=== PATIENT | male | born 1985 | race Caucasian/White ===

== ENCOUNTER 2024-03-09 09:45 | Emergency (ER) | payer OTHER, SELFPAY ==
[2024-03-09 09:47] VITALS: BP 91/63; PULSE 87; RESP 22; TEMP 36.3; O2SAT 95; BMI 50.2
--- NOTE | 2024-03-09 10:34 | CRLHL7_ITS ---
For Patients: As a result of the Cures Act, medical imaging exams and procedure reports are released immediately into your electronic medical record. You may view this report before your referring provider. If you have questions, please contact your health care provider. CLINICAL HISTORY: History of thrombectomy via right groin. Bleeding FINDINGS/IMPRESSION: Soft tissue edema at the surgical site with small 1.1 x 0.4 x 1.4 centimeter superficial complex fluid collection. Just deeper to this is a rounded complex fluid collection, avascular measuring 1.2 x 1.2 x 0.9 centimeters. Dictated by Moni Sahni MD @ 03/09/2024 12:00:20 PM (Electronically Signed)
[2024-03-09 10:48] VITALS: BP 117/55
--- OUTSIDE RECORDS SUMMARY | 2024-03-09 10:48 | XMS_ITS | Clinical Summary ---
Author Organization [facility] Address [address] [place] [address] Care Team Providers Care Ammonia Worker Name Role Phone Valentin Muñoz MD Primary Care Provider Valentin Muñoz MD Unavailable [phone] Allergies Active Allergy Reactions Criticality Noted Date Comments Cephalexin Hives Medium 10/14/2011 Medications Medication Sig Dispensed Refills Start Date End Date Status LORazepam (ATIVAN) 1 MG tablet Take 1 mg by mouth daily as needed for anxiety Active traZODone (DESYREL) 100 MG tablet Take 100 mg by mouth at bedtime 4 Active risperiDONE (RISPERDAL) 2 MG tablet Take 1 tablet by mouth at bedtime 4 Active FLUoxetine (PROZAC) 40 MG capsule Take 40 mg by mouth daily 4 Active hydrOXYzine (VISTARIL) 50 MG capsule Take 50 mg by mouth 3 times daily as needed for anxiety 4 Active acetaminophen (TYLENOL) 325 MG tabletIndications :Acute saddle pulmonary embolism with acute cor pulmonale (H) Take 2 tablets (650 mg) by mouth every 4 hours as needed for mild pain or other (and adjunct with moderate or severe pain or per patient request) 4 Active rivaroxaban ANTICOAGULANT (XARELTO) 2.5 MG TABS tabletIndications :DVT-PE Treatment Take 6 tablets (15 mg) by mouth 2 times daily (with meals) for 19 days, THEN 8 tablets (20 mg) daily (with dinner) for 30 days. 468 tablet 4 04/11/20 24 Active gabapentin (NEURONTIN) 600 MG tabletIndications :CAROLE (generalized anxiety disorder) Take 2 tablets (1,200 mg) by mouth at bedtime 30 tablet 2 4 Active amLODIPine (NORVASC) 10 MG tabletIndications :Essential hypertension Take 1 tablet (10 mg) by mouth daily HOLD IF SBP <130 90 tablet 3 4 Active rivaroxaban ANTICOAGULANT (XARELTO) 20 MG TABS tabletIndications :Acute deep vein thrombosis (DVT) of iliac vein of right lower extremity (H),Acute saddle pulmonary embolism with acute cor pulmonale (H) Take 1 tablet (20 mg) by mouth daily (with dinner) 90 tablet 4 Active amLODIPine (NORVASC) 10 MG tabletIndications :Essential hypertension TAKE 1 TABLET DAILY (OFFICE VISIT NEEDED PRIOR TO ADDITIONAL REFILLS) 90 tablet 3 3 02/22/20 24 Discontinued lisinopril-hydroc hlorothiazide (ZESTORETIC) 20-25 MG tabletIndications :Essential hypertension TAKE 2 TABLETS DAILY 180 tablet 3 3 02/22/20 24 Discontinued(Sto p at Discharge) OLANZapine (ZYPREXA) 10 MG tablet Take 1 tablet (10 mg) by mouth at bedtime 14 tablet 4 02/19/20 24 Discontinued(Med Rec(No AVS / No eCancel)) gabapentin (NEURONTIN) 800 MG tablet Take 1 tablet (800 mg) by mouth at bedtime 30 tablet 4 02/19/20 24 Discontinued(Med Rec(No AVS / No eCancel)) potassium chloride misa ER (KLOR-CON M10) 10 MEQ CR tablet Take 10 mEq by mouth daily 4 02/22/20 24 Discontinued(Sto p at Discharge) gabapentin (NEURONTIN) 600 MG tablet Take 1,200 mg by mouth at bedtime 02/23/20 24 Discontinued(Sto p at Discharge) amLODIPine (NORVASC) 10 MG tabletIndications :Essential hypertension Take 1 tablet (10 mg) by mouth daily HOLD IF SBP <130 90 tablet 3 4 02/23/20 24 Discontinued amLODIPine (NORVASC) 5 MG tabletIndications :Essential hypertension Take 1 tablet (5 mg) by mouth daily 30 tablet 2 07/06/02/23/20 24 Discontinued(Sto p at Discharge) Active Problems Problem Noted Date Diagnosed Date Acute deep vein thrombosis ( DVT) of iliac vein of right lower extremity 02/19/2024 Acute saddle pulmonary embolism with acute cor p ulmonale 02/19/2024 Severe recurrent major depre ssion without psychotic features 01/30/2024 CAROLE (generalized anxiety disorder) 01/30/2024 Suicidal ideation 01/30/2024 MDD (major depressive disorder), recurrent episo de, severe 01/30/2024 Insomnia, unspecified type 01/30/2024 Hypokalemia 01/17/2024 Adjustment disorder with anxious mood 01/17/2024 Psychosis, unspecified psychosis type 12/07/2023 Anxiety 12/07/2023 Paranoia 12/07/2023 Insomnia due to other mental disorder 12/07/2023 FAITH (obstructive sleep apnea) 03/24/2022 Overview: 03/21/2022 [facility] (410.0 lbs) - AHI 84.9, RDI 86.6, Supine AHI 103.6, REM AHI 76.3, Low O2 62.0%, Time Spent ?88% 143.1 minutes / Time Spent ?89% 188.1 minutes. Hypertension 03/12/2009 Morbid obesity 03/12/2009 Resolved Problems Problem Noted Date Diagnosed Date Resolved Date CARDIOVASCULAR SCREENING; LD L GOAL LESS THAN 160 06/20/2010 04/11/2023 Encounters Date Type Department Care Team Description 03/04/2024 Orders Only [facility] [address] [place] [phone] Minerva Campbell handle rounder operator deep vein thrombosis (DVT) of iliac vein of right lower extremity (H) (Primary Dx) 02/29/2024 4:02 PM CDT - 02/29/2024 11:59 PM CDT Hospital Encounter [facility] [address] [place] [phone] Valentin Muñoz MD 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) Discharge Disposition: Home or Self Care 02/28/2024 4:00 PM CDT [facility] [address] [place] [address] [address] [place] [phone] Valentin uMñoz MD Acute deep vein thrombosis (DVT) of iliac vein of right lower extremity (H) (Primary Dx); Acute saddle pulmonary embolism with acute cor pulmonale (H); 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) 02/28/2024 Travel 02/28/2024 Telephone [facility] [address] [facility] [address] [place] [phone] Josephine Krishnan PA-C sleep eval 02/21/[address] [facility] [place] [phone] Charanjit Rissa 02/19/2024 3:32 PM CDT - 02/23/2024 4:20 PM CDT Hospital Encounter [facility] [address] [place] [phone] Trigger, MD Ventura Lamb, Joshua Merino MD Hypertension (Primary Dx); Acute deep vein thrombosis (DVT) of iliac vein of right lower extremity (H); Acute saddle pulmonary embolism with acute cor pulmonale (H); Essential hypertension; CAROLE (generalized anxiety disorder) Discharge Disposition: Home or Self Care 02/19/2024 2:37 PM CDT - 02/19/2024 3:31 PM CDT Hospital Encounter [facility] [address] [place] [phone] Valentin Muñoz MD Right calf pain Discharge Disposition: Home or Self Care 02/19/2024 7:00 AM CDT Office Visit [facility] [address] [place] [address] [address] [place] [phone] Valentin Muñoz MD 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) (Primary Dx); Right calf pain 02/19/2024 Travel 02/18/2024 Travel 02/05/[address] [place] [phone] Valentin Muñoz MD Forms ([facility]) 02/05/2024 Telephone [facility] [address] [place] [address] [address] [place] [phone] Valentin Muñoz MD 02/02/2024 Telephone [facility] Intake [address] [facility] [place] [phone] Generic, Behavioral Intake, MH/CD Inpatient (/) 02/02/2024 Telephone [facility] Intake [address] [facility] [place] [phone] Generic, Behavioral Intake, MH/CD Inpatient 02/01/2024 Telephone [facility] Intake [address] [facility] [place] [phone] Generic, Behavioral Intake, MH/CD Inpatient 02/01/2024 [facility] Intake [address] [place] [phone] Generic, Behavioral Intake, MH/CD Inpatient 01/31/2024 [facility] [address] [place] [address] [address] [place] [phone] Valentin Muñoz MD Forms 01/31/2024 Telephone [facility] Intake [address] [facility] [place] [phone] Generic, Behavioral Intake, MH/CD Inpatient 01/30/2024 11:25 AM CDT - 02/02/2024 9:[address] [facility] Emergency Dept [address] [place] [phone] Mark Vidales MD Frohreich, Lucas, CNP Andish, Kevan K, MD Suicidal ideation; MDD (major depressive disorder), recurrent episode, severe (H); Psychosis, unspecified psychosis type (H); Insomnia, unspecified type Discharge Disposition: Psychiatric Hospital 01/30/2024 10:30 AM CDT Lab [facility] [address] [place] [phone] Acute paranoid reaction (H) 01/30/2024 Travel 01/24/2024 11:30 AM CDT Office Visit [facility] [address] [place] [address] [address] [place] [phone] Valentin Muñoz MD Severe recurrent major depressive disorder with psychotic features (H) (Primary Dx); Anxiety; Insomnia due to other mental disorder 01/24/2024 Travel 01/22/2024 Telephone [facility] [address] [facility] [address] [place] [phone] Valentin Muñoz MD Appointment; Same Day Appointment 01/17/2024 3:11 PM CDT - 01/18/2024 11:[address] [facility] Emergency Dept [address] [place] [phone] India Boyd MD Andish, Kevan K, MD Quigley, Emily, PREHEMMER COVER OPERATOR Anxiety; Psychosis, unspecified psychosis type (H); Other insomnia Discharge Disposition: Home or Self Care 01/17/2024 Travel 01/12/2024 Orders Only [facility] [address] [place] [phone] Sarah Robles APRN COVER OPERATOR 01/12/2024 Orders Only [facility] [id number] [place] [phone] Sarah Robles, LUIS COVER OPERATOR Acute paranoid reaction (H) (Primary Dx) 12/21/[address] [facility] Info [facility] [address] [facility] [place] [address] Scan, Non-Provider from Last 3 Months Immunizations Name Administration Dates Next Due COVID-19 MONOVALENT 12+ (Pfizer) 12/11/2020,040 09/2020 COVID-19 Monovalent Booster 18+ (Moderna) 08/16/2021 Historical DTP/aP 04/12/1991, 9,02/12/1985,1984,1984 Influenza (IIV3) PF 05/30/2012 Influenza Vaccine >6 months,quad, PF 08/16/2021 Influenza Vaccine, 6+MO IM (QUADRIVALENT W/PRESERVATIVES) 08/16/2021,06/15/2020,05/13/2019,2017,05/29/2017,05/26/2015 Influenza,INJ,MDCK,PF,Quad >6mo(Flucelvax) 06/15/2020 MMR 09/25/1996,10/22/1985 Poliovirus, inactivated (IPV) 04/12/1991 ,12/05/1988,02/12/1985,1984 TD,PF 7+ (Tenivac) 05/21/2005,09/25/1996 TDAP (Adacel,Boostrix) 04/11/2023,06/06/2012 Family History Medical History Relation Comments Diabetes Father Diabetes Mother Hypertension Mother Sleep Apnea Mother Hypertension Sister Relation Status Comments Father Alive Mother Alive Sister Social History Tobacco Use Types Packs/Day Years Used Date Smoking Tobacco: Never Passive Smoke Exposure: Never Smokeless Tobacco: Never Tobacco Cessation:Counseling Given: Not Answered Alcohol Use Standard Drinks/Week Comments Yes 0 (1 standard drink = 0.6 oz pur e alcohol) Social Connection and Isolat ion Panel [NHANES] Answer Date Recorded In a typical week, how many times do you talk on the phone with family, friends, or neighbors? Three times a week 04/04/2023 How often do you get togethe r with friends or relatives? More than three times a week 04/04/2023 How often do you attend chur or jain services? More than 4 times per year 04/04/2023 Do you belong to any clubs o r organizations such as episcopal groups, unions, fraternal or athletic groups, or school groups? Yes 04/04/2023 Attends Club or Organization Meetings Not on roger e 04/04/2023 Are you , , di vorced, , never , or living with a partner? 04/04/2023 AUDIT-C Answer Date Recorded Q1: How often do you have a drink containing alc ohol? Monthly or less 04/04/2023 Q2: How many drinks containi ng alcohol do you have on a typical day when you are drinking? 1 or 2 04/04/2023 Q3: How often do you have si x or more drinks on one occasion? Never 04/04/2023 Overall Financial Resource Strain (CARDIA) Answe r Date Recorded How hard is it for you to pa y for the very basics like food, housing, medical care, and heating? Not hard at all 04/04/2023 PHQ-2 Answer Date Recorded PHQ-2 Score 2 02/19/2024 [facility] - Occupational Stress Questionnaire Answer Date Recorded Do you feel stress - tense, restless, nervous, or anxious, or unable to sleep at night because your mind is troubled all the time - these days? Rather much 04/04/2023 Exercise Vital Sign Answer Date Recorde d On average, how many days pe r week do you engage in moderate to strenuous exercise (like a brisk walk)? 7 days 04/04/2023 On average, how many minutes do you engage in exercise at this level? 70 min 04/04/2023 Hunger Vital Sign Answer Date Recorded Within the past 12 months, y ou worried that your food would run out before you got the money to buy more. Never true 04/04/20 23 Within the past 12 months, t he food you bought just didn't last and you didn't have money to get more. Never true 04/04/2023 PRAPARE - Transportation Answer Date Re corded In the past 12 months, has l ack of transportation kept you from medical appointments or from getting medications? No 03/21 In the past 12 months, has l ack of transportation kept you from meetings, work, or from getting things needed for daily living? No 04/04/2023 Housing Stability Vital Sign Answer Dimas e Recorded In the last 12 months, was t here a time when you were not able to pay the mortgage or rent on time? No 04/04/2023 In the last 12 months, how many places have you lived? 1 04/04/2023 In the last 12 months, was t here a time when you did not have a steady place to sleep or slept in a penitentiary (including now)? No 04/04/2023 Adolescent Education Answer Date Record ed Getting School Help Needed Not on file 06/02 Sex and Gender Information Value Date Recorded Sex Assigned at Not on file Gender Identity Not on file Sexual Orientation Not on file Last Filed Vital Signs Vital Sign Reading Time Taken Comments Blood Pressure 94/67 02/28/2024 3:51 PM CDT Pulse 106 02/28/2024 3:43 PM CDT Temperature 36.4 ??C (97.6 ??F) 02/28/2024 3:43 PM CD T Respiratory Rate 24 02/28/2024 3:43 PM CDT Oxygen Saturation 96% 02/28/2024 3:43 PM CDT Inhaled Oxygen Concentration - - Weight 168.9 kg (372 lb 4.8 oz) 02/28/2024 3:43 PM CDT Height 182.9 cm (6') 02/28/2024 3:43 PM CDT Body Mass Index 50.49 02/28/2024 3:43 PM CDT Plan of Treatment Upcoming Encounters Date Type Department Care Team (Late st Contact Info) Description 04/01/2024 2:[address] [facility] [address] [place] [phone] India Kimble MD [facility] [address] [place], [place] [address] 04/01/2024 2:40 PM CDT Office Visit [facility] [address] [place] [phone] India Kimble MD [facility] [address] [place] [address] 04/09/2024 2:00 PM CDT Office Visit [facility] [address] [place] [phone] Valentin Muñoz MD [address] [facility] [place] [address] Roro Acevedo PA-C [address] [place], [place] [address] 06/18/2024 12:00 PM CDT Virtual Visit [facility] [address] [place] [address] Josephine Krishnan PA-C [address] [address] Health Maintenance Due Date Last Done Comments ANNUAL REVIEW OF HM ORDERS 1984 DEPRESSION ACTION PLAN 1984 HF ACTION PLAN 1984 Pneumococcal Vaccine: Pediatrics (0 to 5 Years) and At-Risk Patients (6 to 64 Years) (1 of 2 - PCV) 1990 COVID-19 Vaccine ( season) 2023 08/16/2021, 12/11/2020, 11/20/2020 YEARLY PREVENTIVE VISIT 04/11/2024 04/11/20 23, 01/28/2022, 10/09/2020, Additional history exists INFLUENZA VACCINE (#1) 2024 , 08/16/2021, 06/15/2020, Additional history exists PHQ-9 07/25/2024 01/24/2024 BMP 08/24/2024 02/22/2024, 07/0 10/2023, 02/20/2024, Additional history exists LIPID 01/29/2025 01/30/2024, 01/19, 03/19/2009 ALT 02/19/2025 02/20/2024, 07/0 08/2023, 01/17/2024, Additional history exists CBC 02/19/2025 02/20/2024, 07/0 08/2023, 01/30/2024, Additional history exists ADVANCE CARE PLANNING 10/10/2025 10/10/2020 GLUCOSE 02/21/2027 02/22/2024, 07/0 10/2023, 02/21/2024, Additional history exists DTAP/TDAP/TD IMMUNIZATION (7 - Td or Tdap) 04/11/2033 04/11/2023, 06/06/2012, 05/21/2005, Additional history exists IPV IMMUNIZATION Completed 04/12/1991, , 02/12/1985, Additional history exists TSH W/FREE T4 REFLEX Completed 01/30/2024, 01/16/2023, 02/26/2009 HEPATITIS B IMMUNIZATION Discontinued HEPATITIS C SCREENING Discontinued HIV SCREENING Discontinued HPV IMMUNIZATION Aged Out No longer e ligible based on patient's age to complete this topic MENINGITIS IMMUNIZATION Aged Out No l onger eligible based on patient's age to complete this topic RSV MONOCLONAL ANTIBODY Aged Out No l onger eligible based on patient's age to complete this topic Procedures Procedure Name Priority Date/Time Associated Diagnosis Comments CT HEAD W/O CONTRAST Routine 02/29/2024 4:23 PM CDT 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) POTASSIUM Timed 02/22/2024 6:21 PM CDT HEMOGLOBIN Routine 02/22/2024 6:24 AM CDT BASIC METABOLIC PANEL Routine 02/22/2024 6:24 AM CDT BLOOD GAS VENOUS STAT 02/21/2024 3:39 PM CDT HEMOGLOBIN STAT 02/21/2024 10:04 AM CDT GLUCOSE BY METER Routine 02/21/2024 7:35 AM CDT HEPARIN UNFRACTIONATED ANTI XA LEVEL Timed 02/21/2024 7:34 AM CDT POTASSIUM Timed 02/21/2024 7:34 AM CDT BASIC METABOLIC PANEL Routine 02/21/2024 7:34 AM CDT HEMOGLOBIN Routine 02/21/2024 7:34 AM CDT HEPARIN UNFRACTIONATED ANTI XA LEVEL Timed 02/21/2024 12:19 AM CDT POTASSIUM Timed 02/21/2024 12:19 AM CDT IR LOWER EXTREMITY VENOGRAM RIGHT Routine 02/20/2024 5:51 PM CDT Acute deep vein thrombosis (DVT) of iliac vein of right lower extremity (H) ACTIVATED CLOTTING TIME CELITE POCT Routine 02/20/2024 5:11 PM CDT HEPARIN UNFRACTIONATED ANTI XA LEVEL Timed 02/20/2024 1:14 PM CDT ECHO COMPLETE WITH CONTRAST Routine 02/20/2024 12:45 PM CDT TROPONIN T, HIGH SENSITIVITY Add-On 02/20/2024 5:33 AM CDT MAGNESIUM Add-On 02/20/2024 5:33 AM CDT CBC WITH PLATELETS Routine 02/20/2024 5: 33 AM CDT COMPREHENSIVE METABOLIC PANEL Routine 02/20/2024 5:33 AM CDT HEPARIN UNFRACTIONATED ANTI XA LEVEL Timed 02/20/2024 5:33 AM CDT GLUCOSE BY METER Routine 02/20/2024 1:34 AM CDT HEPARIN UNFRACTIONATED ANTI XA LEVEL Timed 02/19/2024 10:47 PM CDT IR PULMONARY ANGIOGRAM BILATERAL STAT 02/19/2024 9:06 PM CDT Acute deep vein thrombosis (DVT) of iliac vein of right lower extremity (H) CT CHEST PULMONARY EMBOLISM W CONTRAST STAT 02/19/2024 6:15 PM CDT CBC WITH PLATELETS & DIFFERENTIAL STAT 02/19/2024 3:55 PM CDT CBC WITH PLATELETS AND DIFFERENTIAL STAT 02/19/2024 3:55 PM CDT NT PROBNP INPATIENT STAT 02/19/2024 3 :55 PM CDT BLOOD GAS VENOUS STAT 02/19/2024 3:55 PM CDT TROPONIN T, HIGH SENSITIVITY STAT 02/19/2024 3:55 PM CDT COMPREHENSIVE METABOLIC PANEL STAT 02/19/2024 3:55 PM CDT D DIMER QUANTITATIVE STAT 02/19/2024 3:55 PM CDT EKG 12-LEAD, TRACING ONLY STAT 02/19/2024 3:43 PM CDT US LOWER EXTREMITY VENOUS DUPLEX RIGHT STAT 02/19/2024 3:09 PM CDT Right calf pain POTASSIUM STAT 02/02/2024 7:26 AM CDT POTASSIUM STAT 02/01/2024 11:41 PM CDT COVID-19 VIRUS (CORONAVIRUS) BY PCR STAT 01/31/2024 7:31 AM CDT URINE DRUG SCREEN STAT 01/30/2024 1:2 5 PM CDT URINE DRUG SCREEN PANEL STAT 01/30/20 24 1:25 PM CDT EXTRA RED TOP TUBE STAT 01/30/2024 1: 24 PM CDT EXTRA BLUE TOP TUBE STAT 01/30/2024 1 :24 PM CDT EXTRA TUBE STAT 01/30/2024 1:24 PM CDT TROPONIN T, HIGH SENSITIVITY STAT 01/30/2024 1:19 PM CDT BASIC METABOLIC PANEL STAT 01/30/2024 1:19 PM CDT CBC WITH PLATELETS STAT 01/30/2024 1: 19 PM CDT TSH WITH FREE T4 REFLEX Routine 01/30/20 10:21 AM CDT Acute paranoid reaction (H) LIPID REFLEX TO DIRECT LDL PANEL Routine 01/30/2024 10:21 AM CDT Acute paranoid reaction (H) GLUCOSE Routine 01/30/2024 10:21 AM CDT Acute paranoid reaction (H) HEMOGLOBIN A1C Routine 01/30/2024 10:21 AM CDT Acute paranoid reaction (H) URINE DRUG SCREEN STAT 01/17/2024 11: 57 PM CDT URINE DRUG SCREEN PANEL STAT 01/17/20 11:57 PM CDT CBC WITH PLATELETS & DIFFERENTIAL STAT 01/17/2024 3:36 PM CDT MAGNESIUM STAT 01/17/2024 3:36 PM CDT CBC WITH PLATELETS AND DIFFERENTIAL STAT 01/17/2024 3:36 PM CDT LACTIC ACID WHOLE BLOOD WITH 1X REPEAT IN 2 HR WHEN >2 STAT 01/17/2024 3:36 PM CDT COMPREHENSIVE METABOLIC PANEL STAT 01/17/2024 3:36 PM CDT EKG 12-LEAD, TRACING ONLY STAT 01/17/2024 3:35 PM CDT from Last 3 Months Results * CT Head w/o Contrast (02/29/2024 4:23 PM CDT) Anatomical Region Laterality Modality Head, SUBRAD CT NEURO, SUBRA D CT NEURO, UMP CT NEURO, RAD CT Computed Tomography Impressions 03/01/2024 5:26 PM CDT IMPRESSION: 1. No CT findings of acute intracranial process. 2. Incidental extracranial findings, as described. GRTEA CAMPO MD Narrative 03/01/2024 5:[address] SCAN OF THE HEAD WITHOUT CONTRAST ?? 02/29/2024 4:23 PM HISTORY: Fairly sudden onset of severe depression. Imaging to ensure there is not a major structural cause. 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). TECHNIQUE: ??Axial images of the head and coronal reformations without IV contrast material. Radiation dose for this scan was reduced using automated exposure control, adjustment of the mA and/or kV according to patient size, or iterative reconstruction technique. COMPARISON: None. FINDINGS: There is no evidence of intracranial hemorrhage, mass, acute infarct or anomaly. The ventricles are normal in size, shape and configuration. The brain parenchyma and subarachnoid spaces are normal. There is a probable small retention cyst or polyp in the right maxillary sinus. Otherwise, the visualized paranasal sinuses are free of significant disease. The mastoid and middle ear cavities appear clear. The bony calvarium and bones of the skull base appear intact. There is an ovoid nonspecific small soft tissue lesion that is mildly heterogeneous in density with a few small foci of internal calcification measuring approximately 11 mm, positioned within the subcutaneous soft tissues of the right parietal scalp (series 5 image 54), which may represent a sebaceous cyst/epidermal inclusion cyst. Procedure Note Greta Campo MD - 03/01/2024 CT SCAN OF THE HEAD WITHOUT CONTRAST 02/29/2024 4:23 PM HISTORY: Fairly sudden onset of severe depression. Imaging to ensure there is not a major structural cause. 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). TECHNIQUE: Axial images of the head and coronal reformations without IV contrast material. Radiation dose for this scan was reduced using automated exposure control, adjustment of the mA and/or kV according to patient size, or iterative reconstruction technique. COMPARISON: None. FINDINGS: There is no evidence of intracranial hemorrhage, mass, acute infarct or anomaly. The ventricles are normal in size, shape and configuration. The brain parenchyma and subarachnoid spaces are normal. There is a probable small retention cyst or polyp in the right maxillary sinus. Otherwise, the visualized paranasal sinuses are free of significant disease. The mastoid and middle ear cavities appear clear. The bony calvarium and bones of the skull base appear intact. There is an ovoid nonspecific small soft tissue lesion that is mildly heterogeneous in density with a few small foci of internal calcification measuring approximately 11 mm, positioned within the subcutaneous soft tissues of the right parietal scalp (series 5 image 54), which may represent a sebaceous cyst/epidermal inclusion cyst. IMPRESSION: 1. No CT findings of acute intracranial process. 2. Incidental extracranial findings, as described. GRETA CAMPO MD Valentin Muñoz MD IMG CT ORDERABLES * Potassium (02/22/2024 6:21 PM CDT) Only the most recent of5 resultswithin the time period is included. Potassium 3.8 3.4 - 5.3 mmol/L 02/22/2024 6:56 PM CDT LABORATORY Blood STRUCTURE OF FINGER OF LEFT HAND / Unknown Capillary / Unknown 02/22/2024 6:21 PM CDT 02/22/2024 6:40 PM CDT Catherine Wilburn DO LAB - BLOOD O RDERABLES LABORATORY [facility] [address], [address] [place] [address], [facility] [facility] [phone] * (ABNORMAL) Hemoglobin (02/22/2024 6:24 AM CDT) Only the most recent of3 resultswithin the time period is included. Hemoglobin 12.2(L) 13.3 - 17.7 g/dL 02/22/2024 7:04 AM CDT LABORATORY Blood STRUCTURE OF LEFT HAND / Unknown Venipuncture / Unknown 02/22/2024 6:24 AM CDT 02/22/2024 6:58 AM CDT Daiana Tai MD LAB - BLOOD ORDERABL ES LABORATORY [facility] [address], [address] [place] [address], [facility] [phone] * (ABNORMAL) Basic metabolic panel (02/22/2024 6:24 AM CDT) Only the most recent of3 resultswithin the time period is included. Sodium 134(L) 135 - 145 mmol/L 02/22/2024 7:31 AM CDT LABORATORY Potassium 3.3(L) 3.4 - 5.3 mmol/L 02/22/2024 7:31 AM CDT LABORATORY Chloride 101 98 - 107 mmol/L 02/22/2024 7:31 AM T LABORATORY Carbon Dioxide (CO2) 25 22 - 29 mmol/L 02/22/2024 7:31 AM T LABORATORY Anion Gap 8 7 - 15 mmol/L 02/22/2024 7:31 AM CDT LABORATORY Urea Nitrogen 12.7 6.0 - 20.0 mg/dL 02/22/2024 7:31 AM CDT LABORATORY Creatinine 0.72 0.67 - 1.17 mg/dL 02/22/2024 7:31 AM CDT LABORATORY GFR Estimate >90 >60 mL/min/1.7 3m2 02/22/2024 7:31 AM T LABORATORY Comment:eGFR calculated usin 2020 CKD-EPI equation. Calcium 8.2(L) 8.6 - 10.0 mg/dL 02/22/2024 7:31 AM CDT LABORATORY Glucose 99 70 - 99 mg/dL 02/22/2024 7:31 AM T LABORATORY Blood STRUCTURE OF LEFT HAND / Unknown Venipuncture / Unknown 02/22/2024 6:24 AM CDT 02/22/2024 6:58 AM CDT Daiana Tai MD LAB - BLOOD ORDERABL ES LABORATORY [facility] [address], [address] [place] [address], [facility] [phone] * (ABNORMAL) Blood gas venous (02/21/2024 3:39 PM CDT) Only the most recent of2 resultswithin the time period is included. pH Venous 7.45(H) 7.32 - 7.43 02/21/2024 3:55 PM CDT LABORATORY pCO2 Venous 35(L) 40 - 50 mm Hg 02/21/2024 3:55 PM CDT LABORATORY pO2 Venous 59(H) 25 - 47 mm Hg 02/21/2024 3:55 PM CDT LABORATORY Bicarbonate Venous 25 21 - 28 mmol/L 02/21/2024 3:55 PM CDT LABORATORY Base Excess/Deficit Venous 0.9 -3.0 - 3.0 mmol/L 02/21/2024 3:55 PM CDT LABORATORY FIO2 0 PAUL 02/21/2024 3:55 PM CDT LABORATORY Oxyhemoglobin Venous 91(H) 70 - 75 % 02/21/2024 3:55 PM CDT LABORATORY O2 Sat, Venous 92.4(H) 70.0 - 75.0 % 02/21/2024 3:55 PM CDT LABORATORY Blood, venous STRUCTURE OF LEFT HAND / Unknown Venipuncture / Unknown 02/21/2024 3:39 PM CDT 02/21/2024 3:54 PM CDT Narrative LABORATORY - 02/21/2024 3:55 PM CDT In healthy individuals, oxyhemoglobin (O2Hb) and oxygen saturation (SO2) are approximately equal. In the presence of dyshemoglobins, oxyhemoglobin can be considerably lower than oxygen saturation. Daiana Tai MD LAB - BLOOD ORDERABL ES LABORATORY [facility] [address] 1[address], Room [address] [place] [address], [facility] [phone] * (ABNORMAL) Glucose by meter (02/21/2024 7:35 AM CDT) Only the most recent of2 resultswithin the time period is included. GLUCOSE BY METER POCT 113(H) 70 - 99 mg/dL 02/21/2024 7:42 AM CDT LABORATORY POC Blood, Capillary BLOOD SPECIMEN / Unknown 02/21/2024 7:35 AM CDT 02/21/2024 7:42 AM CDT Joshua Whitehead MD LAB - BEAKER POCT LABORATORY POC [facility] [address], [address] [address], [facility] * Heparin Unfractionated Anti Xa Level (02/21/2024 7:34 AM CDT) Only the most recent of5 resultswithin the time period is included. [facility] Signature Anti Xa Unfractionated Heparin 0.38 For Reference Range, See Comment IU/mL 02/21/2024 8:01 AM CDT LABORATORY Blood STRUCTURE OF LEFT HAND / Unknown Venipuncture / Unknown 02/21/2024 7:34 AM CDT 02/21/2024 7:41 AM CDT Narrative LABORATORY - 02/21/2024 8:01 AM CDT Therapeutic Range: UFH: 0.25-0.50 IU/mL for low intensity dosing, 0.30-0.70 IU/mL for high intensity dosing DVT and PE. This test is not validated for other direct factor X inhibitors (e.g. rivaroxaban, apixaban, edoxaban, betrixaban, fondaparinux) and should not be used for monitoring of other medications. Joshua Whitehead MD LAB - BLOOD ORDERAB LES LABORATORY [facility] [address] 1[address], [address] [place] [address], [facility] [phone] * IR Lower Extremity Venogram Right (02/20/2024 5:51 PM CDT) Anatomical Region Laterality Modality Lower Extremity Radio Fluoroscop y Impressions 02/23/2024 7:51 AM CDT IMPRESSION: 1. Mechanical thrombectomy in the right common femoral, femoral, and above knee popliteal veins. Large volume of thrombus was removed. These segments are widely patent at completion. Concern will be for lack of inflow through the calf veins and popliteal veins into the femoral vein in recurrence of thrombosis. Patient to continue aggressive heparinization. 2. Flow stasis device applied with a pursestring suture at the access site of the popliteal vein, to be removed in one to two days. INDIA KIMBLE MD Narrative 02/23/2024 7:51 AM CDT INTERVENTIONAL RADIOLOGY RIGHT LOWER EXTREMITY VENOGRAM February 20, 2024 at 1651 hours HISTORY: 38-year-old patient with history of deep vein thrombosis in the right lower extremity. Patient had acute onset right lower extremity pain proximally one week prior. Patient had pulmonary embolus thrombectomy performed the day prior, request now made for thrombectomy of DVT in the right lower extremity. Patient had ultrasound examination suggesting thrombus extension into the external iliac venous system. I had a lengthy discussion with patient and regarding options including heparinization, mechanical thrombectomy, thrombolysis, and no thrombectomy with IVC filter. It was agreed to proceed with thrombectomy. TECHNIQUE: Patient was brought to the interventional radiology department and informed consent obtained. Patient was placed in a prone position. Skin overlying the right popliteal fossa was prepped and draped in standard sterile fashion. 1% lidocaine was used for local anesthetic. Ultrasound was used to confirm thrombus in the popliteal vein. With continuous ultrasound guidance, micropuncture kit was used to access the right popliteal vein. Over series of maneuvers, 6 Jordanian vascular sheath was placed. Berenstein catheter was placed in the popliteal vein, femoral vein, common femoral vein, common iliac vein, and IVC where venograms were performed. Catheter was then used to advance a super stiff Amplatz wire to the ipsilateral subclavian vein. 13 Jordanian sheath was then placed and 8 mm balloon angioplasties did FLAIR the basket of the sheath. Mechanical thrombectomy was then performed repeatedly with probable 15-28 passes. Also required exchange of three separate ClotTriever in two separate sheaths given the thrombus occluding both sections. Completion venogram was performed demonstrating good result. Minimal residual thrombus in the mid femoral vein, though nonocclusive. Multiple additional attempts were made for mechanical thrombectomy at this location, though unsuccessful. Venogram performed demonstrating otherwise widely patent femoral, common femoral, iliac and IVC venous systems at completion. Sheath was removed and pursestring suture applied. Limitation has no inflow to the femoral vein given diffuse thrombus in the popliteal and runoff veins. Plan will be for heparinization and hope that some flow is established into the femoral vein given concern for recurrent thrombosis. After removal of the sheath, hemostasis was achieved with manual compression for an additional 15 minutes. Sedation: Moderate level sedation was achieved with 5 mg IV Versed and 250 mcg IV fentanyl. Sedation time: 100 minutes. Please note the above medications were administered by interventional radiology staff under my direct supervision. The patient's vital signs were monitored and remained stable throughout the procedure. Patient had a heparin drip continued throughout the procedure and additional bolus of 4000 units of IV heparin was administered. Fluoroscopic time: 11.8 minutes. Air Kerma: 562.6 mGy. Contrast: 90 mL of Isovue administered intravenously without complication. Local anesthetic: 10 mL of 1% lidocaine. FINDINGS: A total of fifteen spot fluoroscopic images in venogram sequences were obtained throughout the procedure. Initial venogram confirms diffuse thrombosis throughout the right popliteal, femoral, and common femoral veins. A segment of the more proximal right common femoral vein is patent. Iliac veins are patent. Venogram performed in the iliac veins and IVC demonstrate wide patency. 8 mm balloon angioplasty performed within the above-knee popliteal vein. Mechanical thrombectomy then performed with variable success. Eventually, able to remove the thrombus with only a tiny residual nonocclusive segment in the mid femoral vein. This was unable to be removed after multiple attempts. The thrombectomized veins are widely patent at completion, though suspect minimal if any inflow to the femoral vein via the popliteal vein. Procedure Note India Kimble MD - 02/23/2024 INTERVENTIONAL RADIOLOGY RIGHT LOWER EXTREMITY VENOGRAM February 20, 2024 at 1651 hours HISTORY: 38-year-old patient with history of deep vein thrombosis in the right lower extremity. Patient had acute onset right lower extremity pain proximally one week prior. Patient had pulmonary embolus thrombectomy performed the day prior, request now made for thrombectomy of DVT in the right lower extremity. Patient had ultrasound examination suggesting thrombus extension into the external iliac venous system. I had a lengthy discussion with patient and regarding options including heparinization, mechanical thrombectomy, thrombolysis, and no thrombectomy with IVC filter. It was agreed to proceed with thrombectomy. TECHNIQUE: Patient was brought to the interventional radiology department and informed consent obtained. Patient was placed in a prone position. Skin overlying the right popliteal fossa was prepped and draped in standard sterile fashion. 1% lidocaine was used for local anesthetic. Ultrasound was used to confirm thrombus in the popliteal vein. With continuous ultrasound guidance, micropuncture kit was used to access the right popliteal vein. Over series of maneuvers, 6 Jordanian vascular sheath was placed. Berenstein catheter was placed in the popliteal vein, femoral vein, common femoral vein, common iliac vein, and IVC where venograms were performed. Catheter was then used to advance a super stiff Amplatz wire to the ipsilateral subclavian vein. 13 Jordanian sheath was then placed and 8 mm balloon angioplasties did FLAIR the basket of the sheath. Mechanical thrombectomy was then performed repeatedly with probable 15-28 passes. Also required exchange of three separate ClotTriever in two separate sheaths given the thrombus occluding both sections. Completion venogram was performed demonstrating good result. Minimal residual thrombus in the mid femoral vein, though nonocclusive. Multiple additional attempts were made for mechanical thrombectomy at this location, though unsuccessful. Venogram performed demonstrating otherwise widely patent femoral, common femoral, iliac and IVC venous systems at completion. Sheath was removed and pursestring suture applied. Limitation has no inflow to the femoral vein given diffuse thrombus in the popliteal and runoff veins. Plan will be for heparinization and hope that some flow is established into the femoral vein given concern for recurrent thrombosis. After removal of the sheath, hemostasis was achieved with manual compression for an additional 15 minutes. Sedation: Moderate level sedation was achieved with 5 mg IV Versed and 250 mcg IV fentanyl. Sedation time: 100 minutes. Please note the above medications were administered by interventional radiology staff under my direct supervision. The patient's vital signs were monitored and remained stable throughout the procedure. Patient had a heparin drip continued throughout the procedure and additional bolus of 4000 units of IV heparin was administered. Fluoroscopic time: 11.8 minutes. Air Kerma: 562.6 mGy. Contrast: 90 mL of Isovue administered intravenously without complication. Local anesthetic: 10 mL of 1% lidocaine. FINDINGS: A total of fifteen spot fluoroscopic images in venogram sequences were obtained throughout the procedure. Initial venogram confirms diffuse thrombosis throughout the right popliteal, femoral, and common femoral veins. A segment of the more proximal right common femoral vein is patent. Iliac veins are patent. Venogram performed in the iliac veins and IVC demonstrate wide patency. 8 mm balloon angioplasty performed within the above-knee popliteal vein. Mechanical thrombectomy then performed with variable success. Eventually, able to remove the thrombus with only a tiny residual nonocclusive segment in the mid femoral vein. This was unable to be removed after multiple attempts. The thrombectomized veins are widely patent at completion, though suspect minimal if any inflow to the femoral vein via the popliteal vein. IMPRESSION: 1. Mechanical thrombectomy in the right common femoral, femoral, and above knee popliteal veins. Large volume of thrombus was removed. These segments are widely patent at completion. Concern will be for lack of inflow through the calf veins and popliteal veins into the femoral vein in recurrence of thrombosis. Patient to continue aggressive heparinization. 2. Flow stasis device applied with a pursestring suture at the access site of the popliteal vein, to be removed in one to two days. INDIA KIMBLE MD Joshua Whitehead MD [facility] IR ORDERABLES * Activated clotting time celite, POCT (02/20/2024 5:11 PM CDT) [facility] Activated Clotting Time (Celite) POCT 140 74 - 150 seconds 02/20/2024 5:45 PM CDT LABORATORY POC Blood, venous BLOOD SPECIMEN / Unknown 02/20/2024 5:11 PM CDT 02/20/2024 5:45 PM CDT Joshua Whitehead MD [facility] POCT LABORATORY POC [facility] [address] 1[address], [address] [place] [address], [facility] * ECHO COMPLETE WITH CONTRAST (02/20/2024 12:45 PM CDT) [facility] LVEF 60% CARDIOLOGY RESULTS Anatomical Region Laterality Modality Echocardiography 02/20/2024 12:1 7 PM CDT Narrative 02/20/2024 12:56 PM [facility] [id number]^ZAIRE^DAIANA [facility] Echocardiography Laboratory [address] [place] [address] Name: ANT FONTAINE : 1985 Study Date: 02/20/2024 12:17 PM Age: 38 yrs Gender: Male Patient Location: [facility] Reason For Study: SOB Ordering Physician: DAIANA TAI Referring Physician: Valentin Muñoz Performed By: Earnest Bellamy BSA: 2.8 m2 Height: 72 in Weight: 380 lb HR: 94 BP: 120/78 mmHg Procedure Complete Portable Echo Adult. [employer]ison ([facility] #[id number]) given intravenously. Interpretation Summary 1. The left ventricle is normal in size. The visual ejection fraction is estimated at 60%. 2. The right ventricle is mildly dilated. The right ventricular systolic function is normal. 3. No valve disease. No previous echo for comparison. Left Ventricle The left ventricle is normal in size. There is normal left ventricular wall thickness. The visual ejection fraction is estimated at 60%. Left ventricular diastolic function is normal. Normal left ventricular wall motion. Right Ventricle The right ventricle is mildly dilated. The right ventricular systolic function is normal. Atria Normal left atrial size. Right atrial size is normal. There is no atrial shunt seen. Mitral Valve The mitral valve is normal in structure and function. Tricuspid Valve There is mild (1+) tricuspid regurgitation. Aortic Valve The aortic valve is normal in structure and function. Pulmonic Valve The pulmonic valve is normal in structure and function. Vessels Normal ascending, transverse (arch), and descending aorta. The inferior vena cava was normal in size with preserved respiratory variability. Pericardium There is no pericardial effusion. Rhythm Sinus rhythm was noted. MMode/2D Measurements & Calculations IVSd: 0.93 cm LVIDd: 5.1 cm LVIDs: 3.5 cm LVPWd: 1.1 cm FS: 31.0 % LV mass(C)d: 196.2 grams LV mass(C)dI: 70.1 grams/m2 Ao root diam: 4.0 cm asc Aorta Diam: 3.5 cm LVOT diam: 2.9 cm LVOT area: 6.4 cm2 Ao root diam index Ht(cm/m): 2.2 Ao root diam index BSA (cm/m2): 1.4 Asc Ao diam index BSA (cm/m2): 1.2 Asc Ao diam index Ht(cm/m): 1.9 RV Base: 5.6 cm RWT: 0.44 TAPSE: 2.7 cm Doppler Measurements & Calculations Ao V2 max: 102.0 cm/sec Ao max P.0 mmHg Ao V2 mean: 69.2 cm/sec Ao mean P.0 mmHg Ao V2 VTI: 17.4 cm LUCAS(I,D): 4.4 cm2 LUCAS(V,D): 4.5 cm2 LV V1 max P.1 mmHg LV V1 max: 72.0 cm/sec LV V1 VTI: 11.9 cm SV(LVOT): 76.2 ml SI(LVOT): 27.2 ml/m2 PA acc time: 0.14 sec TR max marbin: 281.0 cm/sec TR max P.6 mmHg AV Marbin Ratio (DI): 0.71 LUCAS Index (cm2/m2): 1.6 RV S Marbin: 16.0 cm/sec Report approved by: Shanel Farooq 02/20/2024 12:56 PM Procedure Note Navin Giles MD - 02/20/2024 [id number] COUNTS INCLUDE 234 BEDS AT THE [facility] [id number]^ZAIRE^DAIANA [facility] Echocardiography Laboratory [address] [place] [address] Name: ANT FONTAINE : 1985 Study Date: 02/20/2024 12:17 PM Age: 38 yrs Gender: Male Patient Location: [facility] Reason For Study: SOB Ordering Physician: DAIANA TAI Referring Physician: Valentin Muñoz Performed By: Earnest Bellamy BSA: 2.8 m2 Height: 72 in Weight: 380 lb HR: 94 BP: 120/78 mmHg Procedure Complete Portable Echo Adult. Kristal ([facility] #[id number]) givenintravenously. Interpretation Summary 1. The left ventricle is normal in size. The visual ejection fraction is estimated at 60%. 2. The right ventricle is mildly dilated. The right ventricular systolic function is normal. 3. No valve disease. No previous echo for comparison. Left Ventricle The left ventricle is normal in size. There is normal left ventricularwall thickness. The visual ejection fraction is estimated at 60%. Leftventricular diastolic function is normal. Normal left ventricular wall motion. Right Ventricle The right ventricle is mildly dilated. The right ventricular systolicfunction is normal. Atria Normal left atrial size. Right atrial size is normal. There is no atrialshunt seen. Mitral Valve The mitral valve is normal in structure and function. Tricuspid Valve There is mild (1+) tricuspid regurgitation. Aortic Valve The aortic valve is normal in structure and function. Pulmonic Valve The pulmonic valve is normal in structure and function. Vessels Normal ascending, transverse (arch), and descending aorta. The inferiorvena cava was normal in size with preserved respiratory variability. Pericardium There is no pericardial effusion. Rhythm Sinus rhythm was noted. MMode/2D Measurements & Calculations IVSd: 0.93 cm LVIDd: 5.1 cm LVIDs: 3.5 cm LVPWd: 1.1 cm FS: 31.0 % LV mass(C)d: 196.2 grams LV mass(C)dI: 70.1 grams/m2 Ao root diam: 4.0 cm asc Aorta Diam: 3.5 cm LVOT diam: 2.9 cm LVOT area: 6.4 cm2 Ao root diam index Ht(cm/m): 2.2 Ao root diam index BSA (cm/m2): 1.4 Asc Ao diam index BSA (cm/m2): 1.2 Asc Ao diam index Ht(cm/m): 1.9 RV Base: 5.6 cm RWT: 0.44 TAPSE: 2.7 cm Doppler Measurements & Calculations Ao V2 max: 102.0 cm/sec Ao max P.0 mmHg Ao V2 mean: 69.2 cm/sec Ao mean P.0 mmHg Ao V2 VTI: 17.4 cm LUCAS(I,D): 4.4 cm2 LUCAS(V,D): 4.5 cm2 LV V1 max P.1 mmHg LV V1 max: 72.0 cm/sec LV V1 VTI: 11.9 cm SV(LVOT): 76.2 ml SI(LVOT): 27.2 ml/m2 PA acc time: 0.14 sec TR max marbin: 281.0 cm/sec TR max P.6 mmHg AV Marbin Ratio (DI): 0.71 LUCAS Index (cm2/m2): 1.6 RV S Marbin: 16.0 cm/sec Report approved by: Shanel Farooq 02/20/2024 12:56 PM Daiana Tai MD CV ECHO ORDERABLES * (ABNORMAL) Troponin T, High Sensitivity (02/20/2024 5:33 AM CDT) Only the most recent of3 resultswithin the time period is included. [facility] Troponin T, High Sensitivity 41(H) <=22 ng/L 02/20/2024 10:17 AM CDT LABORATORY Comment: Either a High Sensitivity Troponin T baseline (0 hours) value = 100 ng/L, or an increase in High Sensitivity Troponin T = 7 ng/L at 2 hours compared to 0 hours (2-0 hours), suggests myocardial injury, and urgent clinical attention is required. ?? If the 2-0 hours increase is <7 ng/L, a High Sensitivity Troponin T result above gender-specific reference ranges warrants further evaluation. Recommendations for further evaluation include correlation with clinical decision-making tool (e.g., HEART), a 3rd High Sensitivity Troponin T test 2 hours after the 2nd (a 20% change from baseline would represent concern), admission for observation, close PCC/cardiology follow-up, or urgent outpatient provocative testing. Blood STRUCTURE OF RIGHT HAND / Unknown Venipuncture / Unknown 02/20/2024 5:33 AM CDT 02/20/2024 5:39 AM CDT Daiana Tai MD LAB - BLOOD ORDERABL ES Performing Organization Address City/[facility]/ZIP Co de Phone Number LABORATORY [facility] [address], [address] [address], [facility] [phone] * Magnesium (02/20/2024 5:33 AM CDT) Only the most recent of2 resultswithin the time period is included. Magnesium 2.2 1.7 - 2.3 mg/dL 02/20/2024 10:21 AM CDT LABORATORY Blood STRUCTURE OF RIGHT HAND / Unknown Venipuncture / Unknown 02/20/2024 5:33 AM CDT 02/20/2024 5:39 AM CDT Daiana Tai MD LAB - BLOOD ORDERABL ES LABORATORY [facility] [address], [address] [place] [address], [facility] [phone] * (ABNORMAL) Comprehensive metabolic panel (02/20/2024 5:33 AM CDT) Only the most recent of3 resultswithin the time period is included. Sodium 135 135 - 145 mmol/L 02/20/2024 6:01 AM [facility] LABORATORY Potassium 2.9(L) 3.4 - 5.3 mmol/L 02/20/2024 6:01 AM [facility] LABORATORY Carbon Dioxide (CO2) 24 22 - 29 mmol/L 02/20/2024 6:01 AM [facility] LABORATORY Anion Gap 13 7 - 15 mmol/L 02/20/2024 6:01 AM [facility] LABORATORY Urea Nitrogen 20.6(H) 6.0 - 20.0 mg/dL 02/20/2024 6:01 AM [facility] LABORATORY Creatinine 0.84 0.67 - 1.17 mg/dL 02/20/2024 6:01 AM [facility] LABORATORY GFR Estimate >90 >60 mL/min/1. 73m2 02/20/2024 6:01 AM [facility] LABORATORY Comment:eGFR calculated usny 2020 CKD-EPI equation. Calcium 8.7 8.6 - 10.0 mg/dL 02/20/2024 6:01 AM [facility] LABORATORY Chloride 98 98 - 107 mmol/L 02/20/2024 6:01 AM [facility] LABORATORY Glucose 125(H) 70 - 99 mg/dL 02/20/2024 6:01 AM [facility] LABORATORY Alkaline Phosphatase 53 40 - 150 U/L 02/20/2024 6:01 AM [facility] LABORAT[facility] AST 14 0 - 45 U/L 02/20/2024 6:01 AM [facility] LABORATORY Comment:Reference intervals for this test were updated on 01/30/2023 to more accurately reflect our healthy population. There may be differences in the flagging of prior results with similar values performed with this method. Interpretation of those prior results can be made in the context of the updated reference intervals. ALT 20 0 - 70 U/L 02/20/2024 6:01 AM [facility] LABORATORY Comment:Reference intervals for this test were updated on 01/30/2023 to more accurately reflect our healthy population. There may be differences in the flagging of prior results with similar values performed with this method. Interpretation of those prior results can be made in the context of the updated reference intervals. Protein Total 6.4 6.4 - 8.3 g/dL 02/20/2024 6:01 AM [facility] LABORATORY Albumin 3.5 3.5 - 5.2 g/dL 02/20/2024 6:01 AM CDT LABORATORY Bilirubin Total 1.0 <=1.2 mg/dL 02/20/2024 6:01 AM CDT LABORATORY Blood STRUCTURE OF RIGHT HAND / Unknown Venipuncture / Unknown 02/20/2024 5:33 AM CDT 02/20/2024 5:39 AM CDT Joshua Whitehead MD LAB - BLOOD ORDERAB LES LABORATORY [facility] [address] 1st floor, [address] [place] [address], [facility] [phone] * CBC with platelets (02/20/2024 5:33 AM CDT) Only the most recent of2 resultswithin the time period is included. WBC Count 8.5 4.0 - 11.0 10e3/uL 02/20/2024 5:42 AM CDT LABORATORY RBC Count 5.06 4.40 - 5.90 10e6/uL 02/20/2024 5:42 AM CDT LABORATORY Hemoglobin 14.1 13.3 - 17.7 g/dL 02/20/2024 5:42 AM CDT LABORATORY Hematocrit 40.1 40.0 - 53.0 % 02/20/2024 5:42 AM CDT LABORATORY MCV 79 78 - 100 fL 02/20/2024 5:42 AM CDT LABORATORY MCH 27.9 26.5 - 33.0 pg 02/20/2024 5:42 AM CDT LABORATORY MCHC 35.2 31.5 - 36.5 g/dL 02/20/2024 5:42 AM CDT LABORATORY RDW 13.1 10.0 - 15.0 % 02/20/2024 5:42 AM CDT LABORATORY Platelet Count 203 150 - 450 10e3/uL 02/20/2024 5:42 AM CDT LABORATORY Blood STRUCTURE OF RIGHT HAND / Unknown Venipuncture / Unknown 02/20/2024 5:33 AM CDT 02/20/2024 5:39 AM CDT Joshua Whitehead MD LAB - BLOOD ORDERAB LES LABORATORY [facility] [address] 1[address], [address] [place] [address], [facility] [phone] * IR Pulmonary Angiogram Bilateral (02/19/2024 9:06 PM CDT) Anatomical Region Laterality Modality Chest Radio Fluoroscop y Impressions 02/19/2024 9:38 PM CDT IMPRESSION: ?? 1. ??Primary percutaneous transluminal mechanical thrombectomy (extirpation of matter) from the bilateral pulmonary arterial systems as detailed above. PULMONARY ARTERIAL PRESSURES (mmHg): Right atrium prior to thrombectomy: 7 right atrium following thrombectomy: 4 Right ventricle prior to thrombectomy: 18 right ventricle following thrombectomy: 8 Main pulmonary artery prior to thrombectomy: 29 Main pulmonary artery following thrombectomy: 15 Right pulmonary artery prior to thrombectomy: 30 Right pulmonary artery following thrombectomy: 12 Left pulmonary artery prior to thrombectomy: 29 Left pulmonary artery following thrombectomy: 13 NAS EDOUARD MD Narrative 02/19/2024 9:38 PM CDT [facility] LOCATION: [facility] DATE: 02/19/2024 PROCEDURE: 1. ??SELECTIVE AND SUPERSELECTIVE BILATERAL PULMONARY ARTERIOGRAPHY. 2. ??EXTIRPATION OF MATTER FROM THE BILATERAL PULMONARY ARTERIES, PERCUTANEOUS APPROACH. 3. ??INTRA-ARTERIAL PRESSURE MEASUREMENTS. 4. ??ULTRASOUND GUIDANCE FOR VASCULAR ACCESS. 5. ??CLOSURE DEVICE. 6. ??MODERATE SEDATION. INTERVENTIONAL RADIOLOGIST: Nas Edouard M.D. INDICATION: 38-year-old male with bilateral pulmonary emboli including saddle embolus. Repeat pulmonary embolectomy is requested. CONSENT: The risks, benefits and alternatives of the stated procedure were discussed with the patient in detail. All questions were answered. Informed consent was given to proceed with the procedure. MODERATE SEDATION: None. 25 mcg IV fentanyl administered for analgesia. CONTRAST: 24 mL Omni 300 ANTIBIOTICS: None. ADDITIONAL MEDICATIONS: 4000 units IV heparin FLUOROSCOPIC TIME: 7.2 minutes. RADIATION DOSE: Air Kerma: 143 mGy. COMPLICATIONS: No immediate complications. STERILE BARRIER TECHNIQUE: Maximum sterile barrier technique was used. Cutaneous antisepsis was performed at the operative site with application of 2% chlorhexidine and large sterile drape. Prior to the procedure, the grinding machine operator portable and general assistant performed hand hygiene and wore hat, mask, sterile gown, and sterile gloves during the entire procedure. PROCEDURE: ?? The procedure, including the risks, benefits, and alternatives to the procedure itself were discussed with the patient. When all of their questions were answered informed written and verbal consent was obtained. The patient was then brought to the Interventional Radiology suite, placed in a supine position, and the patient's right groin was sterilely prepped and draped. The right common femoral vein was noted to be ultrasound patent. After giving local anesthesia with lidocaine, the right common femoral vein was punctured with a 21 gauge needle, under ultrasound guidance with a permanent image stored. A 0.018 inch wire advanced through the needle into the external iliac artery under fluoroscopic guidance. The needle was then exchanged over the wire for a 4 Jordanian coaxial dilator. The inner 3 Jordanian dilator and 0.018 inch wire were then exchanged for a 0.035 inch guidewire. The outer 4 Jordanian dilator was then exchanged over the guidewire for a 6 Jordanian vascular sheath. ?? Utilizing preclose technique 2 Perclose suture devices were deployed at the right common femoral venous access site in standard fashion. The 6 Jordanian sheath was removed over a 0.035 inch Amplatz wire. Serial dilatation was performed to 20 Jordanian followed by a 24 Jordanian dry seal sheath. A 6 Jordanian Grollman-type catheter was advanced over a 0.035 inch Bentson wire to the level of the right atrium followed by the right ventricle where pressure measurements were obtained. The catheter was then manipulated into the right pulmonary artery where pressure measurements were obtained. Digital subtraction right sided angiography was performed. A 0.035 inch 1 cm floppy tip Amplatz wire was manipulated into the right lower lobe segmental branch (greater than third order). A 24 Jordanian FlowTriever catheter was advanced into the main right pulmonary artery and primary percutaneous transluminal mechanical thrombectomy (extirpation of matter) was performed with removal of a moderate amount of thrombus from the main right and right lower and right upper lobe pulmonary arteries. Pressure measurement was obtained. The catheter was retracted in the main pulmonary artery. A 5 Jordanian KMP catheter, with the aid of a 0.035 inch angled Glidewire, was directed through the 24 Jordanian catheter and directed into the left pulmonary artery. Pressure measurements were obtained. A pulmonary arteriogram was obtained. Next the Amplatz wire was removed from the left pulmonary artery and advanced through the KMP catheter into the left pulmonary artery. Following this the KMP catheter was exchanged for the dilator of the 24 Jordanian catheter. This was advanced into the left pulmonary artery. The 24 Jordanian FlowTriever catheter was advanced into the main left pulmonary artery and primary percutaneous transluminal mechanical thrombectomy (extirpation of matter) was performed with removal of a moderate amount of thrombus from the left mid and left lower pulmonary arteries. A 20 Jordanian curved embolectomy catheter was advanced coaxially through the 24 Jordanian catheter and additional mechanical thrombectomy performed with a small to moderate amount of thrombus removed. Pressure measurements were obtained throughout as the catheter was removed. The catheters and sheaths were removed. Hemostasis was achieved via the previously placed Perclose suture devices. FINDINGS: Ultrasound demonstrates a patent and fully compressible right common femoral vein. A permanent image was stored. The digital subtraction pulmonary arteriography shows thrombus within the bilateral pulmonary arteries. Procedure Note Nas Edouard MD - 02/19/2024 [facility] LOCATION: [facility] DATE: 02/19/2024 PROCEDURE: 1. SELECTIVE AND SUPERSELECTIVE BILATERAL PULMONARY ARTERIOGRAPHY. 2. EXTIRPATION OF MATTER FROM THE BILATERAL PULMONARY ARTERIES, PERCUTANEOUS APPROACH. 3. INTRA-ARTERIAL PRESSURE MEASUREMENTS. 4. ULTRASOUND GUIDANCE FOR VASCULAR ACCESS. 5. CLOSURE DEVICE. 6. MODERATE SEDATION. INTERVENTIONAL RADIOLOGIST: Nas Edouard M.D. INDICATION: 38-year-old male with bilateral pulmonary emboli including saddle embolus. Repeat pulmonary embolectomy is requested. CONSENT: The risks, benefits and alternatives of the stated procedure were discussed with the patient in detail. All questions were answered. Informed consent was given to proceed with the procedure. MODERATE SEDATION: None. 25 mcg IV fentanyl administered for analgesia. CONTRAST: 24 mL Omni 300 ANTIBIOTICS: None. ADDITIONAL MEDICATIONS: 4000 units IV heparin FLUOROSCOPIC TIME: 7.2 minutes. RADIATION DOSE: Air Kerma: 143 mGy. COMPLICATIONS: No immediate complications. STERILE BARRIER TECHNIQUE: Maximum sterile barrier technique was used. Cutaneous antisepsis was performed at the operative site with application of 2% chlorhexidine and large sterile drape. Prior to the procedure, the grinding machine operator portable and general assistant performed hand hygiene and wore hat, mask, sterile gown, and sterile gloves during the entire procedure. PROCEDURE: The procedure, including the risks, benefits, and alternatives to the procedure itself were discussed with the patient. When all of their questions were answered informed written and verbal consent was obtained. The patient was then brought to the Interventional Radiology suite, placed in a supine position, and the patient's right groin was sterilely prepped and draped. The right common femoral vein was noted to be ultrasound patent. After giving local anesthesia with lidocaine, the right common femoral vein was punctured with a 21 gauge needle, under ultrasound guidance with a permanent image stored. A 0.018 inch wire advanced through the needle into the external iliac artery under fluoroscopic guidance. The needle was then exchanged over the wire for a 4 Jordanian coaxial dilator. The inner 3 Jordanian dilator and 0.018 inch wire were then exchanged for a 0.035 inch guidewire. The outer 4 Jordanian dilator was then exchanged over the guidewire for a 6 Jordanian vascular sheath. Utilizing preclose technique 2 Perclose suture devices were deployed at the right common femoral venous access site in standard fashion. The 6 Jordanian sheath was removed over a 0.035 inch Amplatz wire. Serial dilatation was performed to 20 Jordanian followed by a 24 Jordanian dry seal sheath. A 6 Jordanian Grollman-type catheter was advanced over a 0.035 inch Bentson wire to the level of the right atrium followed by the right ventricle where pressure measurements were obtained. The catheter was then manipulated into the right pulmonary artery where pressure measurements were obtained. Digital subtraction right sided angiography was performed. A 0.035 inch 1 cm floppy tip Amplatz wire was manipulated into the right lower lobe segmental branch (greater than third order). A 24 Jordanian FlowTriever catheter was advanced into the main right pulmonary artery and primary percutaneous transluminal mechanical thrombectomy (extirpation of matter) was performed with removal of a moderate amount of thrombus from the main right and right lower and right upper lobe pulmonary arteries. Pressure measurement was obtained. The catheter was retracted in the main pulmonary artery. A 5 Jordanian KMP catheter, with the aid of a 0.035 inch angled Glidewire, was directed through the 24 Jordanian catheter and directed into the left pulmonary artery. Pressure measurements were obtained. A pulmonary arteriogram was obtained. Next the Amplatz wire was removed from the left pulmonary artery and advanced through the KMP catheter into the left pulmonary artery. Following this the KMP catheter was exchanged for the dilator of the 24 Jordanian catheter. This was advanced into the left pulmonary artery. The 24 Jordanian FlowTriever catheter was advanced into the main left pulmonary artery and primary percutaneous transluminal mechanical thrombectomy (extirpation of matter) was performed with removal of a moderate amount of thrombus from the left mid and left lower pulmonary arteries. A 20 Jordanian curved embolectomy catheter was advanced coaxially through the 24 Jordanian catheter and additional mechanical thrombectomy performed with a small to moderate amount of thrombus removed. Pressure measurements were obtained throughout as the catheter was removed. The catheters and sheaths were removed. Hemostasis was achieved via the previously placed Perclose suture devices. FINDINGS: Ultrasound demonstrates a patent and fully compressible right common femoral vein. A permanent image was stored. The digital subtraction pulmonary arteriography shows thrombus within the bilateral pulmonary arteries. IMPRESSION: 1. Primary percutaneous transluminal mechanical thrombectomy (extirpation of matter) from the bilateral pulmonary arterial systems as detailed above. PULMONARY ARTERIAL PRESSURES (mmHg): Right atrium prior to thrombectomy: 7 right atrium following thrombectomy: 4 Right ventricle prior to thrombectomy: 18 right ventricle following thrombectomy: 8 Main pulmonary artery prior to thrombectomy: 29 Main pulmonary artery following thrombectomy: 15 Right pulmonary artery prior to thrombectomy: 30 Right pulmonary artery following thrombectomy: 12 Left pulmonary artery prior to thrombectomy: 29 Left pulmonary artery following thrombectomy: 13 NAS EDOUARD MD Nas Edouard MD [facility] IR ORDERABLES * (ABNORMAL) CT Chest Pulmonary Embolism w Contrast (02/19/2024 6:15 PM CDT) Radiologist flags Pulmonary embolism(AA) RADIOLOGY RESULTS Anatomical Region Laterality Modality Chest, SUBRAD CT BODY, UMP CT CHEST Computed Tomography 02/19/2024 6:15 PM CDT Impressions 02/19/2024 6:45 PM CDT IMPRESSION: 1. ??Stents of pulmonary embolism bilaterally including large saddle embolus. Pulmonary arteries and right ventricle appear mildly enlarged compatible with elevated right heart pressure. [Critical Result: Pulmonary embolism] Finding was identified on 02/19/2024 6:[address] Trujillo was contacted by me on 02/19/2024 6:44 PM CDT. Narrative 02/19/2024 6:45 PM CDT EXAM: CT CHEST PULMONARY EMBOLISM W CONTRAST LOCATION: [facility] DATE: 02/19/2024 INDICATION: known DVT, SOB COMPARISON: None. TECHNIQUE: CT chest pulmonary angiogram during arterial phase injection of IV contrast. Multiplanar reformats and MIP reconstructions were performed. Dose reduction techniques were used. CONTRAST: 83mL isovue 370 FINDINGS: ANGIOGRAM CHEST: Multiple pulmonary emboli are present bilaterally, including a large saddle embolus. Within the right lung, thrombus is seen within the right pulmonary artery, extending into the interlobar pulmonary artery as well as segmental and subsegmental pulmonary arteries in the basal right lower lobe. The left lung, segmental thrombosis in the left upper and basal left lower lobe pulmonary arteries. Pulmonary arteries are mildly dilated. Thoracic aorta normal in caliber. No aortic dissection. HEART: Right ventricle appears mildly dilated. No pericardial effusion. Mild proximal LAD coronary artery calcification, greater than expected for age. MEDIASTINUM: No adenopathy or mass. LUNGS AND PLEURA: Obscured by motion. No pulmonary mass or consolidation. No pleural effusion or pneumothorax. Moderate elevation of the right hemidiaphragm. LIMITED UPPER ABDOMEN: Negative. MUSCULOSKELETAL: Negative. Procedure Note Greta Juárez MD - 02/19/2024 EXAM: CT CHEST PULMONARY EMBOLISM W CONTRAST LOCATION: [facility] DATE: 02/19/2024 INDICATION: known DVT, SOB COMPARISON: None. TECHNIQUE: CT chest pulmonary angiogram during arterial phase injection ofIV contrast. Multiplanar reformats and MIP reconstructions were performed.Dose reduction techniques were used. CONTRAST: 83mL isovue 370 FINDINGS: ANGIOGRAM CHEST: Multiple pulmonary emboli are present bilaterally,including a large saddle embolus. Within the right lung, thrombus is seenwithin the right pulmonary artery, extending into the interlobar pulmonaryartery as well as segmental and subsegmental pulmonary arteries in the basal right lower lobe. The leftlung, segmental thrombosis in the left upper and basal left lower lobepulmonary arteries. Pulmonary arteries are mildly dilated. Thoracic aortanormal in caliber. No aortic dissection. HEART: Right ventricle appears mildly dilated. No pericardial effusion.Mild proximal LAD coronary artery calcification, greater than expected forage. MEDIASTINUM: No adenopathy or mass. LUNGS AND PLEURA: Obscured by motion. No pulmonary mass or consolidation.No pleural effusion or pneumothorax. Moderate elevation of the righthemidiaphragm. LIMITED UPPER ABDOMEN: Negative. MUSCULOSKELETAL: Negative. IMPRESSION: 1. Stents of pulmonary embolism bilaterally including large saddleembolus. Pulmonary arteries and right ventricle appear mildly enlargedcompatible with elevated right heart pressure. [Critical Result: Pulmonary embolism] Finding was identified on 02/19/2024 6:[address] Trujillo was contacted by me on 02/19/2024 6:44 PM CDT. Fco Trujillo MD IMG CT ORDERAB LES * CBC with platelets and differential (02/19/2024 3:55 PM CDT) Only the most recent of2 resultswithin the time period is included. WBC Count 10.6 4.0 - 11.0 10e3/uL 02/19/2024 4:11 PM CDT LABORATORY RBC Count 5.81 4.40 - 5.90 10e6/uL 02/19/2024 4:11 PM CDT LABORATORY Hemoglobin 16.4 13.3 - 17.7 g/dL 02/19/2024 4:11 PM CDT LABORATORY Hematocrit 46.1 40.0 - 53.0 % 02/19/2024 4:11 PM CDT LABORATORY MCV 79 78 - 100 fL 02/19/2024 4:11 PM CDT LABORATORY MCH 28.2 26.5 - 33.0 pg 02/19/2024 4:11 PM CDT LABORATORY MCHC 35.6 31.5 - 36.5 g/dL 02/19/2024 4:11 PM CDT LABORATORY RDW 13.1 10.0 - 15.0 % 02/19/2024 4:11 PM CDT LABORATORY Platelet Count 246 150 - 450 10e3/uL 02/19/2024 4:11 PM CDT LABORATORY % Neutrophils 75 % 02/19/2024 4:11 PM CDT LABORATORY % Lymphocytes 10 % 02/19/2024 4:11 PM CDT LABORATORY % Monocytes 12 % 02/19/2024 4:11 PM CDT LABORATORY % Eosinophils 1 % 02/19/2024 4:11 PM CDT LABORATORY % Basophils 0 % 02/19/2024 4:11 PM CDT LABORATORY % Immature Granulocytes 1 % 02/19/2024 4:11 PM CDT LABORATORY NRBCs per 100 WBC 0 <1 /100 024 4:11 PM CDT LABORATORY Absolute Neutrophils 7.9 1.6 - 8.3 10e3/uL 02/19/2024 4:11 PM CDT LABORATORY Absolute Lymphocytes 1.1 0.8 - 5.3 10e3/uL 02/19/2024 4:11 PM CDT LABORATORY Absolute Monocytes 1.3 0.0 - 1.3 10e3/uL 02/19/2024 4:11 PM CDT LABORATORY Absolute Eosinophils 0.1 0.0 - 0.7 10e3/uL 02/19/2024 4:11 PM CDT LABORATORY Absolute Basophils 0.0 0.0 - 0.2 10e3/uL 02/19/2024 4:11 PM CDT LABORATORY Absolute Immature Granulocytes 0.1 <=0.4 10e3/uL 02/19/2024 4:11 PM CDT LABORATORY Absolute NRBCs 0.0 10e3/uL 02/19/2024 4:11 PM CDT LABORATORY Blood BLOOD SPECIMEN / Unknown Venipuncture / Unknown 02/19/2024 3:55 PM CDT 02/19/2024 3:59 PM CDT Fco Trujillo MD LAB - BLOOD OR DERABLES LABORATORY [facility] [address] 1[address], [address] [place] [address], [facility] [phone] * (ABNORMAL) Nt probnp inpatient (BNP) (02/19/2024 3:55 PM CDT) N terminal Pro BNP Inpatient 1,998(H) 0 - 450 pg/mL 02/19/2024 4:31 PM CDT LABORATORY Comment: Reference range shown and results flagged as abnormal are suggested inpatient cut points for confirming diagnosis if CHF in an acute setting. Establishing a baseline value for each individual patient is useful for follow-up. An inpatient or emergency department NT-proPBNP <300 pg/mL effectively rules out acute CHF, with 99% negative predictive value. The outpatient non-acute reference range for ruling out CHF is: 0-125 pg/mL (age 18 to less than 75) 0-450 pg/mL (age 75 yrs and older) Blood BLOOD SPECIMEN / Unknown Venipuncture / Unknown 02/19/2024 3:55 PM CDT 02/19/2024 3:59 PM CDT Fco Trujillo MD LAB - BLOOD OR DERABLES Performing Organization Address City/[facility] Co de Phone Number LABORATORY [facility] [address], [address] [address], [facility] [phone] * (ABNORMAL) D dimer quantitative (02/19/2024 3:55 PM CDT) [facility] D-Dimer Quantitative 6.32(H) 0.00 - 0.50 ug/mL FEU 02/19/2024 4:27 PM CDT LABORATORY Blood BLOOD SPECIMEN / Unknown Venipuncture / Unknown 02/19/2024 3:55 PM CDT 02/19/2024 3:59 PM CDT Narrative LABORATORY - 02/19/2024 4:27 PM CDT This D-dimer assay is intended for use in conjunction with a clinical pretest probability assessment model to exclude pulmonary embolism (PE) and deep venous thrombosis (DVT) in outpatients suspected of PE or DVT. The cut-off value is 0.50 ug/mL FEU. Fco Trujillo MD LAB - BLOOD OR DERABLES Performing Organization Address City/[facility]/ZIP Co de Phone Number LABORATORY [facility] [address], [address] [address], [facility] [phone] * EKG 12-lead, tracing only (02/19/2024 3:43 PM CDT) Only the most recent of2 resultswithin the time period is included. Systolic Blood Pressure mmHg RADIOLOGY RESULTS Diastolic Blood Pressure mmHg RADIOLOGY RESULTS Ventricular Rate 111 BPM RAD IOLOGY RESULTS Atrial Rate 111 BPM RADIOLOG Y RESULTS NJ Interval 150 ms RADIOLOG Y RESULTS QRS Duration 100 ms RADIOLO GY RESULTS QT 360 ms RADIOLOGY RESULTS QTc 489 ms RADIOLOGY RESULTS P [place] 38 degrees RADIOLOGY RESULTS R AXIS -21 degrees RADIOLOGY RESULTS T [place] -7 degrees RADIOLOGY RESULTS Interpretation ECG Sinus tachycardia T wave abnormality, consider anterior ischemia Abnormal ECG When compared with ECG of 17-JAN-2024 15:35, T wave inversion now evident in Anterior leads Confirmed by GENERATED REPORT, COMPUTER ([id number]), fan mail editor Jeimy Hale ([id number]) on 02/19/2024 6:00:09 PM RADIOLOGY RESULTS 02/19/2024 3:43 PM CDT 02/19/2024 6:00 PM CDT Fco Trujillo MD ECG ORDERABLES RADIOLOGY RESULTS * US Lower Extremity Venous Duplex Right (02/19/2024 3:09 PM CDT) Anatomical Region Laterality Modality Lower Extremity Ultrasound Impressions 02/19/2024 3:33 PM CDT IMPRESSION: Extensive deep vein thrombosis in the right lower extremity from at least the right external iliac to the ankle as well as superficial thrombus in the right small and great saphenous veins. Consider IR consultation. Findings were discussed with Dr. Muñoz at the time of the scan. Patient was sent to the emergency room and I talked to the emergency provider before sending him as this patient was also short of breath. GALI GILES DO Narrative 02/19/2024 3:33 PM CDT US LOWER EXTREMITY VENOUS DUPLEX RIGHT 02/19/2024 3:09 PM CLINICAL HISTORY/INDICATION: Right calf pain. COMPARISON: None relevant. TECHNIQUE: Grayscale, color-flow, and spectral waveform analysis were performed of the deep veins of the right lower extremity FINDINGS: Extensive deep vein thrombosis including the right external iliac, common femoral, profunda femoral, popliteal, posterior tibial, peroneal veins. More proximal common iliac or IVC could not be visualized secondary to patient's body habitus. There is also superficial thrombus in the great saphenous vein throughout the thigh and calf. The contralateral left common femoral vein demonstrates normal compressibility, spectral waveform, color flow and augmentation. Procedure Note Gali Giles DO - 02/19/2024 US LOWER EXTREMITY VENOUS DUPLEX RIGHT 02/19/2024 3:09 PM CLINICAL HISTORY/INDICATION: Right calf pain. COMPARISON: None relevant. TECHNIQUE: Grayscale, color-flow, and spectral waveform analysis were performed of the deep veins of the right lower extremity FINDINGS: Extensive deep vein thrombosis including the right external iliac, common femoral, profunda femoral, popliteal, posterior tibial, peroneal veins. More proximal common iliac or IVC could not be visualized secondary to patient's body habitus. There is also superficial thrombus in the great saphenous vein throughout the thigh and calf. The contralateral left common femoral vein demonstrates normal compressibility, spectral waveform, color flow and augmentation. IMPRESSION: Extensive deep vein thrombosis in the right lower extremity from at least the right external iliac to the ankle as well as superficial thrombus in the right small and great saphenous veins. Consider IR consultation. Findings were discussed with Dr. Muñoz at the time of the scan. Patient was sent to the emergency room and I talked to the emergency provider before sending him as this patient was also short of breath. GALI GILES DO Valentin Muñoz MD [facility] ORDERABLES * Asymptomatic COVID-19 Virus (Coronavirus) by PCR Nose (01/31/2024 7:31 AM CDT) SARS CoV2 PCR Negative Negative 01/31/2024 8:14 AM CDT LABORATORY Comment:NEGATIVE: SARS-CoV-2 (COVID-19) RNA not detected, presumed negative. Swab NASAL STRUCTURE / Unknown Non-blood Collection / Unknown 01/31/2024 7:31 AM CDT 01/31/2024 7:36 AM CDT Narrative LABORATORY - 01/31/2024 8:14 AM CDT Testing was performed using the Xpert Xpress SARS-CoV-2 Assay on the [employer]. Additional information about this Emergency Use Authorization (EUA) assay can be found via the Lab Guide. This test should be ordered for the detection of SARS-CoV-2 in individuals who meet SARS-CoV-2 clinical and/or epidemiological criteria as well as from individuals without symptoms or other reasons to suspect COVID-19. Test performance for asymptomatic patients has only been established in anterior nasal swab specimens. This test is for in vitro diagnostic use under the FDA EUA for laboratories certified under CLIA to perform high complexity testing. This test has not been FDA cleared or approved. A negative result does not rule out the presence of PCR inhibitors in the specimen or target RNA concentration below the limit of detection for the assay. The possibility of a false negative should be considered if the patient's recent exposure or clinical presentation suggests COVID-19. This test was validated by the [facility]. This laboratory is certified under the Clinical Laboratory Improvement Amendments (CLIA) as qualified to perform high complexity laboratory testing. Rene Triplett MD LAB - MICRO GENERAL ORDERABLES LABORATORY [facility] [address], [address] [place] [address], [facility] [phone] * Urine Drug Screen Panel (01/30/2024 1:25 PM CDT) Only the most recent of2 resultswithin the time period is included. [facility] Amphetamines Urine Screen Negative Screen Negative 01/30/2024 1:55 PM CDT LABORATORY Comment:Cutoff for a negativ e amphetamine is less than 500 ng/mL. Barbituates Urine Screen Negative Screen Negative 01/30/2024 1:55 PM CDT LABORATORY Comment:Cutoff for a negativ e barbiturate is less than 200 ng/mL. Benzodiazepine Urine Screen Negative Screen Negative 01/30/2024 1:55 PM CDT LABORATORY Comment:Cutoff for a negativ e benzodiazepine is less than 100 ng/mL. Cannabinoids Urine Screen Negative Screen Negative 01/30/2024 1:55 PM CDT LABORATORY Comment:Cutoff for a negativ e cannabinoid is less than 50 ng/mL. Cocaine Urine Screen Negative Screen Negative 01/30/2024 1:55 PM CDT LABORATORY Comment:Cutoff for a negativ e cocaine is less than 300 ng/mL. Fentanyl Qual Urine Screen Negative Screen Negative 01/30/2024 1:55 PM CDT LABORATORY Comment:Cutoff for negative fentanyl is less than 5 ng/mL. Opiates Urine Screen Negative Screen Negative 01/30/2024 1:55 PM CDT LABORATORY Comment:Cutoff for a negativ e opiate is less than 300 ng/mL. PCP Urine Screen Negative Screen Negative 01/30/2024 1:55 PM CDT LABORATORY Comment:Cutoff for a negativ e PCP is less than 25 ng/mL. Urine MID-STREAM URINE SPECIMEN / Unknown Non-blood Collection / Unknown 01/30/2024 1:25 PM CDT 01/30/2024 1:29 PM CDT Mark Vidales MD LAB - URINE ORDERABL ES LABORATORY [facility] [address], [address] [address], [facility] [phone] * Extra Red Top Tube (01/30/2024 1:24 PM CDT) [facility] Hold Specimen [facility] 01/30/2024 2:32 PM CDT LABORATORY Blood STRUCTURE OF RIGHT UPPER LIMB / Unknown Venipuncture / Unknown 01/30/2024 1:24 PM CDT 01/30/2024 1:28 PM CDT Mark Vidales MD LAB - BLOOD ORDERABL ES LABORATORY [facility] [address], [address] [place] [address], [place] [phone] * Extra Blue Top Tube (01/30/2024 1:24 PM CDT) Hold Specimen [facility] 01/30/2024 2:32 PM CDT LABORATORY Blood STRUCTURE OF RIGHT UPPER LIMB / Unknown Venipuncture / Unknown 01/30/2024 1:24 PM CDT 01/30/2024 1:28 PM CDT Mark Vidales MD LAB - BLOOD ORDERABL ES LABORATORY [facility] [address], [address] [place] [address], [facility] [phone] * TSH with free T4 reflex (01/30/2024 10:21 AM CDT) Pathologist [facility] TSH 1.43 0.30 - 4.20 uIU/mL 01/30/2024 8:09 PM CDT [facility] Blood BLOOD SPECIMEN / Unknown Venipuncture / Unknown 01/30/2024 10:21 AM CDT 01/30/2024 10:21 AM CDT Sarah Robles APRN, CNP LAB - BLOOD OR DERABLES [facility] LAB[facility]ATORY [facility] [address] [facility], [address] [place] [address], [facility] * Lipid panel reflex to direct LDL Fasting (01/30/2024 10:21 AM CDT) Cholesterol 108 <200 mg/dL 01/30/2024 8:09 PM CDT [facility] Triglycerides 101 <150 mg/dL 01/30/2024 8:09 PM CDT [facility] Direct Measure HDL 40 >=40 mg/dL 2023 8:09 PM CDT [facility] LDL Cholesterol Calculated 48 <=100 mg/dL 01/30/2024 8:09 PM CDT [facility] Non HDL Cholesterol 68 <130 mg/dL 01/30/2024 8:09 PM CDT [facility] Patient Fasting > 8hrs? Yes 01/30/2024 8:09 PM CDT [facility] Blood BLOOD SPECIMEN / Unknown Venipuncture / Unknown 01/30/2024 10:21 AM CDT 01/30/2024 10:21 AM CDT Narrative [facility] - 01/30/2024 8:09 PM CDT Cholesterol Desirable: ??<200 mg/dL Triglycerides Normal: ??Less than 150 mg/dL Borderline High: ??150-199 mg/dL High: ??200-499 mg/dL Very High: ??Greater than or equal to 500 mg/dL Direct Measure HDL Female: ??Greater than or equal to 50 mg/dL Male: ??Greater than or equal to 40 mg/dL LDL Cholesterol Desirable: ??<100mg/dL Above Desirable: ??100-129 mg/dL Borderline High: ??130-159 mg/dL High: ??160-189 mg/dL Very High: ??>= 190 mg/dL Non HDL Cholesterol Desirable: ??130 mg/dL Above Desirable: ??130-159 mg/dL Borderline High: ??160-189 mg/dL High: ??190-219 mg/dL Very High: ??Greater than or equal to 220 mg/dL Sarah Robles APRN, CNP LAB - BLOOD OR DERABLES [facility] LAB[facility] [address] [facility], [address] [phone] * (ABNORMAL) Hemoglobin A1c (01/30/2024 10:21 AM CDT) Hemoglobin A1C 5.9(H) 0.0 - 5.6 % 01/30/2024 10:28 AM CDT LABORATORY Comment: Normal <5.7% Prediabetes 5.7-6.4% ?? Diabetes 6.5% or higher Note: Adopted from ADA consensus guidelines. Blood BLOOD SPECIMEN / Unknown Venipuncture / Unknown 01/30/2024 10:21 AM CDT 01/30/2024 10:21 AM CDT Sarah Robles APRN COVER OPERATOR LAB - BLOOD OR DERABLES LABORATORY [facility] [address] [facility] (no room number, 1st floor of clinic) [place] [phone], [facility] * (ABNORMAL) Glucose (01/30/2024 10:21 AM CDT) Glucose 109(H) 70 - 99 mg/dL 01/30/2024 8:09 PM CDT [facility] LAB[facility]ATORY Patient Fasting > 8hrs? Yes 01/30/2024 8:09 PM CDT [facility] LAB[facility] Blood BLOOD SPECIMEN / Unknown Venipuncture / Unknown 01/30/2024 10:21 AM CDT 01/30/2024 10:21 AM CDT Sarah Robles APRN COVER OPERATOR LAB - BLOOD OR DERABLES U LABORATORY [facility] [address] [facility], [address] [place] [address], [facility] * Lactic acid whole blood with 1x repeat in 2 hr when >2 (01/17/2024 3:36 PM CDT) Lactic Acid, Initial 1.5 0.7 - 2.0 mmol/L 01/17/2024 3:48 PM CDT LABORATORY Blood STRUCTURE OF RIGHT HAND / Unknown Venipuncture / Unknown 01/17/2024 3:36 PM CDT 01/17/2024 3:42 PM CDT India Boyd MD LAB - BLOOD [facility] LABORATORY [facility] [address], [address] [place] [address], [facility] [phone] from Last 3 Months Advance Directives For more information, please contact: [phone] * Full Code (Latest Code Status on File) Date Activated Date Inactivated Comments 02/19/2024 9:52 PM 02/23/2024 6:57 PM All basic and advanced life-sustaining interventions are performed as appropriate Question Answer Comments Code status determined by: Discussion with roz rodney/ legal decision maker Care Teams Ammonia Worker Relationship Specialty Start Date End Date Valentin Muñoz MD [address] [place] [address] [place] [address] PCP - General Internal Medicine 10/08/10 Valentin Muñoz MD [address] [place] [address] [place] [phone] Assigned PCP 10/03/16
--- OUTSIDE RECORDS SUMMARY | 2024-03-09 10:49 | XMS_ITS | Encounter Summary ---
Author Organization [place] Address [address] [place] [address] Care Team Providers Care Ocean Biologist Name Role Phone Valentin Muñoz MD Primary Care Provider [phone] Valentin Muñoz MD Unavailable [phone] Encounter Details Date Type Department Care Team (Latest Contact Info) Description 02/28/2024 Travel Social History Tobacco Use Types Packs/Day Years Used Date Smoking Tobacco: Never Passive Smoke Exposure: Never Smokeless Tobacco: Never Alcohol Use Standard Drinks/Week Comments Yes 0 [...] How often do you attend chur or presybeterian services? More than 4 times per year 04/04/2023 Do you belong to any clubs o r organizations such as scientologist groups, unions, fraternal or athletic groups, or [...] Answer Date Recorded PHQ-2 Score 2 02/19/2024 [facility] - Occupational Stress [...] place to sleep or slept in a senior living (including now)? No 04/04/2023 Adolescent Education Answer Date Record ed Getting School Help Needed Not on file 06/02 Sex and Gender Information Value Date Recorded Sex Assigned at Not on file Gender Identity Not on file Sexual Orientation Not on file documented as of this encounter Plan of Treatment Upcoming Encounters Date Type Department Care Team (Late st Contact Info) Description 04/01/2024 2:[address] [facility] [address] [place] [id number] Omero Pham MD [facility] [address] [place] [address] 04/01/2024 2:40 PM CDT Office Visit [facility] [place] [address] [place] [phone] Omero Pham MD [facility] [address] [place] [address] 04/09/2024 2:00 PM CDT Office Visit [facility] [address] [place] [phone] Valentin Muñoz MD [address] [facility] [address] [place] [phone] Roro Acevedo PA-C [address] [place], [place] [phone] 06/18/2024 12:00 PM CDT Virtual Visit [facility] [place] [address] [place] [phone] Josephine Krishnan PA-C [address] [place], [place] [id number] documented as of this encounter Visit Diagnoses Not on filedocumented in this encounter Additional Health Concerns Assessment Noted Time PHQ-9 Depression Total Score: 24 024 11:07 AM CDT documented as of this encounter Care Teams Ocean Biologist Relationship Specialty Start Date End Date Valentin Muñoz MD [address] [facility] [place] [address] PCP - General Internal Medicine 10/08/10 Valentin Muñoz MD [address] [facility] [place] [address] Assigned PCP 10/03/16 documented as of this encounter
--- OUTSIDE RECORDS SUMMARY | 2024-03-09 10:49 | XMS_ITS | Referral Summary ---
Author Organization [facility] Address [address] [place] [address]. [place] [address] Care Team Providers Care Marketing And Development Coordinator Name Role Phone Valentin Muñoz MD Primary Care Provider [phone] Valentin Muñoz MD Unavailable [phone] Encounters Date Type Department Care Team Description 03/04/2024 Orders Only [facility] [place] [address] [place] [phone] Minerva Campbell RN Acute deep vein thrombosis (DVT) of iliac vein of right lower extremity (H) (Primary Dx) 02/29/2024 4:02 PM CDT - 02/29/2024 11:59 PM CDT Hospital Encounter [facility] [address] [place] [phone] Valentin Muñoz MD 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) Discharge Disposition: Home or Self Care 02/28/2024 Travel 02/28/2024 Telephone [facility] [place] [address] [facility] [address] [place] [phone] Josephine Krishnan PA-C sleep eval 02/28/2024 4:00 PM CDT [facility] [address] [facility] [address] [place] [phone] Valentin Muñoz MD Acute deep vein thrombosis (DVT) of iliac vein of right lower extremity (H) (Primary Dx); Acute saddle pulmonary embolism with acute cor pulmonale (H); 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) 02/19/2024 3:32 PM CDT - 02/23/2024 4:20 PM CDT Hospital Encounter [facility] [address] [place] [phone] Cassandra, MD Ventura Lamb Paul Dayan, MD Hypertension (Primary Dx); Acute deep vein thrombosis (DVT) of iliac vein of right lower extremity (H); Acute saddle pulmonary embolism with acute cor pulmonale (H); Essential hypertension; CAROLE (generalized anxiety disorder) Discharge Disposition: Home or Self Care 02/21/2024 Telephone [facility] [address] [place] [phone] Sedrick Donohueelle 02/19/2024 2:37 PM CDT - 02/19/2024 3:31 PM CDT Hospital Encounter [facility] [address] 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) (Primary Dx); Right calf pain 02/18/2024 Travel 02/05/[address] [place] [phone] Valentin Muoñz MD Forms ([employer]LIFE) 02/05/[address] [place] [phone] Valentin Muñoz MD 02/02/2024 Telephone [facility] Intake [address] [place] [phone] Generic, Behavioral Intake, MD MH/CD Inpatient (/) 02/02/2024 Telephone [facility] Health Intake [address] [place] [address] Generic Behavioral IntakeMD MH/CD Inpatient 01/30/2024 11:25 AM CDT - 02/02/2024 9:[address] [facility] Dept [address] [place] [phone] Mark Vidales MD Frohreich, Lucas, CNP Andish, Kevan K, MD Suicidal ideation; MDD (major depressive disorder), recurrent episode, severe (H); Psychosis, unspecified psychosis type (H); Insomnia, unspecified type Discharge Disposition: Psychiatric Hospital 02/01/2024 Telephone [facility] Intake [address] [place] [address] Darrin Behavioral IntakeMD /CD Inpatient 02/01/2024 Telephone [facility] Intake [address] [place] [address] Generic Behavioral IntakeMD /CD Inpatient 01/31/[address] [place] [phone] Valentin Muñoz MD Forms 01/31/2024 Telephone [facility] Intake [address] [place] [address] Darrin Behavioral MD Yola /CD Inpatient 01/30/2024 Travel 01/30/2024 10:[address] 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 Emergency Dept [address] [place] [phone] India Boyd MD Andish, Kevan K, MD Quigley, Emily, JEWELLERY DESIGNER PHARMACY SALES REPRESENTATIVE Anxiety; Psychosis, unspecified psychosis type (H); Other insomnia Discharge Disposition: Home or Self Care 01/17/2024 Travel 01/12/2024 Orders Only [facility] [address] [place] [phone] Sarah Robles APRN PHARMACY SALES REPRESENTATIVE 01/12/2024 Orders Only [facility] [address] [place] [phone] Sarah Robles, LUIS PHARMACY SALES REPRESENTATIVE Acute paranoid reaction (H) (Primary Dx) 12/21/2023 Medical Correspondence [facility] [address] [place] [address] Scan, Non-Provider from Last 3 Months Allergies Active Allergy Reactions Criticality Noted Date [...] mg) by mouth daily 30 tablet 2 4 02/23/20 24 Discontinued(Sto p at Discharge) Active Problems [...] FAITH (obstructive sleep apnea) 03/24/2022 Overview: 03/21/2022 [facility] (410.0 lbs) - AHI 84.9, RDI 86.6, Supine AHI 103.6, REM AHI 76.3, Low O2 62.0%, Time Spent ?88% 143.1 minutes / Time Spent ?89% 188.1 minutes. Hypertension 03/12/2009 Morbid obesity 03/12/2009 Resolved Problems Problem Noted Date Diagnosed Date Resolved Date CARDIOVASCULAR SCREENING; LD L GOAL LESS THAN 160 06/20/2010 04/11/2023 Immunizations Name Administration Dates Next Due COVID-19 MONOVALENT 12+ (Pfizer) 12/11/2020,04/0 09/2020 COVID-19 Monovalent Booster 18+ (Moderna) 08/16/2021 Historical DTP/aP 04/12/1991, 9,02/12/1985,1984,1984 Influenza (IIV3) PF 05/30/2012 Influenza Vaccine >6 months,quad, PF 08/16/2021 Influenza Vaccine, 6+MO IM (QUADRIVALENT W/PRESERVATIVES) 08/16/2021,06/15/2020,05/13/2019,2017,05/29/2017,05/26/2015 Influenza,INJ,MDCK,PF,Quad >6mo(Flucelvax) 06/15/2020 MMR 09/25/1996,10/22/1985 Poliovirus, inactivated (IPV) 04/12/1991 ,12/05/1988,02/12/1985,1984 TD,PF 7+ (Tenivac) 05/21/2005,09/25/1996 TDAP (Adacel,Boostrix) 04/11/2023,06/06/2012 Social History Tobacco Use Types Packs/Day Years [...] How often do you attend chur or rastafari services? More than 4 times per year 04/04/2023 Do you belong to any clubs o r organizations such as adventism groups, unions, fraternal or athletic groups, or [...] Answer Date Recorded PHQ-2 Score 2 02/19/2024 [facility] - Occupational Stress Questionnaire Answer Date Recorded [...] place to sleep or slept in a custodial (including now)? No 04/04/2023 Adolescent Education Answer [...] Description 04/01/2024 2:[address] [facility] [address] [place] [phone] India Kimble MD [facility] [address] [place] [address] 04/01/2024 2:40 PM CDT Office Visit [facility] [place] [address] [place] [phone] India Kimble MD [facility] [address] [address] [place] [address] 04/09/2024 2:00 PM CDT Office Visit [facility] [address] [place] [phone] Valentin Muñoz MD [address] [facility] [place] [phone] Roro Acevedo, PA-C [address] [place] [address] 06/18/2024 12:00 PM CDT Virtual Visit [place] [phone] [place] [address] Josephine Krishnan PA-C [address] [place], [place] [phone] Procedures Procedure Name Priority Date/Time Associated Diagnosis [...] extracranial findings, as described. GRETA CAMPO MD Narrative 03/01/2024 5:26 PM CDT [...] DO LAB - BLOOD O RDERABLES LABORATORY [facility] [address] 1[address] floor, [address] [place] [address], [facility] [phone] * (ABNORMAL) Hemoglobin (02/22/2024 6:24 AM CDT) Only the most recent of3 resultswithin the time period is included. Hemoglobin 12.2(L) 13.3 - 17.7 g/dL 02/22/2024 7:04 AM CDT LABORATORY Blood STRUCTURE OF LEFT HAND / Unknown Venipuncture / Unknown 02/22/2024 6:24 AM CDT 02/22/2024 6:58 AM CDT Daiana Tai MD LAB - BLOOD ORDERABL ES LABORATORY [facility] [address] 1[address] floor, [address] [place] [address], [facility] [phone] * (ABNORMAL) Basic metabolic panel (02/22/2024 6:24 AM CDT) Only the most recent of3 resultswithin the time period is included. Pathologist [facility] Sodium 134(L) 135 - 145 mmol/L 02/22/2024 7:31 AM CDT LABORATORY Potassium 3.3(L) 3.4 - 5.3 mmol/L 02/22/2024 7:31 AM CDT LABORATORY Chloride 101 98 - 107 mmol/L 02/22/2024 7:31 AM CDT LABORATORY Carbon Dioxide (CO2) 25 22 - 29 mmol/L 02/22/2024 7:31 AM CDT LABORATORY Anion Gap 8 7 - 15 mmol/L 02/22/2024 7:31 AM CDT LABORATORY Urea Nitrogen 12.7 6.0 - 20.0 mg/dL 02/22/2024 7:31 AM CDT LABORATORY Creatinine 0.72 0.67 - 1.17 mg/dL 02/22/2024 7:31 AM CDT LABORATORY GFR Estimate >90 >60 mL/min/1.7 3m2 02/22/2024 7:31 AM CDT LABORATORY Comment:eGFR calculated 2020 CKD-EPI equation. Calcium 8.2(L) 8.6 - 10.0 mg/dL 02/22/2024 7:31 AM CDT LABORATORY Glucose 99 70 - 99 mg/dL 02/22/2024 7:31 AM CDT LABORATORY Blood STRUCTURE OF LEFT HAND / Unknown Venipuncture / Unknown 02/22/2024 6:24 AM CDT 02/22/2024 6:58 AM CDT Daiana Tai MD LAB - BLOOD ORDERABL ES LABORATORY [facility] [address] 1[address] floor, [address] [place] [address], [facility] [phone] * (ABNORMAL) Blood gas venous (02/21/2024 3:39 PM CDT) Only the most recent of2 resultswithin the time period is included. Pathologist [facility] pH Venous 7.45(H) 7.32 - 7.43 02/21/2024 [...] MD LAB - BLOOD ORDERABL ES LABORATORY [facility] [address] floor, [address] [place] [address], [facility] [phone] * (ABNORMAL) Glucose by meter (02/21/2024 7:35 AM CDT) Only the most recent of2 resultswithin the time period is included. GLUCOSE BY METER POCT 113(H) 70 - 99 mg/dL 02/21/2024 7:42 AM CDT LABORATORY POC Blood, Capillary BLOOD SPECIMEN / Unknown 02/21/2024 7:35 AM CDT 02/21/2024 7:42 AM CDT Joshua Whitehead MD LAB - BEAKER POCT LABORATORY POC [facility] [address] floor, [address] [address], [facility] * Heparin Unfractionated Anti Xa Level (02/21/2024 7:34 AM CDT) Only the most recent of5 resultswithin the time period is included. Anti Xa Unfractionated Heparin 0.38 For Reference [...] Whitehead MD LAB - BLOOD ORDERAB LES Performing Organization Address City/[facility]/ZIP Co de Phone Number LABORATORY [facility] [address] 1[address] floor, [address] [address], [facility] [phone] * IR Lower Extremity Venogram Right (02/20/2024 [...] popliteal vein. Over series of maneuvers, 6 Ivorian vascular sheath was placed. Berenstein catheter was placed in the popliteal vein, femoral vein, common femoral vein, common iliac vein, and IVC where venograms were performed. Catheter was then used to advance a super stiff Amplatz wire to the ipsilateral subclavian vein. 13 Ivorian sheath was then placed and 8 mm [...] popliteal vein. Over series of maneuvers, 6 Ivorian vascular sheath was placed. Berenstein catheter was placed in the popliteal vein, femoral vein, common femoral vein, common iliac vein, and IVC where venograms were performed. Catheter was then used to advance a super stiff Amplatz wire to the ipsilateral subclavian vein. 13 Ivorian sheath was then placed and 8 mm [...] days. INDIA KIMBLE MD Joshua Whitehead MD [facility] IR ORDERABLES * Activated clotting time celite, POCT (02/20/2024 5:11 PM CDT) [facility] Activated Clotting Time (Celite) POCT 140 74 - 150 seconds 02/20/2024 5:45 PM CDT LABORATORY POC Blood, venous BLOOD SPECIMEN / Unknown 02/20/2024 5:11 PM CDT 02/20/2024 5:45 PM CDT Joshua Whitehead MD [facility] POCT LABORATORY POC [facility] [address] floor, [address] [place] [address], [facility] * ECHO COMPLETE WITH CONTRAST (02/20/2024 12:45 PM CDT) [facility] LVEF 60% CARDIOLOGY RESULTS Anatomical Region Laterality Modality Echocardiography 02/20/2024 12:1 7 PM CDT Narrative 02/20/2024 12:56 PM CDT [id number]^ZAIRE^DAIANA [facility] Echocardiography Laboratory [address] [place] [address] Name: ANT FONTAINE : 1985 Study Date: 02/20/2024 12:17 PM Age: 38 yrs Gender: Male Patient Location: [facility] Reason For Study: SOB Ordering Physician: DAIANA TAI Referring Physician: Valentin Muñoz Performed By: Earnest Bellamy BSA: 2.8 m2 Height: 72 in Weight: 380 lb HR: 94 BP: 120/78 mmHg Procedure Complete Portable Echo Adult. Optison ([facility] #[id number]) given intravenously. Interpretation Summary 1. The left [...] Procedure Note Navin Giles MD - 02/20/2024 [id number]^ZAIRE^DAIANA [facility] Echocardiography Laboratory [address] [place] [address] Name: ANT FONTAINE : 1985 Study Date: 02/20/2024 12:17 PM Age: 38 yrs Gender: Male Patient Location: [facility] Reason For Study: SOB Ordering Physician: DAIANA TAI Referring Physician: Valentin Muoñz Performed By: Earnest Bellamy BSA: 2.8 m2 Height: 72 in Weight: 380 lb HR: 94 BP: 120/78 mmHg Procedure Complete Portable Echo Adult. Optison ([facility] #[id number]) givenintravenously. Interpretation Summary 1. The left ventricle [...] by: Shanel Farooq 02/20/2024 12:56 PM Daiana Tia MD CV ECHO ORDERABLES * (ABNORMAL) Troponin T, High Sensitivity (02/20/2024 5:33 AM CDT) Only the most recent of3 resultswithin the time period is included. [facility] Troponin T, High Sensitivity 41(H) <=22 ng/L [...] MD LAB - BLOOD ORDERABL ES LABORATORY [facility] [address] floor, [address] [address], [facility] [phone] * Magnesium (02/20/2024 5:33 AM CDT) Only the most recent of2 resultswithin the time period is included. Magnesium 2.2 1.7 - 2.3 mg/dL 02/20/2024 10:21 AM CDT LABORATORY Blood STRUCTURE OF RIGHT HAND / Unknown Venipuncture / Unknown 02/20/2024 5:33 AM CDT 02/20/2024 5:39 AM CDT Daiana Tai MD LAB - BLOOD ORDERABL ES Performing Organization Address City/[facility]/ZIP Co de Phone Number [facility] [address], [address] [address], [place] [phone] * (ABNORMAL) Comprehensive metabolic panel (02/20/2024 5:33 AM CDT) Only the most recent of3 resultswithin the time period is included. Sodium 135 135 - 145 mmol/L 02/20/2024 6:01 AM CDT LABORATORY Potassium 2.9(L) 3.4 - 5.3 mmol/L 02/20/2024 6:01 AM CDT LABORATORY Carbon Dioxide (CO2) 24 22 - 29 mmol/L 02/20/2024 6:01 AM [facility] Anion Gap 13 7 - 15 mmol/L 02/20/2024 6:01 AM [facility] Urea Nitrogen 20.6(H) 6.0 - 20.0 mg/dL 02/20/2024 6:01 AM [facility] Creatinine 0.84 0.67 - 1.17 mg/dL 02/20/2024 6:01 AM [facility] GFR Estimate >90 >60 mL/min/1. 73m2 02/20/2024 6:01 AM [facility] Comment:eGFR calculated usin 2020 CKD-EPI equation. Calcium 8.7 8.6 - 10.0 mg/dL 02/20/2024 6:01 AM [facility] Chloride 98 98 - 107 mmol/L 02/20/2024 6:01 AM [facility] Glucose 125(H) 70 - 99 mg/dL 02/20/2024 6:01 AM [facility] Alkaline Phosphatase 53 40 - 150 U/L 02/20/2024 6:01 AM [facility] AST 14 0 - 45 U/L 02/20/2024 6:01 AM [facility] Comment:Reference intervals for this test were updated on 01/30/2023 to more accurately reflect our healthy population. There may be differences in the flagging of prior results with similar values performed with this method. Interpretation of those prior results can be made in the context of the updated reference intervals. ALT 20 0 - 70 U/L 02/20/2024 6:01 AM [facility] Comment:Reference intervals for this test were updated on 01/30/2023 to more accurately reflect our healthy population. There may be differences in the flagging of prior results with similar values performed with this method. Interpretation of those prior results can be made in the context of the updated reference intervals. Protein Total 6.4 6.4 - 8.3 g/dL 02/20/2024 6:01 AM [facility] Albumin 3.5 3.5 - 5.2 g/dL 02/20/2024 6:01 AM [facility] Bilirubin Total 1.0 <=1.2 mg/dL 02/20/2024 6:01 AM [facility] Blood STRUCTURE OF RIGHT HAND / Unknown Venipuncture / Unknown 02/20/2024 5:33 AM CDT 02/20/2024 5:39 AM CDT Joshua Whitehead MD LAB - BLOOD ORDERAB LES LABORATORY [facility] [address], [address] [place] [address], [facility] [phone] * CBC with platelets (02/20/2024 5:33 AM CDT) Only the most recent of2 resultswithin the time period is included. [facility] Signature WBC Count 8.5 4.0 - 11.0 10e3/uL [...] MD LAB - BLOOD ORDERAB LES LABORATORY [facility] [address], [address] [place] [address], [facility] [phone] * IR Pulmonary Angiogram Bilateral (02/19/2024 9:06 [...] EDOUARD MD Narrative 02/19/2024 9:38 PM CDT [facility] LOCATION: [facility] DATE: 02/19/2024 PROCEDURE: 1. ??SELECTIVE AND SUPERSELECTIVE [...] sterile drape. Prior to the procedure, the automatic gluing machine operator and family medicine physician assistant performed hand hygiene and wore hat, [...] exchanged over the wire for a 4 Ivorian coaxial dilator. The inner 3 Ivorian dilator and 0.018 inch wire were then exchanged for a 0.035 inch guidewire. The outer 4 Ivorian dilator was then exchanged over the guidewire for a 6 Ivorian vascular sheath. ?? Utilizing preclose technique 2 Perclose suture devices were deployed at the right common femoral venous access site in standard fashion. The 6 Ivorian sheath was removed over a 0.035 inch Amplatz wire. Serial dilatation was performed to 20 Ivorian followed by a 24 Ivorian dry seal sheath. A 6 Ivorian Grollman-type catheter was advanced over a 0.035 [...] branch (greater than third order). A 24 Ivorian FlowTriever catheter was advanced into the main right pulmonary artery and primary percutaneous transluminal mechanical thrombectomy (extirpation of matter) was performed with removal of a moderate amount of thrombus from the main right and right lower and right upper lobe pulmonary arteries. Pressure measurement was obtained. The catheter was retracted in the main pulmonary artery. A 5 Ivorian KMP catheter, with the aid of a 0.035 inch angled Glidewire, was directed through the 24 Ivorian catheter and directed into the left pulmonary artery. Pressure measurements were obtained. A pulmonary arteriogram was obtained. Next the Amplatz wire was removed from the left pulmonary artery and advanced through the KMP catheter into the left pulmonary artery. Following this the KMP catheter was exchanged for the dilator of the 24 Ivorian catheter. This was advanced into the left pulmonary artery. The 24 Ivorian FlowTriever catheter was advanced into the main left pulmonary artery and primary percutaneous transluminal mechanical thrombectomy (extirpation of matter) was performed with removal of a moderate amount of thrombus from the left mid and left lower pulmonary arteries. A 20 Ivorian curved embolectomy catheter was advanced coaxially through the 24 Ivorian catheter and additional mechanical thrombectomy performed with [...] Procedure Note Nas Edouard MD - 02/19/2024 [facility] LOCATION: [facility] DATE: 02/19/2024 PROCEDURE: 1. SELECTIVE AND SUPERSELECTIVE [...] sterile drape. Prior to the procedure, the automatic gluing machine operator and family medicine physician assistant performed hand hygiene and wore hat, [...] exchanged over the wire for a 4 Ivorian coaxial dilator. The inner 3 Ivorian dilator and 0.018 inch wire were then exchanged for a 0.035 inch guidewire. The outer 4 Ivorian dilator was then exchanged over the guidewire for a 6 Ivorian vascular sheath. Utilizing preclose technique 2 Perclose suture devices were deployed at the right common femoral venous access site in standard fashion. The 6 Ivorian sheath was removed over a 0.035 inch Amplatz wire. Serial dilatation was performed to 20 Ivorian followed by a 24 Ivorian dry seal sheath. A 6 Ivorian Grollman-type catheter was advanced over a 0.035 [...] branch (greater than third order). A 24 Ivorian FlowTriever catheter was advanced into the main right pulmonary artery and primary percutaneous transluminal mechanical thrombectomy (extirpation of matter) was performed with removal of a moderate amount of thrombus from the main right and right lower and right upper lobe pulmonary arteries. Pressure measurement was obtained. The catheter was retracted in the main pulmonary artery. A 5 Ivorian KMP catheter, with the aid of a 0.035 inch angled Glidewire, was directed through the 24 Ivorian catheter and directed into the left pulmonary artery. Pressure measurements were obtained. A pulmonary arteriogram was obtained. Next the Amplatz wire was removed from the left pulmonary artery and advanced through the KMP catheter into the left pulmonary artery. Following this the KMP catheter was exchanged for the dilator of the 24 Ivorian catheter. This was advanced into the left pulmonary artery. The 24 Ivorian FlowTriever catheter was advanced into the main left pulmonary artery and primary percutaneous transluminal mechanical thrombectomy (extirpation of matter) was performed with removal of a moderate amount of thrombus from the left mid and left lower pulmonary arteries. A 20 Ivorian curved embolectomy catheter was advanced coaxially through the 24 Ivorian catheter and additional mechanical thrombectomy performed with [...] 13 NAS EDOUARD MD Nas Edouard MD G IR ORDERABLES * (ABNORMAL) CT Chest Pulmonary [...] CT CHEST PULMONARY EMBOLISM W CONTRAST LOCATION: [facility] DATE: 02/19/2024 INDICATION: known DVT, SOB COMPARISON: [...] CT CHEST PULMONARY EMBOLISM W CONTRAST LOCATION: [facility] DATE: 02/19/2024 INDICATION: known DVT, SOB COMPARISON: [...] MD LAB - BLOOD OR DERABLES LABORATORY [facility] [address] floor, [address] [place] [address], [facility] [phone] * (ABNORMAL) Nt probnp inpatient (BNP) (02/19/2024 3:55 PM CDT) [facility] N terminal Pro BNP Inpatient 1,998(H) 0 [...] MD LAB - BLOOD OR DERABLES LABORATORY [facility] [address] floor, [address] [address], [facility] [phone] * (ABNORMAL) D dimer quantitative (02/19/2024 3:55 PM CDT) [facility] D-Dimer Quantitative 6.32(H) 0.00 - 0.50 ug/mL [...] MD LAB - BLOOD OR DERABLES LABORATORY [facility] [address], [address], [place] [address], [place] [phone] * EKG 12-lead, tracing only (02/19/2024 3:43 PM CDT) Only the most recent of2 resultswithin the time period is included. Systolic Blood Pressure mmHg RADIOLOGY RESULTS Diastolic Blood Pressure mmHg RADIOLOGY RESULTS Ventricular Rate 111 BPM RAD IOLOGY RESULTS Atrial Rate 111 BPM RADIOLOG Y RESULTS FL Interval 150 ms RADIOLOG Y RESULTS QRS Duration 100 ms RADIOLO GY RESULTS QT 360 ms RADIOLOGY RESULTS QTc 489 ms RADIOLOGY RESULTS P [place] 38 degrees RADIOLOGY RESULTS R AXIS -21 degrees RADIOLOGY RESULTS T [place] -7 degrees RADIOLOGY RESULTS Interpretation ECG Sinus tachycardia T wave abnormality, consider anterior ischemia Abnormal ECG When compared with ECG of 17-JAN-2024 15:35, T wave inversion now evident in Anterior leads Confirmed by GENERATED REPORT, COMPUTER ([id number]), scientific publications editor Jeimy Hale ([id number]) on 02/19/2024 6:00:09 PM RADIOLOGY RESULTS 02/19/2024 [...] breath. GALI GILES DO Valentin Muñoz MD [facility] ORDERABLES * Asymptomatic COVID-19 Virus (Coronavirus) [...] the Xpert Xpress SARS-CoV-2 Assay on the [employer]. Additional information about this Emergency [...] COVID-19. This test was validated by the [facility]. This laboratory is certified under the Clinical Laboratory Improvement Amendments (CLIA) as qualified to perform high complexity laboratory testing. Rene Triplett MD LAB - MICRO GENERAL ORDERABLES LABORATORY [facility] [address], [address] [place] [address], [facility] [phone] * Urine Drug Screen Panel (01/30/2024 1:25 PM CDT) Only the most recent of2 resultswithin the time period is included. [facility] Amphetamines Urine Screen Negative Screen Negative 01/30/2024 [...] MD LAB - URINE ORDERABL ES LABORATORY [facility] [address] 1st floor, [address] [address], [facility] [phone] * Extra Red Top Tube (01/30/2024 1:24 PM CDT) Hold Specimen [facility] 01/30/2024 2:32 PM CDT LABORATORY Blood STRUCTURE OF RIGHT UPPER LIMB / Unknown Venipuncture / Unknown 01/30/2024 1:24 PM CDT 01/30/2024 1:28 PM CDT Mark Vidales MD LAB - BLOOD ORDERABL ES LABORATORY [facility] [address] 1[address] floor, [address] [place] [address], [facility] [phone] * Extra Blue Top Tube (01/30/2024 1:24 PM CDT) Hold Specimen [facility] 01/30/2024 2:32 PM CDT LABORATORY Blood STRUCTURE OF RIGHT UPPER LIMB / Unknown Venipuncture / Unknown 01/30/2024 1:24 PM CDT 01/30/2024 1:28 PM CDT Mark Vidales MD LAB - BLOOD ORDERABL ES LABORATORY [facility] [address] 1[address] floor, [address] [place] [address], [facility] [phone] * TSH with free T4 reflex (01/30/2024 10:21 AM CDT) TSH 1.43 0.30 - 4.20 uIU/mL 01/30/2024 8:09 PM CDT [facility] Blood BLOOD SPECIMEN / Unknown Venipuncture / Unknown 01/30/2024 10:21 AM CDT 01/30/2024 10:21 AM CDT Sarah Robles APRN, CNP LAB - BLOOD OR DERABLES [facility] LABORATORY [facility] [place] [facility] [address], [address] [place] [address], [facility] * Lipid panel reflex to direct LDL [...] APRN, CNP LAB - BLOOD OR DERABLES U LABORATORY [facility] [place] [facility] [address], [address] [place] [address] * (ABNORMAL) Hemoglobin A1c (01/30/2024 10:21 AM CDT) Hemoglobin A1C 5.9(H) 0.0 - 5.6 % 01/30/2024 10:28 AM CDT LABORATORY Comment: Normal <5.7% Prediabetes 5.7-6.4% ?? Diabetes 6.5% or higher Note: Adopted from ADA consensus guidelines. Blood BLOOD SPECIMEN / Unknown Venipuncture / Unknown 01/30/2024 10:21 AM CDT 01/30/2024 10:21 AM CDT Sarah Robles APRN, CNP LAB - BLOOD OR DERABLES LABORATORY [facility] [place] [facility] [address] [facility] (no room number, 1st floor of clinic) [place] [address], [facility] * (ABNORMAL) Glucose (01/30/2024 10:21 AM CDT) Glucose 109(H) 70 - 99 mg/dL 01/30/2024 8:09 PM CDT [facility] LABORATORY Patient Fasting > 8hrs? Yes 01/30/2024 8:09 PM CDT [facility] LABORATORY Blood BLOOD SPECIMEN / Unknown Venipuncture / Unknown 01/30/2024 10:21 AM CDT 01/30/2024 10:21 AM CDT Sarah Robles APRN, CNP LAB - BLOOD OR DERABLES U LABORATORY [facility] [place] [facility] [address], [address] [place] [address], [facility] * Lactic acid whole blood with 1x repeat in 2 hr when >2 (01/17/2024 3:36 PM CDT) Lactic Acid, Initial 1.5 0.7 - 2.0 mmol/L 01/17/2024 3:48 PM CDT LABORATORY Blood STRUCTURE OF RIGHT HAND / Unknown Venipuncture / Unknown 01/17/2024 3:36 PM CDT 01/17/2024 3:42 PM CDT India Boyd MD LAB - BLOOD GILSON MARTINEZ LABORATORY [facility] [address] floor, [address] [place] [address], [facility] [phone] from Last 3 Months Advance Directives For more information, please contact: [phone] * Full Code (Latest Code Status on File) Date Activated Date Inactivated Comments 02/19/2024 9:52 PM 02/23/2024 6:57 PM All basic and advanced life-sustaining interventions are performed as appropriate Question Answer Comments Code status determined by: Discussion with patie nt/ legal decision maker Care Teams Marketing And Development Coordinator Relationship Specialty Start Date End Date Valentin Muñoz MD [address] [place] [address] [place] [id number] PCP - General Internal Medicine 10/08/10 Valentin Muñoz MD [address] [place] [address] [place] [id number] Assigned PCP 10/03/16
--- OUTSIDE RECORDS SUMMARY | 2024-03-09 10:49 | XMS_ITS | Encounter Summary ---
Author Organization [facility] Address [address] [place] [address]. [place] [address] Care Team Providers Care Adobe Developer Name Role Phone Valentin Muñoz MD Primary Care Provider [phone] Valentin Muñoz MD Unavailable [phone] Reason for Referral * Consultation (Routine: Next available opening) - Pending Review Specialty Diagnoses / Procedures Referred By Jazzy arndt Referred To Contact Medical Oncology Diagnoses Acute deep vein thrombosis (DVT) of iliac vein of right lower extremity (H) Acute saddle pulmonary embolism with acute cor pulmonale (H) Valentin Muñoz MD [address] [place] [id number] Referral ID Status Reason Start Date Expiration Date V isits Requested Visits Authorized [id number] Pending Review 02/28/2024 02/27/2025 1 1 Question Answer My Clinical Question Is: Extensive right leg DVT with saddle PE. Question what if any additional evaluation is needed and duration of anticoagulation. If you have additional clinical questions which require a provider discussion, please call [phone]. Ask for the Chemo only medicine physician. Reason for Referral: Bleeding and Clotting Scheduling Instructions: [employer] [facility] will call you to coordinate your care as prescribed by the provider. If you don? t hear from a national account representative within 2 business days, please call Comments Please be aware that coverage of these services is subject to the terms and limitations of your health insurance plan. Call member services at your health plan with any benefit or coverage questions. [employer] [facility] will call you to coordinate your care as prescribed by the provider. If you don? t hear from a national account representative within 2 business days, please call Reason for Visit * Reason Comments Hospital F/U Encounter Details Date Type Department Care Team (Late st Contact Info) Description 02/28/2024 4:00 PM CDT Office Visit [facility] [place] [address] [place] [address] Valentin Muñoz MD [address] [place] [address] [place] [address] Acute deep vein thrombosis (DVT) of iliac vein of right lower extremity (H) (Primary Dx); Acute saddle pulmonary embolism with acute cor pulmonale (H); 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) Social History Tobacco Use Types Packs/Day Years [...] How often do you attend chur or mandaeism services? More than 4 times per year 04/04/2023 Do you belong to any clubs o r organizations such as anglican groups, unions, fraternal or athletic groups, or [...] Answer Date Recorded PHQ-2 Score 2 02/19/2024 [facility] - Occupational Stress Questionnaire Answer Date [...] place to sleep or slept in a care home (including now)? No 04/04/2023 Adolescent Education Answer Date Record ed Getting School Help Needed Not on file 06/02 Sex and Gender Information Value Date Recorded Sex Assigned at Not on file Gender Identity Not on file Sexual Orientation Not on file documented as of this encounter Last Filed Vital Signs Vital Sign Reading [...] Mass Index 50.49 02/28/2024 3:43 PM CDT documented in this encounter Patient Instructions * Patient Instructions* Valentin Muñoz MD - 02/28/2024 4:00 PM CDT Cut your Amlodipine tablets in 1/2 New dose is 5 mg once daily Check your blood pressure prior to taking amlodipine If your systolic (Top) number is <110, skip amlodipine that day If the systolic is 180 or higher please contact me Likely would increase back to a full amlodipine tablet that day documented in this encounter Progress Notes * Valentin Muñoz MD - 02/28/2024 4:00 PM CDT Assessment & Plan ICD-10-CM 1. Acute deep vein thrombosis (DVT) of iliac vein of right lower extremity (H) I82.421 rivaroxaban ANTICOAGULANT (XARELTO) 20 MG TABS tablet Adult Oncology/Hematology Summer Child Caregiver Referral 2. Acute saddle pulmonary embolism with acute cor pulmonale (H) I26.02 rivaroxaban ANTICOAGULANT (XARELTO) 20 MG TABS tablet Adult Oncology/Hematology Summer Child Caregiver Referral 3. 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 S/p thrombectomy in the lungs and RLE. Currently taking Xarelto 15 mg BID with plan to transition to 20 mg daily. Next rx for Xarelto 20 mg daily was sent to his pharmacy. Recommend hematology consultation. Referral signed. Depression. Outpatient intensive therapy scheduled for next week. MED REC REQUIRED Post Medication Reconciliation Status: Discharge medications reconciled and changed, see notes/orders Valentin Muñoz MD Bassam Cain is a 38 year old, presenting for the following health issues: Hospital F/U 02/28/2024 3:37 PM Additional Questions Roomed by Chloe Accompanied by none 02/28/2024 3:37 PM Patient Reported Additional Medications Patient reports taking the following new medications none HPI Hospital Follow-up Visit: Hospital/Fci/IP Rehab Facility: [facility] Date of Admission: 02/19/24 Date of Discharge: 02/23/24 Reason(s) for Admission: DVT, pulmonary emboli Was the patient in the ICU or did the patient experience delirium during hospitalization? No Do you have any other stressors you would like to discuss with your provider? No Problems taking medications regularly: None Medication changes since discharge: blood thinner Problems adhering to non-medication therapy: None Summary of hospitalization: [facility] discharge summary reviewed Diagnostic Tests/Treatments reviewed. Follow up needed: none Other Healthcare Providers Involved in Patient???s Care: Specialist appointment - scheduled for outpatient intensive mental health starting next week. Hematology consultation recommended. Update since discharge: improved. Plan of care communicated with patient Pk is here with his today for follow-up from his recent hospitalization. He was here in clinic 02/18, noted significant RLE Pain. Referred for US. Showed extensive thrombus RLE. Directed to the ED. PE, including saddle. Underwent thrombectomy within the lungs, then right leg the following day. Started Xarelto. Today, no significant shortness of breath or chest pains. RLE pain is significantly improved. Still has edema. Current Xarelto dosing is 15 mg BID. He was not referred to hematology. Discussed benefits of an evaluation d/t the severity of his clotburden. Mental health is slightly improved compared to last week. Still remains depressed. Fatigued. Was evaluated last week, is enrolling in intensive outpatient treatment starting next week. We reviewed his current mental health medications. Objective BP 94/67 (BP Location: Right arm, Patient Position: Sitting, Cuff Size: Adult Large) Pulse 106 Temp 97.6 ??F (36.4 ??C) (Tympanic) Resp 24 Ht 1.829 m (6') Wt (!) 168.9 kg (372 lb 4.8 oz) SpO2 96% BMI 50.49 kg/m?? Body mass index is 50.49 kg/m??. Physical Exam GEN: No acute distress SKIN: stasis dermatitis BLE NECK: Supple. No LAD or TM. LUNGS: Clear to auscultation bilaterally. No rhonchi, rales, wheezes or retractions. CV: Regular rate and rhythm. No murmurs, rubs or gallops. Pulses 2+ radial. ABD: BS+. S, ND. EXTR: Bakari LE edema PSYCH: flat affect. Poor eye contact. Signed Electronically by: Valentin Muñoz MD documented in this encounter Plan of Treatment Upcoming Encounters Date Type Department Care Team (Late st Contact Info) Description 04/01/2024 2:00 PM CDT Appointment [facility] [address] [place] [phone] Omero Pham [facility] [address] [place] [address] 04/01/2024 2:40 PM CDT Office Visit [facility] [place] [address] [place] [phone] Omero Pham MD [facility] [address] [place] [address] 04/09/2024 2:00 PM CDT Office Visit [facility] [address] [place] [phone] Valentin Muñoz MD [address] [place] [address] Roro Acevedo PA-C [address] [place] [address] 06/18/2024 12:00 PM CDT Virtual Visit [facility] [address] [place] [phone] Josephine Krishnan PA-C [address] [facility] [address] [place], [place] [phone] Scheduled Referrals Name Type Priority Associated Diagnoses Orde r Schedule Adult Oncology/Hematology Summer Child Caregiver Referral Referral Routine: Next available opening Acute deep vein thrombosis (DVT) of iliac vein of right lower extremity (H) Acute saddle pulmonary embolism with acute cor pulmonale (H) Expected: 02/28/2024 (Approximate), Expires: 02/27/2025 documented as of this encounter Visit Diagnoses Diagnosis Acute deep vein thrombosis (DVT) of iliac vein of right lower extremity (H)- Primary Acute saddle pulmonary embolism with acute cor pulmonale (H) 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) Major depressive disorder, recurrent episode, severe, without mention of psychotic behavior documented in this encounter Additional Health Concerns Assessment Noted Time PHQ-9 Depression Total Score: 24 024 11:07 AM CDT documented as of this encounter Care Teams Adobe Developer Relationship Specialty Start Date End Date Valentin Muñoz MD [address] [place] [address] [place] [address] PCP - General Internal Medicine 10/08/10 Valentin Muñoz MD [address] [place] [address] [place] [address] Assigned PCP 10/03/16 documented as of this encounter
--- OUTSIDE RECORDS SUMMARY | 2024-03-09 10:49 | XMS_ITS | Encounter Summary ---
Author Organization [facility] Address [address] [place] [address]. [place] [address] Care Team Providers Care Bundle Tier And Labeler Name Role Phone Valentin Muñoz MD Primary Care Provider [phone] Valentin Muñoz MD Unavailable Reason for Visit * Reason Onset Date Comments sleep eval 02/28/2024 Encounter Details Date Type Department Care Team (Late st Contact Info) Description 02/28/2024 Telephone [facility] [place] [address] [address] Josephine Krishnan PA-C [address] [address] sleep eval Social History Tobacco Use Types Packs/Day Years [...] 04/04/2023 How often do you attend chur ch or orthodoxy services? More than 4 times per year 04/04/2023 Do you belong to any clubs o r organizations such as christian groups, unions, fraternal or athletic groups, or [...] Answer Date Recorded PHQ-2 Score 2 02/19/2024 [facility] - Occupational Stress [...] place to sleep or slept in a group home (including now)? No 04/04/2023 Adolescent Education Answer Date Record ed Getting School Help Needed Not on file 06/02 Sex and Gender Information Value Date Recorded Sex Assigned at Not on file Gender Identity Not on file Sexual Orientation Not on file documented as of this encounter Miscellaneous Notes * Telephone Encounter - Lona Burden RN - 02/28/2024 2:45 PM CDT Message sent to scheduling * Telephone Encounter - Eboni Carreon - 02/28/2024 1:34 PM CDT Reason for Call: Appointment Request Patient requesting this type of appt: sleep eval Requested provider: millie Reason patient unable to be scheduled: Not within requested timeframe When does patient want to be seen/preferred time: joesph Comments: sleep eval Could we send this information to you in [facility] [place] or would you prefer to receive a phone call?: Patient would prefer a phone call Okay to leave a detailed message?: Yes at Cell number on file: Telephone Information: Call taken on 02/28/2024 at 1:35 PM by Eboni Carreon documented in this encounter Plan of Treatment Upcoming Encounters Date Type Department Care Team (Late st Contact Info) Description 04/01/2024 2:00 PM CDT Appointment [facility] [address] [place] [phone] Omero Pham [facility] [address] [place] [address] 04/01/2024 2:40 PM CDT Office Visit [facility] [place] [address] [place] [phone] Omero Pham [facility] [address] [place] [address] 04/09/2024 2:00 PM CDT Office Visit [facility] [address] [place] [phone] Valentin Muñoz MD [address] [place] [address] [place] [address] Roro Acevedo PAMickie [address] [place], [place] [address] 06/18/2024 12:00 PM CDT Virtual Visit [facility] [place] [address] [place] [phone] Josephine Krishnan PA-C [address] [place] [phone] documented as of this encounter Visit Diagnoses Not on filedocumented in this encounter Additional Health Concerns Assessment Noted Time PHQ-9 Depression Total Score: 24 024 11:07 AM CDT documented as of this encounter Care Teams Bundle Tier And Labeler Relationship Specialty Start Date End Date Valentin Muñoz MD [address] [place] [address] [place] [address] PCP - General Internal Medicine 10/08/10 Valentin Muñoz MD [address] [place] [address] [place] [address] Assigned PCP 10/03/16 documented as of this encounter
--- OUTSIDE RECORDS SUMMARY | 2024-03-09 10:49 | XMS_ITS | Encounter Summary ---
Author Organization [place] Address [address] [place] [address] Care Team Providers Care French Cord Binder Name Role Phone Valentin Muñoz MD Primary Care Provider [phone] Valentin Muñoz MD Unavailable [phone] Reason for Referral * Diagnostic Imaging CT Scan (Routine) - Closed Specialty Diagnoses / Procedures Referred By Contac t Referred To Contact Radiology. Diagnoses 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) Procedures CT Head w/o Contrast Valentin Muñoz MD [address] [place] [address] [place] [address] [place] [id number] Referral ID Status Reason Start Date Expiration Date Visits Re quested Visits Authorized [id number] Closed 02/19/2024 02/18/2025 1 1 Reason for Visit * Diagnostic Imaging CT Scan (Routine) - Closed Specialty Diagnoses / Procedures Referred By Contac t Referred To Contact Radiology. Diagnoses 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) Procedures CT Head w/o Contrast Valentin Muñoz MD [address] [place] [address] [place] [address] [place] [id number] Referral ID Status Reason Start Date Expiration Date Visits Re quested Visits Authorized [id number] Closed 02/19/2024 02/18/2025 1 1 Encounter Details Date Type Department Care Team (Latest Contact Info) Description 02/29/2024 4:02 PM CDT - 02/29/2024 11:59 PM CDT Hospital Encounter [facility] Imaging [address] [place] [phone] Valentin Muñoz MD [address] [facility] [place] [address] 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) Discharge Disposition: Home or Self Care Social History Tobacco Use Types Packs/Day Years [...] How often do you attend chur or uatsdin services? More than 4 times per year 04/04/2023 Do you belong to any clubs o r organizations such as caodaism groups, unions, fraternal or athletic groups, or [...] Answer Date Recorded PHQ-2 Score 2 02/19/2024 [facility] - Occupational Stress Questionnaire Answer Date Recorded [...] on file documented as of this encounter Medications at Time of Discharge Medication Sig Dispensed Refills Start Date End Date acetaminophen (TYLENOL) 325 MG tabletIndications:Acute saddle pulmonary embolism with acute cor pulmonale (H) Take 2 tablets (650 mg) by mouth every 4 hours as needed for mild pain or other (and adjunct with moderate or severe pain or per patient request) 02/22/2024 amLODIPine (NORVASC) 10 MG tabletIndications:Essent ial hypertension Take 1 tablet (10 mg) by mouth daily HOLD IF SBP <130 90 tablet 3 02/23/2024 FLUoxetine (PROZAC) 40 MG capsule Take 40 mg by mouth daily 02/07/2024 gabapentin (NEURONTIN) 600 MG tabletIndications:CAROLE (generalized anxiety disorder) Take 2 tablets (1,200 mg) by mouth at bedtime 30 tablet 2 02/23/2024 hydrOXYzine (VISTARIL) 50 MG capsule Take 50 mg by mouth 3 times daily as needed for anxiety 02/06/2024 LORazepam (ATIVAN) 1 MG tablet Take 1 mg by mouth daily as needed for anxiety risperiDONE (RISPERDAL) 2 MG tablet Take 1 tablet by mouth at bedtime 02/06/2024 rivaroxaban ANTICOAGULANT (XARELTO) 2.5 MG TABS tabletIndications:DVT-PE Treatment Take 6 tablets (15 mg) by mouth 2 times daily (with meals) for 19 days, THEN 8 tablets (20 mg) daily (with dinner) for 30 days. 468 tablet 02/22/2024 04/11/2024 rivaroxaban ANTICOAGULANT (XARELTO) 20 MG TABS tabletIndications:Acute deep vein thrombosis (DVT) of iliac vein of right lower extremity (H),Acute saddle pulmonary embolism with acute cor pulmonale (H) Take 1 tablet (20 mg) by mouth daily (with dinner) 90 tablet 02/28/2024 traZODone (DESYREL) 100 MG tablet Take 100 mg by mouth at bedtime 02/06/2024 documented as of this encounter Plan of Treatment Upcoming Encounters Date Type Department Care Team (Late st Contact Info) Description 04/01/2024 2:00 PM CDT Appointment [facility] [address] [place] [phone] Omero Pham MD [facility] RADIOLOGIC CONS [address] [place] [address] 04/01/2024 2:40 PM CDT Office Visit [facility] [place] [address] [place] [phone] Omero Pham MD [facility] RADIOLOGIC CONS [address] [place] [address] 04/09/2024 2:00 PM CDT Office Visit [facility] [address] [place] [phone] Valentin Muñoz MD [address] [facility] [address] [place], [place] [phone] Roro Acevedo PA-C [address] [place], [place] [phone] 06/18/2024 12:00 PM CDT Virtual Visit [facility] [place] [address] [place] [phone] Josephine Krishnan PA-C [address] [place], [place] [address] documented as of this encounter Procedures Procedure Name Priority Date/Time Associated Diagnosis Comments CT HEAD W/O CONTRAST Routine 02/29/2024 4:23 PM CDT 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) documented in this encounter Results * CT Head w/o Contrast (02/29/2024 4:23 PM CDT) Anatomical Region Laterality Modality Head, SUBRAD CT NEURO, SUBRA D CT NEURO, UMP CT NEURO, RAD CT Computed Tomography Impressions 03/01/2024 5:26 PM CDT IMPRESSION: 1. No CT findings of acute intracranial process. 2. Incidental extracranial findings, as described. GRETA MOORE MD Narrative 03/01/2024 5:[address] [...] sebaceous cyst/epidermal inclusion cyst. Procedure Note Greta Moore MD - 03/01/2024 CT SCAN OF THE [...] 2. Incidental extracranial findings, as described. GRETA MOORE MD Valentin Muñoz MD IMG CT ORDERABLES documented in this encounter Visit Diagnoses Diagnosis 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) Major depressive disorder, recurrent episode, severe, without mention of psychotic behavior documented in this encounter Additional Health Concerns Assessment Noted Time PHQ-9 Depression Total Score: 24 024 11:07 AM CDT documented as of this encounter Care Teams French Cord Binder Relationship Specialty Start Date End Date Valentin Muñoz MD [address] [place] [address] [place] [address] PCP - General Internal Medicine 10/08/10 Valentin Muñoz MD [address] [place] [address] [place] [address] Assigned PCP 10/03/16 documented as of this encounter
--- OUTSIDE RECORDS SUMMARY | 2024-03-09 10:49 | XMS_ITS | Encounter Summary ---
Author Organization [place] Address [address] [place] [address]. [place] [address] Care Team Providers Care Assistant Professor Sculpture Name Role Phone Valentin Muñoz MD Primary Care Provider [phone] Valentin Muñoz MD Unavailable Reason for Referral * Diagnostic Imaging Ultrasound (Routine) - Pending Review Specialty Diagnoses / Procedures Referred By Contac t Referred To Contact Radiology. Diagnoses Acute deep vein thrombosis (DVT) of iliac vein of right lower extremity (H) Procedures US Lower Extremity Venous Duplex Right Omero Pham MD [facility]S [address] [facility] [address] [place] [address] Referral ID Status Reason Start Date Expiration Date V isits Requested Visits Authorized [id number] Pending Review 03/04/2024 03/04/2025 1 1 Encounter Details Date Type Department Care Team (Late st Contact Info) Description 03/04/2024 Orders Only [facility] [place] [address] [place] [phone] Minerva Campbell swimming instructor deep vein thrombosis (DVT) of iliac vein of right lower extremity (H) (Primary Dx) Social History Tobacco Use Types Packs/Day Years [...] How often do you attend chur or temple services? More than 4 times per year 04/04/2023 Do you belong to any clubs o r organizations such as synagogue groups, unions, fraternal or athletic groups, or [...] Answer Date Recorded PHQ-2 Score 2 02/19/2024 [facility] - Occupational Stress Questionnaire Answer Date [...] place to sleep or slept in a skilled nursing (including now)? No 04/04/2023 Adolescent Education Answer [...] Info) Description 04/01/2024 2:00 PM CDT Appointment [facility] [address] [place] [phone] Omero Pham MD [facility] [address] [place], [place] [address] 04/01/2024 2:40 PM CDT Office Visit [facility] [place] [address] [place] [phone] Omero Pham MD [facility] [address] [place], [place] [phone] 04/09/2024 2:00 PM CDT Office Visit [facility] [address] [place] [address] Valentin Muñoz MD [address] [place] [address] [place] [address] Roro Acevedo, PAShannaC [address] [place], [place] [address] 06/18/2024 12:00 PM CDT Virtual Visit [facility] [address] [place] [phone] Josephine Krishnan PA-C [address] [place], [place] [address] Scheduled Orders Name Type Priority Associated Diagnoses Orde r Schedule US Lower Extremity Venous Duplex Right Imaging Routine Acute deep vein thrombosis (DVT) of iliac vein of right lower extremity (H) Expected: 03/22/2024 (Approximate), Expires: 03/04/2025 documented as of this encounter Visit Diagnoses Diagnosis Acute deep vein thrombosis (DVT) of iliac vein of right lower extremity (H)- Primary documented in this encounter Additional Health Concerns Assessment Noted Time PHQ-9 Depression Total Score: 24 024 11:07 AM CDT documented as of this encounter Care Teams Assistant Professor Sculpture Relationship Specialty Start Date End Date Valentin Muñoz MD [address] [place] [address] [place] [address] PCP - General Internal Medicine 10/08/10 Valentin Muñoz MD [address] [place] [address] [place] [address] Assigned PCP 10/03/16 documented as of this encounter
--- OUTSIDE RECORDS SUMMARY | 2024-03-09 10:50 | XMS_ITS | Encounter Summary ---
Author Organization [place] Address [address] [place] [address] Care Team Providers Care Cardiopulmonary Technician Name Role Phone Valentin Muñoz MD Primary Care Provider Valentin Muñoz MD Unavailable [phone] Reason for Visit * Reason Onset Date Comments MH/CD Inpatient 02/01/2024 Encounter Details Date Type Department Care Team ([facility] st Contact Info) Description 02/01/2024 Telephone [facility] Behavioral Health Intake [address] [place] [phone] Generic, Behavioral Intake, MD MH/CD Inpatient Social History Tobacco Use Types Packs/Day Years Used Date Smoking Tobacco: Never Smokeless Tobacco: Never Alcohol Use Standard [...] often do you attend chur ch or jainism services? More than 4 times per year 04/04/2023 Do you belong to any clubs o r organizations such as roman catholic groups, unions, fraternal or athletic groups, or [...] 04/04/2023 PHQ-2 Answer Date Recorded PHQ-2 Score 4 01/24/2024 [facility] - Occupational Stress Questionnaire Answer Date [...] place to sleep or slept in a fpc (including now)? No 04/04/2023 Adolescent Education Answer Date Record ed Getting School Help Needed Not on file 06/02 Sex and Gender Information Value Date Recorded Sex Assigned at Not on file Gender Identity Not on file Sexual Orientation Not on file documented as of this encounter Miscellaneous Notes * Telephone Encounter - Swapna George - 02/01/2024 10:01 PM CDT 10:01 PM Rodrigo Isbell called intake accepting pt - BUMPER MACHINE OPERATOR Didier Bailey , RN to RN # [phone] 10:12 PM Intake called Freda spoke with YOLIS Winslow with bed placement information. * Telephone Encounter - Kamar Olmstead - 02/01/2024 6:12 PM CDT R: [facility] Access Inpatient Bed Call Log 02/01/2024 6:45PM Intake has called facilities that have not updated their bed status within the last 12 hours.?? Pt wants metro only. ADULTS: *METRO [place] -- [facility]: @ cap per website. [place] -- [facility]: @ Posting 16 beds. [phone], 6:55pm-Hipolito reports to call back tomorrow morning. [place] -- [facility]: @ Reviewing at 7:13pm. 7:48pm- [facility] news writer faxed clinicals for review. Pending response. [place] -- [facility]: @ Posting 1 bed. Negative COVID required. No high Acuity. [phone] -do not have bariatric beds. [place] -- [facility]: @ Cap per website. [facility] -- [facility]: @ Posting 6 beds. Call [phone]. [place]- they are at capacity. [facility]/ beds Ages 18-28, @ posting 2 beds. Voluntary only, COVID test req'd, No aggression, physical or sexual assault, violence hx or drug abuse, or psychosis. [place] -- [facility]: @ Cap per website. [place] -- [facility]: @ cap per website. [place] -- [facility]: @ Posting 1 bed. Low acuity. [phone] Pt remains on waitlist pending appropriate bed availability. 7:48pm- pending [facility] review. * Telephone Encounter - Natalie Knapp - 02/01/2024 8:52 AM CDT R: [facility] Inpatient Bed Call Log 02/01/2024 @7:06 am: (metro): Intake has called facilities that have not updated the bed status within the last 12 hours. [facility] is at capacity. [facility] is posting 16 beds. [phone] ; per call at 7:06 am to Gabriel, patients need to go through [facility]. [facility] is an extension of their ED and we would not transfer a pt to their ED. [facility] is posting 0 beds. Negative covid [facility] is posting 1 bed. Neg covid. No high school/Kiesha-psych. [phone]; declined due to medical acuity on 01/31/24. [place] is posting 0 beds. [phone] [facility] is posting 0 beds. [phone] [facility] is posting 0 Young Adult beds. Ages 18-28. Negative covid. [phone]; per call at 7:08 am to Sally, they have 1 y/a beds avail. Pt is outside the accepted age range. [facility] is posting 0 beds. [phone] [facility] is posting 1 bed. [phone]; per call at 9:45 am to Floridalma, they are at cap but we can call back later today to check their availability. Called #20 at 12:25 pm and left a message asking for CRN to call back. Per #20 Daina SY at 12:35 pm, they can not do room changes to open a bariatric room. Pt remains on the work list pending appropriate bed availability. documented in this encounter Plan of Treatment Upcoming Encounters Date Type Department Care Team (Late st Contact Info) Description 04/01/2024 2:00 PM CDT Appointment [facility] [address] [place] [phone] Omero Pham MD [facility] [address] [place] [address] 04/01/2024 2:40 PM CDT Office Visit [facility] [place] [address] [place] [phone] Omero Pham MD [facility] [address] [place] [address] 04/09/2024 2:00 PM CDT Office Visit [facility] [address] [place] [phone] Valentin Muñoz MD [address] [facility] [address] [place] [phone] Roro Acevedo PA-C [address] [place], [place] [address] 06/18/2024 12:00 PM CDT Virtual Visit [facility] [place] [address] [place] [phone] Josephine Krishnan PA-C [address] [place], [place] [phone] documented as of this encounter Visit Diagnoses Not on filedocumented in this encounter Additional Health Concerns Assessment Noted Time PHQ-9 Depression Total Score: 24 024 11:07 AM CDT documented as of this encounter Care Teams Cardiopulmonary Technician Relationship Specialty Start Date End Date Valentin Muñoz MD [address] [facility] [place] [address] PCP - General Internal Medicine 10/08/10 Valentin Muñoz MD [address] [facility] [place] [address] Assigned PCP 10/03/16 documented as of this encounter
--- OUTSIDE RECORDS SUMMARY | 2024-03-09 10:50 | XMS_ITS | Encounter Summary ---
Author Organization [facility] Address [address] [place] [address]. [place] [address] Care Team Providers Care Machine Burrer Name Role Phone Valentin Muñoz MD Primary Care Provider [phone] Valentin Muñoz MD Unavailable [phone] Reason for Referral * Care Coordination (Routine: Next available opening) - Pending Review Specialty Diagnoses / Procedures Referred By Contac t Referred To Contact Diagnoses Acute saddle pulmonary embolism with acute cor pulmonale (H) Daiana Tai MD [address] [address] Referral ID Status Reason Start Date Expiration Date V isits Requested Visits Authorized [id number] Pending Review 02/21/2024 02/20/2025 1 1 Question Answer Reason for Referral: Care Transition Transition: Inpatient to outpatient Clinical Staff have discussed the Care Coordination Referral with the patient and/or caregiver: No Comments Reason for Visit * Reason Comments Shortness of Breath Leg Pain * Auth/Cert Specialty Diagnoses / Procedures Referred By Contac t Referred To Contact EMERGENCY MEDICINE Diagnoses Acute deep vein thrombosis (DVT) of iliac vein of right lower extremity (H) Acute saddle pulmonary embolism with acute cor pulmonale (H) Emergency Dept [address] [place] [id number] Referral ID Status Reason Start Date Expiration Date Visits Re quested Visits Authorized [id number] 1 1 Encounter Details Date Type Department Care Team (Late st Contact Info) Description 02/19/2024 3:32 PM CDT - 02/23/2024 4:20 PM CDT Hospital Encounter [facility] [address] [phone] Trigger, Fco Maddox MD [facility] [address] [place] [address] [place] [id number] Joshua Whitehead MD [address] [id number] Hypertension (Primary Dx); Acute deep vein thrombosis (DVT) of iliac vein of right lower extremity (H); Acute saddle pulmonary embolism with acute cor pulmonale (H); Essential hypertension; CAROLE (generalized anxiety disorder) Discharge Disposition: Home or Self Care Social [...] week 04/04/2023 How often do you attend [facility] or restoration services? More than 4 times per year 04/04/2023 Do you belong to any clubs o r organizations such as religion groups, unions, fraternal or athletic groups, or [...] Answer Date Recorded PHQ-2 Score 2 02/19/2024 [facility] - Occupational Stress Questionnaire Answer [...] Sign Reading Time Taken Comments Blood Pressure 139/83 02/23/2024 11:04 AM CDT Pulse 93 02/23/2024 11:04 AM CDT Temperature 36.8 ??C (98.2 ??F) 02/23/2024 11:04 AM C DT Respiratory Rate 18 02/23/2024 11:04 AM CDT Oxygen Saturation 95% 02/23/2024 11:04 AM CDT Inhaled Oxygen Concentration - - Weight - - Height - - Body Mass Index - - documented in this encounter Discharge Summaries * Twan Olmstead MD - 02/23/2024 4:22 PM CDT [facility] Hospitalist Discharge Summary Date of Admission: 02/19/2024 Date of Discharge: No discharge date for patient encounter. Discharging Provider: Twan Olmstead MD Discharge Service: Hospitalist Service Discharge Diagnoses Acute Saddle Pulmonary embolus with RV strain Severe RLE DVT Nocturnal Hypoxemia Major Depression Insomnia Hypertension Clinically Significant Risk Factors # Severe Obesity: Estimated body mass index is 51.28 kg/m?? as calculated from the following: Height as of an earlier encounter on 02/19/24: 1.829 m (6'). Weight as of an earlier encounter on 02/19/24: 171.5 kg (378 lb 1.6 oz). Follow-ups Needed After Discharge Follow-up Appointments Follow-up and recommended labs and tests F/up with PCP Dr. Gilmore within 1-2 weeks Pt states that he is currently on a medical leave for work that will continue at discharge F/up with IR in one month (they will call you to schedule) Discharge Disposition Discharged to home Condition at discharge: Stable Hospital Course Yesika Fontaine is a 38 year old male with a history of hypertension, anxiety, depression, and recent RLE DVT diagnosis (US 02/14/2024) who was admitted to [facility] on 02/19/2024 for acute hypoxic respiratory failure secondary to saddle PE with R heart strain and numerous RLE DVT prompting mechanical thrombectomy of saddle PE on 02/19/2024 and RLE DVTs on 02/20/2024. Was initially on heparin drip but this was transitioned to Xarelto 15mg BID on 02/21/2024. He will take this BID for total 21 days (end 03/12/2024) prior to transitioning to 20mg daily PO on 03/13/2024 for at least 3 months. Hospital coursecomplicated by nocturnal hypoxia likely secondary to untreated FAITH so he was counseled to get an appointment with a sleep specialist to get a polysomnography. He will follow up with his PCP for post hospital evaluation and consideration of hematology/oncology referral for additional PE etiology work up. On day of discharge, he was tolerating his meals and medications without adverse effects. Ableto ambulate around floor without any SOUSA and was cleared by PT/OT to go home. All questions by patient answered by me. Stable for discharge home. Consultations This Hospital Stay PHARMACY IP CONSULT INTERVENTIONAL RADIOLOGY ADULT/PEDS IP CONSULT PHYSICAL THERAPY ADULT IP CONSULT PSYCHIATRY IP CONSULT PHARMACY LIAISON FOR MEDICATION COVERAGE CONSULT PHARMACY IP CONSULT PULMONARY IP CONSULT PULMONARY IP CONSULT RESPIRATORY CARE IP CONSULT Code Status Full Code Time Spent on this Encounter ITwan DO, personally saw the patient today and spent greater than 30 minutes discharging this patient. Twan Olmstead MD [place] [address] [place] [id number] Physical Exam Vital Signs: Temp: 98.2 ??F (36.8 ??C) Temp src: Oral BP: 139/83 Pulse: 93 Resp: 18 SpO2: 95 % O2 Device: None (Room air) Weight: 0 lbs 0 oz GEN: Alert, awake, lying flat on his back in bed - oxymask in place. He does not appear to be in any acute respiratory distress at this time. HEENT: Normocephalic/atraumatic, no scleral icterus, no nasal discharge CV: somewhat distant but regular rate and rhythm, no clear loud murmur. S1 + S2 noted LUNGS: Clear to auscultation ant/lat bilaterally without rales/rhonchi/wheezing/retractions. Symmetric chest rise on inhalation noted. ABD: Active bowel sounds, soft, non-tender to light palpation throughout; mildly distended throughout. No guarding/rigidity. EXT: No significant pitting pretibial edema bilaterally. No cyanosis. No new joint synovitis noted. SKIN: Dry to touch, no new exanthems noted in the visualized areas. PSYCH: flattened affect; will maintain fairly direct eye contact Speech is slow Primary Care Physician Valentin Muñoz Discharge Orders Primary Care - Care Coordination Referral Reason for your hospital stay You were admitted for SOB and found to have acute pulmonary embolism and acute DVT Activity Your activity upon discharge: activity as tolerated Follow-up and recommended labs and tests F/up with PCP Dr. Gilmore within 1-2 weeks Pt states that he is currently on a medical leave for work that will continue at discharge F/up with IR in one month (they will call you to schedule) Diet Follow this diet upon discharge: lower sodium diet Significant Results and Procedures Results for orders placed or performed during the hospital encounter of 02/19/24 CT Chest Pulmonary Embolism w Contrast Value Radiologist flags Pulmonary embolism (AA) Narrative EXAM: CT CHEST PULMONARY EMBOLISM W CONTRAST LOCATION: [facility] DATE: 02/19/2024 INDICATION: known DVT, SOB COMPARISON: None. TECHNIQUE: CT chest pulmonary angiogram during arterial phase injection of IV contrast. Multiplanarreformats and MIP reconstructions were performed. Dose reduction [...] hemidiaphragm. LIMITED UPPER ABDOMEN: Negative. MUSCULOSKELETAL: Negative. Impression IMPRESSION: 1. Stents of pulmonary embolism bilaterally including large saddle embolus. Pulmonary arteries and right ventricle appear mildly enlarged compatible with elevated right heart pressure. [Critical Result: Pulmonary embolism] Finding was identified on 02/19/2024 6:[address] Trujillo was contacted by me on 02/19/2024 6:44 PM CDT. IR Pulmonary Angiogram Bilateral Narrative [facility] LOCATION: [facility] DATE: 02/19/2024 PROCEDURE: 1. SELECTIVE AND SUPERSELECTIVE [...] sterile drape. Prior to the procedure, the information systems operator and commercial lines account assistant performed hand hygiene and wore hat, [...] exchanged over the wire for a 4 Tongan coaxial dilator. The inner 3 Tongan dilator and 0.018 inch wire were then exchanged for a 0.035 inch guidewire. The outer 4 Tongan dilator was then exchanged over the guidewire for a 6 Tongan vascular sheath. Utilizing preclose technique 2 Perclose suture devices were deployed at the right common femoral venous access site in standard fashion. The 6 Tongan sheath was removed over a 0.035 inch Amplatz wire. Serial dilatation was performed to 20 Tongan followed by a 24 Tongan dry seal sheath. A 6 Tongan Grollman-type catheter was advanced over a 0.035 [...] branch (greater than third order). A 24 Tongan FlowTriever catheter was advanced into the main right pulmonary artery and primary percutaneous transluminal mechanical thrombectomy (extirpation of matter) was performed with removal of a moderate amount of thrombus from the main right and right lower and right upper lobe pulmonary arteries. Pressure measurement was obtained. The catheter was retracted in the main pulmonary artery. A 5 Tongan KMP catheter, with the aid of a 0.035 inch angled Glidewire, was directed through the 24 Tongan catheter and directed into the left pulmonary artery. Pressure measurements were obtained. A pulmonary arteriogram was obtained. Next the Amplatz wire was removed from the left pulmonary artery and advanced through the KMP catheter into the left pulmonary artery. Following this the KMP catheter was exchanged for the dilator of the 24 Tongan catheter. This was advanced into the left pulmonary artery. The 24 Tongan FlowTriever catheter was advanced into the main left pulmonary artery and primary percutaneous transluminal mechanical thrombectomy (extirpation of matter) was performed with removal of a moderate amount of thrombus from the left mid and left lower pulmonary arteries. A 20 Tongan curved embolectomy catheter was advanced coaxially through the 24 Tongan catheter and additional mechanical thrombectomy performed with [...] shows thrombus within the bilateral pulmonary arteries. Impression IMPRESSION: 1. Primary percutaneous transluminal mechanical thrombectomy [...] artery following thrombectomy: 13 NAS EDOUARD MD IR Lower Extremity Venogram Right Narrative INTERVENTIONAL RADIOLOGY RIGHT LOWER EXTREMITY VENOGRAM February [...] popliteal vein. Over series of maneuvers, 6 Tongan vascular sheath was placed. Berenstein catheter was placed in the popliteal vein, femoral vein, common femoral vein, common iliac vein, and IVC where venograms were performed. Catheter was then used to advance a super stiff Amplatz wire to the ipsilateral subclavian vein. 13 Tongan sheath was then placed and 8 mm [...] the femoral vein via the popliteal vein. Impression IMPRESSION: 1. Mechanical thrombectomy in the right [...] be removed in one to two days. OMERO KIMBLE MD Echocardiogram Complete Value LVEF 60% Narrative [id number] [facility] [id number]^ZAIRE^DAIANA [facility] Echocardiography Laboratory [facility] [place] [address] Name: YESIKA FONTAINE : 1985 Study Date: 02/20/2024 12:17 PM Age: 38 yrs Gender: Male Patient Location: [facility] Reason For Study: SOB Ordering Physician: DAIANA TAI Referring Physician: Valentin Muñoz Performed By: Earnest Bellamy BSA: 2.8 m2 Height: 72 in Weight: 380 lb HR: 94 BP: 120/78 mmHg Procedure Complete Portable Echo Adult. Optison ([facility] #[id number]) given intravenously. Interpretation Summary 1. The left [...] PA acc time: 0.14 sec TR max mayco: 281.0 cm/sec TR max P.6 mmHg AV Mayco Ratio (DI): 0.71 LUCAS Index (cm2/m2): 1.6 RV S Mayco: 16.0 cm/sec Report approved by: Shanel Farooq 02/20/2024 12:56 PM Discharge Medications Current Discharge Medication List START taking these medications Details acetaminophen (TYLENOL) 325 MG tablet Take 2 tablets (650 mg) by mouth every 4 hours as needed for mild pain or other (and adjunct with moderate or severe pain or per patient request) Associated Diagnoses: Acute saddle pulmonary embolism with acute cor pulmonale (H) rivaroxaban ANTICOAGULANT (XARELTO) 2.5 MG TABS tablet Take 6 tablets (15 mg) by mouth 2 times daily (with meals) for 19 days, THEN 8 tablets (20 mg) daily (with dinner) for 30 days. Qty: 468 tablet, Refills: 0 Comments: Pt should not stop xarelto will just need a refill when above rx completed with PCP Associated Diagnoses: Acute saddle pulmonary embolism with acute cor pulmonale (H) CONTINUE these medications which have CHANGED Details amLODIPine (NORVASC) 10 MG tablet Take 1 tablet (10 mg) by mouth daily HOLD IF SBP <130 Qty: 90 tablet, Refills: 3 Associated Diagnoses: Essential hypertension gabapentin (NEURONTIN) 600 MG tablet Take 2 tablets (1,200 mg) by mouth at bedtime Qty: 30 tablet, Refills: 2 Associated Diagnoses: CAROLE (generalized anxiety disorder) CONTINUE these medications which have NOT CHANGED Details FLUoxetine (PROZAC) 40 MG capsule Take 40 mg by mouth daily hydrOXYzine (VISTARIL) 50 MG capsule Take 50 mg by mouth 3 times daily as needed for anxiety LORazepam (ATIVAN) 1 MG tablet Take 1 mg by mouth daily as needed for anxiety risperiDONE (RISPERDAL) 2 MG tablet Take 1 tablet by mouth at bedtime traZODone (DESYREL) 100 MG tablet Take 100 mg by mouth at bedtime STOP taking these medications lisinopril-hydrochlorothiazide (ZESTORETIC) 20-25 MG tablet Comments: Reason for Stopping: potassium chloride misa ER (KLOR-CON M10) 10 MEQ CR tablet Comments: Reason for Stopping: Allergies Allergies Allergen Reactions Cephalexin Hives documented in this encounter Discharge Instructions * Discharge Instructions* Twan Olmstead MD - 02/23/2024 12:53 PM CDT * Attachments The following attachments cannot be sent through Care Everywhere. * Pulmonary Embolism (Chinese) documented in this encounter Medications at Time of Discharge [...] for 30 days. 468 tablet 02/22/2024 04/11/2024 traZODone (DESYREL) 100 MG tablet Take 100 mg by mouth at bedtime 02/06/2024 documented as of this encounter Progress Notes * Restricted notes were excluded * Case Maxwell RN - 02/23/2024 3:48 PM CDT Pt and family received all information for discharge. * Sneha Kramer APRN CNP - 02/23/2024 12:47 PM CDT Images from the original note were not included. Pk was seen briefly today to check the Left posterior popliteal stitch removal site. He is feeling better and hoping to go home today. The left posterior popliteal site evaluated. SiteCD&I, no oozing or echymosis. RN did a great job removing the stitch. IR will contact patient to be seen in follow up in a month. Thanks, [facility] Interventional Radiology ENVIRONMENTAL SERVICES SUPERVISOR ([phone]) (phone [phone]) * eBl Platt RN - 02/22/2024 6:17 PM CDT A&O, flat affect. VSS on RA. Tele discontinued, was SR/ST. Lungs clear. CMS intact. Groin and popliteal thrombectomy sites FLOOR CARE SPECIALIST, non tender, soft. IND, ambulating in hallway frequently today. PIV SL. Voiding adequately. No BM today, BS active, passing gas. Low NA diet, tolerating. Plan: Monitor overnight oxygen needs, CPAP vs BIPAP as needed. Pulmonology consult for tomorrow. Plan to discharge tomorrow if cleared. * Catherine Wilburn DO - 02/22/2024 12:02 PM CDT [facility] Medicine Progress Note - Hospitalist Service Date of Admission: 02/19/2024 Assessment & Plan Yesika Fontaine is a 38 year old male with a history of hypertension, anxiety, and depression, who presents to the ED for R leg evaluation and shortness of breath. The patient was sent for an ultrasound by Dr. Gilmore at [facility] due to R leg pain, which started on Monday (02/14/24). An ultrasound showed a blood clot, and he was sent to the ED because they were concerned for it traveling to his lungs due to his shortness of breath upon ambulation and a slight cough. The patient denies any chest pain or fever. He has had no recent injury to his R leg. Of note, he was seen in the [facility] unit a couple weeks ago, and was hospitalized at [facility] over the weekend for mental health challenges. Acute Saddle Pulmonary embolus with RV strain Severe RLE DVT S/p PE thrombectomy on 02/18 and s/p RLE DVT thrombectomy 02/19 with both removing a large amount of clot Remained on IV heparin for 24 hours post-procedure Was started on xarelto 02/21/24 evening - tolerated well IR instructions are for removal of stitch in the posterior popliteal today (02/22/24) Was dizzy with ambulation yesterday - will assess these symptoms when up out of bed today Echo--02/20/24 reviewed: 1. The left ventricle is normal in size. The visual ejection fraction is estimated at 60%. 2. The right ventricle is mildly dilated. The right ventricular systolic function is normal. PCP to consider outpt hematology consult after discharge Not clear if he had recent COVID test, infection 2. Acute hypoxic respiratory failure Has required supplemental oxygen d/t #1 since hospital admission Oxygenation improved during the day 02/21/24, but then again required 5L oxymask overnight Will attempt to wean off oxygen today with close clinical monitoring and also do home oxygen eval with ambulation today Goal oxygen >/89% Trying to see if pulmonary medicine is available for phone consultation today to discuss (charge RNis looking into this for me). Pulmonary consult order placed. Anticipate will need to stay in the hospital yet today for closer evaluation of actual oxygen needstoday and tonight. RT to assist and utilize trial of CPAP tonight and to see high oxygen needs still required. 3. Major Depression Insomnia Patient had recent admissions at [facility] and recently in the [facility] system. Psych consulted (02/21/24) - appreciated Recs are to continue MED SURG NURSE prozac, risperdol and neurontin dose Holding MED SURG NURSE ativan, for now, d/t oxygenation challenges (as above) 4. Hypertension Has a h/o HTN but SBP have been lower last evening and this am (100's) Currently - MED SURG NURSE lisinopril/hydrochlorothiazide on hold MED SURG NURSE norvasc 5mg ordered with holding BP parameters PPE Used: Mask, gloves Diet: 2 Gram Sodium Diet Diet DVT Prophylaxis: DOAC Velásquez Catheter: Not present Lines: None Cardiac Monitoring: ACTIVE order. Indication: saddle PE Code Status: Full Code Clinically Significant Risk Factors # Hypokalemia: Lowest K = 3.3 mmol/L in last 2 days, will replace as needed # Hypertension: Noted on problem list #Precipitous drop in Hgb/Hct: Lowest Hgb this hospitalization: 12.2 g/dL. Will continue to monitor and treat/transfuse as appropriate. # Severe Obesity: Estimated body mass index is 51.28 kg/m?? as calculated from the following: Height as of an earlier encounter on 02/19/24: 1.829 m (6'). Weight as of an earlier encounter on 02/19/24: 171.5 kg (378 lb 1.6 oz)., PRESENT ON ADMISSION # Financial/Environmental Concerns: Disposition Plan Medically Ready for Discharge: Anticipated Tomorrow 02/22/24 - He is remaining in the hospital today to further clarify his oxygen needs for discharge inthe setting of acute pulmonary embolism now s/p thrombectomy and with increased ambulation today. Catherine Wilburn DO Hospitalist Service [facility] Securely message with Paulette (more info) Text page via [facility] Paging/Directory Interval History Slept on and off. Per nursing, required supplemental oxygen via oxymask overnight. Still in place as he is just waking up and has not yet been trialed off. Was dizzy when ambulating yesterday - has not yet been up out of bed to see how he feels today. No current anterior chest pain or pleuritic chest pain reported. No KIM or F/C. No nausea after starting xarelto. Hoping to discharge home as soon as he can. Physical Exam Vital Signs: Temp: 98.4 ??F (36.9 ??C) Temp src: Oral BP: 116/78 Pulse: 82 Resp: 19 SpO2: 96 % O2 Device: None (Room air) Oxygen Delivery: 5 LPM Weight: 0 lbs 0 oz GEN: Alert, awake, lying flat on his back in bed - oxymask in place. He does not appear to be in any acute respiratory distress at this time. HEENT: Normocephalic/atraumatic, no scleral icterus, no nasal discharge CV: somewhat distant but regular rate and rhythm, no clear loud murmur. S1 + S2 noted LUNGS: Clear to auscultation ant/lat bilaterally without rales/rhonchi/wheezing/retractions. Symmetric chest rise on inhalation noted. ABD: Active bowel sounds, soft, non-tender to light palpation throughout; mildly distended throughout. No guarding/rigidity. EXT: No significant pitting pretibial edema bilaterally. No cyanosis. No new joint synovitis noted. SKIN: Dry to touch, no new exanthems noted in the visualized areas. PSYCH: flattened affect; will maintain fairly direct eye contact Speech is slow Medical Decision Making 54 MINUTES SPENT BY ME on the date of service doing chart review, history, exam, documentation & further activities per the note. Data Medications Current Facility-Administered Medications Medication Dose Route Frequency Provider Last Rate Last Admin Patient is already receiving anticoagulation with heparin, enoxaparin (LOVENOX), warfarin (COUMADIN) or other anticoagulant medication Does not apply Continuous PRN Joshua Whitehead MD Current Facility-Administered Medications Medication Dose Route Frequency Provider Last Rate Last Admin FLUoxetine (PROzac) capsule 40 mg 40 mg Oral Daily Joshua Whitehead MD 40 mg at 02/22/24 0924 potassium chloride misa ER (KLOR-CON M20) CR tablet 40 mEq 40 mEq Oral Once Catherine Wilburn DO risperiDONE (risperDAL) tablet 2 mg 2 mg Oral At Bedtime Joshua Whitehead MD 2 mg at 02/21/242126 rivaroxaban ANTICOAGULANT (XARELTO) tablet 15 mg 15 mg Oral BID w/meals Daiana Tai MD 15 mg at02/22/24 0924 Followed by [START ON 03/11/2024] rivaroxaban ANTICOAGULANT (XARELTO) tablet 20 mg 20 mg Oral Daily with supper Daiana Tai MD sodium chloride (PF) 0.9% PF flush 3 mL 3 mL Intracatheter Q8H Joshua Whitehead MD 3 mL at 02/22/24 0633 sodium chloride (PF) 0.9% PF flush 3 mL 3 mL Intracatheter Q8H Joshua Whitehead MD 3 mL at 02/22/24 0632 Labs and Imaging results below reviewed today. Recent Labs Lab 02/22/24 0602/21/24 1004 02/21/24 0734 02/20/24 0533 02/19/24 1555 WBC -- -- -- 8.5 10.6 HGB 12.2* 13.7 13.3 14.1 16.4 HCT -- -- -- 40.1 46.1 MCV -- -- -- 79 79 PLT -- -- -- 203 246 Recent Labs Lab 02/22/2462302/21/24 0735 02/21/24 0734 02/21/24 0019 02/20/24 0533 NA 134* -- 131* -- 135 POTASSIUM 3.3* -- 3.6 3.6 3.3* 2.9* CHLORIDE 101 -- 101 -- 98 CO2 25 -- 23 -- 24 ANIONGAP 8 -- 7 -- 13 GLC 99 113* 108* -- 125* BUN 12.7 -- 16.9 -- 20.6* CR 0.72 -- 0.69 -- 0.84 GFRESTIMATED >90 -- >90 -- >90 LOCO 8.2* -- 8.1* -- 8.7 7-Day Micro Results No results found for the last 168 hours. Recent Labs Lab 02/22/2462302/21/24 0735 02/21/24 0734 02/21/24 0019 02/20/24 0533 02/20/24 0134 02/19/24 1555 NA 134* -- 131* -- 135 -- 133* POTASSIUM 3.3* -- 3.6 3.6 3.3* 2.9* -- 3.4 CHLORIDE 101 -- 101 -- 98 -- 96* CO2 25 -- 23 -- 24 -- 21* ANIONGAP 8 -- 7 -- 13 -- 16* GLC 99 113* 108* -- 125* < > 133* BUN 12.7 -- 16.9 -- 20.6* -- 23.4* CR 0.72 -- 0.69 -- 0.84 -- 1.19* GFRESTIMATED >90 -- >90 -- >90 -- 80 LOCO 8.2* -- 8.1* -- 8.7 -- 9.2 MAG -- -- -- -- 2.2 -- -- PROTTOTAL -- -- -- -- 6.4 -- 7.1 ALBUMIN -- -- -- -- 3.5 -- 4.1 BILITOTAL -- -- -- -- 1.0 -- 1.0 ALKPHOS -- -- -- -- 53 -- 59 AST -- -- -- -- 14 -- 20 ALT -- -- -- -- 20 -- 24 < > = values in this interval not displayed. No results for input(s): TSH in the last 168 hours. No results for input(s): COLOR, APPEARANCE, URINEGLC, URINEBILI, URINEKETONE, SG, UBLD, URINEPH, PROTEIN, UROBILINOGEN, NITRITE, LEUKEST, RBCU, WBCU in the last 168 hours. No results found for this or any previous visit (from the past 24 hour(s)). * Bel Platt RN - 02/21/2024 6:00 PM CDT A&O, flat affect, needs a lot of motivation to ambulate/participate with cares. Became dizzy twice this shift sitting up in chair, resolved after lying down. VSS on RA. CMS intact. Groin and popliteal site soft, non-tender, CDI. Tele SR/ST. PIV SL. SBA ambulating. Voiding adequate in BR. No BM,BS active, passing gas. Low sodium diet, good appetite. Plan : Overnight sleep study needs to be completed. Heparin gtt discontinued this evening, xarelto started. Continue to encourage out of bed and ambulation. Removed stitch from R popliteal site tomorrow. * Cristofer Tracy, PT - 02/21/2024 5:35 PM CDT 02/21/24 7445 Appointment Info Signing Clinician's Name / Credentials (PT) Cristofer Tracy PT, DPT Industry Analyst Industry Analyst Present no Living Environment People in Home spouse;child(katerin), dependent Current Living Arrangements house Home Accessibility stairs to enter home Number of Stairs, Main Entrance 3 Stair Railings, Main Entrance none Transportation Anticipated car, drives self;family or friend will provide Living Environment Comments Pt lives with his spouse and 11 yo daughter in a house with 3 MOUNA. Has a basement, but does not need to go down to the basement. Pt drives at baseline Self-Care Usual Activity Tolerance good Current Activity Tolerance moderate Equipment Currently Used at Home none Fall history within last six months no Activity/Exercise/Self-Care Comment Pt reporting IND at baseline with mobility and ADLs without useof AD General Information Onset of Illness/Injury or Date of Surgery 02/19/24 Referring Physician Daiana Tai MD Patient/Family Therapy Goals Statement (PT) did not state Pertinent History of Current Problem (include personal factors and/or comorbidities that impact thePOC) Per chart review, Yesika Fontaine is a 38 year old male with a history of hypertension, anxiety, and depression, who presents to the ED for R leg evaluation and shortness of breath. The patient was sent for an ultrasound by Dr. Gilmore at [facility] due to R leg pain, which started on Monday (02/14/24). An ultrasound showed a blood clot, and he was sent to the ED because they were concerned for it traveling to his lungs due to his shortness of breath upon ambulation and a slight cough.The patient denies any chest pain or fever. He has had no recent injury to his R leg. Of note, he was seen in the [facility] unit a couple weeks ago, and was hospitalized at [facility] over the weekend for mental health challenges. General Observations Patient is outside of bedrest window following mechanical thrombectomy in [facility] on 02/19. Cognition Affect/Mental Status (Cognition) flat/blunted affect Orientation Status (Cognition) oriented x 4 Follows Commands (Cognition) WFL Cognitive Status Comments Patient with very flat affect. At times, not responding to questions, needing questions repeated. Spouse answering at times. Integumentary/Edema Integumentary/Edema no deficits were identifed Posture Posture Forward head position;Protracted shoulders Range of Motion (ROM) Range of Motion ROM is WFL Strength (Manual Muscle Testing) Strength (Manual Muscle Testing) Deficits observed during functional mobility Strength Comments mild functional strength and endurance deficits Bed Mobility Comment, (Bed Mobility) IND supine>sit Transfers Comment, (Transfers) CGA sit>stand w/ FWW Gait/Stairs (Locomotion) Distance in Feet (Gait) 10' eval Comment, (Gait/Stairs) pt ambulated 10' w/ FWW and CGA for eval Balance Balance Comments mild dynamic balance impairment Sensory Examination Sensory Perception patient reports no sensory changes Clinical Impression Criteria for Skilled Therapeutic Intervention Yes, treatment indicated PT Diagnosis (PT) impaired functional mobility Influenced by the following impairments impaired strength, balance, activity tolerance Functional limitations due to impairments limited IND with mobility Clinical Presentation (PT Evaluation Complexity) stable Clinical Presentation Rationale clinical judgement Clinical Decision Making (Complexity) low complexity Planned Therapy Interventions (PT) balance training;bed mobility training;gait training;home exercise program;neuromuscular re-education;patient/family education;ROM (range of motion);strengthening;stair training;transfer training;progressive activity/exercise;home program guidelines Risk & Benefits of therapy have been explained evaluation/treatment results reviewed;care plan/treatment goals reviewed;risks/benefits reviewed;current/potential barriers reviewed;participants voiced agreement with care plan;participants included;patient;spouse/significant other PT Total Evaluation Time PT Eval, Low Complexity Minutes (04825) 5 Physical Therapy Goals PT Frequency Daily PT Predicted Duration/Target Date for Goal Attainment 02/26/24 PT Goals Bed Mobility;Transfers;Gait;Stairs PT: Bed Mobility Independent;Supine to/from sit;Goal Met;Completed PT: Transfers Independent;Sit to/from stand;Bed to/from chair PT: Gait Independent;Greater than 200 feet PT: Stairs Modified independent;3 stairs Interventions Interventions Quick Adds Gait Training;Therapeutic Activity Therapeutic Activity Therapeutic Activities: dynamic activities to improve functional performance Minutes (27406) 5 Symptoms Noted During/After Treatment Fatigue Treatment Detail/Skilled Intervention Greeted pt upon arrival to room. Pt agreeable to working withPT. Spouse present in room during session. Supine>sit IND. Sit>stand w/ FWW and CGA. Cueing for safe and efficient sit<>stand procedure including scooting to the front edge of the chair, to lean forward with nose over toes, and hand and foot placement. Following ambulation, stand>sitto bed w/ SBA. Cueing for safe sitting procedures including feeling the bed with both legs and reaching back with a hand to find the edge of the bed. Sit>supine IND. Pt left with all needs met andcall light within reach. RN updated. Gait Training Gait Training Minutes (14008) 10 Symptoms Noted During/After Treatment (Gait Training) fatigue;shortness of breath Treatment Detail/Skilled Intervention Pt ambulated 100' w/ FWW and CGA, progressing to mod I throughout. Cueing to move in a slow and controlled manner while keeping head, chest, and eyes upward withfair adherence. Improved gait speed following improved upright posture. Pt ambulated 200' w/ no AD and CGA initially, progressing to mostly SBA throughout. Cueing again to move in a slow and controlled manner with fair stability throughout with mild lateral path deviations, but able to correct without physical assist. Distance in Feet 100' & 200' PT Discharge Planning PT Plan ambulate without AD, transfers, stairs, dynamic balance challenges, activity tolerance PT Discharge Recommendation (DC Rec) home with assist PT Rationale for DC Rec Patient appears to be below baseline mobility levels with deficits in functional strength, balance, and activity tolerance, but mobilizing 100's of feet with SBA and without use of an assistive device. Recommend discharge home with assist from spouse for higher level IADLs while pt recovers from RLE mechanical thrombectomy. Also recommend implementation of ambulation program to continue progressing and improving activity tolerance. PT Brief overview of current status SBA Total Session Time Timed Code Treatment Minutes 15 Total Session Time (sum of timed and untimed services) 20 * Sneha Kramer APRN ENVIRONMENTAL SERVICES SUPERVISOR - 02/21/2024 12:42 PM CDT Images from the original note were not included. Interventional Radiology Progress Note: Inpatient at [facility] Date: February 21, 2024 HPI: Yesika Fontaine is a 38 year old male with a history of hypertension, anxiety, and depression with recent admission/care for, who presents to the ED on 02/19/24 for R leg evaluation and shortness of breath. He was found to have a fairly extensive R leg DVT and bilateral PE per imaging. He is s/p PE thrombectomy on 02/18 and s/p RLE DVT thrombectomy 02/19 with both removing a large amountof clot. He is being seen in IR follow up today. Interval History: Doing ok. [place] dizzy after being up in a chair. Breathing is a little better thanwhen admitted. Doesn't notice any difference with his legs. No c/o pain. Physical Exam: Vitals:Temp: [97.8 ??F (36.6 ??C)-98.8 ??F (37.1 ??C)] 98.4 ??F (36.9 ??C) Pulse: [89-109] 99 Resp: [10-23] 18 BP: (106-164)/(49-105) 125/72 SpO2: [92 %-98 %] 94 % General: Flat affect, quiet, cooperative male in no acute distress. is in the room. Neuro: A&O x 3. Does not move much spontaneously but can to command. Resp: Normal respirations on room air. Non labored breathing. Equal air entry B/L Abdomen: obese, non-tender. Vascular: right groin procedure site with dressing CDI. Site soft without tenderness. -Right mildly larger than Left leg but soft. Per she feels both legs appear big and can't really tell. -R posterior popliteal dressing and stitch chavez intact, no bleeding Labs: ROUTINE ICU LABS (Last four results) CMP Recent Labs Lab 02/21/24 0735 02/21/24 0734 02/21/24 0019 02/20/24 0533 02/20/24 0134 02/19/24 1555 NA -- 131* -- 135 -- 133* POTASSIUM -- 3.6 3.6 3.3* 2.9* -- 3.4 CHLORIDE -- 101 -- 98 -- 96* CO2 -- 23 -- 24 -- 21* ANIONGAP -- 7 -- 13 -- 16* GLC 113* 108* -- 125* 115* 133* BUN -- 16.9 -- 20.6* -- 23.4* CR -- 0.69 -- 0.84 -- 1.19* GFRESTIMATED -- >90 -- >90 -- 80 LOCO -- 8.1* -- 8.7 -- 9.2 MAG -- -- -- 2.2 -- -- PROTTOTAL -- -- -- 6.4 -- 7.1 ALBUMIN -- -- -- 3.5 -- 4.1 BILITOTAL -- -- -- 1.0 -- 1.0 ALKPHOS -- -- -- 53 -- 59 AST -- -- -- 14 -- 20 ALT -- -- -- 20 -- 24 CBC Recent Labs Lab 02/21/24 1004 02/21/24 0734 02/20/24 0533 02/19/24 1555 WBC -- -- 8.5 10.6 RBC -- -- 5.06 5.81 HGB 13.7 13.3 14.1 16.4 HCT -- -- 40.1 46.1 MCV -- -- 79 79 MCH -- -- 27.9 28.2 MCHC -- -- 35.2 35.6 RDW -- -- 13.1 13.1 PLT -- -- 203 246 INRNo lab results found in last 7 days. Arterial Blood Gas Recent Labs Lab 02/19/24 1555 O2PER 21 Assessment/Plan:Yesika Fontaine is a 38 year old male with a history of hypertension, anxiety, and depression with recent admission/care for, who presents to the ED on 02/19/24 for R leg evaluation and shortness of breath. He was found to have a fairly extensive R leg DVT and bilateral PE per imaging. He is s/p PE thrombectomy on 02/18 and s/p RLE DVT thrombectomy 02/19 with both removing a large amountof clot. -Doing better overall, doesn't appear to feel motivated to move much, difficult to evaluate in general - Encourage to be up and around more often with frequent rest periods -Keep stitch in (posterior popliteal) until tomorrow and remove it at the end of the day shift. RN Bel will be at work tomorrow and is comfortable removing the stitch. -IV Heparin for 24 hours post procedure and then switch to oral blood thinner -IR will see the patient in one month for an US and clinic visit. [facility] will call the patient after discharge to make the appointment. Total time spent on the date of the encounter is 30 minutes, including time spent counseling the patient, performing a medically appropriate evaluation, reviewing prior medical history, ordering medications and tests, documenting clinical information in the medical record, and communication of results. Thanks [facility] Interventional Radiology ENVIRONMENTAL SERVICES SUPERVISOR ([phone]) (phone [phone]) * Herbert Chisholm PA-C - 02/20/2024 2:32 PM CDT Images from the original note were not included. Interventional Radiology - Progress Note Inpatient - [facility] 02/20/2024 S: Patient reports no pain at right CFV access site from PE thrombectomy. States RLE pain improved when he started heparin at presentation, but pain was mostly with activity and he has not yet ambulated. O: BP 135/81 Pulse 104 Temp 98.2 ??F (36.8 ??C) (Axillary) Resp 17 SpO2 97% General: Stable. In no acute distress. Neuro: A&O. Moves all extremities equally. Heart: RRR Lungs: No increased work of breathing on 2L O2 via mask Ext: No discoloration in lower extremities, mild swelling distal RLE Imaging: US Venous RLE 02/19/24: IMPRESSION: Extensive deep vein thrombosis in the [...] this patient was also short of breath. Pulmonary angiogram with thrombectomy 02/19/24: FINDINGS: Ultrasound demonstrates a patent and fully [...] 29 Left pulmonary artery following thrombectomy: 13 Labs (Last four results) CMP Recent Labs Lab 02/20/24 0533 02/20/24 0134 02/19/24 1555 POTASSIUM 2.9* -- 3.4 GLC 125* 115* 133* BUN 20.6* -- 23.4* CR 0.84 -- 1.19* GFRESTIMATED >90 -- 80 CBC Recent Labs Lab 02/20/24 0533 02/19/24 1555 WBC 8.5 10.6 RBC 5.06 5.81 HGB 14.1 16.4 HCT 40.1 46.1 PLT 203 246 INRNo lab results found in last 7 days. A: RLE DVT Saddle PE s/p pulmonary angiogram with mechanical thrombectomy 02/19/24 P: -RLE venogram w mechanical thrombectomy today -Procedure risks, benefits, details, alternatives discussed in detail w patient and spouse by Dr Kimble including but not limited to anticoagulation alone, anticoagulation w IVC filter, thrombectomy. Patient has opted to proceed w thrombectomy. Dr Kimble in agreement w plan -NPO for procedure Herbert Chisholm PA-C Interventional Radiology *[id number] Total Time: 55 minutes * Daiana Tai MD - 02/20/2024 10:17 AM CDT [facility] Medicine Progress Note - Hospitalist Service Date of Admission: 02/19/2024 Assessment & Plan Yesika Fontaine is a 38 year old male with a history of hypertension, anxiety, and depression, who presents to the ED for R leg evaluation and shortness of breath. The patient was sent for an ultrasound by Dr. Gilmore at [facility] due to R leg pain, which started on Monday (02/14/24). An ultrasound showed a blood clot, and he was sent to the ED because they were concerned for it traveling to his lungs due to his shortness of breath upon ambulation and a slight cough. The patient denies any chest pain or fever. He has had no recent injury to his R leg. Of [facility] and was hospitalized at [facility] over the weekend for mental health challenges. ## Acute Saddle Pulmonary embolus with RV strain ## Severe RLE DVT ct on IV heparin Appreciate IR review. Now s/p mechanical thrombectomy 02/18 A/W further IR plan with respect to RLE DVT for possible IVC filter +/- RLE thrombectomy Echo--p ## Major Depression Patient had recent admissions at [facility] and recently in the [facility] system. His is at bedside, and he has had difficulty with his sleep for which his medications are being adjusted. Continue Fluoxetine, Risperidone Hold ativan and vistaril Continue trazodone and neurontin ## Hypertension IVF with NS Hold Norvasc, Lisinopril-HCTZ ## Morbid Obesity ## FAITH May need bipap Diet: NPO for Medical/Clinical Reasons Except for: No Exceptions DVT Prophylaxis: on heparin gtt Velásquez Catheter: Not present Lines: None Cardiac Monitoring: ACTIVE order. Indication: saddle PE Code Status: Full Code Clinically Significant Risk Factors Present on Admission # Hypokalemia: Lowest K = 2.9 mmol/L in last 2 days, will replace as needed # Hypertension: Noted on problem list # Severe Obesity: Estimated body mass index is 51.28 kg/m?? as calculated from the following: Height as of an earlier encounter on 02/19/24: 1.829 m (6'). Weight as of an earlier encounter on 02/19/24: 171.5 kg (378 lb 1.6 oz). # Financial/Environmental Concerns: Disposition Plan Medically Ready for Discharge: Anticipated in 2-4 Days Daiana Tai MD Hospitalist Service [facility] Securely message with [employer] (more info) Text page via [facility] Paging/Directory The above note was dictated using voice recognition software. Although reviewed after completion, some word and grammatical error may remain . Please contact the author for any clarifications. Interval History History reviewed. Flat affect . Feels breathing is better. Denies any chest pain Had worsening of depression for the last 1 month so has been predominantly been on bed Physical Exam BP 120/78 Pulse 100 Temp 98.2 ??F (36.8 ??C) (Axillary) Resp 17 SpO2 96% Gen- pleasant lying in bed Neck- supple CVS- I+II+ no m/r/g RS- CTAB Abdo- soft, no tenderness. No g/r/r Ext- edema Medical Decision Making 51 MINUTES SPENT BY ME on the date of service doing chart review, history, exam, documentation & further activities per the note. Data PAST 24 HR DATA REVIEWED I have personally reviewed the following data over the past 24 hrs: 8.5 \ 14.1 / 203 135 98 20.6 (H) / 125 (H) 2.9 (L) 24 0.84 \ ALT: 20 AST: 14 AP: 53 TBILI: 1.0 ALB: 3.5 TOT PROTEIN: 6.4 LIPASE: N/A Trop: 41 (H) BNP: 1,998 (H) INR: N/A PTT: N/A D-dimer: 6.32 (H) Fibrinogen: N/A Imaging results reviewed over the past 24 hrs: Recent Results (from the past 24 hour(s)) US Lower Extremity Venous Duplex Right Narrative US LOWER EXTREMITY VENOUS DUPLEX RIGHT 02/19/2024 [...] compressibility, spectral waveform, color flow and augmentation. Impression IMPRESSION: Extensive deep vein thrombosis in the [...] this patient was also short of breath. MARISA GILES DO CT Chest Pulmonary Embolism w Contrast Result Value Radiologist flags Pulmonary embolism (AA) Narrative EXAM: CT CHEST PULMONARY EMBOLISM W CONTRAST LOCATION: [facility] DATE: 02/19/2024 INDICATION: known DVT, SOB COMPARISON: None. TECHNIQUE: CT chest pulmonary angiogram during arterial phase injection of IV contrast. Multiplanarreformats and MIP reconstructions were performed. Dose reduction [...] hemidiaphragm. LIMITED UPPER ABDOMEN: Negative. MUSCULOSKELETAL: Negative. Impression IMPRESSION: 1. Stents of pulmonary embolism bilaterally including large saddle embolus. Pulmonary arteries and right ventricle appear mildly enlarged compatible with elevated right heart pressure. [Critical Result: Pulmonary embolism] Finding was identified on 02/19/2024 6:[address] Trujillo was contacted by me on 02/19/2024 6:44 PM CDT. IR Pulmonary Angiogram Bilateral Narrative [facility] LOCATION: [facility] DATE: 02/19/2024 PROCEDURE: 1. SELECTIVE AND SUPERSELECTIVE [...] sterile drape. Prior to the procedure, the information systems operator and commercial lines account assistant performed hand hygiene and wore hat, [...] exchanged over the wire for a 4 Tongan coaxial dilator. The inner 3 Tongan dilator and 0.018 inch wire were then exchanged for a 0.035 inch guidewire. The outer 4 Tongan dilator was then exchanged over the guidewire for a 6 Tongan vascular sheath. Utilizing preclose technique 2 Perclose suture devices were deployed at the right common femoral venous access site in standard fashion. The 6 Tongan sheath was removed over a 0.035 inch Amplatz wire. Serial dilatation was performed to 20 Tongan followed by a 24 Tongan dry seal sheath. A 6 Tongan Grollman-type catheter was advanced over a 0.035 [...] branch (greater than third order). A 24 Tongan FlowTriever catheter was advanced into the main right pulmonary artery and primary percutaneous transluminal mechanical thrombectomy (extirpation of matter) was performed with removal of a moderate amount of thrombus from the main right and right lower and right upper lobe pulmonary arteries. Pressure measurement was obtained. The catheter was retracted in the main pulmonary artery. A 5 Tongan KMP catheter, with the aid of a 0.035 inch angled Glidewire, was directed through the 24 Tongan catheter and directed into the left pulmonary artery. Pressure measurements were obtained. A pulmonary arteriogram was obtained. Next the Amplatz wire was removed from the left pulmonary artery and advanced through the KMP catheter into the left pulmonary artery. Following this the KMP catheter was exchanged for the dilator of the 24 Tongan catheter. This was advanced into the left pulmonary artery. The 24 Tongan FlowTriever catheter was advanced into the main left pulmonary artery and primary percutaneous transluminal mechanical thrombectomy (extirpation of matter) was performed with removal of a moderate amount of thrombus from the left mid and left lower pulmonary arteries. A 20 Tongan curved embolectomy catheter was advanced coaxially through the 24 Tongan catheter and additional mechanical thrombectomy performed with [...] shows thrombus within the bilateral pulmonary arteries. Impression IMPRESSION: 1. Primary percutaneous transluminal mechanical thrombectomy [...] artery following thrombectomy: 13 NAS EDOUARD MD Echocardiogram Complete Result Value LVEF 60% Narrative [id number]^ZAIRE^DAIANA [facility] Echocardiography Laboratory [address] [place] [address] Name: YESIKA FONTAINE : 1985 Study Date: 02/20/2024 12:17 PM Age: 38 yrs Gender: Male Patient Location: [facility] Reason For Study: SOB Ordering Physician: DAIANA TAI Referring Physician: Valentin Muñoz Performed By: Earnest Bellamy BSA: 2.8 m2 Height: 72 in Weight: 380 lb HR: 94 BP: 120/78 mmHg Procedure Complete Portable Echo Adult. Kristal ([facility] #[id number]) given intravenously. Interpretation Summary 1. The left [...] PA acc time: 0.14 sec TR max mayco: 281.0 cm/sec TR max P.6 mmHg AV Mayco Ratio (DI): 0.71 LUCAS Index (cm2/m2): 1.6 RV S Mayco: 16.0 cm/sec Report approved by: Navin Giles MDon 02/20/2024 12:56 PM documented in this encounter H&P Notes * Nas Edouard MD - 02/19/2024 8:02 PM CDT I have reviewed the surgical (or preoperative) H&P that is linked to this encounter, and examined the patient. There are no significant changes Clinical Conditions Present on Arrival: Clinically Significant Risk Factors Present on Admission # Hypokalemia: Lowest K = 3 mmol/L in last 30 days, will replace as needed # Hyponatremia: Lowest Na = 133 mmol/L in last 30 days, will monitor as appropriate # Severe Obesity: Estimated body mass index is 51.28 kg/m?? as calculated from the following: Height as of an earlier encounter on 02/19/24: 1.829 m (6'). Weight as of an earlier encounter on 02/19/24: 171.5 kg (378 lb 1.6 oz). Source Note - Valentin Muñoz MD - 02/19/2024 7:00 AM CDT Assessment & Plan ICD-10-CM 1. 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) F33.2 CT Head w/o Contrast 2. Right calf pain M79.661 US Lower Extremity Venous Duplex Right Severe depression, along with severe insomnia. Mood is somewhat improved compared to our last visitlast month, but still is not yet at his baseline. He and his question possible RADIO BROADCASTER causes for his fairly abrupt mood change a few months ago. Is reasonable to order RADIO BROADCASTER imaging to ensure he doesnot have a significant structural change. Right calf pain. dDx includes DVT, muscle strain, ligament injury, other. US ordered. After his visit, this showed extensive DVT through the right leg. Due to the extent, thrombectomy is considered an option and also may need to be evaluated for PE. Directed to the ED for further management. MED REC REQUIRED Post Medication Reconciliation Status: Discharge medications reconciled, continue medications without change Valentin Muñoz MD Bassam Cain is a 38 year old, presenting for the following health issues: Hospital F/U and Musculoskeletal Problem (Right Calf pain x 5 days ) History of Present Illness Reason for visit: Exams He eats 2-3 servings of fruits and vegetables daily.He consumes 1 sweetened beverage(s) daily.He exercises with enough effort to increase his heart rate 9 or less minutes per day. He exercises with enough effort to increase his heart rate 3 or less days per week. He is taking medications regularly. Hospital Follow-up Visit: Hospital/Shelter/IP Rehab Facility: [facility] Date of Admission: 02/02/2024 Date of Discharge: 02/06/2024 Reason(s) for Admission: Depression Was the patient in the ICU or did the patient experience delirium during hospitalization? No Do you have any other stressors you would like to discuss with your provider? OTHER: Right calf pain Problems taking medications regularly: None Medication changes since discharge: Updated Problems adhering to non-medication therapy: None Summary of hospitalization: CareEverywhere information obtained and reviewed Diagnostic Tests/Treatments reviewed. Follow up needed: none Other Healthcare Providers Involved in Patient???s Care: None Update since discharge: Feeling better except for calf pain Plan of care communicated with patient and family Severe depression. Had VV w/ psychiatry last week and scheduled tomorrow. Will be assessed later today for a partial hospitalization. Over the course of the hospitalization the following changes to medications were made: gabapentin 1200 mg at bedtime, Prozac 40 mg daily, Trazodone 100 mg at bedtime as needed for sleep, may repeat once and Vistaril 50 mg three times daily as needed for anxiety. He feels that his mood has improved somewhat compared to prior to this recent hospitalization. Is sleeping more, but still not having good sleep every night. Is feeling tired today. We discussed his medications; mood medications are managed by his psychiatrist. Right calf pain. 5 days. No injury recalled. No hx of DVT, his father did have a DVT. Calf feels warm to the touch. Is having pain all of the time, does seem worse with activity. Objective BP 109/73 (BP Location: Right arm, Patient Position: Sitting, Cuff Size: Adult Large) Pulse (!) 121 Temp 96.8 ??F (36 ??C) (Temporal) Resp 22 Ht 1.829 m (6') Wt (!) 171.5 kg (378 lb 1.6 oz) SpO2 95% BMI 51.28 kg/m?? Body mass index is 51.28 kg/m??. Physical Exam GEN: Sleepy PSYCH: Fair affect EXTR: Discomfort w/ palpation over the right upper calf muscle. Warmth noted on the upper 1/2 of the posterior right calf. Is able to contract his calf muscle w/o significant pain. Preliminary US result: Extensive DVT through the RLE Signed Electronically by: Valentin Muñoz MD * Joshua Whitehead MD - 02/19/2024 7:22 PM CDT [facility] History and Physical - Hospitalist Service Date of Admission: 02/19/2024 Assessment & Plan Yesika Fontaine is a 38 year old male with a history of hypertension, anxiety, and depression, who presents to the ED for R leg evaluation and shortness of breath. The patient was sent for an ultrasound by Dr. Gilmore at [facility] due to R leg pain, which started on Monday (02/14/24). An ultrasound showed a blood clot, and he was sent to the ED because they were concerned for it traveling to his lungs due to his shortness of breath upon ambulation and a slight cough. The patient denies any chest pain or fever. He has had no recent injury to his R leg. Of note, [facility], and was hospitalized at [facility] over the weekend for mental health challenges. He was seen in the ER and noted to be hemodynamically stable. He is diaphoretic. A CT of the chest showed a saddle PE with RV strain. Troponin bumped to 48, oxygen saturation of 95% on room air, BP and HR ok. Case was discussed with IR and they will come to do a thrombectomy. May need further intervention with respect to the extensive RLE DVT. ## Acute Saddle Pulmonary embolus with RV strain ## Severe RLE DVT Patient is not hypoxic or hemodynamically compromised but has been started on oxygen, anticoagulation and urgent consultation with IR. Patient will be seen and will undergo mechanical thrombectomy and then transferred to [facility] for close monitoring. Started on IV heparin NPO To IR suite for mechanical thrombectomy Transfer to IMC post procedure Further IR re-consultation with respect to RLE DVT for possible IVC filter +/- RLE thrombectomy ## Major Depression Patient had recent admissions at [facility] and recently in the [facility] system. His is at bedside, and he has had difficulty with his sleep for which his medications are being adjusted. Continue Fluoxetine Continue Resperidone Hold ativan and vistaril Continue trazodone and neurontin ## Hypertension Patient has soft blood pressures in setting of acute PE IVF with NS Hold Norvasc, Lisinopril-HCTZ ## Morbid Obesity ## FAITH May need bipap tonight Diet: Regular Diet Adult DVT Prophylaxis: Heparin IV Velásquez Catheter: Not present Lines: None Cardiac Monitoring: None Code Status: FULL Clinically Significant Risk Factors Present on Admission # Hypertension: Noted on problem list # Severe Obesity: Estimated body mass index is 51.28 kg/m?? as calculated from the following: Height as of an earlier encounter on 02/19/24: 1.829 m (6'). Weight as of an earlier encounter on 02/19/24: 171.5 kg (378 lb 1.6 oz). # Financial/Environmental Concerns: Disposition Plan Medically Ready for Discharge: Anticipated in 2-4 Days Joshua Whitehead MD Hospitalist Service [facility] Securely message with [employer] (more info) Text page via [employer] Paging/Directory Chief Complaint Leg pain and sob History is obtained from the patient, electronic health record, and emergency department physician History of Present Illness Yesika Fontaine is a 38 year old male with a history of hypertension, anxiety, and depression, who presents to the ED for R leg evaluation and shortness of breath. The patient was sent for an ultrasound by Dr. Gilmore at [facility] due to R leg pain, which started on Monday (02/14/24). An ultrasound showed a blood clot, and he was sent to the ED because they were concerned for it traveling to his lungs due to his shortness of breath upon ambulation and a slight cough. The patient denies any chest pain or fever. He has had no recent injury to his R leg. Of note, he was seen in the [facility] unit a couple weeks ago, and was hospitalized at [facility] over the weekend for mental health challenges. He was seen in the ER and noted to be hemodynamically stable. He is diaphoretic. A CT of the chest showed a saddle PE with RV strain. Troponin bumped to 48, oxygen saturation of 95% on room air, BP and HR ok. Case was discussed with IR and they will come to do a thrombectomy. December need further intervention with respect to the extensive RLE DVT. Past Medical History Past Medical History: Diagnosis Date Hypertension Obese FAITH (obstructive sleep apnea) 03/24/2022 Past Surgical History Past Surgical History: Procedure Laterality Date ORTHOPEDIC SURGERY Left 2002 left foot surgery VASECTOMY Bilateral 12/14/2018 Procedure: Bilateral vasectomy; Surgeon: Mark Miller MD; Location: OR Prior to Admission Medications Prior to Admission Medications Prescriptions Last Dose Informant Patient Reported? Taking? FLUoxetine (PROZAC) 40 MG capsule Yes No Sig: Take 40 mg by mouth LORazepam (ATIVAN) 1 MG tablet Yes No Sig: Take 1 mg by mouth daily as needed for anxiety OLANZapine (ZYPREXA) 10 MG tablet No No Sig: Take 1 tablet (10 mg) by mouth at bedtime Patient taking differently: Take 15 mg by mouth at bedtime amLODIPine (NORVASC) 10 MG tablet No No Sig: TAKE 1 TABLET DAILY (OFFICE VISIT NEEDED PRIOR TO ADDITIONAL REFILLS) gabapentin (NEURONTIN) 800 MG tablet No No Sig: Take 1 tablet (800 mg) by mouth at bedtime hydrOXYzine (VISTARIL) 50 MG capsule Yes No Sig: Take 50 mg by mouth lisinopril-hydrochlorothiazide (ZESTORETIC) 20-25 MG tablet No No Sig: TAKE 2 TABLETS DAILY potassium chloride misa ER (KLOR-CON M10) 10 MEQ CR tablet Yes No Sig: Take 10 mEq by mouth risperiDONE (RISPERDAL) 2 MG tablet Yes No Sig: Take 1 tablet by mouth at bedtime traZODone (DESYREL) 100 MG tablet Yes No Sig: Take 100 mg by mouth Facility-Administered Medications: None Physical Exam Vital Signs: Temp: 98 ??F (36.7 ??C) Temp src: Oral BP: 95/70 Pulse: 102 Resp: 20 SpO2: 94 % O2 Device: None (Room air) Weight: 0 lbs 0 oz General Appearance: Supine, diaphoretic, arouses, appears uncomfortable Respiratory: clear anteriorly Cardiovascular: tachycardic, regular GI: soft, NT Skin: warm, moist, plethoric Other: Moves all 4 ext Medical Decision Making 66 MINUTES SPENT BY ME on the date of service doing chart review, history, exam, documentation & further activities per the note. Data I have personally reviewed the following data over the past 24 hrs: 10.6 \ 16.4 / 246 133 (L) 96 (L) 23.4 (H) / 133 (H) 3.4 21 (L) 1.19 (H) \ ALT: 24 AST: 20 AP: 59 TBILI: 1.0 ALB: 4.1 TOT PROTEIN: 7.1 LIPASE: N/A Trop: 48 (H) BNP: 1,998 (H) INR: N/A PTT: N/A D-dimer: 6.32 (H) Fibrinogen: N/A Imaging results reviewed over the past 24 hrs: Recent Results (from the past 24 hour(s)) US Lower Extremity Venous Duplex Right Narrative US LOWER EXTREMITY VENOUS DUPLEX RIGHT 02/19/2024 [...] compressibility, spectral waveform, color flow and augmentation. Impression IMPRESSION: Extensive deep vein thrombosis in the [...] this patient was also short of breath. MARISA GILES DO CT Chest Pulmonary Embolism w Contrast Result Value Radiologist flags Pulmonary embolism (AA) Narrative EXAM: CT CHEST PULMONARY EMBOLISM W CONTRAST LOCATION: [facility] DATE: 02/19/2024 INDICATION: known DVT, SOB COMPARISON: None. TECHNIQUE: CT chest pulmonary angiogram during arterial phase injection of IV contrast. Multiplanarreformats and MIP reconstructions were performed. Dose reduction [...] hemidiaphragm. LIMITED UPPER ABDOMEN: Negative. MUSCULOSKELETAL: Negative. Impression IMPRESSION: 1. Stents of pulmonary embolism bilaterally including large saddle embolus. Pulmonary arteries and right ventricle appear mildly enlarged compatible with elevated right heart pressure. [Critical Result: Pulmonary embolism] Finding was identified on 02/19/2024 6:[address] Trujillo was contacted by me on 02/19/2024 6:44 PM CDT. documented in this encounter Procedure Notes * Nas Edouard MD - 02/19/2024 9:22 PM CDT Images from the original note were not included. Interventional Radiology Post-Procedure Note Procedure: Pulmonary angiogram with thrombectomy. Attending: Nas Edouard MD Findings: Moderate volume of thrombus removed from bilateral pulmonary arteries. Marked decrease inpulmonary pressures to follow. Plan: Bedrest; npo after midnight to allow possible DVT thrombectomy tomorrow. documented in this encounter Consult Notes * Madan Dee MD - 02/23/2024 8:05 AM CDTAssociated Order(s): PULMONARY IP CONSULT [facility] Pulmonary Consult Note Date of Service: 02/23/24 Assessment and Recommendations: 38M HTN, anxiety/depression admitted 02/18 for R leg pain and SOB and found to have saddle PE w/ R heart strain. He is now s/p thrombectomy. Pulmonary consulted for nocturnal hypoxemia in the setting of PE. This is most likely related to obstructive sleep apnea. This is a long-standing issue as supported by prior sleep study w/ AHI 84.9. Overnight oximetry study this hospitalization showed need for5L. No concern for underlying pulmonary disease, at this time. - outpatient sleep medicine follow up - continue nocturnal O2 Pulmonary will sign off. Chief Complaint Patient presents with Shortness of Breath Leg Pain Summary: 38M HTN, anxiety/depression admitted 02/18 for R leg pain and SOB and found to have saddle PE w/ R heart strain. He is now s/p thrombectomy. Pulmonary consulted for nocturnal hypoxemia in the setting of PE. He is on RA during the day, used BiPAP last night. Currently on RA. He is feeling well. No DOEor SOB at rest. No CP or chest tightness. No wheezing. No cough. No orthopnea or PND. He does snore. Has witnessed apneic episodes. Does not feel well rested when he wakes up. Has excessive daytime sleepiness. Prior to admission, was not overly active 2/2 depression. No recent surgery. No recent travel. No prior history of clotting disorder. His father had a DVT. No prior pulmonary hx. 10 point review of systems negative, aside from that mentioned above BP 130/77 (BP Location: Left arm) Pulse 80 Temp 97.5 ??F (36.4 ??C) (Axillary) Resp 18 [id number]% Gen: NAD HEENT: anicteric, OP clear, Mallampati IV Card: RRR Pulm: clear bilaterally Abd: soft, NTND MSK: no LE edema, no acute joint abnormalities Skin: no obvious rash Psych: flat affect Neuro: answering questions appropriately Labs: personally reviewed Imaging: personally reviewed Past Medical History: Diagnosis Date Hypertension Obese FAITH (obstructive sleep apnea) 03/24/2022 Past Surgical History: Procedure Laterality Date IR LOWER EXTREMITY VENOGRAM RIGHT 02/20/2024 IR PULMONARY ANGIOGRAM BILATERAL 02/19/2024 ORTHOPEDIC SURGERY Left 2001 left foot surgery VASECTOMY Bilateral 12/14/2018 Procedure: Bilateral vasectomy; Surgeon: Mark Miller MD; Location: [facility] OR Family History Problem Relation Age of Onset Hypertension Mother Sleep Apnea Mother Diabetes Mother Diabetes Father Hypertension Sister Social History Socioeconomic History Marital status: Spouse name: Not on file Number of children: Not on file Years of education: Not on file Highest education level: Not on file Occupational History Not on file Tobacco Use Smoking status: Never Passive exposure: Never Smokeless tobacco: Never Vaping Use Vaping status: Never Used Substance and Sexual Activity Alcohol use: Yes Drug use: No Sexual activity: Yes Partners: Female Other Topics Concern Parent/sibling w/ CABG, UT or angioplasty before 65F 55M? No Social History Narrative Not on file Social Determinants of Health Financial Resource Strain: Low Risk (02/02/2024) Received from [employer] [facility] Financial Resource Strain Difficulty of Paying Living Expenses: 3 Difficulty of Paying Living Expenses: Not on file Food Insecurity: No Food Insecurity (02/02/2024) Received from [employer] [facility] Food Insecurity Worried About Running Out of Food in the Last Year: 1 Transportation Needs: No Transportation Needs (02/02/2024) Received from [employer] [facility] Transportation Needs Lack of Transportation (Medical): 1 Physical Activity: Sufficiently Active (04/04/2023) Exercise Vital Sign Days of Exercise per Week: 7 days Minutes of Exercise per Session: 70 min Stress: Stress Concern Present (04/04/2023) [employer] [place] [employer] - Occupational Stress Questionnaire Feeling of Stress : Rather much Social Connections: Socially Integrated (02/02/2024) Received from [employer] [facility] Social Connections Frequency of Communication with Friends and Family: 0 Interpersonal Safety: Not on file Housing Stability: Low Risk (02/02/2024) [facility] Stability Unable to Pay for Housing in the Last Year: 1 Madan Dee MD Pulmonary and Critical Care Medicine [facility] * Elodia Connolly APRN ENVIRONMENTAL SERVICES SUPERVISOR - 02/21/2024 2:11 PM CDTAssociated Order(s): PSYCHIATRY IP CONSULT Images from the original note were not included. Initial Psychiatric Consult Consult date: February 21, 2024 Reason for Consult, requesting source: Severe depression Requesting source: Joshua Whitehead Labs and imaging reviewed. Patient seen and evaluated by Elodia Connolly APRN ENVIRONMENTAL SERVICES SUPERVISOR HPI: Yesika Fontaine is a 38 year old male with a history of hypertension, anxiety, and depression, who presents to the ED for R leg evaluation and shortness of breath. The patient was sent for an ultrasound by Dr. Gilmore at [facility] due to R leg pain, which started on Monday (02/14/24). An ultrasound showed a blood clot, and he was sent to the ED because they were concerned for it traveling to his lungs due to his shortness of breath upon ambulation and a slight cough. Of note, he was seen in the [facility] unit a couple weeks ago, and was hospitalized at [facility] for mental health challenges. Patient reports he is struggling and it is rough being here. He presents with a flat affect butdid deny SI, HI, AVH. He has an outpatient psychiarist and therapist and is planning on starting anoutpatient mental health program March 05 [facility]. Past Psychiatric History: Previous psychiatric admissions - [facility] Hospital[facility] was 02/01 ; seen at [facility] 01/30, 12/06 Previous commitment history - Denies. Current psychiatric provider - [facility] Current therapist - Benitez at [facility]. Patient denies current [facility] foster care case manager. Previous medication trials include Fluoxetine, Gabapentin, Risperdal, Olanzapine, Ativan Vistaril Patient denies previous ECT trials. Substance Use and History: Patient reports current use of None. Last use: NA Urine drug from admission indicates None. Substance of Choice: None Other substances used: None Blackouts/DTs/IV drug use: none Legal Consequences: None Chemical dependency treatment History: None Past Medical History: PAST MEDICAL HISTORY: Past Medical History: Diagnosis Date Hypertension Obese FAITH (obstructive sleep apnea) 03/24/2022 PAST SURGICAL HISTORY: Past Surgical History: Procedure Laterality Date IR PULMONARY ANGIOGRAM BILATERAL 02/19/2024 ORTHOPEDIC SURGERY Left 2001 left foot surgery VASECTOMY Bilateral 12/14/2018 Procedure: Bilateral vasectomy; Surgeon: Mark Miller MD; Location: OR Family History: FAMILY HISTORY: Family History Problem Relation Age of Onset Hypertension Mother Sleep Apnea Mother Diabetes Mother Diabetes Father Hypertension Sister Family Psychiatric History: unknown Social History: SOCIAL HISTORY: Social History Tobacco Use Smoking status: Never Passive exposure: Never Smokeless tobacco: Never Substance Use Topics Alcohol use: Yes [place] [address] outside of [place], [place]. Currently on leave of absence from work Physical ROS: The 10 point Review of Systems is negative other than noted in the HPI or here. Medications: Current Facility-Administered Medications Medication Dose Route Frequency Provider Last Rate Last Admin FLUoxetine (PROzac) capsule 40 mg 40 mg Oral Daily Joshua Whitehead MD 40 mg at 02/21/24 0908 risperiDONE (risperDAL) tablet 2 mg 2 mg Oral At Bedtime Joshua Whitehead MD 2 mg at 02/20/24 2142 rivaroxaban ANTICOAGULANT (XARELTO) tablet 15 mg 15 mg Oral BID w/meals Daiana Tai MD Followed by [START ON 03/11/2024] rivaroxaban ANTICOAGULANT (XARELTO) tablet 20 mg 20 mg Oral Daily with supper Daiana Tai MD sodium chloride (PF) 0.9% PF flush 3 mL 3 mL Intracatheter Q8H Joshua Whitehead MD sodium chloride (PF) 0.9% PF flush 3 mL 3 mL Intracatheter Q8H Joshua Whitehead MD Allergies: Allergies Allergen Reactions Cephalexin Hives Labs: Recent Results (from the past 48 hour(s)) EKG 12-lead, tracing only Collection Time: 02/19/24 3:43 PM Result Value Ref Range Systolic Blood Pressure mmHg Diastolic Blood Pressure mmHg Ventricular Rate 111 BPM Atrial Rate 111 BPM MS Interval 150 ms QRS Duration 100 ms QT 360 ms QTc 489 ms P Tiro 38 degrees R AXIS -21 degrees T Tiro -7 degrees Interpretation ECG Sinus tachycardia T wave abnormality, consider anterior ischemia Abnormal ECG When compared with ECG of 17-JAN-2024 15:35, T wave inversion now evident in Anterior leads Confirmed by GENERATED REPORT, COMPUTER ([id number]), online editor Jeimy Hale ([id number]) on 02/19/2024 6:00:09 PM D dimer quantitative Collection Time: 02/19/24 3:55 PM Result Value Ref Range D-Dimer Quantitative 6.32 (H) 0.00 - 0.50 ug/mL FEU Comprehensive metabolic panel Collection Time: 02/19/24 3:55 PM Result Value Ref Range Sodium 133 (L) 135 - 145 mmol/L Potassium 3.4 3.4 - 5.3 mmol/L Carbon Dioxide (CO2) 21 (L) 22 - 29 mmol/L Anion Gap 16 (H) 7 - 15 mmol/L Urea Nitrogen 23.4 (H) 6.0 - 20.0 mg/dL Creatinine 1.19 (H) 0.67 - 1.17 mg/dL GFR Estimate 80 >60 mL/min/1.73m2 Calcium 9.2 8.6 - 10.0 mg/dL Chloride 96 (L) 98 - 107 mmol/L Glucose 133 (H) 70 - 99 mg/dL Alkaline Phosphatase 59 40 - 150 U/L AST 20 0 - 45 U/L ALT 24 0 - 70 U/L Protein Total 7.1 6.4 - 8.3 g/dL Albumin 4.1 3.5 - 5.2 g/dL Bilirubin Total 1.0 <=1.2 mg/dL Troponin T, High Sensitivity Collection Time: 02/19/24 3:55 PM Result Value Ref Range Troponin T, High Sensitivity 48 (H) <=22 ng/L Blood gas venous Collection Time: 02/19/24 3:55 PM Result Value Ref Range pH Venous 7.48 (H) 7.32 - 7.43 pCO2 Venous 33 (L) 40 - 50 mm Hg pO2 Venous 42 25 - 47 mm Hg Bicarbonate Venous 25 21 - 28 mmol/L Base Excess/Deficit Venous 1.9 -3.0 - 3.0 mmol/L FIO2 21 Oxyhemoglobin Venous 81 (H) 70 - 75 % O2 Sat, Venous 82.7 (H) 70.0 - 75.0 % Nt probnp inpatient (BNP) Collection Time: 02/19/24 3:55 PM Result Value Ref Range N terminal Pro BNP Inpatient 1,998 (H) 0 - 450 pg/mL CBC with platelets and differential Collection Time: 02/19/24 3:55 PM Result Value Ref Range WBC Count 10.6 4.0 - 11.0 10e3/uL RBC Count 5.81 4.40 - 5.90 10e6/uL Hemoglobin 16.4 13.3 - 17.7 g/dL Hematocrit 46.1 40.0 - 53.0 % MCV 79 78 - 100 fL MCH 28.2 26.5 - 33.0 pg MCHC 35.6 31.5 - 36.5 g/dL RDW 13.1 10.0 - 15.0 % Platelet Count 246 150 - 450 10e3/uL % Neutrophils 75 % % Lymphocytes 10 % % Monocytes 12 % % Eosinophils 1 % % Basophils 0 % % Immature Granulocytes 1 % NRBCs per 100 WBC 0 <1 /100 Absolute Neutrophils 7.9 1.6 - 8.3 10e3/uL Absolute Lymphocytes 1.1 0.8 - 5.3 10e3/uL Absolute Monocytes 1.3 0.0 - 1.3 10e3/uL Absolute Eosinophils 0.1 0.0 - 0.7 10e3/uL Absolute Basophils 0.0 0.0 - 0.2 10e3/uL Absolute Immature Granulocytes 0.1 <=0.4 10e3/uL Absolute NRBCs 0.0 10e3/uL CT Chest Pulmonary Embolism w Contrast Collection Time: 02/19/24 6:15 PM Result Value Ref Range Radiologist flags Pulmonary embolism (AA) Heparin Unfractionated Anti Xa Level Collection Time: 02/19/24 10:47 PM Result Value Ref Range Anti Xa Unfractionated Heparin 0.24 For Reference Range, See Comment IU/mL Glucose by meter Collection Time: 02/20/24 1:34 AM Result Value Ref Range GLUCOSE BY METER POCT 115 (H) 70 - 99 mg/dL Heparin Unfractionated Anti Xa Level Collection Time: 02/20/24 5:33 AM Result Value Ref Range Anti Xa Unfractionated Heparin <0.10 For Reference Range, See Comment IU/mL Comprehensive metabolic panel Collection Time: 02/20/24 5:33 AM Result Value Ref Range Sodium 135 135 - 145 mmol/L Potassium 2.9 (L) 3.4 - 5.3 mmol/L Carbon Dioxide (CO2) 24 22 - 29 mmol/L Anion Gap 13 7 - 15 mmol/L Urea Nitrogen 20.6 (H) 6.0 - 20.0 mg/dL Creatinine 0.84 0.67 - 1.17 mg/dL GFR Estimate >90 >60 mL/min/1.73m2 Calcium 8.7 8.6 - 10.0 mg/dL Chloride 98 98 - 107 mmol/L Glucose 125 (H) 70 - 99 mg/dL Alkaline Phosphatase 53 40 - 150 U/L AST 14 0 - 45 U/L ALT 20 0 - 70 U/L Protein Total 6.4 6.4 - 8.3 g/dL Albumin 3.5 3.5 - 5.2 g/dL Bilirubin Total 1.0 <=1.2 mg/dL CBC with platelets Collection Time: 02/20/24 5:33 AM Result Value Ref Range WBC Count 8.5 4.0 - 11.0 10e3/uL RBC Count 5.06 4.40 - 5.90 10e6/uL Hemoglobin 14.1 13.3 - 17.7 g/dL Hematocrit 40.1 40.0 - 53.0 % MCV 79 78 - 100 fL MCH 27.9 26.5 - 33.0 pg MCHC 35.2 31.5 - 36.5 g/dL RDW 13.1 10.0 - 15.0 % Platelet Count 203 150 - 450 10e3/uL Magnesium Collection Time: 02/20/24 5:33 AM Result Value Ref Range Magnesium 2.2 1.7 - 2.3 mg/dL Troponin T, High Sensitivity Collection Time: 02/20/24 5:33 AM Result Value Ref Range Troponin T, High Sensitivity 41 (H) <=22 ng/L Echocardiogram Complete Collection Time: 02/20/24 12:45 PM Result Value Ref Range LVEF 60% Heparin Unfractionated Anti Xa Level Collection Time: 02/20/24 1:14 PM Result Value Ref Range Anti Xa Unfractionated Heparin <0.10 For Reference Range, See Comment IU/mL Activated clotting time celite, POCT Collection Time: 02/20/24 5:11 PM Result Value Ref Range Activated Clotting Time (Celite) POCT 140 74 - 150 seconds Potassium Collection Time: 02/21/24 12:19 AM Result Value Ref Range Potassium 3.3 (L) 3.4 - 5.3 mmol/L Heparin Unfractionated Anti Xa Level Collection Time: 02/21/24 12:19 AM Result Value Ref Range Anti Xa Unfractionated Heparin 0.29 For Reference Range, See Comment IU/mL Hemoglobin Collection Time: 02/21/24 7:34 AM Result Value Ref Range Hemoglobin 13.3 13.3 - 17.7 g/dL Basic metabolic panel Collection Time: 02/21/24 7:34 AM Result Value Ref Range Sodium 131 (L) 135 - 145 mmol/L Potassium 3.6 3.4 - 5.3 mmol/L Chloride 101 98 - 107 mmol/L Carbon Dioxide (CO2) 23 22 - 29 mmol/L Anion Gap 7 7 - 15 mmol/L Urea Nitrogen 16.9 6.0 - 20.0 mg/dL Creatinine 0.69 0.67 - 1.17 mg/dL GFR Estimate >90 >60 mL/min/1.73m2 Calcium 8.1 (L) 8.6 - 10.0 mg/dL Glucose 108 (H) 70 - 99 mg/dL Potassium Collection Time: 02/21/24 7:34 AM Result Value Ref Range Potassium 3.6 3.4 - 5.3 mmol/L Heparin Unfractionated Anti Xa Level Collection Time: 02/21/24 7:34 AM Result Value Ref Range Anti Xa Unfractionated Heparin 0.38 For Reference Range, See Comment IU/mL Glucose by meter Collection Time: 02/21/24 7:35 AM Result Value Ref Range GLUCOSE BY METER POCT 113 (H) 70 - 99 mg/dL Hemoglobin Collection Time: 02/21/24 10:04 AM Result Value Ref Range Hemoglobin 13.7 13.3 - 17.7 g/dL Physical and Psychiatric Examination: BP (!) 142/89 (BP Location: Left arm) Pulse 101 Temp 98.4 ??F (36.9 ??C) (Oral) Resp 18 SpO2 98% Weight is 0 lbs 0 oz There is no height or weight on file to calculate BMI. Physical Exam: I have reviewed the physical exam as documented by by the medical team and agree with findings and assessment and have no additional findings to add at this time. Mental Status Exam: Appearance: awake, alert and adequately groomed Attitude: cooperative Eye Contact: fair Mood: depressed Affect: intensity is flat Speech: monotonous Language: Fluent in nauruan Psychomotor Behavior: no evidence of tardive dyskinesia, dystonia, or tics Thought Process: logical, linear, and goal oriented Associations: no loose associations Thought Content: no evidence of suicidal ideation or homicidal ideation and no evidence of psychotic thought Insight: fair Judgement: intact Oriented to: time, person, and place Attention Span an d Concentration: intact Recent and Remote Memory: intact Fund of Knowledge: Appropriate Gait and Station: baseline DSM-5 Diagnosis: recurrent major depressive disorder , severe without psychosis Assessment: Yesika is a 38 year old male with history of severe depression recently with his first ip psychiatric hospitalization who presents with blood clot. Patient reports difficulty struggling with illnessbut denies suicidal ideation and is tolerating medications well. Provided recommendation for spiritual health for emotional support, patient declined at this time. He has outpatient psychiatrist, therapist and is planning on starting intensive outpatient programming later this February. Summary of Recommendations: Continue Prozac 40mg daily for antidepressant treatment. Tolerating recent increase to 40mg well thus far and awaiting therapeutic benefit. Continue Risperdal 2 mg nightly to maintain remission of psychosis Recommend restarting his MED SURG NURSE medication of 1,200mg at bedtime for insomnia Once medically stable, okay to discharge to his outpatient psychiatric programming/supports Elodia Connolly, RONNIEP- Consult/Liaison Psychiatry [facility] * Rissa Donohue - 02/21/2024 1:31 PM CDTAssociated Order(s): PHARMACY LIAISON FOR MEDICATION COVERAGE CONSULT Summary: [facility]S Xarelto covered medication $85 for 30 days supply (meeting a deductible) Patient is able to use a copay assistance cards found online to bring the final cost to $10 for 30 days supply. Patient is also eligible to use a voucher for first 30 days avil in the discharge pharmacy if needed. Thank you for allowing me to help with your patient Rissa Charanjit [facility] Pharmacy Discharge Liaison [facility]/[place] documented in this encounter ED Notes * Tiffanie Guzman RN - 02/19/2024 7:43 PM CDT [facility] ED Nurse Handoff Report ED Chief complaint: Shortness of Breath and Leg Pain ED Diagnosis: Final diagnoses: Acute deep vein thrombosis (DVT) of iliac vein of right lower extremity (H) Acute saddle pulmonary embolism with acute cor pulmonale (H) Code Status: Per admitting Allergies: Allergies Allergen Reactions Cephalexin Hives Patient Story: Pt presents to ED with shortness of breath and right leg pain. Imaging showed saddle PE and a largeblood clot in the RLE. Pt is diaphoretic and uncomfortable. Given 4mg morphine IV, heparin [id number] units/hr. Plan for IR. Focused Assessment: Neuro: Alert, oriented x 4 Respiratory: 4L O2 via oxymask Cardiology: NSR Gastrointestinal: soft, non tender, non distended Genitourinary/Renal: Musculoskeletal: moves all extremities , warms and swelling RLE Skin: Intact skin Lines: 18G LL forearm Labs Ordered and Resulted from Time of ED Arrival to Time of ED Departure D DIMER QUANTITATIVE - Abnormal Result Value D-Dimer Quantitative 6.32 (*) COMPREHENSIVE METABOLIC PANEL - Abnormal Sodium 133 (*) Potassium 3.4 Carbon Dioxide (CO2) 21 (*) Anion Gap 16 (*) Urea Nitrogen 23.4 (*) Creatinine 1.19 (*) GFR Estimate 80 Calcium 9.2 Chloride 96 (*) Glucose 133 (*) Alkaline Phosphatase 59 AST 20 ALT 24 Protein Total 7.1 Albumin 4.1 Bilirubin Total 1.0 TROPONIN T, HIGH SENSITIVITY - Abnormal Troponin T, High Sensitivity 48 (*) BLOOD GAS VENOUS - Abnormal pH Venous 7.48 (*) pCO2 Venous 33 (*) pO2 Venous 42 Bicarbonate Venous 25 Base Excess/Deficit Venous 1.9 FIO2 21 Oxyhemoglobin Venous 81 (*) O2 Sat, Venous 82.7 (*) NT PROBNP INPATIENT - Abnormal N terminal Pro BNP Inpatient 1,998 (*) CBC WITH PLATELETS AND DIFFERENTIAL WBC Count 10.6 RBC Count 5.81 Hemoglobin 16.4 Hematocrit 46.1 MCV 79 MCH 28.2 MCHC 35.6 RDW 13.1 Platelet Count 246 % Neutrophils 75 % Lymphocytes 10 % Monocytes 12 % Eosinophils 1 % Basophils 0 % Immature Granulocytes 1 NRBCs per 100 WBC 0 Absolute Neutrophils 7.9 Absolute Lymphocytes 1.1 Absolute Monocytes 1.3 Absolute Eosinophils 0.1 Absolute Basophils 0.0 Absolute Immature Granulocytes 0.[address] Chest Pulmonary Embolism w Contrast Final Result Abnormal IMPRESSION: 1. Stents of pulmonary embolism bilaterally including large saddle embolus. Pulmonary arteries and right ventricle appear mildly enlarged compatible with elevated right heart pressure. [Critical Result: Pulmonary embolism] Finding was identified on 02/19/2024 6:[address] Trujillo was contacted by me on 02/19/2024 6:44 PM CDT. IR Pulmonary Angiogram Bilateral (Results Pending) Treatments and/or interventions provided: Medications heparin 25,000 units in 0.45% NaCl 250 mL ANTICOAGULANT infusion (1,800 Units/hr Intravenous Rate/Dose Verify 02/19/241924) morphine (PF) injection 4 mg (4 mg Intravenous $Given 02/19/241922) heparin ANTICOAGULANT loading dose for HIGH INTENSITY TREATMENT* Give BEFORE starting heparin infusion (8,000 Units Intravenous $Given 02/19/24 181) iopamidol (ISOVUE-370) solution 83 mL (83 mLs Intravenous $Given 02/19/24 1800) sodium chloride 0.9 % bag 100mL (100 mLs Intravenous $Given 02/19/24 1759) Patient's response to treatments and/or interventions: Resting comfortably To be done/followed up on inpatient unit: See any in-patient orders Does this patient have any cognitive concerns?: none Activity level - Baseline/Home: Independent Activity Level - Current: Total Care Patient's Preferred language: Chinese Industry Analyst Needed?: No Isolation: None Infection: Not Applicable Patient tested for COVID 19 prior to admission: NO Bariatric?: Yes Vital Signs: Vitals: 02/19/24 1535 02/19/24 1900 02/19/24 1930 BP: 109/65 95/70 115/70 Pulse: 109 102 102 Resp: 28 20 27 Temp: 98 ??F (36.7 ??C) TempSrc: Oral SpO2: 94% 94% 95% Cardiac Rhythm: sinus Was the PSS-3 completed: Yes Family Comments: present For the majority of the shift this patient's behavior was Green. Behavioral interventions performed were ED NURSE PHONE NUMBER: *[id number] * Jeimy Hale - 02/19/2024 4:54 PM CDT Bed: ED09 Expected date: Expected time: Means of arrival: Comments: triage * Fco Lozoya RN - 02/19/2024 3:38 PM CDT Images from the original note were not included. Pt arrives through triage c/o SOB and R leg pain for the past 3-5 days, pt had an US today which stated he had a blood clot, ABCD intact. Triage Assessment (Adult) Row Name 02/19/24 1537 Triage Assessment Airway WDL WDL Respiratory WDL Respiratory WDL X SOB Skin Circulation/Temperature WDL Skin Circulation/Temperature WDL WDL Cardiac WDL Cardiac WDL X;rhythm Pulse Rate & Regularity tachycardic Peripheral/Neurovascular WDL Peripheral Neurovascular WDL WDL Cognitive/Neuro/Behavioral WDL Cognitive/Neuro/Behavioral WDL WDL * Trigger, Fco Maddox MD - 02/19/2024 3:18 PM CDT Emergency Department Note History of Present Illness Chief Complaint Shortness of Breath and Leg Pain HPI Yesika Fontaine is a 38 year old male with a history of hypertension, anxiety, and depression, who presents to the ED for R leg evaluation and shortness of breath. The patient was sent for an ultrasound by Dr. Muñoz at [facility] due to R leg pain, which onset on Monday (02/14/24). Today at ultrasound they found a blood clot, and sent him to the ED because they were concerned for it traveling to his lungs. He has shortness of breath upon ambulation and a slight cough. The patient denies any chest pain or fever. He has had no recent injury to his R leg. Of note, he was seen in the [facility] unit a couple weeks ago, and was hospitalized at [facility] for mental health challenges. Independent Historian present at bedside and corroborates the above. Review of External Notes I reviewed the office visit note from today, 02/19/24, where he was seen for leg pain and depression. Past Medical History Medical History and Problem List Hypertension FAITH (obstructive sleep apnea) Depression Anxiety SI Medications Amlodipine Fluoxetine Gabapentin Hydroxyzine Lorazepam Lisinopril-hydrochlorothiazide Onalzapine Risperidone Trazodone Surgical History Left foot surgery Vasectomy Physical Exam Patient Vitals for the past 24 hrs: BP Temp Temp src Pulse Resp SpO2 02/19/242114 -- -- -- 94 11 93 % 02/19/242109 (!) 88/57 -- -- 96 (!) 34 93 % 02/19/242104 (!) 87/58 -- -- 92 28 93 % 02/19/24 2100 103/68 -- -- 94 (!) 32 94 % 02/19/242054 101/69 -- -- 96 28 95 % 02/19/242049 100/67 -- -- 96 13 97 % 02/19/242044 106/72 -- -- 98 27 96 % 02/19/242039 110/76 -- -- 101 22 96 % 02/19/242034 115/70 -- -- 97 26 97 % 02/19/242029 108/75 -- -- 101 28 97 % 02/19/242024 115/70 -- -- 100 26 97 % 02/19/242019 105/74 -- -- 98 15 96 % 02/19/242014 100/79 -- -- 100 16 97 % 02/19/242009 111/76 -- -- 104 17 97 % 02/19/241929 115/70 -- -- 102 27 95 % 02/19/241899 95/70 -- -- 102 20 94 % 02/19/24 1535 109/65 98 ??F (36.7 ??C) Oral 109 28 94 % Physical Exam General: Alert, interactive Head: Scalp is atraumatic Eyes: The pupils are equal, round, and reactive to light EOM's intact No scleral icterus ENT: Nose: The external nose is normal Ears: External ears are normal Mouth/Throat: Mucus membranes are moist Neck: Normal range of motion. There is no rigidity. Trachea is in the midline CV: Tachycardia, edema and tenderness to the right lower extremity Resp: Breath sounds are clear bilaterally Non-labored, no retractions or accessory muscle use GI: Abdomen is soft, no distension, no tenderness. MS: Normal strength in all 4 extremities Tenderness in right lower extremity Skin: Warm and dry, No rash or lesions noted. Neuro: Strength 5/5 x4. Sensation intact In all 4 extremities. GCS: 15 Psych: Awake. Alert. Flat affect. Appropriate interactions. Diagnostics Lab Results Labs Ordered and Resulted from Time of ED Arrival to Time of ED Departure D DIMER QUANTITATIVE - Abnormal Result Value D-Dimer Quantitative 6.32 (*) COMPREHENSIVE METABOLIC PANEL - Abnormal Sodium 133 (*) Potassium 3.4 Carbon Dioxide (CO2) 21 (*) Anion Gap 16 (*) Urea Nitrogen 23.4 (*) Creatinine 1.19 (*) GFR Estimate 80 Calcium 9.2 Chloride 96 (*) Glucose 133 (*) Alkaline Phosphatase 59 AST 20 ALT 24 Protein Total 7.1 Albumin 4.1 Bilirubin Total 1.0 TROPONIN T, HIGH SENSITIVITY - Abnormal Troponin T, High Sensitivity 48 (*) BLOOD GAS VENOUS - Abnormal pH Venous 7.48 (*) pCO2 Venous 33 (*) pO2 Venous 42 Bicarbonate Venous 25 Base Excess/Deficit Venous 1.9 FIO2 21 Oxyhemoglobin Venous 81 (*) O2 Sat, Venous 82.7 (*) NT PROBNP INPATIENT - Abnormal N terminal Pro BNP Inpatient 1,998 (*) CBC WITH PLATELETS AND DIFFERENTIAL WBC Count 10.6 RBC Count 5.81 Hemoglobin 16.4 Hematocrit 46.1 MCV 79 MCH 28.2 MCHC 35.6 RDW 13.1 Platelet Count 246 % Neutrophils 75 % Lymphocytes 10 % Monocytes 12 % Eosinophils 1 % Basophils 0 % Immature Granulocytes 1 NRBCs per 100 WBC 0 Absolute Neutrophils 7.9 Absolute Lymphocytes 1.1 Absolute Monocytes 1.3 Absolute Eosinophils 0.1 Absolute Basophils 0.0 Absolute Immature Granulocytes 0.1 Absolute NRBCs 0.[address] Chest Pulmonary Embolism w Contrast Final Result Abnormal IMPRESSION: 1. Stents of pulmonary embolism bilaterally including large saddle embolus. Pulmonary arteries and right ventricle appear mildly enlarged compatible with elevated right heart pressure. [Critical Result: Pulmonary embolism] Finding was identified on 02/19/2024 6:[address] Trujillo was contacted by me on 02/19/2024 6:44 PM CDT. IR Pulmonary Angiogram Bilateral (Results Pending) US LOWER EXTREMITY VENOUS DUPLEX RIGHT 02/19/2024 3:09 PM IMPRESSION: Extensive deep vein thrombosis in the [...] this patient was also short of breath. EKG ECG taken at 1543 Sinus tachycardia Rate 111 bpm. MS interval 150 ms. QRS duration 100 ms. QT/QTc 360/489 ms. T wave inversion in the anterior leads Independent Interpretation Review of the CT pulmonary angiogram demonstrates extensive bilateral PE ED Course Medications Administered Medications heparin 25,000 units in 0.45% NaCl 250 mL ANTICOAGULANT infusion (1,800 Units/hr Intravenous Rate/Dose Verify 02/19/241924) morphine (PF) injection 4 mg (4 mg Intravenous $Given 02/19/241922) heparin 2 Units/mL 0.9% NaCl (1000 mL) (5 Bags TABLE SOLN $Given 02/19/242033) midazolam (VERSED) injection 0.5-2 mg (has no administration in time range) flumazenil (ROMAZICON) injection 0.2 mg (has no administration in time range) fentaNYL (PF) (SUBLIMAZE) injection 25-50 mcg (25 mcg Intravenous $Given 02/19/242057) naloxone (NARCAN) injection 0.2 mg (has no administration in time range) Or naloxone (NARCAN) injection 0.4 mg (has no administration in time range) Or naloxone (NARCAN) injection 0.2 mg (has no administration in time range) Or naloxone (NARCAN) injection 0.4 mg (has no administration in time range) ondansetron (ZOFRAN) injection 4 mg (has no administration in time range) heparin ANTICOAGULANT loading dose for HIGH INTENSITY TREATMENT* Give BEFORE starting heparin infusion (8,000 Units Intravenous $Given 02/19/241811) iopamidol (ISOVUE-370) solution 83 mL (83 mLs Intravenous $Given 02/19/241799) sodium chloride 0.9 % bag 100mL (100 mLs Intravenous $Given 02/19/241758) lidocaine 1 % 1-30 mL (10 mLs Intradermal $Given by Other 02/19/242034) iopamidol (ISOVUE-300) IV solution 61% 100 mL (24 mLs Intravenous $Given 02/19/242106) heparin (porcine) injection 4,000 Units (4,000 Units Intravenous $Given 02/19/242052) Procedures Procedures Discussion of Management I discussed case with Dr. Edouard from interventional radiology regarding the patient's DVT and pulmonary embolism, he feels the patient is amenable to thrombectomy and will take the patient to the IR lab I discussed case with Dr. Whitehead from the hospitalist service who is in agreement with admission following his thrombectomy. ED Course ED Course as of 02/19/242127Feb 19, 20241535 I obtained the history and examined the patient as above. Optional/Additional Documentation Stress adjustment disorders Medical Decision Making / Diagnosis MIPS CT for PE was ordered because the patient had an abnormal d-dimer. MIREILLE Yesika Fontaine is a 38 year old male presenting from an outside clinic with a known DVT which is quite extensive. Patient also has dyspnea and I had high clinical concern for pulmonary embolism, subsequently the above workup was undertaken unfortunately demonstrating a saddle pulmonary embolism. Hewas initiated on heparin prior to this diagnosis given the known DVT. There are signs of right heart strain with an elevated troponin and I discussed case with interventional radiology who is in agreement with thrombectomy. Patient will be admitted to the [facility] following the procedure. Critical care time exclusive of procedures is 40 minutes during this time there was bedside evaluation, review of all side notes, physician consultation, management of the heparin, family consultation, documentation Disposition The patient was admitted to the hospital. Diagnosis ICD-10-CM 1. Acute deep vein thrombosis (DVT) of iliac vein of right lower extremity (H) I82.421 IR PulmonaryAngiogram Bilateral IR Pulmonary Angiogram Bilateral 2. Acute saddle pulmonary embolism with acute cor pulmonale (H) I26.02 Discharge Medications Current Discharge Medication List Scribe Disclosure: I, Cesilia Colbert, am serving as a scribe at 3:40 PM on 02/19/2024 to document services personally performed by Fco Trujillo MD based on my observations and the provider's statements to me. Fco Trujillo MD 02/19/242129 documented in this encounter Miscellaneous Notes * Plan of Care - Tha Garibay RN - 02/23/2024 3:01 PM CDT Goal Outcome Evaluation: Pt here with Acute saddle PE and DVT, s/p thrombectomy x2 to remove large blood cloths. A&O x4.VSS ex. LS diminished, decrease oxygenation while asleep, possibly due to sleep apnea, CPAP at HS helps. reg diet, thin liquids. Takes pills whole with water. Up independently. Denies pain. Pt scoring green on the Aggression Stop Light Tool. Plan to discharge home as soon as all discharge meds are ready and some meds clarifications completed, discharge pharmacy aware. Follow up with outpatient test per AVS. is here waiting to take patient. * Plan of Care - Herbert Gongora RN - 02/23/2024 5:48 AM CDT A+Ox4 VSS, on CPAP overnight. Lung sounds diminished. R groin and R popliteal sites soft, dressing CDI. Denies pain. Bowels active, flatus+, no BM. Voiding adequately. Tolerating diet. Up independently in room. * Plan of Care - Erin Godinez, PT - 02/22/2024 3:55 PM CDT Physical Therapy Discharge Summary Reason for therapy discharge: All goals and outcomes met, no further needs identified. Progress towards therapy goal(s). See goals on Care Plan in [facility] electronic health record for goal details. Goals met per clinical judgement/pt/RN report. Therapy recommendation(s): No further therapy is recommended. Attempted to see pt today. RN reports pt has been up ambulating in the halls INDly on room air. [place] pt at bedside. Pt denies any further concerns with mobility, reports much improved today. Pt in agreement with discharge IP PT services. * Plan of Care - Herbert Gongora RN - 02/22/2024 6:09 AM CDT A+Ox4 VSS, on 5L oxymask while sleeping and room air while awake. Tele NSR. Lung sounds diminished.R groin and R popliteal sites soft, dressings CDI. Denies pain. Bowels active, flatus+, no BM. Voiding adequately. Tolerating diet. Up SBA * Plan of Care - Shiloh Watson RN - 02/21/2024 6:55 AM CDT Pt A&O x4. VS WDL on 2-3 NC while awake and 4L oxymask while sleeping. Periods of apnea noted while sleeping and pt would desat at times. Tele shows SR/ST. Monitoring sheath sites from thrombectomy. R groin and R popliteal sites both WDL with no bleeding to dressing and no hematoma felt. Pt having some discomfort after keeping leg straight, received prn Tylenol, which was effective. BS+, -BM. Voiding using urinal. Repositioning in bed often, occasionally requiring assistance. Pt resting between cares. He received prn trazodone at HS. Plan: Continue current plan of care * Plan of Care - Jennifer Smith RN - 02/20/2024 6:55 PM CDT AOx4. Flat affect. PIV infusing heparin gtt @ 2750, redraw at 2338. Other PIV infusing NS @ 100 mL/hr. Tele: SR/ST. VSS except intermittently tachycardic, on 3L NC. 2g Na diet. Denies pain. Voiding without issue in urinal, no BM this shift. BS+. L heel cracked, blanchable redness to back and coccyx. R groin site WNL. R posterior popliteal site WNL, CMS+. Bedrest to BLE until 2100 -see post op order set. Potassium replaced, redraw at 0128. Discharge to home when medically ready. Continue to monitor and follow POC. * IR Note - Omero Kimble MD - 02/20/2024 6:43 PM CDT [facility] POST PROCEDURE NOTE Procedure: RLE Femoral venous thrombectomy. Large clot burden removed, though no thrombus in the Iliac venous system. Good result at completion, though no inflow from occluded below knee popliteal veins and calf veins. Continue aggressive heparinization. Pursestring suture applied at the access site, to be removed in 1-2 days. Physician: Juanita Type of Sedation: Sedation Estimated Blood Loss: 125 ml Complications/Reactions: None Findings: Please see above. Plan: Continue aggressive heparinization. Suture removal in 1-2 days. Omero Kimble MD 02/20/2024, 6:43 PM * IR Note - Ravinder Uribe RN - 02/20/2024 3:55 PM CDT Interventional Radiology Intra-procedural Nursing Note Patient Name: Yesika Fontaine Today's Date: February 20, 2024 Procedure: right lower extremity venogram with moderate sedation Start time: 1605 End time: 1745 Report provided to: MARÍA Rodriguez RN Note: Patient entered Interventional Radiology Suite number 2 via cart. Patient awake, alert and oriented. Assisted onto procedural table in prone position. Prepped and draped. Dr. Kimble in room. Time out and procedure started. Vital signs stable. Telemetry reading sinus tachycardia. Procedure well tolerated by patient without complications. Procedure end with debrief by Dr. Kimble. Manual pressure applied, Closure Device until hemostasis achieved. Gauze, tagaderm, QuickClot dressing applied to Right Popliteal access interventional procedure access site. Bedrest for 3 hours. Administered medication totals: Lidocaine 1% 10 mL Intradermal Heparin 4000 Units IV Versed 5mg IVP Fentanyl 250 mcg IVP Last dose of sedation administered at 1717. * Pre-Procedure - Herbert Chisholm PA-C - 02/20/2024 2:39 PM CDT GENERAL PRE-PROCEDURE: Procedure: Right lower extremity venogram with mechanical thrombectomy Written consent obtained?: Yes Risks and benefits: Risks, benefits and alternatives were discussed Consent given by: Patient Patient states understanding of procedure being performed: Yes Patient's understanding of procedure matches consent: Yes Procedure consent matches procedure scheduled: Yes Expected level of sedation: Moderate Appropriately NPO: Yes ASA Class: 3 Mallampati : Grade 2- soft palate, base of uvula, tonsillar pillars, and portion of posterior pharyngeal wall visible Lungs: Lungs clear with good breath sounds bilaterally Heart: Normal heart sounds and rate History & Physical reviewed: History and physical reviewed and no updates needed Statement of review: I have reviewed the lab findings, diagnostic data, medications, and the plan for sedation Herbert Chisholm PA-C Interventional Radiology [phone] (IR) *[phone] ([facility] Office) * Plan of Care - Shiloh Watson RN - 02/20/2024 6:53 AM CDT Pt A&O x4, though drowsy and lethargic shortly after arrival to room. He was admitted followingpulmonary angiogram with thrombectomy that was performed by IR. present at bedside on arrival to floor. Pt bedrest with legs straight until 3 hours were up and then assisted repositioning or weight shifting at times. Tele shows SR. Denies pain. L AC with heparin at 2350 units/hr, increased after receiving bolus dose x2 d/t sub-therapeutic levels per heparin protocol; verified with pharmacistregarding bolus administration as he had previously received bolus dose. R forearm with NS infusing. Voiding using urinal, BS+, -BM. Crack to L heel on 2 RN skin check, otherwise no other skin concerns. CMS intact with weak BLE pulses, unchanged since admission. Pt denies, numbness, pain, or tingling. Sheath site with transparent dressing with gauze CDI, no hematoma noted. Pt has been in bed through the shift. He has repeated requests for water multiple times to many people, though he is NPO without exception currently. Mouth swabs provided frequently. Current potassium level this am was 2.9. Plan: Remain NPO for possible DVT thrombectomy today; Monitor sheath site for bleeding; Follow RN managed Heparin protocol per order; Pt scored low-risk for suicide screening, monitor for any changes, and follow low-risk interventions * Pre-Procedure - Nas Edouard MD - 02/19/2024 8:03 PM CDT GENERAL PRE-PROCEDURE: Procedure: PE thrombectomy Date/Time: 02/19/2024 8:03 PM Risks and benefits: Risks, benefits and alternatives were discussed Consent given by: Patient Patient states understanding of procedure being performed: Yes Patient's understanding of procedure matches consent: Yes Procedure consent matches procedure scheduled: Yes Expected level of sedation: Moderate Appropriately NPO: Yes ASA Class: 2 Mallampati : Grade 2- soft palate, base of uvula, tonsillar pillars, and portion of posterior pharyngeal wall visible Lungs: Lungs clear with good breath sounds bilaterally Heart: Normal heart sounds and rate History & Physical reviewed: History and physical reviewed and no updates needed Statement of review: I have reviewed the lab findings, diagnostic data, medications, and the plan for sedation * IR Note - Lavonne Simon RN - 02/19/2024 7:54 PM CDT Interventional Radiology Intra-procedural Nursing Note Patient Name: Yesika Fontaine Today's Date: February 19, 2024 Procedure: pulmonary angiogram with mechanical thrombectomy with moderate sedation Start time: 2029 End time: 2107 Report provided to: [facility] RN Patient depart time and location: 2119 to [facility] Note: Patient entered Interventional Radiology Suite number 1 via cart. Patient awake, alert and oriented. Assisted onto procedural table in supine position. Prepped and draped. Dr. Edouard in room. Time out and procedure started. Vital signs stable. Patient drowsy/lethargic on arrival, but responsive and answering questions appropriately. Telemetry reading normal sinus rhythm. Procedure well tolerated by patient without complications. Procedure end with debrief by Dr. Edouard. Manual pressure applied until hemostasis achieved. Gauze/Tegaderm dressing applied to right groin interventional procedure access site. Bedrest for 3 hours until 0000. Administered medication totals: Lidocaine 1% 10 mL Intradermal Heparin 4000 Units IVP Fentanyl 25 mcg IVP Last dose of sedation administered at 2057. * Pharmacy-Admission Medication History - Clemencia Laboy RPH - 02/19/2024 7:44 PM CDT Pharmacist Admission Medication History Admission medication history is complete. The information provided in this note is only as accurateas the sources available at the time of the update. Information Source(s): Patient, Family member, Prescription bottles, and [facility] in-person Pertinent Information: None Changes made to MED SURG NURSE medication list: Added: None Deleted: olanzaprine Changed: Gabapentin 800mg at bedtime to 1200mg at bedtime Allergies reviewed with patient and updates made in EHR: yes Medication History Completed By: Clemencia Laboy RPH 02/19/2024 7:44 PM MED SURG NURSE Med List Medication Sig Last Dose amLODIPine (NORVASC) 10 MG tablet TAKE 1 TABLET DAILY (OFFICE VISIT NEEDED PRIOR TO ADDITIONAL REFILLS) 02/19/2024 at am FLUoxetine (PROZAC) 40 MG capsule Take 40 mg by mouth daily 02/19/2024 at am gabapentin (NEURONTIN) 600 MG tablet Take 1,200 mg by mouth at bedtime 02/18/2024 at hs hydrOXYzine (VISTARIL) 50 MG capsule Take 50 mg by mouth 3 times daily as needed for anxiety lisinopril-hydrochlorothiazide (ZESTORETIC) 20-25 MG tablet TAKE 2 TABLETS DAILY 02/19/2024 at am LORazepam (ATIVAN) 1 MG tablet Take 1 mg by mouth daily as needed for anxiety potassium chloride misa ER (KLOR-CON M10) 10 MEQ CR tablet Take 10 mEq by mouth daily 02/19/2024 at am risperiDONE (RISPERDAL) 2 MG tablet Take 1 tablet by mouth at bedtime 02/18/2024 at hs traZODone (DESYREL) 100 MG tablet Take 100 mg by mouth at bedtime 02/18/2024 at hs documented in this encounter Plan of Treatment Upcoming Encounters Date Type Department Care Team (Late st Contact Info) Description 04/01/2024 2:00 PM CDT Appointment [facility] [address] [place] [address] [facility] Kimble [facility] [address] [place] [address] 04/01/2024 2:40 PM CDT Office Visit [facility] [place] [address] [place] [phone] Omero Kimble MD [facility] [address] [place] [address] 04/09/2024 2:00 PM CDT Office Visit [facility] [address] [place] [phone] Valentin Muñoz MD [address] [facility] [place] [phone] Roro Acevedo PA-C [address] [place], [place] [phone] 06/18/2024 12:00 PM CDT Virtual Visit [facility] [place] [address] [place] [address] Josephine Krishnan PA-C [address] [place] [id number] Scheduled Referrals Name Type Priority Associated Diagnoses Order Schedule Primary Care - Care Coordination Referral Referral Routine: Next available opening Acute saddle pulmonary embolism with acute cor pulmonale (H) Expected: 02/21/2024 (Approximate), Expires: 02/20/2025 documented as of this encounter Procedures Procedure Name Priority Date/Time Associated Diagnosis Comments POTASSIUM Timed 02/22/2024 6:21 PM CDT HEMOGLOBIN Routine 02/22/2024 6:24 AM CDT BASIC METABOLIC PANEL Routine 02/22/2024 6:24 AM CDT BLOOD GAS VENOUS STAT 02/21/2024 3:39 PM CDT HEMOGLOBIN STAT 02/21/2024 10:04 AM CDT GLUCOSE BY METER Routine 02/21/2024 7:35 AM CDT HEPARIN UNFRACTIONATED ANTI XA LEVEL Timed 02/21/2024 7:34 AM CDT POTASSIUM Timed 02/21/2024 7:34 AM CDT HEMOGLOBIN Routine 02/21/2024 7:34 AM CDT BASIC METABOLIC PANEL Routine 02/21/2024 7:34 AM CDT HEPARIN UNFRACTIONATED [...] HIGH SENSITIVITY Add-On 02/20/2024 5:33 AM CDT HEPARIN UNFRACTIONATED ANTI XA LEVEL Timed 02/20/2024 5:33 AM CDT MAGNESIUM Add-On 02/20/2024 5:33 AM CDT COMPREHENSIVE METABOLIC PANEL Routine 02/20/2024 5:33 AM CDT CBC WITH PLATELETS Routine 02/20/2024 5: 33 AM CDT GLUCOSE BY METER Routine 02/20/2024 1:34 AM CDT HEPARIN UNFRACTIONATED ANTI XA LEVEL Timed 02/19/2024 10:47 PM CDT IR PULMONARY ANGIOGRAM BILATERAL STAT 02/19/2024 9:06 PM CDT Acute deep vein thrombosis (DVT) of iliac vein of right lower extremity (H) CT CHEST PULMONARY EMBOLISM W CONTRAST STAT 02/19/2024 6:15 PM CDT CBC WITH PLATELETS AND DIFFERENTIAL STAT 02/19/2024 3:55 PM CDT TROPONIN T, HIGH SENSITIVITY STAT 02/19/2024 3:55 PM CDT CBC WITH PLATELETS & DIFFERENTIAL STAT 02/19/2024 3:55 PM CDT NT PROBNP INPATIENT STAT 02/19/2024 3 :55 PM CDT D DIMER QUANTITATIVE STAT 02/19/2024 3:55 PM CDT COMPREHENSIVE METABOLIC PANEL STAT 02/19/2024 3:55 PM CDT BLOOD GAS VENOUS STAT 02/19/2024 3:55 PM CDT EKG 12-LEAD, TRACING ONLY STAT 02/19/2024 3:43 PM CDT documented in this encounter Results * Potassium (02/22/2024 6:21 PM CDT) [facility] Potassium 3.8 3.4 - 5.3 mmol/L 02/22/2024 6:56 PM CDT LABORATORY Blood STRUCTURE OF FINGER OF LEFT HAND / Unknown Capillary / Unknown 02/22/2024 6:21 PM CDT 02/22/2024 6:40 PM CDT Catherine Wilburn DO LAB - BLOOD O RDERABLES LABORATORY [facility] [address], [address] [place] [address], [facility] [phone] * (ABNORMAL) Hemoglobin (02/22/2024 6:24 AM CDT) Hemoglobin 12.2(L) 13.3 - 17.7 g/dL 02/22/2024 7:04 AM CDT LABORATORY Blood STRUCTURE OF LEFT HAND / Unknown Venipuncture / Unknown 02/22/2024 6:24 AM CDT 02/22/2024 6:58 AM CDT Daiana Tai MD LAB - BLOOD ORDERABL ES Performing Organization Address City/[facility]/ZIP Co de Phone Number LABORATORY [facility] [address], [address] [place] [address], [facility] [phone] * (ABNORMAL) Basic metabolic panel (02/22/2024 6:24 AM CDT) Sodium 134(L) 135 - 145 mmol/L 02/22/2024 [...] 02/22/2024 7:31 AM CDT LABORATORY Comment:eGFR calculated usin 2020 CKD-EPI equation. Calcium 8.2(L) 8.6 - 10.0 mg/dL 02/22/2024 7:31 AM CDT LABORATORY Glucose 99 70 - 99 mg/dL 02/22/2024 7:31 AM CDT LABORATORY Blood STRUCTURE OF LEFT HAND / Unknown Venipuncture / Unknown 02/22/2024 6:24 AM CDT 02/22/2024 6:58 AM CDT Daiana Tai MD LAB - BLOOD ORDERABL ES LABORATORY [facility] [address], [address] [place] [address], [facility] [phone] * (ABNORMAL) Blood gas venous (02/21/2024 3:39 PM CDT) pH Venous 7.45(H) 7.32 - 7.43 02/21/2024 [...] - BLOOD ORDERABL ES Performing Organization Address City/[facility]/ZIP Co de Phone Number LABORATORY [facility] [address], [address] [place] [address], [place] [phone] * Hemoglobin (02/21/2024 10:04 AM CDT) Hemoglobin 13.7 13.3 - 17.7 g/dL 02/21/2024 10:27 AM CDT LABORATORY Blood STRUCTURE OF LEFT HAND / Unknown Venipuncture / Unknown 02/21/2024 10:04 AM CDT 02/21/2024 10:23 AM CDT Daiana Tai MD LAB - BLOOD ORDERABL ES Performing Organization Address City/[facility]/ZIP Co de Phone Number LABORATORY [facility] [address], [address] [place] [address], [facility] [phone] * (ABNORMAL) Glucose by meter (02/21/2024 7:35 AM CDT) GLUCOSE BY METER POCT 113(H) 70 - 99 mg/dL 02/21/2024 7:42 AM CDT LABORATORY POC Blood, Capillary BLOOD SPECIMEN / Unknown 02/21/2024 7:35 AM CDT 02/21/2024 7:42 AM CDT Joshua Whitehead MD LAB - BEAKER POCT LABORATORY POC [facility] [address], [address] [place] [address], [place] * Heparin Unfractionated Anti Xa Level (02/21/2024 7:34 AM CDT) Anti Xa Unfractionated Heparin 0.38 For Reference [...] Whitehead MD LAB - BLOOD ORDERAB LES [facility] [address], [address] [address], [facility] [phone] * Potassium (02/21/2024 7:34 AM CDT) [facility] Potassium 3.6 3.4 - 5.3 mmol/L 02/21/2024 8:08 AM CDT LABORATORY Blood STRUCTURE OF LEFT HAND / Unknown Venipuncture / Unknown 02/21/2024 7:34 AM CDT 02/21/2024 7:41 AM CDT Joshua Whitehead MD LAB - BLOOD ORDERAB LES [facility] [address], [address] [place] [address], [facility] [phone] * (ABNORMAL) Basic metabolic panel (02/21/2024 7:34 AM CDT) Sodium 131(L) 135 - 145 mmol/L 02/21/2024 8:08 AM CDT LABORATORY Potassium 3.6 3.4 - 5.3 mmol/L 02/21/2024 8:08 AM CDT LABORATORY Chloride 101 98 - 107 mmol/L 02/21/2024 8:08 AM CDT LABORATORY Carbon Dioxide (CO2) 23 22 - 29 mmol/L 02/21/2024 8:08 AM CDT LABORATORY Anion Gap 7 7 - 15 mmol/L 02/21/2024 8:08 AM CDT LABORATORY Urea Nitrogen 16.9 6.0 - 20.0 mg/dL 02/21/2024 8:08 AM CDT LABORATORY Creatinine 0.69 0.67 - 1.17 mg/dL 02/21/2024 8:08 AM CDT LABORATORY GFR Estimate >90 >60 mL/min/1.7 3m2 02/21/2024 8:08 AM CDT LABORATORY Comment:eGFR calculated us2020 CKD-EPI equation. Calcium 8.1(L) 8.6 - 10.0 mg/dL 02/21/2024 8:08 AM CDT LABORATORY Glucose 108(H) 70 - 99 mg/dL 02/21/2024 8:08 AM CDT LABORATORY Blood STRUCTURE OF LEFT HAND / Unknown Venipuncture / Unknown 02/21/2024 7:34 AM CDT 02/21/2024 7:41 AM CDT Daiana Tai MD LAB - BLOOD ORDERABL ES LABORATORY [facility] [address], [address] [place] [address], [facility] [phone] * Hemoglobin (02/21/2024 7:34 AM CDT) Hemoglobin 13.3 13.3 - 17.7 g/dL 02/21/2024 7:44 AM CDT LABORATORY Blood STRUCTURE OF LEFT HAND / Unknown Venipuncture / Unknown 02/21/2024 7:34 AM CDT 02/21/2024 7:41 AM CDT Daiana Tai MD LAB - BLOOD ORDERABL ES LABORATORY [facility] [address], [address] [place] [address], [facility] [phone] * Heparin Unfractionated Anti Xa Level (02/21/2024 12:19 AM CDT) Anti Xa Unfractionated Heparin 0.29 For Reference Range, See Comment IU/mL 02/21/2024 1:32 AM CDT LABORATORY Blood STRUCTURE OF LEFT HAND / Unknown Venipuncture / Unknown 02/21/2024 12:19 AM CDT 02/21/2024 12:23 AM CDT Narrative LABORATORY - 02/21/2024 1:32 AM CDT Therapeutic Range: UFH: 0.25-0.50 IU/mL for low intensity dosing, 0.30-0.70 IU/mL for high intensity dosing DVT and PE. This test is not validated for other direct factor X inhibitors (e.g. rivaroxaban, apixaban, edoxaban, betrixaban, fondaparinux) and should not be used for monitoring of other medications. Joshua Whitehead MD LAB - BLOOD ORDERAB LES LABORATORY [facility] [address], [address] [address], [facility] [phone] * (ABNORMAL) Potassium (02/21/2024 12:19 AM CDT) Potassium 3.3(L) 3.4 - 5.3 mmol/L 02/21/2024 12:47 AM CDT LABORATORY Blood STRUCTURE OF LEFT HAND / Unknown Venipuncture / Unknown 02/21/2024 12:19 AM CDT 02/21/2024 12:24 AM CDT Daiana Tai MD LAB - BLOOD ORDERABL ES [facility] [address], [address] [place] [address], [place] [phone] * IR Lower Extremity Venogram Right (02/20/2024 [...] be removed in one to two days. OMERO KIMBLE MD Narrative 02/23/2024 7:51 AM CDT [...] popliteal vein. Over series of maneuvers, 6 Tongan vascular sheath was placed. Berenstein catheter was placed in the popliteal vein, femoral vein, common femoral vein, common iliac vein, and IVC where venograms were performed. Catheter was then used to advance a super stiff Amplatz wire to the ipsilateral subclavian vein. 13 Tongan sheath was then placed and 8 mm [...] vein via the popliteal vein. Procedure Note Omero Kimble MD - 02/23/2024 INTERVENTIONAL RADIOLOGY RIGHT [...] popliteal vein. Over series of maneuvers, 6 Tongan vascular sheath was placed. Berenstein catheter was placed in the popliteal vein, femoral vein, common femoral vein, common iliac vein, and IVC where venograms were performed. Catheter was then used to advance a super stiff Amplatz wire to the ipsilateral subclavian vein. 13 Tongan sheath was then placed and 8 mm [...] be removed in one to two days. OMERO KIMBLE MD Joshua Whitehead MD G IR ORDERABLES * Activated clotting time celite, POCT (02/20/2024 5:11 PM CDT) [facility] Activated Clotting Time (Celite) POCT 140 74 - 150 seconds 02/20/2024 5:45 PM CDT LABORATORY POC Blood, venous BLOOD SPECIMEN / Unknown 02/20/2024 5:11 PM CDT 02/20/2024 5:45 PM CDT Joshua Whitehead MD LAB - BEAKER POCT LABORATORY POC [facility] [address], [address] [address], [facility] * Heparin Unfractionated Anti Xa Level (02/20/2024 1:14 PM CDT) Pathologist [facility] Anti Xa Unfractionated Heparin <0.10 For Reference Range, See Comment IU/mL 02/20/2024 2:10 PM CDT LABORATORY Blood STRUCTURE OF RIGHT HAND / Unknown Venipuncture / Unknown 02/20/2024 1:14 PM CDT 02/20/2024 1:22 PM CDT Narrative LABORATORY - 02/20/2024 2:10 PM CDT Therapeutic Range: UFH: 0.25-0.50 IU/mL for low intensity dosing, 0.30-0.70 IU/mL for high intensity dosing DVT and PE. This test is not validated for other direct factor X inhibitors (e.g. rivaroxaban, apixaban, edoxaban, betrixaban, fondaparinux) and should not be used for monitoring of other medications. Joshua Whitehead MD LAB - BLOOD ORDERAB LES [facility] [address], [address] [address], [facility] [phone] * ECHO COMPLETE WITH CONTRAST (02/20/2024 12:45 PM CDT) [facility] LVEF 60% CARDIOLOGY RESULTS Anatomical Region Laterality Modality Echocardiography 02/20/2024 12:1 7 PM CDT Narrative 02/20/2024 12:56 PM CDT [id number]^ZAIRE^DAIANA [facility] Echocardiography Laboratory [address] [place] [address] Name: YESIKA FONTAINE : 1985 Study Date: 02/20/2024 12:17 PM Age: 38 yrs Gender: Male Patient Location: [facility] Reason For Study: SOB Ordering Physician: DAIANA TAI Referring Physician: Valentin Muñoz Performed By: Earnest Bellamy BSA: 2.8 m2 Height: 72 in Weight: 380 lb HR: 94 BP: 120/78 mmHg Procedure Complete Portable Echo Adult. Optison ([facility] #[id number]) given intravenously. Interpretation Summary 1. The left [...] PA acc time: 0.14 sec TR max mayco: 281.0 cm/sec TR max P.6 mmHg AV Mayco Ratio (DI): 0.71 LUCAS Index (cm2/m2): 1.6 RV S Mayco: 16.0 cm/sec Report approved by: Shanel Farooq 02/20/2024 12:56 PM Procedure Note Navin Giles MD - 02/20/2024 [id number]^ZAIRE^DAIANA [facility] Echocardiography Laboratory [address] [place] [address] Name: YESIKA FONTAINE : 1985 Study Date: 02/20/2024 12:17 PM Age: 38 yrs Gender: Male Patient Location: [facility] Reason For Study: SOB Ordering Physician: DAIANA TAI Referring Physician: Valentin Muñoz Performed By: Earnest Bellamy BSA: 2.8 m2 Height: 72 in Weight: 380 lb HR: 94 BP: 120/78 mmHg Procedure Complete Portable Echo Adult. Optison ([facility] #[id number]) givenintravenously. Interpretation Summary 1. The left ventricle [...] PA acc time: 0.14 sec TR max mayco: 281.0 cm/sec TR max P.6 mmHg AV Mayco Ratio (DI): 0.71 LUCAS Index (cm2/m2): 1.6 RV S Mayco: 16.0 cm/sec Report approved by: Shanel Farooq 02/20/2024 12:56 PM Daiana Tai MD CV ECHO ORDERABLES * (ABNORMAL) Troponin T, High Sensitivity (02/20/2024 5:33 AM CDT) [facility] Troponin T, [...] LAB - BLOOD ORDERABL ES LABORATORY [facility] [address], [address] [place] [address], [facility] [phone] * Magnesium (02/20/2024 5:33 AM CDT) Magnesium 2.2 1.7 - 2.3 mg/dL 02/20/2024 10:21 AM CDT LABORATORY Blood STRUCTURE OF RIGHT HAND / Unknown Venipuncture / Unknown 02/20/2024 5:33 AM CDT 02/20/2024 5:39 AM CDT Daiana Tai MD LAB - BLOOD ORDERABL ES LABORATORY [facility] [address], [address] [place] [address], [place] [phone] * Heparin Unfractionated Anti Xa Level (02/20/2024 5:33 AM CDT) Anti Xa Unfractionated Heparin <0.10 For Reference Range, See Comment IU/mL 02/20/2024 6:02 AM CDT LABORATORY Blood STRUCTURE OF RIGHT HAND / Unknown Venipuncture / Unknown 02/20/2024 5:33 AM CDT 02/20/2024 5:39 AM CDT Narrative LABORATORY - 02/20/2024 6:02 AM CDT Therapeutic Range: UFH: 0.25-0.50 IU/mL for low intensity dosing, 0.30-0.70 IU/mL for high intensity dosing DVT and PE. This test is not validated for other direct factor X inhibitors (e.g. rivaroxaban, apixaban, edoxaban, betrixaban, fondaparinux) and should not be used for monitoring of other medications. Joshua Whitehead MD LAB - BLOOD ORDERAB LES LABORATORY [facility] [address], [address] [place] [address], [facility] [phone] * CBC with platelets (02/20/2024 5:33 AM CDT) [facility] WBC Count 8.5 4.0 - 11.0 10e3/uL [...] MD LAB - BLOOD ORDERAB LES LABORATORY [facility] [address], [address] [place] [address], [facility] [phone] * (ABNORMAL) Comprehensive metabolic panel (02/20/2024 5:33 AM [facility]) [facility] Signature Sodium 135 135 - 145 mmol/L 02/20/2024 6:01 AM [facility] Potassium 2.9(L) 3.4 - 5.3 mmol/L 02/20/2024 6:01 AM [facility] Carbon Dioxide (CO2) 24 22 - 29 mmol/L 02/20/2024 6:01 AM [facility] Anion Gap 13 7 - 15 mmol/L 02/20/2024 6:01 AM [facility] Urea Nitrogen 20.6(H) 6.0 - 20.0 mg/dL 02/20/2024 6:01 AM [facility] Creatinine 0.84 0.67 - 1.17 mg/dL 02/20/2024 6:01 AM [facility] GFR Estimate >90 >60 mL/min/1. 73m2 02/20/2024 6:01 AM [facility] Comment:eGFR calculated usin 2020 CKD-EPI equation. Calcium 8.7 8.6 - 10.0 mg/dL 02/20/2024 6:01 AM [facility] Chloride 98 98 - 107 mmol/L 02/20/2024 6:01 AM [facility] Glucose 125(H) 70 - 99 mg/dL 02/20/2024 6:01 AM [facility] Alkaline Phosphatase 53 40 - 150 U/L 02/20/2024 6:01 AM [facility] AST 14 0 - 45 U/L 02/20/2024 6:01 AM [facility] Comment:Reference intervals for this test were updated on 01/30/2023 to more accurately reflect our healthy population. There may be differences in the flagging of prior results with similar values performed with this method. Interpretation of those prior results can be made in the context of the updated reference intervals. ALT 20 0 - 70 U/L 02/20/2024 6:01 AM [facility] Comment:Reference intervals for this test were updated on 01/30/2023 to more accurately reflect our healthy population. There may be differences in the flagging of prior results with similar values performed with this method. Interpretation of those prior results can be made in the context of the updated reference intervals. Protein Total 6.4 6.4 - 8.3 g/dL 02/20/2024 6:01 AM CDT LABORATORY Albumin 3.5 3.5 - 5.2 g/dL 02/20/2024 6:01 AM CDT LABORATORY Bilirubin Total 1.0 <=1.2 mg/dL 02/20/2024 6:01 AM CDT LABORATORY Blood STRUCTURE OF RIGHT HAND / Unknown Venipuncture / Unknown 02/20/2024 5:33 AM CDT 02/20/2024 5:39 AM CDT Joshua hWitehead MD LAB - BLOOD ORDERAB LES LABORATORY [facility] [address], [address] [place] [address], [facility] [phone] * (ABNORMAL) Glucose by meter (02/20/2024 1:34 AM CDT) GLUCOSE BY METER POCT 115(H) 70 - 99 mg/dL 02/20/2024 1:41 AM CDT LABORATORY POC Blood, Capillary BLOOD SPECIMEN / Unknown 02/20/2024 1:34 AM CDT 02/20/2024 1:41 AM CDT Joshua Whitehead MD LAB - BEAKER POCT LABORATORY POC [facility] [address], [address] [place] [address], [facility] * Heparin Unfractionated Anti Xa Level (02/19/2024 10:47 PM CDT) Anti Xa Unfractionated Heparin 0.24 For Reference Range, See Comment IU/mL 02/19/2024 11:13 PM CDT LABORATORY Blood STRUCTURE OF RIGHT HAND / Unknown Venipuncture / Unknown 02/19/2024 10:47 PM CDT 02/19/2024 10:55 PM CDT Narrative LABORATORY - 02/19/2024 11:13 PM CDT Therapeutic Range: UFH: 0.25-0.50 IU/mL for low intensity dosing, 0.30-0.70 IU/mL for high intensity dosing DVT and PE. This test is not validated for other direct factor X inhibitors (e.g. rivaroxaban, apixaban, edoxaban, betrixaban, fondaparinux) and should not be used for monitoring of other medications. Fco Trujillo MD LAB - BLOOD OR DERABLES LABORATORY [facility] [address], [address] [place] [address], [facility] [phone] * IR Pulmonary Angiogram Bilateral (02/19/2024 9:06 [...] EDOUARD MD Narrative 02/19/2024 9:38 PM CDT [facility] LOCATION: [facility] DATE: 02/19/2024 PROCEDURE: 1. ??SELECTIVE AND SUPERSELECTIVE [...] sterile drape. Prior to the procedure, the information systems operator and commercial lines account assistant performed hand hygiene and wore hat, [...] exchanged over the wire for a 4 Tongan coaxial dilator. The inner 3 Tongan dilator and 0.018 inch wire were then exchanged for a 0.035 inch guidewire. The outer 4 Tongan dilator was then exchanged over the guidewire for a 6 Tongan vascular sheath. ?? Utilizing preclose technique 2 Perclose suture devices were deployed at the right common femoral venous access site in standard fashion. The 6 Tongan sheath was removed over a 0.035 inch Amplatz wire. Serial dilatation was performed to 20 Tongan followed by a 24 Tongan dry seal sheath. A 6 Tongan Grollman-type catheter was advanced over a 0.035 [...] branch (greater than third order). A 24 Tongan FlowTriever catheter was advanced into the main right pulmonary artery and primary percutaneous transluminal mechanical thrombectomy (extirpation of matter) was performed with removal of a moderate amount of thrombus from the main right and right lower and right upper lobe pulmonary arteries. Pressure measurement was obtained. The catheter was retracted in the main pulmonary artery. A 5 Tongan KMP catheter, with the aid of a 0.035 inch angled Glidewire, was directed through the 24 Tongan catheter and directed into the left pulmonary artery. Pressure measurements were obtained. A pulmonary arteriogram was obtained. Next the Amplatz wire was removed from the left pulmonary artery and advanced through the KMP catheter into the left pulmonary artery. Following this the KMP catheter was exchanged for the dilator of the 24 Tongan catheter. This was advanced into the left pulmonary artery. The 24 Tongan FlowTriever catheter was advanced into the main left pulmonary artery and primary percutaneous transluminal mechanical thrombectomy (extirpation of matter) was performed with removal of a moderate amount of thrombus from the left mid and left lower pulmonary arteries. A 20 Tongan curved embolectomy catheter was advanced coaxially through the 24 Tongan catheter and additional mechanical thrombectomy performed with [...] Procedure Note Nas Edouard MD - 02/19/2024 [facility] LOCATION: [facility] DATE: 02/19/2024 PROCEDURE: 1. SELECTIVE AND SUPERSELECTIVE BILATERAL PULMONARY ARTERIOGRAPHY. 2. EXTIRPATION OF MATTER FROM THE BILATERAL PULMONARY ARTERIES, PERCUTANEOUS APPROACH. 3. INTRA-ARTERIAL PRESSURE MEASUREMENTS. 4. ULTRASOUND GUIDANCE FOR VASCULAR ACCESS. 5. CLOSURE DEVICE. 6. MODERATE SEDATION. INTERVENTIONAL RADIOLOGIST: Nas R. Nordman, M.D. INDICATION: 38-year-old male with bilateral pulmonary [...] sterile drape. Prior to the procedure, the information systems operator and commercial lines account assistant performed hand hygiene and wore hat, [...] exchanged over the wire for a 4 Tongan coaxial dilator. The inner 3 Tongan dilator and 0.018 inch wire were then exchanged for a 0.035 inch guidewire. The outer 4 Tongan dilator was then exchanged over the guidewire for a 6 Tongan vascular sheath. Utilizing preclose technique 2 Perclose suture devices were deployed at the right common femoral venous access site in standard fashion. The 6 Tongan sheath was removed over a 0.035 inch Amplatz wire. Serial dilatation was performed to 20 Tongan followed by a 24 Tongan dry seal sheath. A 6 Tongan Grollman-type catheter was advanced over a 0.035 [...] branch (greater than third order). A 24 Tongan FlowTriever catheter was advanced into the main right pulmonary artery and primary percutaneous transluminal mechanical thrombectomy (extirpation of matter) was performed with removal of a moderate amount of thrombus from the main right and right lower and right upper lobe pulmonary arteries. Pressure measurement was obtained. The catheter was retracted in the main pulmonary artery. A 5 Tongan KMP catheter, with the aid of a 0.035 inch angled Glidewire, was directed through the 24 Tongan catheter and directed into the left pulmonary artery. Pressure measurements were obtained. A pulmonary arteriogram was obtained. Next the Amplatz wire was removed from the left pulmonary artery and advanced through the KMP catheter into the left pulmonary artery. Following this the KMP catheter was exchanged for the dilator of the 24 Tongan catheter. This was advanced into the left pulmonary artery. The 24 Tongan FlowTriever catheter was advanced into the main left pulmonary artery and primary percutaneous transluminal mechanical thrombectomy (extirpation of matter) was performed with removal of a moderate amount of thrombus from the left mid and left lower pulmonary arteries. A 20 Tongan curved embolectomy catheter was advanced coaxially through the 24 Tongan catheter and additional mechanical thrombectomy performed with [...] 13 NAS EDOUARD MD Nas Edouard MD IMG IR ORDERABLES * (ABNORMAL) CT Chest Pulmonary [...] CT CHEST PULMONARY EMBOLISM W CONTRAST LOCATION: [facility] DATE: 02/19/2024 INDICATION: known DVT, SOB COMPARISON: [...] UPPER ABDOMEN: Negative. MUSCULOSKELETAL: Negative. Procedure Note Clinton Juárez MD - 02/19/2024 EXAM: CT CHEST PULMONARY EMBOLISM W CONTRAST LOCATION: [facility] DATE: 02/19/2024 INDICATION: known DVT, SOB COMPARISON: [...] PM CDT. Dr. Trujillo was contacted by ms on 02/19/2024 6:44 PM CDT. Fco Trujillo MD [facility] [place] ORDERAB LES * CBC with platelets and differential (02/19/2024 3:55 PM CDT) [facility] WBC Count 10.6 4.0 - 11.0 10e3/uL [...] LAB - BLOOD OR DERABLES LABORATORY [facility] [address] 1[address] floor, [address] [place] [address], [facility] [phone] * (ABNORMAL) Nt probnp inpatient (BNP) (02/19/2024 [...] LAB - BLOOD OR DERABLES LABORATORY [facility] [address], [address] [address], [facility] [phone] * (ABNORMAL) Blood gas venous (02/19/2024 3:55 PM CDT) pH Venous 7.48(H) 7.32 - 7.43 02/19/2024 4:01 PM CDT LABORATORY pCO2 Venous 33(L) 40 - 50 mm Hg 02/19/2024 4:01 PM CDT LABORATORY pO2 Venous 42 25 - 47 mm Hg 02/19/2024 4:01 PM CDT LABORATORY Bicarbonate Venous 25 21 - 28 mmol/L 02/19/2024 4:01 PM CDT LABORATORY Base Excess/Deficit Venous 1.9 -3.0 - 3.0 mmol/L 02/19/2024 4:01 PM CDT LABORATORY FIO2 21 PAUL 02/19/2024 4:01 PM CDT LABORATORY Oxyhemoglobin Venous 81(H) 70 - 75 % 02/19/2024 4:01 PM CDT LABORATORY O2 Sat, Venous 82.7(H) 70.0 - 75.0 % 02/19/2024 4:01 PM CDT LABORATORY Blood, venous VENOUS LINE / Unknown Venipuncture / Unknown 02/19/2024 3:55 PM CDT 02/19/2024 3:59 PM CDT Narrative LABORATORY - 02/19/2024 4:01 PM CDT In healthy individuals, oxyhemoglobin (O2Hb) and oxygen saturation (SO2) are approximately equal. In the presence of dyshemoglobins, oxyhemoglobin can be considerably lower than oxygen saturation. Fco Trujillo MD LAB - BLOOD OR DERABLES LABORATORY [facility] [address] 1[address], [address] [place] [address], [facility] [phone] * (ABNORMAL) Troponin T, High Sensitivity (02/19/2024 3:55 PM CDT) Troponin T, High Sensitivity 48(H) <=22 ng/L 02/19/2024 4:31 PM CDT LABORATORY Comment: Either a High Sensitivity [...] follow-up, or urgent outpatient provocative testing. Blood BLOOD SPECIMEN / Unknown Venipuncture / Unknown 02/19/2024 3:55 PM CDT 02/19/2024 3:59 PM CDT Fco Trujillo MD LAB - BLOOD OR DERABLES LABORATORY [facility] [address] 1[address], [address] [place] [address], [facility] [phone] * (ABNORMAL) Comprehensive metabolic panel (02/19/2024 3:55 PM CDT) Sodium 133(L) 135 - 145 mmol/L 02/19/2024 5:03 PM CDT LABORATORY Potassium 3.4 3.4 - 5.3 mmol/L 02/19/2024 5:03 PM CDT LABORATORY Carbon Dioxide (CO2) 21(L) 22 - 29 mmol/L 02/19/2024 5:03 PM CDT LABORATORY Anion Gap 16(H) 7 - 15 mmol/L 02/19/2024 5:03 PM CDT LABORATORY Urea Nitrogen 23.4(H) 6.0 - 20.0 mg/dL 02/19/2024 5:03 PM CDT LABORATORY Creatinine 1.19(H) 0.67 - 1.17 mg/dL 02/19/2024 5:03 PM CDT LABORATORY GFR Estimate 80 >60 mL/min/1. 73m2 02/19/2024 5:03 PM CDT LABORATORY Comment:eGFR calculated usin 2020 CKD-EPI equation. Calcium 9.2 8.6 - 10.0 mg/dL 02/19/2024 5:03 PM CDT LABORATORY Chloride 96(L) 98 - 107 mmol/L 02/19/2024 5:03 PM CDT LABORATORY Glucose 133(H) 70 - 99 mg/dL 02/19/2024 5:03 PM CDT LABORATORY Alkaline Phosphatase 59 40 - 150 U/L 02/19/2024 5:03 PM CDT LABORATORY AST 20 0 - 45 U/L 02/19/2024 5:03 PM CDT LABORATORY Comment: Specimen is hemolyzed which can falsely elevate AST. Analysis of a non-hemolyzed specimen may result in a lower value. Reference intervals for this test were updated on 01/30/2023 to more accurately reflect our healthy population. There may be differences in the flagging of prior results with similar values performed with this method. Interpretation of those prior results can be made in the context of the updated reference intervals. ALT 24 0 - 70 U/L 02/19/2024 5:03 PM CDT LABORATORY Comment:Reference intervals for this test were updated on 01/30/2023 to more accurately reflect our healthy population. There may be differences in the flagging of prior results with similar values performed with this method. Interpretation of those prior results can be made in the context of the updated reference intervals. Protein Total 7.1 6.4 - 8.3 g/dL 02/19/2024 5:03 PM CDT LABORATORY Albumin 4.1 3.5 - 5.2 g/dL 02/19/2024 5:03 PM CDT LABORATORY Bilirubin Total 1.0 <=1.2 mg/dL 02/19/2024 5:03 PM CDT LABORATORY Blood BLOOD SPECIMEN / Unknown Venipuncture / Unknown 02/19/2024 3:55 PM CDT 02/19/2024 3:59 PM CDT Fco Trujillo MD LAB - BLOOD OR DERABLES LABORATORY [facility] [address] 1[address], [address] [place] [address], [facility] [phone] * (ABNORMAL) D dimer quantitative (02/19/2024 3:55 PM CDT) Pathologist [facility] D-Dimer Quantitative 6.32(H) 0.00 - 0.50 ug/mL [...] OR DERABLES LABORATORY [facility] [address], [address] [place] [address], [facility] [phone] * EKG 12-lead, tracing only (02/19/2024 3:43 PM CDT) Systolic Blood Pressure mmHg RADIOLOGY RESULTS Diastolic Blood Pressure mmHg RADIOLOGY RESULTS Ventricular Rate 111 BPM RAD IOLOGY RESULTS Atrial Rate 111 BPM RADIOLOG Y RESULTS MS Interval 150 ms RADIOLOG Y RESULTS QRS Duration 100 ms RADIOLO GY RESULTS QT 360 ms RADIOLOGY RESULTS QTc 489 ms RADIOLOGY RESULTS P Tiro 38 degrees RADIOLOGY RESULTS R AXIS -21 degrees RADIOLOGY RESULTS T Tiro -7 degrees RADIOLOGY RESULTS Interpretation ECG Sinus tachycardia T wave abnormality, consider anterior ischemia Abnormal ECG When compared with ECG of 17-JAN-2024 15:35, T wave inversion now evident in Anterior leads Confirmed by GENERATED REPORT, COMPUTER ([id number]), online editor Jeimy Hale ([id number]) on 02/19/2024 6:00:09 PM RADIOLOGY RESULTS 02/19/2024 3:43 PM CDT 02/19/2024 6:00 PM CDT Fco Trujillo MD ECG ORDERABLES RADIOLOGY RESULTS documented in this encounter Visit Diagnoses Diagnosis Hypertension- Primary Unspecified essential hypertension Acute deep vein thrombosis (DVT) of iliac vein of right lower extremity (H) Acute saddle pulmonary embolism with acute cor pulmonale (H) CAROLE (generalized anxiety disorder) Generalized anxiety disorder Acute deep vein thrombosis (DVT) of iliac vein of right lower extremity (H) Acute saddle pulmonary embolism with acute cor pulmonale (H) documented in this encounter Administered Medications Inactive Administered Medications - up to 3 most recent administrations Medication Order MAR Action Action Date Dose Rate Site acetaminophen (TYLENOL) Suppository 650 mg 650 mg, Rectal, EVERY 4 HOURS PRN, mild pain, other, and adjunct with moderate or severe pain or per patient request, Starting on Mon02/19/24 at 2152, Alternate with ibuprofen if ordered. Maximum acetaminophen dose from all sources = 75 mg/kg/day not to exceed 4 grams/day. acetaminophen (TYLENOL) tablet 650 mg 650 mg, Oral, EVERY 4 HOURS PRN, mild pain, other, and adjunct with moderate or severe pain or per patient request, Starting on Mon02/19/24 at 2152, Alternate with ibuprofen if ordered. Maximum acetaminophen dose from all sources = 75 mg/kg/day not to exceed 4 grams/day. $Given 02/20/2024 9:42 PM CDT 650 mg amLODIPine (NORVASC) tablet 5 mg 5 mg, Oral, DAILY, First dose on Mon02/22/24 at 1300, Hold for SBP < 130 $Given 02/23/2024 10:01 AM CDT 5 mg $Given 02/22/2024 3:03 PM CDT 5 mg fentaNYL (PF) (SUBLIMAZE) injection 25-50 mcg 25-50 mcg, Intravenous, EVERY 5 MIN PRN, severe pain, If inadequate response may repeat 25 mcg IV slowly every 5 min PRN severe pain; when verbally requested by provider., Administer over 2 Minutes, Starting on Mon02/19/24 at 2002, Doses can be exceeded under direct oversight of patient by physician., IR Intra-procedure $Given 02/19/2024 8:58 PM CDT 25 mcg fentaNYL (PF) (SUBLIMAZE) injection 25-50 mcg 25-50 mcg, Intravenous, EVERY 5 MIN PRN, severe pain, If inadequate response may repeat 25 mcg IV slowly every 5 min PRN severe pain; when verbally requested by provider., Administer over 2 Minutes, Starting on Mon02/20/24 at 1557, Doses can be exceeded under direct oversight of patient by physician., IR Intra-procedure $Given 02/20/2024 5:16 PM CDT 50 mcg $Given 02/20/2024 5:03 PM CDT 25 mcg $Given 02/20/2024 4:53 PM CDT 25 mcg FLUoxetine (PROzac) capsule 40 mg 40 mg, Oral, DAILY, First dose on Mon02/20/24 at 0900 $Given 02/23/2024 10:01 AM CDT 40 mg $Given 02/22/2024 9:24 AM CDT 40 mg $Given 02/21/2024 9:08 AM CDT 40 mg gabapentin (NEURONTIN) tablet 1,200 mg 1,200 mg, Oral, AT BEDTIME, First dose on Mon02/19/24 at 2200 $Given 02/20/2024 9:42 PM CDT 1,200 mg gabapentin (NEURONTIN) tablet 1,200 mg 1,200 mg, Oral, AT BEDTIME, First dose on Mon02/22/24 at 2200 $Given 02/22/2024 9:01 PM CDT 1,200 mg heparin (porcine) injection 4,000 Units 4,000 Units, Intravenous, ONCE PRN, other, when verbally ordered by prescriber during the procedure., Starting on Mon02/19/24 at 2051, For 1 dose, Prescriber will determine dose based on patient's weight and ACT results., IR Intra-procedure $Given 02/19/2024 8:53 PM CDT 4,000 Units heparin - BOLUS DOSE from infusion 3,000 Units, Intravenous, ONCE, On Mon02/19/24 at 2330, For 1 dose, IV PUMP PROGRAMMING: Program continuous infusion first, then program bolus dose. Infuse over 5 minutes. For Heparin Anti-Xa value 0.18-0.29 High Intensity Heparin Treatment- Anti-Xa monitoring Nurse to administer dose from existing infusion. If no infusion bag or syringe for this order is available, contact pharmacist to re-enter medication order. $Given 02/19/2024 11:55 PM CDT 3,000 Units heparin - BOLUS DOSE from infusion 6,000 Units, Intravenous, ONCE, On Mon02/20/24 at 0630, For 1 dose, IV PUMP PROGRAMMING: Program continuous infusion first, then program bolus dose. Infuse over 5 minutes. For Heparin Anti-Xa value LESS than 0.1 High Intensity Heparin Treatment- Anti-Xa monitoring Nurse to administer dose from existing infusion. If no infusion bag or syringe for this order is available, contact pharmacist to re-enter medication order. $Given 02/20/2024 6:13 AM CDT 6,000 Units heparin - BOLUS DOSE from infusion 6,000 Units, Intravenous, ONCE, On Mon02/20/24 at 1500, For 1 dose, IV PUMP PROGRAMMING: Program continuous infusion first, then program bolus dose. Infuse over 5 minutes. For Heparin Anti-Xa value LESS than 0.1 High Intensity Heparin Treatment- Anti-Xa monitoring Nurse to administer dose from existing infusion. If no infusion bag or syringe for this order is available, contact pharmacist to re-enter medication order. $Given 02/20/2024 2:41 PM CDT 6,000 Units heparin - BOLUS DOSE from infusion 3,000 Units, Intravenous, ONCE, On Mon02/21/24 at 0200, For 1 dose, IV PUMP PROGRAMMING: Program continuous infusion first, then program bolus dose. Infuse over 5 minutes. For Heparin Anti-Xa value 0.18-0.29 High Intensity Heparin Treatment- Anti-Xa monitoring Nurse to administer dose from existing infusion. If no infusion bag or syringe for this order is available, contact pharmacist to re-enter medication order. $Given 02/21/2024 1:42 AM CDT 3,000 Units heparin 2 Units/mL 0.9% NaCl (1000 mL) 1 Bag, TABLE SOLN, EVERY 5 MIN PRN, Catheter prep table solution use as directed by provider., Starting on Mon02/19/24 at 2002, For 10 doses, Maximum total dose 10 bags = 5000 mL. Nurse will document total number of bags used at the end of the procedure., IR Intra-procedure $Given 02/19/2024 8:34 PM CDT 5 Bags heparin 2 Units/mL 0.9% NaCl (1000 mL) 1 Bag, TABLE SOLN, CONTINUOUS PRN, Catheter prep table solution use as directed by provider., Starting on Mon02/20/24 at 1557, Maximum total dose = 5000 mL. Nurse will document total dose number of bags used at the end of the procedure. NOT A PRESSURE BAG, IR Intra-procedure $New Bag 02/20/2024 4:38 PM CDT 5 Bags heparin 25,000 units in 0.45% NaCl 250 mL ANTICOAGULANT infusion 0-5,000 Units/hr (0-50 mL/hr), Intravenous, CONTINUOUS, Starting on Mon02/19/24 at 1545, For 2 days 3 hours, Stop heparin drip when giving first dose of rivaroxaban. --Nurse to use Heparin Infusion ADULT Dose Adjustments by RN order set after EVERY heparin unfractionated Anti-Xa result to place further orders (for bolus if needed, infusion adjustment if needed, and ordering next lab)- Starting Infusion Rate = 1800 units/hr (Ordered: 02/19/2024) High Intensity Heparin Treatment WITH Boluses. GOAL: Heparin Xa (10a) LEVEL = 0.3-0.7 IU/mL IF HEPARIN INFUSION HELD FOR PROCEDURE: Restart heparin infusion at previous rate (no bolus needed). Nurse to place a one-time unfractionated heparin Anti-Xa lab order timed for 6 hours after heparin infusion was restarted., Heparin Therapy Type: High Intensity Heparin Infusion (Anti Xa 0.3-0.7) $New Bag 02/21/2024 11:44 AM CDT 2,500 Units/hr 25 mL/hr Rate/Dose Verify 02/21/2024 9:11 AM CDT 2,500 Units/hr 25 mL/hr $New Bag 02/21/2024 2:28 AM CDT 29 Units/hr 0.5 mL/hr heparin ANTICOAGULANT loading dose for HIGH INTENSITY TREATMENT* Give BEFORE starting heparin infusion 8,000 Units, Intravenous, ONCE, On Mon02/19/24 at 1545, For 1 dose, Infuse over 5 minutes. High Intensity Heparin Treatment Nurse to administer dose from existing infusion. If no infusion bag or syringe for this order is available, contact pharmacist to re-enter medication order. $Given 02/19/2024 6:12 PM CDT 8,000 Units heparin Lock (1000 units/mL High concentration) 4,000 Units 4,000 Units, Intravenous, ONCE, On Mon02/20/24 at 1730, For 1 dose $Given 02/20/2024 5:17 PM CDT 4,000 Units Hold: Metformin and metformin containing medications on day of the procedure and for 48 hours after IV contrast given- Patients with acute kidney injury or severe chronic kidney disease (stage IV or stage V; i.e., eGFR less than 30) Medication(s) to hold: Metformin and metformin containing medications (see admin instructions), Parameter for hold (doses,days,conditions) : Other (see admin instructions), Hours or days to hold med before/after procedure/surgery: for 48 hours post procedure, HOLD, Starting on Mon02/20/24 at 1818, Until Mon02/23/24 at 1852, Metformin (GLUCOPHAGE, GLUMETZA, FORTAMET, RIOMET) and metformin containing medications:alogliptin/metformin (KAZANO), glipizide/metformin (METAGLIP), glyburide/metformin (GLUCOVANCE), rosiglitazone/metformin (AVANDAMET), dapagliflozin/metformin (XIGDUO XR), sitagliptin/metformin (JANUMET, JANUMET XR), linagliptin/metformin (JENTADUETO), repaglinidine/metformin (PRANDIMET), saxagliptin/metformin (KOMBIGLYZE XR), canagliflozin/metformin (INVOKAMET), pioglitazone/metformin (ACTOPLUS MET, ACTOPLUS MET XR). For patients with acute kidney injury or severe chronic kidney disease (stage IV or stage V; i.e., eGFR less than 30. If patient was on one of these medications pre-procedure, continue to HOLD for 48 hours post-procedure if patient received IV contrast. For patients with acute kidney injury or severe chronic kidney disease (stage IV or stage V; i.e., eGFR less than 30) hydrALAZINE (APRESOLINE) injection 10 mg 10 mg, Intravenous, EVERY 4 HOURS PRN, high blood pressure, for SBP >160, Administer over 1 Minutes, Starting on Mon02/21/24 at 0910 iopamidol (ISOVUE-300) IV solution 61% 100 mL 100 mL, Intravenous, ONCE, On Mon02/19/24 at 2010, For 1 dose, Supplied and administered by Radiology., IR Intra-procedure $Given 02/19/2024 9:07 PM CDT 24 mLs iopamidol (ISOVUE-300) IV solution 61% 100 mL 100 mL, Intravenous, ONCE, On Mon02/20/24 at 1630, For 1 dose, Supplied and administered by Radiology., IR Intra-procedure $Given 02/20/2024 5:52 PM CDT 90 mLs iopamidol (ISOVUE-370) solution 83 mL 83 mL, Intravenous, ONCE, On Mon02/19/24 at 1750, For 1 dose $Given 02/19/2024 6:00 PM CDT 83 mLs lidocaine 1 % 1-30 mL 1-30 mL, Intradermal, ONCE PRN, local anesthetic. When verbally ordered by prescriber during the procedure., Starting on Mon02/19/24 at 2002, For 1 dose, Dose to be divided into smaller volumes appropriate for the procedure. Provider to administer intradermally., IR Intra-procedure $Given by Other 02/19/2024 8:35 PM CDT 10 mLs lidocaine 1 % 1-30 mL 1-30 mL, Intradermal, ONCE PRN, local anesthetic. When verbally ordered by prescriber during the procedure., Starting on Mon02/20/24 at 1557, For 1 dose, Dose to be divided into smaller volumes appropriate for the procedure. Provider to administer intradermally., IR Intra-procedure $Given by Other 02/20/2024 4:20 PM CDT 10 mLs midazolam (VERSED) injection 0.5-2 mg 0.5-2 mg, Intravenous, Administer over 1 Minutes, EVERY 4 MIN PRN, sedation, If inadequate response may repeat 0.5 mg IV slowly every 4 minutes PRN sedation until desired response; when verbally requested by provider., Starting on Mon02/20/24 at 1557, Doses can be exceeded under direct oversight of patient by physician. This drug may cause significant respiratory depression. Monitor respiratory status and vital signs carefully for 1 hour after each dose., IR Intra-procedure $Given 02/20/2024 5:17 PM CDT 1 mg $Given 02/20/2024 5:04 PM CDT 0.5 mg $Given 02/20/2024 4:54 PM CDT 0.5 mg morphine (PF) injection 4 mg 4 mg, Intravenous, EVERY 15 MIN PRN, moderate pain, severe pain, Starting on Mon02/19/24 at 1910, For 3 doses, Notify the provider to assess for uncontrolled pain or analgesic side effects. Hold while on IV MAJOR ACCOUNT REPRESENTATIVE or with regular IV opioid dosing. $Given 02/19/2024 7:23 PM CDT 4 mg naloxone (NARCAN) injection 0.2 mg 0.2 mg, Intravenous, EVERY 2 MIN PRN, opioid reversal, Starting on Mon02/19/24 at 2147, Administer intravenous route when available and notify provider when administered. For unintended sedation or respiratory depression if all of the below criteria are met: ~ respiratory rate LESS than or EQUAL to 8. ~SaO2 less than 92% and or/end-tidal CO2 is greater than 50. ~ the patient is receiving an opioid, has unintended sedations assessed as RASS (-3), and is currently not on mechanical ventilation. RASS scale moderate (-3) is movement or eye opening to voice but no eye contact. Patient Monitoring Once the patient has demonstrated a response to the naloxone, continue to monitor respiratory rate, depth, oxygen saturation and end-tidal CO2 (if available) every 15 minutes x 2, then every 30 minutes x 2, then every 1 hour x 1 after each naloxone dose. Consider transfer to ICU if patient respiratory parameters have not improved after 4 naloxone doses. naloxone (NARCAN) injection 0.2 mg 0.2 mg, Intramuscular, EVERY 2 MIN PRN, opioid reversal, Starting on Mon02/19/24 at 2147, Administer intramuscular if an intravenous route is not available and notify provider when administered. For unintended sedation or respiratory depression if all of the below criteria are met: ~ respiratory rate LESS than or EQUAL to 8. ~SaO2 less than 92% and or/end-tidal CO2 is greater than 50. ~ the patient is receiving an opioid, has unintended sedations assessed as RASS (-3), and is currently not on mechanical ventilation. RASS scale moderate (-3) is movement or eye opening to voice but no eye contact. Patient Monitoring Once the patient has demonstrated a response to the naloxone, continue to monitor respiratory rate, depth, oxygen saturation and end-tidal CO2 (if available) every 15 minutes x 2, then every 30 minutes x 2, then every 1 hour x 1 after each naloxone dose. Consider transfer to ICU if patient respiratory parameters have not improved after 4 naloxone doses. naloxone (NARCAN) injection 0.4 mg 0.4 mg, Intravenous, EVERY 2 MIN PRN, opioid reversal, Starting on Mon02/19/24 at 2147, Administer intravenous route when available and notify provider when administered. For unintended sedation or respiratory depression if all of the below criteria are met: ~ respiratory rate LESS than or EQUAL to 8. ~ SaO2 less than 92% and or/end-tidal CO2 is greater than 50. ~ the patient is receiving an opioid, has unintended sedation assessed as RASS (-4) or (-5) and patient is currently not on mechanical ventilation. RASS scale (-4) is deep sedation with no response to voice but movement or eye opening to physical stimulation. RASS scale (-5) is unarousable. Patient Monitoring Once the patient has demonstrated a response to the naloxone, continue to monitor respiratory rate, depth, oxygen saturation and end-tidal CO2 (if available) every 15 minutes x 2, then every 30 minutes x 2, then every 1 hour x 1 after each naloxone dose. Consider transfer to ICU if patient respiratory parameters have not improved after 4 naloxone doses. naloxone (NARCAN) injection 0.4 mg 0.4 mg, Intramuscular, EVERY 2 MIN PRN, opioid reversal, Starting on Mon02/19/24 at 2147, Administer intramuscular if an intravenous route is not available and notify provider when administered. For unintended sedation or respiratory depression if all of the below criteria are met: ~ respiratory rate LESS than or EQUAL to 8. ~ SaO2 less than 92% and or/end-tidal CO2 is greater than 50. ~ the patient is receiving an opioid, has unintended sedation assessed as RASS (-4) or (-5) and patient is currently not on mechanical ventilation. RASS scale (-4) is deep sedation with no response to voice but movement or eye opening to physical stimulation. RASS scale (-5) is unarousable. Patient Monitoring Once the patient has demonstrated a response to the naloxone, continue to monitor respiratory rate, depth, oxygen saturation and end-tidal CO2 (if available) every 15 minutes x 2, then every 30 minutes x 2, then every 1 hour x 1 after each naloxone dose. Consider transfer to ICU if patient respiratory parameters have not improved after 4 naloxone doses. ondansetron (ZOFRAN ODT) ODT tab 4 mg 4 mg, Oral, EVERY 6 HOURS PRN, nausea, vomiting, Starting on Mon02/19/24 at 2152, This is Step 1 of nausea and vomiting management. If nausea not resolved in 15 minutes, go to Step 2 prochlorperazine (COMPAZINE). With dry hands, peel back foil backing and gently remove tablet. Do not push oral disintegrating tablet through foil backing. Administer immediately on tongue and oral disintegrating tablet dissolves in seconds, then swallow with saliva. Liquid not required. ondansetron (ZOFRAN) injection 4 mg 4 mg, Intravenous, EVERY 6 HOURS PRN, nausea, vomiting, Administer over 2-5 Minutes, Starting on Mon02/19/24 at 2152, Give IF patient unable to tolerate oral medication. This is Step 1 of nausea and vomiting management. If nausea not resolved in 15 minutes, go to Step 2 prochlorperazine (COMPAZINE). Irritant. perflutren diluted 1mL to 2mL with saline (OPTISON) diluted injection 9 mL 9 mL, Intravenous, ONCE, On Mon02/20/24 at 1300, For 1 dose $Given 02/20/2024 12:44 PM CDT 9 mLs potassium chloride 10 mEq in 100 mL sterile water infusion 10 mEq, Intravenous, Administer over 60 Minutes, at 100 mL/hr, EVERY HOUR, First dose on Mon02/20/24 at 1500, For 6 doses, Infuse via PERIPHERAL or CENTRAL LINE. Potassium level 2.7 - 3 mmol/L. Administer 10 mEq potassium chloride IV x 6 doses and recheck potassium level 1-2 hours AFTER last IV dose. Ordered from the Potassium replacement order set. $New Bag 02/20/2024 2:47 PM CDT 10 mEq 100 mL/hr potassium chloride misa ER (KLOR-CON M20) CR tablet 20 mEq 20 mEq, Oral, ONCE, On Mon02/20/24 at 2030, For 1 dose, Potassium level 2.7 - 3 mmol/L Ordered from the Potassium replacement order set. DO NOT CRUSH, Potassium Replacement: Potassium level 2.7-3 mmol/L, Recheck: Potassium level 4 hours AFTER last oral dose $Given 02/20/2024 8:08 PM CDT 20 mEq potassium chloride misa ER (KLOR-CON M20) CR tablet 40 mEq 40 mEq, Oral, ONCE, On Mon02/20/24 at 1830, For 1 dose, Potassium level 2.7 - 3 mmol/L Ordered from the Potassium replacement order set. DO NOT CRUSH, Potassium Replacement: Potassium level 2.7-3 mmol/L, Recheck: Potassium level 4 hours AFTER last oral dose $Given 02/20/2024 6:31 PM CDT 40 mEq potassium chloride misa ER (KLOR-CON M20) CR tablet 40 mEq 40 mEq, Oral, ONCE, On Mon02/21/24 at 0130, For 1 dose, Potassium level 3.1 - 3.4 mmol/L Ordered from the Potassium replacement order set. DO NOT CRUSH, Potassium Replacement: Potassium level 3.1-3.4 mmol/L, Recheck: Potassium level 4 hours AFTER last oral dose $Given 02/21/2024 1:43 AM CDT 40 mEq potassium chloride misa ER (KLOR-CON M20) CR tablet 40 mEq 40 mEq, Oral, ONCE, On Sara 02/22/24 at 1000, For 1 dose, Potassium level 3.1 - 3.4 mmol/L Ordered from the Potassium replacement order set. DO NOT CRUSH, Potassium Replacement: Potassium level 3.1-3.4 mmol/L, Recheck: Potassium level 4 hours AFTER last oral dose $Given 02/22/2024 3:03 PM CDT 40 mEq risperiDONE (risperDAL) tablet 2 mg 2 mg, Oral, AT BEDTIME, First dose on Mon02/19/24 at 2200 $Given 02/22/2024 9:01 PM CDT 2 mg $Given 02/21/2024 9:27 PM CDT 2 mg $Given 02/20/2024 9:42 PM CDT 2 mg rivaroxaban ANTICOAGULANT (XARELTO) tablet 15 mg 15 mg, Oral, 2 TIMES DAILY WITH MEALS, First dose on Mon02/21/24 at 1800, For 19 days, Indications: DVT-PE Treatment $Given 02/23/2024 10:01 AM CDT 15 mg $Given 02/22/2024 6:58 PM CDT 15 mg $Given 02/22/2024 9:24 AM CDT 15 mg rivaroxaban ANTICOAGULANT (XARELTO) tablet 20 mg 20 mg, Oral, DAILY WITH SUPPER, First dose on Mon03/11/24 at 1800, Indications: DVT-PE Treatment senna-docusate (SENOKOT-S/PERICOLACE) 8.6-50 MG per tablet 1 tablet 1 tablet, Oral, 2 TIMES DAILY PRN, constipation, Starting on Mon02/19/24 at 2152, If no bowel movement in 24 hours, increase to 2 tablets by mouth. IF more than 1 constipation PRN medication is ordered, administer step-ackerman as indicated, moving to the next step ONLY if prior step ineffective. Step 1: senna-docusate (SENOKOT-S; PERICOLACE) OR bisacodyl (DULCOLAX) EC tablet Step 2: polyethylene glycol (MIRALAX/GLYCOLAX) Step 3: bisacodyl (DULCOLAX) suppository Step 4: enema Hold for loose stools. senna-docusate (SENOKOT-S/PERICOLACE) 8.6-50 MG per tablet 2 tablet 2 tablet, Oral, 2 TIMES DAILY PRN, constipation, Starting on Mon02/19/24 at 2152, IF more than 1 constipation PRN medication is ordered, administer step-ackerman as indicated, moving to the next step ONLY if prior step ineffective. Step 1: senna-docusate (SENOKOT-S; PERICOLACE) OR bisacodyl (DULCOLAX) EC tablet Step 2: polyethylene glycol (MIRALAX/GLYCOLAX) Step 3: bisacodyl (DULCOLAX) suppository Step 4: enema Hold for loose stools. sodium chloride (PF) 0.9% PF flush 10 mL 10 mL, Intravenous, ONCE, On Mon02/20/24 at 1300, For 1 dose $Given 02/20/2024 12:45 PM CDT 10 mLs sodium chloride (PF) 0.9% PF flush 3 mL 3 mL, Intracatheter, EVERY 8 HOURS, First dose on Mon02/19/24 at 2200, to lock peripheral IV dormant line $Given 02/22/2024 6:33 AM CDT 3 mLs $Given 02/21/2024 9:28 PM CDT 3 mLs sodium chloride (PF) 0.9% PF flush 3 mL 3 mL, Intracatheter, EVERY 8 HOURS, First dose on Mon02/19/24 at 2200, to lock peripheral IV dormant line $Given 02/23/2024 5:32 AM CDT 3 mLs $Given 02/22/2024 9:02 PM CDT 3 mLs $Given 02/22/2024 6:32 AM CDT 3 mLs sodium chloride 0.9 % bag 100mL Intravenous, 104 mL, ONCE, On Mon02/19/24 at 1750, For 1 dose, sodium chloride 0.9 % bag 100mL for CT scan flush use $Given 02/19/2024 5:59 PM CDT 100 mLs sodium chloride 0.9 % infusion at 100 mL/hr, Intravenous, CONTINUOUS, Starting on Mon02/19/24 at 2200, Until Mon02/21/24 at 1047 $New Bag 02/20/2024 11:55 PM CDT 100 mL/hr $New Bag 02/20/2024 11:12 AM CDT 100 mL/hr $New Bag 02/20/2024 1:11 AM CDT 100 mL/hr traZODone (DESYREL) tablet 100 mg 100 mg, Oral, AT BEDTIME PRN, sleep, Starting on Mon02/19/24 at 2152 $Given 02/21/2024 9:27 PM CDT 100 mg $Given 02/20/2024 9:47 PM CDT 100 mg documented in this encounter Active and Recently Administered Medications Times are shown in CDT. Scheduled Medication Order 02/21/2024 02/22/2024 02/23/2024 amLODIPine (NORVASC) tablet 5 mg 5 mg, Oral, DAILY, First dose on Mon02/22/24 at 1300, Hold for SBP < 130 1503 ($Given - Provider: Bel Platt RN) 1001 ($Given - Provider: Tha Elise, YOLIS) FLUoxetine (PROzac) capsule 40 mg 40 mg, Oral, DAILY, First dose on Mon02/20/24 at 0900 0908 ($Given - Provider: Bel Platt RN) 0924 ($Given - Provider: Bel Platt RN) 1001 ($Given - Provider: Tha Elise, YOLIS) gabapentin (NEURONTIN) tablet 1,200 mg 1,200 mg, Oral, AT BEDTIME, First dose on Mon02/22/24 at 2200 2101 ($Given - Provider: Herbert Gongora RN) heparin - BOLUS DOSE from infusion (COMPLETED) 3,000 Units, Intravenous, ONCE, On Mon02/21/24 at 0200, For 1 dose, IV PUMP PROGRAMMING: Program continuous infusion first, then program bolus dose. Infuse over 5 minutes. For Heparin Anti-Xa value 0.18-0.29 High Intensity Heparin Treatment- Anti-Xa monitoring Nurse to administer dose from existing infusion. If no infusion bag or syringe for this order is available, contact pharmacist to re-enter medication order. 0142 ($Given - Provider: Shiloh Watson RN) potassium chloride misa ER (KLOR-CON M20) CR tablet 40 mEq (COMPLETED) 40 mEq, Oral, ONCE, On Mon02/21/24 at 0130, For 1 dose, Potassium level 3.1 - 3.4 mmol/L Ordered from the Potassium replacement order set. DO NOT CRUSH, Potassium Replacement: Potassium level 3.1-3.4 mmol/L, Recheck: Potassium level 4 hours AFTER last oral dose 0143 ($Given - Provider: Shiloh Watson RN) potassium chloride misa ER (KLOR-CON M20) CR tablet 40 mEq (COMPLETED) 40 mEq, Oral, ONCE, On Sara 02/22/24 at 1000, For 1 dose, Potassium level 3.1 - 3.4 mmol/L Ordered from the Potassium replacement order set. DO NOT CRUSH, Potassium Replacement: Potassium level 3.1-3.4 mmol/L, Recheck: Potassium level 4 hours AFTER last oral dose 1503 ($Given - Provider: Bel Platt RN) risperiDONE (risperDAL) tablet 2 mg 2 mg, Oral, AT BEDTIME, First dose on Mon02/19/24 at 2200 2127 ($Given - Provider: Herbert Gongora RN) 2101 ($Given - Provider: Herbert Gongora RN) rivaroxaban ANTICOAGULANT (XARELTO) tablet 15 mg(Linked Group 1) 15 mg, Oral, 2 TIMES DAILY WITH MEALS, First dose on Mon02/21/24 at 1800, For 19 days, Indications: DVT-PE Treatment 1812 ($Given - Provider: Bel Platt RN) 0924 ($Given - Provider: Bel Platt RN)1858 ($Given - Provider: Bel Platt RN) 1001 ($Given - Provider: Tha Elise RN)1800 (Canceled Entry - Provider: Orders Generic Provider - Comment: Automatically canceled at discontinue of medication order) rivaroxaban ANTICOAGULANT (XARELTO) tablet 20 mg(Linked Group 1) 20 mg, Oral, DAILY WITH SUPPER, First dose on Mon03/11/24 at 1800, Indications: DVT-PE Treatment sodium chloride (PF) 0.9% PF flush 3 mL 3 mL, Intracatheter, EVERY 8 HOURS, First dose on Mon02/19/24 at 2200, to lock peripheral IV dormant line 0636 (Not Given - Provider: Shiloh Watson RN - Reason: IV Infusing)1456 (Not Given - Provider: Bel Platt RN - Reason: IV Infusing)2128 ($Given - Provider: Herbert Gongora RN) 0633 ($Given - Provider: Herbert Gongora RN)1714 (Canceled Entry - Provider: Bel Platt RN - Comment: already flushed)2103 (Canceled Entry - Provider: Herbert Gongora RN) 0532 (Canceled Entry - Provider: Herbert Gongora RN)1359 (Not Given - Provider: Tha Elise RN - Reason: No IV Access) sodium chloride (PF) 0.9% PF flush 3 mL 3 mL, Intracatheter, EVERY 8 HOURS, First dose on Mon02/19/24 at 2200, to lock peripheral IV dormant line 0636 (Not Given - Provider: Shiloh Watson RN - Reason: IV Infusing)1455 (Not Given - Provider: Bel Platt RN - Reason: IV Infusing)2127 ($Given - Provider: Herbert Gongora RN) 0632 ($Given - Provider: Herbert Gongora RN)1713 (Not Given - Provider: Bel Platt RN - Reason: Other)2102 ($Given - Provider: Herbert Gongora RN) 0532 ($Given - Provider: Herbert Gongora RN)1358 (Not Given - Provider: Tha Elise RN - Reason: No IV Access) Continuous Medication Order 02/21/2024 02/22/2024 02/23/2024 heparin 25,000 units in 0.45% NaCl 250 mL ANTICOAGULANT infusion () 0-5,000 Units/hr (0-50 mL/hr), Intravenous, CONTINUOUS, Starting on Mon02/19/24 at 1545, For 2 days 3 hours, Stop heparin drip when giving first dose of rivaroxaban. --Nurse to use Heparin Infusion ADULT Dose Adjustments by RN order set after EVERY heparin unfractionated Anti-Xa result to place further orders (for bolus if needed, infusion adjustment if needed, and ordering next lab)- Starting Infusion Rate = 1800 units/hr (Ordered: 02/19/2024) High Intensity Heparin Treatment WITH Boluses. GOAL: Heparin Xa (10a) LEVEL = 0.3-0.7 IU/mL IF HEPARIN INFUSION HELD FOR PROCEDURE: Restart heparin infusion at previous rate (no bolus needed). Nurse to place a one-time unfractionated heparin Anti-Xa lab order timed for 6 hours after heparin infusion was restarted., Heparin Therapy Type: High Intensity Heparin Infusion (Anti Xa 0.3-0.7) 0140 (Rate/Dose Change - Provider: Shiloh Watson RN)0228 ($New Bag - Provider: Joleen Newman RN)0911 (Rate/Dose Verify - Provider: Bel Platt RN)1144 ($New Bag - Provider: Bel Platt RN)1812 (Stopped - Provider: Bel Platt RN) PRN Medication Order 02/21/2024 02/22/2024 02/23/2024 acetaminophen (TYLENOL) Suppository 650 mg(Linked Group 2) 650 mg, Rectal, EVERY 4 HOURS PRN, mild pain, other, and adjunct with moderate or severe pain or per patient request, Starting on Mon02/19/24 at 2152, Alternate with ibuprofen if ordered. Maximum acetaminophen dose from all sources = 75 mg/kg/day not to exceed 4 grams/day. acetaminophen (TYLENOL) tablet 650 mg(Linked Group 2) 650 mg, Oral, EVERY 4 HOURS PRN, mild pain, other, and adjunct with moderate or severe pain or per patient request, Starting on Mon02/19/24 at 2152, Alternate with ibuprofen if ordered. Maximum acetaminophen dose from all sources = 75 mg/kg/day not to exceed 4 grams/day. calcium carbonate (TUMS) chewable tablet 1,000 mg 1,000 mg, Oral, 4 TIMES DAILY PRN, heartburn, Starting on Mon02/19/24 at 2152 Hold: Metformin and metformin containing medications on day of the procedure and for 48 hours after IV contrast given- Patients with acute kidney injury or severe chronic kidney disease (stage IV or stage V; i.e., eGFR less than 30) Medication(s) to hold: Metformin and metformin containing medications (see admin instructions), Parameter for hold (doses,days,conditions) : Other (see admin instructions), Hours or days to hold med before/after procedure/surgery: for 48 hours post procedure, HOLD, Starting on Mon02/20/24 at 1818, Until Mon02/23/24 at 1852, Metformin (GLUCOPHAGE, GLUMETZA, FORTAMET, RIOMET) and metformin containing medications:alogliptin/metformin (KAZANO), glipizide/metformin (METAGLIP), glyburide/metformin (GLUCOVANCE), rosiglitazone/metformin (AVANDAMET), dapagliflozin/metformin (XIGDUO XR), sitagliptin/metformin (JANUMET, JANUMET XR), linagliptin/metformin (JENTADUETO), repaglinidine/metformin (PRANDIMET), saxagliptin/metformin (KOMBIGLYZE XR), canagliflozin/metformin (INVOKAMET), pioglitazone/metformin (ACTOPLUS MET, ACTOPLUS MET XR). For patients with acute kidney injury or severe chronic kidney disease (stage IV or stage V; i.e., eGFR less than 30. If patient was on one of these medications pre-procedure, continue to HOLD for 48 hours post-procedure if patient received IV contrast. For patients with acute kidney injury or severe chronic kidney disease (stage IV or stage V; i.e., eGFR less than 30) hydrALAZINE (APRESOLINE) injection 10 mg 10 mg, Intravenous, EVERY 4 HOURS PRN, high blood pressure, for SBP >160, Administer over 1 Minutes, Starting on Mon02/21/24 at 0910 HYDROmorphone (DILAUDID) injection 0.2 mg 0.2 mg, Intravenous, EVERY 2 HOURS PRN, moderate pain, IF patient cannot take oral opioid OR IF pain not managed with non-pharmacological, non-opioid, or oral opioid interventions if ordered, Starting on Mon02/19/24 at 2152, May use concomitant with non-opioid analgesics. HYDROmorphone (DILAUDID) injection 0.4 mg 0.4 mg, Intravenous, EVERY 2 HOURS PRN, severe pain, IF patient cannot take oral opioid OR IF pain not managed with non-pharmacological, non-opioid, or oral opioid interventions if ordered, Starting on Mon02/19/24 at 2152, May use concomitant with non-opioid analgesics. hydrOXYzine floresita (VISTARIL) capsule 50 mg 50 mg, Oral, 3 TIMES DAILY PRN, anxiety, Starting on Mon02/21/24 at 0910 lidocaine (LMX4) cream Topical, EVERY 1 HOUR PRN, pain, with VAD insertion, Starting on Mon02/19/24 at 2152, Apply at least 30 minutes prior to VAD insertion in divided doses as needed for size of site for insertion. MAX Dose: 2.5 g (?? of 5 g tube) Do NOT give if patient has a history of allergy to any local anesthetic or any yuki product. Do NOT use both lidocaine intradermal/subcutaneous injection and the lidocaine cream on the same site. lidocaine 1 % 0.1-1 mL 0.1-1 mL, Other, EVERY 1 HOUR PRN, mild pain with VAD insertion, Starting on Mon02/19/24 at 2152, MAX dose 1 mL subcutaneous OR intradermal along the side of the vein in divided doses as needed for VAD insertion. Do NOT give if patient has a history of allergy to any local anesthetic or any yuki product. Do NOT use both lidocaine intradermal/subcutaneous injection and the lidocaine cream on the same site. naloxone (NARCAN) injection 0.2 mg(Linked Group 3) 0.2 mg, Intravenous, EVERY 2 MIN PRN, opioid reversal, Starting on Mon02/19/24 at 2147, Administer intravenous route when available and notify provider when administered. For unintended sedation or respiratory depression if all of the below criteria are met: ~ respiratory rate LESS than or EQUAL to 8. ~SaO2 less than 92% and or/end-tidal CO2 is greater than 50. ~ the patient is receiving an opioid, has unintended sedations assessed as RASS (-3), and is currently not on mechanical ventilation. RASS scale moderate (-3) is movement or eye opening to voice but no eye contact. Patient Monitoring Once the patient has demonstrated a response to the naloxone, continue to monitor respiratory rate, depth, oxygen saturation and end-tidal CO2 (if available) every 15 minutes x 2, then every 30 minutes x 2, then every 1 hour x 1 after each naloxone dose. Consider transfer to ICU if patient respiratory parameters have not improved after 4 naloxone doses. naloxone (NARCAN) injection 0.2 mg(Linked Group 3) 0.2 mg, Intramuscular, EVERY 2 MIN PRN, opioid reversal, Starting on Mon02/19/24 at 2147, Administer intramuscular if an intravenous route is not available and notify provider when administered. For unintended sedation or respiratory depression if all of the below criteria are met: ~ respiratory rate LESS than or EQUAL to 8. ~SaO2 less than 92% and or/end-tidal CO2 is greater than 50. ~ the patient is receiving an opioid, has unintended sedations assessed as RASS (-3), and is currently not on mechanical ventilation. RASS scale moderate (-3) is movement or eye opening to voice but no eye contact. Patient Monitoring Once the patient has demonstrated a response to the naloxone, continue to monitor respiratory rate, depth, oxygen saturation and end-tidal CO2 (if available) every 15 minutes x 2, then every 30 minutes x 2, then every 1 hour x 1 after each naloxone dose. Consider transfer to ICU if patient respiratory parameters have not improved after 4 naloxone doses. naloxone (NARCAN) injection 0.4 mg(Linked Group 3) 0.4 mg, Intravenous, EVERY 2 MIN PRN, opioid reversal, Starting on Mon02/19/24 at 2147, Administer intravenous route when available and notify provider when administered. For unintended sedation or respiratory depression if all of the below criteria are met: ~ respiratory rate LESS than or EQUAL to 8. ~ SaO2 less than 92% and or/end-tidal CO2 is greater than 50. ~ the patient is receiving an opioid, has unintended sedation assessed as RASS (-4) or (-5) and patient is currently not on mechanical ventilation. RASS scale (-4) is deep sedation with no response to voice but movement or eye opening to physical stimulation. RASS scale (-5) is unarousable. Patient Monitoring Once the patient has demonstrated a response to the naloxone, continue to monitor respiratory rate, depth, oxygen saturation and end-tidal CO2 (if available) every 15 minutes x 2, then every 30 minutes x 2, then every 1 hour x 1 after each naloxone dose. Consider transfer to ICU if patient respiratory parameters have not improved after 4 naloxone doses. naloxone (NARCAN) injection 0.4 mg(Linked Group 3) 0.4 mg, Intramuscular, EVERY 2 MIN PRN, opioid reversal, Starting on Mon02/19/24 at 2147, Administer intramuscular if an intravenous route is not available and notify provider when administered. For unintended sedation or respiratory depression if all of the below criteria are met: ~ respiratory rate LESS than or EQUAL to 8. ~ SaO2 less than 92% and or/end-tidal CO2 is greater than 50. ~ the patient is receiving an opioid, has unintended sedation assessed as RASS (-4) or (-5) and patient is currently not on mechanical ventilation. RASS scale (-4) is deep sedation with no response to voice but movement or eye opening to physical stimulation. RASS scale (-5) is unarousable. Patient Monitoring Once the patient has demonstrated a response to the naloxone, continue to monitor respiratory rate, depth, oxygen saturation and end-tidal CO2 (if available) every 15 minutes x 2, then every 30 minutes x 2, then every 1 hour x 1 after each naloxone dose. Consider transfer to ICU if patient respiratory parameters have not improved after 4 naloxone doses. ondansetron (ZOFRAN ODT) ODT tab 4 mg(Linked Group 4) 4 mg, Oral, EVERY 6 HOURS PRN, nausea, vomiting, Starting on Mon02/19/24 at 2152, This is Step 1 of nausea and vomiting management. If nausea not resolved in 15 minutes, go to Step 2 prochlorperazine (COMPAZINE). With dry hands, peel back foil backing and gently remove tablet. Do not push oral disintegrating tablet through foil backing. Administer immediately on tongue and oral disintegrating tablet dissolves in seconds, then swallow with saliva. Liquid not required. ondansetron (ZOFRAN) injection 4 mg(Linked Group 4) 4 mg, Intravenous, EVERY 6 HOURS PRN, nausea, vomiting, Administer over 2-5 Minutes, Starting on Mon02/19/24 at 2152, Give IF patient unable to tolerate oral medication. This is Step 1 of nausea and vomiting management. If nausea not resolved in 15 minutes, go to Step 2 prochlorperazine (COMPAZINE). Irritant. Patient is already receiving anticoagulation with heparin, enoxaparin (LOVENOX), warfarin (COUMADIN) or other anticoagulant medication CONTINUOUS PRN, Starting on Mon02/19/24 at 2152, Until Mon02/23/24 at 1852 senna-docusate (SENOKOT-S/PERICOLACE) 8.6-50 MG per tablet 1 tablet(Linked Group 5) 1 tablet, Oral, 2 TIMES DAILY PRN, constipation, Starting on Mon02/19/24 at 2152, If no bowel movement in 24 hours, increase to 2 tablets by mouth. IF more than 1 constipation PRN medication is ordered, administer step-ackerman as indicated, moving to the next step ONLY if prior step ineffective. Step 1: senna-docusate (SENOKOT-S; PERICOLACE) OR bisacodyl (DULCOLAX) EC tablet Step 2: polyethylene glycol (MIRALAX/GLYCOLAX) Step 3: bisacodyl (DULCOLAX) suppository Step 4: enema Hold for loose stools. senna-docusate (SENOKOT-S/PERICOLACE) 8.6-50 MG per tablet 2 tablet(Linked Group 5) 2 tablet, Oral, 2 TIMES DAILY PRN, constipation, Starting on Mon02/19/24 at 2152, IF more than 1 constipation PRN medication is ordered, administer step-ackerman as indicated, moving to the next step ONLY if prior step ineffective. Step 1: senna-docusate (SENOKOT-S; PERICOLACE) OR bisacodyl (DULCOLAX) EC tablet Step 2: polyethylene glycol (MIRALAX/GLYCOLAX) Step 3: bisacodyl (DULCOLAX) suppository Step 4: enema Hold for loose stools. sodium chloride (PF) 0.9% PF flush 3 mL 3 mL, Intracatheter, EVERY 1 MIN PRN, line flush, other, to ensure patency or to lock dormant line, Starting on Mon02/19/24 at 2152 traZODone (DESYREL) tablet 100 mg 100 mg, Oral, AT BEDTIME PRN, sleep, Starting on Mon02/19/24 at 2152 2127 ($Given - Provider: Herbert Gongora RN) Linked Groups Order Group 1: rivaroxaban ANTICOAGULANT (XARELTO) tablet 15 mgJump to med 15 mg, Oral, 2 TIMES DAILY WITH MEALS, First dose on Mon02/21/24 at 1800, For 19 days, Indications: DVT-PE Treatment Followed by rivaroxaban ANTICOAGULANT (XARELTO) tablet 20 mgJump to med 20 mg, Oral, DAILY WITH SUPPER, First dose on Mon03/11/24 at 1800, Indications: DVT-PE Treatment Group 2: acetaminophen (TYLENOL) tablet 650 mgJump to med 650 mg, Oral, EVERY 4 HOURS PRN, mild pain, other, and adjunct with moderate or severe pain or per patient request, Starting on Mon02/19/24 at 2152, Alternate with ibuprofen if ordered. Maximum acetaminophen dose from all sources = 75 mg/kg/day not to exceed 4 grams/day. Or acetaminophen (TYLENOL) Suppository 650 mgJump to med 650 mg, Rectal, EVERY 4 HOURS PRN, mild pain, other, and adjunct with moderate or severe pain or per patient request, Starting on Mon02/19/24 at 2152, Alternate with ibuprofen if ordered. Maximum acetaminophen dose from all sources = 75 mg/kg/day not to exceed 4 grams/day. Group 3: naloxone (NARCAN) injection 0.2 mgJump to med 0.2 mg, Intravenous, EVERY 2 MIN PRN, opioid reversal, Starting on Mon02/19/24 at 2147, Administer intravenous route when available and notify provider when administered. For unintended sedation or respiratory depression if all of the below criteria are met: ~ respiratory rate LESS than or EQUAL to 8. ~SaO2 less than 92% and or/end-tidal CO2 is greater than 50. ~ the patient is receiving an opioid, has unintended sedations assessed as RASS (-3), and is currently not on mechanical ventilation. RASS scale moderate (-3) is movement or eye opening to voice but no eye contact. Patient Monitoring Once the patient has demonstrated a response to the naloxone, continue to monitor respiratory rate, depth, oxygen saturation and end-tidal CO2 (if available) every 15 minutes x 2, then every 30 minutes x 2, then every 1 hour x 1 after each naloxone dose. Consider transfer to ICU if patient respiratory parameters have not improved after 4 naloxone doses. Or naloxone (NARCAN) injection 0.4 mgJump to med 0.4 mg, Intravenous, EVERY 2 MIN PRN, opioid reversal, Starting on Mon02/19/24 at 2147, Administer intravenous route when available and notify provider when administered. For unintended sedation or respiratory depression if all of the below criteria are met: ~ respiratory rate LESS than or EQUAL to 8. ~ SaO2 less than 92% and or/end-tidal CO2 is greater than 50. ~ the patient is receiving an opioid, has unintended sedation assessed as RASS (-4) or (-5) and patient is currently not on mechanical ventilation. RASS scale (-4) is deep sedation with no response to voice but movement or eye opening to physical stimulation. RASS scale (-5) is unarousable. Patient Monitoring Once the patient has demonstrated a response to the naloxone, continue to monitor respiratory rate, depth, oxygen saturation and end-tidal CO2 (if available) every 15 minutes x 2, then every 30 minutes x 2, then every 1 hour x 1 after each naloxone dose. Consider transfer to ICU if patient respiratory parameters have not improved after 4 naloxone doses. Or naloxone (NARCAN) injection 0.2 mgJump to med 0.2 mg, Intramuscular, EVERY 2 MIN PRN, opioid reversal, Starting on Mon02/19/24 at 2147, Administer intramuscular if an intravenous route is not available and notify provider when administered. For unintended sedation or respiratory depression if all of the below criteria are met: ~ respiratory rate LESS than or EQUAL to 8. ~SaO2 less than 92% and or/end-tidal CO2 is greater than 50. ~ the patient is receiving an opioid, has unintended sedations assessed as RASS (-3), and is currently not on mechanical ventilation. RASS scale moderate (-3) is movement or eye opening to voice but no eye contact. Patient Monitoring Once the patient has demonstrated a response to the naloxone, continue to monitor respiratory rate, depth, oxygen saturation and end-tidal CO2 (if available) every 15 minutes x 2, then every 30 minutes x 2, then every 1 hour x 1 after each naloxone dose. Consider transfer to ICU if patient respiratory parameters have not improved after 4 naloxone doses. Or naloxone (NARCAN) injection 0.4 mgJump to med 0.4 mg, Intramuscular, EVERY 2 MIN PRN, opioid reversal, Starting on Mon02/19/24 at 2147, Administer intramuscular if an intravenous route is not available and notify provider when administered. For unintended sedation or respiratory depression if all of the below criteria are met: ~ respiratory rate LESS than or EQUAL to 8. ~ SaO2 less than 92% and or/end-tidal CO2 is greater than 50. ~ the patient is receiving an opioid, has unintended sedation assessed as RASS (-4) or (-5) and patient is currently not on mechanical ventilation. RASS scale (-4) is deep sedation with no response to voice but movement or eye opening to physical stimulation. RASS scale (-5) is unarousable. Patient Monitoring Once the patient has demonstrated a response to the naloxone, continue to monitor respiratory rate, depth, oxygen saturation and end-tidal CO2 (if available) every 15 minutes x 2, then every 30 minutes x 2, then every 1 hour x 1 after each naloxone dose. Consider transfer to ICU if patient respiratory parameters have not improved after 4 naloxone doses. Group 4: ondansetron (ZOFRAN ODT) ODT tab 4 mgJump to med 4 mg, Oral, EVERY 6 HOURS PRN, nausea, vomiting, Starting on Mon02/19/24 at 2152, This is Step 1 of nausea and vomiting management. If nausea not resolved in 15 minutes, go to Step 2 prochlorperazine (COMPAZINE). With dry hands, peel back foil backing and gently remove tablet. Do not push oral disintegrating tablet through foil backing. Administer immediately on tongue and oral disintegrating tablet dissolves in seconds, then swallow with saliva. Liquid not required. Or ondansetron (ZOFRAN) injection 4 mgJump to med 4 mg, Intravenous, EVERY 6 HOURS PRN, nausea, vomiting, Administer over 2-5 Minutes, Starting on Mon02/19/24 at 2152, Give IF patient unable to tolerate oral medication. This is Step 1 of nausea and vomiting management. If nausea not resolved in 15 minutes, go to Step 2 prochlorperazine (COMPAZINE). Irritant. Group 5: senna-docusate (SENOKOT-S/PERICOLACE) 8.6-50 MG per tablet 1 tabletJump to med 1 tablet, Oral, 2 TIMES DAILY PRN, constipation, Starting on Mon02/19/24 at 2152, If no bowel movement in 24 hours, increase to 2 tablets by mouth. IF more than 1 constipation PRN medication is ordered, administer step-ackerman as indicated, moving to the next step ONLY if prior step ineffective. Step 1: senna-docusate (SENOKOT-S; PERICOLACE) OR bisacodyl (DULCOLAX) EC tablet Step 2: polyethylene glycol (MIRALAX/GLYCOLAX) Step 3: bisacodyl (DULCOLAX) suppository Step 4: enema Hold for loose stools. Or senna-docusate (SENOKOT-S/PERICOLACE) 8.6-50 MG per tablet 2 tabletJump to med 2 tablet, Oral, 2 TIMES DAILY PRN, constipation, Starting on Mon02/19/24 at 2152, IF more than 1 constipation PRN medication is ordered, administer step-ackerman as indicated, moving to the next step ONLY if prior step ineffective. Step 1: senna-docusate (SENOKOT-S; PERICOLACE) OR bisacodyl (DULCOLAX) EC tablet Step 2: polyethylene glycol (MIRALAX/GLYCOLAX) Step 3: bisacodyl (DULCOLAX) suppository Step 4: enema Hold for loose stools. documented in this encounter Additional Health Concerns Assessment Noted Time PHQ-9 Depression Total Score: 24 024 11:07 AM CDT documented as of this encounter Care Teams Machine Burrer Relationship Specialty Start Date End Date Valentin Muñoz MD [address] [facility] [place] [address] PCP - General Internal Medicine 10/08/10 Valentin Muñoz MD [facility] [facility] [place] [address] Assigned PCP 10/03/16 documented as of this encounter
--- OUTSIDE RECORDS SUMMARY | 2024-03-09 10:50 | XMS_ITS | Encounter Summary ---
Author Organization [place] Address [address] [place] [address] Care Team Providers Care Jewel Diameter Gauger Name Role Phone Valentin Muñoz MD Primary Care Provider [phone] Valentin Muñoz MD Unavailable [phone] Reason for Referral * Diagnostic Imaging Ultrasound (Routine) - Pending Review Specialty Diagnoses / Procedures Referred By Jazzy arndt Referred To Contact Radiology. Diagnoses Right calf pain Procedures US Lower Extremity Venous Duplex Right Valentin Muñoz MD [address] [place] [address] Referral ID Status Reason Start Date Expiration Date V isits Requested Visits Authorized [id number] Pending Review 02/19/2024 02/18/2025 1 1 Reason for Visit * Auth/Cert Specialty Diagnoses / Procedures Referred By Jazzy arndt Referred To Contact EMERGENCY MEDICINE Diagnoses Acute deep vein thrombosis (DVT) of iliac vein of right lower extremity (H) Acute saddle pulmonary embolism with acute cor pulmonale (H) Emergency Dept [address] [place] [address] Referral ID Status Reason Start Date Expiration Date Visits Re quested Visits Authorized [id number] 1 1 Encounter Details Date Type Department Care Team (Latest Contact Info) Description 02/19/2024 2:37 PM CDT - 02/19/2024 3:31 PM CDT Hospital Encounter [facility] [address] [place] [phone] Valentin Muñoz MD [address] [facility] [place] [phone] Right calf pain Discharge Disposition: Home or Self Care Social [...] How often do you attend chur or evangelical services? More than 4 times per year 04/04/2023 Do you belong to any clubs o r organizations such as anabaptist groups, unions, fraternal or athletic groups, or [...] Answer Date Recorded PHQ-2 Score 2 02/19/2024 [facility] [place] [facility] Occupat ional Health - Occupational Stress [...] patient request) 02/22/2024 amLODIPine (NORVASC) 10 MG tabletIndications:Essen tial hypertension Take 1 tablet (10 mg) by mouth daily HOLD IF SBP <130 90 tablet 3 02/23/2024 FLUoxetine (PROZAC) 40 MG capsule Take 40 mg by mouth daily 02/07/2024 gabapentin (NEURONTIN) 600 MG tabletIndications:CAORLE (generalized anxiety disorder) Take 2 tablets (1,200 [...] 02/06/2024 rivaroxaban ANTICOAGULANT (XARELTO) 2.5 MG TABS tabletIndications:DVT-P E Treatment Take 6 tablets (15 mg) by mouth 2 times daily (with meals) for 19 days, THEN 8 tablets (20 mg) daily (with dinner) for 30 days. 468 tablet 02/22/2024 04/11/2024 traZODone (DESYREL) 100 MG tablet Take 100 mg by mouth at bedtime 02/06/2024 amLODIPine (NORVASC) 10 MG tabletIndications:Essen tial hypertension Take 1 tablet (10 mg) by mouth daily HOLD IF SBP <130 90 tablet 3 02/22/2024 02/23/2024 amLODIPine (NORVASC) 10 MG tabletIndications:Essen tial hypertension TAKE 1 TABLET DAILY (OFFICE VISIT NEEDED PRIOR TO ADDITIONAL REFILLS) 90 tablet 3 02/23/2023 02/22/2024 amLODIPine (NORVASC) 5 MG tabletIndications:Essen tial hypertension Take 1 tablet (5 mg) by mouth daily 30 tablet 2 02/24/2024 02/23/2024 lisinopril-hydrochlorot hiazide (ZESTORETIC) 20-25 MG tabletIndications:Essen tial hypertension TAKE 2 TABLETS DAILY 180 tablet 3 02/27/2023 02/22/2024 potassium chloride misa ER (KLOR-CON M10) 10 MEQ CR tablet Take 10 mEq by mouth daily 02/06/2024 02/22/2024 documented as of this encounter Plan of Treatment Upcoming Encounters Date Type Department Care Team (Late st Contact Info) Description 04/01/2024 2:00 PM CDT Appointment [facility] [address] [place] [address] Omero Pham MD [facility] [address] [place] [address] 04/01/2024 2:40 PM CDT Office Visit [facility] [place] [address] [place] [phone] Omero Pham MD [facility] [address] [place] [address] 04/09/2024 2:00 PM CDT Office Visit [facility] [address] [place] [phone] Valentin Muñoz MD [address] [place] [address] Roro Acevedo PA-C [address] [place], [place] [address] 06/18/2024 12:00 PM CDT Virtual Visit [facility] [place] [address] [place] [phone] Josephine Krishnan PA-C [address] [place] [phone] documented as of this encounter Procedures Procedure Name Priority Date/Time Associated Diagnosis Comments US LOWER EXTREMITY VENOUS DUPLEX RIGHT STAT 02/19/2024 3:09 PM CDT Right calf pain documented in this encounter Results * US Lower Extremity Venous Duplex Right [...] color flow and augmentation. Procedure Note Gali Giles, - 02/19/2024 US LOWER EXTREMITY VENOUS DUPLEX [...] breath. GALI GILES DO Valentin Muñoz MD IMG US ORDERABLES documented in this encounter Visit Diagnoses Diagnosis Right calf pain documented in this encounter Additional Health Concerns Assessment Noted Time PHQ-9 Depression Total Score: 24 01/23/ 024 11:07 AM CDT documented as of this encounter Care Teams Jewel Diameter Gauger Relationship Specialty Start Date End Date Valentin Muñoz MD [address] [place] [place] [address] [place] [address] PCP - General Internal Medicine 10/08/10 Valentin Muñoz MD [address] [place] [place] [address] [place] [address] Assigned PCP 10/03/16 documented as of this encounter
--- OUTSIDE RECORDS SUMMARY | 2024-03-09 10:50 | XMS_ITS | Encounter Summary ---
Author Organization [place] Address [address] [place] [address] Care Team Providers Care Cut Off Saw Operator Name Role Phone Valentin Muñoz MD Primary Care Provider [phone] Valentin Muñoz MD Unavailable [phone] Reason for Referral * Diagnostic Imaging CT Scan (Routine) - Closed Specialty Diagnoses / Procedures Referred By Contac t Referred To Contact Radiology. 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 Diagnoses Right calf pain Procedures US Lower Extremity Venous Duplex Right Valentin Muñoz MD [address] [place] [address] [place] [address] Referral ID Status Reason Start Date Expiration Date V isits Requested Visits Authorized [id number] Pending Review 02/19/2024 02/18/2025 1 1 Reason for Visit * Reason Comments Hospital F/U Musculoskeletal Problem Right Calf pain x 5 days Encounter Details Date Type Department Care Team (Late st Contact Info) Description 02/19/2024 7:00 AM CDT Office Visit [facility] [place] [address] [place] [phone] Valentin Muñoz MD [address] [facility] [place] [address] 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) (Primary Dx); Right calf pain Social History Tobacco Use Types Packs/Day Years [...] How often do you attend chur or muslim services? More than 4 times per year 04/04/2023 Do you belong to any clubs o r organizations such as lutheran groups, unions, fraternal or athletic groups, or [...] Answer Date Recorded PHQ-2 Score 2 02/19/2024 [facility] - Occupational Stress Questionnaire Answer Date [...] place to sleep or slept in a half-way (including now)? No 04/04/2023 Adolescent Education Answer Date Record ed Getting School Help Needed Not on file 06/02 Sex and Gender Information Value Date Recorded Sex Assigned at Not on file Gender Identity Not on file Sexual Orientation Not on file documented as of this encounter Last Filed Vital Signs Vital Sign Reading Time Taken Comments Blood Pressure 109/73 02/19/2024 7:04 AM CDT Pulse 121 02/19/2024 7:04 AM CDT Temperature 36 ??C (96.8 ??F) 02/19/2024 7:04 AM CDT Respiratory Rate 22 02/19/2024 7:04 AM CDT Oxygen Saturation 95% 02/19/2024 7:04 AM CDT Inhaled Oxygen Concentration - - Weight 171.5 kg (378 lb 1.6 oz) 02/19/2024 7:04 AM CDT Height 182.9 cm (6') 02/19/2024 7:04 AM CDT Body Mass Index 51.28 02/19/2024 7:04 AM CDT documented in this encounter Progress Notes * Valentin Muñoz MD - 02/19/2024 7:00 AM [...] his baseline. 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 Is reasonable to order SENIOR JAVA WEB DEVELOPER imaging to ensure he doesnot have a [...] is taking medications regularly. Hospital Follow-up Visit: Hospital/Halfway/IP Rehab Facility: [facility] Date of Admission: 02/02/2024 Date of Discharge: [...] RLE Signed Electronically by: Valentin Muñoz MD documented in this encounter Plan of Treatment Upcoming Encounters Date Type Department Care Team (Late st Contact Info) Description 04/01/2024 2:[address] [facility] [address] [place] [phone] Omero Pham MD [facility] [address] [place], [place] [phone] 04/01/2024 2:40 PM CDT Office Visit [facility] [place] [address] [place] [phone] Omero Pham MD [facility] [address] [place], [place] [address] 04/09/2024 2:00 PM CDT Office [facility] [address] [place] [phone] Valentin Muñoz MD [address] [place] [address] Roro Acevedo PA-C [address] [place], [place] [address] 06/18/2024 12:00 PM CDT Virtual Visit [facility] [place] [address] [place] [phone] Josephine Krishnan PA-C [address] [place], [place] [phone] documented as of this encounter Results * CT Head w/o [...] Valentin Muñoz MD IMG CT ORDERABLES * US Lower Extremity Venous Duplex Right [...] breath. 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
--- OUTSIDE RECORDS SUMMARY | 2024-03-09 10:50 | XMS_ITS | Encounter Summary ---
Author Organization [facility] Address [address] [place] [address] Care Team Providers Care Silo Erector Name Role Phone Valentin Muñoz MD Primary Care Provider [phone] Valentin Muñoz MD Unavailable [phone] Encounter Details Date Type Department Care Team (Late st Contact Info) Description 02/21/2024 Telephone [facility] [address] [place] [phone] Rissa Donohue Social History Tobacco Use Types Packs/Day Years [...] often do you attend chur ch or hindu services? More than 4 times per year 04/04/2023 Do you belong to any clubs o r organizations such as oriental orthodox groups, unions, fraternal or athletic groups, or [...] Answer Date Recorded PHQ-2 Score 2 02/19/2024 [facility] Occupat ional Health - Occupational [...] place to sleep or slept in a usp (including now)? No 04/04/2023 Adolescent Education Answer [...] Info) Description 04/01/2024 2:00 PM CDT Appointment [facility] [address] [place] [address] Omero Pham MD [facility] [address] [place] [address] 04/01/2024 2:40 PM CDT Office Visit [facility] [place] [address] [place] [phone] Omero Pham MD [facility] [address] [place] [address] 04/09/2024 2:00 PM CDT Office Visit [facility] [address] [facility] [address] [place] [phone] Valentin Muñoz MD [address] [facility] [address] [place] [phone] Roro Acevedo PA-C [address] [place], [place] [address] 06/18/2024 12:00 PM CDT Virtual Visit [facility] [place] [address] [place] [phone] Josephine Krishnan PA-C [address] [place], [place] [address] documented as of this encounter Visit Diagnoses Not on filedocumented in this encounter Additional Health Concerns Assessment Noted Time PHQ-9 Depression Total Score: 24 01/23/ 024 11:07 AM CDT documented as of this encounter Care Teams Silo Erector Relationship Specialty Start Date End Date Valentin Muñoz MD [address] [place] [address] [place] [address] PCP - General Internal Medicine 10/08/10 Valentin Muñoz MD [address] [place] [address] [place] [address] Assigned PCP 10/03/16 documented as of this encounter
--- OUTSIDE RECORDS SUMMARY | 2024-03-09 10:50 | XMS_ITS | Encounter Summary ---
Author Organization [place] Address [address] [place] [address] Care Team Providers Care Supervisor Belt And Link Assembly Name Role Phone Valentin Muñoz MD Primary Care Provider Valentin Muñoz MD Unavailable [phone] Encounter Details Date Type Department Care Team (Latest Contact Info) Description 02/18/2024 Travel Social History Tobacco Use Types Packs/Day [...] week 04/04/2023 How often do you attend [facility] or islam services? More than 4 times per year 04/04/2023 Do you belong to any clubs o r organizations such as mormonism groups, unions, fraternal or athletic groups, or [...] Answer Date Recorded PHQ-2 Score 2 02/19/2024 [facility] Questionnaire Answer Date [...] place to sleep or slept in a intermediate (including now)? No 04/04/2023 Adolescent Education Answer [...] Info) Description 04/01/2024 2:00 PM CDT Appointment [facility] [address] [place] [address] Omero Pham MD [facility] [address] [place] [address] 04/01/2024 2:40 PM CDT Office Visit [facility] [place] [address] [place] [phone] Omero Pham MD [facility] [address] [place], [place] [address] 04/09/2024 2:00 PM CDT Office Visit [facility] [address] [place] [address] Valentin Muñoz MD [address] [facility] [address] [place] [phone] Roro Acevedo PA-C [address] [place], [place] [address] 06/18/2024 12:00 PM CDT Virtual Visit [facility] [place] [address] [place] [phone] Josephine Krishnan PA-C [address] [place], [place] [address] documented as of this encounter Visit Diagnoses Not on filedocumented in this encounter Additional Health Concerns Assessment Noted Time PHQ-9 Depression Total Score: 24 024 11:07 AM CDT documented as of this encounter Care Teams Supervisor Belt And Link Assembly Relationship Specialty Start Date End Date Valentin Muñoz MD [address] [facility] [place] [address] PCP - General Internal Medicine 10/08/10 Valentin Muñoz MD [address] [facility] [place] [address] Assigned PCP 10/03/16 documented as of this encounter
--- OUTSIDE RECORDS SUMMARY | 2024-03-09 10:50 | XMS_ITS | Encounter Summary ---
Author Organization [facility] Address [address] [place] [address]. [place] [address] Care Team Providers Care Machine Precision Etcher Name Role Phone Valentin Muñoz MD Primary Care Provider [phone] Valentin Muñoz MD Unavailable [phone] Reason for Visit * Reason Comments Suicidal * Auth/Cert (Routine) Specialty Diagnoses / Procedures Referred By Contac t Referred To Contact EMERGENCY MEDICINE Diagnoses Suicidal ideation MDD (major depressive disorder), recurrent episode, severe (H) Psychosis, unspecified psychosis type (H) Insomnia, unspecified type Emergency Dept [address] [place] [address] Referral ID Status Reason Start Date Expiration Date Visits Re quested Visits Authorized [id number] 1 1 Encounter Details Date Type Department Care Team (Late st Contact Info) Description 01/30/2024 11:25 AM CDT - 02/02/2024 9:05 AM CDT Emergency [facility] Emergency Dept [address] [place] [address] Mark Vidales MD [facility] [address] [place] [address] Landon Lombardi, [employer] [address] [place] [address] Rene Triplett MD [address] [facility] [place] [address] Suicidal ideation; MDD (major depressive disorder), recurrent episode, severe (H); Psychosis, unspecified psychosis type (H); Insomnia, unspecified type Discharge Disposition: Psychiatric Hospital Social History Tobacco Use Types Packs/Day Years [...] How often do you attend chur or taoism services? More than 4 times per year 04/04/2023 Do you belong to any clubs o r organizations such as amish groups, unions, fraternal or athletic groups, or [...] Answer Date Recorded PHQ-2 Score 4 01/24/2024 [facility] [place] of Occupat ional Health - Occupational Stress [...] place to sleep or slept in a mcc (including now)? No 04/04/2023 Adolescent Education Answer Date Record ed Getting School Help Needed Not on file 06/02 Sex and Gender Information Value Date Recorded Sex Assigned at Not on file Gender Identity Not on file Sexual Orientation Not on file documented as of this encounter Last Filed Vital Signs Vital Sign Reading Time Taken Comments Blood Pressure 118/80 02/02/2024 7:51 AM CDT Pulse 98 02/02/2024 7:51 AM CDT Temperature 36.8 ??C (98.3 ??F) 02/02/2024 7:51 AM CD T Respiratory Rate 18 02/02/2024 7:51 AM CDT Oxygen Saturation 96% 02/01/2024 8:00 AM CDT Inhaled Oxygen Concentration - - Weight 173.1 kg (381 lb 11.2 oz) 01/30/2024 3:50 PM CDT Height 182.9 cm (6') 01/30/2024 3:50 PM CDT Body Mass Index 51.77 01/30/2024 3:50 PM CDT documented in this encounter Medications at Time of Discharge Medication Sig Dispensed Refills Start Date End Date LORazepam (ATIVAN) 1 MG tablet Take 1 mg by mouth daily as needed for anxiety amLODIPine (NORVASC) 10 MG tabletIndications:Esse ntial hypertension TAKE 1 TABLET DAILY (OFFICE VISIT NEEDED PRIOR TO ADDITIONAL REFILLS) 90 tablet 3 02/23/2023 02/22/2024 gabapentin (NEURONTIN) 800 MG tablet Take 1 tablet (800 mg) by mouth at bedtime 30 tablet 01/18/2024 02/19/2024 lisinopril-hydrochloro thiazide (ZESTORETIC) 20-25 MG tabletIndications:Esse ntial hypertension TAKE 2 TABLETS DAILY 180 tablet 3 02/27/2023 02/22/2024 OLANZapine (ZYPREXA) 10 MG tablet Take 1 tablet (10 mg) by mouth at bedtime 14 tablet 12/08/2023 02/19/2024 documented as of this encounter Progress Notes * Angeline Sherwood RN - 02/02/2024 9:04 AM CDT EMS here to transport patient. Harinder LAGOS at [facility] [address] notified of his transport. Tatyana notified of patients transfer per patient request. * Angeline Sherwood RN - 02/02/2024 8:13 AM CDT redraw of potassium is 3.4 pot Report called to Harinder Duron on [address] [facility]. * Gustavo Miranda - 02/01/2024 11:11 PM CDT Triage & Transition Services, Extended Care Therapy Progress Note Patient: Ant goes by Ant, uses he/him pronouns Date of Service: February 01, 2024 Site of Service: [facility] EMERGENCY DEPT EMP01 Patient was seen yes Mode of Assessment: In person Presentation Summary: Patient was pleasant and agreeable to meeting with administrative underwriter today. He states today was a hard day, and he struggled to get any sleep last night. He says he feel like he is walking and feeling like a zombie, that he can't settle or get comfortable. Patient continues to endorse depressive sx and SI to administrative underwriter, reports he feels like not much has changed in his sx. He is agreeable to [facility], however states he wants to be out of [facility] by Monday because it is hard to get any rest here. Therapeutic Intervention(s) Provided: Identified and practiced coping skills., Discussed TIP (body temperature, intense exercise, PMR)., Discussed and practiced mindfulness., Taught the link between thoughts, feelings, and behaviors., Engaged in guided discovery, explored patient's perspectives and helped expand them through socratic dialogue. Current Symptoms: anxious apathy, low self esteem, helplessness, sadness, thoughts of /suicideanxious inattentive, psychomotor retardation Mental Status Exam Affect: Flat, Blunted Appearance: Appropriate Attention Span/Concentration: Attentive Eye Contact: Engaged Fund of Knowledge: Appropriate Language /Speech Content: Fluent Language /Speech Volume: Soft Language /Speech Rate/Productions: Slow Recent Memory: Variable Remote Memory: Variable Mood: Apathetic, Depressed Orientation to Person: Yes Orientation to Place: Yes Orientation to Time of Day: Yes Orientation to Date: Yes Situation (Do they understand why they are here?): Yes Psychomotor Behavior: Normal Thought Content: Suicidal Thought Form: Obsessive/Perseverative Treatment Objective(s) Addressed: rapport building, assessing safety, exploring obstacles to safetyin the community, identifying treatment goals, processing feelings, building distress tolerance, identifying and practicing coping strategies Patient Response to Interventions: acceptance expressed, verbalizes understanding Progress Towards Goals: Patient Reports Symptoms Are: ongoing Patient Progress Toward Goals: is not making progress Comment: Patient reports today was a really challenging day, worse than yesterday due to minimal low quality sleep last night. Next Step to Work Toward Discharge: patient ability to engage in safety planning, symptom stabilization Symptom Stabilization Comment: Pt continues to endorse SI and depressive sx. Ability to Engage Comment: Have Pt complete an aftercare/safety plan and schedule with outpatient resources. Case Management: Case Management Included: skills work Details on skills work: mindfullness, DBT skills, self-care Summary of Interaction: Psychoeducation: TIPP skills, sleep hygiene, and grounding exercises Plan: inpatient mental health yes RN, psych associate Clinical Substantiation: Patient continues to be recommended for IP. Patient initially reported good sleep on his first night here, then last night struggled to get any rest and felt like any progress in his sx was lost today. His affect is flat, perseverative on sleep disturbance, and continues to endorse SI. Patient was not able to engage in safety planning today. He was receptive to grounding exercises. Patient is feeling hopeless. Patient would benefit from transferring to [facility] unit for safety and stabilization of sx. Legal Status: Legal Status at Admission: Voluntary/Patient has signed consent for treatment Session Status: Time session started: 1829 Time session ended: 1849 Session Duration (minutes): 20 minutes Session Number: 2 Anticipated number of sessions or this episode of care: 4 Time Spent: 20 minutes CPT Code: CPT Codes: 57779 - Psychotherapy (with patient) - 30 (16-37*) min Diagnosis: Patient Active Problem List Diagnosis Code Hypertension I10 Morbid obesity (H) E66.01 FAITH (obstructive sleep apnea) G47.33 Psychosis, unspecified psychosis type (H) F29 Anxiety F41.9 Paranoia (H) F22 Insomnia due to other mental disorder F51.05, F99 Hypokalemia E87.6 Adjustment disorder with anxious mood F43.22 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) F33.2 CAROLE (generalized anxiety disorder) F41.1 Suicidal ideation R45.851 MDD (major depressive disorder), recurrent episode, severe (H) F33.2 Insomnia, unspecified type G47.00 Primary Problem This Admission: Active Hospital Problems CAROLE (generalized anxiety disorder) Suicidal ideation MDD (major depressive disorder), recurrent episode, severe (H) *Insomnia, unspecified type Psychosis, unspecified psychosis type (H) Gustavo Miranda Licensed Mental Health Professional (LMHP), [facility] [phone] * Nayla Vickers RN - 02/01/2024 10:40 PM CDT Intake called, Patient got accepted to inpatient at [facility] unit [address]. Win[facility] requested Na dick withdrawn, since it was low (3.1) lat time. Lab is processing it. * Nayla Vickers RN - 02/01/2024 9:32 PM CDT Patient still restless, he is concerned that he can't fully fall asleep. Supervisor Last Model Department offered OMAYRA Gomez he decliner that as for now he would like to just keep having he is regural meds. Spent most of his day in the milieu waling around. * Nayla Vickers RN - 02/01/2024 7:52 PM CDT Patient meeting with LMHP now. * Ivory Florez LMFT - 02/01/2024 7:47 AM CDT IP MH Referral Acuity Rating Score (RARS) LMHP complete at referral to IP MH, with DEC; and, daily while awaiting IP MH placement. Call scoreto PPS. CRITERIA SCORING New 72 HH and Involuntary for IP MH (not adolescent) 0/1 Boarding over 24 hours 1/1 Vulnerable adult at least 55+ with multiple co morbidities; or, Patient age 11 or under 0/1 Suicide ideation without relief of precipitating factors 1/1 Current plan for suicide 0/1 Current plan for homicide 0/1 Imminent risk or actual attempt to seriously harm another without relief of factors precipitating the attempt 0/1 Severe dysfunction in daily living (ex: complete neglect for self care, extreme disruption in vegetative function, extreme deterioration in social interactions) 1/1 Recent (last 2 weeks) or current physical aggression in the ED 0/1 Restraints or seclusion episode in ED 0/1 Verbal aggression, agitation, yelling, etc., while in the ED 0/1 Active psychosis with psychomotor agitation or catatonia 0/1 Need for constant or near constant redirection (from leaving, from others, etc). 0/1 Intrusive or disruptive behaviors 0/1 TOTAL Acuity Total Score: 3 * Nayla Vickers RN - 01/31/2024 9:11 PM CDT Pt been resting on the recliner chair. Calm and cooperative with Meds and VSS. Pt wasn't happy about not getting a bed at [facility]. Staff explain to him. That he is still on waiting list. Denies any SI/HI. * Nayla Vickers RN - 01/31/2024 6:02 PM CDT Intake called, they wont be admitting Patient on [facility], due to the Patient weight. he needs bariatric bed, and as of now they don't have any room with it. Intake will put him back on the wait list. * Dulce Maria Lund [facility] - 01/31/2024 3:04 PM CDT Triage & Transition Services, Extended Care Therapy Progress Note Patient: Ant goes by Ant, uses he/him pronouns Date of Service: January 31, 2024 Site of Service: [facility] EMERGENCY DEPT EMP01 Patient was seen yes Mode of Assessment: In person Presentation Summary: Pt presented with a depressed and blunted affect. Pts mood was congruent withthis presentation. Pt was oriented x4. Pt was engaged and cooperative with assessment. Pt was at times slow to respond and speech was slow but Pt endorsed feeling more engaged. Pt endorsed ongoing thoughts of suicide but no specific plan. Pt endorsed, I can't hurt myself here. Pt endorsed that he also has been feeling more anxious and restless. Pt endorsed medications have helped and he was able to get some sleep and that has helped. Pt endorsed issues with sleep recently and making sx worse. Pt did not endorse any SIB/HI or AH/VH. Pt continues to be agreeable with IP MH admission. Therapeutic Intervention(s) Provided: Engaged in cognitive restructuring/ reframing, looked at common cognitive distortions and challenged negative thoughts., Engaged in guided discovery, explored patient's perspectives and helped expand them through socratic dialogue., Reviewed healthy living that supports positive mental health, including looking at sleep hygiene, regular movement, nutrition, and regular socialization., Identified and practiced coping skills. Current Symptoms: anxious apathy, low self esteem, helplessness, sadness, thoughts of /suicideanxious Mental Status Exam Affect: Blunted Appearance: Appropriate Attention Span/Concentration: Attentive Eye Contact: Engaged Fund of Knowledge: Appropriate Language /Speech Content: Fluent Language /Speech Volume: Soft Language /Speech Rate/Productions: Slow Recent Memory: Variable Remote Memory: Variable Mood: Anxious, Apathetic, Depressed, Sad Orientation to Person: Yes Orientation to Place: Yes Orientation to Time of Day: Yes Orientation to Date: Yes Situation (Do they understand why they are here?): Yes Psychomotor Behavior: Normal Thought Content: Suicidal Thought Form: Intact Treatment Objective(s) Addressed: rapport building, assessing safety, exploring obstacles to safetyin the community, identifying treatment goals, processing feelings, building distress tolerance, identifying and practicing coping strategies Patient Response to Interventions: acceptance expressed, verbalizes understanding Progress Towards Goals: Patient Reports Symptoms Are: ongoing Patient Progress Toward Goals: is making progress Comment: Pt has been receptive to ED interventions Next Step to Work Toward Discharge: symptom stabilization Symptom Stabilization Comment: Pt continues to endorse SI and depressive sx. Case Management: Summary of Interaction: None at time of assessment Plan: inpatient mental health yes provider, Mark Nelson MD reviewed and concurred with [facility] service disposition. yes Clinical Substantiation: At this time IP MH admission is being recommended due to ongoing SI and depressive sx. Pts current sx appear to be impacting his ability to safety and appropriately function in the community. Pt was not able to fully safety plan with administrative underwriter. Pt does appear to be at higher risk of by suicide accidental or intentional due to mental health hx. If Pt is able to effectively safety plan and/or Pts sx improve it would be beneficial to pursue a less restrictive alternative. Legal Status: Legal Status at Admission: Voluntary/Patient has signed consent for treatment Session Status: Time session started: 1440 Time session ended: 1500 Session Duration (minutes): 20 minutes Session Number: 1 Anticipated number of sessions or this episode of care: 4 Time Spent: 20 minutes CPT Code: CPT Codes: 13808 - Psychotherapy (with patient) - 30 (16-37*) min Diagnosis: Patient Active Problem List Diagnosis Code Hypertension I10 Morbid obesity (H) E66.01 FAITH (obstructive sleep apnea) G47.33 Psychosis, unspecified psychosis type (H) F29 Anxiety F41.9 Paranoia (H) F22 Insomnia due to other mental disorder F51.05, F99 Hypokalemia E87.6 Adjustment disorder with anxious mood F43.22 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) F33.2 CAROLE (generalized anxiety disorder) F41.1 Suicidal ideation R45.851 MDD (major depressive disorder), recurrent episode, severe (H) F33.2 Insomnia, unspecified type G47.00 Primary Problem This Admission: Active Hospital Problems CAROLE (generalized anxiety disorder) Suicidal ideation MDD (major depressive disorder), recurrent episode, severe (H) Insomnia, unspecified type Psychosis, unspecified psychosis type (H) ALANA Irvin Licensed Mental Health Professional (LMHP), [facility] [phone] * Darcy Danielle LGSW - 01/31/2024 1:39 PM CDT Triage & Transition Services, Extended Care Client Name: Ant Olson Post Date: January 31, 2024 Service Type: Pt excused from group this morning--Pt sleeping. Site Location: [facility] EMERGENCY DEPT EMP01 KISHOR Hernandez Licensed Mental Health Professional (LMHP), Extended Care [phone] Associated attestation - Mar Bella LICSW - 02/01/2024 11:01 AM CDT Service performed and documented by psychotherapist trainee. Note reviewed and clinical supervision by ANGELINA Hyatt, [facility] February 01, 2024. * Calvin Ryan RN - 01/31/2024 12:51 PM CDT Pt reports feeling better today. He denies SI and verbally contracts for safety. Pt was observed pacing around the unit. He spent some time resting in his recliner. Pt reported some anxiety and requested PRN medications. Pt was able to make his needs known. No acute changes noted. Plan to go inpatient. Pt is agreeable with the plan. * Walter Lainez RN - 01/31/2024 6:07 AM CDT Appeared to have slept most of the night. Was resting in recliner chair, but moved back to a sensory room during the night. * Samantha Haynes, [facility], [facility] - 01/30/2024 10:56 PM CDT IP MH Referral Acuity Rating Score (RARS) LMHP complete at referral to IP MH, with DEC; and, daily while awaiting IP MH placement. Call scoreto PPS. CRITERIA SCORING New 72 HH and Involuntary for IP MH (not adolescent) 0/1 Boarding over 24 hours 0/1 Vulnerable adult at least 55+ with multiple co morbidities; or, Patient age 11 or under 0/1 Suicide ideation without relief of precipitating factors 1/1 Current plan for suicide 0/1 Current plan for homicide 0/1 Imminent risk or actual attempt to seriously harm another without relief of factors precipitating the attempt 0/1 Severe dysfunction in daily living (ex: complete neglect for self care, extreme disruption in vegetative function, extreme deterioration in social interactions) 1/1 Recent (last 2 weeks) or current physical aggression in the ED 0/1 Restraints or seclusion episode in ED 0/1 Verbal aggression, agitation, yelling, etc., while in the ED 0/1 Active psychosis with psychomotor agitation or catatonia 0/1 Need for constant or near constant redirection (from leaving, from others, etc). 0/1 Intrusive or disruptive behaviors 0/1 TOTAL Acuity Total Score: 2 Electronically signed by Samantha Haynes, [facility], [facility] at 01/31/2024 2:16 AM CDT * Angeline Sherwood RN - 01/30/2024 4:11 PM CDT Patient comes in today stating He had the intent to cut his throat today but My stopped me. He states the reason for this was because I'm past the point of exhaustion. I need sleep. He states he has been having a lot of stress lately including work stress and the stress of buying and selling his home. He states he also has sleep apnea and is supposed to use a C-pap but he has never been able to find a c-pap machine that he can tolerate. He c/o decreased PO intake. States he has lost 16lb over the last couple of weeks. He is also having health anxiety. States he has been Getting quickly winded with movement and feels woozy when he gets up. Of note his BP is 120/80 when sitting uvo550/70 with standing. He contracts for safety on the unit. Mood is depressed, anxious. Affect is flat. Patient declines offer of hospital provided c-pap machine. * Angeline Sherwood RN - 01/30/2024 4:05 PM CDT 38 year old male with history of depression received from ED due to SI. Reports intent to cut his throat today. Admits SI. Nursing and risk assessments completed. Assessments reviewed with LMHP and physician. Admission information reviewed with patient. Patient given a tour of [facility] and instructions on using the facility. Questions regarding [facility] addressed. Pt safety search completed. documented in this encounter Consult Notes * Graham Mejia, [facility] - 01/30/2024 12:23 PM CDTAssociated Order(s): [facility]NOSTIC [facility]ALU[facility] (DEC) ASSESSMENT ORDER Diagnostic Evaluation Consultation Crisis Assessment Patient Name: Ant Beckford Age: [age] year old Legal Sex: male Gender Identity: male Pronouns: Race: White Ethnicity: Not or Language: Czech Patient was assessed: Virtual: Russian [place]ers Crisis Assessment Start Time: 1223 Crisis Assessment Stop Time: 1256 Patient location: [facility] EMERGENCY DEPT ED17 Referral Data and Chief Complaint Ant Beckford presents to the ED with family/friends. Patient is presenting to the ED for the following concerns: Significant behavioral change, Anxiety, Depression, Suicidal ideation, Health stressors, Suicide attempt. Factors that make the mental health crisis life threatening or complex are: Ptrecently been to [facility] about 2 weeks ago and was referred to new outpatient psychiatry for medication management and individual therapy service. However, Pt continue to be more depressed, anxious, stressed and suicidal for the past week. Pt made suicide attempt by grabbing a ammonia box tender knife to cut himself early this morning but his intervened as he was brought to the ER for further evaluation.. Informed Consent and Assessment Methods Explained the crisis assessment process, including applicable information disclosures and limits toconfidentiality, assessed understanding of the process, and obtained consent to proceed with the assessment. Assessment methods included conducting a formal interview with patient, review of medical records, collaboration with medical staff, and obtaining relevant collateral information from familyand community providers when available. 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 History of the Crisis Pt is a 38 year old White male with history of depression, anxiety and suicidal ideations. Pt was brought to the ER today by his and sister due to worsening of depression, anxiety and suicidal ideations. Pt remarked, I am suicidal, I grabbed a razor blade, went up to the bathroom upstairs this morning but my intervened as she took the knife out of my hand. as his reason for visiting the ER today. Pt reported he has not been able to sleep, los appetite and not being able to function at all as he felt really tired. 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 Pt shared he handled a large amount of money, transactions at work which made him feel very anxious and stressed. Pt also reported his family was moving as he and his were buying and selling the house which was a big stress for him. Pt endorsed increased depression, worry, panic attacks, and anxiety. Pt reported having poor sleep and loss of appetite. Pt noted he has sleep apnea but his C-PAP machine did not work as he has not been getting a good sleep. Pt denied having acute psychosis and cindi. Pt endored suicidal ideations with intent and plan to cut his throast with a knife. Pt denied having homicidal ideations, access to firearms, history of SIB and pr evious suicide attempt. Brief Psychosocial History Family: , Children yes Support System: , Sibling(s) Employment Status: employed full-time Source of Income: salary/wages Financial Environmental Concerns: none Current Hobbies: social media/computer activities, television/movies/videos, music, exercise/fitness, family functions, outdoor activities, sports/team sports Barriers in Personal Life: behavioral concerns, emotional concerns, mental health concerns Significant Clinical History Current Anxiety Symptoms: panic attack, anxious, racing thoughts, excessive worry Current Depression/Trauma: apathy, helplessness, hopelessness, sadness, thoughts of /suicide, impaired decision making, difficulty concentrating Current Somatic Symptoms: excessive worry, anxious, racing thoughts Current Psychosis/Thought Disturbance: impulsive, high risk behavior Current Eating Symptoms: loss of appetite Chemical Use History: Alcohol: None Benzodiazepines: None Opiates: None Cocaine: None Marijuana: None Other Use: None Past diagnosis: Anxiety Disorder, Depression Family history: Schizophrenia Past treatment: Individual therapy, Psychiatric Medication Management Details of most recent treatment: Pt recently been to [facility] about 2 weeks ago. Pt also being connected with new outpatient psychiatry for medication management and individual therapy service. Other relevant history: Pt shared his parents were still and he has 2 older sisters. Pt reported being with 11 year old daughter. 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 Pt shared he just put a short-term disability request at work. Pt identified having hypertension and sleep apnea as his medical conditions. Pt denied history of legal issues and being abused. Collateral Information Is there collateral information: Yes Collateral information name, relationship, phone number: , Tatyana Post [phone] What happened today: Tatyana reported Pt has been under a lot of stress lately and having mental health issues as he was seen in the [facility] about 2 weeks ago. Tatyana reported Pt has been making suicidal comments and wanting to get over with which never happened to him before. Tatyana reported Pt grabbed a ammonia box tender knife this morning and she was able to intervene as she took the knife away from him which lead him to the ER visit today. What is different about patient's functioning: Tatyana reported Pt has not been able to function, having poor sleep and loss of appetite. Pt also has extremely tired, low energy. Pt has been taking his psychiatric medications consistently but she felt they were not effective. Concern about alcohol/drug use: What do you think the patient needs: Has patient made comments about wanting to kill themselves/others: yes If d/c is recommended, can they take part in safety/aftercare planning: Additional collateral information: [facility] Tatyana reviewed and agreed to secure and lock up all sharps and knives at home as Pt's safety plan. Risk Assessment [place] Suicide Severity Rating Scale Full Clinical Version: Suicidal Ideation Q1 Wish to be (Lifetime): Yes Q2 Non-Specific Active Suicidal Thoughts (Lifetime): Yes 3. Active Suicidal Ideation with any Methods (Not Plan) Without Intent to Act (Lifetime): Yes Q4 Active Suicidal Ideation with Some Intent to Act, Without Specific Plan (Lifetime): Yes Q5 Active Suicidal Ideation with Specific Plan and Intent (Lifetime): Yes Q6 Suicide Behavior (Lifetime): yes Suicidal Behavior (Lifetime) Actual Attempt (Lifetime): Yes Total Number of Actual Attempts (Lifetime): 1 Actual Attempt Description (Lifetime): Pt reported he grabbed a ammonia box tender knife this morning to cut himself as he was going to the bathroom upstairs but his intervened as she took the knife away from him. Has subject engaged in non-suicidal self-injurious behavior? (Lifetime): No Interrupted Attempts (Lifetime): Yes Total Number of Interrupted Attempts (Lifetime): 1 Interrupted Attempt Description (Lifetime): Pt reported he grabbed a ammonia box tender knife this morning to cut himself as he was going to the bathroom upstairs but his intervened as she took the knife away from him. Aborted or Self-Interrupted Attempt (Lifetime): No Preparatory Acts or Behavior (Lifetime): No [place] Suicide Severity Rating Scale Recent: Suicidal Ideation (Recent) Q1 Wished to be (Past Month): yes Q2 Suicidal Thoughts (Past Month): yes Q3 Suicidal Thought Method: yes Q4 Suicidal Intent without Specific Plan: yes Q5 Suicide Intent with Specific Plan: yes Level of Risk per Screen: high risk Intensity of Ideation (Recent) Most Severe Ideation Rating (Past 1 Month): 4 Frequency (Past 1 Month): Daily or almost daily Duration (Past 1 Month): Fleeting, few seconds or minutes Suicidal Behavior (Recent) Actual Attempt (Past 3 Months): Yes Total Number of Actual Attempts (Past 3 Months): 1 Actual Attempt Description (Past 3 Months): Pt reported he grabbed a ammonia box tender knife this morning to cut himself as he was going to the bathroom upstairs but his intervened as she took the knife away from him. Has subject engaged in non-suicidal self-injurious behavior? (Past 3 Months): No Interrupted Attempts (Past 3 Months): Yes Total Number of Interrupted Attempts (Past 3 Months): 1 Interrupted Attempt Description (Past 3 Months): Pt reported he grabbed a ammonia box tender knife this morning to cut himself as he was going to the bathroom upstairs but his intervened as she took theknife away from him. Aborted or Self-Interrupted Attempt (Past 3 Months): No Preparatory Acts or Behavior (Past 3 Months): No Environmental or Psychosocial Events: work or task failure, helplessness/hopelessness, impulsivity/recklessness, other life stressors, recent life events (see comment), challenging interpersonal relationships Protective Factors: Protective Factors: lives in a responsibly safe and stable environment, intact marriage or domestic partnership, able to access care without barriers, supportive ongoing medical and mental health care relationships, help seeking, constructive use of leisure time, enjoyable activi ties, resilience, reality testing ability Does the patient have thoughts of harming others? Feels Like Hurting Others: no Previous Attempt to Hurt Others: no Current presentation: (Pt was calm, alert, oriented, engaged and cooperative.) Is the patient engaging in sexually inappropriate behavior?: no Is the patient engaging in sexually inappropriate behavior? no Mental Status Exam Affect: Constricted Appearance: Appropriate Attention Span/Concentration: Attentive Eye Contact: Engaged Fund of Knowledge: Appropriate Language /Speech Content: Fluent Language /Speech Volume: Normal Language /Speech Rate/Productions: Normal Recent Memory: Variable Remote Memory: Variable Mood: Anxious, Apathetic, Depressed, Sad Orientation to Person: Yes Orientation to Place: Yes Orientation to Time of Day: Yes Orientation to Date: Yes Situation (Do they understand why they are here?): Yes Psychomotor Behavior: Normal, Underactive Thought Content: Clear, Suicidal Thought Form: Intact Mini-Cog Assessment Number of Words Recalled: Clock-Drawing Test: Three Item Recall: Mini-Cog Total Score: Medication Psychotropic medications: Medication Orders - Psychiatric (From admission, onward) None Current Care Team Patient Care Team: Valentin Muñoz MD as PCP - General (Internal Medicine) Valentin Muñoz MD as Assigned PCP Diagnosis Patient Active Problem List Diagnosis Code Hypertension I10 Morbid obesity (H) E66.01 FAITH (obstructive sleep apnea) G47.33 Psychosis, unspecified psychosis type (H) F29 Anxiety F41.9 Paranoia (H) F22 Insomnia due to other mental disorder F51.05, F99 Hypokalemia E87.6 Adjustment disorder with anxious mood F43.22 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) F33.2 CAROLE (generalized anxiety disorder) F41.1 Primary Problem This Admission Active Hospital Problems 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) CAROLE (generalized anxiety disorder) Clinical Summary and Substantiation of Recommendations Pt presenting in the ER today due to worsening of depression, anxiety and suicidal ideations. Pt endorsed suicidal ideations with intent and plan to using a ammonia box tender knife to cut his throat. Pt shared he grabbed a knife this morning as he went to the bathroom upstairs, but his intervened as she took the knife away from him. Pt reported he has not been able to sleep, los appetite and not being able to function at all as he felt really tired. 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 Pt shared he handled a large amount of money, tra nsactions at work which made him feel very anxious and stressed. Pt also reported his family was moving as he and his were buying and selling the house which was a big stress for him. Pt endorsed increased depression, worry, panic attacks, and anxiety. Pt reported having poor sleep and loss ofappetite. Pt noted he has sleep apnea but his C-PAP machine did not work as he has not been gettinga good sleep. Pt denied having acute psychosis and cindi. Pt endored suicidal ideations with intentand plan to cut his throast with a knife. Pt denied having homicidal ideations, access to firearms,history of SIB and previous suicide attempt. Pt reported he has been to [facility] about 2 weeks ago and wanted to go back there again for further stabilization, safety assessment and medication management. Pt noted he will not harm or kill himself while staying at [facility] as he felt safe staying at [facility] to get help. Supervisor [employer] Department recommended Pt to [facility] service. 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 Disposition Recommended disposition: Other. please comment (Pt being recommended to [facility] service.) Reviewed case and recommendations with attending provider. Attending Name: Mark Vidales MD Attending concurs with disposition: yes Patient and/or validated legal guardian concurs with disposition: yes Final disposition: (Pt being referred to [facility] service.) Legal status on admission: Assessment Details Total duration spent with the patient: 33 min CPT code(s) utilized: 88873 - Psychotherapy for Crisis - 60 (30-74*) min ERMELINDA Locke, Psychotherapist [facility] - Triage & Transition Services Callback: [phone] documented in this encounter ED Notes * Kelvin Brooks RN - 02/02/2024 6:49 AM CDT Pt slept through the night uneventfully, mostly in a sensory room. Pt was informed about the reasonfor delay to be transferred to [facility] and showed understanding. * Kelvin Brooks RN - 02/02/2024 12:21 AM CDT This administrative underwriter connected with RN at [facility], [address], and provided potassium lab update. RN told this administrative underwriter that they won't take the pt due to potassium being low (3.0). * Rene Triplett MD - 02/01/2024 11:48 AM CDT [facility] Unit - Psychiatric Consultation [facility] Emergency Department Ant Beckford Age: [age] year old Date of : 1985 History Chief Complaint Patient presents with Suicidal HPI Ant Beckford is a 38 year old male with history notable for major depressive disorder further complicated by severe insomnia and a history of psychosis. He is currently under observation status on the [facility] unit, now approaching 49 hours in the emergency department while awaiting bed availability to transfer to inpatient psychiatry. Overnight, nursing staff note that the patient had difficultysleeping. On reassessment today, the patient confirms feeling very fatigued today and having difficulty sleeping overnight. He tried sleeping in the recliner as well as on a soft mattress pad on the floor in a sensory room. He continues to feel depressed and suicidal today. He is not experiencing any side effects to his medications. He denied psychotic symptoms including auditory and visual hallucinations. He is requesting a medication to help him sleep during the day. Past Medical History Past Medical History: Diagnosis Date Hypertension Obese FAITH (obstructive sleep apnea) 03/24/2022 Past Surgical History: Procedure Laterality Date ORTHOPEDIC SURGERY Left 2001 left foot surgery VASECTOMY Bilateral 12/14/2018 Procedure: Bilateral vasectomy; Surgeon: Mark Miller MD; Location: OR amLODIPine (NORVASC) 10 MG tablet gabapentin (NEURONTIN) 800 MG tablet lisinopril-hydrochlorothiazide (ZESTORETIC) 20-25 MG tablet LORazepam (ATIVAN) 1 MG tablet OLANZapine (ZYPREXA) 10 MG tablet Allergies Allergen Reactions Cephalexin Hives Family History Family History Problem Relation Age of Onset Hypertension Mother Sleep Apnea Mother Diabetes Mother Diabetes Father Hypertension Sister Social History Social History Tobacco Use Smoking status: Never Smokeless tobacco: Never Vaping Use Vaping status: Never Used Substance Use Topics Alcohol use: Yes Drug use: No Review of Systems A medically appropriate review of systems was performed with pertinent positives and negatives noted in the HPI, and all other systems negative. Physical Examination BP: 108/65 Pulse: 100 Temp: 97 ??F (36.1 ??C) Resp: 16 Height: 193 cm (6' 4) Weight: (!) 179.6 kg (396 lb) SpO2: 98 % Sitting Orthostatic BP: 121/88 Sitting Orthostatic Pulse: 110 bpm Standing Orthostatic BP: 100/70 Physical Exam General: Appears stated age. Neuro: Alert and fully oriented. Extremities appear to demonstrate normal strength on visual inspection. Integumentary/Skin: no rash visualized, normal color Psychiatric Examination Appearance: dressed in hospital scrubs and slightly unkempt Attitude: cooperative Eye Contact: fair Mood: depressed Affect: intensity is blunted Speech: decreased prosody Psychomotor Behavior: no evidence of tardive dyskinesia, dystonia, or tics Thought Process: linear Associations: no loose associations Thought Content: no evidence of psychotic thought and active suicidal ideation present Insight: fair Judgement: fair Oriented to: time, person, and place Attention Span and Concentration: fair Recent and Remote Memory: fair Language: able to name/identify objects without impairment Fund of Knowledge: intact with awareness of current and past events ED Course ED Course as of 02/01/24 1130 e Jan 30, 2024 1129 I obtained the history and examined the patient as noted above. 1312 I spoke with Graham from [facility] regarding the patient's presentation and plan of care. Labs Ordered and Resulted from Time of ED Arrival to Time of ED Departure CBC WITH PLATELETS - Abnormal Result Value WBC Count 6.8 RBC Count 6.04 (*) Hemoglobin 17.0 Hematocrit 48.0 MCV 80 MCH 28.1 MCHC 35.4 RDW 13.2 Platelet Count 321 BASIC METABOLIC PANEL - Abnormal Sodium 138 Potassium 3.1 (*) Chloride 99 Carbon Dioxide (CO2) 25 Anion Gap 14 Urea Nitrogen 12.8 Creatinine 0.89 GFR Estimate >90 Calcium 9.7 Glucose 117 (*) TROPONIN T, HIGH SENSITIVITY - Normal Troponin T, High Sensitivity 10 URINE DRUG SCREEN PANEL - Normal Amphetamines Urine Screen Negative Barbituates Urine Screen Negative Benzodiazepine Urine Screen Negative Cannabinoids Urine Screen Negative Cocaine Urine Screen Negative Fentanyl Qual Urine Screen Negative Opiates Urine Screen Negative PCP Urine Screen Negative COVID-19 VIRUS (CORONAVIRUS) BY PCR - Normal SARS CoV2 PCR Negative Assessments & Plan (with Medical Decision Making) Patient presenting with worsening depressive symptoms and suicidal ideation. He has a history of psychosis which appears to have been in remission with unknown etiology. Insomnia has been prominent and an ongoing concern although noted to be worse recently. Various psychosocial stressors have also contributed to his current depressive episode. His treatment plan is focused on initiating antidepressant therapies while pursuing psychiatric hospitalization for stabilization. Nursing notes reviewednoting no acute issues. I have reviewed the assessment completed by the [facility]. Preliminary diagnosis: ICD-10-CM 1. Suicidal ideation R45.851 2. MDD (major depressive disorder), recurrent episode, severe (H) F33.2 r/o with psychotic features 3. Psychosis, unspecified psychosis type (H) F29 symptoms currently remitted 4. Insomnia, unspecified type G47.00 Treatment Plan: -Continue Prozac 20 mg daily for antidepressant treatment. Tolerating well thus far and awaiting therapeutic benefit. -Continue Risperdal 2 mg nightly to maintain remission of psychosis. After a period of maintaining remission, consider dose reduction to find the least effective dose or to determine if continued treatment with an antipsychotic medication is still necessary. -Increase gabapentin to 1200 mg nightly to optimize benefits at lessening insomnia and nighttime anxiety. He has tolerated the 800 mg well with partial response. Optimizing the dose may also help limit usage of Ativan. -One-time dose of Ativan 1 mg today to help address daytime anxiety and allow him to rest more comfortably. -Awaiting bed availability to transfer to inpatient psychiatry for further treatment and stabilization. -- Rene Triplett MD [facility] EMERGENCY DEPT [facility] Unit Rene Triplett MD 02/01/24 1154 * Rene Triplett MD - 01/31/2024 2:32 PM CDT [facility] Unit - Psychiatric Consultation [facility] Emergency Department Ant Beckford Age: [age] year old Date of : 1985 History Chief Complaint Patient presents with Suicidal HPI Ant Beckford is a 38 year old male with history notable for psychosis and prominent insomnia who is currently under observation status on the [facility] unit, receiving treatment for depressive symptoms and suicidal ideation. He is now approaching 28 hours in the emergency department. Overnight, there were no acute issues. On reassessment today, the patient reviews with me perceived side effects hewas having from Zyprexa. He feels much better since discontinuing the medication and is tolerating Risperdal and Prozac without side effects. He slept well last night although feels bored and slightly tired today. He is attempting not to sleep during the day so that he does not interrupt his ability to fall asleep overnight. Gabapentin remains helpful at minimizing his insomnia. His mood remains depressed and characterized as moderate. Suicidal thoughts continue to occur throughout the day. He remains hopeful regarding his treatment plan. There was no indication of psychosis or homicidal thoughts. Past Medical History Past Medical History: Diagnosis Date Hypertension Obese FAITH (obstructive sleep apnea) 03/24/2022 Past Surgical History: Procedure Laterality Date ORTHOPEDIC SURGERY Left 2001 left foot surgery VASECTOMY Bilateral 12/14/2018 Procedure: Bilateral vasectomy; Surgeon: Mark Miller MD; Location: OR amLODIPine (NORVASC) 10 MG tablet gabapentin (NEURONTIN) 800 MG tablet lisinopril-hydrochlorothiazide (ZESTORETIC) 20-25 MG tablet LORazepam (ATIVAN) 1 MG tablet OLANZapine (ZYPREXA) 10 MG tablet Allergies Allergen Reactions Cephalexin Hives Family History Family History Problem Relation Age of Onset Hypertension Mother Sleep Apnea Mother Diabetes Mother Diabetes Father Hypertension Sister Social History Social History Tobacco Use Smoking status: Never Smokeless tobacco: Never Vaping Use Vaping status: Never Used Substance Use Topics Alcohol use: Yes Drug use: No Review of Systems A medically appropriate review of systems was performed with pertinent positives and negatives noted in the HPI, and all other systems negative. Physical Examination BP: 108/65 Pulse: 100 Temp: 97 ??F (36.1 ??C) Resp: 16 Height: 193 cm (6' 4) Weight: (!) 179.6 kg (396 lb) SpO2: 98 % Sitting Orthostatic BP: 121/88 Sitting Orthostatic Pulse: 110 bpm Standing Orthostatic BP: 100/70 Physical Exam General: Appears stated age. Neuro: Alert and fully oriented. Extremities appear to demonstrate normal strength on visual inspection. Integumentary/Skin: no rash visualized, normal color Psychiatric Examination Appearance: awake, alert Attitude: cooperative Eye Contact: fair Mood: anxious and depressed Affect: intensity is blunted Speech: clear, coherent Psychomotor Behavior: no evidence of tardive dyskinesia, dystonia, or tics Thought Process: logical and linear Associations: no loose associations Thought Content: no evidence of psychotic thought and active suicidal ideation present Insight: fair Judgement: fair Oriented to: time, person, and place Attention Span and Concentration: fair Recent and Remote Memory: fair Language: able to name/identify objects without impairment Fund of Knowledge: intact with awareness of current and past events ED Course ED Course as of 01/31/24 1432 e Jan 30, 2024 112 I obtained the history and examined the patient as noted above. 1312 I spoke with Graham from [facility] regarding the patient's presentation and plan of care. Labs Ordered and Resulted from Time of ED Arrival to Time of ED Departure CBC WITH PLATELETS - Abnormal Result Value WBC Count 6.8 RBC Count 6.04 (*) Hemoglobin 17.0 Hematocrit 48.0 MCV 80 MCH 28.1 MCHC 35.4 RDW 13.2 Platelet Count 321 BASIC METABOLIC PANEL - Abnormal Sodium 138 Potassium 3.1 (*) Chloride 99 Carbon Dioxide (CO2) 25 Anion Gap 14 Urea Nitrogen 12.8 Creatinine 0.89 GFR Estimate >90 Calcium 9.7 Glucose 117 (*) TROPONIN T, HIGH SENSITIVITY - Normal Troponin T, High Sensitivity 10 URINE DRUG SCREEN PANEL - Normal Amphetamines Urine Screen Negative Barbituates Urine Screen Negative Benzodiazepine Urine Screen Negative Cannabinoids Urine Screen Negative Cocaine Urine Screen Negative Fentanyl Qual Urine Screen Negative Opiates Urine Screen Negative PCP Urine Screen Negative COVID-19 VIRUS (CORONAVIRUS) BY PCR - Normal SARS CoV2 PCR Negative Assessments & Plan (with Medical Decision Making) Patient presenting with worsening depressive symptoms and suicidal ideation. His treatment plan is focused on initiating antidepressant therapies while pursuing psychiatric hospitalization for stabilization. Nursing notes reviewed noting no acute issues. I have reviewed the assessment completed by the [facility]. Preliminary diagnosis: ICD-10-CM 1. Suicidal ideation R45.851 2. MDD (major depressive disorder), recurrent episode, severe (H) F33.2 r/o with psychotic features 3. Psychosis, unspecified psychosis type (H) F29 symptoms currently remitted 4. Insomnia, unspecified type G47.00 Treatment Plan: -Continue Prozac 20 mg daily for antidepressant treatment. Tolerating well thus far and awaiting therapeutic benefit. -Continue Risperdal 2 mg nightly to maintain remission of psychosis. After a period of maintaining remission, consider dose reduction to find the least effective dose or to determine if continued treatment with an antipsychotic medication is still necessary. -Continue gabapentin 800 mg nightly for insomnia -Continue lorazepam as needed for reduction of anxiety and insomnia. We discussed the importance ofconservative usage to minimize dependency and withdrawal. Alternatively, he may utilize [id number] mg for management of milder anxiety and insomnia. -Awaiting bed availability to transfer to inpatient psychiatry for further treatment and stabilization. -- Rene Tripeltt MD [facility] Rene Triplett MD 01/31/24 1441 * Landon Lombardi CNP - 01/30/2024 9:43 PM CDT [facility] Unit - Initial Psychiatric Observation Note [facility] Emergency Department Observation Initiation Date: Jan 30, 2024 Ant Beckford Age: [age] year old Date of : 1985 History Chief Complaint Patient presents with Suicidal HPI Ant Beckford is a 38 year old male with a past history notable for psychosis, insomnia, hypertension, and obstructive sleep apnea. Patient presented to the emergency department for evaluation of worsening depressive symptoms accompanied by suicidal thoughts and an aborted suicide attempt today. Patient was medically evaluated in the emergency department and determined to be medically stable fortransfer to [facility] for further psychiatric assessment. Patient is nearing 10-1/2 hours in emergencycare. In review of chart, patient is noted to have 2 recent visits to [facility] in November and December. Mostrecently, he was discharged with olanzapine 15 mg nightly to target insomnia and symptoms of psychosis. On interview with patient, he presents as quite anxious and depressed. He reports that the past 2 weeks have not gone well since his discharge from [facility]. He reports that upon returning home, he wasonly sleeping for a couple of hours per night and believes he got maybe 10 hours of sleep in the first week. He notes he is sleeping somewhat better the last few nights, getting about 4 hours per night. He describes decreased ability to function at home and at work. He is feeling foggy and zombie-like. He has been unable to focus at work and has applied for short-term disability. He is also experiencing periods of orthostatic hypotension when going from sitting to standing. He also endorses fe eling internally restless, stating he will go for brisk walks each day for up to an hour. His appetite is very poor and he has lost about 20 pounds in the last 2 weeks due to no interest in food. He is internally preoccupied and expresses a lot of worry about his current mental health symptoms and whether he will ever return to baseline. He often worries about sleeping. He notes that his family is in the midst of selling their house and buying a new house and has been worried about the sale of the 2 homes, in addition to needing to move all of their belongings. He reports that his CPAP machine has not been working properly so he has not been utilizing this at home, and declines to use the hospital provided CPAP here. Patient reports that all of his stressors are accumulating and leading to significant hopelessness. Discusses that he grabbed a razor blade with intent to slit his throat today, but was stopped by his . He continues to describe an ongoing desire to end his life but denies any plan here in the hospital. He denies any symptoms of psychosis at this time, stating that his prior symptoms have resolved. There is no evidence of cindi or homicidal ideation. He is agreeable to inpatient psychiatric hospitalization for further stabilization and safety. Past Medical History Past Medical History: Diagnosis Date Hypertension Obese FAITH (obstructive sleep apnea) 03/24/2022 Past Surgical History: Procedure Laterality Date ORTHOPEDIC SURGERY Left 2001 left foot surgery VASECTOMY Bilateral 12/14/2018 Procedure: Bilateral vasectomy; Surgeon: Mark Miller MD; Location: OR amLODIPine (NORVASC) 10 MG tablet gabapentin (NEURONTIN) 800 MG tablet lisinopril-hydrochlorothiazide (ZESTORETIC) 20-25 MG tablet LORazepam (ATIVAN) 1 MG tablet OLANZapine (ZYPREXA) 10 MG tablet Allergies Allergen Reactions Cephalexin Hives Cephalexin Rash Family History Family History Problem Relation Age of Onset Hypertension Mother Sleep Apnea Mother Diabetes Mother Diabetes Father Hypertension Sister Social History Social History Tobacco Use Smoking status: Never Smokeless tobacco: Never Vaping Use Vaping status: Never Used Substance Use Topics Alcohol use: Yes Drug use: No Review of Systems A medically appropriate review of systems was performed with pertinent positives and negatives noted in the HPI, and all other systems negative. Physical Examination BP: 108/65 Pulse: 100 Temp: 97 ??F (36.1 ??C) Resp: 16 Height: 193 cm (6' 4) Weight: (!) 179.6 kg (396 lb) SpO2: 98 % Sitting Orthostatic BP: 121/88 Sitting Orthostatic Pulse: 110 bpm Standing Orthostatic BP: 100/70 Physical Exam General: Appears stated age. Neuro: Alert and fully oriented. Extremities appear to demonstrate normal strength on visual inspection. Integumentary/Skin: no rash visualized, normal color Psychiatric Examination Appearance: awake, alert, adequately groomed, dressed in hospital scrubs, and appeared as age stated Attitude: cooperative Eye Contact: good Mood: depressed Affect: mood congruent and intensity is blunted Speech: clear, coherent and monotone Psychomotor Behavior: no evidence of tardive dyskinesia, dystonia, or tics Thought Process: linear and goal oriented Associations: no loose associations Thought Content: no evidence of suicidal ideation or homicidal ideation, no evidence of psychotic thought, no auditory hallucinations present, and no visual hallucinations present Insight: fair Judgement: fair Oriented to: time, person, and place Attention Span and Concentration: fair Recent and Remote Memory: fair Language: able to name/identify objects without impairment Fund of Knowledge: intact with awareness of current and past events ED Course ED Course as of 01/30/242142Jan 30, 2024 112 I obtained the history and examined the patient as noted above. 1312 I spoke with Graham from [facility] regarding the patient's presentation and plan of care. Labs Ordered and Resulted from Time of ED Arrival to Time of ED Departure CBC WITH PLATELETS - Abnormal Result Value WBC Count 6.8 RBC Count 6.04 (*) Hemoglobin 17.0 Hematocrit 48.0 MCV 80 MCH 28.1 MCHC 35.4 RDW 13.2 Platelet Count 321 BASIC METABOLIC PANEL - Abnormal Sodium 138 Potassium 3.1 (*) Chloride 99 Carbon Dioxide (CO2) 25 Anion Gap 14 Urea Nitrogen 12.8 Creatinine 0.89 GFR Estimate >90 Calcium 9.7 Glucose 117 (*) TROPONIN T, HIGH SENSITIVITY - Normal Troponin T, High Sensitivity 10 URINE DRUG SCREEN PANEL - Normal Amphetamines Urine Screen Negative Barbituates Urine Screen Negative Benzodiazepine Urine Screen Negative Cannabinoids Urine Screen Negative Cocaine Urine Screen Negative Fentanyl Qual Urine Screen Negative Opiates Urine Screen Negative PCP Urine Screen Negative Assessments & Plan (with Medical Decision Making) Patient presenting with . Nursing notes reviewed noting no acute issues. I have reviewed the assessment completed by the [facility]. During the observation period, the patient did not require medications for agitation, and did not require restraints/seclusion for patient and/or provider safety. The patient was found to have a psychiatric condition that would benefit from an observation stay in the emergency department for further psychiatric stabilization and/or coordination of a safe disposition. The observation plan includes serial assessments of psychiatric condition, potential administration of medications if indicated, further disposition pending the patient's psychiatric course during the monitoring period. Preliminary diagnosis: ICD-10-CM 1. Suicidal ideation R45.851 2. MDD (major depressive disorder), recurrent episode, severe (H) F33.2 r/o with psychotic features 3. Psychosis, unspecified psychosis type (H) F29 symptoms currently remitted 4. Insomnia, unspecified type G47.00 Treatment Plan: - Plan to pursue inpatient psychiatric hospitalization for further stabilization of mood symptoms and suicidal ideation. Patient will be registered to observation status while awaiting an inpatient psychiatric bed. - Initiate fluoxetine 20 mg daily for treatment of depressive symptoms - Will stop olanzapine and start risperidone 2 mg at bedtime for treatment of historical psychosis symptoms as well as mood augmentation. Patient endorses side effects from olanzapine, including restlessness, feeling zombie-like, and orthostatic hypotension. - Continue gabapentin 800 mg at bedtime for insomnia - Will order lorazepam 1 mg at bedtime prn for insomnia if unable to sleep. He is quite anxious andinternally agitated at this time. - Reviewed utox, BMP, CBC. Potassium slightly low at 3.1, and this was supplemented in the ED. EKG from 01/16 reviewed, noting QTc of 450 -- Landon Lombardi CNP [facility] EMERGENCY DEPT EmPATH Unit Landon Lombardi CNP 01/30/24 0447 * Estelita Tubbs RN - 01/30/2024 12:25 PM CDT [facility] Stevenson assessing via video at bedside * Estelita Tubbs RN - 01/30/2024 11:48 AM CDT Video Observation initiated, patient informed. Patient changed into spice scrubs and wanded. Estelita Tubbs RN * Madan Zapata RN - 01/30/2024 11:28 AM CDT [facility] ED to EMPATH Checklist: Goal for EMPATH: Depression management, Suicidality, and Time to stabilize Current Behavior: Sad Safety Concerns: Suicidal, with a plan to Legal Hold Status: Voluntary Medically Cleared by ED provider: Yes Patient Therapeutically Searched: Therapeutic search by ED staff (strings, belts, shoes, pockets, electronics, etc.) Belongings: Remain with patient Independent Ambulation at Baseline: Yes/No: Yes Participates in Care/Conversation: Yes/No: Yes Patient Informed about EMPATH: Yes/No: Yes DEC: Ordered and pending Patient Ready to be Transferred to EMPATH? Yes/No: Yes * Madan Zapata RN - 01/30/2024 11:26 AM CDT Pt is suicidal pt wants to cut his throat with a ammonia box tender Pt contracts for safety Pt has not been sleeping well for the past few days Pt wants to go to empath * Mark Vidales MD - 01/30/2024 11:24 AM CDT Emergency Department Note History of Present Illness Chief Complaint Suicidal HPI Ant Beckford is a 38 year old male with a history of hypertension presenting with suicidal ideation that has increased over the past week. Patient was evaluated in [facility] on 01/17/24 where he was prescribed a high dose of gabapentin. Patient reports feeling like a zombie. He endorses sleeping poorly as well as feeling restless, tired, and physically exhausted. He is short of breath and gets winded easily. Ant reports an increase in life stressors, such as moving and a recent mistake at work. Patient has been eating and drinking less since symptom onset. He denies fever, chills, chest pain, cough, or sore throat. Of note, patient underwent blood work this morning at a [place] [facility]. He is agreeable to Emp[facility]. Independent Historian Patient's present at bedside and corroborates the above. Review of External Notes 01/17/24: ED note reviewed Past Medical History Medical History and Problem List HTN FAITH Medications Norvasc Zestoretic Gabapentin Surgical History L foot surgery Vasectomy Physical Exam Patient Vitals for the past 24 hrs: BP Temp Temp src Pulse Resp SpO2 Height Weight 01/30/24 1128 108/65 97 ??F (36.1 ??C) Oral 100 16 98 % -- -- 01/30/24 1127 -- -- -- -- -- -- 1.93 m (6' 4) (!) 179.6 kg (396 lb) Physical Exam General: No acute distress Head: No obvious trauma to head. Ears, Nose, Throat: External ears normal. Nose normal. No pharyngeal erythema, swelling or exudate.Midline uvula. Moist mucus membranes. Eyes: Conjunctivae clear. Neck: Normal range of motion. Neck supple. CV: Regular rate and rhythm. No murmurs. Respiratory: Effort normal and breath sounds normal. No wheezing or crackles. Gastrointestinal: Soft. No distension. There is no tenderness. There is no rigidity, no rebound andno guarding. Musculoskeletal: Normal range of motion. Non tender extremities to palpations. No lower extremity edema Neuro: Awake, but somnolent. Moving all extremities appropriately. Normal speech. Skin: Skin is warm and dry. No rash noted. Psych: suicidal ideation. Diagnostics Lab Results Labs Ordered and Resulted from Time of ED Arrival to Time of ED Departure CBC WITH PLATELETS - Abnormal Result Value WBC Count 6.8 RBC Count 6.04 (*) Hemoglobin 17.0 Hematocrit 48.0 MCV 80 MCH 28.1 MCHC 35.4 RDW 13.2 Platelet Count 321 BASIC METABOLIC PANEL - Abnormal Sodium 138 Potassium 3.1 (*) Chloride 99 Carbon Dioxide (CO2) 25 Anion Gap 14 Urea Nitrogen 12.8 Creatinine 0.89 GFR Estimate >90 Calcium 9.7 Glucose 117 (*) TROPONIN T, HIGH SENSITIVITY - Normal Troponin T, High Sensitivity 10 URINE DRUG SCREEN PANEL - Normal Amphetamines Urine Screen Negative Barbituates Urine Screen Negative Benzodiazepine Urine Screen Negative Cannabinoids Urine Screen Negative Cocaine Urine Screen Negative Fentanyl Qual Urine Screen Negative Opiates Urine Screen Negative PCP Urine Screen Negative Imaging No orders to display Independent Interpretation None ED Course Medications Administered Medications potassium chloride misa ER (KLOR-CON M20) CR tablet 20 mEq (has no administration in time range) Procedures Procedures Discussion of Management Graham CLOUD Social Determinants of Health adding to complexity of care None ED Course ED Course as of 01/30/24 1419 e Jan 30, 2024 1129 I obtained the history and examined the patient as noted above. 1312 I spoke with Graham from [facility] regarding the patient's presentation and plan of care. Medical Decision Making / Diagnosis [facility] Diagnoses: None MIPS None MDM Ant Beckford is a 38 year old male presenting with suicidal ideation and the desire to go to the empath unit. He is calm and cooperative upon my evaluation, however he does appear somnolent. This could be secondary to the gabapentin that he was recently started on, but to further evaluate for anyother organic causes, basic labs are obtained. Labs are grossly unremarkable, except for a mildly low potassium. He is given oral potassium replacement. Other electrolytes are within normal limits and he is not anemic. UDS is negative. [facility] evaluated the patient and agrees that he would be appropriate for the empath unit. He remains calm and cooperative and is safely transferred to the empath unit. Disposition The patient was transferred to [facility]. ICD-10 Codes: ICD-10-CM 1. Suicidal ideation R45.851 Discharge Medications New Prescriptions No medications on file Scribe Disclosure: Jocelyn Duron, am serving as a scribe at 12:13 PM on 01/30/2024 to document services personally performed by Mark Vidales MD based on my observations and the provider's statements to me. Mark Vidales MD 01/30/24 1610 documented in this encounter Plan of Treatment Upcoming Encounters Date Type Department Care Team (Late st Contact Info) Description 04/01/2024 2:00 PM CDT Appointment [facility] [address] [place] [id number] Omero Pham MD [facility] [address] [place], [place] [phone] 04/01/2024 2:40 PM CDT Office Visit [facility] [place] [address] [place] [phone] Omero Pham [facility] [address] [place], [place] [phone] 04/09/2024 2:00 PM CDT Office Visit [facility] [address] [place] [phone] Valentin Muñoz MD [address] [facility] [place] [phone] Roro Acevedo PA-C [address] [place], [place] [phone] 06/18/2024 12:00 PM CDT Virtual Visit [facility] [place] [address] [place] [phone] Josephine Krishnan PA-C [address] [place] [id number] documented as of this encounter Procedures Procedure Name Priority Date/Time Associated Diagnosis Comments POTASSIUM STAT 02/02/2024 7:26 AM CDT POTASSIUM STAT 02/01/2024 11:41 PM CDT COVID-19 VIRUS (CORONAVIRUS) BY PCR STAT 01/31/2024 7:31 AM CDT URINE DRUG SCREEN STAT 01/30/2024 1:2 5 PM CDT URINE DRUG SCREEN PANEL STAT 01/30/2024 1:25 PM CDT EXTRA TUBE STAT 01/30/2024 1:24 PM CDT EXTRA RED TOP TUBE STAT 01/30/2024 1: 24 PM CDT EXTRA BLUE TOP TUBE STAT 01/30/2024 1 :24 PM CDT TROPONIN T, HIGH SENSITIVITY STAT 01/30/2024 1:19 PM CDT BASIC METABOLIC PANEL STAT 01/30/2024 1:19 PM CDT CBC WITH PLATELETS STAT 01/30/2024 1: 19 PM CDT documented in this encounter Results * Potassium (02/02/2024 7:26 AM CDT) Potassium 3.4 3.4 - 5.3 mmol/L 02/02/2024 7:50 AM CDT LABORATORY Blood STRUCTURE OF RIGHT UPPER LIMB / Unknown Venipuncture / Unknown 02/02/2024 7:26 AM CDT 02/02/2024 7:30 AM CDT Rene Triplett MD LAB - BLOOD ORDERABL ES LABORATORY [facility] [address] 1[address] floor, [address] [place] [address], [facility] [phone] * (ABNORMAL) Potassium (02/01/2024 11:41 PM CDT) Pathologist [facility] Potassium 3.0(L) 3.4 - 5.3 mmol/L 02/02/2024 12:08 AM CDT LABORATORY Blood STRUCTURE OF RIGHT UPPER LIMB / Unknown Venipuncture / Unknown 02/01/2024 11:41 PM CDT 02/01/2024 11:53 PM CDT Joshua Wang MD LAB - BLOOD OR DERABLES LABORATORY [facility] [address] 1[address] floor, [address] [place] [address], [facility] [phone] * Asymptomatic COVID-19 Virus (Coronavirus) by PCR Nose (01/31/2024 7:31 AM CDT) [facility] SARS CoV2 PCR Negative Negative 01/31/2024 8:14 AM CDT LABORATORY Comment:NEGATIVE: SARS-CoV-2 (COVID-19) RNA not detected, presumed negative. Swab NASAL STRUCTURE / Unknown Non-blood Collection / Unknown 01/31/2024 7:31 AM CDT 01/31/2024 7:36 AM CDT Narrative LABORATORY - 01/31/2024 8:14 AM CDT Testing was performed using the Xpert Xpress SARS-CoV-2 Assay on the [employer]. Additional information about this Emergency [...] COVID-19. This test was validated by the [facility]. This laboratory is certified under the Clinical Laboratory Improvement Amendments (CLIA) as qualified to perform high complexity laboratory testing. Rene Triplett MD LAB - MICRO GENERAL ORDERABLES LABORATORY [facility] [address] [facility] 1st floor, [address] [place] [address], [facility] [phone] * Urine Drug Screen Panel (01/30/2024 1:25 PM CDT) [facility] Amphetamines Urine Screen Negative Screen Negative 01/30/2024 [...] Vidales MD LAB - URINE ORDERABL ES [facility] [address], [address] [place] [address], [place] [phone] * Extra Red Top Tube (01/30/2024 1:24 PM CDT) Hold Specimen [facility] 01/30/2024 2:32 PM CDT LABORATORY Blood STRUCTURE OF RIGHT UPPER LIMB / Unknown Venipuncture / Unknown 01/30/2024 1:24 PM CDT 01/30/2024 1:28 PM CDT Mark Vidales MD LAB - BLOOD ORDERABL ES LABORATORY [facility] [address], [address] [place] [address], [place] [phone] * Extra Blue Top Tube (01/30/2024 1:24 PM CDT) Hold Specimen [facility] 01/30/2024 2:32 PM CDT LABORATORY Blood STRUCTURE OF RIGHT UPPER LIMB / Unknown Venipuncture / Unknown 01/30/2024 1:24 PM CDT 01/30/2024 1:28 PM CDT Mark Vidales MD LAB - BLOOD ORDERABL ES LABORATORY [facility] [address], [address] [place] [address], [place] [phone] * Troponin T, High Sensitivity (01/30/2024 1:19 PM CDT) [facility] Troponin T, High Sensitivity 10 <=22 ng/L 01/30/2024 1:56 PM CDT LABORATORY Comment: Either a High [...] SPECIMEN / Unknown Venipuncture / Unknown 01/30/2024 1:19 PM CDT 01/30/2024 1:28 PM CDT Mark Vidales MD LAB - BLOOD ORDERABL ES LABORATORY [facility] [address], [address] [place] [address], [facility] [phone] * (ABNORMAL) Basic metabolic panel (01/30/2024 1:19 PM CDT) [facility] Sodium 138 135 - 145 mmol/L 01/30/2024 1:56 PM CDT LABORATORY Comment:Reference intervals for this test were updated on 05/16/2023 to more accurately reflect our healthy population. There may be differences in the flagging of prior results with similar values performed with this method. Interpretation of those prior results can be made in the context of the updated reference intervals. Potassium 3.1(L) 3.4 - 5.3 mmol/L 01/30/2024 1:56 PM CDT LABORATORY Chloride 99 98 - 107 mmol/L 01/30/2024 1:56 PM CDT LABORATORY Carbon Dioxide (CO2) 25 22 - 29 mmol/L 01/30/2024 1:56 PM CDT LABORATORY Anion Gap 14 7 - 15 mmol/L 01/30/2024 1:56 PM CDT LABORATORY Urea Nitrogen 12.8 6.0 - 20.0 mg/dL 01/30/2024 1:56 PM CDT LABORATORY Creatinine 0.89 0.67 - 1.17 mg/dL 01/30/2024 1:56 PM CDT LABORATORY GFR Estimate >90 >60 mL/min/1. 73m2 01/30/2024 1:56 PM CDT LABORATORY Calcium 9.7 8.6 - 10.0 mg/dL 01/30/2024 1:56 PM CDT LABORATORY Glucose 117(H) 70 - 99 mg/dL 01/30/2024 1:56 PM CDT LABORATORY Blood BLOOD SPECIMEN / Unknown Venipuncture / Unknown 01/30/2024 1:19 PM CDT 01/30/2024 1:28 PM CDT Mark Vidales MD LAB - BLOOD ORDERABL ES LABORATORY [facility] [address], [address] [place] [address], [facility] [phone] * (ABNORMAL) CBC with platelets (01/30/2024 1:19 PM CDT) WBC Count 6.8 4.0 - 11.0 10e3/uL 01/30/2024 1:31 PM CDT LABORATORY RBC Count 6.04(H) 4.40 - 5.90 10e6/uL 01/30/2024 1:31 PM CDT LABORATORY Hemoglobin 17.0 13.3 - 17.7 g/dL 01/30/2024 1:31 PM CDT LABORATORY Hematocrit 48.0 40.0 - 53.0 % 01/30/2024 1:31 PM CDT LABORATORY MCV 80 78 - 100 fL 01/30/2024 1:31 PM CDT LABORATORY MCH 28.1 26.5 - 33.0 pg 01/30/2024 1:31 PM CDT LABORATORY MCHC 35.4 31.5 - 36.5 g/dL 01/30/2024 1:31 PM CDT LABORATORY RDW 13.2 10.0 - 15.0 % 01/30/2024 1:31 PM CDT LABORATORY Platelet Count 321 150 - 450 10e3/uL 01/30/2024 1:31 PM CDT LABORATORY Blood BLOOD SPECIMEN / Unknown Venipuncture / Unknown 01/30/2024 1:19 PM CDT 01/30/2024 1:28 PM CDT Mark Vidales MD LAB - BLOOD ORDERABL ES LABORATORY [facility] [address], [address] [place] [address], [facility] [phone] documented in this encounter Visit Diagnoses Diagnosis Insomnia, unspecified type- Primary Suicidal ideation MDD (major depressive disorder), recurrent episode, severe (H) Major depressive disorder, recurrent episode, severe, without mention of psychotic behavior Psychosis, unspecified psychosis type (H) Insomnia, unspecified type CAROLE (generalized anxiety disorder) Generalized anxiety disorder Suicidal ideation MDD (major depressive disorder), recurrent episode, severe (H) Major depressive disorder, recurrent episode, severe, without mention of psychotic behavior Psychosis, unspecified psychosis type (H) documented in this encounter Administered Medications Inactive Administered Medications - up to 3 most recent administrations Medication Order MAR Action Action Date Dose Rate Site acetaminophen (TYLENOL) tablet 650 mg 650 mg, Oral, EVERY 6 HOURS PRN, mild pain, fever, Starting on Mon01/30/24 at 2139, Maximum acetaminophen dose from all sources = 75 mg/kg/day not to exceed 4 grams/day. amLODIPine (NORVASC) tablet 10 mg 10 mg, Oral, DAILY, First dose on Mon01/31/24 at 0800 $Given 02/02/2024 7:47 AM CDT 10 mg $Given 02/01/2024 8:43 AM CDT 10 mg $Given 01/31/2024 7:49 AM CDT 10 mg FLUoxetine (PROzac) capsule 20 mg 20 mg, Oral, DAILY, First dose on Mon01/31/24 at 0800 $Given 02/02/2024 7:47 AM CDT 20 mg $Given 02/01/2024 8:43 AM CDT 20 mg $Given 01/31/2024 7:49 AM CDT 20 mg gabapentin (NEURONTIN) tablet 800 mg 800 mg, Oral, AT BEDTIME, First dose on Mon01/30/24 at 2200 $Given 02/01/2024 10:57 PM CDT 800 mg $Given 01/31/2024 9:30 PM CDT 800 mg $Given 01/30/2024 10:10 PM CDT 800 mg hydrOXYzine HCl (ATARAX) tablet 50 mg 50 mg, Oral, EVERY 6 HOURS PRN, anxiety, Starting on Mon01/30/24 at 1708 $Given 02/01/2024 8:42 AM CDT 50 mg $Given 01/31/2024 7:49 AM CDT 50 mg $Given 01/30/2024 5:23 PM CDT 50 mg lisinopril-hydrochlorothiazide (ZESTORETIC) 20-25 MG per tablet 2 tablet 2 tablet, Oral, DAILY, First dose on Mon01/31/24 at 0800 $Given 02/02/2024 7:47 AM CDT 2 tablets $Given 02/01/2024 8:39 AM CDT 2 tablets $Given 01/31/2024 7:49 AM CDT 2 tablets LORazepam (ATIVAN) tablet 0.5 mg 0.5 mg, Oral, ONCE, On Mon01/30/24 at 1755, For 1 dose $Given 01/30/2024 6:09 PM CDT 0.5 mg LORazepam (ATIVAN) tablet 1 mg 1 mg, Oral, 2 TIMES DAILY PRN, anxiety, Insomnia, Starting on Mon01/31/24 at 1230, May utilize if not asleep 1 hour after taking scheduled bedtime meds $Given 01/31/2024 12:38 PM CDT 1 mg LORazepam (ATIVAN) tablet 1 mg 1 mg, Oral, ONCE, On Mon02/01/24 at 1140, For 1 dose $Given 02/01/2024 12:27 PM CDT 1 mg potassium chloride (KLOR-CON) Packet 40 mEq 40 mEq, Oral, ONCE, On Mon02/02/24 at 0130, For 1 dose, Dissolve packet contents in 4-8 ounces of cold water or juice. $Given 02/02/2024 1:32 AM CDT 40 mEq potassium chloride misa ER (KLOR-CON M20) CR tablet 20 mEq 20 mEq, Oral, ONCE, On Mon01/30/24 at 1405, For 1 dose, DO NOT CRUSH $Given 01/30/2024 2:43 PM CDT 20 mEq risperiDONE (risperDAL) tablet 2 mg 2 mg, Oral, AT BEDTIME, First dose on Mon01/30/24 at 2200 $Given 02/01/2024 9:25 PM CDT 2 mg $Given 01/31/2024 9:34 PM CDT 2 mg $Given 01/30/2024 10:10 PM CDT 2 mg documented in this encounter Active and Recently Administered Medications Times are shown in CDT. Scheduled Medication Order 01/31/2024 02/01/2024 02/02/2024 amLODIPine (NORVASC) tablet 10 mg 10 mg, Oral, DAILY, First dose on Mon01/31/24 at 0800 0749 ($Given - Provider: Calvin Ryan RN) 0843 ($Given - Provider: Nayla Vickers RN) 0747 ($Given - Provider: Angeline Sherwood RN) FLUoxetine (PROzac) capsule 20 mg 20 mg, Oral, DAILY, First dose on Mon01/31/24 at 0800 0749 ($Given - Provider: Calvin Ryan RN) 0843 ($Given - Provider: Nayla Vickers RN) 0747 ($Given - Provider: Angeline Sherwood RN) gabapentin (NEURONTIN) tablet 800 mg 800 mg, Oral, AT BEDTIME, First dose on Mon01/30/24 at 2200 2130 ($Given - Provider: Nayla Vickers RN) 2257 ($Given - Provider: Nayla Vickers RN) lisinopril-hydrochloro thiazide (ZESTORETIC) 20-25 MG per tablet 2 tablet 2 tablet, Oral, DAILY, First dose on Mon01/31/24 at 0800 0749 ($Given - Provider: Calvin Ryan RN) 0839 ($Given - Provider: Nayla Vickers RN) 0747 ($Given - Provider: Angeline Sherwood RN) LORazepam (ATIVAN) tablet 1 mg (COMPLETED) 1 mg, Oral, ONCE, On Mon02/01/24 at 1140, For 1 dose 1227 ($Given - Provider: Nayla Vickers RN) potassium chloride (KLOR-CON) Packet 40 mEq (COMPLETED) 40 mEq, Oral, ONCE, On Mon02/02/24 at 0130, For 1 dose, Dissolve packet contents in 4-8 ounces of cold water or juice. 0132 ($Given - Provider: Kelvin Brooks RN) risperiDONE (risperDAL) tablet 2 mg 2 mg, Oral, AT BEDTIME, First dose on Mon01/30/24 at 2200 2134 ($Given - Provider: Nayla Vickers RN) 2125 ($Given - Provider: Nayla Vickers RN) PRN Medication Order 01/31/2024 02/01/2024 02/02/2024 acetaminophen (TYLENOL) tablet 650 mg 650 mg, Oral, EVERY 6 HOURS PRN, mild pain, fever, Starting on Mon01/30/24 at 2139, Maximum acetaminophen dose from all sources = 75 mg/kg/day not to exceed 4 grams/day. hydrOXYzine HCl (ATARAX) tablet 50 mg 50 mg, Oral, EVERY 6 HOURS PRN, anxiety, Starting on Mon01/30/24 at 1708 0749 ($Given - Provider: Calvin Ryan RN) 0842 ($Given - Provider: Nayla Vickers RN) LORazepam (ATIVAN) tablet 1 mg 1 mg, Oral, 2 TIMES DAILY PRN, anxiety, Insomnia, Starting on Mon01/31/24 at 1230, May utilize if not asleep 1 hour after taking scheduled bedtime meds 1238 ($Given - Provider: Calvin Ryan RN) documented in this encounter Additional Health Concerns Assessment Noted Time PHQ-9 Depression Total Score: 24 024 11:07 AM CDT documented as of this encounter Care Teams Machine Precision Etcher Relationship Specialty Start Date End Date Valentin Muñoz MD [address] [place] [address] PCP - General Internal Medicine 10/08/10 Valentin Muñoz MD [facility] [facility] [facility] [place] [address] Assigned PCP 10/03/16 documented as of this encounter
--- OUTSIDE RECORDS SUMMARY | 2024-03-09 10:50 | XMS_ITS | Encounter Summary ---
Author Organization [place] Address [address] [place] [address] Care Team Providers Care Heel Turner Name Role Phone Valentin Muñoz MD Primary Care Provider [phone] Valentin Muñoz MD Unavailable [phone] Encounter Details Date Type Department Care Team (Latest Contact Info) Description 02/19/2024 Travel Social History Tobacco Use Types Packs/Day [...] How often do you attend chur or cheondoism services? More than 4 times per year 04/04/2023 Do you belong to any clubs o r organizations such as jainism groups, unions, fraternal or athletic groups, or [...] Answer Date Recorded PHQ-2 Score 2 02/19/2024 [facility] Occupat ional Health - Occupational [...] place to sleep or slept in a prison (including now)? No 04/04/2023 Adolescent Education Answer [...] Info) Description 04/01/2024 2:00 PM CDT [facility] [address] [place] [address] Omero Pham MD [facility] [address] [place] [address] 04/01/2024 2:40 PM CDT Office Visit [facility] [place] [address] [place] [phone] Omero Pham MD [facility] [address] [place] [address] 04/09/2024 2:00 PM CDT Office Visit [facility] [address] [place] [phone] Valentin Muñoz MD [address] [facility] [place] [phone] Roro Acevedo PA-C [address] [place], [place] [address] 06/18/2024 12:00 PM CDT Virtual Visit [facility] [place] [address] [place] [phone] Josephine Krishnan PA-C [address] [place], [place] [address] documented as of this encounter Visit Diagnoses Not on filedocumented in this encounter Additional Health Concerns Assessment Noted Time PHQ-9 Depression Total Score: 24 024 11:07 AM CDT documented as of this encounter Care Teams Heel Turner Relationship Specialty Start Date End Date Valentin Muñoz MD [address] [facility] [place] [address] PCP - General Internal Medicine 10/08/10 Valentin Muñoz MD [address] [facility] [place] [address] Assigned PCP 10/03/16 documented as of this encounter
--- OUTSIDE RECORDS SUMMARY | 2024-03-09 10:50 | XMS_ITS | Encounter Summary ---
Author Organization [place] Address [address] [place] [address] Care Team Providers Care Elevator Supervisor Name Role Phone Valentin Muñoz MD Primary Care Provider [phone] Valentin Muñoz MD Unavailable [phone] Reason for Visit * Reason Onset Date Comments MH/CD Inpatient 02/02/2024 Encounter Details Date Type Department Care Team ([facility] st Contact Info) Description 02/02/2024 Telephone [facility] Intake [address] [place] [phone] Generic, Behavioral Intake, MD MH/CD Inpatient Social [...] often do you attend chur ch or jain services? More than 4 times per year 04/04/2023 Do you belong to any clubs o r organizations such as yazdanism groups, unions, fraternal or athletic groups, or [...] Answer Date Recorded PHQ-2 Score 4 01/24/2024 [facility] - Occupational Stress Questionnaire Answer Date [...] encounter Miscellaneous Notes * Telephone Encounter - Rosario Snow - 02/02/2024 3:18 AM CDT 3:18 AM Intake called Freda to inquire about pt transport status to [facility]. Per [facility] YOLIS Pederson, Akilah SY would like pt's potassium level up to at least 3.3 before admit. Per YOLIS Pederson, they gavehim fluids, he is sleeping now, and they'll do a draw in the am early. [facility] YOLIS Romano who answered call said they would hold the bed. documented in this encounter Plan of Treatment Upcoming Encounters Date Type Department Care Team (Late st Contact Info) Description 04/01/2024 2:00 PM CDT Appointment [facility] [address] [place] [phone] Omero Pham MD [facility] [address] [place], [place] [address] 04/01/2024 2:40 PM CDT Office Visit [facility] [place] [address] [place] [phone] Omero Pham MD [facility] [address] [place], [place] [address] 04/09/2024 2:00 PM CDT Office Visit [facility] [address] [place] [address] Valentin Muñoz MD [address] [facility] [place] [phone] Roro Acevedo PA-C [address] [place], [place] [address] 06/18/2024 12:00 PM CDT Virtual Visit [facility] [address] [place] [phone] Josephine Krishnan PA-C [address] [facility] [address] [place] [address] documented as of this encounter Visit Diagnoses Not on filedocumented in this encounter Additional Health Concerns Assessment Noted Time PHQ-9 Depression Total Score: 24 024 11:07 AM CDT documented as of this encounter Care Teams Elevator Supervisor Relationship Specialty Start Date End Date Valentin Muñoz MD [address] [place] [address] [place] [address] PCP - General Internal Medicine 10/08/10 Valentin Muñoz MD [address] [place] [address] [place] [address] Assigned PCP 10/03/16 documented as of this encounter
--- OUTSIDE RECORDS SUMMARY | 2024-03-09 10:50 | XMS_ITS | Encounter Summary ---
Author Organization [place] Address [address] [place] [address] Care Team Providers Care Regional Service Manager Name Role Phone Valentin Muñoz MD Primary Care Provider Valentin Muñoz MD Unavailable [phone] Reason for Visit * Reason Onset Date Comments MH/CD Inpatient 02/02/2024 Encounter Details Date Type Department Care Team ([facility] st Contact Info) Description 02/02/2024 Telephone [facility] Behavioral Health Intake [address] [place] [phone] Generic, Behavioral Intake, MH/CD Inpatient (/) Social History Tobacco Use Types Packs/Day Years [...] often do you attend chur ch or confucianism services? More than 4 times per year 04/04/2023 Do you belong to any clubs o r organizations such as zoroastrian groups, unions, fraternal or athletic groups, or [...] Answer Date Recorded PHQ-2 Score 4 01/24/2024 [facility] of Occupat ional [facility] - Occupational Stress Questionnaire [...] encounter Miscellaneous Notes * Telephone Encounter - Nargis Hyatt - 02/02/2024 4:17 AM CDT 04:12 - Received call from [facility] [address] CRN Reena reporting they can hold the bed for pt but will need rechecked potassium level completed no later than 8AM. Informed Reena that pt did receive oral 40 mEq around 1:30AM. Reena to speak to Freda RN 04:15 - Attempted to transfer call to [facility] RN Bg, however was unavailable and requested Akilah RN call back in a few minutes. PPS provided [facility] RN number to Reena and she will call [facility] directly documented in this encounter Plan of Treatment Upcoming Encounters Date Type Department Care Team (Late st Contact Info) Description 04/01/2024 2:00 PM CDT Appointment [facility] [address] [place] [address] Omero Pham MD [facility] [address] [place], [place] [address] 04/01/2024 2:40 PM CDT Office Visit [facility] [place] [address] [place] [phone] Omero Pham MD [facility] [address] [place], [place] [address] 04/09/2024 2:00 PM CDT Office Visit [facility] [address] [place] [address] Valentin Muñoz MD [address] [facility] [place] [address] Roro Acevedo, PA-C [address] [place], [place] [address] 06/18/2024 12:00 PM CDT Virtual Visit [facility] [address] [place] [phone] Josephine Krishnan PA-C [address] [place] [address] documented as of this encounter Visit Diagnoses Not on filedocumented in this encounter Additional Health Concerns Assessment Noted Time PHQ-9 Depression Total Score: 24 01/23/ 024 11:07 AM CDT documented as of this encounter Care Teams Regional Service Manager Relationship Specialty Start Date End Date Valentin Muñoz MD [address] [place] [address] [place] [address] PCP - General Internal Medicine 10/08/10 Valentin Muñoz MD [address] [place] [address] [place] [address] Assigned PCP 10/03/16 documented as of this encounter
--- OUTSIDE RECORDS SUMMARY | 2024-03-09 10:50 | XMS_ITS | Encounter Summary ---
Author Organization [place] Address [address] [place] [address] Care Team Providers Care Cdl Company Flatbed Driver Name Role Phone Valentin Muñoz MD Primary Care Provider [phone] Valentin Muñoz MD Unavailable [phone] Encounter Details Date Type Department Care Team (Late st Contact Info) Description 02/05/2024 Telephone [facility] [address] [place] [phone] Valentin Muñ[place] [address] [place] [address] [place] [phone] Social History Tobacco Use Types Packs/Day Years [...] often do you attend chur ch or christianity services? More than 4 times per year 04/04/2023 Do you belong to any clubs o r organizations such as muslim groups, unions, fraternal or athletic groups, or [...] Answer Date Recorded PHQ-2 Score 4 01/24/2024 [facility] of Occupat ional Health - Occupational [...] place to sleep or slept in a detention (including now)? No 04/04/2023 Adolescent Education Answer Date Record ed Getting School Help Needed Not on file 06/02 Sex and Gender Information Value Date Recorded Sex Assigned at Not on file Gender Identity Not on file Sexual Orientation Not on file documented as of this encounter Miscellaneous Notes * Telephone Encounter - Valentin Muñoz MD - 02/05/2024 1:20 PM CDT Called, discussed. * Telephone Encounter - Ion Polanco - 02/05/2024 9:42 AM CDT FYI - Status Update Who is Calling: family member, Update: Patient is in the hospital since 01/30/24. Got transfer to another unit. would like a call back. Does caller want a call/response back: Yes Could we send this information to you in [employer] or would you prefer to receive a phone call?: Patient would prefer a phone call Okay to leave a detailed message?: Yes at Other phone number: [phone] documented in this encounter Plan of Treatment Upcoming Encounters Date Type Department Care Team (Late st Contact Info) Description 04/01/2024 2:00 PM CDT Appointment [facility] [address] [place] [address] Omero Pham MD [facility] [address] [facility] [address] [place], [place] [address] 04/01/2024 2:40 PM CDT Office Visit [facility] [place] [address] [place] [phone] Omero Pham MD [facility] [address] [place] [address] 04/09/2024 2:00 PM CDT Office Visit [facility] [address] [place] [address] Valentin Muñoz MD [facility] [place] [address] Roro Acevedo PAShannaC [address] [place] [address] 06/18/2024 12:00 PM CDT Virtual Visit [facility] [address] [phone] Josephine Krishnan PA-C [address] [facility] [address] [facility] [address] [place], [place] [address] documented as of this encounter Visit Diagnoses Not on filedocumented in this encounter Additional Health Concerns Assessment Noted Time PHQ-9 Depression Total Score: 24 024 11:07 AM CDT documented as of this encounter Care Teams Cdl Company Flatbed Driver Relationship Specialty Start Date End Date Valentin Muñoz MD [address] [place] [address] [place] [address] PCP - General Internal Medicine 10/08/10 Valentin Muñoz MD [address] [place] [address] [place] [address] Assigned PCP 10/03/16 documented as of this encounter
--- OUTSIDE RECORDS SUMMARY | 2024-03-09 10:50 | XMS_ITS | Encounter Summary ---
Author Organization [place] Address [address] [place] [address] Care Team Providers Care Rig Welder Name Role Phone Valentin Muñoz MD Primary Care Provider Valentin Muñoz MD Unavailable [phone] Reason for Visit * Reason Onset Date Comments Forms 02/05/2024 [facility] Encounter Details Date Type Department Care Team (Late st Contact Info) Description 02/05/2024 Telephone [facility]elle [address] [place] [address] [address] [place] [phone] Valentin Muñoz MD [address] [place] [address] [place] [phone] Forms ([facility]) Social History Tobacco Use Types Packs/Day Years [...] any clubs o r organizations such as worship groups, unions, fraternal or athletic groups, or [...] Answer Date Recorded PHQ-2 Score 4 01/24/2024 [facility] of Occupat ional Health - Occupational Stress [...] place to sleep or slept in a chcf (including now)? No 04/04/2023 Adolescent Education Answer Date Record ed Getting School Help Needed Not on file 06/02 Sex and Gender Information Value Date Recorded Sex Assigned at Not on file Gender Identity Not on file Sexual Orientation Not on file documented as of this encounter Miscellaneous Notes * Telephone Encounter - Daysi Sotelo - 02/08/2024 2:04 PM CDT Form filled completed and faxed Daysi Sotelo on 02/08/2024 at 2:04 PM * Telephone Encounter - Beth Douglas - 02/05/2024 3:54 PM CDT Forms/Letter Request Type of form/letter: Disability Do we have the form/letter: Yes: Put in Dr Muñoz's file in side room by front office medical assistant Who is the form from? [facility] Where did/will the form come from? form was faxed in When is form/letter needed by: joesph How would you like the form/letter returned: Mail Patient Notified form requests are processed in 5-7 business days:No Could we send this information to you in [facility] or would you prefer to receive a phone call?: Patient would prefer a phone call Okay to leave a detailed message?: Yes at Home number on file [phone] (home) documented in this encounter Plan of Treatment Upcoming Encounters Date Type Department Care Team (Late st Contact Info) Description 04/01/2024 2:00 PM CDT Appointment [facility] [address] [place] [address] Omero Pham MD [facility] [address] [place] [address] 04/01/2024 2:40 PM CDT Office Visit [facility] [place] [address] [place] [phone] [facility] [address] [place] [address] 04/09/2024 2:00 PM CDT Office Visit [facility] [address] [place] [phone] Valentin Muñoz MD [address] [place] [address] [place] [phone] Roro Acevedo PA-C [address] [place], [place] [phone] 06/18/2024 12:00 PM CDT Virtual Visit [facility] [place] [address] [place] [phone] Josephine Krishnan PA-C [address] [place] [address] documented as of this encounter Visit Diagnoses Not on filedocumented in this encounter Additional Health Concerns Assessment Noted Time PHQ-9 Depression Total Score: 24 024 11:07 AM CDT documented as of this encounter Care Teams Rig Welder Relationship Specialty Start Date End Date Valentin Muñoz MD [address] [place] [address] [place] [address] PCP - General Internal Medicine 10/08/10 Valentin Muñoz MD [address] [place] [address] [place] [address] Assigned PCP 10/03/16 documented as of this encounter
--- OUTSIDE RECORDS SUMMARY | 2024-03-09 10:51 | XMS_ITS | Encounter Summary ---
Author Organization [facility] Address [address] [place] [address] Care Team Providers Care Staffing Operations Manager Name Role Phone Valentin Muñoz MD Primary Care Provider Valentin Muñoz MD Unavailable [phone] Reason for Visit * Reason Onset Date Comments MH/CD Inpatient 01/31/2024 Encounter Details Date Type Department Care Team ([facility] st Contact Info) Description 01/31/2024 Telephone [facility] Behavior[facility] Health Intake [address] [place] [phone] Generic, Behavioral Intake, MD MH/CD Inpatient Social [...] often do you attend chur ch or adventism services? More than 4 times per year 04/04/2023 Do you belong to any clubs o r organizations such as nondenominational groups, unions, fraternal or athletic groups, or [...] Answer Date Recorded PHQ-2 Score 4 01/24/2024 [facility] - Occupational Stress Questionnaire Answer Date Recorded [...] encounter Miscellaneous Notes * Telephone Encounter - Camila Jang - 01/31/2024 11:32 AM CDT R: [place] Call Log 01/31/2024 9:03 AM Intake has called facilities that have not updated the bed status within the last 12 hours. [facility] is at capacity [facility] is posting 16 beds. [phone] There are no beds available [facility] is posting 0 beds. Negative covid required [facility] is posting 0 beds. Neg covid. No high school/Kiesha-psych. [phone] Per call at 9:25am to Nena SY unavailable Intake to follow up. [facility] is posting 0 beds. [phone] [facility] is posting 7 beds. [phone] Per call with Baldemar @11:21 AM They are already reviewing foropen beds and will call if more available [facility] is posting 2 Young Adult bed. Ages 18-28. Negative covid. [phone] Pt is not age appropriate [facility] is posting 0 beds. [phone] [facility] is posting 0 beds [phone] Pt remains on the worklist pending appropriate bed availability. 12:59 PM Paged unit 22 2:20 PM Radha accepted for unit 20 Updated worklist and added to the admit board. Did Transfer Center and Bed Planning and Indicia 2:31 PM Updated unit 22 2:34 PM Updated [facility] Empath 5:17 PM Discussed Pt with unit 22 college scouting coordinator; Pt is over 300 lbs and needs a medical bed and a floormounted toilet and none are currently available on the unit. CRN will reach out to ANS to get confirmation of issue and PPS will update. 5:30 PM Discussed Pt with LEROY Barrett and she agreed that in Pt's best interest a regular bed isn't appropriate. Intake will remove Pt from unit 22 Que and updated [facility] ED 5:37 PM Updated [facility] * Telephone Encounter - Tonja Sams - 01/31/2024 2:08 AM CDT S: PEDRO LUIS [facility]ba [employer] Hand Samantha calling at 2:09 AM about a 38 year old/Male presenting after a suicideattempt. B: Pt arrived via Family. Presenting problem, stressors: Pt presents after a suicide attempt via slitting his throat but intervened this attempt. Stressors: Decompensating mh, work. Pt affect in ED: Anxious and Depressed Pt Dx: Major Depressive Disorder and Unspecified Psychosis Previous IPMH hx? Unsure Pt endorses SI, no plan Hx of suicide attempt? No Pt denies SIB Pt denies HI Pt denies hallucinations . Pt RARS Score: 2 Hx of aggression/violence, sexual offenses, legal concerns, Epic care plan? describe: No Current concerns for aggression this visit? No Does pt have a history of Civil Commitment? No Is Pt their own guardian? Yes Pt is prescribed medication. Is patient medication compliant? Yes Pt endorses OP services: Psychiatrist and therapist CD concerns: None Acute or chronic medical concerns: No Does Pt present with specific needs, assistive devices, or exclusionary criteria? CPAP, will need private room , Doesn't use it Pt is ambulatory Pt is able to perform ADLs independently A: Pt to be reviewed for [facility] admission. Pt is Voluntary Preferred placement: [facility] COVID Symptoms: No If yes, COVID test required Utox: Negative CMP: Abnormalities: Potassium: 3.1 CBC: WNL HCG: N/A R: Patient cleared and ready for behavioral bed placement: Yes Pt placed on IP worklist? Yes Does Patient need a Transfer Center request created? Yes, conventional mortgage underwriter completed Transfer Center request at: 2:15 AM documented in this encounter Plan of Treatment Upcoming Encounters Date Type Department Care Team (Late st Contact Info) Description 04/01/2024 2:00 PM CDT Appointment [place] [id number] [place] [address] Omero Pham MD [facility] [address] [place], [place] [address] 04/01/2024 2:40 PM CDT Office Visit [facility] [place] [address] [place] [phone] Omero Pham MD [facility] [address] [place], [place] [address] 04/09/2024 2:00 PM CDT Office Visit [facility] [address] [place] [phone] Valentin Muñoz MD [address] [place] [address] [place] [phone] Roro Acevedo PA-C [address] [place], [place] [address] 06/18/2024 12:00 PM CDT Virtual Visit [facility] [place] [address] [place] [phone] Josephine Krishnan PA-C [address] [place] [id number] documented as of this encounter Visit Diagnoses Not on filedocumented in this encounter Additional Health Concerns Assessment Noted Time PHQ-9 Depression Total Score: 24 024 11:07 AM CDT documented as of this encounter Care Teams Staffing Operations Manager Relationship Specialty Start Date End Date Valentin Muñoz MD [address] [place] [address] [place] [phone] PCP - General Internal Medicine 10/08/10 Valentin Muñoz MD [address] [facility] [place] [address] Assigned PCP 10/03/16 documented as of this encounter
--- OUTSIDE RECORDS SUMMARY | 2024-03-09 10:51 | XMS_ITS | Encounter Summary ---
Author Organization [facility] Address [address] [place] [address]. [place] [address] Care Team Providers Care Vacuum Cleaner Repair Person Name Role Phone Valentin Muñoz MD Primary Care Provider [phone] Valentin Muñoz MD Unavailable [phone] Encounter Details Date Type Department Care Team (Late st Contact Info) Description 01/12/2024 Orders Only [facility] [address] [place] [phone] Sarah Robles, LUIS RN FIELD CASE MANAGER [facility] [address] [facility] [place], [place] [phone] Social History Tobacco Use Types Packs/Day Years [...] Answer Date Recorded PHQ-2 Score 4 01/24/2024 [facility] - [...] place to sleep or slept in a [facility] (including now)? No 04/04/2023 Adolescent Education Answer [...] Info) Description 04/01/2024 2:00 PM CDT Appointment [facility] [address] [place] [address] Omero Pham MD [facility] [address] [facility] [address] [place] [address] 04/01/2024 2:40 PM CDT Office Visit [facility] [place] [address] [place] [phone] Omero Pham MD [facility] [address] [address] [place], [place] [address] 04/09/2024 2:00 PM CDT Office Visit [facility] [address] [facility] [address] [place] [phone] Valentin Muñoz MD [address] [facility] [place] [address] Roro Acevedo PAMickie [address] [place], [place] [address] 06/18/2024 12:00 PM CDT Virtual Visit [facility] [place] [address] [place] [phone] Josephine Krishnan PA-C [address] [place] [address] documented as of this encounter Visit Diagnoses Not on filedocumented in this encounter Care Teams Vacuum Cleaner Repair Person Relationship Specialty Start Date End Date Valentin Muñoz MD [address] [place] [address] [place] [address] PCP - General Internal Medicine 10/08/10 Valentin Muñoz MD [address] [place] [address] [place] [id number] Assigned PCP 10/03/16 documented as of this encounter
--- OUTSIDE RECORDS SUMMARY | 2024-03-09 10:51 | XMS_ITS | Encounter Summary ---
Author Organization [facility] Address [address] [place] [address]. [place] [address] Care Team Providers Care Mobile Security Specialist Name Role Phone Valentin Muñoz MD Primary Care Provider [phone] Valentin Muñoz MD Unavailable Reason for Visit * Reason Comments Psychiatric Evaluation * Auth/Cert (Routine) Specialty Diagnoses / Procedures Referred By Contdilcia t Referred To Contact EMERGENCY MEDICINE Diagnoses Hypokalemia Anxiety Adjustment disorder with anxious mood Psychosis, unspecified psychosis type (H) Emergency Dept [address] [place] [address] Referral ID Status Reason Start Date Expiration Date Visits Re quested Visits Authorized [id number] 1 1 Encounter Details Date Type Department Care Team (Late st Contact Info) Description 01/17/2024 3:11 PM CDT - 01/18/2024 11:10 AM CDT [facility] Emergency Dept [address] [place] [address] Omero Boyd MD [facility] [address] [place], [place] [id number] Rene Triplett MD [address] [facility] [place] [address] Alba Barnett APRN [facility] [address] [place] [address] Anxiety; Psychosis, unspecified psychosis type (H); Other insomnia Discharge Disposition: Home or Self Care Social [...] week 04/04/2023 How often do you attend [facility] or [facility] services? More than 4 times per year [...] 04/04/2023 PHQ-2 Answer Date Recorded PHQ-2 Score 0 01/20/2023 [facility] - Occupational Stress [...] Sign Reading Time Taken Comments Blood Pressure 152/82 01/18/2024 8:43 AM CDT Pulse 110 01/18/2024 8:43 AM CDT Temperature 36.7 ??C (98.1 ??F) 01/18/2024 8:43 AM CD T Respiratory Rate 18 01/17/2024 6:15 PM CDT Oxygen Saturation 94% 01/18/2024 8:43 AM CDT Inhaled Oxygen Concentration - - Weight 183.4 kg (404 lb 6.4 oz) 01/17/2024 6:00 PM CDT Height 182.9 cm (6') 01/17/2024 6:00 PM CDT Body Mass Index 54.85 01/17/2024 6:00 PM CDT documented in this encounter Discharge Instructions * Discharge Instructions* Javy Collazo LICSW - 01/18/2024 10:49 AM CDT Aftercare Plan If I am feeling unsafe or I am in a crisis, I will: Contact my established care providers Call the National Suicide Prevention Lifeline: 988 Go to the nearest emergency room Call 911 Continue working with providers at [facility] for therapy and psychiatry follow up. Additional Information Today you were seen by a licensed mental health professional through Triage and Transition services, [facility] ([facility]) for a crisis assessment in the Emergency Department at [facility]. It is recommended that you follow up with your established providers (psychiatrist, mental health therapist, and/or primary care doctor - as relevant) as soon as possible. Coordinators from [facility] will be calling you in the next 24-48 hours to ensure that you have the resources you need. You can also contact [facility] coordinators directly at [phone]. You may have been scheduled for or offered an appointment with a mental health provider. [facility] maintains an extensive network of licensed [facility] health providers to connect patients with the services they need. We do not charge providers a fee to participate in our referral network. We match patients with providers based on a patient's specific needs, insurance coverage, and location. Our first effort will be to refer you to a provider within your care system, and will utilize providers outside your care system as needed. documented in this encounter Medications at Time of Discharge Medication Sig Dispensed Refills Start Date End Date amLODIPine (NORVASC) 10 MG tabletIndications:Esse ntial hypertension [...] as of this encounter Progress Notes * Lore Amin RN - 01/17/2024 10:15 PM CDT Patient came out of sensory room and stated he could not sleep. RN offered patient PRN hydroxyzine and melatonin. Patient agreed. Before taking the medication patient stated these aren't placebo medications are they? RN provided reassurance. RN asked patient if he needed any comfort items for sleep. Patient requested a weighted blanket. RN provided patient with weighted blanket. Patient returned to sensory room C and laid down on sleeping mat. * Lore Amin RN - 01/17/2024 10:00 PM CDT Patient came out of sensory room and asked staff if the temperature in the sensory room could be made colder. RN informed patient it could not, but offered patient an ice pack. Patient agreed. RN provided patient with ice pack. Returned to sensory room C and laid down on sleeping mat. * Lore Amin RN - 01/17/2024 8:31 PM CDT Patient approached nursing station and requested to take trazodone. * Lore Amin RN - 01/17/2024 8:16 PM CDT Patient pacing the unit. RN checked in on patient. Patient stated he is just going to walk around for a while and then hopes to take trazodone around 2100. Declined offer for PRN anxiety medication at this time. * Lore Amin RN - 01/17/2024 7:00 PM CDT Patient finished eating dinner and went to sensory room C to lay down. Stated he just wants to try to sleep and requested to take medication once it is available. RN provided patient with sample cup to obtain urine sample for UTOX and UA. Patient verbalized understanding. * Lore Amin RN - 01/17/2024 6:15 PM CDT 38 year old male received from ED for psychiatric evaluation. Reports he has been having increased difficulty sleeping, and severe headaches starting today. Patient would like to speak with a psychiatric provider about medication adjustment. Does not like the way Zyprexa makes him feel. Denies auditory or visual hallucinations. Denies Paranoid thoughts. Denies recent drug or alcohol use. Once on the unit, patient stated I just want to eat, get my medications, and go to sleep. Guarded during conversation. Cooperative during interactions and intake process. Nursing and risk assessments completed. Assessments reviewed with LMHP and physician. Admission information reviewed with patient. Patient given a tour of [facility] and instructions on using the facility. Questions regarding [facility] addressed. Pt safety search completed. documented in this encounter Consult Notes * Sulaiman Santos - 01/17/2024 6:04 PM CDTAssociated Order(s): DIAGNOSTIC EVALUATION CENTER (DEC) ASSESSMENT ORDER Diagnostic Evaluation Consultation Crisis Assessment Patient Name: Ant Beckford Age: [age] year old Legal Sex: male Gender Identity: male Pronouns: Race: White Ethnicity: Not or Language: Cook Islander Patient was assessed: In person Patient location: [facility] EM[facility] [id number] Referral Data and Chief Complaint Ant Beckford presents to the ED by self. Patient is presenting to the ED for the following concerns: Anxiety, Suicidal ideation. Factors that make the mental health crisis life threatening or complex are: PAtient previously presented with an increase in psychosis symptoms and paranoid delusions. He was prescribed Zyprexa but feels more anxious.. Informed Consent and Assessment Methods Explained the crisis assessment process, including applicable information disclosures and limits toconfidentiality, assessed understanding of the process, and obtained consent to proceed with the assessment. Assessment methods included conducting a formal interview with patient, review of medical records, collaboration with medical staff, and obtaining relevant collateral information from familyand community providers when available. : Patient response to interventions: Coping skills were attempted to reduce the crisis: History of the Crisis Patient presents to [facility] ED for concerns of suicidal ideations, issues with sleep and apetite,and concerns that the Zyprexa he is prescribed is not working. Patient has prior diagnosis of CAROLE and Psychosis. Patient was at [facility] on 12/07/23 for paranoia. He was prescribed Zyprexa at that time.Patient is also endorsing a massive headache different from others that he has had previously. [facility] he had been reportedly doing better with sleep. Collateral from his shows they have decided to move and when asked about this he stated this is the source of his currentstress, causing his anxiety to increase bigtime. Patient said he has not felt normal since the 12/06 visit and intro of Zyprexa. In assessment, patient is calm, cooperative, and conversational, endorsing the headache he is currently struggling with, and requested the lights be off when leaving. Collateral provided by patient's confirmed issues/concerns. [facility]. Patient has a PCP in [place], [address] [place] [address], . [facility] [address] [facility] [place] [address], . He has a therapist through the [facility] that he has met with once. 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 He lives with his and 11 year old daughter. Brief Psychosocial History Family: , Children yes (11 year old daughter.) Support System: Employment Status: employed full-time Source of Income: salary/wages Financial Environmental Concerns: none Current Hobbies: music, television/movies/videos, group/social activities Barriers in Personal Life: mental health concerns Significant Clinical History Current Anxiety Symptoms: anxious, racing thoughts, excessive worry Current Depression/Trauma: difficulty concentrating, irritable, thoughts of /suicide Current Somatic Symptoms: anxious, racing thoughts, excessive worry Current Psychosis/Thought Disturbance: inattentive Current Eating Symptoms: loss of appetite Chemical Use History: Alcohol: None Benzodiazepines: None Opiates: None Cocaine: None Marijuana: None Other Use: None Withdrawal Symptoms: (None noted.) Addictions: (None noted.) Past diagnosis: Anxiety Disorder (Psychosis) Family history: Schizophrenia Past treatment: Individual therapy, Psychiatric Medication Management Details of most recent treatment: Medication management and a therapist met with once so far. Other relevant history: There is a history of Schizophrenia in the family. Collateral Information Is there collateral information: Yes Collateral information name, relationship, phone number: Tatyana (Spouse) What happened today: Patient's Tatyana confirmed patient narrative, issues with sleep and theincrease in anxiety and had been doing better. The decision to move has been difficult for the patient. What is different about patient's functioning: Back to having issues with sleep and apetite, as well as confirming patient's recent struggle today with intractable headache. Concern about alcohol/drug use: No Has patient made comments about wanting to kill themselves/others: no If d/c is recommended, can they take part in safety/aftercare planning: yes Additional collateral information: None noted. Risk Assessment [place] Suicide Severity Rating Scale Full Clinical Version: Suicidal Ideation Q1 Wish to be (Lifetime): No Q2 Non-Specific Active Suicidal Thoughts (Lifetime): No 3. Active Suicidal Ideation with any Methods (Not Plan) Without Intent to Act (Lifetime): No Q4 Active Suicidal Ideation with Some Intent to Act, Without Specific Plan (Lifetime): No Q5 Active Suicidal Ideation with Specific Plan and Intent (Lifetime): No Q6 Suicide Behavior (Lifetime): no Suicidal Behavior (Lifetime) Actual Attempt (Lifetime): No Has subject engaged in non-suicidal self-injurious behavior? (Lifetime): No Interrupted Attempts (Lifetime): No Aborted or Self-Interrupted Attempt (Lifetime): No Preparatory Acts or Behavior (Lifetime): No [place] Suicide Severity Rating Scale Recent: Suicidal Ideation (Recent) Q1 Wished to be (Past Month): yes Q2 Suicidal Thoughts (Past Month): yes Q3 Suicidal Thought Method: no Q4 Suicidal Intent without Specific Plan: no Q5 Suicide Intent with Specific Plan: no Level of Risk per Screen: low risk Intensity of Ideation (Recent) Most Severe Ideation Rating (Past 1 Month): 1 Frequency (Past 1 Month): Less than once a week Duration (Past 1 Month): Fleeting, few seconds or minutes Controllability (Past 1 Month): Can control thoughts with some difficulty Deterrents (Past 1 Month): Deterrents definitely stopped you from attempting suicide Reasons for Ideation (Past 1 Month): Completely to end or stop the pain (You couldn't go on living with the pain or how you were feeling) Suicidal Behavior (Recent) Actual Attempt (Past 3 Months): No Total Number of Actual Attempts (Past 3 Months): 0 Actual Attempt Description (Past 3 Months): None noted. Has subject engaged in non-suicidal self-injurious behavior? (Past 3 Months): No Interrupted Attempts (Past 3 Months): No Total Number of Interrupted Attempts (Past 3 Months): 0 Interrupted Attempt Description (Past 3 Months): None noted. Aborted or Self-Interrupted Attempt (Past 3 Months): No Total Number of Aborted or Self-Interrupted Attempts (Past 3 Months): 0 Aborted or Self-Interrupted Attempt Description (Past 3 Months): None noted. Preparatory Acts or Behavior (Past 3 Months): No Total Number of Preparatory Acts (Past 3 Months): 0 Preparatory Acts or Behavior Description (Past 3 Months): None noted. Environmental or Psychosocial Events: helplessness/hopelessness, other life stressors Protective Factors: Protective Factors: strong batista to family unit, community support, or employment, lives in a responsibly safe and stable environment, help seeking, responsibilities and duties to others, including pets and children, intact marriage or domestic partnership, able to access care without barriers, supportive ongoing medical and mental health care relationships Does the patient have thoughts of harming others? Feels Like Hurting Others: no Previous Attempt to Hurt Others: no Current presentation: Irritable Violence Threats in Past 6 Months: None noted. Current Violence Plan or Thoughts: None noted. Is the patient engaging in sexually inappropriate behavior?: no Duty to warn initiated: no Duty to warn details: None noted. Is the patient engaging in sexually inappropriate behavior? no Mental Status Exam Affect: Constricted Appearance: Appropriate Attention Span/Concentration: Attentive Eye Contact: Engaged Fund of Knowledge: Appropriate Language /Speech Content: Fluent Language /Speech Volume: Normal Language /Speech Rate/Productions: Normal Recent Memory: Intact Remote Memory: Intact Mood: Normal Orientation to Person: Yes Orientation to Place: Yes Orientation to Time of Day: Yes Orientation to Date: Yes Situation (Do they understand why they are here?): Yes Psychomotor Behavior: Underactive Thought Content: Suicidal Thought Form: Intact Medication Psychotropic medications: Medication Orders - Psychiatric [...] due to other mental disorder F51.05, F99 Primary Problem This Admission Active Hospital Problems *Anxiety Psychosis, unspecified psychosis type (H) Clinical Summary and Substantiation of Recommendations Patient is seeking a medication adjustment based on current concerns of sleep issues, apetite issues, and headache. Patient had been prescribed Zyprexa at his last [facility] visit on 12/07/23 and had initially enjoyed some relief, only to return today seeking medication adjustment and stabilization. Patient has endorsed current passive SI, likely associated with his current headache pain. No delusions appear to be present associated with the last presentation, and confirms patient narrative. Patient would benefit from [facility] and an assessment of medications by the provider prior to discharge. Patient coping skills attempted to reduce the crisis: Disposition Recommended disposition: Observation Reviewed case and recommendations with attending provider. Attending Name: RAHUL Willis Attending concurs with disposition: yes Patient and/or validated legal guardian concurs with disposition: Final disposition: observation Legal status on admission: Voluntary/Patient has signed consent for treatment Assessment Details Total duration spent with the patient: 30 min CPT code(s) utilized: 83882 - Psychotherapy for Crisis - 60 (30-74*) min Sulaiman Santos MA Psychotherapist DEC - Triage & Transition Services Callback: [phone] Associated attestation - Darlene Hand LICSW - 01/21/2024 2:18 PM CDT Service Performed and Documented by Clinical Trainee Note reviewed and clinical supervision by ERMELINDA Martinez,BAR TENDER, ERMELINDA, January 21, 2024 documented in this encounter ED Notes * Elena Lyon RN - 01/18/2024 11:20 AM CDT Patient agrees to discharge plan. Discharge instructions reviewed with patient including follow-up care plan. Medications: gabapentin sent to patient pharmacy of choice. Reviewed safety plan and outpatient resources. Denies SI and HI. All belongings that were brought into the hospital have been returned to patient. Escorted off the unit at 1110 accompanied by [facility] staff. Discharged to home via self transportation. * Rene Triplett MD - 01/18/2024 11:10 AM CD[facility] Dis[facility] Summary [facility] Emergency Department Discharge Date: 01/18/2024 Ant Beckford Age: [age] year old Date of : 1985 Brief HPI & Initial ED Course Chief Complaint Patient presents with Psychiatric Evaluation HPI Ant Beckford is a 38 year old male with history notable for insomnia and anxiety who presents to the emergency department reporting heightened anxiety and worsening insomnia. He was transferred to the [facility] unit for psychiatric assessment where he is currently under observation status and approaching 20 hours in the emergency department. Overnight, there were no acute issues. On reassessment today, the patient confirms that symptoms of paranoia remain in remission. He focused on discussing concerns related to insomnia, describing anxious and ruminating thoughts in the evening related to reality based tasks. This impairs his ability to fall asleep at a desired time leading to a sense of fatigue and low energy during the day. He explains that his outpatient provider has adjusted the doseof Zyprexa in hopes of improving his sleep however has not been beneficial for that purpose. He is seeking additional consultation to aid with insomnia. He denied symptoms of psychosis. He denied suicidal and homicidal thoughts. He denied symptoms of a depressive episode. He anticipates discharge home today after our meeting. Physical Examination BP: (!) 152/82 Pulse: 110 Temp: 98.1 ??F (36.7 ??C) Resp: 18 Height: 182.9 cm (6') Weight: (!) 183.4 kg (404 lb 6.4 oz) SpO2: 94 % Lying Orthostatic BP: 144/93 Lying Orthostatic Pulse: 96 bpm Sitting Orthostatic BP: 148/80 Sitting Orthostatic Pulse: 102 bpm Standing Orthostatic BP: 118/84 Standing Orthostatic Pulse: 114 bpm Physical Exam General: Appears stated age. Neuro: Alert and fully oriented. Extremities appear to demonstrate normal strength on visual inspection. Integumentary/Skin: no rash visualized, normal color Psychiatric Examination Appearance: awake, alert Attitude: cooperative Eye Contact: fair Mood: Fine Affect: appropriate and in normal range Speech: clear, coherent Psychomotor Behavior: no evidence of tardive dyskinesia, dystonia, or tics Thought Process: logical and linear Associations: no loose associations Thought Content: no evidence of suicidal ideation or homicidal ideation and no evidence of psychotic thought Insight: fair Judgement: fair Oriented to: time, person, and place Attention Span and Concentration: fair Recent and Remote Memory: fair Language: able to name/identify objects without impairment Fund of Knowledge: intact with awareness of current and past events Results ED Course as of 01/18/24 1104 MonJanuary 17, 2024 0326 I obtained history and examined the patient as noted above. 1622 I rechecked and updated the patient. 1730 I consulted with [facility]. Labs Ordered and Resulted from Time of ED Arrival to Time of ED Departure COMPREHENSIVE METABOLIC PANEL - Abnormal Result Value Sodium 139 Potassium 3.1 (*) Carbon Dioxide (CO2) 24 Anion Gap 15 Urea Nitrogen 16.0 Creatinine 1.06 GFR Estimate >90 Calcium 9.5 Chloride 100 Glucose 105 (*) Alkaline Phosphatase 56 AST 29 ALT 45 Protein Total 7.1 Albumin 4.5 Bilirubin Total 0.7 CBC WITH PLATELETS AND DIFFERENTIAL - Abnormal WBC Count 8.9 RBC Count 5.93 (*) Hemoglobin 16.7 Hematocrit 48.0 MCV 81 MCH 28.2 MCHC 34.8 RDW 13.2 Platelet Count 377 % Neutrophils 69 % Lymphocytes 18 % Monocytes 12 % Eosinophils 1 % Basophils 0 % Immature Granulocytes 0 NRBCs per 100 WBC 0 Absolute Neutrophils 6.1 Absolute Lymphocytes 1.6 Absolute Monocytes 1.0 Absolute Eosinophils 0.1 Absolute Basophils 0.0 Absolute Immature Granulocytes 0.0 Absolute NRBCs 0.0 LACTIC ACID WHOLE BLOOD WITH 1X REPEAT IN 2 HR WHEN >2 - Normal Lactic Acid, Initial 1.5 MAGNESIUM - Normal Magnesium 2.3 URINE DRUG SCREEN PANEL - Normal Amphetamines Urine Screen Negative Barbituates Urine Screen Negative Benzodiazepine Urine Screen Negative Cannabinoids Urine Screen Negative Cocaine Urine Screen Negative Fentanyl Qual Urine Screen Negative Opiates Urine Screen Negative PCP Urine Screen Negative ROUTINE UA WITH MICROSCOPIC REFLEX TO CULTURE Observation Course The patient was found to have a psychiatric condition that would benefit from an observation stay in the emergency department for further psychiatric stabilization and/or coordination of a safe disposition. The plan upon observation admission included serial assessments of psychiatric condition, pot ential administration of medications if indicated, further disposition pending the patient's psychiatric course during the monitoring period. Serial assessments of the patient's psychiatric condition were performed. Nursing notes were reviewed. During the observation period, the patient did not require medications for agitation, and did not require restraints/seclusion for patient and/or provider safety. After a period of working with the treatment team on the [facility] unit, the patient's mental state improved to allow a safe transition to outpatient care. After counseling on the diagnosis, work-up, and treatment plan, the patient was discharged. Close follow-up with a psychiatrist and/or therapist was recommended and community psychiatric resources were provided. Patient is to return to the ED if any urgent or potentially life-threatening concerns. Discharge Diagnoses: Final diagnoses: Anxiety Psychosis, unspecified psychosis type (H) - history of paranoia Other insomnia Treatment Plan: -Begin gabapentin 800 mg nightly for reduction of anxiety with secondary benefits at contributing to sedation that can lessen insomnia. Risks and benefits were reviewed. -Continue Zyprexa 10 mg nightly for mood stabilization and maintain remission of psychosis. If symptoms remain stable, he may continue to work with his outpatient provider on gradually reducing the dose of Zyprexa to find the least effective dose. -Resume outpatient medication management appointments and psychotherapy -Discharge home today. At the time of discharge, the patient's acute suicide risk was determined to be low due to the following factors: Reduction in the intensity of mood/anxiety symptoms that preceded the admission, denial of suicidal thoughts, denies feeling helpless or helpless, not currently under the influence of alcohol or illicit substances, denies experiencing command hallucinations, no immediate access to firearms. The patient's acute risk could be higher if noncompliant with their treatment plan, medications, follow-up appointments or using illicit substances or alcohol. Protective factors include: social supports, stable housing I spent more than 30 minutes on discharge day activities. -- Rene Triplett MD [facility] EM[facility] Unit Rene Triplett MD 01/18/24 1141 * Elena Lyon RN - 01/18/2024 8:20 AM CDT Pt requested to speak to someone regarding medications that were given last night and what the planmight be for today. Pt reports that he did get a few hours of sleep after taking temazepam. Pt reports that some of his difficulty with sleep last night was the temperature of the sensory room. Pt denies headache this morning and states that he would like to discharge back home as he is wanting to get some things done at home. Pt reports that is he not interested in increasing his bedtime zyprexadose as he feels the 10mg is okay. Pt reports feeling restless at this time and was observed pacingaround the unit this morning. * Kelvin Brooks RN - 01/18/2024 7:25 AM CDT Pt hasn't slept much during the night. Pt tried PRN Trazadone - both 50 mg and 100 mg - and it was unsuccessful. Another PRN, Restoril, was tried and produced marginal effect. Pt was able to sleep for a couple of hours. Otherwise, no signs of distress noted. * Alba Barnett APRN CNP - 01/17/2024 7:45 PM CDT EmPATH Unit - Initial Psychiatric Observation Note [facility] Emergency Department Observation Initiation Date: January 17, 2024 Ant Beckford Age: [age] year old Date of : 1985 History Chief Complaint Patient presents with Psychiatric Evaluation HPI Ant Beckford is a 38 year old male with a past history notable for unspecified psychosis who presented to the emergency department with worsening anxiety, insomnia, and an intractable headache in the context of psychosocial stressors. In the emergency department, this patient was determined to bemedically stable and transferred to the [facility] unit for psychiatric assessment. Record review indicates that patient has previously presented to [facility] 12/06-12/08/23 and has been following outpatient with [facility] for ongoing psych med management They have currently been in the emergency department for 4 hours. Ant tells me that he came to the ED due to a headache that he couldn't get to go away. He tellsme that he has been having trouble sleeping the past week and feels anxious. He explains that following his last stay at [facility], he returned home and felt as though he was doing well. He saw an OP provider at [place] who increasing his zyprexa to 20mg at night. This was too sedating to they recently decreased this back to 10mg 2 weeks ago. In conjunction with this, he tells me that his family found a house they liked and decided to make an offer and sell their current house. He explains that this happened very fast, within a week and has been overwhelming. He is concerned about finances andthe increased mortgage cost. He cannot stop thinking about the financial aspects. He has been having difficulty concentrating at work due to this added stress. Earlier this week he felt increasingly overwhelmed and stressed which lead to passive suicidal thoughts of wanting it to end. He denies any specific plan and denies intent. He currently denies suicidal thoughts. Denies AH/VH/HI and no evidence of psychosis. He's unsure if Zyprexa is helpful noting that it did initially seem beneficial and he no longer has paranoia. He feels as though it has stopped working when his stressors increased over the past week, primarily poor sleep. He asks about medications for sleep and anxiety. He tells me he wants to sleep in a sensory room in hopes to relieve his headache. He's hopeful that once his house move is complete, his stress level and subsequent anxiety will decrease. He recently startedseeing a therapist however he has only had one session. Past Medical History Past Medical History: Diagnosis Date Hypertension Obese FAITH (obstructive sleep apnea) 03/24/2022 Past Surgical History: Procedure Laterality Date ORTHOPEDIC SURGERY Left 2002 left foot surgery VASECTOMY Bilateral 12/14/2018 Procedure: Bilateral vasectomy; Surgeon: Mark Miller MD; Location: OR amLODIPine (NORVASC) 10 MG tablet lisinopril-hydrochlorothiazide (ZESTORETIC) 20-25 MG tablet OLANZapine (ZYPREXA) 10 MG tablet Allergies Allergen Reactions Cephalexin Rash Family History Family History Problem [...] all other systems negative. Physical Examination BP: (!) 87/62 Pulse: 120 Temp: 98.6 ??F (37 ??C) Resp: 24 Height: 182.9 cm (6') Weight: (!) 183.4 kg (404 lb 6.4 oz) SpO2: 96 % Lying Orthostatic BP: 144/93 Lying Orthostatic Pulse: 96 bpm Sitting Orthostatic BP: 148/80 Sitting Orthostatic Pulse: 102 bpm Standing Orthostatic BP: 118/84 Standing Orthostatic Pulse: 114 bpm Physical Exam General: Appears stated age. Neuro: Alert and fully oriented. Extremities appear to demonstrate normal strength on visual inspection. Integumentary/Skin: no rash visualized, normal color Psychiatric Examination Appearance: awake, alert, adequately groomed, dressed in hospital scrubs, and appeared as age stated Attitude: cooperative Eye Contact: fair Mood: anxious Affect: intensity is blunted Speech: clear, coherent and normal prosody Psychomotor Behavior: no evidence of tardive dyskinesia, dystonia, or tics and intact station, gaitand muscle tone Thought Process: linear Associations: no loose associations Thought Content: passive suicidal ideation present, no auditory hallucinations present, no visual hallucinations present, and denies paranoia Insight: fair Judgement: fair Oriented to: time, person, and place Attention Span and Concentration: fair Recent and Remote Memory: fair Language: able to name/identify objects without impairment Fund of Knowledge: intact with awareness of current and past events ED Course ED Course as of 01/17/241858January 17, 2024 0326 I obtained history and examined the patient as noted above. 1621 I rechecked and updated the patient. 1729 I consulted with [facility]PATH. Labs Ordered and Resulted from Time of ED Arrival to Time of ED Departure COMPREHENSIVE METABOLIC PANEL - Abnormal Result Value Sodium 139 Potassium 3.1 (*) Carbon Dioxide (CO2) 24 Anion Gap 15 Urea Nitrogen 16.0 Creatinine 1.06 GFR Estimate >90 Calcium 9.5 Chloride 100 Glucose 105 (*) Alkaline Phosphatase 56 AST 29 ALT 45 Protein Total 7.1 Albumin 4.5 Bilirubin Total 0.7 CBC WITH PLATELETS AND DIFFERENTIAL - Abnormal WBC Count 8.9 RBC Count 5.93 (*) Hemoglobin 16.7 Hematocrit 48.0 MCV 81 MCH 28.2 MCHC 34.8 RDW 13.2 Platelet Count 377 % Neutrophils 69 % Lymphocytes 18 % Monocytes 12 % Eosinophils 1 % Basophils 0 % Immature Granulocytes 0 NRBCs per 100 WBC 0 Absolute Neutrophils 6.1 Absolute Lymphocytes 1.6 Absolute Monocytes 1.0 Absolute Eosinophils 0.1 Absolute Basophils 0.0 Absolute Immature Granulocytes 0.0 Absolute NRBCs 0.0 LACTIC ACID WHOLE BLOOD WITH 1X REPEAT IN 2 HR WHEN >2 - Normal Lactic Acid, Initial 1.5 MAGNESIUM - Normal Magnesium 2.3 ROUTINE UA WITH MICROSCOPIC REFLEX TO CULTURE Assessments & Plan (with Medical Decision Making) Patient presenting with elevated anxiety and insomnia in the context of psychosocial stressors. Patient reports beneficial response to olanzapine during his last Em[facility] stay and resolution of symptoms of psychosis, primarily paranoia. 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 Continued work with outpatient supports will be helpful for diagnostic clarity. Treatment plan focused on medications targeting affect stabilization and anxiety. Patient would benefit from increased psychotherapy. . Nursing notes reviewed noting no acute issues. I have reviewed the assessment completed by the [facility]. During the observation period, the patient did [...] the monitoring period. Preliminary diagnosis: ICD-10-CM 1. Hypokalemia E87.6 2. Anxiety F41.9 3. Adjustment disorder with anxious mood F43.22 4. Psychosis, unspecified psychosis type (H) F29 r/o schiozaffective & bipolar disorder Treatment Plan: -Increase olanzapine from 10mg to 15mg further targeting affect stabilization with added sedating side effect promoting sleep -Trazodone 50mg at bedtime as needed for sleep -Hydroxyzine 50mg every 6 hours as needed for anxiety -Medication education provided this visit including but not limited to: Rationale for medication, importance of medication adherence, medication interactions, common medication side effects, benefitsof medications. -Individual psychotherapy and outpatient psychiatric care recommended for additional support and ongoing development of nonpharmacologic coping skills and strategies. -Anticipate resuming outpatient medication management appointments and psychotherapy -Problem focused supportive therapy and education provided today related to patient's current and acute stressors, symptoms, and diagnoses. -Remain at [facility] under observation with reassessment tomorrow -- Alba aBrnett APRN CNP [facility] EM[facility]GENCY DEPT Em[facility] Unit Alba Barnett APRN CNP 01/17/241944 * Teddy Garcia RN - 01/17/2024 5:26 PM CDT [facility] ED to EMPATH Checklist: Goal for EMPATH: Depression management Current Behavior: Calm and Cooperative Safety Concerns: None Legal Hold Status: Voluntary Medically Cleared by ED provider: Yes Patient Therapeutically Searched: Therapeutic search by ED staff (strings, belts, shoes, pockets, electronics, etc.) Belongings: In room locker Independent Ambulation at Baseline: Yes/No: Yes Participates in Care/Conversation: Yes/No: Yes Patient Informed about EMPATH: Yes/No: Yes DEC: Ordered and completed Patient Ready to be Transferred to [facility]? Yes/No: Yes * Teddy Garcia RN - 01/17/2024 5:22 PM CDT DEC evaluation completed. * Alba Gray RN - 01/17/2024 3:24 PM CDT Bed: ED17 Expected date: Expected time: Means of arrival: Comments: Triage * Alba Gray RN - 01/17/2024 3:12 PM CDT Patient presents to the ER looking to go to EMPATH unit. Per patient report, was recently here in November and had a recent medication adjustment. Patient reports that he feels like he can't sleep and isnt on the right medications. Patient diaphoretic and tachycardic in triage. Endorses a 7/10 headache Triage Assessment (Adult) Row Name 01/17/24 1512 Triage Assessment Airway WDL WDL Respiratory WDL Respiratory WDL WDL Skin Circulation/Temperature WDL Skin Circulation/Temperature WDL X Cardiac WDL Cardiac WDL WDL Peripheral/Neurovascular WDL Peripheral Neurovascular WDL WDL Cognitive/Neuro/Behavioral WDL Cognitive/Neuro/Behavioral WDL WDL * Omero Boyd MD - 01/17/2024 3:08 PM CDT Emergency Department Note History of Present Illness Chief Complaint Psychiatric Evaluation HPI Ant Beckford is a 38 year old male with a history of hypertension, insomnia, and anxiety who presents for a psychiatric evaluation. The patient started zyrprexa a few weeks ago, which he feels is not working as he is still having difficulty sleeping. The patient described a pulsing headache that began around 1 pm today, and he indicated pain all over his head. He endorsed some lightheadedness throughout the day today, and that he has had poor sleep for the last few days. He also endorses a lower appetite, but that he has a normal level of water intake. He denies any nausea, fever, vomiting,or diarrhea. He denies any difficulties urinating or having bowel movements. Independent Historian None Review of External Notes None Past Medical History Medical History and Problem List Hypertension Obstructive sleep apnea Psychosis Anxiety Paranoia Insomnia Medications Amlodipne Olanzapine Lisinopril-hydrochlorothiazide Surgical History Left foot orthopedic surgery Bilateral vasectomy Physical Exam Patient Vitals for the past 24 hrs: BP Temp Temp src Pulse Resp SpO2 01/17/24 1722 -- 98.6 ??F (37 ??C) Temporal -- -- -- 01/17/24 1718 116/84 -- -- 101 19 93 % 01/17/24 1610 98/57 -- -- 101 25 97 % 01/17/24 1600 109/73 -- -- 101 24 93 % 01/17/24 1555 -- -- -- 104 -- 94 % 01/17/24 1545 117/80 -- -- 104 24 94 % 01/17/24 1540 -- -- -- 103 28 94 % 01/17/24 1530 120/74 -- -- 107 -- 95 % 01/17/24 1518 (!) 87/62 -- -- 120 24 96 % Physical Exam HENT: Head: Normocephalic. Mouth/Throat: Mouth: Mucous membranes are moist. Eyes: Pupils: Pupils are equal, round, and reactive to light. Cardiovascular: Rate and Rhythm: Normal rate. Pulmonary: Effort: Pulmonary effort is normal. Abdominal: General: Abdomen is flat. Musculoskeletal: General: Normal range of motion. Skin: General: Skin is warm. Capillary Refill: Capillary refill takes less than 2 seconds. Neurological: General: No focal deficit present. Mental Status: He is alert and oriented to person, place, and time. Psychiatric: Mood and Affect: Mood normal. Diagnostics Lab Results Labs Ordered and Resulted from Time of ED Arrival to Time of ED Departure COMPREHENSIVE METABOLIC PANEL - Abnormal Result Value Sodium 139 Potassium 3.1 (*) Carbon Dioxide (CO2) 24 Anion Gap 15 Urea Nitrogen 16.0 Creatinine 1.06 GFR Estimate >90 Calcium 9.5 Chloride 100 Glucose 105 (*) Alkaline Phosphatase 56 AST 29 ALT 45 Protein Total 7.1 Albumin 4.5 Bilirubin Total 0.7 CBC WITH PLATELETS AND DIFFERENTIAL - Abnormal WBC Count 8.9 RBC Count 5.93 (*) Hemoglobin 16.7 Hematocrit 48.0 MCV 81 MCH 28.2 MCHC 34.8 RDW 13.2 Platelet Count 377 % Neutrophils 69 % Lymphocytes 18 % Monocytes 12 % Eosinophils 1 % Basophils 0 % Immature Granulocytes 0 NRBCs per 100 WBC 0 Absolute Neutrophils 6.1 Absolute Lymphocytes 1.6 Absolute Monocytes 1.0 Absolute Eosinophils 0.1 Absolute Basophils 0.0 Absolute Immature Granulocytes 0.0 Absolute NRBCs 0.0 LACTIC ACID WHOLE BLOOD WITH 1X REPEAT IN 2 HR WHEN >2 - Normal Lactic Acid, Initial 1.5 MAGNESIUM - Normal Magnesium 2.3 ROUTINE UA WITH MICROSCOPIC REFLEX TO CULTURE Imaging None EKG ECG taken at 15:35, ECG read at 15:36 Sinus tachycardia Otherwise normal ECG Rate 102 bpm. NC interval 154 ms. QRS duration 100 ms. QT/QTc 346/450 ms. P-R-T axes 29 -2 19. Independent Interpretation None ED Course Medications Administered Medications ketorolac (TORADOL) injection 15 mg (15 mg Intravenous $Given 01/17/24 1545) sodium chloride 0.9% BOLUS 1,000 mL (0 mLs Intravenous Stopped 01/17/24 1722) potassium chloride misa ER (KLOR-CON M20) CR tablet 40 mEq (40 mEq Oral $Given 01/17/24 1725) Procedures None Discussion of Management 17:04 I consulted with DEC. Social Determinants of Health adding to complexity of care None ED Course ED Course as of 01/17/24 173MonJanuary 17, 2024 0326 I obtained history and examined the patient as noted above. 1622 I rechecked and updated the patient. 1730 I consulted with EmPATH. Medical Decision Making / Diagnosis [facility] Diagnoses: None MIPS None MDM Ant Beckford is a 38 year old male who presents with thoughts of suicide and difficulty sleeping.Patient noted to be hypotensive on arrival possibly vasovagal. Extensive workup entertained due to his presentation including lab work lactic acid IV fluids. Patient did respond. Slightly borderline low potassium. DEC did see the patient and offered their assessment patient was thought to be medically stable after serial blood pressures improved and was boarded for DEC assessment and likely empath assessment Disposition The patient was transferred to [facility]. ICD-10 Codes: ICD-10-CM 1. Hypokalemia E87.6 2. Insomnia due to other mental disorder F51.05 F99 Discharge Medications New Prescriptions No medications on file Scribe Disclosure: I, Tiffani Dominguez, am serving as a scribe at 3:49 PM on 01/17/2024 to document services personally performed by Omero Boyd MD based on my observations and the provider's statements to me. Omero Boyd MD 02/12/242055 documented in this encounter Miscellaneous Notes * Plan of Care - Sulaiman Santos - 01/17/2024 6:04 PM CDT Ant Beckford January 17, 2024 Plan of Care Hand-off Note Patient Care Path: observation Plan for Care: Patient is seeking a medication adjustment based on current concerns of sleep issues, apetite issues, and headache. Patient had been prescribed Zyprexa at his last Emp[facility] visit on 12/07/23 and had initially enjoyed some relief, only to return today seeking medication adjustment and stabilization. Patient has endorsed current passive SI, likely associated with his current headache pain. No delusions appear to be present associated with the last presentation, and confirms patient narrative. Patient would benefit from Empath and an assessment of medications by the provider prior to discharge. Identified Goals and Safety Issues: Stabilize patient anxiety. Evaluate current medications and adjust if deemed appropriate. Ensure patient is set up with med mgmt and therapist if desired. Overview: Tatyana Beckford, , Legal Status: Legal Status at Admission: Voluntary/Patient has signed consent for treatment Psychiatry Consult: Yes Updated MD and RN regarding plan of care. Sulaiman Santos MA Associated attestation - Darlene Hand LICSW - 01/21/2024 2:54 PM CDT Service Performed and Documented by Clinical Trainee Note reviewed and clinical supervision by ERMELINDA Martinez,ERMELINDA ALFARO, January 21, 2024 documented in this encounter Plan of Treatment Upcoming Encounters Date Type Department Care Team (Skylar Contact Info) Description 04/01/2024 2:00 PM CDT Appointment [facility] [address] [place] [id number] Omero Pham MD [facility] [address] [place] [address] 04/01/2024 2:40 PM CDT Office Visit [facility] [place] [address] [place] [phone] Omero Pham MD [facility] [address] [place] [address] 04/09/2024 2:00 PM CDT Office Visit [facility] [address] [place] [phone] Valentin Muñoz MD [address] [place] [id number] Roro Aecvedo, CECI [address] [place], [place] [phone] 06/18/2024 12:00 PM CDT Virtual Visit [facility] [place] [address] [place] [phone] Josephine Krishnan PA-C [address] [place], [place] [phone] documented as of this encounter Procedures Procedure Name Priority Date/Time Associated Diagnosis Comments URINE DRUG SCREEN STAT 01/17/2024 11: 57 PM CDT URINE DRUG SCREEN PANEL STAT 01/17/2024 11:57 PM CDT LACTIC ACID WHOLE BLOOD WITH 1X REPEAT IN 2 HR WHEN >2 STAT 01/17/2024 3:36 PM CDT CBC WITH PLATELETS AND DIFFERENTIAL STAT 01/17/2024 3:36 PM CDT CBC WITH PLATELETS & DIFFERENTIAL STAT 01/17/2024 3:36 PM CDT MAGNESIUM STAT 01/17/2024 3:36 PM CDT COMPREHENSIVE METABOLIC PANEL STAT 01/17/2024 3:36 PM CDT EKG 12-LEAD, TRACING ONLY STAT 01/17/2024 3:35 PM CDT documented in this encounter Results * Urine Drug Screen Panel (01/17/2024 11:57 PM CDT) [facility] Amphetamines Urine Screen Negative Screen Negative 01/18/2024 12:40 AM CDT LABORATORY Comment:Cutoff for a negativ e amphetamine is less than 500 ng/mL. Barbituates Urine Screen Negative Screen Negative [facility]24 [facility] Comment:Cutoff for a negativ e barbiturate is less than 200 ng/mL. Benzodiazepine Urine Screen Negative Screen Negative 01/18/2024 12:40 AM [facility] Comment:Cutoff for a negativ e benzodiazepine is less than 100 ng/mL. Cannabinoids Urine Screen Negative Screen Negative 01/18/2024 12:40 AM [facility] Comment:Cutoff for a negativ e cannabinoid is less than 50 ng/mL. Cocaine Urine Screen Negative Screen Negative 01/18/2024 12:40 AM T LABORATORY Comment:Cutoff for a negativ e cocaine is less than 300 ng/mL. Fentanyl Qual Urine Screen Negative Screen Negative 01/18/2024 12:40 AM T LABORATORY Comment:Cutoff for negative fentanyl is less than 5 ng/mL. Opiates Urine Screen Negative Screen Negative 01/18/2024 12:40 AM [facility] Comment:Cutoff for a negativ e opiate is less than 300 ng/mL. PCP Urine Screen Negative Screen Negative 01/18/2024 12:40 AM CDT LABORATORY Comment:Cutoff for a negativ e PCP is less than 25 ng/mL. Urine MID-STREAM URINE SPECIMEN / Unknown Non-blood Collection / Unknown 01/17/2024 11:57 PM CDT 01/18/2024 12:05 AM CDT Omero Boyd MD LAB - URINE [facility] [address], [address] [place] [address], [place] [phone] * Magnesium (01/17/2024 3:36 PM CDT) Magnesium 2.3 1.7 - 2.3 mg/dL 01/17/2024 4:53 PM CDT LABORATORY Blood STRUCTURE OF RIGHT HAND / Unknown Venipuncture / Unknown 01/17/2024 3:36 PM CDT 01/17/2024 3:42 PM CDT Omero Boyd MD LAB - BLOOD [facility] [address], [address] [place] [address], [place] [phone] * (ABNORMAL) CBC with platelets and differential (01/17/2024 3:36 PM CDT) WBC Count 8.9 4.0 - 11.0 10e3/uL 01/17/2024 3:47 PM CDT LABORATORY RBC Count 5.93(H) 4.40 - 5.90 10e6/uL 01/17/2024 3:47 PM CDT LABORATORY Hemoglobin 16.7 13.3 - 17.7 g/dL 01/17/2024 3:47 PM CDT LABORATORY Hematocrit 48.0 40.0 - 53.0 % 01/17/2024 3:47 PM CDT LABORATORY MCV 81 78 - 100 fL 01/17/2024 3:47 PM CDT LABORATORY MCH 28.2 26.5 - 33.0 pg 01/17/2024 3:47 PM CDT LABORATORY MCHC 34.8 31.5 - 36.5 g/dL 01/17/2024 3:47 PM CDT LABORATORY RDW 13.2 10.0 - 15.0 % 01/17/2024 3:47 PM CDT LABORATORY Platelet Count 377 150 - 450 10e3/uL 01/17/2024 3:47 PM CDT LABORATORY % Neutrophils 69 % 01/17/2024 3:47 PM CDT LABORATORY % Lymphocytes 18 % 01/17/2024 3:47 PM CDT LABORATORY % Monocytes 12 % 01/17/2024 3:47 PM CDT LABORATORY % Eosinophils 1 % 01/17/2024 3:47 PM CDT LABORATORY % Basophils 0 % 01/17/2024 3:47 PM CDT LABORATORY % Immature Granulocytes 0 % 01/17/2024 3:47 PM CDT LABORATORY NRBCs per 100 WBC 0 <1 /100 024 3:47 PM CDT LABORATORY Absolute Neutrophils 6.1 1.6 - 8.3 10e3/uL 01/17/2024 3:47 PM CDT LABORATORY Absolute Lymphocytes 1.6 0.8 - 5.3 10e3/uL 01/17/2024 3:47 PM CDT LABORATORY Absolute Monocytes 1.0 0.0 - 1.3 10e3/uL 01/17/2024 3:47 PM CDT LABORATORY Absolute Eosinophils 0.1 0.0 - 0.7 10e3/uL 01/17/2024 3:47 [facility] Absolute Basophils 0.0 0.0 - 0.2 10e3/uL 01/17/2024 3:47 PM CDT LABORATORY Absolute Immature Granulocytes 0.0 <=0.4 10e3/uL 01/17/2024 3:47 PM CDT LABORATORY Absolute NRBCs 0.0 10e3/uL 01/17/2024 3:47 PM CDT LABORATORY Blood STRUCTURE OF RIGHT HAND / Unknown Venipuncture / Unknown 01/17/2024 3:36 PM CDT 01/17/2024 3:42 PM CDT Omero Boyd MD LAB - BLOOD [facility] [address], [address] [place] [address], [place] [phone] * Lactic acid whole blood with 1x repeat in 2 hr when >2 (01/17/2024 3:36 PM CDT) Lactic Acid, Initial 1.5 0.7 - 2.0 mmol/L 01/17/2024 3:48 PM CDT LABORATORY Blood STRUCTURE OF RIGHT HAND / Unknown Venipuncture / Unknown 01/17/2024 3:36 PM CDT 01/17/2024 3:42 PM CDT Omero Boyd MD LAB - BLOOD [facility] Performing Organization Address City/[facility] Co de Phone Number LABORATORY [facility] [address], [address] [place] [address], [place] [phone] * (ABNORMAL) Comprehensive metabolic panel (01/17/2024 3:36 PM CDT) Pathologist [facility] Sodium 139 135 - 145 mmol/L 01/17/2024 4:18 PM CDT LABORATORY Comment:Reference intervals for this test were updated on 05/16/2023 to more accurately reflect our healthy population. There may be differences in the flagging of prior results with similar values performed with this method. Interpretation of those prior results can be made in the context of the updated reference intervals. Potassium 3.1(L) 3.4 - 5.3 mmol/L 01/17/2024 4:18 PM CDT LABORATORY Carbon Dioxide (CO2) 24 22 - 29 mmol/L 01/17/2024 4:18 PM CDT LABORATORY Anion Gap 15 7 - 15 mmol/L 01/17/2024 4:18 PM CDT LABORATORY Urea Nitrogen 16.0 6.0 - 20.0 mg/dL 01/17/2024 4:18 PM CDT LABORATORY Creatinine 1.06 0.67 - 1.17 mg/dL 01/17/2024 4:18 PM CDT LABORATORY GFR Estimate >90 >60 mL/min/1. 73m2 01/17/2024 4:18 PM CDT LABORATORY Calcium 9.5 8.6 - 10.0 mg/dL 01/17/2024 4:18 PM CDT LABORATORY Chloride 100 98 - 107 mmol/L 01/17/2024 4:18 PM CDT LABORATORY Glucose 105(H) 70 - 99 mg/dL 01/17/2024 4:18 PM CDT LABORATORY Alkaline Phosphatase 56 40 - 150 U/L 01/17/2024 4:18 PM CDT LABORATORY AST 29 0 - 45 U/L 01/17/2024 4:18 PM CDT LABORATORY Comment:Reference intervals for this test were updated on 01/30/2023 to more accurately reflect our healthy population. There may be differences in the flagging of prior results with similar values performed with this method. Interpretation of those prior results can be made in the context of the updated reference intervals. ALT 45 0 - 70 U/L 01/17/2024 4:18 PM CDT LABORATORY Comment:Reference intervals for this test were updated on 01/30/2023 to more accurately reflect our healthy population. There may be differences in the flagging of prior results with similar values performed with this method. Interpretation of those prior results can be made in the context of the updated reference intervals. Protein Total 7.1 6.4 - 8.3 g/dL 01/17/2024 4:18 PM CDT LABORATORY Albumin 4.5 3.5 - 5.2 g/dL 01/17/2024 4:18 PM CDT LABORATORY Bilirubin Total 0.7 <=1.2 mg/dL 01/17/2024 4:18 PM CDT LABORATORY Blood STRUCTURE OF RIGHT HAND / Unknown Venipuncture / Unknown 01/17/2024 3:36 PM CDT 01/17/2024 3:42 PM CDT Omero Boyd MD LAB - BLOOD GILSON MARTINEZ [facility] Organization Address City/State/ZIP Co de Phone Number LABORATORY [facility] [address] 1st floor, Room [address] [place] [address], [place] [phone] * EKG 12-lead, tracing only (01/17/2024 3:35 PM CDT) Systolic Blood Pressure mmHg RADIOLOGY RESULTS Diastolic Blood Pressure mmHg RADIOLOGY RESULTS Ventricular Rate 102 BPM RAD IOLOGY RESULTS Atrial Rate 102 BPM RADIOLOG Y RESULTS NC Interval 154 ms RADIOLOG Y RESULTS QRS Duration 100 ms RADIOLO GY RESULTS QT 346 ms RADIOLOGY RESULTS QTc 450 ms RADIOLOGY RESULTS P [place] 29 degrees RADIOLOGY RESULTS R AXIS -2 degrees RADIOLOGY RESULTS T [place] 19 degrees RADIOLOGY RESULTS Interpretation ECG Sinus tachycardia Otherwise normal ECG When compared with ECG of 16-JAN-2023 08:19, No significant change was found Confirmed by GENERATED REPORT, COMPUTER ([id number]), associate entertainment editor Farzaneh Garcia ([id number]) on 01/17/2024 11:47:25 PM RADIOLOGY RESULTS 01/17/2024 3:35 PM CDT 01/17/2024 11:47 PM CDT Omero Boyd MD ECG ORDERABLES RADIOLOGY RESULTS documented in this encounter Visit Diagnoses Diagnosis Anxiety- Primary Anxiety state, unspecified Anxiety Anxiety state, unspecified Psychosis, unspecified psychosis type (H) Other insomnia Psychosis, unspecified psychosis type (H) Hypokalemia Hypopotassemia Adjustment disorder with anxious mood Adjustment disorder with anxiety documented in this encounter Administered Medications Inactive Administered Medications - up to 3 most recent administrations Medication Order MAR Action Action Date Dose Rate Site acetaminophen (TYLENOL) tablet 650 mg 650 mg, Oral, EVERY 4 HOURS PRN, mild pain, fever, Starting on Mon01/17/24 at 1852, Use first for mild pain if ordered with ibuprofen. Recommend alternating ibuprofen (if ordered) with acetaminophen. Maximum acetaminophen dose from all sources = 75 mg/kg/day not to exceed 4 grams/day. $Given 01/17/2024 7:11 PM CDT 650 mg amLODIPine (NORVASC) tablet 10 mg 10 mg, Oral, DAILY, First dose on Mon01/18/24 at 0800 $Given 01/18/2024 8:52 AM CDT 10 mg hydrOXYzine HCl (ATARAX) tablet 50 mg 50 mg, Oral, EVERY 6 HOURS PRN, anxiety, Starting on Mon01/17/24 at 1852 $Given 01/18/2024 9:25 AM CDT 50 mg $Given 01/17/2024 10:13 PM CDT 50 mg ibuprofen (ADVIL/MOTRIN) tablet 600 mg 600 mg, Oral, EVERY 6 HOURS PRN, mild pain, fever, Starting on Mon01/17/24 at 1852, Use second for mild pain if ordered with acetaminophen. Recommend alternating acetaminophen (if ordered) with ibuprofen. Give with food. ketorolac (TORADOL) injection 15 mg 15 mg, Intravenous, ONCE, On Mon01/17/24 at 1535, For 1 dose, Do not give within 6 hours of Ibuprofen. Can cause pain on injection. If ordered intravenously (IV) : administer through a running maintenance fluid over 1 minute followed by a flush. If patient complains of pain on injection, may dilute 15-30 mg in 5 mL and push over 1 to 2 minutes. $Given 01/17/2024 3:45 PM CDT 15 mg lisinopril-hydrochlorothiazide (ZESTORETIC) 20-25 MG per tablet 2 tablet 2 tablet, Oral, DAILY, First dose on Mon01/18/24 at 0800 $Given 01/18/2024 8:52 AM CDT 2 tablets melatonin tablet 3 mg 3 mg, Oral, AT BEDTIME PRN, sleep, insomnia, Starting on Mon01/17/24 at 1852, Offer first for sleep. $Given 01/17/2024 10:13 PM CDT 3 mg OLANZapine (zyPREXA) tablet 15 mg 15 mg, Oral, AT BEDTIME, First dose on Mon01/17/24 at 2000, Combined IM and PO doses may significantly increase the risk of orthostatic hypotension at 30 mg per day or higher. $Given 01/17/2024 7:11 PM CDT 15 mg potassium chloride misa ER (KLOR-CON M20) CR tablet 40 mEq 40 mEq, Oral, ONCE, On Mon01/17/24 at 1625, For 1 dose, DO NOT CRUSH $Given 01/17/2024 5:25 PM CDT 40 mEq sodium chloride 0.9% BOLUS 1,000 mL Intravenous, 1,000 mL, ONCE, On Mon01/17/24 at 1535, For 1 dose $New Bag 01/17/2024 3:46 PM CDT 1,000 mLs temazepam (RESTORIL) capsule 30 mg 30 mg, Oral, ONCE, On Mon01/18/24 at 0400, For 1 dose $Given 01/18/2024 4:20 AM CDT 30 mg traZODone (DESYREL) tablet 100 mg 100 mg, Oral, ONCE, On Mon01/18/24 at 0035, For 1 dose $Given 01/18/2024 1:35 AM CDT 100 mg traZODone (DESYREL) tablet 50 mg 50 mg, Oral, AT BEDTIME PRN, sleep, melatonin augmentation or failure, Starting on Mon01/17/24 at 1852, Offer if unable to sleep 30 minutes after melatonin administration. $Given 01/17/2024 8:28 PM CDT 50 mg documented in this encounter Active and Recently Administered Medications Times are shown in CDT. Scheduled Medication Order 01/16/2024 01/17/2024 01/18/2024 amLODIPine (NORVASC) tablet 10 mg 10 mg, Oral, DAILY, First dose on Mon01/18/24 at 0800 0852 ($Given - Provider: Elena Lyon RN) ketorolac (TORADOL) injection 15 mg (COMPLETED) 15 mg, Intravenous, ONCE, On Mon01/17/24 at 1535, For 1 dose, Do not give within 6 hours of Ibuprofen. Can cause pain on injection. If ordered intravenously (IV) : administer through a running maintenance fluid over 1 minute followed by a flush. If patient complains of pain on injection, may dilute 15-30 mg in 5 mL and push over 1 to 2 minutes. 1540 ($Given - Provider: Teddy Garcia RN) lisinopril-hydrochlorothiaz raleigh (ZESTORETIC) 20-25 MG per tablet 2 tablet 2 tablet, Oral, DAILY, First dose on Mon01/18/24 at 0800 0852 ($Given - Provider: Elena Lyon RN) OLANZapine (zyPREXA) tablet 15 mg 15 mg, Oral, AT BEDTIME, First dose on Mon01/17/24 at 2000, Combined IM and PO doses may significantly increase the risk of orthostatic hypotension at 30 mg per day or higher. 191 ($Given - Provider: Lore Amin RN) potassium chloride misa ER (KLOR-CON M20) CR tablet 40 mEq (COMPLETED) 40 mEq, Oral, ONCE, On Mon01/17/24 at 1625, For 1 dose, DO NOT CRUSH 1725 ($Given - Provider: Teddy Garcia RN) sodium chloride 0.9% BOLUS 1,000 mL (COMPLETED) Intravenous, 1,000 mL, ONCE, On Mon01/17/24 at 1535, For 1 dose 1546 ($New Bag - Provider: Teddy Garcia, YOLIS)1722 (Stopped - Provider: Teddy Garcia RN) temazepam (RESTORIL) capsule 30 mg (COMPLETED) 30 mg, Oral, ONCE, On Sara 01/18/24 at 0400, For 1 dose 0420 ($Given - Provider: Kelvin Brooks RN) traZODone (DESYREL) tablet 100 mg (COMPLETED) 100 mg, Oral, ONCE, On Sara 01/18/24 at 0035, For 1 dose 0135 ($Given - Provider: Kelvin Brooks RN) PRN Medication Order 01/16/2024 01/17/2024 01/18/2024 acetaminophen (TYLENOL) tablet 650 mg 650 mg, Oral, EVERY 4 HOURS PRN, mild pain, fever, Starting on Mon01/17/24 at 1852, Use first for mild pain if ordered with ibuprofen. Recommend alternating ibuprofen (if ordered) with acetaminophen. Maximum acetaminophen dose from all sources = 75 mg/kg/day not to exceed 4 grams/day. 1910 ($Given - Provider: Lore Amin RN) hydrOXYzine HCl (ATARAX) tablet 50 mg 50 mg, Oral, EVERY 6 HOURS PRN, anxiety, Starting on Mon01/17/24 at 1852 2213 ($Given - Provider: Lore Amin RN) 0925 ($Given - Provider: Elena Lyon RN) ibuprofen (ADVIL/MOTRIN) tablet 600 mg 600 mg, Oral, EVERY 6 HOURS PRN, mild pain, fever, Starting on Mon01/17/24 at 1852, Use second for mild pain if ordered with acetaminophen. Recommend alternating acetaminophen (if ordered) with ibuprofen. Give with food. melatonin tablet 3 mg 3 mg, Oral, AT BEDTIME PRN, sleep, insomnia, Starting on Mon01/17/24 at 1852, Offer first for sleep. 2212 ($Given - Provider: Lore Amin, YOLIS) traZODone (DESYREL) tablet 50 mg 50 mg, Oral, AT BEDTIME PRN, sleep, melatonin augmentation or failure, Starting on Mon01/17/24 at 1852, Offer if unable to sleep 30 minutes after melatonin administration. 2027 ($Given - Provider: Lore Amin RN) documented in this encounter Care Teams Mobile Security Specialist Relationship Specialty Start Date End Date Valentin Muñoz MD [address] [place] [address] [place] [address] PCP - General Internal Medicine 10/08/10 Valentin Muñoz MD [address] [place] [address] [place] [address] Assigned PCP 10/03/16 documented as of this encounter
--- OUTSIDE RECORDS SUMMARY | 2024-03-09 10:51 | XMS_ITS | Encounter Summary ---
Author Organization [facility] Address [address] [place] [address] Care Team Providers Care Network Support Name Role Phone Valentin Muñoz MD Primary Care Provider [phone] Valentin Muñoz MD Unavailable [phone] Encounter Details Date Type Department Care Team (Late st Contact Info) Description 01/12/2024 Orders Only [facility] [address] [place] [address] Sarah Robles, LUIS INTERNATIONAL BANKER [facility] [address] [facility] [place]NOTE 2] [address] [place], [place] [id number] Acute paranoid reaction (H) (Primary Dx) Social History Tobacco Use [...] often do you attend chur ch or sabianism services? More than 4 times per year 04/04/2023 Do you belong to any clubs o r organizations such as uatsdin groups, unions, fraternal or athletic groups, or [...] Answer Date Recorded PHQ-2 Score 4 01/24/2024 [facility] Occupat ional Health - Occupational [...] Info) Description 04/01/2024 2:00 PM CDT Appointment [facility] [address] [place] [phone] Omero Pham MD [facility] [address] [place] [address] [address] [place] [address] 04/01/2024 2:40 PM CDT Office Visit [facility] [place] [address] [place] [phone] Omero Pham MD [facility] [address] [place] [address] [address] [place] [address] 04/09/2024 2:00 PM CDT Office Visit [facility] [address] [facility] [address] [place] [phone] Valentin Muñoz MD [address] [place] [address] Roro Acevedo, PA-C [address] [place], [place] [address] 06/18/2024 12:00 PM CDT Virtual Visit [facility] [place] [address] [place] [address] Josephine Krishnan PA-C [address] [place], [place] [address] documented as of this encounter Results * Lipid panel reflex to direct LDL [...] or equal to 220 mg/dL Sarah Robles APRN INTERNATIONAL BANKER LAB - BLOOD OR DERABLES U LABORATORY [facility] [place] [facility] [address] [facility], [address] [address] * (ABNORMAL) Glucose (01/30/2024 10:21 AM CDT) Glucose 109(H) 70 - 99 mg/dL 01/30/2024 8:09 PM CDT [facility] LABORATORY Patient Fasting > 8hrs? Yes 01/30/2024 8:09 PM CDT [facility] LABORATORY Blood BLOOD SPECIMEN / Unknown Venipuncture / Unknown 01/30/2024 10:21 AM CDT 01/30/2024 10:21 AM CDT [place] Whitney Rodlilia LUIS INTERNATIONAL BANKER LAB - BLOOD OR DERABLES Performing Organization Address City/[facility]/ZIP Co de Phone Number LABORATORY [facility] [place] [facility] [address] [facility], [address] [address] * (ABNORMAL) Hemoglobin A1c (01/30/2024 10:21 AM CDT) Hemoglobin A1C 5.9(H) 0.0 - 5.6 % 01/30/2024 10:28 AM CDT LABORATORY Comment: Normal <5.7% Prediabetes 5.7-6.4% ?? Diabetes 6.5% or higher Note: Adopted from ADA consensus guidelines. Blood BLOOD SPECIMEN / Unknown Venipuncture / Unknown 01/30/2024 10:21 AM CDT 01/30/2024 10:21 AM CDT Sarah Whitney Margaret SMITH INTERNATIONAL BANKER LAB - BLOOD OR DERABLES LABORATORY [facility] [place] [facility] [address] [facility] (no room number, 1st floor of clinic) [place] [address], [facility] documented in this encounter Visit Diagnoses Diagnosis Acute paranoid reaction (H)- Primary Acute paranoid reaction documented in this encounter Care Teams Network Support Relationship Specialty Start Date End Date Valentin Muñoz MD [address] [facility] [place] [address] PCP - General Internal Medicine 10/08/10 Valentin Muñoz MD [address] [facility] [place] [address] Assigned PCP 10/03/16 documented as of this encounter
--- OUTSIDE RECORDS SUMMARY | 2024-03-09 10:51 | XMS_ITS | Encounter Summary ---
Author Organization [facility] Address [address] [place] [address] Care Team Providers Care Textile Conservator Name Role Phone Valentin Muñoz MD Primary Care Provider Valentin Muñoz MD Unavailable [phone] Encounter Details Date Type Department Care Team (Latest Contact Info) Description 01/17/2024 Travel Social History Tobacco Use Types Packs/Day [...] 04/04/2023 How often do you attend [facility] or oriental orthodox services? More than 4 times per year 04/04/2023 Do you belong to any clubs o r organizations such as presybeterian groups, unions, fraternal or athletic groups, or [...] Answer Date Recorded PHQ-2 Score 0 01/20/2023 [facility] - Occupational Stress Questionnaire Answer Date [...] place to sleep or slept in a jail (including now)? No 04/04/2023 Adolescent Education Answer [...] Info) Description 04/01/2024 2:00 PM CDT Appointment [facility] [address] [place] [phone] Omero Pham MD [facility] [address] [place] [address] 04/01/2024 2:40 PM CDT Office Visit [facility] [place] [address] [place] [phone] Omero Pham MD [facility] [address] [place], [place] [address] 04/09/2024 2:00 PM CDT Office Visit [facility] [address] [place] [phone] Valentin Muñoz MD [address] [place] [address] [place] [phone] Roro Acevedo PA-C [address] [place], [place] [address] 06/18/2024 12:00 PM CDT Virtual Visit [facility] [place] [address] [place] [phone] Josephine Krishnan PA-C [address] [place], [place] [phone] documented as of this encounter Visit Diagnoses Not on filedocumented in this encounter Care Teams Textile Conservator Relationship Specialty Start Date End Date Valentin Muñoz MD [address] [place] [address] [place] [address] PCP - General Internal Medicine 10/08/10 Valentin Muñoz MD [address] [facility] [place] [address] Assigned PCP 10/03/16 documented as of this encounter
--- OUTSIDE RECORDS SUMMARY | 2024-03-09 10:51 | XMS_ITS | Encounter Summary ---
Author Organization [facility] Address [address] [place] [address] Care Team Providers Care Building Analyst/Supervisor Name Role Phone Valentin Muñoz MD Primary Care Provider [phone] Valentin Muñoz MD Unavailable [phone] Encounter Details Date Type Department Care Team (Late st Contact Info) Description 01/30/2024 10:30 AM CDT Lab [facility] [address] [place] [phone] Acute paranoid reaction (H) Social History Tobacco Use Types Packs/Day [...] often do you attend chur ch or bahai services? More than 4 times per year [...] Answer Date Recorded PHQ-2 Score 4 01/24/2024 [facility] Occupat ional Health - Occupational Stress [...] Info) Description 04/01/2024 2:00 PM CDT Appointment [facility] [address] [place] [address] Omero Pham MD [facility] [address] [place], [place] [address] 04/01/2024 2:40 PM CDT Office Visit [facility] [place] [address] [place] [phone] Omero Pham MD [facility] [address] [place] [address] 04/09/2024 2:00 PM CDT Office Visit [facility] [address] [place] [phone] Valentin Muñoz MD [address] [facility] [address] [place] [phone] Roro Acevedo PA-C [address] [place], [place] [phone] 06/18/2024 12:00 PM CDT Virtual Visit [facility] [place] [address] [place] [phone] Josephine Krishnan PA-C [address] [place] [phone] documented as of this encounter Procedures Procedure Name Priority Date/Time Associated Diagnosis Comments TSH WITH FREE T4 REFLEX Routine 01/30/2024 10:21 AM CDT Acute paranoid reaction (H) LIPID REFLEX TO DIRECT LDL PANEL Routine 01/30/2024 10:21 AM CDT Acute paranoid reaction (H) HEMOGLOBIN A1C Routine 01/30/2024 10:21 AM CDT Acute paranoid reaction (H) GLUCOSE Routine 01/30/2024 10:21 AM CDT Acute paranoid reaction (H) documented in this encounter Results * TSH with free T4 reflex (01/30/2024 10:21 AM CDT) TSH 1.43 0.30 - 4.20 uIU/mL 01/30/2024 8:09 PM CDT [facility] LABORATORY Blood BLOOD SPECIMEN / Unknown Venipuncture / Unknown 01/30/2024 10:21 AM CDT 01/30/2024 10:21 AM CDT Sarah Robles APRN RACKING TECHNICIAN LAB - BLOOD OR DERABLES UU LABORATORY [facility] [place] [facility] [address] [facility], [address] [phone] * Lipid panel reflex to [...] CNP LAB - BLOOD OR DERABLES LABORATORY [facility] [address] [facility], [address] [phone] * (ABNORMAL) Glucose (01/30/2024 10:21 AM CDT) Glucose 109(H) 70 - 99 mg/dL 01/30/2024 8:09 PM CDT [facility] LABORATORY Patient Fasting > 8hrs? Yes 01/30/2024 8:09 PM CDT [facility] LABORATORY Blood BLOOD SPECIMEN / Unknown Venipuncture / Unknown 01/30/2024 10:21 AM CDT 01/30/2024 10:21 AM CDT Sarah Robles APRN, CNP LAB - BLOOD OR DERABLES U LABORATORY [facility] [place] [facility] [address] [facility], [address] [place] [address], [facility] * (ABNORMAL) Hemoglobin A1c (01/30/2024 10:21 AM CDT) Hemoglobin A1C 5.9(H) 0.0 - 5.6 % 01/30/2024 10:28 AM CDT LABORATORY Comment: Normal <5.7% Prediabetes 5.7-6.4% ?? Diabetes 6.5% or higher Note: Adopted from ADA consensus guidelines. Blood BLOOD SPECIMEN / Unknown Venipuncture / Unknown 01/30/2024 10:21 AM CDT 01/30/2024 10:21 AM CDT Sarah Robles APRN RACKING TECHNICIAN LAB - BLOOD OR DERABLES LABORATORY [facility] [place] [facility] [address] [facility] Lab (no room number, 1st floor of clinic) [place] [address], [facility] documented in this encounter Visit Diagnoses Diagnosis Acute paranoid reaction (H) Acute paranoid reaction documented in this encounter Additional Health Concerns Assessment Noted Time PHQ-9 Depression Total Score: 24 024 11:07 AM CDT documented as of this encounter Care Teams Building Analyst/Supervisor Relationship Specialty Start Date End Date Valentin Muñoz MD [address] [place] [address] [place] [address] PCP - General Internal Medicine 10/08/10 Valentin Muñoz MD [address] [place] [address] [place] [address] Assigned PCP 10/03/16 documented as of this encounter
--- OUTSIDE RECORDS SUMMARY | 2024-03-09 10:51 | XMS_ITS | Encounter Summary ---
Author Organization [facility] Address [address] [place] [address] Care Team Providers Care Aquatic Biologist Name Role Phone Valentin Muñoz MD Primary Care Provider [phone] Valentin Muñoz MD Unavailable [phone] Reason for Visit * Reason Onset Date Comments Appointment 01/22/2024 Same Day Appointment 01/22/2024 Encounter Details Date Type Department Care Team (Late st Contact Info) Description 01/22/2024 Telephone [facility] Janelle [address] [place] [address] Drive [address] [place] [address] Valentin Muñoz MD [address] [place] [address] [place] [address] Appointment; Same Day Appointment Social History Tobacco Use Types Packs/Day Years [...] often do you attend chur ch or gnosticism services? More than 4 times per year [...] Date Recorded PHQ-2 Score 4 01/24/2024 [facility] of Occupat ional Health - Occupational Stress [...] encounter Miscellaneous Notes * Telephone Encounter - Jackie Rosas MA - 01/23/2024 10:44 AM CDT Called patient's mobile phone, patient's Tatyana answered stating he was not available. She stated she can schedule on his behalf. ED follow up was rescheduled to 01/24/2024. will communicate this to patient. Jackie Shukla MA 10:47 AM 01/23/2024 * Telephone Encounter - Valentin Muñoz MD - 01/23/2024 9:07 AM CDT OK for AGUSTIN * Telephone Encounter - Brandy Avelar - 01/22/2024 1:08 PM CDT Reason for Call: Appointment Request Patient requesting this type of appt: Anxiety- was at [facility] facility 2 x prior Requested provider: Valentin Muñoz Reason patient unable to be scheduled: Not within requested timeframe When does patient want to be seen/preferred time: Same day Comments: Pt open to any day and time Could we send this information to you in [facility] or would you prefer to receive a phone call?: Patient would prefer a phone call Okay to leave a detailed message?: Yes at Cell number on file: Telephone Information: Call taken on 01/22/2024 at 1:08 PM by Brandy Avelar documented in this encounter Plan of Treatment Upcoming Encounters Date Type Department Care Team (Late st Contact Info) Description 04/01/2024 2:00 PM CDT Appointment [facility] [address] [place] [address] Omero Pham MD [facility] [address] [place], [place] [phone] 04/01/2024 2:40 PM CDT Office Visit [facility] [place] [address] [place] [phone] Omero Pham MD [facility] [address] [place], [place] [address] 04/09/2024 2:00 PM CDT Office Visit [facility] [address] [place] [phone] Valentin Muñoz MD [address] [place] [address] [address] [place] [phone] Roro Acevedo PA-C [address] [place], [place] [address] 06/18/2024 12:00 PM CDT Virtual Visit [facility] [place] [address] [place] [address] Josephine Krishnan PA-C [address] [place], [place] [address] documented as of this encounter Visit Diagnoses Not on filedocumented in this encounter Care Teams Aquatic Biologist Relationship Specialty Start Date End Date Valentin Muñoz MD [address] [facility] [place] [address] PCP - General Internal Medicine 10/08/10 Valentin Muñoz MD [address] [facility] [place] [address] Assigned PCP 10/03/16 documented as of this encounter
--- OUTSIDE RECORDS SUMMARY | 2024-03-09 10:51 | XMS_ITS | Encounter Summary ---
Author Organization [place] Address [address] [place] [address] Care Team Providers Care Research Program Assistant Name Role Phone Valentin Muñoz MD Primary Care Provider Valentin Muñoz MD Unavailable Encounter Details Date Type Department Care Team (Latest Contact Info) Description 12/08/2023 Travel Social History Tobacco Use Types Packs/Day [...] week 04/04/2023 How often do you attend [facility] or church services? More than 4 times per year 04/04/2023 Do you belong to any clubs o r organizations such as orthodox groups, unions, fraternal or athletic groups, [...] Answer Date Recorded PHQ-2 Score 0 01/20/2023 [facility] - Occupational Stress Questionnaire Answer [...] place to sleep or slept in a longterm (including now)? No 04/04/2023 Adolescent Education Answer [...] Info) Description 04/01/2024 2:00 PM CDT Appointment [facility] [address] [place] [phone] Omero Pham MD [facility] [address] [place] [address] 04/01/2024 2:40 PM CDT Office Visit [facility] [place] [address] [place] [phone] Omero Pham [facility] [address] [place], [place] [address] 04/09/2024 2:00 PM CDT Office Visit [facility] [address] [place] [phone] Valentin Muñoz MD [address] [place] [address] [place] [phone] Roro Acevedo PA-C [address] [place], [place] [phone] 06/18/2024 12:00 PM CDT Virtual Visit [facility] [place] [address] [place] [phone] Josephine Krishnan PA-C [address] [place], [place] [phone] documented as of this encounter Visit Diagnoses Not on filedocumented in this encounter Care Teams Research Program Assistant Relationship Specialty Start Date End Date Valentin Muñoz MD [address] [place] [address] [place] [phone] PCP - General Internal Medicine 10/08/10 Valentin Muñoz MD [address] [facility] [place] [id number] Assigned PCP 10/03/16 documented as of this encounter
--- OUTSIDE RECORDS SUMMARY | 2024-03-09 10:51 | XMS_ITS | Encounter Summary ---
Author Organization [place] Address [address] [place] [address] Care Team Providers Care General Worker Name Role Phone Valentin Muñoz MD Primary Care Provider [phone] Valentin Muñoz MD Unavailable [phone] Reason for Visit * Reason Onset Date Comments MH/CD Inpatient 02/01/2024 Encounter Details Date Type Department Care Team ([facility] st Contact Info) Description 02/01/2024 Telephone [facility] Intake [address] [place] [phone] Generic, Behavioral Intake, MD MH/CD Inpatient Social [...] often do you attend chur ch or orthodox services? More than 4 times per year 04/04/2023 Do you belong to any clubs o r organizations such as islam groups, unions, fraternal or athletic groups, or [...] 01/24/2024 [facility] - Occupational Stress Questionnaire Answer [...] to sleep or slept in a senior care (including now)? No 04/04/2023 Adolescent Education Answer Date Record ed Getting School Help Needed Not on file 06/02 Sex and Gender Information Value Date Recorded Sex Assigned at Not on file Gender Identity Not on file Sexual Orientation Not on file documented as of this encounter Miscellaneous Notes * Telephone Encounter - Tonja Sams - 02/01/2024 1:32 AM CDT R: PAM Access Inpatient Bed Call Log 01/31/2024 11:24 PM Intake has called facilities that have not updated their bed status within the last 12 hours.?? ADULTS: *[facility] -- [facility]: @ cap per website. [place] -- [facility]: @ Posting 16 beds. [place] -- [place]: @ Cap per website. [place] -- [facility]: @ Posting 1 bed. - 11:29 PM Per Tl, they are able to review very low acuity pt (SI, depression, or anxiety; no psychosis) - Declined due to needing a medical bed. [place] -- [facility]: @ Cap per website. [facility] -- [facility]: @ cap per website. [place] -- [facility] beds @ Cap per website. Ages 18-28, Voluntary only, COVID test req'd, NO aggression, physical or sexual assault, violence hx or drug abuse, or psychosis [place] -- [facility]: @ Cap per website. [place] -- [facility]: @ cap per website. [place] -- [facility]: @ Posting 1 bed. Pt remains on waitlist pending appropriate placement availability. documented in this encounter Plan of Treatment Upcoming Encounters Date Type Department Care Team (Late st Contact Info) Description 04/01/2024 2:00 PM CDT Appointment [facility] [address] [place] [phone] Omero Pham MD [facility] [address] [place] [address] 04/01/2024 2:40 PM CDT Office Visit [facility] [place] [address] [place] [phone] Omero Pham MD [facility] [address] [place] [address] 04/09/2024 2:00 PM CDT Office Visit [facility] [address] [place] [phone] Valentin Muñoz MD [address] [place] [address] [place] [phone] Roro Acevedo PAMickie [address] [place], [place] [phone] 06/18/2024 12:00 PM CDT Virtual Visit [facility] [place] [address] [place] [phone] Josephine Krishnan PA-C [address] [place] [phone] documented as of this encounter Visit Diagnoses Not on filedocumented in this encounter Additional Health Concerns Assessment Noted Time PHQ-9 Depression Total Score: 24 024 11:07 AM CDT documented as of this encounter Care Teams General Worker Relationship Specialty Start Date End Date Valentin Muñoz MD [address] [place] [address] [place] [phone] PCP - General Internal Medicine 10/08/10 Valentin Muñoz MD [address] [place] [address] [place] [id number] Assigned PCP 10/03/16 documented as of this encounter
--- OUTSIDE RECORDS SUMMARY | 2024-03-09 10:51 | XMS_ITS | Encounter Summary ---
Author Organization [facility] Address [address] [place] [id number] Care Team Providers Care Brick Handler Name Role Phone Valentin Muñoz MD Primary Care Provider [phone] Valentin Muñoz MD Unavailable [phone] Reason for Visit * Reason Comments Psychiatric Evaluation Insomnia * Auth/Cert (Routine) Specialty Diagnoses / Procedures Referred By Jazzy t Referred To Contact EMERGENCY MEDICINE Diagnoses Paranoia (H) Insomnia due to other mental disorder Psychosis, unspecified psychosis type (H) Anxiety Emergency Dept [address] [place] [address] Referral ID Status Reason Start Date Expiration Date Visits Re quested Visits Authorized [id number] 1 1 Encounter Details Date Type Department Care Team (Late st Contact Info) Description 12/07/2023 9:28 AM CDT - 12/08/2023 1:35 AM T [facility] Emergency [facility] [address] [place] [address] Denver Summers MD [facility] [address] [place] [address] Paranoia (H); Insomnia due to other mental disorder; Psychosis, unspecified psychosis type (H); Anxiety Discharge Disposition: Home or Self Care Social [...] week 04/04/2023 How often do you attend [facility] or evangelical services? More than 4 times per year 04/04/2023 Do you belong to any clubs o r organizations such as methodist groups, unions, fraternal or athletic groups, or [...] Answer Date Recorded PHQ-2 Score 0 01/20/2023 [facility] - Occupational Stress Questionnaire Answer Date [...] the money to buy more. Never true 08/15/20 23 Within the past 12 months, t [...] Sign Reading Time Taken Comments Blood Pressure 168/115 12/07/2023 10:37 AM CDT Pulse 86 12/07/2023 10:37 AM CDT Temperature 36.9 ??C (98.4 ??F) 12/07/2023 1 0:37 AM CDT Respiratory Rate 18 12/07/2023 10:3 7 AM CDT Oxygen Saturation 99% 12/07/2023 10: 37 AM CDT Inhaled Oxygen Concentration - - Weight 189.3 kg (417 lb 6.4 oz) 024 10:37 AM CDT Height 185.4 cm (6' 1) 12/07/2023 10:3 7 AM CDT Body Mass Index 55.07 12/07/2023 10:37 AM CDT documented in this encounter Discharge Instructions * Discharge Instructions* Dulce Maria Lund, [facility] - 12/07/2023 12:41 PM CDT Images from the original note were not included. Date: 12/11/2023 Time: 9:00 am - 10:00 am Provider: Sarah Robles MS, CNP,CHEN,RN Location: [facility], [address], [address], [place] [address] Type: Medication Mgmt - Initial (In-Person) Scheduling Instructions [email or web address] Interpreters must be covered by insurance. New appts must be emailed . Patient Instructions [email or web address] Mental health recommendations Please follow-up with your outpatient team about your visit today. 2. One of our care coordinators will reach out to you after your discharge. If you have any questions about additional resources please call our coordinators at # [phone] 3. Please use aftercare plan and already established coping skills and safety planning as needed. 4. Please call 911 and/or return to the emergency department if her symptoms worsen or your safety becomes compromised. Aftercare Plan If I am feeling unsafe or I am in a crisis, I will: Contact my established care providers Call the National Suicide Prevention Lifeline: 319.245.3356 Go to the nearest emergency room Call 911 Your [facility] has a mental health crisis team you can call 13/03: [facility], Things I am able to do on my own to cope or help me feel better: -Practice square breathing when I begin to feel anxious - in breath through the nose for the count of 4 and the first line on the square. Out breath through the mouth for the count of 4 for the second line of the square. Repeat to complete the square. Repeat the square as many times as needed. Things that I am able to do with others to cope or help me feel better: -Use community resources, including hotline numbers, [facility] crisis and support meetings Things I can use or do for distraction: -Distraction skills of: going for walks, watching TV, spending time outside, calling a friend or family member -Download a meditation barbie and spend 15-20 minutes per day mediating/relaxing. Some apps to download include: Calm, Headspace and Insight Timer. All 3 of these apps have free version Changes I can make to support my mental health and wellness: -Attend scheduled mental health therapy and psychiatric appointments and follow all recommendations -Maintain a daily schedule/routine -Practice deep breathing skills -Abstain from all mood altering chemicals not currently prescribed to me People in my life that I can ask for help: National [place] on Mental Illness (JOSE) 990.785.7765 or 1.888.JOSE.HELPS Other things that are important when I???m in crisis: -Commit to 30 minutes of self care daily - this can be as simple as taking a shower, going for a walk, cooking a meal, read, writing, etc Crisis Lines Crisis Text Line Text 452490 You will be connected with a trained live crisis counselor to provide support. Por espanol, texto MICHAEL a 585433 o texto a 442-AYUDAME en WhatsApp National Hope Line 1.800.SUICIDE [9117762] Community Resources Fast Tracker Linking people to mental health and substance use disorder resources Responsive Energy [email or web address] [place] [facility] Warm Line Peer to peer support Monday thru Monday, 12 pm to 10 pm [phone] [place] [address] [place] on Mental Illness (JOSE) 587.019.2540 or 1.888.JOSE.HELPS Mental Health Apps My3 [email or web address]/ VirtualHopeBox [email or web address] Additional Information Today you were seen by a licensed mental health professional through Triage and Transition services, [facility] ([facility]) for a crisis assessment in the Emergency Department at [facility]. It is recommended that you follow up with your established providers (psychiatrist, mental health therapist, and/or primary care doctor - as relevant) as soon as possible. Coordinators from [facility] will be calling you in the next 24-48 hours to ensure that you have the resources you need. You can also contact [facility] coordinators directly at [phone]. You may have been scheduled for or offered an appointment with a mental health provider. [facility] maintains an extensive network of licensed [facility] providers to connect patients with the [...] ADDITIONAL REFILLS) 90 tablet 3 02/23/2023 02/22/2024 lisinopril-hydrochloro thiazide (ZESTORETIC) 20-25 MG tabletIndications:Esse ntial hypertension TAKE 2 TABLETS DAILY 180 tablet 3 02/27/2023 02/22/2024 OLANZapine (ZYPREXA) 10 MG tablet Take 1 tablet (10 mg) by mouth at bedtime 14 tablet 12/08/2023 02/19/2024 documented as of this encounter Progress Notes * Willi Stoner RN - 12/08/2023 1:34 PM CDT Patient agrees to discharge plan. Discharge instructions reviewed with patient including follow-up care plan. Medications: dispense from [facility] sent home with patient after reviewing safety plan and outpatient resources. Denies SI and HI. All belongings that were brought into the hospital have been returned to patient. Escorted off the unit at six accompanied by [facility] staff. Discharged to home via cab. * Javy Collazo LICSW - 12/08/2023 11:04 AM CDT Triage & Transition Services, Extended Care Client Name: Ant Olson Post Date: December 08, 2023 Patient was seen Mode of Assessment: Service Type: attended group session Session Start Time: 1039 Session End Time: 1054 Session Length: 15 Site Location: [facility] EMERGENCY DEPT EMP07 Total Number ofAttendees: 2 Topic: (P) (Goals for the day; positive and challenging experience from the past 24 hours; Three items to have on a deserted island) Response: (P) cooperative with task, expressed understanding of topic, organized. Patient's goals for the day are to discharge home and make sure /child are okay. He shares the positive experience in the past 24 hours is helping two peers on the unit and the challenging experience was cycling between stress/triggers and exhaustion. The three items patient would have if trapped on a desert island are raincoat, music, and knife. ANGELINA Barrios, STRAP MACHINE OPERATOR AUTOMATIC Licensed Mental Health Professional (LMHP) [place], Associated attestation - Mar Bella LICSW - 12/12/2023 9:58 AM CDT Service performed and documented by psychotherapist trainee. Note reviewed and clinical supervision by ANGELINA Hyatt LICSW December 12, 2023 * Walter Lainez RN - 12/08/2023 5:45 AM CDT Patient slept well overnight. Woke around 0230 with disorganized thoughts, took PRN Zyprexa and went back to sleep. Denied auditory/visual hallucinations when asked. * Lopez Hale [facility] - 12/08/2023 1:35 AM CDT Triage and Transition Services Extended Care Reassessment Patient: Ant goes by Ant, uses he/him pronouns Date of Service: December 08, 2023 Site of Service: [facility] EM[facility]PT Patient was seen yes Mode of Assessment: In person Reason for Reassessment: other (see comment) (anticipated discharge) History of Patient's Original Emergency Room Encounter: Pt presents with an anxious and somewhat irritable affect. Pts mood is congruent with this presentation. Pt is oriented x4. Pt was cooperative during assessment, but answered most of questions with I am fine. Pt does not have a significant ps ychiatric hx. Pt has no hx of past IP MH admissions. Pts currently has no outpatient providers. Pt currently presents to the ED due to concerns for psychosis sx. Per collateral Pt has been more paranoid and has not been sleeping. Pt has not been reality based. Per collateral Pt has been showing sx o f paranoia and increased anxiety since the fall but in the last few days it has been significantly worse. Pt has been taking showers and baths repeatedly. 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 Pt also went to another coaches home and was not making sense and demanding for his phone. Pt thinks that his house is being monitored and bugged. The other day Pt called the vehicle operator technician and had them come to the house and was asking about ways they could help with finding out if the house was bugged. During assessment Pt was disorganized and it responded with most questions with vague answers, responding I am fine, I think I figured everything out. Pt endorsed concerns with his house being bugged and endorsed concerns about filling a lawsuit. Pt did not endorse any SI/SIB/HI or AH/VH. Pt did not endorse any recent substance use. Pt did present with some delusional and paranoid ideations. Pt doesappear to have limited insight into his current mental health sx but endorsed willingness to engagein outpatient supports. Pt was not receptive to staying in the ED for further observation. Current Patient Presentation: Pt presents as calm, cooperative, and engaged with Immigration Coordinator. Presentation Summary: Pt was willing to met with Pt for therapeutic check-in. When prompted by Immigration Coordinator, Pt reports he has been concerned about his job keeping tabs on him due to his actions from his softball incident. Pt reports people have been keeping an eye on him since then and believes people are out to get him. 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 Pt denies any SI, HI, AH/VH, yetcontinues to present as experiencing delusional thoughts, yet seem to be more grounded in reality and working with resources in the community. Pt and Immigration Coordinator were able to discuss coping skills and Pt completed an aftercare/safety plan. Pt reports wanting to meet with the provider to discuss additional medications to assist with sleep. Changes Observed Since Initial Assessment: decrease in presenting symptoms Therapeutic Interventions Provided: Engaged in safety planning Current Symptoms: anxious anxious (delusion thoughts) Mental Status Exam Affect: Appropriate Appearance: Appropriate Attention Span/Concentration: Attentive Eye Contact: Engaged Fund of Knowledge: Appropriate Language /Speech Content: Fluent Language /Speech Volume: Normal Language /Speech Rate/Productions: Normal Recent Memory: Variable Remote Memory: Variable Mood: Anxious Orientation to Person: Yes Orientation to Place: Yes Orientation to Time of Day: Yes Orientation to Date: Yes Situation (Do they understand why they are here?): Yes Psychomotor Behavior: Normal Thought Content: Delusions (Believes work and softball league are in communication with each other.) Thought Form: Intact, Other (please comment) (does identify concern community members are keeping tabs on him after th softball incident.) Treatment Objective(s) Addressed: Patient Response to Interventions: acceptance expressed, verbalizes understanding Progress Towards Goals: Patient Reports Symptoms Are: improving Patient Progress Toward Goals: is making progress Comment: Pt denies any SI, HI, AH/VH, yet continues to present as experiencing delusional thoughts,yet seem to be more grounded in reality and working with resources in the community. Next Step to Work Toward Discharge: patient ability to engage in safety planning Ability to Engage Comment: Have Pt complete an aftercare/safety plan and schedule with outpatient resources. Case Management: Case Management Included: collaborating with patient's support system Details on Collaborating with Patient's Support System: Discuss with care team at [facility] Summary of Interaction: Discussed desire for medication for sleep with attending psychiatric provider and informed Pt's RN desire for discharge. C-SSRS Since Last Contact: 1. Wish to be (Since Last Contact): No 2. Non-Specific Active Suicidal Thoughts (Since Last Contact): No Actual Attempt (Since Last Contact): No Has subject engaged in non-suicidal self-injurious behavior? (Since Last Contact): No Interrupted Attempts (Since Last Contact): No Aborted or Self-Interrupted Attempt (Since Last Contact): No Preparatory Acts or Behavior (Since Last Contact): No Suicide (Since Last Contact): No Calculated C-SSRS Risk Score (Since Last Contact): No Risk Indicated Plan: Final Disposition / Recommended Care Path: discharge Plan for Care reviewed with assigned Medical Provider: yes Plan for Care Team Review: provider, RN Comments: Alba Barnett Patient and/or validated legal guardian concurs: yes Clinical Substantiation: When prompted by Immigration Coordinator, Pt reports he has been concerned about his job keeping tabs on him due to his actions from his softball incident. Pt reports people have been keeping an eye on him since thenand believes people are out to get him. 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 Pt denies any SI, HI, AH/VH, yet continues to present as experiencing delusional thoughts, yet seem to be moregrounded in reality and working with resources in the community. Pt and Immigration Coordinator were able to discusscoping skills and Pt completed an aftercare/safety plan. Pt reports wanting to meet with the provider to discuss additional medications to assist with sleep. At this time it does appear that Pt would benefit from further observation and psychiatric stabilization via medication management and ED level therapeutic interventions, due to continued presentation of experiencing delusions. Pt continues to request to discharge, and Immigration Coordinator and attending psychiatric provider have determined Pt does not meet criteria for an involuntary hold. Close follow-up with newly scheduled psychiatrist was recommended. Pt is to return to the ED if anyurgent or potentially life-threatening concerns arise. At the time of discharge, Pt's acute suiciderisk was determined to be low due to the following factors: reduction in the intensity of mood/anxiety symptoms that preceded the admission, denial of suicidal thoughts, denies feeling helpless or hopeless, not currently under the influence of alcohol or illicit substances, denies experiencing command hallucinations. Protective factors include: social support, displays resiliency, future focused thinking, and safe/stable housing. Legal Status: Legal Status at Admission: Voluntary/Patient has signed consent for treatment Session Status: Time session started: 847 Time session ended: 905 Session Duration (minutes): 18 minutes Session Number: 1 Anticipated number of sessions or this episode of care: 1 Session Start Time: 847 Session Stop Time: 905 CPT codes: 05261 - Psychotherapy (with patient) - 30 (16-37*) min Time Spent: 18 minutes CPT code(s) utilized: 53038 - Psychotherapy (with patient) - 30 (16-37*) min Diagnosis: Patient Active Problem List Diagnosis Hypertension Morbid obesity (H) FAITH (obstructive sleep apnea) Psychosis, unspecified psychosis type (H) Anxiety Paranoia (H) Insomnia due to other mental disorder Primary Problem This Admission: Active Hospital Problems Psychosis, unspecified psychosis type (H) Anxiety Paranoia (H) Insomnia due to other mental disorder ALANA Wang Licensed Mental Health Professional (LMHP), [facility] [phone] * Dulce Maria Lund LPCC - 12/07/2023 3:05 PM CDT Ant Olson Post December 07, 2023 Plan of Care Hand-off Note Patient Care Path: observation Plan for Care: Pt is a 38 y/o male without a significant psychiatric hx. Initially com writer recommended observation but Pt was not receptive to this and per MD it appears that Pt does not meet criteria for a 72 hour hold. Pt was able verbally safety plan with com writer and endorsed that he would follow up with an outpatient psychiatric provider. At this time IP MH admission does not appear to be the most therapeutically beneficial intervention/ level of care for Pt. Pt appears to be able to use and motivated to engage in supportive mental health/ community resources. Addendum: After psychiatry consultation Pt was receptive to the recommendation of observation and Pt will remain on [facility] for further medicationmanagement and ED level therapeutic interventions. Identified Goals and Safety Issues: decreased agitation and psychosis sx. Overview: Pt presented to the ED due to increased psychosis sx and paranoid delusions. Per collateral Pt has not slept in 3 days and has been increasingly disorganized. Pts called a crisis line today and they recommended for Pt to be seen in the ED for further evaluation.. Legal Status: Legal Status at Admission: Voluntary/Patient has signed consent for treatment Psychiatry Consult: Desmond Stevenson MD , RN regarding plan of care. 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 On intake patient was disorganized, requiring step by step directions to change out of his clothes and into gown for clothing check. Appears to be thought blocking. He was noted to appear internally preoccupied and his answers to questions were delayed. He tells me that he is being tortured by someone sending electric magnetic pulses that are affecting his internet connection. He also states he believes his house is bugged. 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 He states I know this sounds delusional but it's not. He denies SI/HI. States multiple times I will not retaliate. Affect is tense. He is restless. Mood is anxious. PRN Zyprexa offered and accepted. * Angeline Sherwood RN - 12/07/2023 11:00 AM CDT 38 year old male with no history of MH dx. received from ED due to erratic behavior. Reports being tortured by someone sending electric magnetic pulses. denies SI/HI. Nursing and risk assessments completed. Assessments reviewed with LMHP and physician. Admission information reviewed with patient. Patient given a tour of [facility] and instructions on using the facility. Questions regarding [facility] addressed. Pt safety search completed. documented in this encounter Consult Notes * Dulce Maria Lund, [facility] - 12/07/2023 12:10 PM CDTAssociated Order(s): DIAGNOSTIC EVALUATION CENTER (DEC) ASSESSMENT ORDER Diagnostic Evaluation Consultation Crisis Assessment Patient Name: Ant Beckford Age: [age] year old Legal Sex: male Gender Identity: male Pronouns: he/him Race: White Ethnicity: Not or Language: Puerto Rican Patient was assessed: In person Patient location: [facility] EMERG[facility] DEPT EMP07 Referral Data and Chief Complaint Ant Beckford presents to the ED with family/friends. Patient is presenting to the ED for the following concerns: Paranoia, Memory concerns. Factors that make the mental health crisis life threatening or complex are: Pt presented to the ED due to increased psychosis sx and paranoid delusions. Per collateral Pt has not slept in 3 days and has been increasingly disorganized. Pts called a crisi s line today and they recommended for Pt to be seen in the ED for further evaluation.. Informed Consent and Assessment [...] available. : done Patient response to interventions: needs reinforcement Coping skills were attempted to reduce the crisis: Pt was able to verbally safety plan with com writer,Pt has been somewaht receptive to ED interventions. History of the Crisis Pt presents with an anxious and somewhat irritable affect. Pts mood is congruent with this presentation. Pt is oriented x4. Pt was cooperative during assessment, but answered most of questions with I am fine. Pt does not have a significant psychiatric hx. Pt has no hx of past IP MH admissions. Pts currently has no outpatient providers. Pt currently presents to the ED due to concerns for psychosis sx. Per collateral Pt has been more paranoid and has not been sleeping. Pt has not been reality based. Per collateral Pt has been showing sx of paranoia and increased anxiety since the fall but in the last few days it has been significantly worse. Pt has been taking showers and baths repeatedly. 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 Pt also went to another coaches home and was not making sense and demanding for his phone. Pt thinks that his house is being monitored and bugged. The other day Pt called the vehicle operator technician and had them come to the house and was asking about ways they could help with finding out if the house was bugged. During assessment Pt was disorganized and it responded with most questions with vague answers, responding I am fine, I think I figured everything out. Pt endorsed concerns with his house being bugged and endorsed concerns about filling a lawsuit. Pt did not e ndorse any SI/SIB/HI or AH/VH. Pt did not endorse any recent substance use. Pt did present with some delusional and paranoid ideations. Pt does appear to have limited insight into his current mental health sx but endorsed willingness to engage in outpatient supports. Pt was not receptive to stayingin the ED for further observation. Brief Psychosocial History Family: , Children no Support System: Employment Status: employed full-time Source of Income: salary/wages Financial Environmental Concerns: none Current Hobbies: music, television/movies/videos, group/social activities Barriers in Personal Life: mental health concerns Significant Clinical History Current Anxiety Symptoms: anxious Current Depression/Trauma: difficulty concentrating, irritable Current Somatic Symptoms: anxious Current Psychosis/Thought Disturbance: forgetful, distractability, displaces blame Current Eating Symptoms: (no concerns) Chemical Use History: Alcohol: None Benzodiazepines: None Opiates: None Cocaine: None Marijuana: None Other Use: None Past diagnosis: No known past diagnosis Family history: Schizophrenia Past treatment: No known formal treatment attempts Details of most recent treatment: Pt currently has no outpatiet providers Other relevant history: Collateral Information Is there collateral information: Yes Collateral information name, relationship, phone number: Tatyana (Spouse) What happened today: Immigration Coordinator spoke with Pts . She endorsed that Pt has not been well or making any sense. Pt has been really paranoid and thinks the house is being monitored. Pt was really paranoid today has not slept for 3 days and Pts called a crisis line and they encouraged Pt to come into the ED for further evaluation. What is different about patient's functioning: Pts endorsed that she started to notice some odd behavior in the fall and way worse in the last week. Pt has not slept in 3 days. Pt thinks the house is bugged. 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 Pt doesn't seem to understand the severity of this. Pt has been taking baths repeatedly. There hasn't been changes in Pts appetite or self care. Pt has not endorsed SI or HI. Pt did yell at his but has not been physically aggressive. Concern about alcohol/drug use: no What do you think the patient needs: mental health tx, Pt has a family hx of schizophrenia. Has patient made comments about wanting to kill themselves/others: no If d/c is recommended, can they take part in safety/aftercare planning: yes Additional collateral information: n/a Risk Assessment Damar Suicide Severity Rating Scale Full Clinical Version: Suicidal Ideation Q1 Wish to be (Lifetime): No Q2 Non-Specific Active Suicidal Thoughts (Lifetime): No Q6 Suicide Behavior (Lifetime): no Suicidal Behavior (Lifetime) Actual Attempt (Lifetime): No Has subject engaged in non-suicidal self-injurious behavior? (Lifetime): No Interrupted Attempts (Lifetime): No Aborted or Self-Interrupted Attempt (Lifetime): No Preparatory Acts or Behavior (Lifetime): No Damar Suicide Severity Rating Scale Recent: Suicidal Ideation (Recent) Q1 Wished to be (Past Month): no Q2 Suicidal Thoughts (Past Month): no Level of Risk per Screen: no risks indicated Environmental or Psychosocial Events: work or task failure, impulsivity/recklessness, other life stressors, challenging interpersonal relationships Protective Factors: Protective Factors: strong batista to family unit, community support, or employment, lives in a responsibly safe and stable environment, help seeking Does the patient have thoughts of harming others? Feels Like Hurting Others: no Previous Attempt to Hurt Others: no Current presentation: Irritable, Confused Violence Threats in Past 6 Months: Pt has not endorsed any HI, or aggressive behavior Is the patient engaging in sexually inappropriate behavior?: no Duty to warn initiated: no Is the patient engaging in sexually inappropriate behavior? no Mental Status Exam Affect: Labile Appearance: Disheveled Attention Span/Concentration: Inattentive Eye Contact: Variable Fund of Knowledge: Delayed Language /Speech Content: Fluent Language /Speech Volume: Normal Language /Speech Rate/Productions: Minimally Responsive Recent Memory: Variable Remote Memory: Poor Mood: Anxious, Irritable Orientation to Person: Yes Orientation to Place: Yes Orientation to Time of Day: Yes Orientation to Date: Yes Situation (Do they understand why they are here?): No Psychomotor Behavior: Agitated Thought Content: Delusions, Paranoia Thought Form: Paranoia Medication Psychotropic medications: Medication Orders - Psychiatric (From admission, onward) Start Dose/Rate Route Frequency Ordered Stop 12/07/23 1059 OLANZapine (zyPREXA) injection 10 mg 10 mg Intramuscular DAILY PRN 12/07/23 1059 12/07/23 1059 OLANZapine zydis (zyPREXA) ODT tab 10 mg 10 mg Oral EVERY 6 HOURS PRN 12/07/23 1059 Current Care Team Patient Care Team: Valentin Muñoz MD as PCP - General (Internal Medicine) Valentin Muñoz MD as Assigned PCP Diagnosis Patient Active Problem List Diagnosis Hypertension Morbid obesity (H) FAITH (obstructive sleep apnea) Psychosis, unspecified psychosis type (H) Primary Problem This Admission Active Hospital Problems Psychosis, unspecified psychosis type (H) Clinical Summary and Substantiation of Recommendations Pt is a 38 y/o male without a significant psychiatric hx. Initially com writer recommended observation but Pt was not receptive to this and per MD it appears that Pt does not meet criteria for a 72 hour hold. Pt was able verbally safety plan with com writer and endorsed that he would follow up with an outpatient psychiatric provider. At this time IP MH admission does not appear to be the most therapeutically beneficial intervention/ level of care for Pt. Pt appears to be able to use and motivated to engage in supportive mental health/ community resources. Addendum: After psychiatry consultation Pt was receptive to the recommendation of observation and Pt will remain on [facility] for further medication management and ED level therapeutic interventions. Patient coping skills attempted to reduce the crisis: Pt was able to verbally safety plan with com writer, Pt has been somewaht receptive to ED interventions. Disposition Recommended disposition: Observation, Medication Management, Individual Therapy Reviewed case and recommendations with attending provider. Attending Name: Andkarlos Attending concurs with disposition: yes Patient and/or validated legal guardian concurs with disposition: yes Final disposition: discharge Legal status on admission: Voluntary/Patient has signed consent for treatment Assessment Details Total duration spent with the patient: 20 min CPT code(s) utilized: Non-Billable ALANA Irvin, Psychotherapist DEC - Triage & Transition Services Callback: [phone] documented in this encounter ED Notes * Alba Barnett APRN YARDER ENGINEER - 12/08/2023 1:02 PM CDT [facility] Unit - Psychiatric Observation Discharge Summary [facility] Emergency Department Discharge Date: 12/08/2023 Ant Beckford Age: [age] year old Date of : 1985 Brief HPI & Initial ED Course Chief Complaint Patient presents with Psychiatric Evaluation Insomnia HPI Ant Beckford is a 38 year old male with no known past psychiatric history who presents to the emergency department for evaluation of emerging psychosis with prominent paranoia. Documentation indicates feelings of paranoia were first noted in the kimberly of last year and have become more pronouncedover the past 1 to 2 weeks. Insomnia was also highlighted as being prominent over the past few days. There was no indication of substance usage. There were no overt safety concerns involving suicidalor homicidal thoughts. He was determined to be medically stable then [facility]. He is now approaching 27 hours in the emergency department. Upon initial evaluation at [facility], olanzapine was scheduled at bedtime further targeting paranoia and symptoms of psychosis. Patient was observed to be interacting with peers in the milieu and attending group. Pk was having a conservation with a peer when I initially approached and asked me to return in several minutes. He tells me that he slept well last night and would like to return home today. He believes olanzapine has been helpful and denies side effects. He denies suicidal and homicidal thoughts.He denies auditory and visual hallucinations. He recalls prior to coming to the ED he had additional work place stressors that came up which caused shoulder tension and anxiety. 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 This is stressful. He also recalls poor past interactions with his daughter's softball association and he is subsequently only allowed towatch her games from the parking lot. He reports that he trusts the softball team health care coach but nobody else. He lives with his and 11 year old daughter, he feels supported there. At times his yells and this is triggering for him but he can usually decompress listening to music. He is agreeable to a referral for therapy and psych med management and tells me he has found that groups have been helpful. Discussed the importance of continuing medication and following up with outpatient psychiatric supports for additional diagnostic clarity, he seems agreeable to this. Physical Examination BP: 125/88 Pulse: 94 Temp: 98.6 ??F (37 ??C) Resp: 18 Height: 185.4 cm (6' 1) Weight: (!) 189.3 kg (417 lb 6.4 oz) SpO2: 96 % Physical Exam General: Appears stated age. Neuro: Alert and fully oriented. Extremities appear to demonstrate normal strength on visual inspection. Integumentary/Skin: no rash visualized, normal color Psychiatric Examination Appearance: awake, alert, adequately groomed, appeared as age stated, and casually dressed Attitude: cooperative Eye Contact: good Mood: anxious Affect: intensity is blunted Speech: clear, coherent and normal prosody Psychomotor Behavior: no evidence of tardive dyskinesia, dystonia, or tics and intact station, gaitand muscle tone Thought Process: disorganized Associations: no loose associations Thought Content: no evidence of suicidal ideation or homicidal ideation, no auditory hallucinationspresent, no visual hallucinations present, and some suspected paranoia reported Insight: limited Judgement: fair Oriented to: time, person, and place Attention Span and Concentration: limited Recent and Remote Memory: fair Language: able to name/identify objects without impairment Fund of Knowledge: intact with awareness of current and past events Results Labs Ordered and Resulted from Time of ED Arrival to Time of ED Departure URINE DRUG SCREEN PANEL - Normal Result Value Amphetamines Urine Screen Negative Barbituates Urine Screen Negative Benzodiazepine Urine Screen Negative Cannabinoids Urine Screen Negative Cocaine Urine Screen Negative Fentanyl Qual Urine Screen Negative Opiates Urine Screen Negative PCP Urine Screen Negative COMPREHENSIVE METABOLIC PANEL TSH WITH FREE T4 REFLEX TREPONEMA ABS W REFLEX TO RPR AND TITER Observation Course The patient was found to [...] potentially life-threatening concerns. Discharge Diagnoses: Final diagnoses: Paranoia (H) Insomnia due to other mental disorder Psychosis, unspecified psychosis type (H) Anxiety Treatment Plan: -Begin Zyprexa 10 mg nightly targeting antipsychotic treatment -Given patient has no formal mental health history discussed the importance of ongoing follow-up for additional diagnostic clarity and to further rule out would any potential underlying medical causes. A CMP, CBC, TSH, and RPR have been ordered for tomorrow morning as part of that medical workup. Labs were ordered to assist with rule out causes including, pending collection. Discussed following up with primary care provider as patient is requesting to discharge prior to this being completed. Could also consider further -Urine drug screen was reviewed and negative for illicit substances -Referral to outpatient psychiatry and therapy provided -Patient requesting to discharge with outpatient supports,at time of assessment patient did not meet criteria to be placed under an involuntary hold. At the time of discharge, the patient's [...] or alcohol. Protective factors include: social supports, children, stable housing, employment I spent more than 31 minutes on discharge day activities. -- Alba Barnett APRN CNP [facility] EMERGENCY DEPT [facility] Unit Alba Barnett APRN CNP 12/08/23 1302 * Willi Stoner RN - 12/08/2023 9:05 AM CDT Pt is awake and observed in the milieu socializing with peers and carrying out some activity. He denies any SI/HI. Pt vital signs are stable and his affect is fair. Pt was medication compliant. * Bunny Redman RN - 12/07/2023 6:34 PM CDT Spoke with pt's who wanted an update on the pt. Pt's stated that she had just gotten of the phone with the pt and he was asking some bizarre things regarding his phone. Pt's stated sheis worried that he has been acting very bizarre and for the past 3 days he has not been kristina to sleep. She reports that he has been wandering to other peoples houses and making bizarre statements. 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 Pt's reports hat thee is no evidence of this and states that this is something that he is saying that has not happened. Pt 's is concerned that he may come home too soon and she isnot sure what she would be able to do for him. Pt's says she has been trying to ensure he is ok and notes he is unable to care for himself at this time. Pt's was made aware of the tx plan and encouraged the pt to stay on the unit to try the medication. * Bunny Redman RN - 12/07/2023 5:36 PM CDT Pt approached desk and ws asking about when he would see the provider again. Pt was explained that he galvan seen the provider to day and that he would be staying the nigh to see how the medications that he started would help . Pt realized that this was the case. 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 Pt states he is worried about the electronics an that he has been psychologically tortured by the electronics and is worried something is happening at his house. Pt needed to call his to inform her t hat no one should touch his company cell phone as it has all the information on it. Pt appear flat and his thoughts are disorganized and paranoid in nature. Pt was offered some PRN olanzapine to helpwith some of his anxiety but the pt declined a this moment. Nursing to continue to monitor. * Rene Triplett MD - 12/07/2023 3:00 PM CDT [facility] Unit - Initial Psychiatric Observation Note [facility] Emergency Department Observation Initiation Date: Dec 07, 2023 Ant Beckford Age: [age] year old Date of : 1985 History Chief Complaint Patient presents with Psychiatric Evaluation Insomnia HPI Ant Beckford is a 38 year old male with no known past psychiatric history who presents to the emergency department for evaluation of emerging psychosis with prominent paranoia. Documentation indicates feelings of paranoia were first noted in the kimberly of last year and have become more pronouncedover the past 1 to 2 weeks. Insomnia was also highlighted as being prominent over the past few days. There was no indication of substance usage. There were no overt safety concerns involving suicidalor homicidal thoughts. He was determined to be medically stable then transferred to the [facility] unitfor psychiatric assessment. He is now approaching 6 hours in the emergency department. Upon arrivalto the unit, he had received a dose of Zyprexa 10 mg and took a brief nap in a sensory room shortlyafterwards. On approach, the patient was noted to be sitting in his recliner and watching television. He accompanied me to the interview room and participated in the interview although his responses appeared to be slow and his presentation appeared complicated by moderate sedation. He explains thathe has been feeling paranoid over the past few weeks. He was not able to identify an exact timelineregarding his feelings of paranoia. He adds I guess I tend to be quick to feel paranoid and get delusional. He further adds I don't know if I am paranoid schizophrenic. He did not voluntarily divulges specific details regarding these paranoid delusions although documentation and [facility] did highlight these details. He confirms difficulty sleeping at night due to racing thoughts and feelings of paranoia. He denied suicidal and homicidal thoughts. He denied illicit substance usage. He denied auditory and visual hallucinations. He stated several times he would prefer to be at home, further adding that he has certain techniques to utilize to help lessen his anxiety and paranoia. Upon further questioning, he identified the ability to listen to music or spend time with his dogs. He reports no history of mental illness or prior psychiatric treatments. No history of suicide attempts. He is open to trying a medication to help alleviate the symptoms of concern identified above. At the end of our discussion, he was willing to spend the night on the unit to better monitor his presentation and response to medication. Past Medical History Past Medical History: Diagnosis Date Hypertension Obese FAITH (obstructive sleep apnea) 03/24/2022 Past Surgical History: Procedure Laterality Date ORTHOPEDIC SURGERY Left 2001 left foot surgery VASECTOMY Bilateral 12/14/2018 Procedure: Bilateral vasectomy; Surgeon: Mark Miller MD; Location: OR amLODIPine (NORVASC) 10 MG tablet lisinopril-hydrochlorothiazide (ZESTORETIC) 20-25 MG tablet Allergies Allergen Reactions Cephalexin Rash [...] other systems negative. Physical Examination BP: (!) 183/99 Pulse: 82 Temp: 98.3 ??F (36.8 ??C) Resp: 20 Height: 185.4 cm (6' 1) Weight: (!) 189.3 kg (417 lb 6.4 oz) SpO2: 98 % Physical Exam General: Appears stated age. Neuro: Alert and fully oriented. Extremities appear to demonstrate normal strength on visual inspection. Integumentary/Skin: no rash visualized, normal color Psychiatric Examination Appearance: awake, alert and adequately groomed Attitude: cooperative and guarded Eye Contact: fair Mood: anxious Affect: intensity is blunted Speech: clear, coherent Psychomotor Behavior: no evidence of tardive dyskinesia, dystonia, or tics Thought Process: disorganized, slightly slowed Associations: no loose associations Thought Content: no evidence of suicidal ideation or homicidal ideation and Paranoid delusions wereendorsed. There was no mention of ideas of reference, thought insertion, or thought extraction. Given his presentation, I could not confidently exclude the presence of hallucinations as he appeared distractible and slightly disorganized at times. There was no indication of suicidal and homicidal thoughts which the patient denied. Insight: partial Judgement: fair Oriented to: time, person, and place Attention Span and Concentration: limited Recent and Remote Memory: fair Language: able to name/identify objects without impairment Fund of Knowledge: intact with awareness of current and past events ED Course Labs Ordered and Resulted from Time of ED Arrival to Time of ED Departure URINE DRUG SCREEN PANEL - Normal Result Value Amphetamines Urine Screen Negative Barbituates Urine Screen Negative Benzodiazepine Urine Screen Negative Cannabinoids Urine Screen Negative Cocaine Urine Screen Negative Fentanyl Qual Urine Screen Negative Opiates Urine Screen Negative PCP Urine Screen Negative Assessments & Plan (with Medical Decision Making) Patient presenting with concern for emerging psychosis involving prominent paranoid delusions. Collateral information indicates progressive symptoms since fall of last year however more prominent andimpairing over the past 1 to 2 weeks. There does not appear to be any history of mental illness forthe patient although there is a family history for schizophrenia. His treatment plan is focused on initiating an antipsychotic medication and monitoring his response and tolerability. Nursing notes reviewed noting no acute issues. I have reviewed the assessment completed by the [facility]. During the observation period, the patient [...] the monitoring period. Preliminary diagnosis: ICD-10-CM 1. Paranoia (H) F22 2. Insomnia due to other mental disorder F51.05 F99 3. Psychosis, unspecified psychosis type (H) F29 4. Anxiety F41.9 Treatment Plan: -Begin Zyprexa 10 mg nightly targeting antipsychotic treatment -Etiology of emerging psychosis is unknown at this time. I would recommend a more extensive workup on an outpatient basis to rule out any potential underlying medical causes. A CMP, CBC, TSH, and RPRhave been ordered for tomorrow morning as part of that medical workup. Brain imaging may be considered on an outpatient basis although there does not appear to be any other urgent neurologic concern at the moment to warrant pursuing an MRI in the emergency department. -Urine drug screen was reviewed and negative for illicit substances -Referral to outpatient psychiatry for further follow-up and evaluation. -Enter to observation status and reassess tomorrow. Based on my examination today, the patient did not meet criteria to be placed under an involuntary hold. He was agreeable to extend his stay on theunit overnight. -- Rene Triplett MD [facility] EMERGENCY DEPT [facility] Unit Rene Triplett MD 12/07/23 1518 * Misael Robertson - 12/07/2023 11:01 AM CDT Tatyana Post (): * Josephine Lee RN - 12/07/2023 10:22 AM CDT EMPATH staff at bedside speaking with patient * Josephine Lee RN - 12/07/2023 9:45 AM CDT [facility] ED to EMPATH Checklist: Goal for EMPATH: Delusions and Time to stabilize Current Behavior: Flat Affect, Calm, and Cooperative Safety Concerns: None Legal Hold Status: Voluntary Medically Cleared by ED provider: Yes Patient Therapeutically Searched: Security wanded Belongings: Remain with patient Independent Ambulation at Baseline: Yes/No: Yes Participates in Care/Conversation: Yes/No: Yes Patient Informed about EMPATH: Yes/No: Yes DEC: Ordered and pending Patient Ready to be Transferred to EMPATH? Yes/No: Yes * Josephine Lee RN - 12/07/2023 9:38 AM CDT Patient brought to ED by with mental health concerns. reports patient has not been sleeping for multiple nights and has had behavior changes that is not typical for patient. 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 She states that patient's behavior began to change this past fall but has escalated. states that patient is paranoid, and thinks that people are bugging their e lectronics. 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 Patient states that he feels fine and does not think his behavior is any different for him. Patient denies SI or HI. No hx of mental health issues as reported by . * Glen Santizo RN - 12/07/2023 9:25 AM CDT Comes in with ; has been talking mostly for pt; states crisis team advised pt to comein because he isn't sleeping and maybe in psychosis. states he is stressed over softball; pt feels he's not that bad * Denver Summers MD - 12/07/2023 9:16 AM CDT History Chief Complaint: Psychiatric Evaluation and Insomnia The history is provided by the patient and the spouse. The history is limited by the condition of the patient (Poor Historian). Ant Beckford is a 38 year old male with a history of hypertension who presents for psychiatric evaluation and insomnia. 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 It has worsened over the pastcouple of days, and he has become more paranoid during that time period. He thinks that people are bugging his house and a neighbor's electronic device is messing with his house. Additionally, the mentioned that he has been sending people erratic emails and showing up at other college sports coach'shouses. However, the patient claims he feels fine at bedside and claims that his behavior has not been different lately. His notes that he has not slept over the past 2 days. He denies suicidal ideations, homicidal ideations, chest pain, shortness of breath, depression, or hallucinations. Independent Historian: The supplements the history noted above. Review of External Notes: None Medications: Norvasc Zestoretic Past Medical History: HTN Obesity FAITH Past Surgical History: L foot surgery Vasectomy Physical Exam Patient Vitals for the past 24 hrs: BP Temp Temp src Pulse Resp SpO2 Height Weight 12/07/23 1037 (!) 168/115 98.4 ??F (36.9 ??C) Oral 86 18 99 % 1.854 m (6' 1) (!) 189.3 kg (417 lb 6.4 oz) 12/07/23 0925 (!) 183/99 98.3 ??F (36.8 ??C) -- 82 20 98 % -- -- Physical Exam Constitutional: Vital signs reviewed. Pleasant. Tired appearing. HEENT: Moist mucous membranes Cardiovascular: Regular rate and rhythm Pulmonary/Chest: Breathing comfortably on room air. No audible wheezing Musculoskeletal/Extremities: No bony deformities. Moves all 4 extremities without difficulty. Neurological: Alert. No focal deficits. Endo: No pitting edema Skin: No visible rash. Psychiatric: Pleasant. Slow with responses. Paranoid thoughts. Denies SI or HI. Emergency Department Course Imaging: No orders to display Results per radiology Laboratory: Labs Ordered and Resulted from Time of ED Arrival to Time of ED Departure - No data to display Emergency Department Course & Assessments: Interventions: Medications OLANZapine zydis (zyPREXA) ODT tab 10 mg (10 mg Oral $Given 12/07/23 1121) OLANZapine (zyPREXA) injection 10 mg (has no administration in time range) Assessments: 0936 I obtained history and examined the patient as noted above. I discussed plan for transfer to the EmPATH Unit. Independent Interpretation (X-rays, CTs, rhythm strip): None Consultations/Discussion of Management or Tests: None Social Determinants of Health affecting care: Stress/Adjustment Disorders [facility] Diagnoses: None Medical Decision Making: Patient presents to the emergency department with his . Apparently for the past couple of days he is becoming very paranoid and feels like some is tracking him. He does mention some slurred electronic device in the house which is bothering him. He denies any thoughts of self-harm or want to harm others. No chest pain or other physical complaints at this time. This is completely abnormal behavior for him. He continues to perseverate on his feeling weak and not sleeping well. He was agreeableto go to the empath unit for further evaluation and workup. Diagnosis: ICD-10-CM 1. Paranoia (H) F22 2. 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 12/07/2023 Denver Summers MD Walters, Brent Aaron, MD 12/07/23 1218 documented in this encounter Plan of Treatment Upcoming Encounters Date Type Department Care Team (Late st Contact Info) Description 04/01/2024 2:00 PM CDT Appointment [facility] [address] [place] [address] Omero Pham MD [facility] [address] [place] [address] 04/01/2024 2:40 PM CDT Office Visit [facility] [place] [address] [place] [phone] Omero Pham MD [facility] [address] [place] [address] 04/09/2024 2:00 PM CDT Office Visit [facility] [address] [place] [phone] Valentin Muñoz MD [address] [facility] [place] [address] Roro Acevedo PA-C [address] [place] [address] 06/18/2024 12:00 PM CDT Virtual Visit [facility] [address] [place] [address] Josephine Krishnan PA-C [address] [id number] documented as of this encounter Procedures Procedure Name Priority Date/Time Associated Diagnosis Comments URINE DRUG SCREEN STAT 12/07/2023 12: 50 PM CDT URINE DRUG SCREEN PANEL STAT 12/07/2023 12:50 PM CDT documented in this encounter Results * Urine Drug Screen Panel (12/07/2023 12:50 PM CDT) [facility] Amphetamines Urine Screen Negative Screen Negative 12/07/2023 1:46 PM CDT LABORATORY Comment:Cutoff for a negativ e amphetamine is less than 500 ng/mL. Barbituates Urine Screen Negative Screen Negative 12/07/2023 1:46 PM CDT LABORATORY Comment:Cutoff for a negativ e barbiturate is less than 200 ng/mL. Benzodiazepine Urine Screen Negative Screen Negative 12/07/2023 1:46 PM CDT LABORATORY Comment:Cutoff for a negativ e benzodiazepine is less than 100 ng/mL. Cannabinoids Urine Screen Negative Screen Negative 12/07/2023 1:46 PM CDT LABORATORY Comment:Cutoff for a negativ e cannabinoid is less than 50 ng/mL. Cocaine Urine Screen Negative Screen Negative 12/07/2023 1:46 PM CDT LABORATORY Comment:Cutoff for a negativ e cocaine is less than 300 ng/mL. Fentanyl Qual Urine Screen Negative Screen Negative 12/07/2023 1:46 PM CDT LABORATORY Comment:Cutoff for negative fentanyl is less than 5 ng/mL. Opiates Urine Screen Negative Screen Negative 12/07/2023 1:46 PM CDT LABORATORY Comment:Cutoff for a negativ e opiate is less than 300 ng/mL. PCP Urine Screen Negative Screen Negative 12/07/2023 1:46 PM CDT LABORATORY Comment:Cutoff for a negativ e PCP is less than 25 ng/mL. Urine MID-STREAM URINE SPECIMEN / Unknown Non-blood Collection / Unknown 12/07/2023 12:50 PM CDT 12/07/2023 12:57 PM CDT Rene Triplett MD LAB - URINE ORDERABL ES LABORATORY [facility] [address] 1[address], [address] [place] [address] documented in this encounter Visit Diagnoses Diagnosis Paranoia (H) Delusional disorder Insomnia due to other mental disorder Psychosis, unspecified psychosis type (H) Anxiety Anxiety state, unspecified Psychosis, unspecified psychosis type (H) Anxiety Anxiety state, unspecified Paranoia (H) Delusional disorder Insomnia due to other mental disorder documented in this encounter Administered Medications Inactive Administered Medications - up to 3 most recent administrations Medication Order MAR Action Action Date Dose Rate Site amLODIPine (NORVASC) tablet 10 mg 10 mg, Oral, DAILY, First dose on Mon12/07/23 at 1300 $Given 12/08/2023 7:50 AM CDT 10 mg $Given 12/07/2023 1:45 PM CDT 10 mg gabapentin (NEURONTIN) capsule 300 mg 300 mg, Oral, 3 TIMES DAILY, First dose (after last modification) on Mon12/08/23 at 0800 $Given 12/08/2023 7:50 AM CDT 300 mg lisinopril-hydrochlorothiazide (ZESTORETIC) 20-25 MG per tablet 2 tablet 2 tablet, Oral, DAILY, First dose on Mon12/07/23 at 1300 $Given 12/08/2023 7:50 AM CDT 2 tablets $Given 12/07/2023 2:49 PM CDT 2 tablets LORazepam (ATIVAN) tablet 1 mg 1 mg, Oral, 2 TIMES DAILY PRN, anxiety, agitation, Starting on Mon12/07/23 at 2153 $Given 12/07/2023 10:19 PM CDT 1 mg OLANZapine (zyPREXA) injection 10 mg 10 mg, Intramuscular, DAILY PRN, agitation, aggression, Starting on Sara 12/07/23 at 1059, Dissolve the contents of the 10 mg vial using 2.1 mL of Sterile Water for Injection to provide a solution containing 5 mg/mL of olanzapine. Withdraw the ordered dose from vial. Use immediately (within 1 hour) after reconstitution. Discard any unused portion. OLANZapine (zyPREXA) tablet 10 mg 10 mg, Oral, AT BEDTIME, First dose on Sara 12/07/23 at 2200, Combined IM and PO doses may significantly increase the risk of orthostatic hypotension at 30 mg per day or higher. $Given 12/07/2023 9:07 PM CDT 10 mg OLANZapine zydis (zyPREXA) ODT tab 10 mg 10 mg, Oral, EVERY 6 HOURS PRN, agitation, aggression, or severe psychosis, Starting on Sara 12/07/23 at 1059, Combined IM and PO doses may significantly increase the risk of orthostatic hypotension at 30 mg per day or higher. With dry hands, peel back foil backing and gently remove tablet. Do not push oral disintegrating tablet through foil backing. Administer immediately on tongue and oral disintegrating tablet dissolves in seconds, then swallow with saliva. Liquid not required. $Given 12/07/2023 11:21 AM CDT 10 mg OLANZapine zydis (zyPREXA) ODT tab 5-10 mg 5-10 mg, Oral, EVERY 6 HOURS PRN, agitation, aggression, or severe psychosis, Starting on Sara 12/07/23 at 1450, Combined IM and PO doses may significantly increase the risk of orthostatic hypotension at 30 mg per day or higher. With dry hands, peel back foil backing and gently remove tablet. Do not push oral disintegrating tablet through foil backing. Administer immediately on tongue and oral disintegrating tablet dissolves in seconds, then swallow with saliva. Liquid not required. $Given 12/08/2023 2:36 AM CDT 5 mg $Given 12/07/2023 6:12 PM CDT 5 mg traZODone (DESYREL) tablet 100 mg 100 mg, Oral, AT BEDTIME PRN, sleep, Starting on Sara 12/07/23 at 2210 documented in this encounter Active and Recently Administered Medications Times are shown in CDT. Scheduled Medication Order 12/06/2023 12/07/2023 12/08/2023 amLODIPine (NORVASC) tablet 10 mg 10 mg, Oral, DAILY, First dose on Mon12/07/23 at 1300 1345 ($Given - Provider: Angeline Sherwood RN) 0750 ($Given - Provider: Willi Stoner RN) gabapentin (NEURONTIN) capsule 300 mg 300 mg, Oral, 3 TIMES DAILY, First dose (after last modification) on Mon12/08/23 at 0800 0750 ($Given - Provi rafiq: Willi Stoner RN)1400 (Canceled Entry - Provider: Orders Generic Provider - Comment: Automatically canceled at discontinue of medication order) lisinopril-hydrochlorothia zide (ZESTORETIC) 20-25 MG per tablet 2 tablet 2 tablet, Oral, DAILY, First dose on Mon12/07/23 at 1300 1449 ($Given - Provider: Angeline Sherwood RN)1706 (Canceled Entry - Provider: Bunny Redman RN - Comment: given earlier) 0750 ($Given - Provider: Willi Stoner RN) OLANZapine (zyPREXA) tablet 10 mg 10 mg, Oral, AT BEDTIME, First dose on Mon12/07/23 at 2200, Combined IM and PO doses may significantly increase the risk of orthostatic hypotension at 30 mg per day or higher. 2107 ($Given - Provider: Bunny Redman RN) PRN Medication Order 12/06/2023 12/07/2023 12/08/2023 LORazepam (ATIVAN) tablet 1 mg 1 mg, Oral, 2 TIMES DAILY PRN, anxiety, agitation, Starting on Mon12/07/23 at 2153 2219 ($Given - Provider: Bunny Redman RN) OLANZapine (zyPREXA) injection 10 mg 10 mg, Intramuscular, DAILY PRN, agitation, aggression, Starting on Mon12/07/23 at 1059, Dissolve the contents of the 10 mg vial using 2.1 mL of Sterile Water for Injection to provide a solution containing 5 mg/mL of olanzapine. Withdraw the ordered dose from vial. Use immediately (within 1 hour) after reconstitution. Discard any unused portion. OLANZapine zydis (zyPREXA) ODT tab 10 mg (CANCELED) 10 mg, Oral, EVERY 6 HOURS PRN, agitation, aggression, or severe psychosis, Starting on Sara 12/07/23 at 1059, Combined IM and PO doses may significantly increase the risk of orthostatic hypotension at 30 mg per day or higher. With dry hands, peel back foil backing and gently remove tablet. Do not push oral disintegrating tablet through foil backing. Administer immediately on tongue and oral disintegrating tablet dissolves in seconds, then swallow with saliva. Liquid not required. 1121 ($Given - Provider: Angeline Sherwood, YOLIS) OLANZapine zydis (zyPREXA) ODT tab 5-10 mg 5-10 mg, Oral, EVERY 6 HOURS PRN, agitation, aggression, or severe psychosis, Starting on Sara 12/07/23 at 1450, Combined IM and PO doses may significantly increase the risk of orthostatic hypotension at 30 mg per day or higher. With dry hands, peel back foil backing and gently remove tablet. Do not push oral disintegrating tablet through foil backing. Administer immediately on tongue and oral disintegrating tablet dissolves in seconds, then swallow with saliva. Liquid not required. 1812 ($Given - Provider: Bunny Redman RN) 0236 ($Given - Provider: Walter Lainez RN) traZODone (DESYREL) tablet 100 mg 100 mg, Oral, AT BEDTIME PRN, sleep, Starting on Sara 12/07/23 at 2210 documented in this encounter Care Teams Brick Handler Relationship Specialty Start Date End Date Valentin Muñoz MD [address] [place] [address] [place] [address] PCP - General Internal Medicine 10/08/10 Valentin Muñoz MD [address] [facility] [place] [address] Assigned PCP 10/03/16 documented as of this encounter
--- OUTSIDE RECORDS SUMMARY | 2024-03-09 10:51 | XMS_ITS | Encounter Summary ---
Author Organization [facility] Address [address] [place] [address] Care Team Providers Care Malted Milk Supervisor Name Role Phone Valentin Muñoz MD Primary Care Provider [phone] Valentin Muñoz MD Unavailable [phone] Encounter Details Date Type Department Care Team (Latest Contact Info) Description 01/24/2024 Travel Social History Tobacco Use Types Packs/Day [...] week 04/04/2023 How often do you attend [facility] or taoist services? More than 4 times per year 04/04/2023 Do you belong to any clubs o r organizations such as jewish groups, unions, fraternal or athletic groups, or [...] Answer Date Recorded PHQ-2 Score 4 01/24/2024 [facility] - Occupational Stress Questionnaire Answer Date [...] Appointment [facility] [address] [place] [address] Omero Pham MD [facility] [address] [place] [address] 04/01/2024 2:40 PM CDT Office Visit [facility] [place] [address] [place] [phone] Omero Pham MD [facility] [address] [place], [place] [address] 04/09/2024 2:00 PM CDT Office Visit [facility] [address] [place] [address] Valentin Muñoz MD [address] [facility] [address] [place] [id number] Roro Acevedo PA-C [address] [place], [place] [address] 06/18/2024 12:00 PM CDT Virtual Visit [facility] [place] [address] [place] [phone] Josephine Krishnan PA-C [address] [place], [place] [address] documented as of this encounter Visit Diagnoses Not on filedocumented in this encounter Additional Health Concerns Assessment Noted Time PHQ-9 Depression Total Score: 24 024 11:07 AM CDT documented as of this encounter Care Teams Malted Milk Supervisor Relationship Specialty Start Date End Date Valentin Muñoz MD [address] [facility] [place] [address] PCP - General Internal Medicine 10/08/10 Valentin Muñoz MD [address] [facility] [place] [address] Assigned PCP 10/03/16 documented as of this encounter
--- OUTSIDE RECORDS SUMMARY | 2024-03-09 10:51 | XMS_ITS | Encounter Summary ---
Author Organization [facility] Address [address] [place] [address] Care Team Providers Care Public Transit Bus Driver Name Role Phone Valentin Muñoz MD Primary Care Provider [phone] Valentin Muñoz MD Unavailable [phone] Reason for Visit * Reason Comments Anxiety Encounter Details Date Type Department Care Team (Late st Contact Info) Description 01/24/2024 11:30 AM CDT Office [facility] [address] [place] [address] [address] [place] [phone] Valentin Muñoz MD [address] [place], [place] [address] [address] Severe recurrent major depressive disorder with psychotic features (H) (Primary Dx); Anxiety; Insomnia due to other mental disorder Social History Tobacco Use Types Packs/Day Years [...] often do you attend chur ch or yazidism services? More than 4 times per year 04/04/2023 Do you belong to any clubs o r organizations such as moravian groups, unions, fraternal or athletic groups, or [...] Answer Date Recorded PHQ-2 Score 4 01/24/2024 [facility] Occupat ional [facility] - Occupational Stress Questionnaire Answer Date [...] Sign Reading Time Taken Comments Blood Pressure 110/72 01/24/2024 11:14 AM CDT Pulse 109 01/24/2024 11:14 AM CDT Temperature 37.5 ??C (99.5 ??F) 01/24/2024 1 1:14 AM CDT Respiratory Rate 20 01/24/2024 11:1 4 AM CDT Oxygen Saturation 96% 01/24/2024 11: 14 AM CDT Inhaled Oxygen Concentration - - Weight 179.7 kg (396 lb 3.2 oz) 024 11:14 AM CDT Height 182.9 cm (6') 01/24/2024 11:14 AM CDT Body Mass Index 53.73 01/24/2024 11:14 AM CDT documented in this encounter Progress Notes * Valentin Muñoz MD - 01/24/2024 11:30 AM CDT Assessment & Plan ICD-10-CM 1. Severe recurrent major depressive disorder with psychotic features (H) F33.3 2. Anxiety F41.9 3. 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 He is currently working closely with his psychiatry office. I did not adjust any medications today. Discussed use of his current Zyprexa and lorazepam. Reviewed lifestyle changes to help with sleep which likely would significantly help with his mood. He should be in close contact with the psychiatry office. If medication changes are needed for his mood or sleep I recommend he discuss with their office first. Valentin Muñoz MD Bassam Cain is a 38 year old, presenting for the following health issues: Anxiety 01/24/2024 11:06 AM Additional Questions Roomed by Chloe Accompanied by Tatyana 01/24/2024 11:06 AM Patient Reported Additional Medications Patient reports taking the following new medications none Anxiety Anxiety How are you doing with your anxiety since your last visit? Worsened much worse Are you having other symptoms that might be associated with anxiety? Yes: insomnia Have you had a significant life event? Job Concerns Are you feeling depressed? Yes: a little Do you have any concerns with your use of alcohol or other drugs? No Social History Tobacco Use Smoking status: Never Smokeless tobacco: Never Vaping Use Vaping status: Never Used Substance Use Topics Alcohol use: Yes Drug use: No 01/24/2024 11:08 AM CAROLE-7 SCORE Total Score 21 (severe anxiety) Total Score 21 01/24/2024 11:07 AM PHQ PHQ-9 Total Score 24 Q9: Thoughts of better off /self-harm past 2 weeks Nearly every day F/U: Thoughts of suicide or self-harm Yes F/U: Self harm-plan Yes F/U: Self-harm action No F/U: Safety concerns Yes Pk is here with his today to discuss ongoing severe mental health symptoms. He has been struggling with symptoms of depression and anxiety and severe insomnia over the last several weeks. No specific known cause for the worsening of his symptoms. He has been unable to sleep except for a few hours in the past week. He is being managed by psychiatry clinic. They have made some medication adjustments recently. Last week his symptoms were severe enough to prompt him to be evaluated in the emergency department. He was also evaluated in the emergency department in mid November. During the most recent evaluation he was cared for in the empath unit overnight. Since discharge he did have 1 meeting with his psychiatry clinic. Currently he is taking Zyprexa 10 mg at bedtime. He was just given a prescription for lorazepam. Dose is not known at this time as they have not yet picked up that prescription. He tells me it was for 5 tablets. He was directed to take a dose of Zyprexa yesterday morning. He did not take a dose this morning. Unfortunately he continues to have very dark thoughts. He does have suicidal thoughts but does not currently feel that he would act on those thoughts. He is willing to seek emergency care should thisprogress. We spent time today reviewing options to help with his sleep as well as ongoing help with his overall mood. I recommend that his medications continue to be managed through his psychiatry clinic. We discussed nonmedication options to help with his mood including getting outdoors during the daytime to have sunlight exposure, avoiding naps, starting at least light physical activity, avoiding caffeine after 3 PM, avoiding any activities that may cause brain stimulation at least 1 hour prior tobedtime. Objective BP 110/72 (BP Location: Right arm, Patient Position: Sitting, Cuff Size: Adult Large) Pulse 109 Temp 99.5 ??F (37.5 ??C) (Tympanic) Resp 20 Ht 1.829 m (6') Wt (!) 179.7 kg (396 lb 3.2 oz) SpO2 96% BMI 53.73 kg/m?? Body mass index is 53.73 kg/m??. Physical Exam GEN: no distress. PSYCH: fairly flat affect. Does interact well and appropriately. Signed Electronically by: Valentin Muñoz MD Answers submitted by the patient for this visit: Patient Health Questionnaire (Submitted on 01/24/2024) If you checked off any problems, how difficult have these problems made it for you to do your work,take care of things at home, or get along with other people?: Extremely difficult PHQ9 TOTAL SCORE: 24 CAROLE-7 (Submitted on 01/24/2024) CAROLE 7 TOTAL SCORE: 21 documented in this encounter Plan of Treatment Upcoming Encounters Date Type Department Care Team (Late st Contact Info) Description 04/01/2024 2:00 PM CDT Appointment [facility] [address] [place] [phone] Omero Pham [facility] [address] [facility] [address] [place], [place] [phone] 04/01/2024 2:40 PM CDT Office Visit [facility] [place] [address] [place] [phone] Omero Pham MD [facility] [address] [place] [address] 04/09/2024 2:00 PM CDT Office Visit [facility] [address] [place] [phone] Valentni Muñoz MD [address] [place] [address] [place] [address] Roro Acevedo PAShannaC [address] [place], [place] [phone] 06/18/2024 12:00 PM CDT Virtual Visit [facility] [place] [address] [place] [phone] Josephine Krishnan PA-C [address] [facility] [address] [place], [place] [address] documented as of this encounter Visit Diagnoses Diagnosis Severe recurrent major depressive disorder with psychotic features (H)- Primary Anxiety Anxiety state, unspecified Insomnia due to other mental disorder documented in this encounter Additional Health Concerns Assessment Noted Time PHQ-9 Depression Total Score: 24 024 11:07 AM CDT documented as of this encounter Care Teams Public Transit Bus Driver Relationship Specialty Start Date End Date Valentin Muñoz MD [address] [place] [address] [place] [address] PCP - General Internal Medicine 10/08/10 Valentin Muñoz MD [address] [place] [address] [place] [address] Assigned PCP 10/03/16 documented as of this encounter
--- OUTSIDE RECORDS SUMMARY | 2024-03-09 10:51 | XMS_ITS | Encounter Summary ---
Author Organization [place] Address [address] [place] [address] Care Team Providers Care Hydrochloric Acid Operator Name Role Phone Valentin Muñoz MD Primary Care Provider [phone] Valentin Muñoz MD Unavailable [phone] Encounter Details Date Type Department Care Team (Latest Contact Info) Description 01/30/2024 Travel Social History Tobacco Use Types Packs/Day [...] week 04/04/2023 How often do you attend [facility] or evangelical services? More than 4 [...] Answer Date Recorded PHQ-2 Score 4 01/24/2024 [facility] - Occupational Stress Questionnaire Answer Date Recorded [...] [address] [place] [address] Omero Pham MD [facility] [address] [place] [address] 04/01/2024 2:40 PM CDT Office Visit [facility] [place] [address] [place] [phone] Omero Pham MD [facility] [address] [place], [place] [address] 04/09/2024 2:00 PM CDT Office Visit [facility] [address] [place] [address] Valentin Muñoz MD [address] [facility] [address] [place] [phone] Roro Acevedo PA-C [address] [place], [place] [address] 06/18/2024 12:00 PM CDT Virtual Visit [facility] [place] [address] [place] [phone] Josephine Krishnan PA-C [address] [place], [place] [address] documented as of this encounter Visit Diagnoses Not on filedocumented in this encounter Additional Health Concerns Assessment Noted Time PHQ-9 Depression Total Score: 24 024 11:07 AM CDT documented as of this encounter Care Teams Hydrochloric Acid Operator Relationship Specialty Start Date End Date Valentin Muñoz MD [address] [facility] [place] [address] PCP - General Internal Medicine 10/08/10 Valentin Muñoz MD [address] [facility] [place] [address] Assigned PCP 10/03/16 documented as of this encounter
--- OUTSIDE RECORDS SUMMARY | 2024-03-09 10:51 | XMS_ITS | Encounter Summary ---
Author Organization [place] Address [address] [place] [address]. [place] [address] Care Team Providers Care Computer Equipment Repairer Name Role Phone Valentin Muñoz MD Primary Care Provider [phone] Valentin Muñoz MD Unavailable [phone] Encounter Details Date Type Department Care Team (Late st Contact Info) Description 12/21/2023 Medical Correspondence [facility] Info Mgmt Srvcs [address] [place] [address] Scan, Non-Provider Social History Tobacco Use Types Packs/Day Years [...] often do you attend chur ch or baptist services? More than 4 times per year 04/04/2023 Do you belong to any clubs o r organizations such as alevism groups, unions, fraternal or athletic groups, or [...] Answer Date Recorded PHQ-2 Score 0 01/20/2023 [facility] - Occupational [...] place to sleep or slept in a snf (including now)? No 04/04/2023 Adolescent Education Answer [...] Info) Description 04/01/2024 2:00 PM CDT Appointment [facility] [address] [place] [address] Omero Pham MD [facility] [address] [place] [address] 04/01/2024 2:40 PM CDT Office Visit [facility] [place] [address] [place] [phone] Omero Pham MD [facility] [address] [place] [address] 04/09/2024 2:00 PM CDT Office Visit [facility] [address] [facility] [address] [place] [phone] Valentin Muñoz MD [address] [facility] [address] [place] [phone] Roro Acevedo PA-C [address] [place], [place] [address] 06/18/2024 12:00 PM CDT Virtual Visit [facility] [place] [address] [place] [phone] Josephine Krishnan PA-C [address] [place], [place] [address] documented as of this encounter Visit Diagnoses Not on filedocumented in this encounter Care Teams Computer Equipment Repairer Relationship Specialty Start Date End Date Valentin Muñoz MD [address] [facility] [place] [address] PCP - General Internal Medicine 10/08/10 Valentin Muñoz MD [address] [facility] [place] [address] Assigned PCP 10/03/16 documented as of this encounter
--- OUTSIDE RECORDS SUMMARY | 2024-03-09 10:51 | XMS_ITS | Encounter Summary ---
Author Organization [place] Address [address] [place] [address] Care Team Providers Care Casting Machine Set Up Operator Name Role Phone Valentin Muñoz MD Primary Care Provider [phone] Valentin Muñoz MD Unavailable [phone] Reason for Visit * Reason Onset Date Comments Forms 01/31/2024 Encounter Details Date Type Department Care Team (Late st Contact Info) Description 01/31/2024 Telephone [facility] Janelle [address] [place] [address] [address] [place] [address] Valentin Muñoz MD [address] [place] [address] [place] [address] Forms Social History Tobacco Use Types Packs/Day Years [...] often do you attend chur ch or evangelical services? More than 4 times per year 04/04/2023 Do you belong to any clubs o r organizations such as pentecostal groups, unions, fraternal or athletic groups, or [...] Answer Date Recorded PHQ-2 Score 4 01/24/2024 [facility] - Occupational [...] encounter Miscellaneous Notes * Telephone Encounter - Carolyn Gardner LPN - 02/15/2024 3:43 PM CDT Faxed again. Carolyn Gardner LPN * Telephone Encounter - Dilia Lei - 02/14/2024 11:30 AM CDT Chanel from [facility] [employer] called stating they have not received these forms. Forms sent twice. Encounter 01/30 and 02/04. Please find forms and re-fax to [phone]. Dilia Lei on 02/14/2024 at 11:32 AM * Telephone Encounter - Daysi Sotelo - 02/06/2024 9:52 AM CDT Forms faxed Daysi Sotelo on 02/06/2024 at 9:52 AM' * Telephone Encounter - Valentin Muñoz MD - 02/05/2024 1:24 PM CDT Disability forms completed. Please fax to [facility] [employer] and abstract. Thank you. * Telephone Encounter - Valentin Muñoz MD - 02/05/2024 9:46 AM CDT Forms found. * Telephone Encounter - Valentin Muñoz MD - 02/05/2024 9:06 AM CDT I don't have these forms. * Telephone Encounter - Ila Noyola PA-C - 02/02/2024 12:33 PM CDT I don't see forms. Ila Noyola PA-C * Telephone Encounter - Herlinda Richmond - 01/31/2024 7:22 AM CDT Forms/Letter Request Type of form/letter: Disability Do we have the form/letter: Yes: Who is the form from? Insurance comp Where did/will the form come from? form was faxed in When is form/letter needed by: [facility] Please mail the form to [facility] Form placed in provider's folder. Herlinda Richmond on 01/31/2024 at 7:52 AM documented in this encounter Plan of Treatment Upcoming Encounters Date Type Department Care Team (Late st Contact Info) Description 04/01/2024 2:00 PM CDT Appointment [facility] Imaging [address] [place] [phone] Omero Pham MD [facility] RAD[facility] CONS [address] [facility] [address] [place], [place] [address] 04/01/2024 2:40 PM CDT Office Visit [facility] [place] [address] [place] [phone] Omero Pham MD [facility] [address] [place] [address] 04/09/2024 2:00 PM CDT Office [facility] [address] [place] [phone] Valentin Muñoz MD [address] [facility] [place] [address] Roro Acevedo PAShannaC [address] [place], [place] [address] 06/18/2024 12:00 PM CDT Virtual Visit [facility] [place] [address] [place] [phone] Josephine Krishnan PA-C [address] [facility] [address] [place], [place] [address] documented as of this encounter Visit Diagnoses Not on filedocumented in this encounter Additional Health Concerns Assessment Noted Time PHQ-9 Depression Total Score: 24 024 11:07 AM CDT documented as of this encounter Care Teams Casting Machine Set Up Operator Relationship Specialty Start Date End Date Valentin Muñoz MD [address] [place] [address] [place] [address] PCP - General Internal Medicine 10/08/10 Valentin Muñoz MD [address] [place] [address] [place] [address] Assigned PCP 10/03/16 documented as of this encounter
--- OUTSIDE RECORDS SUMMARY | 2024-03-09 10:52 | XMS_ITS | Encounter Summary ---
Author Organization [place] Address [address] [place] [address] Care Team Providers Care Fertilizer Mixer Name Role Phone Valentin Muñoz MD Primary Care Provider [phone] Valentin Muñoz MD Unavailable [phone] Josephine Krishnan PA-C Unavailable [phone] Encounter Details Date Type Department Care Team (Late st Contact Info) Description 01/03/2022 My[facility] Medical Advice [address] [address] [place] Social History Tobacco Use Types Packs/Day Years Used Date Smoking Tobacco: Never Smokeless Tobacco: Never Alcohol Use Standard Drinks/Week Comments Yes 0 (1 standard drink = 0.6 oz pur e alcohol) AUDIT-C Answer Date Recorded Q1: How often do you have a drink containing alc ohol? Monthly or less 07/22/2019 Q2: How many drinks containi ng alcohol do you have on a typical day when you are drinking? 1 or 2 07/22/2019 Q3: How often do you have si x or more drinks on one occasion? Never 07/22/2019 PHQ-2 Answer Date Recorded PHQ-2 Score 0 10/09/2020 Sex and Gender Information Value Date Recorded Sex Assigned at Not on file Gender Identity Not on file Sexual Orientation Not on file documented as of this encounter Plan of Treatment Upcoming Encounters Date Type Department Care Team (Late st Contact Info) Description 04/01/2024 2:00 PM CDT Appointment [facility] [address] [facility] [address] [place] [address] Omero Pham MD [facility] [address] [place] [address] 04/01/2024 2:40 PM CDT Office Visit [facility] [place] [address] [place] [phone] Omero Pham MD [facility] [address] [place] [address] 04/09/2024 2:00 PM CDT Office Visit [facility] [address] [place] [phone] Valenitn Muñoz MD [address] [facility] [place] [phone] Roro Acevedo PA-C [address] 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
--- OUTSIDE RECORDS SUMMARY | 2024-03-09 10:52 | XMS_ITS | Encounter Summary ---
Author Organization [place] Address [address] [place] [address]. [place] [address] Care Team Providers Care Medical Review Specialist Name Role Phone Valentin Muñoz MD Primary Care Provider [phone] Valentin Muñoz MD Unavailable [phone] Josephine Krishnan PA-C Unavailable [phone] Reason for Visit * Reason Comments Medication Refill Encounter Details Date Type Department Care Team (Late st Contact Info) Description 10/02/2020 Refill [facility] [place] [address] [facility] [address] [place] [address] Valentin Louis, PAMickie [address] [place] [address] Medication Refill Social History Tobacco Use Types Packs/Day Years [...] PHQ-2 Answer Date Recorded PHQ-2 Score 0 08/29/2018 Sex and Gender Information Value Date Recorded Sex Assigned at Not on file Gender Identity Not on file Sexual Orientation Not on file documented as of this encounter Plan of Treatment Upcoming Encounters Date Type Department Care Team (Late st Contact Info) Description 04/01/2024 2:00 PM CDT Appointment [facility] [address] [place] [address] Omero Pham MD [facility] [address] [place], [place] [address] 04/01/2024 2:40 PM CDT Office Visit [facility] [place] [address] [place] [phone] Omero Pham MD [facility] [address] [place] [address] 04/09/2024 2:00 PM CDT Office Visit [facility] [address] [place] [address] Valentin Muñoz MD [address] [place] [address] Roro Acevedo PA-C [address] 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
--- OUTSIDE RECORDS SUMMARY | 2024-03-09 10:52 | XMS_ITS | Encounter Summary ---
Author Organization [place] Address [address] [place] [address] Care Team Providers Care Hand Bootmaker Name Role Phone Valentin Muñoz MD Primary Care Provider [phone] Valentin Muñoz MD Unavailable [phone] Josephine Krishnan PA-C Unavailable [phone] Encounter Details Date Type Department Care Team (Late st Contact Info) Description 01/25/2022 MyC Medical Advice Initial Department Jennifer Ramos Social History Tobacco Use Types Packs/Day Years Used Date Smoking Tobacco: Never Smokeless Tobacco: Never Alcohol Use Standard Drinks/Week Comments Yes 0 (1 standard drink = 0.6 oz pur e alcohol) Social Connection and Isolat ion Panel [NHANES] Answer Date Recorded In a typical week, how many times do you talk on the phone with family, friends, or neighbors? Twice a week 01/28/2022 How often do you get togethe r with friends or relatives? Twice a week 01/28/2022 How often do you attend chur or tenriism services? More than 4 times per year 01/28/2022 Do you belong to any clubs o r organizations such as mu-ism groups, unions, fraternal or athletic groups, or school groups? Yes 01/28/2022 Attends Club or Organization Meetings Not on roger e 01/28/2022 Are you , , di vorced, , never , or living with a partner? 01/28/2022 AUDIT-C Answer Date Recorded Q1: How often do you have a drink containing alc ohol? Monthly or less 01/28/2022 Q2: How many drinks containi ng alcohol do you have on a typical day when you are drinking? 1 or 2 01/28/2022 Q3: How often do you have si x or more drinks on one occasion? Never 01/28/2022 Overall Financial Resource Strain (CARDIA) Answe r Date Recorded How hard is it for you to pa y for the very basics like food, housing, medical care, and heating? Not very hard 01/28/2022 PHQ-2 Answer Date Recorded PHQ-2 Score 0 01/28/2022 [facility] Occupat ional Health - Occupational Stress Questionnaire Answer Date Recorded Do you feel stress - tense, restless, nervous, or anxious, or unable to sleep at night because your mind is troubled all the time - these days? To some extent 01/28/2022 Exercise Vital Sign Answer Date Recorde d On average, how many days pe r week do you engage in moderate to strenuous exercise (like a brisk walk)? 4 days 01/28/2022 On average, how many minutes do you engage in exercise at this level? 40 min 01/28/2022 Hunger Vital Sign Answer Date Recorded Within the past 12 months, y ou worried that your food would run out before you got the money to buy more. Never true 01/29/20 22 Within the past 12 months, t he food you bought just didn't last and you didn't have money to get more. Never true 01/28/2022 PRAPARE - Transportation Answer Date Re corded In the past 12 months, has l ack of transportation kept you from medical appointments or from getting medications? No 01/19 In the past 12 months, has l ack of transportation kept you from meetings, work, or from getting things needed for daily living? No 01/28/2022 Housing Stability Vital Sign Answer Dimas e Recorded In the last 12 months, was t here a time when you were not able to pay the mortgage or rent on time? No 01/28/2022 Number of Places Lived in the Last Year Not on f ile 01/28/2022 In the last 12 months, was t here a time when you did not have a steady place to sleep or slept in a usp (including now)? No 01/28/2022 Sex and Gender Information Value Date Recorded Sex Assigned at Not on file Gender Identity Not on file Sexual Orientation Not on file COVID-19 Exposure Response Date Recorded In the last 10 days, have yo u been in contact with someone who was confirmed or suspected to have Coronavirus/COVID-19? No / Unsure 01/28/2022 1:09 PM CDT documented as of this encounter Plan of Treatment Upcoming Encounters Date Type Department Care Team (Late st Contact Info) Description 04/01/2024 2:00 PM CDT Appointment [facility] [address] [place] [address] Omero hPam MD [facility] [address] [place], [place] [address] 04/01/2024 2:40 PM CDT Office Visit [facility] [place] [address] [place] [phone] Omero Pham MD [facility] [address] [place], [place] [address] 04/09/2024 2:00 PM CDT Office Visit [facility] for Ble[facility]ot[facility] Disorders [address] [place] [phone] Valentin Muñoz MD [address] [facility] [address] [place] [phone] Roro Acevedo PA-C [address] [place], [place] [address] 06/18/2024 12:00 PM CDT Virtual Visit 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
--- OUTSIDE RECORDS SUMMARY | 2024-03-09 10:52 | XMS_ITS | Encounter Summary ---
Author Organization [place] Address [address] [place] [address] Care Team Providers Care Manager Casino Name Role Phone Valentin Muñoz MD Primary Care Provider Valentin Muñoz MD Unavailable [phone] Josephine Espinal PA-C Unavailable [phone] Encounter Details Date Type Department Care Team (Late st Contact Info) Description 01/24/2022 [facility] Medical Advice [address] [address] [place], [place] Social History [...] 01/28/2022 How often do you attend chur ch or restorationism services? More than 4 times per year 01/28/2022 Do you belong to any clubs o r organizations such as hinduism groups, unions, fraternal or athletic groups, or [...] Answer Date Recorded PHQ-2 Score 0 01/28/2022 [facility] Occupat ional Health - Occupational Stress [...] place to sleep or slept in a halfway (including now)? No 01/28/2022 Sex and Gender Information Value Date Recorded Sex Assigned at Not on file Gender Identity Not on file Sexual Orientation Not on file COVID-19 Exposure Response Date Recorded In the last 10 days, have yo u been in contact with someone who was confirmed or suspected to have Coronavirus/COVID-19? No / Unsure 01/25/2022 11:07 AM CDT documented as of this encounter Plan of Treatment Upcoming Encounters Date Type Department Care Team (Late st Contact Info) Description 04/01/2024 2:00 PM CDT Appointment [facility] [address] [place] [address] Omero Pham MD [facility] [address] [facility] [address] [place] [address] 04/01/2024 2:40 PM CDT Office Visit [facility] [place] [address] [place] [phone] Omero Pham MD [facility] [address] [address] [place], [place] [address] 04/09/2024 2:00 PM CDT Office Visit [facility] Ble[facility]ot[facility] Disorders [address] [place] [phone] Valentin Muñoz MD [address] [facility] [place] [address] Roro Acevedo PA-C [address] 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
--- OUTSIDE RECORDS SUMMARY | 2024-03-09 10:52 | XMS_ITS ---
Author Organization [place] Address [address] [place] [address] Care Team Providers Care Semiconductors Wafer Breaker Name Role Phone Valentin Muñoz MD Primary Care Provider [phone] Valentin Muñoz MD Unavailable [phone] Transitional Care Management Status:Enrolled (Active) Start date:02/26/2024 Enrollment date:02/27/2024 Case Team Name Relationship Phone Christopher Good [facility] Clinic Hand Welt Butter(Respons ible Staff) [phone] Continued Care and Services Coordination
--- OUTSIDE RECORDS SUMMARY | 2024-03-09 10:52 | XMS_ITS | Encounter Summary ---
Author Organization [facility] Address [address] [place] [address]. [place] [address] Care Team Providers Care Central Communications Specialist Name Role Phone Valentin Muñoz MD Primary Care Provider [phone] Valentin Muñoz MD Unavailable [phone] Josephine Krishnan PA-C Unavailable [phone] Encounter Details Date Type Department Care Team (Late Contact Info) Description 11/05/[address] [facility] [address] [facility] [address] [place] [phone] Dilia Lei Social History Tobacco Use Types Packs/Day Years [...] Info) Description 04/01/2024 2:00 PM CDT Appointment [facility] [address] [place] [address]. [address] [place] [id number] Omero Pham MD [facility] [address] [place] [address] 04/01/2024 2:40 PM CDT Office Visit [facility] [address] [place] [phone] Omero Pham MD [facility] [address] [place] [address] 04/09/2024 2:00 PM CDT Office Visit [facility] [address] [place] [phone] Valentin Muñoz MD [address] [place] [address] [place] [phone] Roro Acevedo PA-C [address] 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
--- OUTSIDE RECORDS SUMMARY | 2024-03-09 10:52 | XMS_ITS | Encounter Summary ---
Author Organization [facility] Address [address] [place] [address] Care Team Providers Care Anode Builder Name Role Phone Valentin Muñoz MD Primary Care Provider [phone] Valentin Muñoz MD Unavailable [phone] Josephine Espinal PA-C Unavailable [phone] Encounter Details Date Type Department Care Team (Late st Contact Info) Description 05/17/2022 MyC Medical Advice [facility] [address] [phone] Yeimi Conway, IT APPLICATION ARCHITECT Social History Tobacco Use Types Packs/Day Years [...] often do you attend chur ch or holiness services? More than 4 times per year [...] PHQ-2 Answer Date Recorded PHQ-2 Score 0 05/03/2022 [facility] - Occupational [...] place to sleep or slept in a correction (including now)? No 01/28/2022 Sex and Gender Information Value Date Recorded Sex Assigned at Not on file Gender Identity Not on file Sexual Orientation Not on file documented as of this encounter Plan of Treatment Upcoming Encounters Date Type Department Care Team (Late st Contact Info) Description 04/01/2024 2:00 PM CDT Appointment [facility] [address] [place] [phone] Omero Pham MD [facility] [address] [place], [place] [address] 04/01/2024 2:40 PM CDT Office Visit [facility] [place] [address] [place] [phone] Omeor Pham MD [facility] [address] [place] [address] 04/09/2024 2:00 PM CDT Office Visit [facility] [address] [facility] [address] [place] [phone] Valentin Muñoz MD [address] [facility] [address] [place] [phone] Roro Acevedo PA-C [address] [place], [place] [address] 06/18/2024 12:00 PM CDT Virtual Visit [facility] [place] [address] [place] [phone] Josephine Krishnan PA-C [address] [place] [id number] documented as of this encounter Visit Diagnoses Not on filedocumented in this encounter Additional Health Concerns Infection Onset Date Last Indicated Resolved Time Influenza 07/26/2022 07/26/2022 08/02/2022 11:3 9 PM [employer] documented as of this encounter Care Teams Anode Builder Relationship Specialty Start Date End Date Valentin Muñoz MD [address] [facility] [place] [address] PCP - General Internal Medicine 10/08/10 Valentin Muñoz MD [address] [place] [address] [place] [id number] Assigned PCP 10/03/16 Josephine Krishnan PA-C [address] [place] [id number] Assigned Sleep Provider 01/29/22 documented as of this encounter
--- OUTSIDE RECORDS SUMMARY | 2024-03-09 10:52 | XMS_ITS | Clinical Summary ---
Author Organization [employer] [facility] Address [place], [place] [address] Care Team Providers Care Mine Foreman Name Role Phone Valentin Muñoz MD Primary Care Provider [phone] Allergies Active Allergy Reactions Criticality Noted Date Comments Cephalexin Rash Low 02/26/2009 Medications Medication Sig Dispensed Refills Start Date End Date Status lisinopril-hydroch lorothiazide, 20-25 mg, (PRINZIDE, ZESTORETIC) 20-25 mg per tablet Take 2 Tablets by mouth once daily. 02/27/2023 Active amLODIPine (NORVASC) 10 mg tablet Take 10 mg by mouth once daily. 02/23/2023 Active traZODone (DESYREL) 100 mg tabletIndications: Moderate episode of recurrent major depressive disorder (HC) Take 1 Tablet (100 mg) by mouth at bedtime if needed, may repeat once for Sleep. 60 Tablet 02/06/2024 Active potassium chloride (KLOR-CON M10) 10 mEq extended-release tablet (part/cryst)Indica tions:Hypokalemia Take 1 Tablet (10 mEq) by mouth once daily with a meal. 30 Tablet 02/06/2024 Active hydrOXYzine pamoate (VISTARIL) 50 mg capsuleIndications :Anxiety Take 1 Capsule (50 mg) by mouth 3 times daily if needed for Anxiety. 90 Capsule 02/06/2024 Active LORazepam (ATIVAN) 1 mg tabletIndications: Anxiety Take 1 Tablet (1 mg) by mouth at bedtime if needed for Anxiety. 30 Tablet 02/06/2024 Active rivaroxaban (Xarelto) 15 mg tab tabletIndications: deep vein thrombosis prevention,deep venous thrombosis Take 15 mg by mouth two times daily. 02/22/2024 Active FLUoxetine (PROZAC) 40 mg capsuleIndications :Current severe episode of major depressive disorder without psychotic features, unspecified whether recurrent (HC) Take 1 Capsule (40 mg) by mouth once daily. Take along with 20mg capsule 30 Capsule 03/06/2024 Active risperiDONE (RISPERDAL) 1 mg tabletIndications: Current severe episode of major depressive disorder without psychotic features, unspecified whether recurrent (HC) Take 1 Tablet (1 mg) by mouth at bedtime. 30 Tablet 03/08/2024 Active gabapentin (NEURONTIN) 600 mg tabletIndications: Anxiety disorder, unspecified type Take 2 Tablets (1,200 mg) by mouth at bedtime. 60 Tablet 03/08/2024 Active FLUoxetine (PROZAC) 20 mg capsuleIndications :Current severe episode of major depressive disorder without psychotic features, unspecified whether recurrent (HC) Take 1 Capsule (20 mg) by mouth once daily. take along with 40mg capsule 30 Capsule 03/08/2024 Active FLUoxetine (PROzac) 40 mg capsuleIndications :Moderate episode of recurrent major depressive disorder (HC) Take 1 Capsule (40 mg) by mouth once daily. 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 30 Tablet 02/06/2024 03/08/2024 Discontinued (Reorder (E-cancel not sent)) FLUoxetine (PROZAC) 20 mg capsuleIndications :Current severe episode of major depressive disorder without psychotic features, unspecified whether recurrent (HC) Take 1 Capsule (20 mg) by mouth once daily. Take along with 40mg capsule 30 Capsule 03/06/2024 03/08/2024 Discontinued (*Medication adjustment) gabapentin (NEURONTIN) 600 mg tabletIndications: Anxiety disorder, unspecified type Take 1.5 Tablets (900 mg) by mouth at bedtime. 45 Tablet 03/08/2024 03/08/2024 Discontinued (*Medication adjustment) risperiDONE (RISPERDAL) 2 mg tabletIndications: Current severe episode of major depressive disorder without psychotic features, unspecified whether recurrent (HC) Take 1 Tablet (2 mg) by mouth at bedtime. 30 Tablet 03/08/2024 03/08/2024 Discontinued (*Medication adjustment) Active Problems Problem Noted Date Diagnosed Date Current severe episode of ma angela depressive disorder without psychotic features 02/19/2024 Anxiety disorder 02/19/2024 Hypokalemia 02/03/2024 Sinus tachycardia 02/03/2024 Moderate episode of recurrent major depressive d isorder 02/02/2024 HTN (hypertension) 02/02/2024 Morbid obesity 02/02/2024 FAITH (obstructive sleep apnea) 02/02/2024 Encounters Date Type Department Care Team Description 03/08/2024 8:54 AM CDT - 03/08/2024 11:59 PM CDT Hospital Encounter [facility] [address] [place] [address] Gege Hollingsworth NP Current severe episode of major depressive disorder without psychotic features, unspecified whether recurrent (HC); Anxiety disorder, unspecified type 03/07/2024 1:32 PM CDT - 03/07/2024 5:39 PM CDT Emergency [facility] [address] [place] [address] Rose Lopez DO Dizziness (Primary Dx) Discharge Disposition: Home Self Care 03/07/2024 1:00 PM CDT Office Visit [facility] [address] [place] [address] Lightheaded (Complaints of lightheadedness/di zziness for the last 10 minutes or so. Started during outpatient group therapy at the hospital. Denies any chest pain or shortness of breath. ) 03/07/2024 8:52 AM CDT - 03/07/2024 1:31 PM CDT Hospital Encounter [facility] [address] [place] [address] Gege Hollingsworth NP Current severe episode of major depressive disorder without psychotic features, unspecified whether recurrent (HC); Anxiety disorder, unspecified type 03/07/2024 Travel 03/06/2024 8:54 AM CDT - 03/06/2024 11:59 PM CDT Hospital Encounter [facility] [address] [place] [address] Gege Hollingsworth NP Current severe episode of major depressive disorder without psychotic features, unspecified whether recurrent (HC); Anxiety disorder, unspecified type 03/05/2024 9:00 AM CDT - 03/05/2024 11:59 PM CDT Hospital Encounter [facility] [address] [place] [address] Vickie Buitrago NP Current severe episode of major depressive disorder without psychotic features, unspecified whether recurrent (HC); Anxiety disorder, unspecified type 03/05/2024 Travel 02/27/2024 9:30 AM CDT Office Visit [facility] [address] [place] [address] Rony Gonzáles, [facility] Visit 02/27/2024 Travel 02/20/2024 Telephone [facility] [address] [place] [address] Hanny Byrne RN [facility] 02/20/2024 Telephone [facility] [address] [place] [address] Mayra Estrada returning a call 02/20/2024 Telephone [facility] [address] [place] [address] Hanny Byrne, RN [facility] 02/19/2024 10:54 AM CDT - 02/19/2024 11:59 PM CDT Hospital Encounter [facility] [address] [place] [address] Anxiety disorder, unspecified type (Primary Dx); Current severe episode of major depressive disorder without psychotic features, unspecified whether recurrent (HC) 02/19/2024 Orders Only [facility] [address] [place] [address] Annie Todd, PEDIATRIC CARE COORDINATOR <No scans attached> 02/19/2024 Travel 02/15/2024 Telephone [facility] [address] [place] [address] Pcp, No ASSESSMENT 02/02/2024 9:37 AM CDT - 02/06/2024 5:00 PM CDT Hospital Encounter [facility] [address] [place] [address] Adult, [facility] Psychiatry - Jim Roberts MD Olson, Stephanie A, NP Labreche, Karalee A L, NP Moderate episode of recurrent major depressive disorder (HC) (Primary Dx); Hypokalemia; Anxiety Discharge Disposition: Home Self Care 02/02/2024 Travel from Last 3 Months Social History Tobacco Use Types Packs/Day Years Used Date Smoking Tobacco: Never Smokeless Tobacco: Never Tobacco Cessation:Counseling Given: Not Answered Alcohol Use Standard Drinks/Week Comments Not Currently 0 (1 standard drink = 0.6 oz pur e alcohol) PHQ-2 Answer Date Recorded PHQ-2 TOTAL SCORE 2 03/05/2024 Social Connections Answer Date Recorded Frequency of Communication with Friends and Fami ly 0 02/02/2024 Alcohol Use Answer Date Recorded How often do you have a drink containing alcohol ? 0 02/02/2024 How many drinks containing a lcohol do you have on a typical day when you are drinking? 0 02/02/2024 How often do you have five or more drinks on one occasion? 0 02/02/2024 Financial Resource Strain Answer Date R ecorded Difficulty of Paying Living Expenses 3 02/02/2024 Difficulty of Paying Living Expenses Not on file 02/02/2024 Food Insecurity Answer Date Recorded Worried About Running Out of Food in the Last Ye ar 1 02/02/2024 Transportation Needs Answer Date Record ed Lack of Transportation (Medical) 1 02/02/2024 Housing Stability Answer Date Recorded Unable to Pay for Housing in the Last Year 1 02/02/2024 Sex and Gender Information Value Date Recorded Sex Assigned at Not on file Gender Identity Not on file Sexual Orientation Not on file Obstetrics History Last Filed Vital Signs Vital Sign Reading Time Taken Comments Blood Pressure 113/74 03/07/2024 5:00 PM CDT Pulse 95 03/07/2024 5:00 PM CDT Temperature 36.2 ??C (97.1 ??F) 03/05/2024 1 0:11 AM CDT Respiratory Rate 20 03/07/2024 1:44 PM CDT Oxygen Saturation 94% 03/07/2024 5:00 PM CDT Inhaled Oxygen Concentration - - Weight 169.1 kg (372 lb 11.2 oz) 03/07/2024 1:41 PM CDT Height 182.9 cm (6') 03/07/2024 1:41 PM CDT Body Mass Index 50.55 03/07/2024 1:41 PM CDT Plan of Treatment Upcoming Encounters Date Type Department Care Team (Late st Contact Info) Description 03/11/2024 9:00 AM CDT Appointment [facility] [address] [place] [address] 03/12/2024 9:00 AM CDT Appointment [facility] [address] [place] [address] 03/13/2024 9:00 AM CDT Appointment [facility] [address] [place] [address] 03/14/2024 9:00 AM CDT Appointment [facility] [address] [place] [address] 03/15/2024 9:00 AM CDT Appointment [facility] [address] [place] [address] 03/18/2024 9:00 AM CDT Appointment [facility] [address] [place] [address] 03/19/2024 9:00 AM CDT Appointment [facility] [address] [place] [address] 03/20/2024 9:00 AM CDT Appointment [facility] [address] [place] [address] 03/21/2024 9:00 AM CDT Appointment [facility] [address] [place] [address] 03/22/2024 9:00 AM CDT Appointment [facility] [address] [facility] [place] [address] 03/25/2024 9:00 AM CDT Appointment [facility] [address] [facility] [place] [address] 03/26/2024 9:00 AM CDT Appointment [facility] [address] [facility] [place] [address] Health Maintenance Due Date Last Done Comments Tdap 1995 HIV for age 15-65 1999 Hepatitis C screening for age 18-79 2002 Tetanus booster 2004 COVID-19 vaccine series ( season) 2023 08/16/2021, 12/11/2020, 11/20/2020 BMI (ht and wt on same day) for age 18+ 03/31/2024 03/31/2023 Influenza for age 9-49 04/21/2024 Depression screening for age 12+ 03/08/2025 03/08/2024, 03/07/2024, 03/07/2024, Additional history exists Lipids for age 35-44 02/02/2029 02/03/2024 Pneumococcal series for age 6-64 Aged Out No longer eligible based on patient's age to complete this topic Procedures Procedure Name Priority Date/Time Associated Diagnosis Comments XR CHEST 1 VIEW PORTABLE STAT 03/07/2024 4:20 PM CDT TROPONIN T (HS) ONE TIME Timed 03/07/2024 4:00 PM CDT EKG 12 LEAD STAT 03/07/2024 1:53 PM CDT MAGNESIUM RUTHIE 03/07/2024 1:48 PM CDT PRO-BNP RUTHIE 03/07/2024 1:48 PM CDT TROPONIN T (HS) ACUTE W/2HR REFLEX RUTHIE 03/07/2024 1:48 PM CDT TSH STAT 03/07/2024 1:48 PM CDT BASIC METABOLIC PANEL STAT 03/07/2024 1:48 PM CDT CBC W PLT NO DIFF STAT 03/07/2024 1:4 8 PM CDT POTASSIUM Early AM 02/06/2024 8:00 AM CDT MAGNESIUM Early AM 02/06/2024 8:00 AM CDT POTASSIUM Early AM 02/05/2024 7:47 AM CDT MAGNESIUM Early AM 02/05/2024 7:47 AM CDT URINALYSIS MICROSCOPIC Timed 02/04/2024 2:12 PM CDT STAT DRUG SCREEN Today 02/04/2024 2 :12 PM CDT UA W/ SEDIMENT EXAM REFLEXED PER CRITERIA Today 02/04/2024 2:12 PM CDT POTASSIUM Today 02/04/2024 8:55 AM CDT MAGNESIUM Early AM 02/04/2024 8:55 AM CDT EXTRA TUBE GOLD/SST Today 02/03/2024 1 0:56 PM CDT POTASSIUM Today 02/03/2024 10:56 PM CDT EKG 12 LEAD Routine 02/03/2024 2:23 PM CDT MAGNESIUM RUTHIE 02/03/2024 8:49 AM CDT LIPID PANEL Early AM 02/03/2024 8:49 AM CDT TSH Early AM 02/03/2024 8:49 AM CDT COMP METABOLIC PANEL Early AM 02/03/2024 8:49 AM CDT CBC WITH AUTO DIFFERENTIAL Early AM 02/03/2024 8:48 AM CDT HEMOGLOBIN A1C SCREENING Early AM 02/03/2024 8:48 AM CDT CBC WITH AUTO DIFFERENTIAL Early AM 02/03/2024 8:48 AM CDT from Last 3 Months Results * XR CHEST 1 VIEW PORTABLE (03/07/2024 4:20 PM CDT) Anatomical Region Laterality Modality HEART, THORAX, CHEST Digital Rad iography 03/07/2024 4:47 PM CDT Narrative 03/07/2024 4:47 PM CDT For Patients: ??As a result of the Cures Act, medical imaging exams and procedure reports are released immediately into your electronic medical record. ??You may view this report before your referring provider. ??If you have questions, please contact your health care provider. Indication: Shortness of breath Technique: AP view of the chest. Comparison: None. Findings: Low lung volumes. Moderately elevated right hemidiaphragm. Normal cardiomediastinal silhouette. No focal consolidation, pleural effusions, or visualized pneumothorax. Impression: No acute cardiopulmonary disease. Dictated by Bg Woodson MD @ 03/07/2024 4:47:33 PM (Electronically Signed) Procedure Note Kelvin Woodson MD - 03/07/2024 For Patients: As a result of the Cures Act, medical imagingexams and procedure reports are released immediately into your electronicmedical record. You may view this report before your referring provider.If you have questions, please contact your health care provider. Indication: Shortness of breath Technique: AP view of the chest. Comparison: None. Findings: Low lung volumes. Moderately elevated right hemidiaphragm. Normal cardiomediastinal silhouette. No focal consolidation, pleural effusions, or visualized pneumothorax. Impression: No acute cardiopulmonary disease. Dictated by Bg Woodson MD @ 03/07/2024 4:47:33 PM (Electronically Signed) Rose Lopez DO GENERAL IMAGING * TROPONIN T (HS) ONE TIME (03/07/2024 4:00 PM CDT) Pathologist [facility] TROPONIN T HS 9 6-15 ng/L ng/L 03/07/2024 4:25 PM CDT [facility] Blood BLOOD SPECIMEN / Unknown Venipuncture / Unknown 03/07/2024 4:00 PM CDT 03/07/2024 4:02 PM CDT Rose Lopez DO CHEMISTRY [facility] [address] [place] [address] * EKG 12 LEAD (03/07/2024 1:53 PM CDT) Only the most recent of2 resultswithin the time period is included. Pathologist [facility] Interpretation Sinus rhythm with frequent Premature ventricular complexes Minimal voltage criteria for LVH, may be normal variant Borderline ECG When compared with ECG of 03-Feb-2024 14:23, Premature ventricular complexes are now Present BEYOND NOW Ventricular Rate 96 BPM BEYOND NOW Atrial Rate 96 BPM BEYOND NOW P-R Interval 158 ms BEYOND NOW QRS Duration 98 ms BEYOND NOW QT 370 ms BEYOND NOW QTc 467 ms BEYOND NOW P [place] 22 degrees BEYOND NOW R [place] -9 degrees BEYOND NOW T [place] 20 degrees BEYOND NOW 03/07/2024 1:53 PM CDT 03/08/2024 12:05 PM CDT Rose Lopez DO EKG ORD BEYOND NOW [place], [place] * TROPONIN T (HS) ACUTE W/2HR REFLEX (03/07/2024 1:48 PM CDT) Pathologist [facility] TROPONIN T HS 11 6-15 ng/L ng/L 03/07/2024 2:40 PM CDT [facility] Blood BLOOD SPECIMEN / Unknown Venipuncture / Unknown 03/07/2024 1:48 PM CDT 03/07/2024 1:53 PM CDT [facility] - 03/07/2024 2:40 PM CDT hs-cTnT (Elecsys Troponin T Gen 5) concentration (s) above the sex-specific 99th percentile (16 ng/L or greater for males or 11 ng/L or greater for females) are indicative of myocardial injury. If initial hs-cTnT <=100 ng/L at presentation, a 0h/2h ABSOLUTE (ng/L) delta change (rising or falling) of >=10 ng/L suggests a significant change, whereas a 0h/2h delta change <=3 ng/L suggests no significant change. If initial hs-cTnT >100 ng/L at presentation, a 0h/2h/ RELATIVE (percent, %) delta change of 20% is suggested to distinguish patients with acute vs. chronic myocardial injury. There are multiple etiologies that can cause hs-cTnT increases above the 99th percentile (myocardial injury) other than acute myocardial infarction. Clinical context and careful clinical evaluation are critical for diagnosis and risk-stratification. The diagnosis of acute myocardial infarction requires a rising and/or falling pattern in hs-cTnT concentrations with at least one value above the sex-specific 99th percentile PLUS at least one of the following clinical criteria: ischemic symptoms, new or presumed new significant ST-T wave changes or new LBBB, development of pathological Q waves, imaging evidence of new loss of viable myocardium or new regional wall motion abnormality, or identification of intracoronary atherothrombosis or an acute angiographic culprit on coronary angiography. In appropriate low-risk patients with a non-ischemic electrocardiogram without active chest pain with a symptom onset >3-hours without recurrence, a single initial hs-cTnT<6 ng/L identifies patient with a very low risk in emergency department patient population. Rose Lopez DO CHEMISTRY [facility] [address] [place] [address] * TSH (03/07/2024 1:48 PM CDT) Only the most recent of2 resultswithin the time period is included. Pathologist [facility] TSH 1.04 0.27 - 4.20 uIU/mL 03/07/2024 2:20 PM CDT [facility] Blood BLOOD SPECIMEN / Unknown Venipuncture / Unknown 03/07/2024 1:48 PM CDT 03/07/2024 1:53 PM CDT [facility] - 03/07/2024 2:20 PM CDT In Adults, TSH values between 5.00 and 10.00 uIU/ml do not necessarily indicate the presence of Hypothyroidism. Correlation with clinical findings such as presence of goiter and/or Thyroperoxidase (TPO) Antibody may be helpful. For more information please refer to EVELYN 2004; 291: 228-238. Rose Lopez DO CHEMISTRY [facility] [address] [place] [id number] * CBC W PLT NO DIFF (03/07/2024 1:48 PM CDT) [facility] WHITE BLOOD COUNT 5.7 4.5 - 11.0 thou/cu mm 03/07/2024 2:02 PM T [facility] RED BLOOD COUNT 4.99 4.30 - 5.90 mil/cu mm 03/07/2024 2:02 PM [facility] HEMOGLOBIN 13.8 13.5 - 17.5 g/dL 03/07/2024 2:02 PM [facility] HEMATOCRIT 40.4 37.0 - 53.0 % 03/07/2024 2:02 PM [facility] MCV 81 80 - 100 fL 03/07/2024 2:02 PM [facility] MCH 27.7 26.0 - 34.0 pg 03/07/2024 2:02 PM [facility] MCHC 34.2 32.0 - 36.0 g/dL 03/07/2024 2:02 PM CDT [facility] RDW 13.9 11.5 - 15.5 % 03/07/2024 2:02 PM CDT [facility] PLATELET COUNT 383 140 - 440 thou/cu mm 03/07/2024 2:02 PM CDT [facility] MPV 9.1 6.5 - 11.0 fL 03/07/2024 2:02 PM CDT [facility] Blood BLOOD SPECIMEN / Unknown Venipuncture / Unknown 03/07/2024 1:48 PM CDT 03/07/2024 1:53 PM CDT Rose Lopez DO HEMATOLOGY [facility] [address] [place] [address] * (ABNORMAL) PRO-BNP (03/07/2024 1:48 PM CDT) PRO-BNP 131(H) <125 pg/mL 03/07/2024 2:41 PM CDT [facility] Blood BLOOD SPECIMEN / Unknown Venipuncture / Unknown 03/07/2024 1:48 PM CDT 03/07/2024 1:53 PM CDT Narrative [facility] - 03/07/2024 2:41 PM CDT The following cut-points have been suggested for the use of proBNP for the diagnostic evaluation of heart failure (HF) in patient with acute dyspnea. Patients with eGFR >= 60 Diagnosis (rule in CHF) ? <50 Years Old ?450 pg/mL 50 - 75 Years Old ?900 pg/mL >75 Years Old ? 1800 pg/mL Exclusion (rule out CHF) Age Independent ?300 pg/mL A cutoff of 1200 pg/mL for patients with an eGFR <60 yields a diagnostic sensitivity of 89% and specificity of 72% for acute congestive heart failure. ? Rose Lopez DO SEND OUTS Performing Organization Address [facility] Co de Phone Number [facility] [address] [place] [address] * MAGNESIUM (03/07/2024 1:48 PM CDT) Only the most recent of5 resultswithin the time period is included. Pathologist [facility] MAGNESIUM 2.1 1.6 - 2.6 mg/dL 03/07/2024 3:49 PM CDT [facility] Blood BLOOD SPECIMEN / Unknown Venipuncture / Unknown 03/07/2024 1:48 PM CDT 03/07/2024 1:53 PM CDT Rose Lopez DO CHEMISTRY Performing Organization Address [facility] Co de Phone Number [facility] [address] [place] [address] * (ABNORMAL) BASIC METABOLIC PANEL (03/07/2024 1:48 PM CDT) Pathologist [facility] SODIUM 137 136 - 145 mmol/L 03/07/2024 2:20 PM CDT [facility] POTASSIUM 3.4(L) 3.5 - 5.1 mmol/L 03/07/2024 2:20 PM T [facility] CHLORIDE 99 98 - 107 mmol/L 03/07/2024 2:20 PM [facility] CO2,TOTAL 28 22 - 29 mmol/L 03/07/2024 2:20 PM T [facility] ANION GAP 10 5 - 18 03/07/2024 2:20 PM [facility] GLUCOSE 174(H) 70 - 99 mg/dL 03/07/2024 2:20 PM CDT [facility] CALCIUM 9.5 8.6 - 10.0 mg/dL 03/07/2024 2:20 PM CDT [facility] BUN 14 6 - 20 mg/dL 03/07/2024 2:20 PM CDT [facility] CREATININE 0.90 0.70 - 1.20 mg/dL 03/07/2024 2:20 PM T [facility] BUN/CREAT RATIO 16 10 - 20 2:20 PM T [facility] eGFR >90 >90 mL/min/1.7 3m2 03/07/2024 2:20 PM T [facility] Comment:As of 2021, eG FR is calculated by the CKD-EPI creatinine equation without race adjustment. ??eGFR can be influenced by muscle mass, exercise, and diet. ??The reported eGFR is an estimation only and is only applicable if the renal function is stable. Blood BLOOD SPECIMEN / Unknown Venipuncture / Unknown 03/07/2024 1:48 PM CDT 03/07/2024 1:53 PM CDT Rose Lopez DO CHEMISTRY [facility] [address] [place] [address] * POTASSIUM (02/06/2024 8:00 AM CDT) Only the most recent of4 resultswithin the time period is included. POTASSIUM 3.6 3.5 - 5.1 mmol/L 02/06/2024 8:51 AM CDT [facility] Blood BLOOD SPECIMEN / Unknown Venipuncture / Unknown 02/06/2024 8:00 AM CDT 02/06/2024 8:10 AM CDT Georgia Montgomery RN CHEMISTRY [facility] [address] [place] [address], [place] * STAT Drug Screen (02/04/2024 2:12 PM CDT) ACETAMINOPHEN URINE NEG <=10 mcg/mL 02/04/2024 7:31 PM [facility] AMPHETAMINE URINE NEG <=500 ng/mL 02/04/2024 7:31 PM [facility] BARBITURATE URINE NEG <=200 ng/mL 02/04/2024 7:31 PM [facility] BENZODIAZEPINE URINE NEG <=100 ng/mL 02/04/2024 7:31 PM [facility] BUPRENORPHRINE URINE NEG <=5 ng/mL 02/04/2024 7:31 PM [facility] COCAINE METAB URINE NEG <=300 ng/mL 02/04/2024 7:31 PM [facility] ETHANOL URINE NEG <=10 mg/dL 02/04/2024 7:31 PM [facility] FENTANYL URINE NEG <=4 ng/mL 02/04/2024 7:31 PM [facility] METHADONE URINE NEG <=300 ng/mL 02/04/2024 7:31 PM [facility] OPIATES URINE NEG <=300 ng/mL 02/04/2024 7:31 PM [facility] OXYCODONE URINE NEG <=100 ng/mL 02/04/2024 7:31 PM [facility] PCP URINE NEG <=25 ng/mL 02/04/2024 7:31 PM [facility] SALICYLATE URINE NEG <=10 mg/dL 02/04/2024 7:31 PM [facility] THC 50 URINE NEG <=50 ng/mL 02/04/2024 7:31 PM [facility] [facility] MASS SPECTROMETRY URINE See Below 02/04/2024 7:31 PM [facility] Comment:No basic or neutral drugs found. Urine URINE SPECIMEN / Unknown Non-Blood / Unknown 02/04/2024 2:12 PM CDT 02/04/2024 2:23 PM CDT Narrative [facility] - 02/04/2024 7:31 PM CDT Release to patient->Immediate Didier Bailey ACOUSTICAL LOGGING ENGINEER URINE [facility] Kat [address] [place] [address], [place] * (ABNORMAL) URINALYSIS MICROSCOPIC (02/04/2024 2:12 PM CDT) RBC 0-2 0-2, None Seen /HPF 02/04/2024 2:51 PM CDT [facility] WBC 6-10(A) 0-2, 3-5, None Seen /HPF 02/04/2024 2:51 PM CDT [facility] BACTERIA Rare None Seen, Rare, Few Bacteria/ HPF 02/04/2024 2:51 PM CDT [facility] EPITHELIAL CELLS None Seen None Seen, Few Epi/HPF 02/04/2024 2:51 PM CDT [facility] HYALINE CASTS 0-2 0-2, 3-5 /LPF 02/04/2024 2:51 PM CDT [facility] Urine URINE SPECIMEN / Unknown Non-Blood / Unknown 02/04/2024 2:12 PM CDT 02/04/2024 2:23 PM CDT Didier Bailey ACOUSTICAL LOGGING ENGINEER URINE [facility] [address] [place] [address], [place] * (ABNORMAL) Urinalysis w Reflex Microscopic if Positive (02/04/2024 2:12 PM CDT) COLOR Yellow Yellow Color 02/04/2024 2:51 PM CDT [facility] CLARITY Clear Clear Clarity 02/04/2024 2:51 PM CDT [facility] SPECIFIC GRAVITY,URINE 1.020 1.010, 1.015, 1.020, 1.025 02/04/2024 2:51 PM CDT [facility] PH,URINE 6.5 6.0, 7.0, 8.0, 5.5, 6.5, 7.5, 8.5 02/04/2024 2:51 PM CDT [facility] UROBILINOGEN, QUALITATIVE Normal Normal EU/dl 02/04/2024 2:51 PM CDT [facility] PROTEIN, URINE Negative Negative mg/dL 02/04/2024 2:51 PM CDT [facility] GLUCOSE, URINE Negative Negative mg/dL 02/04/2024 2:51 PM CDT [facility] KETONES,URINE Negative Negative mg/dL 02/04/2024 2:51 PM CDT [facility] BILIRUBIN,URI NE Negative Negative 02/04/2024 2:51 PM CDT [facility] OCCULT BLOOD,URINE Negative Negative 02/04/2024 2:51 PM CDT [facility] NITRITE Negative Negative 02/04/2024 2:51 PM CDT [facility] LEUKOCYTE ESTERASE Small(A) Negative 02/04/2024 2:51 PM CDT [facility] Urine URINE SPECIMEN / Unknown Non-Blood / Unknown 02/04/2024 2:12 PM CDT 02/04/2024 2:23 PM CDT Didier Bailey ACOUSTICAL LOGGING ENGINEER URINE [facility] [address] [place] [address], * EXTRA TUBE GOLD/SST (02/03/2024 10:56 PM CDT) Blood BLOOD SPECIMEN / Unknown Venipuncture / Unknown 02/03/2024 10:56 PM CDT 02/03/2024 11:26 PM CDT Kip Holley RN LABORATORY [facility] [address] [place] [address], [place] * (ABNORMAL) Lipid Panel (02/03/2024 8:49 AM CDT) CHOLESTEROL,TOTAL 108 100 - 199 mg/dL 02/03/2024 9:50 AM CDT [facility] Comment: Cholesterol, Total Reference Ranges Desirable <200 mg/dL Borderline 200-239 mg/dL High >=240 mg/dL TRIGLYCERIDES 108 <150 mg/dL 02/03/2024 9:50 AM CDT [facility] HDL CHOLESTEROL 40(L) >40 mg/dL 9:50 AM CDT [facility] NON-HDL CHOLESTEROL 68 <145 mg/dl 02/03/2024 9:50 AM CDT [facility] CHOL/HDL RATIO 2.70 <4.50 02/03/2024 9:50 AM CDT [facility] LDL CHOLESTEROL 46 <=130 mg/dL 02/03/2024 9:50 AM CDT [facility] VLDL CHOLESTEROL 22 <=30 mg/dL 02/03/2024 9:50 AM CDT [facility] PROVIDER ORDERED STATUS RANDOM 02/03/2024 9:50 AM CDT [facility] Blood BLOOD SPECIMEN / Unknown Venipuncture / Unknown 02/03/2024 8:49 AM CDT 02/03/2024 9:11 AM CDT Didier Bailey ACOUSTICAL LOGGING ENGINEER CHEMISTRY [facility] [address] [place] [address], [place] * (ABNORMAL) Comprehensive Metabolic Panel (02/03/2024 8:49 AM CDT) SODIUM 134(L) 136 - 145 mmol/L 02/03/2024 9:50 AM CDT [facility] POTASSIUM 3.1(L) 3.5 - 5.1 mmol/L 02/03/2024 9:50 AM T [facility] CHLORIDE 98 98 - 107 mmol/L 02/03/2024 9:50 AM [facility] CO2,TOTAL 23 22 - 29 mmol/L 02/03/2024 9:50 AM [facility] ANION GAP 13 5 - 18 02/03/2024 9:50 AM [facility] GLUCOSE 128(H) 70 - 99 mg/dL 02/03/2024 9:50 AM T [facility] CALCIUM 9.5 8.6 - 10.0 mg/dL 02/03/2024 9:50 AM [facility] BUN 13 6 - 20 mg/dL 02/03/2024 9:50 AM [facility] CREATININE 0.81 0.70 - 1.20 mg/dL 02/03/2024 9:50 AM [facility] BUN/CREAT RATIO 16 10 - 20 9:50 AM [facility] eGFR >90 >90 mL/min/1.7 3m2 02/03/2024 9:50 AM [facility] Comment:As of 2021, eG FR is calculated by the CKD-EPI creatinine equation without race adjustment. ??eGFR can be influenced by muscle mass, exercise, and diet. ??The reported eGFR is an estimation only and is only applicable if the renal function is stable. ALBUMIN 4.6 4.0 - 4.9 g/dL 02/03/2024 9:50 AM [facility] PROTEIN,TOTAL 6.9 6.0 - 8.0 g/dL 02/03/2024 9:50 AM [facility] BILIRUBIN,TOTAL 0.6 0.0 - 1.2 mg/dL 02/03/2024 9:50 AM [facility] ALK PHOSPHATASE 47 40 - 129 IU/L 02/03/2024 9:50 AM [facility] ALT (SGPT) 45 10 - 50 IU/L 02/03/2024 9:50 AM CDT [facility] AST (SGOT) 24 10 - 50 IU/L 02/03/2024 9:50 AM T [facility] Blood BLOOD SPECIMEN / Unknown Venipuncture / Unknown 02/03/2024 8:49 AM CDT 02/03/2024 9:11 AM CDT Didier Summers Labjose ACOUSTICAL LOGGING ENGINEER CHEMISTRY [facility] [address] [place] [address], * (ABNORMAL) CBC WITH AUTO DIFFERENTIAL (02/03/2024 8:48 AM CDT) WHITE BLOOD COUNT 4.8 4.5 - 11.0 thou/cu mm 02/03/2024 12:02 PM [facility] RED BLOOD COUNT 5.73 4.30 - 5.90 mil/cu mm 02/03/2024 12:02 PM [facility] HEMOGLOBIN 15.9 13.5 - 17.5 g/dL 02/03/2024 12:02 PM T [facility] HEMATOCRIT 45.4 37.0 - 53.0 % 02/03/2024 12:02 PM [facility] MCV 79(L) 80 - 100 fL 02/03/2024 12:02 PM T [facility] MCH 27.7 26.0 - 34.0 pg 02/03/2024 12:02 PM T [facility] MCHC 35.0 32.0 - 36.0 g/dL 02/03/2024 12:02 PM [facility] RDW 13.3 11.5 - 15.5 % 02/03/2024 12:02 PM [facility] PLATELET COUNT 275 140 - 440 thou/cu mm 02/03/2024 12:02 PM [facility] MPV 10.2 6.5 - 11.0 fL 02/03/2024 12:02 PM [facility] NRBC 0.0 % 02/03/2024 12:02 PM [facility] ABS NRBC 0.0 thou /cu mm 02/03/2024 12:02 PM [facility] % NEUT 65.4 % 02/03/2024 12:02 PM [facility] % LYMPH 20.1 % 02/03/2024 12:02 PM [facility] % MONO 10.6 % 02/03/2024 12:02 PM [facility] % EOS 2.9 % 02/03/2024 12:02 PM [facility] % BASO 0.6 % 02/03/2024 12:02 PM [facility] % IMMATURE GRAN (METAS,MYELOS,AK OS) 0.4 % 02/03/2024 12:02 PM [facility] ABSOLUTE NEUTROPHILS 3.2 1.7 - 7.0 thou/cu mm 02/03/2024 12:02 PM [facility] ABSOLUTE LYMPHOCYTES 1.0 0.9 - 2.9 thou/cu mm 02/03/2024 12:02 PM [facility] ABSOLUTE MONOCYTES 0.5 <0.9 thou/cu mm 02/03/2024 12:02 PM [facility] ABSOLUTE EOSINOPHILS 0.1 <0.5 thou/cu mm 02/03/2024 12:02 PM [facility] ABSOLUTE BASOPHILS 0.0 <0.3 thou/cu mm 02/03/2024 12:02 PM [facility] ABSOLUTE IMMATURE GRANULOCYTES(MET ,MYELOS,PROS) 0.0 <0.3 thou/cu mm 02/03/2024 12:02 PM [facility] Blood BLOOD SPECIMEN / Unknown Venipuncture / Unknown 02/03/2024 8:48 AM CDT 02/03/2024 9:11 AM CDT Didier Bailey NP HEMATOLOGY Performing Organization Address [facility] Co de Phone Number [facility] [address] [address], * Hemoglobin A1C Screening (02/03/2024 8:48 AM CDT) HEMOGLOBIN A1C SCREENING 5.6 <=6.4 % 02/03/2024 1:29 PM CDT [facility] Blood BLOOD SPECIMEN / Unknown Venipuncture / Unknown 02/03/2024 8:48 AM CDT 02/03/2024 9:11 AM CDT Narrative [facility] - 02/03/2024 1:29 PM CDT ? (<5.7%) ?Normal ? (5.7% to 6.4%) ? Indicates prediabetes ? (>=6.5%) ? Confirms diabetes Falsely low levels may be seen with: Recent Transfusion, Recent Significant Blood Loss, Hemolytic Diseases, or Falsely elevated levels may be seen with: Untreated Anemias, Splenectomy Didier Bailey NP CHEMISTRY Performing Organization Address [facility] Co de Phone Number [facility] [address] [place] [address], from Last 3 Months Advance Directives * Full Code (Latest Code Status on File) Date Activated Date Inactivated Comments 02/02/2024 11:35 AM 02/06/2024 7:40 PM Question Answer Comments Code Status Discussion: Reviewed Preferences Care Teams Mine Foreman Relationship Specialty Start Date End Date Valentin Muñoz MD [address] [facility] [place] [address] PCP - General Internal Medicine 02/27/24
--- OUTSIDE RECORDS SUMMARY | 2024-03-09 10:52 | XMS_ITS | Encounter Summary ---
Author Organization [facility] Address [address] [place] [id number] Care Team Providers Care Preparator Name Role Phone Valentin Muñoz MD Primary Care Provider [phone] Valentin Muñoz MD Unavailable [phone] Encounter Details Date Type Department Care Team (Latest Contact Info) Description 12/07/2023 Travel Social History Tobacco Use Types Packs/Day [...] week 04/04/2023 How often do you attend [facility] or mormon services? More than 4 times per year [...] Answer Date Recorded PHQ-2 Score 0 01/20/2023 [facility] Occupational Stress Questionnaire Answer [...] Info) Description 04/01/2024 2:00 PM CDT Appointment [facility] [address] [place] [id number] Omero Pham MD [facility] [address] [place] [address] 04/01/2024 2:40 PM CDT Office Visit [facility] [place] [address] [place] [phone] Omero Pham MD [facility] [address] [place], [place] [address] 04/09/2024 2:00 PM CDT Office Visit [facility] [address] [place] [phone] Valentin Muñoz MD [address] [place] [address] [place] [phone] Roro Acevedo PA-C [address] [place], [place] [phone] 06/18/2024 12:00 PM CDT Virtual Visit [facility] [place] [address] [place] [phone] Josephine Krishnan PA-C [address] [place], [place] [phone] documented as of this encounter Visit Diagnoses Not on filedocumented in this encounter Care Teams Preparator Relationship Specialty Start Date End Date Valentin Muñoz MD [address] [place] [address] [place] [address] PCP - General Internal Medicine 10/08/10 Valentin Muñoz MD [address] [facility] [place] [address] Assigned PCP 10/03/16 documented as of this encounter
[2024-03-09 10:56] LABS: Basophils Absolute Auto 0.03 K/uL (0.00-0.30); Basophils Percent Auto 0.6 % (0.0-3.0); Eosinophils Percent Auto 4.3 % (0.0-7.0); Hematocrit 39.4 % (37.0-53.0); Hemoglobin* 13.2 gm/dL (13.5-17.5); Immature Granulocytes Abs Auto 0.02 K/uL (0.00-0.30); Immature Granulocytes Pct Auto 0.4 %; Lymphocytes Percent Auto 19.2 % (20-44); Mean Corpuscular HGB Conc 34 gm/dL (32-36); Mean Corpuscular Hemoglobin 27 pg (26-34); Mean Corpuscular Volume 80 fL (80-100); Monocytes Percent Auto 11.2 % (0.0-11.0); Neutrophils Absolute Auto 2.98 K/uL (1.7-7.0); Neutrophils Percent Auto 64.3 % (42.0-72.0); Platelet Count* 335 K/uL (140-440); RDW Coefficient of Variation % 13.1 % (11.5-15.5); Red Blood Count 4.92 m/uL (4.30-5.90); White Blood Count* 4.64 K/uL (4.50-11.00)
[2024-03-09 10:57] LABS: Lactate* 0.8 mmol/L (0.5-1.9)
[2024-03-09 11:01] LABS: Slide Review Reflex No
[2024-03-09 11:13] LABS: Chloride* 103 mmol/L (96-114); Potassium* 3.3 mmol/L (3.6-5.1); Sodium* 137 mmol/L (135-149)
[2024-03-09 11:16] LABS: Creatinine* 0.7 mg/dL (0.5-1.5); Est. Creatinine Clearance* 155.51; Estimated Glomerular Filt Rate 120 ml/min
[2024-03-09 11:17] LABS: Anion Gap 8 mEq/L (7-15); Blood Urea Nitrogen* 11 mg/dL (5-24); Carbon Dioxide* 26 mmol/L (20-32); Glucose* 105 mg/dL (60-115)
--- NOTE | 2024-03-09 11:18 | ED.GENADULT ---
HPI - General Adult General Date Seen: 03/09/24 Chief complaint: Post Op Complication Stated complaint: Surgical site bleeding around groin Time Seen by Provider: 03/09/24 09:48 Source: patient and family Mode of arrival: ambulatory Limitations: no limitations History of Present Illness HPI narrative: The patient is a 38-year-old male here with his for evaluation of some bleeding status post thrombectomy a couple weeks ago at [facility]. His says that he had been having some pain in his calf a few days prior to being seen at the hospital, was ultimately diagnosed with DVT and PE and by her description it sounds like had thrombectomy of both proximal and distal clot via the right groin. He is apparently participating in some partial day program at [place], and 1 day last week had complained of feeling lightheaded, he was therefore seen in the ER and they report that he had a chest x-ray as well as labs that were normal. They come in today because of bleeding at the groin site which started this morning. He does not report any pain there. He denies fevers or chills. He is anticoagulated on Xarelto since his procedure. Denies prior history of DVT or PE, denies other medical history aside from foot surgery. Related Data Home Medications ?Medication ?Instructions ?Recorded ?Confirmed fluoxetine 20 mg capsule 60 mg PO QAM 03/09/24 03/09/24 gabapentin 300 mg capsule 600 mg PO QHS 03/09/24 03/09/24 lisinopril/HCTZ 2 tab PO DAILY 03/09/24 03/09/24 risperidone 1 mg tablet (Risperdal) 1 mg PO DAILY 03/09/24 03/09/24 rivaroxaban 2.5 mg tablet (Xarelto) 2.5 mg PO BID 03/09/24 03/09/24 trazodone 100 mg tablet 100 mg PO DAILY 03/09/24 03/09/24 Allergies Allergy/AdvReac Type Severity Reaction Status Date / Time cephalexin Allergy Mild rash Verified 03/09/24 09:57 Review of Systems Status of ROS: Reports: 10 or more systems reviewed and unremarkable except as noted in History and below PFSH PFSH Social History Smoking Status: Never smoker How often do you have a drink containing alcohol: never How often do you have six or more drinks on one occasion: Never AUDIT-C Alcohol total score: 0 Non-prescribed substance use: denies use Exam Narrative: Exam Narrative: Vital signs reviewed, initial blood pressure reported slightly low but repeat was normal. In general, an alert nontoxic male. He is significantly overweight. Extremities: A right groin there is a small incision, about 1 cm, which has not yet closed. There is some bloody drainage from this area. There is no significant swelling, no significant erythema and appears to be nontender. No pulsatile masses. Skin: Warm and dry otherwise. Affect: Flat Const: Vital Signs, click to edit/add: Vital Signs - 24 hr 03/09/24 09:47 03/09/24 10:48 Temperature 97.4 F L Pulse Rate [Pulse Oximeter] 87 Respiratory Rate 22 Blood Pressure [Ri ght Upper Arm] 91/63 117/55 L Pulse Oximetry 95 Oxygen Delivery Me thod Room Air Documenting provider has reviewed patient's vital signs: yes Course Course ED Course: I looked with the bedside ultrasound, there did appear to be a little bit of a fluid collection, I ultimately elected to do a formal ultrasound to rule out any communication with the vascular system. Prelim on this is that there is a little over 1 cm fluid collection but no issues with the vasculature. Labs thus far show a normal white blood cell count of 4.6, hemoglobin is slightly low at 13.2. Lactate is normal at 0.8. Metabolic panel and CRP are unremarkable. IA consulted briefly with the vascular surgeon on-call through [place], his recommendations were observation at this point. I do not find evidence of infection based on exam or labs. Reviewed reasons to return such as increasing swelling or pain, fevers chills etcetera. I would not expect significant bleeding based on the ultrasound, but may continue to ooze. Continue Xarelto. Vascular surgery clinic should be reaching out to the patient for further instructions and follow-up. Vital Signs Vital signs: Initial Vital Signs Temperature 97.4 F L 03/09/24 09:47 Temperature Source Temporal Artery Scan 03/09/24 09:47 Pulse Rate 87 03/09/24 09:47 Respiratory Rate 22 03/09/24 09:47 Blood Pressure 91/63 03/09/24 09:47 Blood Pressure Mean 72 03/09/24 09:47 Blood Pressure Position Sitting 07/20/24 09:47 Pulse Oximetry 95 03/09/24 09:47 Oxygen Delivery Method Room Air 03/09/24 09:47 Vital Signs Temperature 97.4 F L 03/09/24 09:47 Pulse Rate 87 03/09/24 09:47 Respiratory Rate 22 03/09/24 09:47 Blood Pressure 91/63 03/09/24 09:47 Pulse Oximetry 95 03/09/24 09:47 Oxygen Delivery Method Room Air 03/09/24 09:47 Temperature 97.4 F L 03/09/24 09:47 Pulse Rate 87 03/09/24 09:47 Respiratory Rate 22 03/09/24 09:47 Blood Pressure 117/55 L 03/09/24 10:48 Pulse Oximetry 95 03/09/24 09:47 Oxygen Delivery Method Room Air 03/09/24 09:47 Medical Decision Making Lab Data Labs: Lab Results 03/09/24 Range/Units 10:49 WBC 4.64 (4.50-11.00) K/uL RBC 4.92 (4.30-5.90) m/uL Hgb 13.2 L (13.5-17.5) gm/dL Hct 39.4 (37.0-53.0) % MCV 80 (80-100) fL MCH 27 (26-34) pg MCHC 34 (32-36) gm/dL RDW Coeff of Audrey 13.1 (11.5-15.5) % Plt Count 335 (140-440) K/uL Neut % (Auto) 64.3 (42.0-72.0) % Lymph % (Auto) 19.2 L (20-44) % [place] % (Auto) 11.2 H (0.0-11.0) % Eos % (Auto) 4.3 (0.0-7.0) % Baso % (Auto) 0.6 (0.0-3.0) % Neut # (Auto) 2.98 (1.7-7.0) K/uL Lymph # (Auto) 0.90 (0.90-2.90) K/uL [place] # (Auto) 0.50 (0.00-0.90) K/UL Eos # (Auto) 0.20 (0.00-0.50) K/uL Baso # (Auto) 0.03 (0.00-0.30) K/uL Abs Immat Gran (auto) 0.02 (0.00-0.30) K/uL Imm/Tot Granulo (auto) 0.4 % Sodium 137 (135-149) mmol/L Potassium 3.3 L (3.6-5.1) mmol/L Chloride 103 (96-114) mmol/L Carbon Dioxide 26 (20-32) mmol/L Anion Gap 8 (7-15) mEq/L BUN 11 (5-24) mg/dL Creatinine 0.7 (0.5-1.5) mg/dL Estimated Creat Clear 155.51 Estimated GFR 120 ml/min Glucose 105 (60-115) mg/dL Lactate 0.8 (0.5-1.9) mmol/L Calcium 9.0 (8.4-10.6) mg/dL C-Reactive Protein 0.8 (0.5-1.0) mg/dL Discharge Plan Discharge Clinical Impression: Post-op bleeding Patient Disposition: Home, Self-Care Condition: Stable Additional Instructions: Change dressing as needed, this may continue to lose a little bit over the next day or 2 but I would not expect heavy bleeding. For increasing pain, swelling, redness, fevers or other new symptoms, you should be seen again. Otherwise, the vascular clinic should be reaching out to you to check in as well. Prescriptions: No Action Xarelto 2.5 mg tablet 2.5 mg PO BID gabapentin 300 mg capsule 600 mg PO QHS fluoxetine 20 mg capsule 60 mg PO QAM risperidone [Risperdal] 1 mg tablet 1 mg PO DAILY trazodone 100 mg tablet 100 mg PO DAILY lisinopril/HCTZ 2 tab PO DAILY Follow Up/Referrals: Provider,Not a Local [Primary Care Provider] - Stand Alone Forms: [facility] Info Instructions
[2024-03-09 11:20] LABS: C Reactive Protein* 0.8 mg/dL (0.5-1.0)
== END 2024-03-09 11:49 | disposition home or self-care (01) ==
PROVIDERS: Emergency Provider Emergency Medicine
DX: L76.22 Postprocedural hemorrhage of skin and subcutaneous tissue following other procedure (principal)
CPT/HCPCS: 36415; 76857; 80048; 83605; 85025; 86140; 99283; 99284

== ENCOUNTER 2024-05-12 08:49 | Outpatient (CLI) | payer OTHER, SELFPAY ==
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
--- OUTSIDE RECORDS SUMMARY | 2024-05-26 04:20 | XMS_ITS | Encounter Summary ---
Author Organization [facility] Address [address] [place] [address] Care Team Providers Care Vp Home Health Name Role Phone Unknown, Primary Care Provider Unavailabl e Encounter Details Date Type Department Care Team (Latest Contact Info) Description 05/12/2024 Travel Social History Tobacco Use Types Packs/Day Years Used Date Smoking Tobacco: Never Smokeless Tobacco: Never Alcohol Use Standard Drinks/Week Comments Not Currently [...] as of this encounter Plan of Treatment Not on file documented as of this encounter Visit Diagnoses Not on filedocumented in this encounter Care Teams Vp Home Health Relationship Specialty Start Date End Date Md Lay NO ADDRESS/PHONE/FAX AFFILIATED PCP - General 05/12/24 documented as of this encounter
--- OUTSIDE RECORDS SUMMARY | 2024-05-26 04:21 | XMS_ITS | Clinical Summary ---
Author Organization [facility] Address [address] [place] [address] Care Team Providers Care Herb Doctor Name Role Phone Valentin Muñoz MD Primary Care Provider [phone] Valentin Muñoz MD Unavailable [phone] Omero Grant MD Unavailable [phone] Roro Acevedo PA-C Unavailable [phone] Allergies Active Allergy Reactions Criticality Noted Date Comments Cephalexin Hives Medium 10/14/2011 Medications Medication Sig Dispensed Refills Start Date End Date Status traZODone (DESYREL) 100 MG tablet Take 100 mg by mouth at bedtime 02/06/2024 Active risperiDONE (RISPERDAL) 2 MG tablet Take 1 tablet by mouth at bedtime 02/06/2024 Active FLUoxetine (PROZAC) 40 MG capsule Take 40 mg by mouth daily 02/07/2024 Active gabapentin (NEURONTIN) 600 MG tabletIndications:G AD (generalized anxiety disorder) Take 2 tablets (1,200 mg) by mouth at bedtime 30 tablet 2 02/23/2024 Active amLODIPine (NORVASC) 10 MG tabletIndications:E ssential hypertension Take 1 tablet (10 mg) by mouth daily 90 tablet 3 04/08/2024 Active lisinopril-hydrochl orothiazide (ZESTORETIC) 20-25 MG tablet Take 2 tablets by mouth daily 04/09/2024 Active apixaban ANTICOAGULANT (ELIQUIS ANTICOAGULANT) 5 MG tabletIndications:A cute saddle pulmonary embolism with acute cor pulmonale (H),Acute deep vein thrombosis (DVT) of iliac vein of right lower extremity (H) Take 1 tablet (5 mg) by mouth 2 times daily 180 tablet 1 04/09/2024 Active rivaroxaban ANTICOAGULANT (XARELTO) 20 MG TABS tabletIndications:A cute deep vein thrombosis (DVT) of iliac vein of right lower extremity (H),Acute saddle pulmonary embolism with acute cor pulmonale (H) Take 1 tablet (20 mg) by mouth daily (with dinner) 90 tablet 02/28/2024 05/14/2024 Discontinue d(Alternate therapy) Active Problems Problem Noted Date Diagnosed Date [...] FAITH (obstructive sleep apnea) 03/24/2022 Overview: 03/21/2022 [facility] (410.0 lbs) - AHI 84.9, RDI 86.6, Supine AHI 103.6, REM AHI 76.3, Low O2 62.0%, Time Spent ?88% 143.1 minutes / Time Spent ?89% 188.1 minutes. Hypertension 03/12/2009 Morbid obesity 03/12/2009 Resolved Problems Problem Noted Date Diagnosed Date Resolved Date CARDIOVASCULAR SCREENING; LD L GOAL LESS THAN 160 06/20/2010 04/11/2023 Encounters Date Type Department Care Team Description 05/22/2024 Telephone [facility] [address] [place] [address] Valentin Muñoz MD Forms (Disability benefits - Attending Physician Statement) 05/21/2024 MyC Medical Advice [facility] [address] [place] [address] [address] [place] [phone] Valentin Muñoz MD 05/14/2024 Documentation Only [facility] Anticoagulation Clinic [address] [place] [phone] Samantha Stinson RN Direct Oral Anticoagulant 05/14/2024 [facility] Medical Advice [address] [place] [phone] Valentin Muñoz MD Medication Request 04/26/2024 Documentation Only [facility] [facility] [address] [place] [address] Shawna Redman Shona Prior Auth - Medication (Eliquis 5 mg PA A... 04/10/2024 Documentation Only [facility] [address] [place] [address] [address] [place] [address] Shawna Redman [facility] Prior Authorization (Eliquis PA Approved) 04/09/2024 2:00 PM CDT Office Visit [facility] [place] [address] [address] [place] [phone] Valentin Muñoz MD Bernhoft Bediako, Lucy D, PA-C Acute saddle pulmonary embolism with acute cor pulmonale (H) (Primary Dx); Acute deep vein thrombosis (DVT) of iliac vein of right lower extremity (H); Family history of DVT; Encounter for anticoagulation discussion and counseling 04/09/2024 Travel 04/08/[address] [place] [phone] Valentin Muñoz MD Medication Refill 04/04/2024 Travel 04/01/2024 2:40 PM CDT Office Visit [facility] Vascular [facility] [place] [address] [place] [phone] Omero Grant MD Acute deep vein thrombosis (DVT) of iliac vein of right lower extremity (H) (Primary Dx) 04/01/2024 1:46 PM CDT - 04/01/2024 11:59 PM CDT Hospital Encounter [facility] Imaging [address] [place] [address] Omero Grant MD Acute deep vein thrombosis (DVT) of iliac vein of right lower extremity (H) Discharge Disposition: Home or Self Care 04/01/2024 Travel 03/28/2024 10:30 AM CDT Lab [facility] Laboratory [address] [place] [address] Acute paranoid reaction (H) (Primary Dx) 03/28/2024 Travel 03/27/2024 Documentation Only [facility] Mental Health & Addiction [address] [phone] Jocelyn Shields MD Prior Authorization 03/27/2024 Travel 03/12/2024 12:49 PM CDT - 03/12/2024 11:59 PM CDT Hospital Encounter [facility] Interventional Radiology [address] [place] [phone] Masood Branham MD Non-Fv Credentialed Provider, Radiology Acute deep vein thrombosis (DVT) of iliac vein of right lower extremity (H) Discharge Disposition: Home or Self Care 03/12/2024 12:49 PM CDT - 03/12/2024 3:37 PM CDT Hospital Encounter [facility] Care Suites [address] [place] [phone] Non-Fv Credentialed Provider, Radiology Sneha Kramer APRN ADULT CROSSING GUARD Discharge Disposition: Home or Self Care 03/12/2024 Documentation Only [facility] Anticoagulation Clinic [address] [place] [phone] Isamar Chen RN Direct Oral Anticoagulant 03/11/2024 MyC Medical Advice [facility] Interventional Radiology [address] [place] [phone] Farzaneh Palomares RN 03/11/2024 Orders Only [facility] Vascular [facility] [address] [place] [phone] Minerva Campbell RN Acute deep vein thrombosis (DVT) of iliac vein of right lower extremity (H) (Primary Dx) 03/11/2024 Telephone [facility] [place] [address] [place] [phone] Minerva Campbell RN Clinic Care Coordination - Follow-up 03/04/2024 Orders Only [facility] Vascular [facility] [address] [place] [phone] Minerva Campbell RN Acute deep vein thrombosis (DVT) of iliac vein of right lower extremity (H) (Primary Dx) 02/29/2024 4:02 PM CDT - 02/29/2024 11:59 PM CDT Hospital Encounter [facility] Imaging 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 More than 4 times per year 04/04/2023 Do you belong to any clubs o r organizations such as yazidi groups, unions, fraternal or athletic groups, or [...] Answer Date Recorded PHQ-2 Score 2 02/19/2024 [facility] - [...] slept in a halfway (including now)? No 04/04/2023 Adolescent Education Answer Date Record ed Getting School Help Needed Not on file 06/02 Sex and Gender Information Value Date Recorded Sex Assigned at Not on file Gender Identity Not on file Sexual Orientation Not on file Last Filed Vital Signs Vital Sign Reading Time Taken Comments Blood Pressure 127/84 04/09/2024 1:50 PM CDT Pulse 91 04/09/2024 1:50 PM CDT Temperature 36.7 ??C (98.1 ??F) 04/09/2024 1:50 PM CD T Respiratory Rate 24 02/28/2024 3:43 PM CDT Oxygen Saturation 96% 04/09/2024 1:50 PM CDT Inhaled Oxygen Concentration - - Weight 168.5 kg (371 lb 8 oz) 04/09/2024 1:50 PM CDT Height 182.9 cm (6') 04/09/2024 1:50 PM CDT Body Mass Index 50.38 04/09/2024 1:50 PM CDT Plan of Treatment Upcoming Encounters Date Type Department Care Team (Late st Contact Info) Description 06/18/2024 12:00 PM CDT Virtual Visit [facility] Sleep Center [address] [phone] Josephine Krishnan PA-C [address] [facility] [address] [place] [phone] 07/22/2024 5:00 PM SOLARIS ADMINISTRATOR Appointment [facility] Imaging [address] [place] [phone] Roro Acevedo PAShannaC [address] [place] [phone] 08/01/2024 2:30 PM SOLARIS ADMINISTRATOR Virtual Visit [facility] [address] [facility] [address] [place] [phone] MikalaRoro Davis, PAMickie [address] [place] [address] Health Maintenance Due Date Last Done Comments ANNUAL REVIEW OF HM ORDERS 1984 DEPRESSION ACTION PLAN 1984 HF ACTION PLAN 1984 Pneumococcal Vaccine: Pediatrics (0 to 5 Years) and At-Risk Patients (6 to 64 Years) (1 of 2 - PCV) 1990 YEARLY PREVENTIVE VISIT 04/11/2024 04/11/20, 01/28/2022, 10/09/2020, Additional history exists COVID-19 Vaccine ( season) 2024 08/16/2021, 12/11/2020, 11/20/2020 INFLUENZA VACCINE (#1) 2024 , 08/16/2021, 06/15/2020, [...] 04/11/2033 04/11/2023, 06/06/2012, 05/21/2005, Additional history exists RSV VACCINE (1 - 1-dose 75+ series) 2059 TSH W/FREE T4 REFLEX Completed 01/30/2024, 01/16/2023, [...] Procedure Name Priority Date/Time Associated Diagnosis Comments FACTOR 2 AND 5 MUTATION ANALYSIS Routine 04/09/2024 2:36 PM CDT Acute deep vein thrombosis (DVT) of iliac vein of right lower extremity (H) Acute saddle pulmonary embolism with acute cor pulmonale (H) Family history of DVT PSA TOTAL AND FREE Routine 04/09/2024 2: 36 PM CDT Acute deep vein thrombosis (DVT) of iliac vein of right lower extremity (H) Acute saddle pulmonary embolism with acute cor pulmonale (H) PROTEIN S ANTIGEN FREE Routine 04/09/2024 2:36 PM CDT Acute deep vein thrombosis (DVT) of iliac vein of right lower extremity (H) Acute saddle pulmonary embolism with acute cor pulmonale (H) Family history of DVT PROTEIN C CHROMOGENIC Routine 04/09/2024 2:36 PM CDT Acute deep vein thrombosis (DVT) of iliac vein of right lower extremity (H) Acute saddle pulmonary embolism with acute cor pulmonale (H) Family history of DVT CARDIOLIPIN AYAAN IGG AND IGM Routine 04/09/2024 2:36 PM CDT Acute deep vein thrombosis (DVT) of iliac vein of right lower extremity (H) Acute saddle pulmonary embolism with acute cor pulmonale (H) BETA 2 GLYCOPROTEIN 1 ANTIBODY IGM Routine 04/09/2024 2:36 PM CDT Acute deep vein thrombosis (DVT) of iliac vein of right lower extremity (H) Acute saddle pulmonary embolism with acute cor pulmonale (H) BETA 2 GLYCOPROTEIN 1 ANTIBODY IGG Routine 04/09/2024 2:36 PM CDT Acute deep vein thrombosis (DVT) of iliac vein of right lower extremity (H) Acute saddle pulmonary embolism with acute cor pulmonale (H) ANTITHROMBIN III Routine 04/09/2024 2:36 PM CDT Acute deep vein thrombosis (DVT) of iliac vein of right lower extremity (H) Acute saddle pulmonary embolism with acute cor pulmonale (H) Family history of DVT US LOWER EXTREMITY VENOUS DUPLEX RIGHT Routine 04/01/2024 2:09 PM CDT Acute deep vein thrombosis (DVT) of iliac vein of right lower extremity (H) Procedure Note - Gali Gardner DO - 04/01/2024 2:09 PM CDTThis note is in progress. ULTRASOUND RIGHT LOWER EXTREMITY VENOUS DUPLEX 04/01/2024 2:09 PM CLINICAL HISTORY/INDICATION: Status post right lower extremity venous thrombectomy done on 02/[address] Grant. One-month follow-up. Acute deep vein thrombosis (DVT) of iliac vein of right lower extremity (H). COMPARISON: 02/19/2024 TECHNIQUE: Grayscale, color-flow, and spectral waveform analysis were performed of the deep veins of the right lower extremity FINDINGS: Persistent occlusive deep vein thrombosis in the right femoral and popliteal veins. Resolution of previously seen right external iliac, common femoral, profunda femoral, posterior tibial and peroneal vein deep vein thrombosis. Resolution of thrombus in the right great saphenous vein. The contralateral left common femoral vein demonstrates normal compressibility, spectral waveform, color flow and augmentation. IMPRESSION: 1. Persistent occlusive deep vein thrombosis in the right femoral and popliteal veins. 2. Resolution of deep vein thrombosis in the right external iliac, common femoral, profunda femoral, posterior tibial and peroneal veins. Resolution of superficial thrombus in the right great saphenous vein. 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) BASIC METABOLIC PANEL Routine 02/22/2024 6:24 AM CDT CBC WITH PLATELETS Routine 02/20/2024 5: 33 AM CDT COMPREHENSIVE METABOLIC PANEL Routine 02/20/2024 5:33 AM CDT TSH WITH FREE T4 REFLEX Routine 01/30/2024 10:21 AM CDT Acute paranoid reaction (H) LIPID REFLEX TO DIRECT LDL PANEL Routine 01/30/2024 10:21 AM CDT Acute paranoid reaction (H) from Last 3 Months or Most Recently Relevant to Health Maintenance Results * (ABNORMAL) Factor 2 and 5 mutation analysis (04/09/2024 2:36 PM CDT) [facility] METHODOLOGY The regions of genomic DNA containing the F5 gene mutation R506Q(1691G>A) and the Factor 2 (Prothrombin [id number]) gene mutation were simultaneously amplified using the polymerase chain reaction. The amplified products were digested with restriction endonuclease TaqI and products were analyzed by gel electrophoresis. 04/18/2024 9:36 AM CDT [facility] (LDL) RESULTS Factor V 1691G>A ([place]) RESULTS: Mutation analyzed: 1691G>A Factor V 1691G>A ([place]) Interpretation: PRESENT Factor V 1691G>A ([place]) mutation genotype: G/A FACTOR 2/PROTHROMBIN RESULTS: Mutation analyzed: 59491F>A Factor 2 Mutation Interpretation: ABSENT Factor 2 Mutation genotype: G/G 04/18/2024 9:36 AM CDT [facility] (LDL) Comment:Corrected result: Pr eviously reported as [Previous value contains rich text formatting which cannot be displayed here] (see Result History) on 04/12/2024 at 9:29 AM CDT. 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 The presence of the F5 gene mutation R506Q (1691G>A) mutation is an indication of an increased risk of developing a thrombosis. The extent of this risk is dependent upon several other known thrombophilic risk factors including smoking, obesity and the use of oral contraceptives. Consultation regarding these results is available upon request. Genetic counseling regarding these results is indicated in the evaluation of other family members. (Electronically signed by: ABRIL STEIN MD April 12, 2024 9:29 AM) 04/18/2024 9:36 AM T [facility] (LDL) COMMENTS If a patient is the recipient of an allogeneic bone marrow transplant, this test must be done on a pre-transplant sample or buccal swab. A previous allogeneic bone marrow transplant will interfere with test results. Call the [facility] ([phone]) for instructions on sample collection for these patients. 04/18/2024 9:36 AM T [facility] (LDL) DISCLAIMER This test was developed and its performance characteristics determined by [facility]. It has not been cleared or approved by the FDA. The laboratory is regulated under CLIA as qualified to perform high-complexity testing. This test is used for clinical purposes. It should not be regarded as investigational or for research. A resident/fellow in an accredited training program was involved in the selection of testing, review of laboratory data, and/or interpretation of this case. I, as the senior physician, attest that I: (i) confirmed appropriate testing, (ii) examined the relevant raw data for the specimen(s); and (iii) rendered or confirmed the interpretation(s) . 04/18/2024 9:36 AM CDT [facility] (LDL) FACTOR 2 INTERPRETATION Factor 2 Mutation Interpretation: ABSENT 04/18/2024 9:36 AM CDT [facility] (LDL) Comment:This is an appended report. These results have been appended to a previously final verified report. FACTOR V INTERPRETATION Factor V 1691G>A ([place]) Interpretation: PRESENT(A) 04/18/2024 9:36 AM T [facility] (LDL) Signout Location if Remote Report signed out at: [email or web address] 04/18/2024 9:36 AM T [facility] (LDL) Specimen Description Blood: ACD 04/18/2024 9:36 AM CDT [facility] (LDL) Blood STRUCTURE OF RIGHT HAND / Unknown Venipuncture / Unknown 04/09/2024 2:36 PM CDT 04/09/2024 2:47 PM CDT Roro Craft PA-C LAB - GENOM ICS [facility] (LDL) [facility] [address] [facility], [address] * Cardiolipin Ayaan IgG and IgM (04/09/2024 2:36 PM CDT) Cardiolipin Ayaan IgG Instrument Value <2.0 <10.0 GPL-U/mL 04/10/2024 10:48 AM CDT [facility]/PROT/END O Cardiolipin Antibody IgG Negative Negative 04/10/2024 10:48 AM CDT SPECIALTY CORE/PROT/END O Cardiolipin Ayaan IgM Instrument Value <2.0 <10.0 MPL-U/mL 04/10/2024 10:48 AM CDT [facility]/PROT/END O Cardiolipin Antibody IgM Negative Negative 04/10/2024 10:48 AM CDT SPECIALTY CORE/PROT/END O Blood STRUCTURE OF RIGHT HAND / Unknown Venipuncture / Unknown 04/09/2024 2:36 PM CDT 04/09/2024 2:48 PM CDT Roro Craft PA-C LAB - BLOOD ORDERABLES [facility]/PROT/ENDO [facility]/Prot/Endo [address] [facility], [address] * Beta 2 Glycoprotein 1 Antibody IgM (04/09/2024 2:36 PM CDT) Beta 2 Glycoprotein 1 Antibody IgM <2.4 <7.0 U/mL 04/10/2024 10:47 AM CDT SPECIALTY CORE/PROT/END O Comment:Negative Blood STRUCTURE OF RIGHT HAND / Unknown Venipuncture / Unknown 04/09/2024 2:36 PM CDT 04/09/2024 2:48 PM CDT Roro Yee Rod Craft PA-C LAB - BLOOD ORDERABLES Performing Organization Address City/[facility]/ZIP Co de Phone Number [facility] SPECIAL[facility] CORE/PROT/ENDO [facility] Special[facility] Core/Prot/Endo [address] [facility], [address] * Beta 2 Glycoprotein 1 Antibody IgG (04/09/2024 2:36 PM CDT) Beta 2 Glycoprotein 1 Antibody IgG 1.1 <7.0 U/mL 04/10/2024 10:47 AM CDT [facility] CORE/PROT/END O Comment:Negative Blood STRUCTURE OF RIGHT HAND / Unknown Venipuncture / Unknown 04/09/2024 2:36 PM CDT 04/09/2024 2:48 PM CDT Roro Craft PA-C LAB - BLOOD ORDERABLES Performing Organization Address City/[facility]/ZIP Co de Phone Number [facility] SPECIALTY CORE/PROT/ENDO [facility] Specialty Core/Prot/Endo [address] [facility], [address] * PSA total and free (04/09/2024 2:36 PM CDT) PSA Free 0.1 ng/mL 04/09/2024 9:08 PM CDT [facility] PSA Tumor Marker 0.49 ng/mL 04/09/20 9:08 PM CDT [facility] Comment:No reference ranges have been established for patients under 40 years. PSA Percent Free 20.41 % 04/09/20 9:08 PM CDT [facility] Comment: When Total PSA concentration is in the range of 4.0-10.0 ng/mL Probability of Prostate Cancer: ?Patient Age % Free PSA ? 50 to 59yrs ?60 to 69yrs ?>= 70yrs 0.00 to 10.00% ? 49% ?58% ?65% 10.01 to 18.00% ?27% ?34% ?41% 18.01 to 25.00% ?18% ?24% ?30% > = 25.00% ? 9% ?12% ?16% Blood STRUCTURE OF RIGHT HAND / Unknown Venipuncture / Unknown 04/09/2024 2:36 PM CDT 04/09/2024 2:48 PM CDT Narrative LABORATORY - 04/09/2024 9:08 PM CDT Results are obtained using the [employer] total PSA and free PSA methods on the liliam e801 immunoassay analyzer. Results obtained with different assay methods or kits cannot be used interchangeably. Roro Craft PA-C LAB - BLOOD ORDERABLES LABORATORY [facility] Core Lab [address] [facility], [address] [place] [phone] * Protein S Antigen Free (04/09/2024 2:36 PM CDT) Pathologist [facility] Protein S Antigen Free 89 70 - 148 % 04/11/2024 8:59 AM CDT [facility] COAGULATION Blood STRUCTURE OF RIGHT HAND / Unknown Venipuncture / Unknown 04/09/2024 2:36 PM CDT 04/09/2024 2:47 PM CDT Roro Craft PA-C LAB - BLOOD ORDERABLES Performing Organization Address City/[facility]/ZIP Co de Phone Number [facility] SPECIAL COAGULATION [facility] Special Coagulation [address] [facility] [address], [address] [phone] * Protein C chromogenic (04/09/2024 2:36 PM CDT) Protein C Chromogenic 127 70 - 170 % 04/11/2024 8:59 AM CDT [facility] COAGULATION Blood STRUCTURE OF RIGHT HAND / Unknown Venipuncture / Unknown 04/09/2024 2:36 PM CDT 04/09/2024 2:47 PM CDT Roro KAY-Glenda LAB - BLOOD ORDERABLES Performing Organization Address City/[facility] Co de Phone Number [facility] COAGULATION [facility] [address] [facility] [address] [facility], [address] [phone] * Antithrombin III (04/09/2024 2:36 PM CDT) Antithrombin III 108 85 - 135 % 04/11/20 8:59 AM CDT [facility] COAGULATION Blood STRUCTURE OF RIGHT HAND / Unknown Venipuncture / Unknown 04/09/2024 2:36 PM CDT 04/09/2024 2:47 PM CDT Roro KAY-Glenda LAB - BLOOD ORDERABLES [facility] COAGULATION [facility] Coagulation [address] [facility] [address], [address] [phone] * (ABNORMAL) Prolactin (03/28/2024 10:19 AM CDT) Prolactin 29(H) 4 - 15 ng/mL 03/28/2024 9:49 PM CDT [facility] Blood BLOOD SPECIMEN / Unknown Venipuncture / Unknown 03/28/2024 10:19 AM CDT 03/28/2024 10:19 AM CDT Lab Non-Fv Credentialed Provider LAB - B LOOD ORDERABLES [facility] [address] [facility], [address] [place] [address], [facility] * Hemoglobin A1c (03/28/2024 10:19 AM CDT) Hemoglobin A1C 5.4 0.0 - 5.6 % 03/28/2024 10:30 AM CDT LABORATORY Comment: Normal <5.7% Prediabetes 5.7-6.4% ?? Diabetes 6.5% or higher Note: Adopted from ADA consensus guidelines. Blood BLOOD SPECIMEN / Unknown Venipuncture / Unknown 03/28/2024 10:19 AM CDT 03/28/2024 10:19 AM CDT Lab Non-Fv Credentialed Provider LAB - B LOOD ORDERABLES Performing Organization Address [facility] Co de Phone Number LABORATORY [facility] [place] [facility] [address] [facility] (no room number, 1st floor of clinic) [place] [address] * IR Follow Up Visit Outpatient (03/12/2024 2:12 PM CDT) Narrative [facility] - 03/13/2024 8:30 AM CDT This exam was marked as non-reportable because it will not be read by a radiologist or a [facility] non-radiologist provider. Masood Branham MD IMG IR ORDERABL ES Performing Organization Address City/[facility] Co de Phone Number [facility] * CT Head w/o Contrast (02/29/2024 4:23 [...] described. GRETA CAMPO MD Valentin Muñoz MD [facility] [place] ORDER[place]LES * (ABNORMAL) Basic metabolic panel (02/22/2024 6:24 AM CDT) Sodium 134(L) 135 - 145 mmol/L 02/22/2024 7:31 AM CDT LABORATORY Potassium 3.3(L) 3.4 - 5.3 mmol/L 02/22/2024 7:31 AM T LABORATORY Chloride 101 98 - 107 mmol/L 02/22/2024 7:31 AM T LABORATORY Carbon Dioxide (CO2) 25 22 - 29 mmol/L 02/22/2024 7:31 AM [facility] Anion Gap 8 7 - 15 mmol/L 02/22/2024 7:31 AM T LABORATORY Urea Nitrogen 12.7 6.0 - 20.0 mg/dL 02/22/2024 7:31 AM T LABORATORY Creatinine 0.72 0.67 - 1.17 mg/dL 02/22/2024 7:31 AM CDT LABORATORY GFR Estimate >90 >60 mL/min/1.7 3m2 02/22/2024 7:31 AM [facility] Comment:eGFR calculated us2020 CKD-EPI equation. Calcium 8.2(L) 8.6 - 10.0 mg/dL 02/22/2024 7:31 AM T LABORATORY Glucose 99 70 - 99 mg/dL 02/22/2024 7:31 AM T LABORATORY Blood STRUCTURE OF LEFT HAND / Unknown Venipuncture / Unknown 02/22/2024 6:24 AM CDT 02/22/2024 6:58 AM CDT Alex Hawk MD LAB - BLOOD ORDERABL ES LABORATORY [facility] [address] 1[address] floor, [address] [place] [address], [facility] [phone] * (ABNORMAL) Comprehensive metabolic panel (02/20/2024 5:33 AM [facility]) [facility] Signature Sodium 135 135 - 145 mmol/L 02/20/2024 6:01 AM [facility] Potassium 2.9(L) 3.4 - 5.3 mmol/L 02/20/2024 6:01 AM [facility] Carbon Dioxide (CO2) 24 22 - 29 mmol/L 02/20/2024 6:01 AM [facility] Anion Gap 13 7 - 15 mmol/L 02/20/2024 6:01 AM [facility] Urea Nitrogen 20.6(H) 6.0 - 20.0 mg/dL 02/20/2024 6:01 AM [facility] Creatinine 0.84 0.67 - 1.17 mg/dL 02/20/2024 6:01 AM [facility] GFR Estimate >90 >60 mL/min/1. 73m2 02/20/2024 6:01 AM [facility] Comment:eGFR calculated usin 2020 CKD-EPI equation. Calcium 8.7 8.6 - 10.0 mg/dL 02/20/2024 6:01 AM [facility] Chloride 98 98 - 107 mmol/L 02/20/2024 6:01 AM [facility] Glucose 125(H) 70 - 99 mg/dL 02/20/2024 6:01 AM [facility] Alkaline Phosphatase 53 40 - 150 U/L 02/20/2024 6:01 AM [facility] AST 14 0 - 45 U/L 02/20/2024 6:01 AM [facility] Comment:Reference intervals for this test were updated on 01/30/2023 to more accurately reflect our healthy population. There may be differences in the flagging of prior results with similar values performed with this method. Interpretation of those prior results can be made in the context of the updated reference intervals. ALT 20 0 - 70 U/L 02/20/2024 6:01 AM [facility] Comment:Reference intervals for this test were [...] MD LAB - BLOOD ORDERAB LES LABORATORY [facility] [address] 1[address] floor, [address] [place] [address], [facility] [phone] * CBC with platelets (02/20/2024 5:33 AM CDT) WBC Count 8.5 4.0 - 11.0 10e3/uL [...] MD LAB - BLOOD ORDERAB LES LABORATORY [facility] [address], [address] [place] [address], [facility] [phone] * TSH with free T4 reflex (01/30/2024 10:21 AM CDT) TSH 1.43 0.30 - 4.20 uIU/mL 01/30/2024 8:09 PM CDT [facility] Blood BLOOD SPECIMEN / Unknown Venipuncture / Unknown 01/30/2024 10:21 AM CDT 01/30/2024 10:21 AM CDT Sarah Robles APRN ADULT CROSSING GUARD LAB - BLOOD OR DERABLES [facility] [address] [facility], [address] [place] [address], [facility] * Lipid panel reflex to direct [...] AM CDT 01/30/2024 10:21 AM CDT Narrative U LABORATORY - 01/30/2024 8:09 PM CDT Cholesterol [...] equal to 220 mg/dL Sarah Robles APRN ADULT CROSSING GUARD LAB - BLOOD OR DERABLES LABORATORY [facility] [address] [facility], [address] [place] [address] from Last 3 Months or Most Recently Relevant to Health Maintenance Advance Directives For more information, please contact: [phone] * Full Code (Latest Code Status on File) Date Activated Date Inactivated Comments 02/19/2024 9:52 PM 02/23/2024 6:57 PM All basic and advanced life-sustaining interventions are performed as appropriate Question Answer Comments Code status determined by: Discussion with patie nt/ legal decision maker Care Teams Herb Doctor Relationship Specialty Start Date End Date Valentin Muñoz MD [address] [facility] [place] [address] PCP - General Internal Medicine 10/08/10 Valentin Muñoz MD [address] [place] [address] [place] [address] Assigned PCP 10/03/16 Omero Grant MD [facility] [address] [id number] Assigned Heart and Vascular Provider 04/12/24 Roro Acevedo PA-C [address] [place] [phone] Assigned Cancer Care Provider 04/12/24
--- OUTSIDE RECORDS SUMMARY | 2024-05-26 04:21 | XMS_ITS | Encounter Summary ---
Author Organization [place] Address [address] [place] [address]. [place] [address] Care Team Providers Care Culinary Specialist Name Role Phone Valentin Muñoz MD Primary Care Provider [phone] Valentin Muñoz MD Unavailable [phone] Omero Pham MD Unavailable [phone] Roro Acevedo PA-C Unavailable + [phone] Encounter Details Date Type Department Care Team (Late st Contact Info) Description 05/21/2024 [facility] [address] [place] [address] [address] [place] [address] Valentin Muñoz MD [address] [facility] [place] [address] Social History Tobacco Use Types Packs/Day Years [...] often do you attend chur ch or uatsdin services? More than 4 times per year 04/04/2023 Do you belong to any clubs o r organizations such as voodoo groups, unions, fraternal or athletic groups, or [...] Answer Date Recorded PHQ-2 Score 2 02/19/2024 [facility] - Occupational Stress Questionnaire Answer Date [...] place to sleep or slept in a residential (including now)? No 04/04/2023 Adolescent Education Answer Date Record ed Getting School Help Needed Not on file 06/02 Sex and Gender Information Value Date Recorded Sex Assigned at Not on file Gender Identity Not on file Sexual Orientation Not on file documented as of this encounter Miscellaneous Notes * Telephone Encounter - Valentin Muñoz MD - 05/22/2024 12:27 PM CDT Disability forms - needs a visit. MyChart note sent. documented in this encounter Plan of Treatment Upcoming Encounters Date Type Department Care Team (Late st Contact Info) Description 06/18/2024 12:00 PM CDT Virtual Visit [facility] [place] [address] [place] [phone] Josephine Krishnan PA-C [address] [place] [id number] 07/22/2024 5:00 PM BALLOON MAKER Appointment [facility] [address] [place] [phone] Roro Acevedo PA-C [address] [place] [phone] 08/01/2024 2:30 PM BALLOON MAKER Virtual Visit [facility] [address] [place] [phone] Roro Acevedo, CECI [address] [place] [phone] documented as of this encounter Visit Diagnoses Not on filedocumented in this encounter Additional Health Concerns Assessment Noted Time PHQ-9 Depression Total Score: 24 01/23/ 024 11:07 AM CDT documented as of this encounter Care Teams Culinary Specialist Relationship Specialty Start Date End Date Valentin Muñoz MD [address] [facility] [place] [address] PCP - General Internal Medicine 10/08/10 Valentin Muñoz MD [address] [place] [address] [place] [address] Assigned PCP 10/03/16 Omero Pham MD [facility] [address] [place] [address] Assigned Heart and Vascular Provider 04/12/24 Roro Acevedo, PAShannaC [address] [place], [place] [phone] Assigned Cancer Care Provider 04/12/24 documented as of this encounter
--- OUTSIDE RECORDS SUMMARY | 2024-05-26 04:21 | XMS_ITS | Encounter Summary ---
Author Organization [place] Address [address] [place] [address]. [place] [address] Care Team Providers Care Patent Litigation Associate Name Role Phone Valentin Muñoz MD Primary Care Provider [phone] Valentin Muñoz MD Unavailable [phone] Omero Pham MD Unavailable [phone] Roro Acevedo PA-C Unavailable [phone] Reason for Visit * Reason Onset Date Comments Forms 05/22/2024 Disability benef its - Attending Physician Statement Encounter Details Date Type Department Care Team (Late st Contact Info) Description [facility]/22[facility] [address] [facility] [address] [place] [address] Valentin Muñoz MD [address] [place] [address] [place] [address] Forms (Disability benefits - Attending Physician Statement) Social History Tobacco Use Types Packs/Day Years [...] week 04/04/2023 How often do you attend [facility] or latter day services? More than 4 times per year 04/04/2023 Do you belong to any clubs o r organizations such as bahai groups, unions, fraternal or athletic groups, or [...] Answer Date Recorded PHQ-2 Score 2 02/19/2024 [facility] - Occupational [...] Encounter - Valentin Muñoz MD - 05/22/2024 12:30 PM CDT Disability forms - need a visit to complete. MyChart note sent requesting they schedule a visit. * Telephone Encounter - Lyla Maddox - 05/22/2024 10:36 AM CDT Forms/Letter Request Type of form/letter: Disability benefits - Attending Physician Statement Is Release of Information needed?: Yes Was an ARDEN obtained? Yes Do we have the form/letter: Yes: Dr. Muñoz's inbox Who is the form from? [facility] (if other please explain) Where did/will the form come from? form was faxed in When is form/letter needed by: May 27 How would you like the form/letter returned: Fax : Patient Notified form requests are processed in 5-7 business days:No Could we send this information to you in [employer] or would you prefer to receive a phone call?: NA documented in this encounter Plan of Treatment Upcoming Encounters Date Type Department Care Team (Late st Contact Info) Description 06/18/2024 12:00 PM CDT Virtual Visit [address] [place] [phone] Josephine Krishnan PA-C [address] [place] [phone] 07/22/2024 5:00 PM BATTERY VENT PLUG INSERTER Appointment [facility] [address] [place] [phone] Roro Acevedo PA-C [address] [place], [place] [address] 08/01/2024 2:30 PM BATTERY [employer]ENT PLUG INSERTER Virtual Visit [facility] [address] [place] [phone] Roro Acevedo PA-C [address] [place], [place] [phone] documented as of this encounter Visit Diagnoses Not on filedocumented in this encounter Additional Health Concerns Assessment Noted Time PHQ-9 Depression Total Score: 24 024 11:07 AM CDT documented as of this encounter Care Teams Patent Litigation Associate Relationship Specialty Start Date End Date Valentin Muñoz MD [address] [facility] [place] [address] PCP - General Internal Medicine 10/08/10 Valentin Muñoz MD [address] [facility] [place] [address] Assigned PCP 10/03/16 Omero Pham MD [facility] [address] [place] [address] Assigned Heart and Vascular Provider 04/12/24 Roro Acevedo PA-C [address] [place] [address] Assigned Cancer Care Provider 04/12/24 documented as of this encounter
--- OUTSIDE RECORDS SUMMARY | 2024-05-26 04:21 | XMS_ITS | Referral Summary ---
Author Organization [facility] Address [address] [place] [address]. [place] [address] Care Team Providers Care Terrapin Fisher Name Role Phone Valentin Muñoz MD Primary Care Provider [phone] Valentin Muñoz MD Unavailable [phone] Omero Grant MD Unavailable [phone] Roro Acevedo PA-C Unavailable [phone] Encounters Date Type Department Care Team Description 05/22/[address] [place] [address] Valentin Muñoz MD Forms (Disability benefits - Attending Physician Statement) 05/21/2024 MyC Medical Advice [facility] [address] [place] [address] [address] [place] [address] Valentin Muñoz MD 05/14/[address] [facility] [address] [place] [phone] Samantha Stinson RN Direct Oral Anticoagulant 05/14/2024 MyC Medical Advice [facility] [address] [place] [address] [address] [place] [address] Valentin Muñoz MD Medication Request 04/26/[address] [facility] [address] [place] [phone] Shawna Redman RPH Prior Auth - Medication (Eliquis 5 mg PA A... 04/10/2024 Documentation Only [facility] [address] [facility] [address] [place] [address] Shawna Redman RP Prior Authorization (Eliquis PA Approved) 04/09/2024 Travel 04/09/2024 2:00 PM CDT Office Visit [facility] [address] [facility] [address] [place] [address] Valentin Muñoz MD Bernhoft Bediako, Lucy D, PAShannaC Acute saddle pulmonary embolism with acute cor pulmonale (H) (Primary Dx); Acute deep vein thrombosis (DVT) of iliac vein of right lower extremity (H); Family history of DVT; Encounter for anticoagulation discussion and counseling 04/08/2024 Refill [facility] [address] [facility] [address] [place] [phone] Valentin Muñoz MD Medication Refill 04/04/2024 Travel 04/01/2024 Travel 04/01/2024 2:40 PM CDT Office Visit [facility] [place] [address] [place] [phone] Omero Grant MD Acute deep vein thrombosis (DVT) of iliac vein of right lower extremity (H) (Primary Dx) 04/01/2024 1:46 PM CDT - 04/01/2024 11:59 PM CDT Hospital Encounter [facility] [address] [place] [address] Omero Grant MD Acute deep vein thrombosis (DVT) of iliac vein of right lower extremity (H) Discharge Disposition: Home or Self Care 03/28/2024 Travel 03/28/2024 10:[address] [facility] [id number] [place] [phone] Acute paranoid reaction (H) (Primary Dx) 03/27/2024 Documentation Only [facility] [address] [address] [phone] Jocelyn Shields MD Prior Authorization 03/27/2024 Travel 03/12/[address] [facility] [address] [place] [phone] Isamar Chen RN Direct Oral Anticoagulant 03/12/2024 12:49 PM CDT - 03/12/2024 11:59 PM CDT Hospital Encounter [facility] Interventional Radiology [address] [place] [phone] Masood Branham MD Non-Fv Credentialed Provider, Radiology Acute deep vein thrombosis (DVT) of iliac vein of right lower extremity (H) Discharge Disposition: Home or Self Care 03/12/2024 12:49 PM CDT - 03/12/2024 3:37 PM CDT Hospital Encounter [facility] [address] [place] [phone] Non-Fv Credentialed Provider, Radiology Sneha Kramer APRN SUPERVISOR PARTIAL DENTURE DEPARTMENT Discharge Disposition: Home or Self Care 03/11/2024 MyC Medical Advice [facility] Interventional Radiology [address] [place] [phone] Farzaneh Palomares RN 03/11/[address] [facility] [place] [address] [place] [phone] Minerva Campbell RN Acute deep vein thrombosis (DVT) of iliac vein of right lower extremity (H) (Primary Dx) 03/11/[address] [facility] [address] [place] [phone] Minerva Campbell RN Clinic Care Coordination - Follow-up 03/04/[address] [facility] [address] [place] [phone] Minerva Campbell iron pellet tester deep vein thrombosis (DVT) of iliac vein of right lower extremity (H) (Primary Dx) 02/29/2024 4:02 PM CDT - 02/29/2024 11:59 PM CDT Hospital Encounter [facility] 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 More than 4 times per year [...] Answer Date Recorded PHQ-2 Score 2 02/19/2024 [facility] - Occupational Stress Questionnaire Answer Date [...] Description 06/18/2024 12:00 PM CDT Virtual Visit [facility] [place] [address] [place] [phone] Josephine Krishnan PA-C [address] [place] [phone] 07/22/2024 5:00 PM FLY SETTER Appointment [facility] [address] [place] [phone] Roro Acevedo PAShannaC [address] [place] [address] 08/01/2024 2:30 PM FLY SETTER Virtual Visit [facility] [address] [place] [phone] Roro Acevedo, PAShannaC [address] [place] [address] Procedures Procedure Name Priority Date/Time Associated Diagnosis [...] 5 mutation analysis (04/09/2024 2:36 PM CDT) [facility] METHODOLOGY The regions of genomic DNA containing the F5 gene mutation R506Q(1691G>A) and the Factor 2 (Prothrombin [id number]) gene mutation were simultaneously amplified using the polymerase chain reaction. The amplified products were digested with restriction endonuclease TaqI and products were analyzed by gel electrophoresis. 04/18/2024 9:36 AM CDT [facility] (LDL) RESULTS Factor V 1691G>A ([place]) RESULTS: Mutation analyzed: 1691G>A Factor V 1691G>A ([place]) Interpretation: PRESENT Factor V 1691G>A ([place]) mutation genotype: G/A FACTOR 2/PROTHROMBIN RESULTS: Mutation analyzed: 42819O>A Factor 2 Mutation Interpretation: ABSENT Factor 2 Mutation genotype: G/G 04/18/2024 9:36 AM CDT [facility] (LDL) Comment:Corrected result: Pr eviously reported [...] 12, 2024 9:29 AM) 04/18/2024 9:36 AM CDT [facility] (LDL) COMMENTS If a patient is the recipient of an allogeneic bone marrow transplant, this test must be done on a pre-transplant sample or buccal swab. A previous allogeneic bone marrow transplant will interfere with test results. Call the [facility] ([phone]) for instructions on sample collection for these patients. 04/18/2024 9:36 AM T [facility] (LDL) DISCLAIMER This test was developed and its performance characteristics determined by [facility]. It has not been cleared or [...] the interpretation(s) . 04/18/2024 9:36 AM CDT [facility] (LDL) FACTOR 2 INTERPRETATION Factor 2 Mutation Interpretation: ABSENT 04/18/2024 9:36 AM CDT [facility] (LDL) Comment:This is an appended report. These results have been appended to a previously final verified report. FACTOR V INTERPRETATION Factor V 1691G>A ([place]) Interpretation: PRESENT(A) 04/18/2024 9:36 AM CDT [facility] (LDL) Signout Location if Remote Report signed out at: [email or web address] 04/18/2024 9:36 AM T [facility] (LDL) Specimen Description Blood: ACD 04/18/2024 9:36 AM CDT [facility] (LDL) Blood STRUCTURE OF RIGHT HAND / Unknown Venipuncture / Unknown 04/09/2024 2:36 PM CDT 04/09/2024 2:47 PM CDT Roro Craft PA-C LAB - GENOM ICS [facility] (LDL) Molecular Diagnostics [address] [facility], [address] * Cardiolipin Ayaan IgG and IgM (04/09/2024 2:36 PM CDT) Cardiolipin Ayaan IgG Instrument Value <2.0 <10.0 GPL-U/mL 04/10/2024 10:48 AM CDT SPECIALTY CORE/PROT/END O Cardiolipin Antibody IgG Negative Negative 04/10/2024 10:48 AM CDT SPECIALTY CORE/PROT/END O Cardiolipin Ayaan IgM Instrument Value <2.0 <10.0 MPL-U/mL 04/10/2024 10:48 AM CDT SPECIALTY CORE/PROT/END O Cardiolipin Antibody IgM Negative Negative 04/10/2024 10:48 AM CDT SPECIALTY CORE/PROT/END O Blood STRUCTURE OF RIGHT HAND / Unknown Venipuncture / Unknown 04/09/2024 2:36 PM CDT 04/09/2024 2:48 PM CDT Roro Craft PA-C LAB - BLOOD ORDERABLES UM SPECIALTY CORE/PROT/ENDO Specialty Core/Prot/Endo [address] [facility], [address] * Beta 2 Glycoprotein 1 Antibody IgM (04/09/2024 2:36 PM CDT) Beta 2 Glycoprotein 1 Antibody IgM <2.4 <7.0 U/mL 04/10/2024 10:47 AM CDT SPECIALTY CORE/PROT/END O Comment:Negative Blood STRUCTURE OF RIGHT HAND / Unknown Venipuncture / Unknown 04/09/2024 2:36 PM CDT 04/09/2024 2:48 PM CDT Roro Yee Rod Venancio PA-C LAB - BLOOD ORDERABLES UM SPECIALTY CORE/PROT/ENDO UM Specialty Core/Prot/Endo [address] [facility], [address] * Beta 2 Glycoprotein 1 Antibody IgG (04/09/2024 2:36 PM CDT) Pathologist [facility] Beta 2 Glycoprotein 1 Antibody IgG 1.1 <7.0 U/mL 04/10/2024 10:47 AM CDT UM SPECIALTY CORE/PROT/END O Comment:Negative Blood STRUCTURE OF RIGHT HAND / Unknown Venipuncture / Unknown 04/09/2024 2:36 PM CDT 04/09/2024 2:48 PM CDT Roro Craft PA-C LAB - BLOOD ORDERABLES Performing Organization Address City/[facility] Co de Phone Number UM SPECIALTY CORE/PROT/ENDO UM Specialty Core/Prot/Endo [address] [facility], [address] * PSA total and free (04/09/2024 2:36 PM CDT) Pathologist [facility] PSA Free 0.1 ng/mL 04/09/2024 9:08 PM [...] or kits cannot be used interchangeably. Roro KAY-C LAB - BLOOD ORDERABLES Performing Organization Address City/[facility] Co de Phone Number LABORATORY [facility] Core Lab [address] [facility], [address] [phone] * Protein S Antigen Free (04/09/2024 2:36 PM CDT) Protein S Antigen Free 89 70 - 148 % 04/11/2024 8:59 AM CDT UM SPECIAL COAGULATION Blood STRUCTURE OF RIGHT HAND / Unknown Venipuncture / Unknown 04/09/2024 2:36 PM CDT 04/09/2024 2:47 PM CDT Roro KAY-C LAB - BLOOD ORDERABLES Performing Organization Address City/[facility] Co de Phone Number UM SPECIAL COAGULATION UM Special Coagulation 500 [facility] [address] [phone] * Protein C chromogenic (04/09/2024 2:36 PM CDT) Protein C Chromogenic 127 70 - 170 % 04/11/2024 8:59 AM CDT SPECIAL COAGULATION Blood STRUCTURE OF RIGHT HAND / Unknown Venipuncture / Unknown 04/09/2024 2:36 PM CDT 04/09/2024 2:47 PM CDT Roro Walkerko PA-C LAB - BLOOD ORDERABLES UM SPECIAL COAGULATION UM Special Coagulation [address] [facility] [address] [place] [address] * Antithrombin III (04/09/2024 2:36 PM CDT) Antithrombin III 108 85 - 135 % 04/11/20 8:59 AM CDT SPECIAL COAGULATION Blood STRUCTURE OF RIGHT HAND / Unknown Venipuncture / Unknown 04/09/2024 2:36 PM CDT 04/09/2024 2:47 PM CDT Roro Walkerko PA-C LAB - BLOOD ORDERABLES Performing Organization Address City/[facility]/ZIP Co de Phone Number UM SPECIAL COAGULATION UM Special Coagulation [address] [facility] [address] [place] [address] * (ABNORMAL) Prolactin (03/28/2024 10:19 AM CDT) Prolactin 29(H) 4 - 15 ng/mL 03/28/2024 9:49 PM CDT [facility] LABORATORY Blood BLOOD SPECIMEN / Unknown Venipuncture / Unknown 03/28/2024 10:19 AM CDT 03/28/2024 10:19 AM CDT Lab Non-Fv Credentialed Provider LAB - B LOOD ORDERABLES [facility] LABORATORY [facility] Core Lab [address] [facility], [address] [place] [address], [facility] * Hemoglobin A1c (03/28/2024 10:19 AM CDT) Hemoglobin A1C 5.4 0.0 - 5.6 % 03/28/2024 10:30 AM CDT LABORATORY Comment: Normal <5.7% Prediabetes 5.7-6.4% ?? Diabetes 6.5% or higher Note: Adopted from ADA consensus guidelines. Blood BLOOD SPECIMEN / Unknown Venipuncture / Unknown 03/28/2024 10:19 AM CDT 03/28/2024 10:19 AM CDT Lab Non-Fv Credentialed Provider LAB - B LOOD ORDERABLES LABORATORY [facility] [address] [facility] (no room number, 1st floor of clinic) [place] [address] * IR Follow Up Visit Outpatient (03/12/2024 2:12 PM CDT) Narrative [facility] - 03/13/2024 8:30 AM CDT This exam was marked as non-reportable because it will not be read by a radiologist or a [facility] non-radiologist provider. Masood Branham MD IMG IR ORDERABL ES Performing Organization Address City/[facility]/ZIP Co de Phone Number [facility] * CT [...] described. GRETA CAMPO MD Valentin Muñoz MD [facility] [place] ORDERABLES * (ABNORMAL) Basic metabolic panel [...] >90 >60 mL/min/1.7 3m2 02/22/2024 7:31 AM [facility] LABORATORY Comment:eGFR calculated usin 2020 CKD-EPI equation. Calcium 8.2(L) 8.6 - 10.0 mg/dL 02/22/2024 7:31 AM T LABORATORY Glucose 99 70 - 99 mg/dL 02/22/2024 7:31 AM T LABORATORY Blood STRUCTURE OF LEFT HAND / Unknown Venipuncture / Unknown 02/22/2024 6:24 AM CDT 02/22/2024 6:58 AM CDT Alex Hawk MD LAB - BLOOD ORDERABL ES LABORATORY [facility] [address] 1st floor, [address] [place] [address], [facility] [phone] * (ABNORMAL) Comprehensive metabolic panel (02/20/2024 5:33 AM [facility]) Sodium 135 135 - 145 mmol/L 02/20/2024 6:01 AM [facility] LABORATORY Potassium 2.9(L) 3.4 - 5.3 mmol/L 02/20/2024 6:01 AM [facility] LABORATORY Carbon Dioxide (CO2) 24 22 - 29 mmol/L 02/20/2024 6:01 AM [facility] LABORATORY Anion Gap 13 7 - 15 mmol/L 02/20/2024 6:01 AM [facility] LABORATORY Urea Nitrogen 20.6(H) 6.0 - 20.0 mg/dL 02/20/2024 6:01 AM [facility] LABORATORY Creatinine 0.84 0.67 - 1.17 mg/dL 02/20/2024 6:01 AM [facility] LABORATORY GFR Estimate >90 >60 mL/min/1. 73m2 02/20/2024 6:01 AM [facility] LABORATORY Comment:eGFR calculated usin 2020 CKD-EPI equation. Calcium 8.7 8.6 - 10.0 mg/dL 02/20/2024 6:01 AM [facility] LABORATORY Chloride 98 98 - 107 mmol/L 02/20/2024 6:01 AM [facility] LABORATORY Glucose 125(H) 70 - 99 mg/dL 02/20/2024 6:01 AM [facility] LABORATORY Alkaline Phosphatase 53 40 - 150 U/L 02/20/2024 6:01 AM [facility] LABORATORY AST 14 0 - 45 U/L 02/20/2024 6:01 AM [facility] LABORATORY Comment:Reference intervals for this test were updated on 01/30/2023 to more accurately reflect our healthy population. There may be differences in the flagging of prior results with similar values performed with this method. Interpretation of those prior results can be made in the context of the updated reference intervals. ALT 20 0 - 70 U/L 02/20/2024 6:01 AM [facility] LABORATORY Comment:Reference intervals for this test [...] MD LAB - BLOOD ORDERAB LES LABORATORY [facility] [address] 1st floor, [address] [place] [address], [facility] [phone] * CBC with platelets (02/20/2024 5:33 AM [...] MD LAB - BLOOD ORDERAB LES LABORATORY [facility] [address] 1[address] floor, [address] [place] [address], [facility] [phone] * TSH with free T4 reflex (01/30/2024 10:21 AM CDT) TSH 1.43 0.30 - 4.20 uIU/mL 01/30/2024 8:09 PM CDT [facility] LABORATORY Blood BLOOD SPECIMEN / Unknown Venipuncture / Unknown 01/30/2024 10:21 AM CDT 01/30/2024 10:21 AM CDT Sarah Robles APRN, CNP LAB - BLOOD OR DERABLES [facility] LABORATORY [facility] Lab [address] [facility], [address] [place] [address], [facility] * Lipid panel reflex to direct [...] equal to 220 mg/dL Sarah Robles APRN SUPERVISOR PARTIAL DENTURE DEPARTMENT LAB - BLOOD OR DERABLES Performing Organization Address City/State/[facility] Co de Phone Number LABORATORY [facility] Lab [address] [facility], [address] [address], [facility] from Last 3 Months or Most Recently Relevant to Health Maintenance Advance Directives For more information, please contact: [phone] * Full Code (Latest Code Status on File) Date Activated Date Inactivated Comments 02/19/2024 9:52 PM 02/23/2024 6:57 PM All basic and advanced life-sustaining interventions are performed as appropriate Question Answer Comments Code status determined by: Discussion with patie nt/ legal decision maker Care Teams Terrapin Fisher Relationship Specialty Start Date End Date Valentin Muñoz MD [facility] [place] [address] PCP - General Internal Medicine 10/08/10 Valentin Muñoz MD [address] [place] [address] [place] [address] Assigned PCP 10/03/16 Omero Grant MD [facility] [address] [place] [address] Assigned Heart and Vascular Provider 04/12/24 Roro Acevedo PA-C [address] [place], [place] [address] Assigned Cancer Care Provider 04/12/24
--- OUTSIDE RECORDS SUMMARY | 2024-05-26 04:21 | XMS_ITS | Encounter Summary ---
Author Organization [facility] Address [facility] [place] [address] Care Team Providers Care Garnett Mechanic Name Role Phone Valentin Muñoz MD Primary Care Provider [phone] Valentin Muñoz MD Unavailable [phone] Omero Pham MD Unavailable [phone] Roro Acevedo PA-C Unavailable [phone] Reason for Visit * Reason Onset Date Comments Direct Oral Anticoagulant 05/14/2024 Encounter Details Date Type Department Care Team (Latest Contact Info) Description 05/14/2024 Documentation Only [facility] [address] [place] [phone] Samantha Stinson RN Direct Oral Anticoagulant Social History Tobacco Use Types Packs/Day Years [...] often do you attend chur ch or tenriism services? More than 4 times [...] Date Recorded PHQ-2 Score 2 02/19/2024 [facility] - [...] No 04/04/2023 Housing Stability Vital Sign Answer Dimsa e Recorded In the last 12 months, [...] on file documented as of this encounter Progress Notes * Samantha Stinson RN - 05/14/2024 12:42 PM CDT Anticoagulant Therapeutic Duplication Duplicate orders identified: different medication of the same therapeutic class The duplicate anticoagulant order(s) has been discontinued Active anticoagulant: apixaban (Eliquis) Per 04/09/24 hematology office visit, Xarelto was changed to Eliquis, per patient preference, so patient does not have to take with food (per chart notes, he was not taking xarelto with food). Plan made per [facility] anticoagulation protocol. Samantha Stinson RN 05/14/2024 documented in this encounter Plan of Treatment Upcoming Encounters Date Type Department Care Team (Late st Contact Info) Description 06/18/2024 12:00 PM CDT Virtual Visit [address] [phone] Josephine Krishnan PA-C [address] [place] [phone] 07/22/2024 5:00 PM AUTOMATION/CONTROLS MANAGER Appointment [facility] [address] [place] [place] [phone] Roro Acevedo PA-C [address] [place] [phone] 08/01/2024 2:30 PM AUTOMATION/CONTROLS MANAGER Virtual Visit [facility] [address] [place] [address] Roro Acevedo PA-C [address] [place] [address] documented as of this encounter Visit Diagnoses Not on filedocumented in this encounter Additional Health Concerns Assessment Noted Time PHQ-9 Depression Total Score: 24 024 11:07 AM CDT documented as of this encounter Care Teams Garnett Mechanic Relationship Specialty Start Date End Date Valentin Muñoz MD [address] [facility] [place] [address] PCP - General Internal Medicine 10/08/10 Valentin Muñoz MD [address] [facility] [place] [address] Assigned PCP 10/03/16 Omero Pham MD [facility] [address] [place] [address] Assigned Heart and Vascular Provider 04/12/24 Roro Acevedo, KELLYC [address] [place] [address] Assigned Cancer Care Provider 04/12/24 documented as of this encounter
--- OUTSIDE RECORDS SUMMARY | 2024-05-26 04:21 | XMS_ITS | Encounter Summary ---
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 making that mistake at work , he is severely consumed by the anxiety that he will mess it up again. He s unable to explain his relation with his and states its good, I believe. Shemight visit pt today. Will increase Wellbutrin to 100 mg po qam and po qafternoon to target fatgue and depression. Monitor for worsening anxiety. Increase Risp to 1.5 mg bid to target ruminaive anxiety and obsessive thinking. 05/23/24: Pt was seen in his room. Continues to state he is very very tired. States he tossed andturned all night, but pt was on CPAP and was noted to sleep through the night. Strong body odor. States he has not showered in a few days. States I have no energy. visited and pt states visitwent well. States he wants to get ghome and be with his daughter. We discussed that currently pt has not made much improvement in terms of mood, energy and overall stabilization. Will add Modafanil today to promote wakefulness. Will ask ACM to look at any other causes of excessive fatigue . Denies si, but is not convincing. The patient continues to need, on a daily basis, active inpatient psychiatric treatment for ongoingdiagnostic assessment and treatment of the following symptoms: suicide attempt. The treatment can reasonably be expected to improve the patient's condition. Estimated length of stay is 1-7 days . Diagnoses: S/P suicide attempt MDD, recurrent, severe without psychoses Anxiety disorder NOS FAITH Obesity Plan: Legal: -Status:Step down unit, Voluntary -Precautions: per staff Medical mgmt: -Appreciate Internal Medicine following this patient since admission. I have reviewedthe most recent note and there are no acute medical issues that need intervention at this time Medications: SOB C/o SOB this am, thinks possibly due to anxiety. Deconditioning also contributing? No cough. Lung sounds clear bilaterally. O2 sats stable on room air. WBC normal. Hx of PE. LLE US negative for DVT on admission. No tachycardia. 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 - Monitor O2 sats with Qshift vital signs. - Monitor for respiratory distress - Continue eliquis - Treat anxiety per 2E team. - Non contrast CT chest to r/o PE if increase dyspnea, tachycardia, drop in O2 sats. Hypokalemia Replaced. K this am 3.5 - Encourage high K foods - Monitor intermittently. 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 BP today well controlled at 115/71 without medication. - Continue to hold lisinopril-HCTZ today given excellent BP. Resume as BP indicates. HM will continue to follow. Left chest wound S/p self inflicted stab wound to chest [place] placed on 05/12 per trauma surgery. -Removal in 7-10 days (Reassess 05/19, 7 days for staple removal) FAITH Not on CPAP at home. Untreated FAITH likely contributing to depression and fatigue. -Recommend f/u with PCP to resume CPAP outpatient Hx of PE and DVT Admitted for mechanical thrombectomy of saddle pulmonary embolism and extensive right lower extremity deep and superficial vein thrombus on 02/19/2024. LLE US negative for DVT on admission. Patient has been compliant with Eliqiuis. 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 Deconditioning also contributing? No cough. Lung sounds clear bilaterally. O2 sats stable on room air. WBC normal. Hx of PE. LLE US negative for DVT on admission. No tachycardia. 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 - Monitor O2 sats with Qshift vital signs. - Monitor for respiratory distress - Continue eliquis - Treat anxiety per 2E team. - Non contrast CT chest to r/o PE if increase dyspnea, tachycardia, drop in O2 sats. Hypokalemia Replaced. K this am 3.5 - Encourage high K foods - Monitor intermittently. 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 BP today well controlled at 115/71 without medication. - Continue to hold lisinopril-HCTZ today given excellent BP. Resume as BP indicates. HM will continue to follow. Left chest wound S/p self inflicted stab wound to chest [place] placed on 05/12 per trauma surgery. -Removal in 7-10 days (Reassess 05/19, 7 days for staple removal) FAITH Not on CPAP at home. Untreated FAITH likely contributing to depression and fatigue. -Recommend f/u with PCP to resume CPAP outpatient Hx of PE and DVT Admitted for mechanical thrombectomy of saddle pulmonary embolism and extensive right lower extremity deep and superficial vein thrombus on 02/19/2024. LLE US negative for DVT on admission. Patient has been compliant with Eliqiuis. 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 Sydney Guardado MD * Bunny Malloy RN - 05/23/2024 3:00 AM CDT Nursing Close Observation Note S: Risk for suicide related to the effects of medical condition. Pt uses CPAP at night. B: Patient is displaying lack of insight for maintaining self safety. Alternatives attempted:pt/family education, provide uninterrupted sleep, and purposeful 15min rounding A: Current interventions to address factors influencing behavior include: pt/family education, provide uninterrupted sleep, and purposeful 15min rounding Suicide Risk Reassessed: yes Implement: 4 hour close observation order entered: yes Communicated close observation status to chief nursing executive/tech, charge nurse, and administrative services specialist. Medications reviewed: Yes R: Safety risk behaviors have not changed. Close observation status is 1:1 monitoring with continuous visual observation while using CPAP. * Laurie Wing RN - 05/22/2024 11:08 PM CDT Nursing Close Observation Note S: Risk for suicide related to the effects of medical condition/use of CPAP at bedtime. B: Patient is displaying lack of insight for maintaining self safety. Alternatives attempted:pt/family education A: Current interventions to address factors influencing behavior include: pt/family education and avoid confrontation Suicide Risk Reassessed: yes Implement: 4 hour close observation order entered: yes Communicated close observation status to chief nursing executive/tech and charge nurse. Medications reviewed: Yes R: Safety risk behaviors have not changed. Close observation status is 1:1 monitoring with continuous visual observation continued. * Michael Todd PA-C - 05/22/2024 3:11 PM CDT Interval Trauma Note The patient was seen for stable removal. There were 2 healing wounds to his left upper anterior chest. There were a total of 4 estela noted. The wounds were dry, clean and intact. There was no drainage, oozing, erythema, fluctuance or indurations. No signs of secondary infection noted on today's examination.At this time, the estela were removed without any complication. Okay to leave wounds open to air. Continue to try to keep these areas dry and clean at all times. NANCY Luna PA-C Department of Trauma, Emergency, General Surgery, and Surgical Critical Care * Sydney Guardado MD - 05/22/2024 12:22 PM CDT [facility] Daily Psychiatric Progress Note CC: Follow up on admission for self inficted chest wound , suicide attempt Interim History: The patient's care was discussed with the treatment team and chart reviewed. Per staff Pt asleep in room majority of shift. Out for group and to use phone.Patient slept 6 hours. Continues on 1:1 close obs while using CPAP overnight.Isolative to hs room during free time. Says that he did not sleep well last night and has been perseverating on this throughout the shift. Anxious, received prn Vistaril. Did attend group this morning. Denies thoughts of self harm. Laying in his room, appears tired.Sleeping throughout the shift. Awake for meals. Compliant with scheduled meals. ROS: -Psych as above -Otherwise ROS negative for all including all 10 systems Medications: Current Facility-Administered Medications Medication Dose Route Frequency Provider Last Rate Last Admin acetaminophen (TYLENOL) tablet 500-1,000 mg 1-2 tablet oral Q6H PRN Sydney Guardado MD 1,000 mg at 05/18/24 1614 alum-mag hydroxide-simethicone (MAALOX PLUS) suspension 30 mL 30 mL oral Q6H PRN Sydney Guardado MD apixaban (ELIQUIS) tablet 5 mg 5 mg oral Twice Daily Sarah Bloom MD 5 mg at 05/22/24 0844 [START ON 05/23/2024] buPROPion SR (WELLBUTRIN SR) sustained release tablet 12 HR 100 mg 100 mg oralTwice Daily Sydney Guardado MD calcium carbonate (TUMS) chewable tablet 500 mg 1 tablet oral BID PRN Sydney Guardado MD cholecalciferol (vitamin D3) 25 mcg (1000 unit) tablet 25 mcg 25 mcg oral DAILY Sydney Guardado MD 25 mcg at 05/22/24 0844 diphenhydrAMINE (BENADRYL) tablet 50 mg 50 mg oral Q6H PRN Sydney Guardado MD Or diphenhydrAMINE (BENADRYL) injection 50 mg 50 mg IntraMUSCULAR Q6H PRN Sydney Guardado MD LORazepam (Ativan) injection (conc: 2 mg/mL) 2 mg 2 mg IntraMUSCULAR Q6H PRN Sydney Guardado MD And haloperidoL (HaldoL) injection 5 mg 5 mg IntraMUSCULAR Q6H PRN Sydney Guardado MD And diphenhydrAMINE (BENADRYL) injection 50 mg 50 mg IntraMUSCULAR Q6H PRN Sydney Guardado MD LORazepam (ATIVAN) tablet 2 mg 2 mg oral Q6H PRN Sydney Guardado MD And haloperidoL (HaldoL) tablet 5 mg 5 mg oral Q6H PRN Sydney Guardado MD 5 mg at 05/15/24 1434 And diphenhydrAMINE (BENADRYL) tablet 50 mg 50 mg oral Q6H PRN Sydney Guardado MD haloperidoL (HaldoL) tablet 5-10 mg 5-10 mg oral Q6H PRN Sydney Guardado MD Or haloperidoL (HaldoL) injection 5-10 mg 5-10 mg IntraMUSCULAR Q6H PRN Sydney Guardado MD hydroCHLOROthiazide (HYDRODIURIL) tablet 12.5 mg 12.5 mg oral QAM Shiloh Springer APRN [employer] 12.5 mg at 05/22/24 0844 hydrOXYzine pamoate (Vistaril) capsule 50 mg 50 mg oral Q4H PRN Sydney Guardado MD 50 mg at 05/22/24 1029 lisinopriL (PRINIVIL) tablet 10 mg 10 mg oral DAILY Shiloh Springer APRN [employer] 10 mg at 05/22/24 0845 OLANZapine (ZyPREXA) tablet 10 mg 10 mg oral Q6H PRN Sydney Guardado MD Or OLANZapine (ZYPREXA) vial for injection 10 mg 10 mg IntraMUSCULAR Q6H PRN Sydney Guardado MD polyethylene glycol (MIRALAX) packet 17 g 17 g oral DAILY PRN Sydney Guardado MD risperiDONE (RisperDAL) tablet 1 mg 1 mg oral Twice Daily Sydney Guardado MD 1 mg at 05/22/24 0845 senna-docusate (SENNA-S) tablet 2 tablet 2 tablet oral DAILY PRN Sydney Guardado MD [START ON 05/23/2024] venlafaxine ER (EFFEXOR XR) extended release capsule 24 HR 150 mg 150 mg oral DAILY Sydney Guardado MD zolpidem (Ambien) tablet 10 mg 10 mg oral Q BEDTIME Sydney Guardado MD 10 mg at 05/21/242105 Allergies: Allergies Allergen Reactions Cephalexin Hives and Rash MSE: BP 139/71 Pulse 70 Temp 97.8 ??F (36.6 ??C) Resp 18 Ht 6' (1.829 m) Wt (!) 164.7 kg (363 lb) SpO2 94% BMI 49.23 kg/m?? General appearance: obese, tired Eye Contact: intermittent Speech: lack of inflection, brief responses, and paucity of language Language: Intact Mood: I am so tired Affect: exhausted looking Thought Process: Rate: slowed Content: impoverished Abstraction: concrete Association:focussed on fatigue Thought Content: denies current si, hi or psychoses Insight: limited Judgment: undermined Cognitive Function: Oriented to person, place, time, and situation. Recent Memory: impaired social functioning Remote Memory: intact Fund of Knowledge: average Intelligence: average Attention Span: intact Concentration: intact Musculosketal: Gait: steady; Motor Activity: calm and cooperative Labs: Latest Reference Range & Units 05/12/24 10:24 ALCOHOL (ETOH), PLASMA <3 mg/dL <3 Latest Reference Range & Units 05/14/24 17:22 05/15/24 05:47 Sodium 136 - 145 mmol/L 142 Potassium 3.4 - 5.1 mmol/L 3.7 3.5 Chloride 98 - 108 mmol/L 111 (H) Carbon Dioxide 20 - 31 mmol/L 27 Anion Gap 0.0 - 15.0 mmol/L 4.0 Glucose 74 - 106 mg/dL 95 Glucose, Fasting 50 - <100 mg/dL 100 (H) BUN (Urea Nitro) 9 - 23 mg/dL 15 Creatinine 0.73 - 1.18 mg/dL 0.83 Est GFR (CKD-EPI) >60.00 mL/min/1.73m2 >60.00 Calcium, Serum 8.7 - 10.4 mg/dL 9.7 MAGNESIUM 1.6 - 2.6 mg/dL 2.3 Assessment: Patient is a 38 years old male, presented to the ED after a self- inflicted stab wound to the chest in suicide attempt. Per chart review, patient was at [facility] in March and discharged with [facility] in [facility].Pt reports a few stressors but they do not add upto the acute attempt. Henotes it was an impulsive decision. 05/15/25: Pt was seen in his room. States he did not sleep well. He does not use CPAP at home. He Tiago x o x 3. He notes his mood is depressed. Denies neo paranoia. He again clarfifies that in his line of work, trades can be negative too. We discussed that things to look out for for dc would bemood improvement, improvement in sleep and more clarity of thoughts. Encouraged to attend groups. Denies current si, hi. 05/16/24: Pt was seen on SDU. States he is very fatigued and didn't sleep well. He trialed CPAP a few years ago but then got covid. He does endorse that he wished he . States they moved from a smaller property to a newer one which increased the mortgage from $2000---> $5000/ month. States he is so eorried that there are youger people at work and he is old. Please note pt is only 38 years and when reminded he states but I feel old. He states he is so worried that he will make mistake atwork that he gets consumed with it. Pt states I couldn't bear feeling that way, so I attempted. TSH and Vit D ordered. DENIES TAKING ONLINE, STREET SUPPLEMENTS OR DRUGS. BP is high. Weight gain, fatigue and HTN can be secondary to untreated sleep apnea. Respiratory consult for CPAP trial. ACM consult for HTN. Will trial wellbutrin SR 100 mg po qam to help with depression and fatigue. Will watch id anxiety worsens. 05/20/24: Pt was seen on exam today. He continues to be in bed. States I am so tired. States he does not think he is sleeping well on CPAP. 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 We discussed that team does not feel pt is ready as yet. Slept poorly. Will have ACM review why pt is so fatigued. Will dc Prozac. Start Effexor Xr and incease as totrated. Continue Risperdal. Ambien 10 mg po qhs. HIV, RPR, B12, CORTISOL ordered. 05/21/24: Pt was seen in his room. He notes that he is very tired but notes he may have slept a bit with use of CPAP and ambienn. He has not so far franck any changes in mood or fatigue. He is aware that Effexor Xr was added yesterday but its too soon to see any impacts. Mood is tired. We discussedthat atleat 3 weeks of CPAP continuous use would sstart yeilding benefits in terms of sleep deprivation and fatigue. Pt wants to go home but understands that we need time for stabilization. States hehad no SI today but had thoughts over the weekend. States meeting with his nephew made him realise that he doesn't want to . However states I am just so anxious, I can't shut it off. Increase effexor Xr to 75 mg po qday. HIv and Syphilis is negative. Serum cortisol is wnl Vit d is low. B12 is wnl. Lfts are wnl, TSH is wnl. 05/22/24: Pt continues to note that he is very fatigued. He liked the nasal canula for mask better. He states he was very paranoid in November because there was a request on Fb from an unknown account and he was being blocked rom posting on his account. He thought he was being tracked. He also states that after making that mistake at work , he is severely consumed by the anxiety that he will mess it up again. He s unable to explain his relation with his and states its good, I believe. Shemight visit pt today. Will increase Wellbutrin to 100 mg po qam and po qafternoon to target fatgue and depression. Monitor for worsening anxiety. Increase Risp to 1.5 mg bid to target ruminaive anxiety and obsessive thinking. The patient continues to need, on a daily basis, active inpatient psychiatric treatment for ongoingdiagnostic assessment and treatment of the following symptoms: suicide attempt. The treatment can reasonably be expected to improve the patient's condition. Estimated length of stay is 1-7 days . Diagnoses: S/P suicide attempt MDD, recurrent, severe without psychoses Anxiety disorder NOS FAITH Obesity Plan: Legal: -Status:Step down unit, Voluntary -Precautions: per staff Medical mgmt: -Appreciate Internal Medicine following this patient since admission. I have reviewedthe most recent note and there are no acute medical issues that need intervention at this time Medications: SOB C/o SOB this am, thinks possibly due to anxiety. Deconditioning also contributing? No cough. Lung sounds clear bilaterally. O2 sats stable on room air. WBC normal. Hx of PE. LLE US negative for DVT on admission. No tachycardia. 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 - Monitor O2 sats with Qshift vital signs. - Monitor for respiratory distress - Continue eliquis - Treat anxiety per 2E team. - Non contrast CT chest to r/o PE if increase dyspnea, tachycardia, drop in O2 sats. Hypokalemia Replaced. K this am 3.5 - Encourage high K foods - Monitor intermittently. 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 BP today well controlled at 115/71 without medication. - Continue to hold lisinopril-HCTZ today given excellent BP. Resume as BP indicates. HM will continue to follow. Left chest wound S/p self inflicted stab wound to chest [place] placed on 05/12 per trauma surgery. -Removal in 7-10 days (Reassess 05/19, 7 days for staple removal) FAITH Not on CPAP at home. Untreated FAITH likely contributing to depression and fatigue. -Recommend f/u with PCP to resume CPAP outpatient Hx of PE and DVT Admitted for mechanical thrombectomy of saddle pulmonary embolism and extensive right lower extremity deep and superficial vein thrombus on 02/19/2024. LLE US negative for DVT on admission. Patient has been compliant with Eliqiuis. 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 Deconditioning also contributing? No cough. Lung sounds clear bilaterally. O2 sats stable on room air. WBC normal. Hx of PE. LLE US negative for DVT on admission. No tachycardia. 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 - Monitor O2 sats with Qshift vital signs. - Monitor for respiratory distress - Continue eliquis - Treat anxiety per 2E team. - Non contrast CT chest to r/o PE if increase dyspnea, tachycardia, drop in O2 sats. Hypokalemia Replaced. K this am 3.5 - Encourage high K foods - Monitor intermittently. 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 BP today well controlled at 115/71 without medication. - Continue to hold lisinopril-HCTZ today given excellent BP. Resume as BP indicates. HM will continue to follow. Left chest wound S/p self inflicted stab wound to chest [place] placed on 05/12 per trauma surgery. -Removal in 7-10 days (Reassess 05/19, 7 days for staple removal) FAITH Not on CPAP at home. Untreated FAITH likely contributing to depression and fatigue. -Recommend f/u with PCP to resume CPAP outpatient Hx of PE and DVT Admitted for mechanical thrombectomy of saddle pulmonary embolism and extensive right lower extremity deep and superficial vein thrombus on 02/19/2024. LLE US negative for DVT on admission. Patient has been compliant with Eliqiuis. 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 Sydney Guardado MD * Bunny Malloy RN - 05/22/2024 3:00 AM CDT Nursing Close Observation Note S: Risk for suicide related to the effects of medical condition. Pt uses CPAP at night. B: Patient is displaying lack of insight for maintaining self safety. Alternatives attempted:pt/family education, provide uninterrupted sleep, and purposeful 15min rounding A: Current interventions to address factors influencing behavior include: pt/family education, provide uninterrupted sleep, and purposeful 15min rounding Suicide Risk Reassessed: yes Implement: 4 hour close observation order entered: yes Communicated close observation status to chief nursing executive/tech, charge nurse, and administrative services specialist. Medications reviewed: Yes R: Safety risk behaviors have not changed. Close observation status is 1:1 monitoring with continuous visual observation while using CPAP. * Alex Griggs RN - 05/21/2024 11:00 PM CDT Nursing Close Observation Note S: Risk for suicide related to the effects of medical condition/CPAP at night. B: Patient is displaying lack of insight for maintaining self safety. Alternatives attempted:pt/family education A: Current interventions to address factors influencing behavior include: pt/family education, avoid confrontation, and set limits Suicide Risk Reassessed: yes Implement: 4 hour close observation order entered: yes Communicated close observation status to charge nurse. Medications reviewed: Yes R: Safety risk behaviors have not changed. Close observation status is 1:1 monitoring with continuous visual observation. * Guillermo Benitez - 05/21/2024 3:53 PM CDT Summary: Met with Qi as a follow up to his length of stay. Qi stated that he was very tired and was having a very difficult time sleeping. He reflected on how he is having a difficult time with spiraling thoughts. He talked a little about his daughter and how he enjoys playing sports with her. Heseemed appreciative of spiritual care support. Plan: Further spiritual care available upon request. * Navin Cordova PsyD, LP - 05/21/2024 3:20 PM CDT Group Therapy: Date of Service: 05/21/2024 Start Time: 1100 Stop Time: 1150 Number of Participants = 4 Diagnosis: Suicidal ideations Physician: Sydney Guardado MD Mental Status Exam (MSE) Mood: Sad Affect: Congruent Psychomotor Behavior: Within normal limits Appearance: Casual Orientation: Person, place, and time. Memory and Concentration: Within normal limits Speech: Normal rate, tone, and volume Eye Contact: Within normal limits Thought Processes: Goal directed, linear Description and Scope of Group: CBT based group with focus on learning skills to cope with mental illness. Today's Topic or Activity: Reviewed principles of assertiveness: what it is, why its important. discussed factors to consider in assertiveness: the relationship; what you want; what you don't want; integrity. Used example to contrast passive versus aggressive communication and how assertiveness strikes a balance. Reviewed barriers to assertiveness. Discussed the role of anger , contrasting healthy versus unhealthy anger, repression of anger, tipsfor expressing anger. Patient's Response to Current Intervention: presented as engaged as evidenced by visually attendingto speakers and handouts, and offering verbal participation. Progress toward Short-Term Goals and/or Treatment Plan: displays progress by attending group therapy and by offering meaningful participation. Provider's Impression of Current Status: presented as engaged throughout and was an active participant. There were no safety or boundary concerns. No report of suicidal ideation, plan and/or means was shared by patient during group. Plan: Oxyacetylene Welder will continue to offer group therapy during hospitalization. Invitations to group therapy are contingent on behavior. Unsafe or disruptive behavior will result in being held back from group, or being asked to leave group. Encounter performed and documented by Navin Cordova PsyD, LP * Lucretia Quinones PA-C - 05/21/2024 12:44 PM CDT HOSPITALIST DIVISION PROGRESS NOTE This is not a billable visit, chart review only. Admit date: 05/12/2024 Length of stay: 8 days ASSESSMENT & PLAN Qi Beckford is a 38 y.o. male with PMH PE, DVT, HTN, FAITH, CAROLE, depression, SI who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 well. They are hoping to have that addressed because he seems to have sleep apnea and his decline is always partnered with poor or decreased need for sleep. After [facility], Qi attended the PHP program in [facility] for three weeks, then returned to work fulltime right away, with no transition period. Shiloh reported that after the first two weeks back to work he started to have stomach problems and was out sick about a week and a half ago now. Shiloh noted that Qi has lost weight and asked if he eats regularly, he shook his head that he does. There has been some changes in their household as they moved to a new home, closer to Shiloh, during his last hospitalization. They have a pre-teen at home which comes with some stress and conflict. Also discussed was concern for recent DVT and ongoing medications required for that condition. Theyare concerned that he may have sleep apnea and wonder if that could be the cause of his lack of sleep. GOAL OF CRISIS SERVICES: This crisis assessment was deemed to be medically necessary due to the following life threatening or complex factors: Identify and alleviate any emotional disruptions, maladaptive behavioral patterns, and contributing / exacerbating factors and to identify a safe care plan through treatment and/or disposition planning. CLINICAL IMPRESSION AND SUMMARY The patient's mental health and/or chemical health concerns have been causing clinically significant distress which brought them in to the Emergency Department. An [facility] consult was ordered by the medical provider to assess, evaluate, and make recommendations for appropriate level of care. Clinical Impression: Qi presented to the ED for suicide attempt. His 11 year old daughter found him in the bathtub with lacerations to his chest. There have been at least 2 hospitalizations and PHP in the past year, per sister, this all started happening with the episode last year. He presents with hopelessness and helplessness, flat affect, and somewhat apathetic. He is agreeable to inpatient psychiatric admission, however remains apathetic about any treatment interventions. RISK ASSESSMENT Area(s) of Risk: suicidal ideation, self-harm, inability to care for self Level of Risk: High Intent to Act: No Plan to Act: No Lethal Means to Act (if applicable): patient denies intent or plan at this time and feels safe in the hospital. He would have access to lethal means in the community. Risk Factors: mental illness , current ideation and/or history of ideation, previous suicide attempt, hopelessness, recent loss, financial stress, relationship problems such as a break-up, violence and/or neglect Protective Factors: Positive social support Family supports Children in the home Sufficient problem-solving skills Coping Skills Utilized by Patient to Mitigate Risk: unable to engage in safety planning or coping skills discussion at this time. Safety Plan Completed: Not at time of this assessment. Formal safety plan will be offered and completed at discharge DIAGNOSIS Visit Diagnosis: suicide attempt History: Anxiety Depression suicidal ideation COLLATERAL career agent partnered with the ED care team and reviewed [facility] medical records (including available Care Everywhere records) to gather additional information used in the assessment process. Additionally, field underwriter reached out to patient's , Tatyana, . They provided the following collateral information: Tatyana reported feeling unsure about what questions she had or what was needed for her and her daughter. She indicated [facility] was going to have their mental health social studies teacher follow up with them. Oxyacetylene Welder provided update on dispo and placement recommendations, provided [facility] number for callback with questions, and assured her [facility] will provide update on placement. CLINICAL PRESENTATION AND SOCIAL HISTORY Current Symptom Presentation Depressive Symptoms: Patient reports symptoms of depression, including depressed mood, anhedonia, insomnia, hopelessness, sense of helplessness, suicidal attempt. Patient reports that these symptoms are recurrent/episodic. Anxiety Symptoms: Patient denies symptoms of anxiety. Bipolar Symptoms:Patient denies symptoms of cindi. Psychotic Symptoms: None evident and Patient denies psychotic symptoms. Substance Use Patient denies a history of substance use and/or abuse. Current substance use: No, Alcohol: Patient denies drinking alcohol. Previous CD treatments: No Other Addictive Behavior: Patient denies engaging in other addictive behaviors. Past Psychiatric History Patient reports a history of psychiatric hospitalization(s). Most recent hospitalization occurred in [facility] [id number]. Social History Current Living Arrangement: lives with spouse, lives with child/children, lives with family Family/Children: Patient is . Patient has one child. Social Supports: Patient describes current level of support as inadequate. Abuse/Trauma/Neglect: denies a history of trauma Recent Losses: change in mental health status in past year, recently moved Financial/basic needs: employment, family support Education: completed technical school Legal: Patient denies having a legal history Service: No MENTAL STATUS EXAM Orientation: x3 Oriented to person, place, and time General Appearance: Disheveled Dress: Appropriate Interview Behavior: Appropriate Passive Withdrawn Mood: indifferent depressed Affect: Blunted Motor Activity: Unremarkable Attention/Concentration: Variable Speech: Hesitant Soft Memory: Not Assessed Insight: Fair Judgment/Impulse Control: Fair Thought Process: Unremarkable Thought Content: Appropriate Perception: Unremarkable COMM[employer]ITY [employer] Psychiatrist: Sarah outpatient psychiatric security nurse Therapist: none current, previous therapist named Benitez for two sessions only Case Management: none current Primary Care Physician: [facility] Program: previous [facility] Commitment: None Guardian: No SCOPE OF SERVICES PROVIDED Clinical Intervention(s) and/or Therapeutic Technique(s) Utilized: rapport building, supportive listening, risk assessment , brief crisis psychotherapy, mental health assessment, psychoeducation, resource/ referrals Reason for Interventions: to determine need and level of care Patient's Response: Patient was receptive to intereventions Addressed Lethal Means (if applicable): patient denies intent or plan, does not have access to lethal means in the hospital. Resources/Referrals Provided: referred for inpatient psych admission RECOMMENDATIONS Clinical Recommendation: inpatient psychiatric hospitalization- ITC or high acuity placement. This is recommended for medication evaluation, diagnostic evaluation, access to treatment, ongoing assessment and observation, structured environment for safety of self 1:1 Monitoring: patient agrees to safety in the hospital and is not currently in a video monitored room. Patient is currently on a 1:1. PLAN OF CARE [facility] will: inpatient psychiatric bed search [facility] documented in this encounter Nursing Notes * Milli Henry RN - 05/25/2024 10:51 PM CDT Problem: Coping - Ineffective, Individual Goal: Demonstrates/verbalizes positive coping patterns 05/25/2024 2251 by Milli Henry RN Outcome: Not met this shift 05/25/2024 1317 by Milli Henry RN Outcome: Not met this shift Walked the hallway many times before and after dinner. Wound care done to nose. Flat affect, looks angry, doesn't always reply when spoken to. Medication compliant. * Milli Henry RN - 05/25/2024 1:17 PM CDT Problem: Coping - Ineffective, Individual Goal: Demonstrates/verbalizes positive coping patterns Outcome: Not met this shift Angry look on his face this morning. Didn't reply when field underwriter asked if the new CPAP mask fit betteron his nose. Walked the halls. No interaction with peers. Wound care for nose completed. Attended PM group. * Balbina Villarreal RN - 05/25/2024 5:38 AM CDT Pt slept around 4 hours this shift. Declined wanting his c-pap around 0530 and was awake. 1:1 discontinued and cpap removed. * Corky Vega RT - 05/25/2024 1:33 AM CDT Pt placed on hospital CPAP Machine Type: V30 NPPV Interface: Under the Nose Mask/Prong Size: C O2 LPM: 0 LPM RT will continue to follow. Refer to flowsheet for additional information if needed. * Milli Henry RN - 05/24/2024 10:16 PM CDT Problem: Coping - Ineffective, Individual Goal: Demonstrates/verbalizes positive coping patterns Outcome: Not met this shift Walked the hallway many times before dinner. After dinner isolated to bed, didn't spend any time inthe lounge. Wound care done to nose. Medication compliant. * Kristie Carver RN - 05/24/2024 1:35 PM CDT P: Ineffective Coping. A: Pt has been up and in the milieu. He did question what medications were in his medication cup this morning and they were reviewed with him. Later he again was asking about his medications and whathad been discontinued, so offered to give him his medication list. Wrote out indications of each medication on the side of the list and included administration times. Pt reviewed the medications withwriter and was attentive during teaching. Pt allowed field underwriter to view his chest wounds, they are currently open to air. They both are scabbed and healing well, no drainage. His wrist lacerations are mostly healed, the right one still has some scabbing present. His nose wound is open to air, but open as it's new and pt states this is the only wound that is currently painful. He did talk about his attempt and the time leading up to this. He states that he just couldn't stop worrying about everything, including finances, but there's a hundred k in the bank account, so that doesn't even make sense. He states he hadn't been able to sleep well during this time and the worrying made it worse. He states he's never going to do that again, especially after everything everyone has said to him since that time. He believes he gets to go home next Monday. He denies thoughts to harm himself and has been denying this for several days. I: Encouragement and support given. Discontinue suicide protocol. R: Pt has been attending therapies. He reports that he continues to sleep poorly at night, but withthe addition of the stimulant, he is feeling less tired during the day. He does think that he will sleep much better at home, as he has a sleep number bed. * Alex Griggs RN - 05/24/2024 5:18 AM CDT 1:1 close obs for CPAP at night. To the bathroom x1. Slept 6 hours. Awake at 05[address]. Noted to have a suspected pressure injury to roof of nose from wearing the CPAP. Consult made toskin team. * Jennifer Capellan RT - 05/24/2024 12:09 AM CDT Patient placed on hospital cpap for noc. Skin: Pressure injury found on bridge of nose when going to change patient mask. RN notified. * Zaida Herzog RN - 05/23/2024 10:05 PM CDT Problem: Self/Other - Directed Violence - Risk of Goal: Will not harm self while hospitalized Outcome: Met this shift Problem: Coping - Ineffective, Individual Goal: Demonstrates/verbalizes positive coping patterns Outcome: Met this shift Walking the martinez, I've walked 150 laps today. Feels, fine. Denies SI. Received mail of prayers from his Mom. Spoke on the phone to his . Good PO eating in the dining room. Medication compliant. No symptoms of COVID-19. * Dolly Longo LICSW - 05/23/2024 2:59 PM CDT Problem: Discharge Planning Goal: Discharge plans addressed Outcome: Ongoing BEHAVIORAL HEALTH SOCIAL WORK DAILY PROGRESS NOTE Date of Admission: 05/12/2024 Current Barriers to Discharge: current presentation of clinical symptoms requiring ongoing monitoring and stabilization Patient Progress Towards Treatment Goals & Discharge: The patient is medication compliant and participating in group therapies. Is seen walking in the martinez but continues to have a flat affect. Has been using the CPAP but endorses feeling tired. Care Coordination Provided: Reviewed, discussed with MD, completed IDR. Discharge Plan: return home with undetermined outpatient follow-up. Discharge Date: TBD ERMELINDA Harrison * Kimmy Delaney OT - 05/23/2024 1:22 PM CDT BEHAVIORAL HEALTH OCCUPATIONAL THERAPY PROGRESS NOTE General Information: Name: Qi Post : 1985 Visit Type: Progress Note (Last progress note on 05/16) Seen In: OT Clinic Functional Presentation: Appearance: (Personal apperance is improving) Affect/Mood: Flat, Depressed, Appropriate for Context Thought Process: Oriented, Able to Abstract Concentration: Number of Minutes Able to Concentrate:, Can Follow Verbal/Written or Demonstrated Directions (35) Participation: Joins Group with Prompting, Participates Participation Level: Actively, Expresses Feelings Attitude/Interpersonal: Pleasant, Cooperative, Compliant Social Behavior: Interacts Minimally (Noted that pt initiated greeting therapist today for the first time) Communication Skills: Has Difficulty Identifying Feelings/Needs Eye Contact Description: Good Work Skills: Works Independently, Learns Quickly Leisure Skills: Is Able to Identify Leisure Interests/Hobbies (ID walking the halls as a means to help manage his stress and anxiety while in the hospital.) Programming This Period: Groups Attended Include: Media, Life Skills, Exercise, Wellness OT Group Attendance: Attends With Prompts, Variable Attendance (Attendance has been improving) OT Group Participation and Performance: Active, Minimally Engaged, Accepts Education/Recommendations, Demonstrates Linear Thinking, Demonstrates Ability, Works Independently 1:1 OT Sessions: ADL Performance on Unit: Plan for Next Sessions: Treatment Plan: As appropriate, Patient will be offered OT group and 1:1 sessions during length of hospital stay to address OT goals listed below. Interventions: Successful Therapeutic Interactions: Alert and Prompt Patient Before Each Session and Provide Goal-Directed and Meaningful Activities to Promote Interest and Participation, Provide Goal-Directed Activities to Facilitate Improved Attention Span and to Promote Interest/Motivation, Provide Opportunities for Successful Experiences, Provide Therapeutic Activities and a Therapeutic environment for Occupational Engagement, Provide Opportunities to Develop Health Management Skills, Provide Opportunities in Media Group Life Skills Discussion Topics: Positive Feedback Given: Media Group Opportunities: Following Directions, Completing a Task, Social Interaction Thought Process Goals: Increased Concentration as Demonstrated By: Number of Minutes Focusing on Task: Outcome: Ongoing (Pt's attendance has improved however, attention span has been limited by symptomsof feeling tired.) Mood Goals: Stabilization in Anxiety as Demonstrated By: Increased Interaction with Staff/Peers, Increased Participation in Unit Activities, Increased Interest and Participation in Leisure/Social Activities Outcome: Ongoing (Pt is visible on the unit and has been walking in the halls in attempt to get exercise in.) Stabilization in Depression as Demonstrated By:: Presents with Brighter Affect, Presents with Animated and Spontaneous Affect, Presents with Improved Eye Contact Outcome: Ongoing (Affect remains flat with depressed mood.) Coping Skills Goals: Improved Coping and Health Management Skills as Demonstrated By: Identifies >2 Relaxation/CopingTechniques to Manage Symptoms/Condition, Identifies >2 Hobbies or Leisure Interests to Pursue, Identifies Components of Safety/Wellness Plan to Implement Upon Discharge Outcome: Ongoing Assessment/Plan/Recommendations: OT Assessment Results: Impaired Mood, Impaired Insight/Judgement, Impaired Health Management Skills Discharge Support Recommendations: Recommend Continued Health Management Skills Training at Next Level of Care Post Acute Therapy Needs: To Be Assessed: * Alison Collazo RN - 05/23/2024 1:19 PM CDT Problem: Self/Other - Directed Violence - Risk of Goal: Will not harm self while hospitalized Outcome: Met this shift Isolative to his room this morning, awake for breakfast. Denies thoughts of self harm. Focused on not sleeping well. 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 Laying in bed staring at the ceiling. Started on provigil. After lunch he can be seen walking the halls. When asked how he is doing he tells me that he feels, better. He is compliant with scheduled medications. Attending groups. Denies symptoms ofcovid. * Bunny Malloy RN - 05/23/2024 6:27 AM CDT Problem: Discharge Planning and Health Maintenance Goal: Verbalizes/demonstrates positive health maintenance behaviors 05/23/2024 0620 by Bunny Malloy, YOLIS Outcome: Met this shift Patient slept 6 hours. Continues on 1:1 close obs while using CPAP overnight. No signs/symptoms of Covid noted/reported. * Olamide Kumar, RT - 05/23/2024 1:53 AM CDT 2301 Helped pt put on cpap for the night. * Laurie Wing RN - 05/22/2024 9:32 PM CDT Problem: Coping - Ineffective, Individual Goal: Demonstrates/verbalizes positive coping patterns Outcome: Met this shift He is isolative to room majority of the evening, denies suicidal ideation, report being tired and needing rest, but did come out for dinner, encouragement provided. visited and it went well. He is compliant with medications. * Alison Collazo RN - 05/22/2024 11:30 AM CDT Problem: Self/Other - Directed Violence - Risk of Goal: Will not harm self while hospitalized Outcome: Met this shift Isolative to hs room during free time. Says that he did not sleep well last night and has been perseverating on this throughout the shift. Anxious, received prn Vistaril. Did attend group this morning. Denies thoughts of self harm. Laying in his room, appears tired. Sleeping throughout the shift. Awake for meals. Compliant with scheduled meals. * Bunny Malloy RN - 05/22/2024 6:14 AM CDT Problem: Discharge Planning and Health Maintenance Goal: Verbalizes/demonstrates positive health maintenance behaviors Outcome: Met this shift Patient slept 6 hours. Continues on 1:1 close obs while using CPAP overnight. No signs/symptoms of Covid noted/reported. * Sylvie Sarabia RN - 05/21/2024 6:41 PM CDT Problem: Self/Other - Directed Violence - Risk of Goal: Will not harm self while hospitalized Outcome: Met this shift Problem: Coping - Ineffective, Individual Goal: Demonstrates/verbalizes positive coping patterns Outcome: Met this shift Pt asleep in room majority of shift. Out for group and to use phone * Dolly Longo, [facility] - 05/21/2024 12:42 PM CDT BEHAVIORAL HEALTH SOCIAL WORK DAILY PROGRESS NOTE Date of Admission: 05/12/2024 Current Barriers to Discharge: current presentation of clinical symptoms requiring ongoing monitoring and stabilization Patient Progress Towards Treatment Goals & Discharge: The patient is medication compliant but has limited group attendance. He continues to endorse being tired despite starting on a CPAP. A consult has been placed for patient to see the psychologist. Care Coordination Provided: Reviewed chart; discussed plan with MD Discharge Plan: return home and follow up with outpatient providers such as therapist and psychiatrist Discharge Date: ERMELINDA Harrison * Stacy Collado RN - 05/21/2024 9:19 AM CDT Problem: Coping - Ineffective, Individual Goal: Demonstrates/verbalizes positive coping patterns Outcome: Not met this shift Spends much of the day resting in bed. He is polite and more open to talking to field underwriter today. He continues to state he is not getting much sleep. Oxyacetylene Welder asked if he found the CPAP mask uncomfortable and he said yes. Oxyacetylene Welder called RT and they plan to come offer him a different option that would cover his nose instead of his mouth. Nasal mask placed on his CPAP for tonight. He was pleased with this. Denies suicidal ideation. Compliant with scheduled medications. * Natalie Monteiro RN - 05/21/2024 6:03 AM CDT Problem: Discharge Planning and Health Maintenance Goal: Verbalizes/demonstrates positive health maintenance behaviors Outcome: Met this shift Patient slept >6 hours. Continues on 1:1 close obs while using CPAP overnight. No signs/symptomsof Covid noted/reported. * Justin Dominguez RT - 05/21/2024 12:48 AM CDT Pt seen on CPAP Machine Type: V30 NPPV Interface: Full Mask Mask/Prong Size: Medium O2 LPM: 0 LPM Skin assessment: WDL RT will continue to follow. Refer to flowsheet for additional information if needed. * Charisma Casey RN - 05/20/2024 9:22 PM CDT Problem: Anticoagulation, pharmacologic therapy Goal: Adheres to therapeutic regimen Outcome: Met this shift Pt is complaint with medication; took Eliquis for hx. Of DVT. Pt was in his room through out the shift. No acute changes noted on this shift. * Stacy Collado RN - 05/20/2024 12:48 PM CDT Problem: Coping - Ineffective, Individual Goal: Demonstrates/verbalizes positive coping patterns Outcome: Not met this shift Pt reports that he feels like I'm getting sick. He specified that his throat hurts and he is verytired. COVID-19 test was negative. Pt's sister called and reported he has a history of low potassium and is inconsistent in taking it at home. This was communicated to MD. Pt's sister also requested that he be able to use a nose pillow for his CPAP as he historically does not like the face mask. Ptis guarded and depressed on interaction. Denies suicidal ideation. Compliant with scheduled medications. * Bunny Malloy RN - 05/20/2024 6:10 AM CDT Problem: Discharge Planning and Health Maintenance Goal: Verbalizes/demonstrates positive health maintenance behaviors Outcome: Met this shift Pt slept 6+ hours. Remained on 1:1 close obs while using CPAP and tolerated well overnight. No concerns. No signs/symptoms of Covid noted/reported. * Miladis Hui RN - 05/20/2024 6:01 AM CDT Problem: Discharge Planning and Health Maintenance Goal: Verbalizes/demonstrates positive health maintenance behaviors Outcome: Met this shift Pt remained on 1:1 close obs while using CPAP, tolerated well through the shift. Slept for 6+ hours. No S/SX of Covid reported or noted. * Chelsea Alvarado RN - 05/19/2024 9:43 PM CDT Problem: Self/Other - Directed Violence - Risk of Goal: Will not harm self while hospitalized Outcome: Met this shift Note: Calm and appropriate.Denied any anxiety or S/I. Social with peers in the Kitchen and lounge.CPAP at bedtime with 1:1 close observation. Medication compliant. PRN Trazodone taken at bedtime per request. * Zaida Herzog RN - 05/19/2024 2:41 PM CDT Problem: Self/Other - Directed Violence - Risk of Goal: Will not harm self while hospitalized Outcome: Met this shift Problem: Coping - Ineffective, Individual Goal: Demonstrates/verbalizes positive coping patterns Outcome: Met this shift Continues to feel tired. Reports poor sleep last night due to the uncomfortable bed. Medication compliant. Good PO eating in the dining room. Attending groups. Watching Football in the lounge this afternoon. No symptoms of COVID-19. * Bunny Malloy RN - 05/19/2024 6:23 AM CDT Problem: Discharge Planning and Health Maintenance Goal: Verbalizes/demonstrates positive health maintenance behaviors Outcome: Met this shift Pt slept 6+ hours. Remained on 1:1 close obs while using CPAP and tolerated well overnight. No concerns. No signs/symptoms of Covid noted/reported. * Evita Weber RN - 05/18/2024 9:39 PM CDT Problem: Self/Other - Directed Violence - Risk of Goal: Will not harm self while hospitalized Outcome: Ongoing Problem: Coping - Ineffective, Individual Goal: Demonstrates/verbalizes positive coping patterns Outcome: Ongoing Patient spent most of the time in the room, in the lounge after dinner, watched T.V, socialized with peers. Denied SI, reported pain to the left side of chest while breathing in, requested/given PRN Tylenol. Received visitor in the kitchen, noted to be crying, declined to state the course, CPAP at bedtime with 1:1 close observation. Medication compliant. PRN Trazodone taken at HS. * Zaida Herzog RN - 05/18/2024 2:36 PM CDT Problem: Self/Other - Directed Violence - Risk of Goal: Will not harm self while hospitalized Outcome: Met this shift Good PO eating in the dining room. Am med compliant. Attending community meeting. Feels, Depressed, I'm really depressed, that's it. His goal today is to shower. He then did shower. Reports he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 injection 10 mg(Linked Group 6) 10 mg, IntraMUSCULAR, EVERY 6 HOURS NEEDED, Starting on Mon05/13/24 at 1355, Until Discontinued, for moderate agitation or psychosis. polyethylene glycol (MIRALAX) packet 17 g 17 g, oral, DAILY NEEDED, Starting on Mon05/13/24 at 1356, Until Discontinued, constipation senna-docusate (SENNA-S) tablet 2 tablet 2 tablet, oral, DAILY NEEDED, Starting on Mon05/13/24 at 1356, Until Discontinued, constipation Linked Groups Order Group 1: venlafaxine ER (EFFEXOR XR) extended release capsule 24 HR 37.5 mg (COMPLETED) 37.5 mg, oral, DAILY, 1 dose, First dose on Mon05/21/24 at 0800 Followed by venlafaxine ER (EFFEXOR XR) extended release capsule 24 HR 75 mg (COMPLETED) 75 mg, oral, DAILY, 1 dose, First dose on Mon05/22/24 at 0800 Followed by venlafaxine ER (EFFEXOR XR) extended release capsule 24 HR 150 mgJump to med 150 mg, oral, DAILY, First dose on Mon05/23/24 at 0800, Until Discontinued Group 2: diphenhydrAMINE (BENADRYL) tablet 50 mgJump to med 50 mg, oral, EVERY 6 HOURS NEEDED, Starting on Mon05/13/24 at 1355, Until Discontinued, for mild agitation or extrapyramidal symptoms Or diphenhydrAMINE (BENADRYL) injection 50 mgJump to med 50 mg, IntraMUSCULAR, EVERY 6 HOURS NEEDED, Starting on Mon05/13/24 at 1355, Until Discontinued, for mild agitation or extrapyramidal symptoms Group 3: LORazepam (Ativan) injection (conc: 2 mg/mL) 2 mgJump to med 2 mg, IntraMUSCULAR, EVERY 6 HOURS NEEDED, Starting on Mon05/13/24 at 1356, Until Discontinued, severe agitation or psychosis not relived by ORAL lorazepam ? haloperidol ? diphenhydramine. And haloperidoL (HaldoL) injection 5 mgJump to med 5 mg, IntraMUSCULAR, EVERY 6 HOURS NEEDED, Starting on Mon05/13/24 at 1356, Until Discontinued, severe agitation or psychosis not relived by ORAL lorazepam ? haloperidol ? diphenhydramine. And diphenhydrAMINE (BENADRYL) injection 50 mgJump to med 50 mg, IntraMUSCULAR, EVERY 6 HOURS NEEDED, Starting on Mon05/13/24 at 1356, Until Discontinued, severe agitation or psychosis not relived by ORAL lorazepam ? haloperidol ? diphenhydramine. Group 4: LORazepam (ATIVAN) tablet 2 mgJump to med 2 mg, oral, EVERY 6 HOURS NEEDED, Starting on Mon05/13/24 at 1355, Until Discontinued, severe agitation or psychosis And haloperidoL (HaldoL) tablet 5 mgJump to med 5 mg, oral, EVERY 6 HOURS NEEDED, Starting on Mon05/13/24 at 1355, Until Discontinued, severe agitation or psychosis And diphenhydrAMINE (BENADRYL) tablet 50 mgJump to med 50 mg, oral, EVERY 6 HOURS NEEDED, Starting on Mon05/13/24 at 1355, Until Discontinued, severe agitation or psychosis Group 5: haloperidoL (HaldoL) tablet 5-10 mgJump to med 5-10 mg, oral, EVERY 6 HOURS NEEDED, Starting on Mon05/13/24 at 1356, Until Discontinued, for moderate agitation or psychosis not relieved by olanzapine. Or haloperidoL (HaldoL) injection 5-10 mgJump to med 5-10 mg, IntraMUSCULAR, EVERY 6 HOURS NEEDED, Starting on Mon05/13/24 at 1356, Until Discontinued, for moderate agitation or psychosis not relieved by olanzapine. Group 6: OLANZapine (ZyPREXA) tablet 10 mgJump to med 10 mg, oral, EVERY 6 HOURS NEEDED, Starting on Mon05/13/24 at 1355, Until Discontinued, for moderate agitation or psychosis. Or OLANZapine (ZYPREXA) vial for injection 10 mgJump to med 10 mg, IntraMUSCULAR, EVERY 6 HOURS NEEDED, Starting on Mon05/13/24 at 1355, Until Discontinued, for moderate agitation or psychosis. documented in this encounter Care Teams Male Model Relationship Specialty Start Date End Date Lay, Md TABARES ADDRESS/PHONE/FAX AFFILIATED PCP - General 05/12/24 documented as of this encounter
--- OUTSIDE RECORDS SUMMARY | 2024-05-26 04:22 | XMS_ITS | Encounter Summary ---
Author Organization [facility] Address [address] [place] [address]. [place] [address] Care Team Providers Care Notching Press Operator Name Role Phone Valentin Muñoz MD Primary Care Provider [phone] Valentin Muñoz MD Unavailable [phone] Reason for Referral * Therapeutic Imaging/IR (Routine) - Pending Review Specialty Diagnoses / Procedures Referred By Contac t Referred To Contact Radiology. Diagnoses Acute deep vein thrombosis (DVT) of iliac vein of right lower extremity (H) Procedures IR Follow Up Visit Outpatient Masood Branham MD [facility] RADIOLOGIC CONS [address] [place] [address] Referral ID Status Reason Start Date Expiration Date V isits Requested Visits Authorized [id number] Pending Review 03/11/2024 03/11/2025 1 1 Encounter Details Date Type Department Care Team (Late st Contact Info) Description 03/11/2024 Orders Only [facility] [place] [address] [place] [phone] Minerva Campbell, supervisor metal fabricating deep vein thrombosis (DVT) of iliac vein [...] How often do you attend chur or nondenominational services? 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 [place] [phone] Roro Acevedo PA-C [address] [place] [id number] 08/01/2024 2:30 PM AUTO CRANE DRIVER Virtual Visit [facility] [address] [place] [phone] Roro Acevedo PA-C [address] [place] [address] documented as of this encounter Results * IR Follow Up Visit Outpatient (03/12/2024 2:12 PM CDT) Narrative RADIANT - 03/13/2024 8:30 AM CDT This exam was marked as non-reportable because it will not be read by a radiologist or a [facility] non-radiologist provider. Masood Branham MD IMG IR ORDERABL ES RADIANT documented in this encounter Visit Diagnoses Diagnosis Acute deep vein thrombosis (DVT) of iliac vein of right lower extremity (H)- Primary Acute deep vein thrombosis (DVT) of iliac vein of right lower extremity (H) documented in this encounter Additional Health Concerns Assessment Noted Time PHQ-9 Depression Total Score: 24 024 11:07 AM CDT documented as of this encounter Care Teams Notching Press Operator Relationship Specialty Start Date End Date Valentin Muñoz MD [facility] [place] [address] PCP - General Internal Medicine 10/08/10 Valentin Muñoz MD [address] [facility] [place] [address] Assigned PCP 10/03/16 documented as of this encounter
--- OUTSIDE RECORDS SUMMARY | 2024-05-26 04:22 | XMS_ITS | Encounter Summary ---
Author Organization [facility] Address [address] [place] [address] Care Team Providers Care Redrying Machine Operator Name Role Phone Valentin Muñoz MD Primary Care Provider [phone] Valentin Muñoz MD Unavailable [phone] Encounter Details Date Type Department Care Team (Latest Contact Info) Description 03/27/2024 Travel Social History Tobacco Use Types Packs/Day [...] How often do you attend chur or confucianist services? 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 [place] [phone] Roro Acevedo, CECI [address] [place] [id number] 08/01/2024 2:30 PM BALANCE CLERK Virtual Visit [facility] [address] [place] [address] [address] [place] [phone] Roro Acevedo, CECI [address] [place] [phone] documented as of this encounter Visit Diagnoses Not on filedocumented in this encounter Additional Health Concerns Assessment Noted Time PHQ-9 Depression Total Score: 24 024 11:07 AM CDT documented as of this encounter Care Teams Redrying Machine Operator Relationship Specialty Start Date End Date Valentin Muñoz MD [address] [place] [address] [place] [address] PCP - General Internal Medicine 10/08/10 Valentin Muñoz MD [address] [place] [address] [place] [address] Assigned PCP 10/03/16 documented as of this encounter
--- OUTSIDE RECORDS SUMMARY | 2024-05-26 04:22 | XMS_ITS | Encounter Summary ---
Author Organization [facility] Address [address] [place] [address]. [place] [address] Care Team Providers Care Wireless Manager Name Role Phone Valentin Muñoz MD Primary Care Provider [phone] Valentin Muñoz MD Unavailable [phone] Omero Pham MD Unavailable [phone] Roro Acevedo PA-C Unavailable [phone] Reason for Visit * Reason Comments Prior Authorization Allyssa KAY Approved Encounter Details Date Type Department Care Team (Latest Contact Info) Description 04/10/2024 Documentation Only [facility] [address] [place] [address] [address] [place] [phone] Shawna Redman RPH Prior Authorization (Allyssa KAY Approved) Social History Tobacco Use Types Packs/Day Years [...] How often do you attend chur or voodoo services? 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 [phone] Roro Acevedo, CECI [address] [place] [phone] 08/01/2024 2:30 PM COTTON BALL MACHINE TENDER Virtual Visit [facility] [address] [place] [phone] Roro Acevedo, CECI [address] [place] [phone] documented as of this encounter Visit Diagnoses Not on filedocumented in this encounter Additional Health Concerns Assessment Noted Time PHQ-9 Depression Total Score: 24 024 11:07 AM CDT documented as of this encounter Care Teams Wireless Manager Relationship Specialty Start Date End Date Valentin Muñoz MD [address] [facility] [place] [address] PCP - General Internal Medicine 10/08/10 Valentin Muñoz MD [address] [facility] [place] [phone] Assigned PCP 10/03/16 Omero Pham MD [facility] [address] [place] [address] Assigned Heart and Vascular Provider 04/12/24 Roro Acevedo PA-C [address] [place] [address] Assigned Cancer Care Provider 04/12/24 documented as of this encounter
--- OUTSIDE RECORDS SUMMARY | 2024-05-26 04:22 | XMS_ITS | Encounter Summary ---
Author Organization [facility] Address [address] [place] [id number] Care Team Providers Care Professor Of Political Science Name Role Phone Valentin Muñoz MD Primary Care Provider [phone] Valentin Muñoz MD Unavailable [phone] Reason for Referral * Diagnostic Imaging Ultrasound (Routine) - Pending Review Specialty Diagnoses / Procedures Referred By Jazzy arndt Referred To Contact Radiology. Diagnoses Acute deep vein thrombosis (DVT) of iliac vein of right lower extremity (H) Procedures US Lower Extremity Venous Duplex Right Roro Acevedo PA-C [address] [place] [address] Referral ID Status Reason Start Date Expiration Date V isits Requested Visits Authorized [id number] Pending Review 04/09/2024 04/09/2025 1 1 * Genomics (Routine) - Closed Specialty Diagnoses / Procedures Referred By Contdilcia t Referred To Contact Diagnoses Acute deep vein thrombosis (DVT) of iliac vein of right lower extremity (H) Acute saddle pulmonary embolism with acute cor pulmonale (H) Family history of DVT Procedures Factor 2 and 5 mutation analysis Roro Acevedo PA-C [address] [place] [address] Referral ID Status Reason Start Date Expiration Date Visits Re quested Visits Authorized [id number] Closed 04/09/2024 04/09/2025 1 1 Reason for Visit * Reason Comments CLOTTING * Consultation (Routine: Next available opening) - Pending Review Specialty Diagnoses / Procedures Referred By Jazzy t Referred To Contact Medical Oncology Diagnoses Acute deep vein thrombosis (DVT) of iliac vein of right lower extremity (H) Acute saddle pulmonary embolism with acute cor pulmonale (H) Valentin Muñoz MD [address] [place] [address] [place] [address] Referral ID Status Reason Start Date Expiration Date V isits Requested Visits Authorized [id number] Pending Review 02/28/2024 02/27/2025 1 1 Encounter Details Date Type Department Care Team (Latest Contact Info) Description 04/09/2024 2:00 PM CDT Office Visit [facility] [place] [phone] Valentin Muñoz MD [address] [place] [address] [place] [address] Roro Acevedo PA-C [address] [place] [address] Acute saddle pulmonary embolism with acute cor pulmonale (H) (Primary Dx); Acute deep vein thrombosis (DVT) of iliac vein of right lower extremity (H); Family history of DVT; Encounter for anticoagulation discussion and counseling Social History Tobacco Use Types Packs/Day Years [...] any clubs o r organizations such as pentecostalism groups, unions, fraternal or athletic groups, or [...] Answer Date Recorded PHQ-2 Score 2 02/19/2024 [facility] - [...] 04/09/2024 1:50 PM CD T Respiratory Rate - - Oxygen Saturation 96% 04/09/2024 1:50 PM CDT Inhaled Oxygen Concentration - - Weight 168.5 kg (371 lb 8 oz) 04/09/2024 1:50 PM CDT Height 182.9 cm (6') 04/09/2024 1:50 PM CDT Body Mass Index 50.38 04/09/2024 1:50 PM CDT documented in this encounter Patient Instructions * Patient Instructions* Roro Acevedo PA-C - 04/09/2024 2:00 PM CDT Images from the original note were not included. [facility] [address] [place] [address], [place] [address] Main: [phone], Ant, It was a pleasure seeing you today. Thank you for allowing us to be involved in your care. Please let us know if there is anything else we can do for you, so that we can be sure you are leaving completely satisfied with your care experience. Labs today. Our lab is down the hallway in our clinic space. We will communicate these to you by [employer]. With your permission we may leave a detailed voicemail, please see below for our contact information should you have any questions about your results. Also, please note that some lab results may take a week or so to get back. Feel free to call or message if you have not heard back from us within 7-10 days. Please stay on your blood thinner: Finish your Xarelto prescription and then change to Eliquis 5mg twice daily (no need to take with food). Please call us with any bleeding issues that you may have. We will work on setting you up for the $10/mo copay card. We would like you to repeat your imaging in July 2024.. We will help you arrange this closer [facility]. Wear compression stockings if you have swelling in your leg. Knee high 20-30mmHg recommended. Take them off while you are sleeping. You may need to get new stockings every 3-6 months with regular wear. Patient Education & Resources: For additional information, please see the following web links: www.stoptheclot.org, www.clotconnect.org. Call the [facility] at [phone]. -If surgeries or procedures are planned (for holding instructions). -If off anticoagulation, please call during high risk times (long-distance travel, broken bones or trauma, immobilization, surgery, , or taking estrogen). -Any new symptoms of DVT (deep vein thrombosis) or PE (pulmonary embolism) -pain -swelling -redness -warmth -shortness of breath -chest pain -coughing up blood We would like a provider on our team to see you at least annually for optimal care and to allow us to continue to prescribe for you. Return to clinic in July 2024 after your updated ultrasound. Your assigned nurse clinician is Júnior. His direct line is [phone]. If they are unavailable andyou have immediate concerns, please call [phone] and ask for a nurse. Roro Velasco, MPH, PA-C [facility] documented in this encounter Progress Notes * Roro Acevedo PA-C - 04/09/2024 2:00 PM CDT Images from the original note were not included. [facility] [address] [place] [id number] , Outpatient Visit Note: Patient: Ant Beckford : 1985 MIKA: Apr 09, 2024 Reason for Consultation: Ant Beckford is referred for evaluation and treatment of venous thromboembolism. Assessment: In summary, Ant Beckford is a 38 year old male with past medical history significant for hypertension, obesity, FAITH and mood disorder who was admitted for mechanical thrombectomy of saddle pulmonary embolism and extensive right lower extremity deep and superficial vein thrombus on 02/19/2024. Transient provoking risk factors include a 3 night hospitalization in mid January and increased sedentary lifestyle due to severe bout of depression. He notes that his activity has increased as he is back to work now. Chronic risk factors include obesity, advancing age and family history of DVT. He notes that he has lost 50lb over the last several months by eating more home cooked foods. Denies any B Cellsymptoms. Follow up imaging showed significant improvement in thrombus burden s/p thrombectomy. He notes that he is not having ongoing right leg pain or swelling and his breathing is at his baseline. He is currently on Xarelto and tolerating it well. He is not however taking it with food. Discussedoption to take it with food for ensured absorption or change to Eliquis twice daily without food. He elected to change to Eliquis. Discussed $10/month co-pay card and our pharmacy will help set him up with this today. Plan: Majority of today's visit was spent counseling the patient regarding provoked vs unprovoked VTE including pathophysiology, risk factors, anticoagulation options, risks/benefits and duration of therapy. I recommend that Mr. Beckford complete at least six months of therapeutic anticoagulation and then return to discuss plan for adult neuropsychologist anticoagulation after he has repeat imaging in July 2024. He will change from Xarelto to Eliquis 5mg twice daily so that he does not have to take with food. Will set him up for $10/mo copay card. We briefly discussed option to use intermittent anticoagulation during high risk time periods in the future as his event was provoked vs continuous nursing home anticoagulation at prophylactic intensity if his risk factors are still ongoing. Inheritable thrombophilia evaluation discussed and he would like to proceed with testing. Will check for APS to ensure he is a DOAC candidate. Recommended healthy weight loss management. Discussed use of compression socks, elevation of the legs and walking regimen for mitigation of post thrombotic syndrome symptoms. Offered mental health services, gave him our contact information. Return to clinic or have virtual visit in July 2024 after repeat right lower extremity ultrasound. The patient is given our center's contact information and is instructed to call if they should haveany further questions or concerns. Otherwise, we will plan on seeing them back as above. Patient understands and agrees with the above plan and recommendation. Roro Velasco, MPH, PA-C [facility] 60 minutes spent by me on the date of the encounter doing chart review, review of outside records, review of test results, interpretation of tests, patient visit, and documentation History of Present Illness: Ant Beckford is a 38 year old male with past medical history significant for hypertension, obesity, FAITH and mood disorder who presents today in consultation for venous thromboembolism and hypercoagulability evaluation. Mr. Beckford had been admitted to [facility] 02/01 - 02/05 for voluntary psychiatric admission due to suicidal ideation and two preceding ER visits on 01/16 and 01/29. At his follow up appointment with his PCP on 02/19/2024, he reported right calf pain. US was performed and showed extensive right lower extremity DVT from right external iliac vein to ankle veins as well as superficial vein thrombosis in the small and greater saphenous veins. Upon discussing results Mr. Beckford was found to be dyspneic. He was directly admitted to [facility] for acute hypoxic respiratory failure secondary to acute saddle pulmonary embolism with cor pulmonale and extensive right lower extremity DVT. IR was consulted and he underwent mechanical thrombectomy of both PE and DVT on 02/18 and 02/19. He was initially treated with heparin and then transitioned to Xarelto. Follow up imaging of right lower extremity on 04/01/2024 showed persistent occlusive DVT of the right right femoral and popliteal veins with resolution of deep vein thr ombosis in the right external iliac, common femoral, profunda femoral, posterior tibial and peroneal veins. Resolution of superficial thrombus in the right great saphenous vein. His episode was likely precipitated by prolonged hospitalization and period of immobility during bout of severe depression. He also has family history of DVT in father thus may have an underlying thrombophilia. He notes no other surgeries, procedures, trauma, illness, or travel prior to symptom onset. No hormone or steroid therapy. He denies any prior history of superficial vein thrombosis or DVT. No history of varicosities. He previously had tolerated foot surgery with immobilization for several weeks afterwards without DVT symptoms. He met with vascular team to discuss results and the recommendation was made to keep him on anticoagulation without need for further intervention given symptomatic improvement. Pk notes that he has been tolerating Xarelto well without any bleeding issues. He notes that he his symptoms are back to baseline. He reports that he has been having intermittent lightheadedness. Post hospitalization, his amlodipine was discontinued. He is still taking lisinopril/hydrochlorothiazide. He has not been monitoring his BP at home. Denies orthostatic symptoms. Endorses adequate hydration. Denies any bleeding symptoms. Denies any near syncope or syncope. He is a never smoker. 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 He notes that he has increased his activity level. He notes that he has a decent support system and his medications are currently working for him. Family history is notable for father with history of DVT, details unknown. He notes no maternal or grandparent history of venous thromboembolism. He has siblings without venous thromboembolism history. He has one daughter, age 11. She is not on any cOCP at present and has not history of venous thromboembolism. Paternal grandfather had history of brain cancer and maternal aunt with history of breast cancer. He has no personal history of malignancy. He denies LUTS symptoms. No prior PSA drawn. No fevers, chills, night sweats or B Cell symptoms. He has had 50lb weight loss progressively over the last few months. He notes that he has been much more intentional about eating home cooked meals rather than eating out. He denies any joint or abdo jim pain. No stool changes. Past Medical History: Past Medical History: Diagnosis Date Hypertension Obese FAITH (obstructive sleep apnea) 03/24/2022 Past Surgical History: Past Surgical History: Procedure Laterality Date IR FOLLOW UP VISIT OUTPATIENT 03/12/2024 IR LOWER EXTREMITY VENOGRAM RIGHT 02/20/2024 IR PULMONARY ANGIOGRAM BILATERAL 02/19/2024 ORTHOPEDIC SURGERY Left 2001 left foot surgery VASECTOMY Bilateral 12/14/2018 Procedure: Bilateral vasectomy; Surgeon: Mark Miller MD; Location: OR Medications: Current Outpatient Medications Medication Sig Dispense Refill amLODIPine (NORVASC) 10 MG tablet Take 1 tablet (10 mg) by mouth daily 90 tablet 3 apixaban ANTICOAGULANT (ELIQUIS ANTICOAGULANT) 5 MG tablet Take 1 tablet (5 mg) by mouth 2 times daily 180 tablet 1 FLUoxetine (PROZAC) 40 MG capsule Take 40 mg by mouth daily gabapentin (NEURONTIN) 600 MG tablet Take 2 tablets (1,200 mg) by mouth at bedtime 30 tablet 2 lisinopril-hydrochlorothiazide (ZESTORETIC) 20-25 MG tablet Take 2 tablets by mouth daily risperiDONE (RISPERDAL) 2 MG tablet Take 1 tablet by mouth at bedtime rivaroxaban ANTICOAGULANT (XARELTO) 20 MG TABS tablet Take 1 tablet (20 mg) by mouth daily (with dinner) 90 tablet 0 traZODone (DESYREL) 100 MG tablet Take 100 mg by mouth at bedtime Allergies: Allergies Allergen Reactions Cephalexin Hives ROS: Remainder of a comprehensive 14 point ROS is negative unless noted above. 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 In office [employer]. Denies any tobacco use. No significant alcohol use. Denies any illicit drug use. , one 11 year old daughter. Family History: Father with history of DVT, see HPI for additional family history. Objectives: Vitals: BP 127/84 Pulse 91 Temp 98.1 ??F (36.7 ??C) (Oral) Ht 1.829 m (6') Wt (!) 168.5 kg (371 lb 8 oz) SpO2 96% BMI 50.38 kg/m?? Exam: Constitutional: Appears well, no distress HEENT: Pupils equal and round. No scleral icterus or hemorrhage. Respiratory: no increased work of breathing. Mus/Skele: trace right lower extremity distal ankle edema. No discoloration. No warmth, tenderness.Negative homans. Skin: no petechiae, no ecchymosis on exposed dermis. Neuro: CN II-XII intact. Normal gait. AOx3 Labs: CBC RESULTS: Recent Labs Lab Test 02/22/24 0624 02/21/24 0734 02/20/24 0533 WBC -- -- 8.5 RBC -- -- 5.06 HGB 12.2* < > 14.1 HCT -- -- 40.1 MCV -- -- 79 MCH -- -- 27.9 MCHC -- -- 35.2 RDW -- -- 13.1 PLT -- -- 203 < > = values in this interval not displayed. Last Comprehensive Metabolic Panel: Sodium Date Value Ref Range Status 02/22/2024 134 (L) 135 - 145 mmol/L Final 08/08/2020 139 133 - 144 mmol/L Final Potassium Date Value Ref Range Status 02/22/2024 3.8 3.4 - 5.3 mmol/L Final 01/28/2022 3.4 3.4 - 5.3 mmol/L Final 10/09/2020 3.2 (L) 3.4 - 5.3 mmol/L Final Chloride Date Value Ref Range Status 02/22/2024 101 98 - 107 mmol/L Final 01/28/2022 109 94 - 109 mmol/L Final 08/08/2020 104 94 - 109 mmol/L Final Carbon Dioxide Date Value Ref Range Status 08/08/2020 28 20 - 32 mmol/L Final Carbon Dioxide (CO2) Date Value Ref Range Status 02/22/2024 25 22 - 29 mmol/L Final 01/28/2022 27 20 - 32 mmol/L Final Anion Gap Date Value Ref Range Status 02/22/2024 8 7 - 15 mmol/L Final 01/28/2022 6 3 - 14 mmol/L Final 08/08/2020 7 3 - 14 mmol/L Final Glucose Date Value Ref Range Status 02/22/2024 99 70 - 99 mg/dL Final 01/28/2022 80 70 - 99 mg/dL Final 08/08/2020 74 70 - 99 mg/dL Final GLUCOSE BY METER POCT Date Value Ref Range Status 02/21/2024 113 (H) 70 - 99 mg/dL Final Urea Nitrogen Date Value Ref Range Status 02/22/2024 12.7 6.0 - 20.0 mg/dL Final 01/28/2022 16 7 - 30 mg/dL Final 08/08/2020 12 7 - 30 mg/dL Final Creatinine Date Value Ref Range Status 02/22/2024 0.72 0.67 - 1.17 mg/dL Final 08/08/2020 0.77 0.66 - 1.25 mg/dL Final GFR Estimate Date Value Ref Range Status 02/22/2024 >90 >60 mL/min/1.73m2 Final Comment: eGFR calculated using 2020 CKD-EPI equation. 08/08/2020 >90 >60 mL/min/[1.73_m2] Final Comment: Non GFR Calc Starting 08/07/2018, serum creatinine based estimated GFR (eGFR) will be calculated using the Chronic Kidney Disease Epidemiology Collaboration (CKD-EPI) equation. Calcium Date Value Ref Range Status 02/22/2024 8.2 (L) 8.6 - 10.0 mg/dL Final 08/08/2020 9.5 8.5 - 10.1 mg/dL Final Liver Function Studies - Recent Labs Lab Test 02/20/24 0533 PROTTOTAL 6.4 ALBUMIN 3.5 BILITOTAL 1.0 ALKPHOS 53 AST 14 ALT 20 Imaging: Recent Results (from the past 744 hour(s)) XR Chest Port 1 View Narrative For Patients: As a result of the Century Cures Act, medical imaging exams and procedure reports are released immediately into your electronic medical record. You may view this report before yourreferring provider. If you have questions, please contact your health care provider. Indication: Shortness of breath Technique: AP view of the chest. Comparison: None. Findings: Low lung volumes. Moderately elevated right hemidiaphragm. Normal cardiomediastinal silhouette. No focal consolidation, pleural effusions, or visualized pneumothorax. Impression: No acute cardiopulmonary disease. Dictated by Bg Woodson MD @ 03/07/2024 4:47:33 PM (Electronically Signed) IR Follow Up Visit Outpatient Narrative This exam was marked as non-reportable because it will not be read by a radiologist or a [facility] non-radiologist provider. US Lower Extremity Venous Duplex Right Narrative ULTRASOUND RIGHT LOWER EXTREMITY VENOUS DUPLEX 04/01/2024 [...] waveform, color flow and augmentation. Impression IMPRESSION: 1. Persistent occlusive deep vein thrombosis in the right femoral and popliteal veins. 2. Resolution of deep vein thrombosis in the right external iliac, common femoral, profunda femoral, posterior tibial and peroneal veins. Resolution of superficial thrombus in the right great saphenous vein. Narrative & Impression US LOWER EXTREMITY VENOUS DUPLEX RIGHT 02/19/2024 [...] also short of breath. MARISA GILES DO Narrative & Impression EXAM: CT CHEST PULMONARY EMBOLISM W CONTRAST LOCATION: [facility] DATE: 02/19/2024 INDICATION: known DVT, SOB [...] hemidiaphragm. LIMITED UPPER ABDOMEN: Negative. MUSCULOSKELETAL: Negative. IMPRESSION: 1. Stents of pulmonary embolism bilaterally including large saddle embolus. Pulmonary arteries and right ventricle appear mildly enlarged compatible with elevated right heart pressure. documented in this encounter Plan of Treatment Upcoming Encounters Date Type Department Care Team (Late st Contact Info) Description 06/18/2024 12:00 PM CDT Virtual Visit [facility] [place] [id number] [place] [phone] Josephine Krishnan PA-C [address] [place] [address] 07/22/2024 5:00 PM MEDICAL ASSISTANT SUPERVISOR Appointment [facility] [address] [place] [phone] Roro Acevedo PA-C [address] [place] [address] 08/01/2024 2:30 PM MEDICAL ASSISTANT SUPERVISOR Virtual Visit [facility] [address] [place] [phone] Roro Acevedo PA-C [address] [place] [address] Scheduled Orders Name Type Priority Associated Diagnoses Orde r Schedule US Lower Extremity Venous Duplex Right Imaging Routine Acute deep vein thrombosis (DVT) of iliac vein of right lower extremity (H) Expected: 07/22/2024 (Approximate), Expires: 04/09/2025 documented as of this encounter Procedures Procedure [...] pulmonary embolism with acute cor pulmonale (H) PSA TOTAL AND FREE Routine 04/09/2024 2: [...] cor pulmonale (H) Family history of DVT ANTITHROMBIN III Routine 04/09/2024 2:36 PM CDT Acute deep vein thrombosis (DVT) of iliac vein of right lower extremity (H) Acute saddle pulmonary embolism with acute cor pulmonale (H) Family history of DVT documented in this encounter Results * PSA total and free (04/09/2024 2:36 PM CDT) [facility] PSA Free 0.1 ng/mL 04/09/2024 9:08 PM [...] LAB - BLOOD ORDERABLES Performing Organization Address City/State/[facility] Co de Phone Number LABORATORY [facility] [address] [facility], [address] [place] [phone] * (ABNORMAL) Factor 2 and 5 mutation analysis (04/09/2024 2:36 PM CDT) METHODOLOGY The regions of genomic DNA containing the F5 gene mutation R506Q(1691G>A) and the Factor 2 (Prothrombin T36323I) gene mutation were simultaneously amplified using the polymerase chain reaction. The amplified products were digested with restriction endonuclease TaqI and products were analyzed by gel electrophoresis. 04/18/2024 9:36 AM CDT [facility] (LDL) RESULTS Factor V 1691G>A ([place]) RESULTS: Mutation analyzed: 1691G>A Factor V 1691G>A ([place]) Interpretation: PRESENT Factor V 1691G>A ([place]) mutation genotype: G/A FACTOR 2/PROTHROMBIN RESULTS: Mutation analyzed: 61284Q>A Factor 2 Mutation Interpretation: ABSENT Factor 2 Mutation genotype: G/G 04/18/2024 9:36 AM CDT [facility] (LDL) Comment:Corrected result: Pr eviously reported [...] 2024 9:29 AM) 04/18/2024 9:36 AM CDT [facility] (LDL) COMMENTS If a patient is the recipient of an allogeneic bone marrow transplant, this test must be done on a pre-transplant sample or buccal swab. A previous allogeneic bone marrow transplant will interfere with test results. Call the [facility] ([phone]) for instructions on sample collection for these patients. 04/18/2024 9:36 AM CDT [facility] (LDL) DISCLAIMER This test was developed and its performance characteristics determined by [facility]. It has not been cleared or [...] the interpretation(s) . 04/18/2024 9:36 AM CDT [facility] (LDL) FACTOR 2 INTERPRETATION Factor 2 Mutation Interpretation: ABSENT 04/18/2024 9:36 AM CDT [facility] (LDL) Comment:This is an appended report. These results have been appended to a previously final verified report. FACTOR V INTERPRETATION Factor V 1691G>A ([place]) Interpretation: PRESENT(A) 04/18/2024 9:36 AM CDT [facility] (LDL) Signout Location if Remote Report signed out at: [email or web address] 04/18/2024 9:36 AM CDT [facility] ([facility]) Specimen Description Blood: ACD 04/18/2024 9:36 AM CDT [facility] ([facility]) Blood STRUCTURE OF RIGHT HAND / Unknown Venipuncture / Unknown 04/09/2024 2:36 PM CDT 04/09/2024 2:47 PM CDT Roro Pateliako PA-C LAB - GENOM ICS [facility] (LDL) [facility] [address] [facility], [address] * Protein S Antigen Free (04/09/2024 2:36 PM CDT) Protein S Antigen Free 89 70 - 148 % 04/11/2024 8:59 AM CDT [facility] Blood STRUCTURE OF RIGHT HAND / Unknown Venipuncture / Unknown 04/09/2024 2:36 PM CDT 04/09/2024 2:47 PM CDT Roro Paetliako PA-C LAB - BLOOD ORDERABLES Performing Organization Address City/[facility]/ZIP Co de Phone Number [facility] [address] [facility], [address] [id number] * Protein C chromogenic (04/09/2024 2:36 PM CDT) Protein C Chromogenic 127 70 - 170 % 04/11/2024 8:59 AM CDT [facility] Blood STRUCTURE OF RIGHT HAND / Unknown Venipuncture / Unknown 04/09/2024 2:36 PM CDT 04/09/2024 2:47 PM CDT Roro Velasco Bediako PA-C LAB - BLOOD ORDERABLES UM SPECIAL COAGULATION Special Coagulation [address] [facility] Unit [facility], Room [address] [address] * Cardiolipin Ayaan IgG and IgM (04/09/2024 2:36 PM CDT) Cardiolipin Ayaan IgG Instrument Value <2.0 <10.0 GPL-U/mL 04/10/2024 10:48 AM CDT UM SPECIALTY CORE/PROT/END O Cardiolipin Antibody IgG Negative Negative 04/10/2024 10:48 AM CDT UM SPECIALTY CORE/PROT/END O Cardiolipin Ayaan IgM Instrument Value <2.0 <10.0 MPL-U/mL 04/10/2024 10:48 AM CDT UM SPECIALTY CORE/PROT/END O Cardiolipin Antibody IgM Negative Negative 04/10/2024 10:48 AM CDT SPECIALTY CORE/PROT/END O Blood STRUCTURE OF RIGHT HAND / Unknown Venipuncture / Unknown 04/09/2024 2:36 PM CDT 04/09/2024 2:48 PM CDT Roro Craft PA-C LAB - BLOOD ORDERABLES UM SPECIALTY CORE/PROT/ENDO Specialty Core/Prot/Endo [address] [facility], Room [address] * Beta 2 Glycoprotein 1 Antibody IgM (04/09/2024 2:36 PM CDT) Beta 2 Glycoprotein 1 Antibody IgM <2.4 <7.0 U/mL 04/10/2024 10:47 AM CDT SPECIALTY CORE/PROT/END O Comment:Negative Blood STRUCTURE OF RIGHT HAND / Unknown Venipuncture / Unknown 04/09/2024 2:36 PM CDT 04/09/2024 2:48 PM CDT Roro Walkerko PA-C LAB - BLOOD ORDERABLES UM SPECIALTY CORE/PROT/ENDO UM Specialty Core/Prot/Endo [address] [facility], Room [address] [place] [address] * Beta 2 Glycoprotein 1 Antibody IgG (04/09/2024 2:36 PM CDT) Beta 2 Glycoprotein 1 Antibody IgG 1.1 <7.0 U/mL 04/10/2024 10:47 AM CDT UM SPECIALTY CORE/PROT/END O Comment:Negative Blood STRUCTURE OF RIGHT HAND / Unknown Venipuncture / Unknown 04/09/2024 2:36 PM CDT 04/09/2024 2:48 PM CDT Roro Craft PA-C LAB - BLOOD ORDERABLES UM SPECIALTY CORE/PROT/ENDO UM Specialty Core/Prot/Endo [address] [facility], Room [address] [place] [address] * Antithrombin III (04/09/2024 2:36 PM CDT) Antithrombin III 108 85 - 135 % 04/11/20 8:59 AM CDT SPECIAL COAGULATION Blood STRUCTURE OF RIGHT HAND / Unknown Venipuncture / Unknown 04/09/2024 2:36 PM CDT 04/09/2024 2:47 PM CDT Roro Craft PA-C LAB - BLOOD ORDERABLES SPECIAL COAGULATION UM Special Coagulation [address] [facility], [address] [id number] documented in this encounter Visit Diagnoses Diagnosis Acute saddle pulmonary embolism with acute cor pulmonale (H)- Primary Acute deep vein thrombosis (DVT) of iliac vein of right lower extremity (H) Family history of DVT Family history of other cardiovascular diseases Encounter for anticoagulation discussion and counseling documented in this encounter Additional Health Concerns Assessment Noted Time PHQ-9 Depression Total Score: 24 024 11:07 AM CDT documented as of this encounter Care Teams Professor Of Political Science Relationship Specialty Start Date End Date Valentin Muñoz MD [address] [facility] [place] [address] PCP - General Internal Medicine 10/08/10 Valentin Muñoz MD [address] [facility] [place] [address] Assigned PCP 10/03/16 documented as of this encounter
--- OUTSIDE RECORDS SUMMARY | 2024-05-26 04:22 | XMS_ITS | Encounter Summary ---
Author Organization [facility] Address [address] [place] [address] Care Team Providers Care Family And Divorce Legal Assistant Name Role Phone Valentin Muñoz MD Primary Care Provider [phone] Valentin Muñoz MD Unavailable [phone] Encounter Details Date Type Department Care Team (Late st Contact Info) Description 03/28/2024 10:[address] [facility] [address] [place] [phone] Acute paranoid reaction (H) (Primary Dx) Social [...] often do you attend chur ch or shinto services? More than 4 times per year 04/04/2023 Do you belong to any clubs o r organizations such as temple groups, unions, fraternal or athletic groups, or [...] Answer Date Recorded PHQ-2 Score 2 02/19/2024 [facility] - Occupational Stress Questionnaire Answer Date [...] Description 06/18/2024 12:00 PM CDT Virtual Visit [facility] [place] [address] [place] [phone] Josephine Krishnan PA-C [address] [place] [id number] 07/22/2024 5:00 PM PAINTING MACHINE OPERATOR Appointment [facility] [address] [place] [phone] Roro Acevedo, CECI [address] [place] [id number] 08/01/2024 2:30 PM PAINTING MACHINE OPERATOR Virtual Visit [facility] [address] [place] [address] 105 [place] [phone] Roro Acevedo PA-C [address] [place] [address] [phone] documented as of this encounter Procedures Procedure Name Priority Date/Time Associated Diagnosis Comments PROLACTIN Routine 03/28/2024 10:19 AM CDT Acute paranoid reaction (H) HEMOGLOBIN A1C Routine 03/28/2024 10:19 AM CDT Acute paranoid reaction (H) documented in this encounter Results * (ABNORMAL) Prolactin (03/28/2024 10:19 AM CDT) Prolactin 29(H) 4 - 15 ng/mL 03/28/2024 9:49 PM CDT [facility] Blood BLOOD SPECIMEN / Unknown Venipuncture / Unknown 03/28/2024 10:19 AM CDT 03/28/2024 10:19 AM CDT Lab Non-Fv Credentialed Provider LAB - B LOOD ORDERABLES [facility] [place] [facility] [address] [facility], Room 3[address] [place] [address] * Hemoglobin A1c (03/28/2024 10:19 AM CDT) Hemoglobin A1C 5.4 0.0 - 5.6 % 03/28/2024 10:30 AM CDT LABORATORY Comment: Normal <5.7% Prediabetes 5.7-6.4% ?? Diabetes 6.5% or higher Note: Adopted from ADA consensus guidelines. Blood BLOOD SPECIMEN / Unknown Venipuncture / Unknown 03/28/2024 10:19 AM CDT 03/28/2024 10:19 AM CDT Lab Non-Fv Credentialed Provider LAB - B LOOD ORDERABLES LABORATORY [facility] [place] [facility] [address] [facility] Lab (no room number, 1st floor of clinic) [place] [address], [facility] documented in this encounter Visit Diagnoses Diagnosis Acute paranoid reaction (H)- Primary Acute paranoid reaction documented in this encounter Additional Health Concerns Assessment Noted Time PHQ-9 Depression Total Score: 24 024 11:07 AM CDT documented as of this encounter Care Teams Family And Divorce Legal Assistant Relationship Specialty Start Date End Date Valentin Muñoz MD [address] [place] [address] [place] [address] PCP - General Internal Medicine 10/08/10 Valentin Muñ[place] [address] [place] [address] [place] [address] Assigned PCP 10/03/16 documented as of this encounter
--- OUTSIDE RECORDS SUMMARY | 2024-05-26 04:22 | XMS_ITS | Encounter Summary ---
Author Organization [facility] Address [address] [place] [address]. [place] [address] Care Team Providers Care Coach Driver Name Role Phone Valentin Muñoz MD Primary Care Provider [phone] Valentin Muñoz MD Unavailable [phone] Omero Pham MD Unavailable [phone] Roro Acevedo PA-C Unavailable [phone] Reason for Visit * Reason Comments Prior Auth - Medication Eliquis 5 mg PA Approval 03/11/24 to 04/10/25 Encounter Details Date Type Department Care Team (Latest Contact Info) Description 04/26/2024 Documentation Only [facility] [address] [place] [phone] Shawna Redman RPH Prior Auth - Medication (Eliquis 5 mg PA A... Social History Tobacco Use Types Packs/Day Years [...] How often do you attend chur or pentecostalism services? More than 4 times per year [...] Answer Date Recorded PHQ-2 Score 2 02/19/2024 [facility] of Occupat ional [facility] - Occupational Stress Questionnaire Answer Date [...] as of this encounter Progress Notes * Gali Singh - 04/26/2024 10:18 AM CDT Images from the original note were not included. Medication/Dose: Eliquis 5mg - Take 1 tablet by mouth twice daily Cover My Meds [place]: [id number] PA approved. Effective dates: 03/11/2024 to 04/10/2025 Yon Hurley, [facility] Lead Long Distance Operator [facility] [phone] documented in this encounter Plan of Treatment Upcoming Encounters Date Type Department Care Team (Late st Contact Info) Description 06/18/2024 12:00 PM CDT Virtual Visit [facility] [place] [address] [place] [address] Josephine Krishnan PA-C [address] [place] [address] 07/22/2024 5:00 PM FIREBOAT OPERATOR Appointment [facility] [address] [place] [phone] Roro Acevedo PAShannaC [address] [place] [address] 08/01/2024 2:30 PM FIREBOAT OPERATOR Virtual Visit [facility] [address] [place] [address] Roro Acevedo, KELLYC [address] [place], [place] [phone] documented as of this encounter Visit Diagnoses Not on filedocumented in this encounter Additional Health Concerns Assessment Noted Time PHQ-9 Depression Total Score: 24 024 11:07 AM CDT documented as of this encounter Care Teams Coach Driver Relationship Specialty Start Date End Date Valentin Muñoz MD [facility] [place] [address] PCP - General Internal Medicine 10/08/10 Valentin Muñoz MD [address] [place] [address] [place] [address] Assigned PCP 10/03/16 Omero Pham MD [facility] [address] [place] [address] Assigned Heart and Vascular Provider 04/12/24 Roro Acevedo, PA-C [address] [place] [address] Assigned Cancer Care Provider 04/12/24 documented as of this encounter
--- OUTSIDE RECORDS SUMMARY | 2024-05-26 04:22 | XMS_ITS | Encounter Summary ---
Author Organization [facility] Address [address] [place] [address]. [place] [address] Care Team Providers Care Funeral Car Chauffeur Name Role Phone Valentin Muñoz MD Primary Care Provider [phone] Valetnin Muñoz MD Unavailable [phone] Omero Pham MD Unavailable [phone] Roro Acevedo PA-C Unavailable [phone] Reason for Visit * Reason Comments Prior Authorization Encounter Details Date Type Department Care Team (Latest Contact Info) Description 03/27/2024 Documentation Only [facility] Mental Health & Addiction [address] [address] Jocelyn Shields MD [address] [place] [address] Prior Authorization Social History Tobacco Use Types Packs/Day Years [...] How often do you attend [facility] or mormonism services? More than 4 times per year [...] [facility] of Occupat ional Health - [...] as of this encounter Progress Notes * Heidi Hilliard - 03/27/2024 10:16 AM CDT This patient is coming to lab tomorrow to have blood drawn. Please sign the tests you placed or letthe patient know he doesn't need lab, thank you . Lab staff [facility] documented in this encounter Plan of Treatment Upcoming Encounters Date Type Department Care Team (Late st Contact Info) Description 06/18/2024 12:00 PM CDT Virtual Visit [facility] Sleep [address] [phone] Josephine Krishnan PA-C [address] [place] [address] 07/22/2024 5:00 PM COMMERCIAL LOAN ANALYST Appointment [facility] Imaging [address] [place] [phone] Roro Acevedo PA-C [address] [facility] [place], [place] [phone] 08/01/2024 2:30 PM COMMERCIAL LOAN ANALYST Virtual Visit [facility] [address] [facility] [address] [place] [phone] Roro Acevedo, PAShannaC [address] [place] [address] documented as of this encounter Visit Diagnoses Not on filedocumented in this encounter Additional Health Concerns Assessment Noted Time PHQ-9 Depression Total Score: 24 01/23/ 024 11:07 AM CDT documented as of this encounter Care Teams Funeral Car Chauffeur Relationship Specialty Start Date End Date Valentin Muñoz MD [address] [place] [address] [place] [address] PCP - General Internal Medicine 10/08/10 Valentin Muñoz MD [address] [place] [address] [place] [address] Assigned PCP 10/03/16 Omero Pham MD [facility] [address] [address] Assigned Heart and Vascular Provider 04/12/24 Roro Acevedo, PA-C [address] [place] [address] Assigned Cancer Care Provider 04/12/24 documented as of this encounter
--- OUTSIDE RECORDS SUMMARY | 2024-05-26 04:22 | XMS_ITS | Encounter Summary ---
Author Organization [facility] Address [address] [place] [address] Care Team Providers Care Postdoctoral Scholar Name Role Phone Valentin Muñoz MD Primary Care Provider [phone] Valentin Muñoz MD Unavailable [phone] Reason for Visit * Reason Comments Medication Refill Encounter Details Date Type Department Care Team (Late st Contact Info) Description 04/08/2024 Refill [facility] Janelle [address] [place] [address] [address] [place] [address] Valentin Muñoz MD [address] [place] [address] [place] [phone] Medication Refill Social History Tobacco Use Types [...] often do you attend chur ch or yarsanism services? More than 4 times per year 04/04/2023 Do you belong to any clubs o r organizations such as baptism groups, unions, fraternal or athletic groups, or [...] Answer Date Recorded PHQ-2 Score 2 02/19/2024 [facility] Occupat ional Health - Occupational [...] Description 06/18/2024 12:00 PM CDT Virtual Visit [facility] [place] [address] [place] [phone] Josephine Krishnan PA-C [address] [facility] [address] [place] [address] 07/22/2024 5:00 PM BUMPER AND PAINTER Appointment [facility] [address] [place] [phone] Roro Acevedo PA-C [address] [place] [address] 08/01/2024 2:30 PM BUMPER AND PAINTER Virtual Visit [facility] [address] [phone] Roro Acevedo, CECI [address] [place] [address] documented as of this encounter Visit Diagnoses Diagnosis Essential hypertension Unspecified essential hypertension documented in this encounter Additional Health Concerns Assessment Noted Time PHQ-9 Depression Total Score: 24 024 11:07 AM CDT documented as of this encounter Care Teams Postdoctoral Scholar Relationship Specialty Start Date End Date Valentin Muñoz MD [address] [facility] [place] [place] [address] PCP - General Internal Medicine 10/08/10 Valentin Muñoz MD [address] [facility] [place] [address] Assigned PCP 10/03/16 documented as of this encounter
--- OUTSIDE RECORDS SUMMARY | 2024-05-26 04:22 | XMS_ITS | Encounter Summary ---
Author Organization [facility] Address [address] [place] [address] Care Team Providers Care Pepper Cutter Name Role Phone Valentin Muñoz MD Primary Care Provider [phone] Valentin Muñoz MD Unavailable [phone] Encounter Details Date Type Department Care Team (Late st Contact Info) Description 03/11/2024 MyC Medical Advice [facility] Interventional Radiology [address] [place] [phone] Farzaneh Palomares, YOLIS Social History Tobacco Use Types Packs/Day Years [...] often do you attend chur ch or rastafarian services? More than 4 times per year 04/04/2023 Do you belong to any clubs o r organizations such as sabianism groups, unions, fraternal or athletic groups, or [...] Answer Date Recorded PHQ-2 Score 2 02/19/2024 [facility] [place] of Occupat ional Health - Occupational Stress [...] place to sleep or slept in a long term (including now)? No 04/04/2023 Adolescent Education Answer Date Record ed Getting School Help Needed Not on file 06/02 Sex and Gender Information Value Date Recorded Sex Assigned at Not on file Gender Identity Not on file Sexual Orientation Not on file documented as of this encounter Miscellaneous Notes * Telephone Encounter - Farzaneh Palomares RN - 03/11/2024 1:45 PM CDT Voicemail message left with request for patient to contact Interventional Radiology Department and acknowledge understanding of pre-procedure instructions that were provided in anticipation of procedure scheduled 03/12/2024. IR contact number provided in [facility]. Farzaneh Galvan community health program representative Thermocouple Tester [phone] documented in this encounter Plan of Treatment Upcoming Encounters Date Type Department Care Team (Late st Contact Info) Description 06/18/2024 12:00 PM CDT Virtual Visit [facility] [address] [phone] Josephine Krishnan PA-C [address] [place], [place] [address] 07/22/2024 5:00 PM SHRIMP PEELER Appointment [facility] [address] [place] [phone] Roro Acevedo, KELLYC [address] [place] [address] 08/01/2024 2:30 PM SHRIMP PEELER Virtual Visit [facility] [address] [place] [address] 105 [place] [phone] Roro Acevedo, CECI [address] [place] [address] documented as of this encounter Visit Diagnoses Not on filedocumented in this encounter Additional Health Concerns Assessment Noted Time PHQ-9 Depression Total Score: 24 01/23/ 024 11:07 AM CDT documented as of this encounter Care Teams Pepper Cutter Relationship Specialty Start Date End Date Valentin Muñoz MD [address] [place] [address] [place] [address] PCP - General Internal Medicine 10/08/10 Valentin Muñoz MD [address] [place] [address] [place] [address] Assigned PCP 10/03/16 documented as of this encounter
--- OUTSIDE RECORDS SUMMARY | 2024-05-26 04:22 | XMS_ITS | Encounter Summary ---
Author Organization [facility] Address [address] [place] [address] Care Team Providers Care Fig Bar Machine Operator Name Role Phone Valentin Muñoz MD Primary Care Provider [phone] Valentin Muñoz MD Unavailable [phone] Reason for Referral * Therapeutic Imaging/IR (Routine) - Pending Review Specialty Diagnoses / Procedures Referred By Contac t Referred To Contact Radiology. Diagnoses Acute deep vein thrombosis (DVT) of iliac vein of right lower extremity (H) Procedures IR Follow Up Visit Outpatient [facility]ood Branham [facility] [address] [place] [address] Referral ID Status Reason Start Date Expiration Date V isits Requested Visits Authorized [id number] Pending Review 03/11/2024 03/11/2025 1 1 Reason for Visit * Therapeutic Imaging/IR (Routine) - Pending Review Specialty Diagnoses / Procedures Referred By Contac t Referred To Contact Radiology. Diagnoses Acute deep vein thrombosis (DVT) of iliac vein of right lower extremity (H) Procedures IR Follow Up Visit Outpatient Masood Branham MD [facility] [address] [place] [address] Referral ID Status Reason Start Date Expiration Date V isits Requested Visits Authorized [id number] Pending Review 03/11/2024 03/11/2025 1 1 Encounter Details Date Type Department Care Team (Late st Contact Info) Description 03/12/2024 12:49 PM CDT - 03/12/2024 11:59 PM CDT Hospital Encounter [facility] Interventional Radiology [address] [place] [address] Masood Branham MD [facility] [address] [place] [address] Non-Fv Credentialed Provider, Radiology Acute deep vein [...] any clubs o r organizations such as hoahaoism groups, unions, fraternal or athletic groups, or [...] Answer Date Recorded PHQ-2 Score 2 02/19/2024 [facility] of Occupat ional [facility] - Occupational Stress Questionnaire Answer Date Recorded [...] Sig Dispensed Refills Start Date End Date FLUoxetine (PROZAC) 40 MG capsule Take 40 mg by mouth daily 02/07/2024 gabapentin (NEURONTIN) 600 MG tabletIndications:CAROLE (generalized anxiety disorder) Take 2 tablets (1,200 mg) by mouth at bedtime 30 tablet 2 02/23/2024 risperiDONE (RISPERDAL) 2 MG tablet Take 1 tablet by mouth at bedtime 02/06/2024 traZODone (DESYREL) 100 MG tablet Take 100 mg by mouth at bedtime 02/06/2024 acetaminophen (TYLENOL) 325 MG tabletIndications:Acute saddle pulmonary embolism with acute cor pulmonale (H) Take 2 tablets (650 mg) by mouth every 4 hours as needed for mild pain or other (and adjunct with moderate or severe pain or per patient request) 02/22/2024 04/04/2024 amLODIPine (NORVASC) 10 MG tabletIndications:Essent ial hypertension Take 1 tablet (10 mg) by mouth daily HOLD IF SBP <130 90 tablet 3 02/23/2024 04/08/2024 hydrOXYzine (VISTARIL) 50 MG capsule Take 50 mg by mouth 3 times daily as needed for anxiety 02/06/2024 04/04/2024 LORazepam (ATIVAN) 1 MG tablet Take 1 mg by mouth daily as needed for anxiety 04/04/2024 rivaroxaban ANTICOAGULANT (XARELTO) 2.5 MG TABS tabletIndications:DVT-PE Treatment Take 6 tablets (15 mg) by mouth 2 times daily (with meals) for 19 days, THEN 8 tablets (20 mg) daily (with dinner) for 30 days. 468 tablet 02/22/2024 04/04/2024 rivaroxaban ANTICOAGULANT (XARELTO) 20 MG TABS tabletIndications:Acute deep vein thrombosis (DVT) of iliac vein of right lower extremity (H),Acute saddle pulmonary embolism with acute cor pulmonale (H) Take 1 tablet (20 mg) by mouth daily (with dinner) 90 tablet 02/28/2024 05/14/2024 documented as of this encounter Plan of Treatment Upcoming Encounters Date Type Department Care Team (Late st Contact Info) Description 06/18/2024 12:00 PM CDT Virtual Visit [address] [phone] Josephine Krishnan PA-C [address] [place] [address] 07/22/2024 5:00 PM INTERNATIONAL STUDENT COUNSELOR Appointment [facility] [address] [place] [phone] Roro Acevedo PA-C [address] [place], [place] [address] 08/01/2024 2:30 PM INTERNATIONAL STUDENT COUNSELOR Virtual Visit [facility] [address] [facility] [address] [place] [phone] [facility] Roro Craft PA-C [address] [place] [address] documented as of this encounter Procedures Procedure Name Priority Date/Time Associated Diagnosis Comments IR FOLLOW UP VISIT OUTPATIENT Routine 03/12/2024 2:12 PM CDT Acute deep vein thrombosis (DVT) of iliac vein of right lower extremity (H) documented in this encounter Results * IR Follow Up Visit Outpatient (03/12/2024 2:12 PM CDT) Narrative RADIANT - 03/13/2024 8:30 AM CDT This exam was marked as non-reportable because it will not be read by a radiologist or a [facility] non-radiologist provider. Masood Branham MD IMG IR ORDERABL ES RADIANT documented in this encounter Visit Diagnoses Diagnosis Acute deep vein thrombosis (DVT) of iliac vein of right lower extremity (H) documented in this encounter Additional Health Concerns Assessment Noted Time PHQ-9 Depression Total Score: 24 024 11:07 AM CDT documented as of this encounter Care Teams Fig Bar Machine Operator Relationship Specialty Start Date End Date Valentin Muñoz MD [address] [facility] [place] [address] PCP - General Internal Medicine 10/08/10 Valentin Muñoz MD [facility] [place] [phone] Assigned PCP 10/03/16 documented as of this encounter
--- OUTSIDE RECORDS SUMMARY | 2024-05-26 04:22 | XMS_ITS | Encounter Summary ---
Author Organization [place] Address [address] [place] [address]. [place] [address] Care Team Providers Care Host Hostess Name Role Phone Valentin Muñoz MD Primary Care Provider [phone] Valentin Muñoz MD Unavailable Encounter Details Date Type Department Care Team (Late st Contact Info) Description 03/12/2024 12:49 PM CDT - 03/12/2024 3:37 PM CDT Hospital Encounter [facility] [address] [place] [phone] Non-Fv Credentialed Provider, Radiology Sneha Kramer, [facility] [address] [place] [address] Discharge Disposition: Home or Self Care Social [...] How often do you attend chur or caodaism services? More than 4 times per year [...] Answer Date Recorded PHQ-2 Score 2 02/19/2024 [facility] Occupat ional [facility] - Occupational Stress Questionnaire Answer Date Recorded [...] 02/28/2024 05/14/2024 documented as of this encounter Progress Notes * Sneha Kramer APRN CNP - 03/12/2024 1:54 PM CDT Images from the original note were not included. Pk Beckford is here today for an evaluation of his right groin site which has been bleeding for 4 days. Pk Beckford is a 38 year old male who was hospitalized at on 02/18 with PE and RLE DVT s/p PE thrombectomy 02/19/24 and RLE DVT thrombectomy 02/20/24 with the R femoral vein and groin closed with a perclose. He was discharged home 02/23/24. 4 days ago he noted bleeding at the R groin site. His had been changing gauze and tape dressings twice daily since. He has been less active since to help decrease damage and bleeding from the site. He was contacted by the OP IR RN Makenna and wanted to come in to have the site evaluated. Pk was seen in room 13 in Care Suites. The R groin site is covered with a gauze pad and tape. The skin site appears clean. There is a small amount of dark blood coming from the ~ 4 mm puncture site. With assistance from Janna FAROOQ the site was cleaned with chloraprep and allowed to dry. The dermabond was applied to the open puncture site, a few times and skin was held open until the dermabond was dry. No dressing placed over the site. Pk was walked to the [employer] without issue and left by walking up the stairs to the skywalk and bowie parking lot. He was told to call Makenna if there were any problems. Total time: 35 minutes Laila Albarado [facility] Interventional Radiology BRICK SETTER OPERATOR ([phone]) (phone [phone]) documented in this encounter Plan of Treatment Upcoming Encounters Date Type Department Care Team (Late st Contact Info) Description 06/18/2024 12:00 PM CDT Virtual Visit [facility] [place] [address] [place] [phone] Josephine Krishnan PA-C [address] [place] [id number] 07/22/2024 5:00 PM MILLING SUPERVISOR Appointment [facility] [address] [place] [phone] Roro Acevedo, CECI [address] [place] [address] [phone] 08/01/2024 2:30 PM MILLING SUPERVISOR Virtual Visit [facility] [address] [place] [phone] Roro Acevedo, CECI [address] [place] [phone] documented as of this encounter Visit Diagnoses Not on filedocumented in this encounter Additional Health Concerns Assessment Noted Time PHQ-9 Depression Total Score: 24 024 11:07 AM CDT documented as of this encounter Care Teams Host Hostess Relationship Specialty Start Date End Date Valentin Muñoz MD [address] [place] [address] [place] [address] PCP - General Internal Medicine 10/08/10 Valentin Muñoz MD [address] [place] [address] [place] [address] Assigned PCP 10/03/16 documented as of this encounter
--- OUTSIDE RECORDS SUMMARY | 2024-05-26 04:22 | XMS_ITS | Encounter Summary ---
Author Organization [place] Address [address] [place] [address] Care Team Providers Care Rn Hyperbaric Name Role Phone Valentin Muñoz MD Primary Care Provider [phone] Valentin Muñoz MD Unavailable [phone] Encounter Details Date Type Department Care Team (Latest Contact Info) Description 04/01/2024 Travel Social History Tobacco Use Types Packs/Day [...] How often do you attend chur or synagogue services? More than 4 times per year 04/04/2023 Do you belong to any clubs o r organizations such as congregational groups, unions, fraternal or athletic groups, or [...] Answer Date Recorded PHQ-2 Score 2 02/19/2024 [facility] - Occupational [...] Description 06/18/2024 12:00 PM CDT Virtual Visit [facility] [place] [address] [place] [phone] Josephine Krishnan PA-C [address] [place] [id number] 07/22/2024 5:00 PM RETOUCHER Appointment [facility] [address] [place] [phone] Roro Acevedo, CECI [address] [place] [address] [phone] 08/01/2024 2:30 PM RETOUCHER Virtual Visit [facility] [address] [place] [address] [address] [place] [phone] Roro Acevedo, CECI [address] [place] [phone] documented as of this encounter Visit Diagnoses Not on filedocumented in this encounter Additional Health Concerns Assessment Noted Time PHQ-9 Depression Total Score: 24 024 11:07 AM CDT documented as of this encounter Care Teams Rn Hyperbaric Relationship Specialty Start Date End Date Valentin Muñoz MD [address] [place] [address] [place] [address] PCP - General Internal Medicine 10/08/10 Valentin Muñoz MD [address] [place] [address] [place] [address] Assigned PCP 10/03/16 documented as of this encounter
--- OUTSIDE RECORDS SUMMARY | 2024-05-26 04:22 | XMS_ITS | Encounter Summary ---
Author Organization [facility] Address [address] [place] [address] Care Team Providers Care Community Health Nursing Director Name Role Phone Valentin Muñoz MD Primary Care Provider [phone] Valentin Muñoz MD Unavailable [phone] Reason for Referral * Diagnostic Imaging Ultrasound (Routine) - Pending Review Specialty Diagnoses / Procedures Referred By Jsac t Referred To Contact Radiology. Diagnoses Acute deep vein thrombosis (DVT) of iliac vein of right lower extremity (H) Procedures US Lower Extremity Venous Duplex Right Omero Pham MD [facility] [address] [place] [address] Referral ID Status Reason Start Date Expiration Date V isits Requested Visits Authorized [id number] Pending Review 03/04/2024 03/04/2025 1 1 Reason for Visit * Diagnostic Imaging Ultrasound (Routine) - Pending Review Specialty Diagnoses / Procedures Referred By Jsac t Referred To Contact Radiology. Diagnoses Acute deep vein thrombosis (DVT) of iliac vein of right lower extremity (H) Procedures US Lower Extremity Venous Duplex Right Omero Pham MD [facility] [address] [place] [address] Referral ID Status Reason Start Date Expiration Date V isits Requested Visits Authorized [id number] Pending Review 03/04/2024 03/04/2025 1 1 Encounter Details Date Type Department Care Team (Late st Contact Info) Description 04/01/2024 1:46 PM CDT - 04/01/2024 11:59 PM CDT Hospital Encounter [facility] [address] [place] [address] Omero Pham MD [facility] [address] [place] [address] Acute deep vein thrombosis (DVT) of iliac [...] How often do you attend chur or amish services? More than 4 times per year [...] Answer Date Recorded PHQ-2 Score 2 02/19/2024 [facility] - Occupational Stress Questionnaire Answer [...] place to sleep or slept in a retirement (including now)? No 04/04/2023 Adolescent Education Answer [...] Description 06/18/2024 12:00 PM CDT Virtual Visit [facility] [address] [place] [address] Josephine Krishnan PA-C [address] [address] 07/22/2024 5:00 PM GRAIN ELEVATOR MAN Appointment [facility] [address] [place] [phone] Roro Acevedo PA-C [address] [place], [place] [phone] 08/01/2024 2:30 PM GRAIN ELEVATOR MAN Virtual Visit [facility] [address] [place] [address] [address] [place] [phone] Roro Acevedo PA-C [address] [place] [address] [phone] Pending Results Name Type Priority Associated Diagnoses Date /Time US Lower Extremity Venous Duplex Right Imaging Routine Acute deep vein thrombosis (DVT) of iliac vein of right lower extremity (H) 04/01/2024 2:09 PM CDT documented as of this encounter Procedures Procedure Name Priority Date/Time Associated Diagnosis Comments US LOWER EXTREMITY VENOUS DUPLEX RIGHT Routine 04/01/2024 2:09 PM CDT Acute deep vein thrombosis (DVT) of iliac vein of right lower extremity (H) Procedure Note - Gali Gardner DO - 04/01/2024 2:09 PM CDTThis note is in progress. ULTRASOUND RIGHT LOWER EXTREMITY VENOUS DUPLEX 04/01/2024 2:09 PM CLINICAL HISTORY/INDICATION: Status post right lower extremity venous thrombectomy done on 02/[address] Pham. One-month follow-up. Acute deep vein thrombosis (DVT) [...] thrombus in the right great saphenous vein. documented in this encounter Visit Diagnoses Diagnosis Acute deep vein thrombosis (DVT) of iliac vein of right lower extremity (H) documented in this encounter Additional Health Concerns Assessment Noted Time PHQ-9 Depression Total Score: 24 024 11:07 AM CDT documented as of this encounter Care Teams Community Health Nursing Director Relationship Specialty Start Date End Date Valentin Muñoz MD [address] [place] [address] [place] [address] PCP - General Internal Medicine 10/08/10 Valentin Muñoz MD [address] [place] [address] [place] [address] Assigned PCP 10/03/16 documented as of this encounter
--- OUTSIDE RECORDS SUMMARY | 2024-05-26 04:22 | XMS_ITS | Encounter Summary ---
Author Organization [place] Address [address] [place] [address]. [place] [address] Care Team Providers Care Biomedical Engineering Supervisor Name Role Phone Valentin Muñoz MD Primary Care Provider [phone] Valentin Muñoz MD Unavailable [phone] Reason for Visit * Reason Comments RECHECK Encounter Details Date Type Department Care Team (Late st Contact Info) Description 04/01/2024 2:40 PM CDT Office Visit [facility] [employer] [address] [facility] [address] [place] [phone] Omero Pham MD [facility] [address] [place], [place] [address] Acute deep vein thrombosis (DVT) of iliac [...] often do you attend chur ch or jehovah's witness services? More than 4 times per year 04/04/2023 Do you belong to any clubs o r organizations such as confucianism groups, unions, fraternal or athletic groups, or [...] Answer Date Recorded PHQ-2 Score 2 02/19/2024 [facility]at ional Health - [...] Sign Reading Time Taken Comments Blood Pressure 120/82 04/01/2024 2:28 PM CDT Pulse 106 04/01/2024 2:28 PM CDT Temperature - - Respiratory Rate - - Oxygen Saturation - - Inhaled Oxygen Concentration - - Weight - - Height - - Body Mass Index - - documented in this encounter Patient Instructions * Patient Instructions* Minerva Campbell RN - 04/01/2024 2:40 PM CDT Continue on your blood thinner. There is some old blood clot in your leg, we don't need to do anything about it. It is improved. Ifyou not having any new swelling or pain we don't need to do anything about it. The blood thinner will help your body over time break this down. If you have increase swelling in your legs, let your doctor know. Follow up with Dr. Burris on 04/09. She will determine how long you will need to be on the blood thinner. Makenna Campbell RN IR nurse clinician [phone] documented in this encounter Progress Notes * Gerri Kowalski - 04/01/2024 2:40 PM CDT [facility] Patient is here for a follow up. Pt is currently taking Xarelto. BP 120/82 (BP Location: Right arm, Patient Position: Chair, Cuff Size: Adult Large) Pulse 106 The provider has been notified that the patient has no concerns. Questions patient would like addressed today are: N/A. Refills are needed: N/A Has homecare services and agency name: Abigail Kowalski MA * Omero Pham MD - 04/01/2024 2:40 PM CDT VASCULAR OUTPATIENT CONSULT OR VISIT PHYSICIAN: Dr. Omero Pham LOCATION: [facility] Ant Beckford Date of : 1985 Age: [age] year old Date of Service: 04/01/2024 PRIMARY CARE PROVIDER: Valentin Muñoz HPI: Ant Beckford is a 38 year old male with a past medical history of hypertension, anxiety, depression, who was admitted to [facility] on 02/19/2024 for acute hypoxic respiratory failure secondary to saddle pulmonary embolism with right heart strain prompting medical thrombectomy of sa ddle pulmonary embolism on 02/19/[address] Nas Mckeon. Due to extensive DVT in the right lower extremity mechanical thrombectomy was then performed on 02/20/2024. The patient did notify our office on 03/11/2024 with concerns of bleeding from the right groin site. The patient was then brought to [facility] where he was examined by our nurse practitioner. Dermabond was applied to that site and hemostasis was obtained. The patient states he has not had any further issues with groin site and healing. Today, the patient denies shortness of breath, chest pain or leg swelling or leg pain. His breathing is back to baseline. He is on Xarelto and is tolerating well. He has a upcoming appointment with hematology on 04/09/2024. They will be managing his anticoagulation. PHH: Past Medical History: Diagnosis Date Hypertension Obese FAITH (obstructive sleep apnea) 03/24/2022 Past Surgical History: Procedure Laterality Date IR FOLLOW UP VISIT OUTPATIENT 03/12/2024 IR LOWER EXTREMITY VENOGRAM RIGHT 02/20/2024 IR PULMONARY ANGIOGRAM BILATERAL 02/19/2024 ORTHOPEDIC SURGERY Left 2001 left foot surgery VASECTOMY Bilateral 12/14/2018 Procedure: Bilateral vasectomy; Surgeon: Mark Miller MD; Location: [facility] OR ALLERGIES: Cephalexin MEDS: Current Outpatient Medications: amLODIPine (NORVASC) 10 MG tablet, Take 1 tablet (10 mg) by mouth daily HOLD IF SBP <130, Disp: 90 tablet, Rfl: 3 FLUoxetine (PROZAC) 40 MG capsule, Take 40 mg by mouth daily, Disp: , Rfl: gabapentin (NEURONTIN) 600 MG tablet, Take 2 tablets (1,200 mg) by mouth at bedtime, Disp: 30 tablet, Rfl: 2 risperiDONE (RISPERDAL) 2 MG tablet, Take 1 tablet by mouth at bedtime, Disp: , Rfl: rivaroxaban ANTICOAGULANT (XARELTO) 20 MG TABS tablet, Take 1 tablet (20 mg) by mouth daily (with dinner), Disp: 90 tablet, Rfl: 0 traZODone (DESYREL) 100 MG tablet, Take 100 mg by mouth at bedtime, Disp: , Rfl: acetaminophen (TYLENOL) 325 MG tablet, Take 2 tablets (650 mg) by mouth every 4 hours as needed formild pain or other (and adjunct with moderate or severe pain or per patient request), Disp: , Rfl: hydrOXYzine (VISTARIL) 50 MG capsule, Take 50 mg by mouth 3 times daily as needed for anxiety, Disp: , Rfl: LORazepam (ATIVAN) 1 MG tablet, Take 1 mg by mouth daily as needed for anxiety, Disp: , Rfl: rivaroxaban ANTICOAGULANT (XARELTO) 2.5 MG TABS tablet, Take 6 tablets (15 mg) by mouth 2 times daily (with meals) for 19 days, THEN 8 tablets (20 mg) daily (with dinner) for 30 days. (Patient not taking: Reported on 04/01/2024), Disp: 468 tablet, Rfl: 0 SOCIAL HABITS: History Smoking Status Never Smokeless Tobacco Never Social History Substance and Sexual Activity Alcohol use: Yes History Drug Use No FAMILY HISTORY: Family History Problem Relation Age of Onset Hypertension Mother Sleep Apnea Mother Diabetes Mother Diabetes Father Hypertension Sister REVIEW OF SYSTEMS: A 12 point ROS was reviewed and except for what is listed in the HPI above, all others are negative PE: BP 120/82 (BP Location: Right arm, Patient Position: Chair, Cuff Size: Adult Large) Pulse 106 Wt Readings from Last 1 Encounters: 02/28/24 (!) 372 lb 4.8 oz (168.9 kg) There is no height or weight on file to calculate BMI. EXAM: GENERAL: This is a well-developed 38 year old male who appears his stated age EYES: Grossly normal. MOUTH: Buccal mucosa normal MUSCULOSKELETAL: Grossly normal and both lower extremities are intact. HEME/LYMPH: No lymphedema NEUROLOGIC: Focally intact, Alert and oriented x 3. PSYCH: appropriate affect INTEGUMENT: No open lesions or ulcers Lower extremity: No visible swelling, the patient is obese. Distal pulses are doppler DIAGNOSTIC STUDIES: Images: US Lower Extremity Venous Duplex Right Result Date: 04/01/2024 ULTRASOUND RIGHT LOWER EXTREMITY VENOUS DUPLEX 04/01/2024 2:09 PM CLINICAL HISTORY/INDICATION: Status post right lower extremity venous thrombectomy done on 02/[address] Pham. One-month follow-up.Acute deep vein thrombosis (DVT) of iliac vein [...] thrombosis. Resolution of thrombus in the right gr eat saphenous vein. The contralateral left common femoral vein demonstrates normal compressibility,spectral waveform, color flow and augmentation. IMPRESSION: 1. Persistent occlusive deep vein thrombosis in the right femoral and popliteal veins. 2. Resolution of deep vein thrombosis in the right external iliac, common femoral, profunda femoral,posterior tibial and peroneal veins. Resolution of superficial thrombus in the right great saphenous vein. IR Follow Up Visit Outpatient Result Date: 03/13/2024 This exam was marked as non-reportable because it will not be read by a radiologist or a [place] non-radiologist provider. XR Chest Port 1 View Result Date: 03/07/2024 For Patients: As a result of the 21st Century Cures Act, medical imaging exams and [...] visualized pneumothorax. Impression: No acute cardiopulmonary disease. Dictatedby Bg Woodson MD @ 03/07/2024 4:47:33 PM (Electronically Signed) LABS: Sodium Date Value Ref Range Status 02/22/2024 134 (L) 135 - 145 mmol/L Final 02/21/2024 131 (L) 135 - 145 mmol/L Final 02/20/2024 135 135 - 145 mmol/L Final 08/08/2020 139 133 - 144 mmol/L Final 03/21/2018 140 133 - 144 mmol/L Final 02/08/2017 139 133 - 144 mmol/L Final Urea Nitrogen Date Value Ref Range Status 02/22/2024 12.7 6.0 - 20.0 mg/dL Final 02/21/2024 16.9 6.0 - 20.0 mg/dL Final 02/20/2024 20.6 (H) 6.0 - 20.0 mg/dL Final 01/28/2022 16 7 - 30 mg/dL Final 08/08/2020 12 7 - 30 mg/dL Final 03/21/2018 14 7 - 30 mg/dL Final 02/08/2017 12 7 - 30 mg/dL Final Hemoglobin Date Value Ref Range Status 02/22/2024 12.2 (L) 13.3 - 17.7 g/dL Final 02/21/2024 13.7 13.3 - 17.7 g/dL Final 02/21/2024 13.3 13.3 - 17.7 g/dL Final 08/08/2020 15.8 13.3 - 17.7 g/dL Final Platelet Count Date Value Ref Range Status 02/20/2024 203 150 - 450 10e3/uL Final 02/19/2024 246 150 - 450 10e3/uL Final 01/30/2024 321 150 - 450 10e3/uL Final 08/08/2020 323 150 - 450 10e9/L Final Assessment/Plan: This is a pleasant 38-year-old male who presented to the emergency room at [facility] on 02/19/2024 with acute hypoxic respiratory failure. CT chest PE showed bilateral pulmonary embolism including large saddle embolism. The patient underwent a successful mechanical thrombectomy withDr. Dario Mckeon. A lower extremity venous ultrasound was also performed that showed extensive deep vein thrombosis in the right lower extremity from at least the right external iliac to the ankle as well as superficial thrombus in the right small and great saphenous veins. The patient then underwent a successful mechanical thrombectomy in the right common femoral, femoral and above-knee popliteal veins. Large volume of thrombus was removed. The segments were widely patent at completion. Therewas concern at that time for lack of inflow through the calf veins and popliteal veins into the femoral vein and high suspicion for recurrence of thrombosis. The patient was continued on aggressive he parinization. Patient was then discharged to home on Xarelto. I discussed with the patient the results of the right lower extremity venous ultrasound that was performed today. There is occlusive deep vein thrombosis in the right femoral and popliteal veins. There is resolution of the deep vein thrombosis in the right external iliac, common femoral, profunda femoral, posterior tibial and peroneal veins. There is resolution of the superficial thrombus in the right greater saphenous vein. At this time I discussed with the patient that since he is asymptomatic that no intervention is warranted. It is our hope that with the use of anticoagulation that further improvement of the right lower extremity deep vein thrombosis will improve over time. The patient has been instructed to elevate his legs is much as possible. Due to body habitus, compression stockings would likely be ineffective. The patient has been instructed to contact us if he has concerns or questions peers at this time wewill no longer need to follow this patient. This was a in person visit in which 40 minutes of total time was spent (either in gxoy-xh-bglp or khf-tbrd-vx-face time). Dr. Omero Pham MD Interventional Radiology Pager: [phone] [facility] documented in this encounter Plan of Treatment Upcoming Encounters Date Type Department Care Team (Late st Contact Info) Description 06/18/2024 12:00 PM CDT Virtual Visit [address] [address] Josephine Krishnan PA-C [address] [facility] [address] [place], [place] [phone] 07/22/2024 5:00 PM CUSTOMER SUPPORT CONSULTANT Appointment [facility] [address] [place] [phone] Roro Acevedo, CECI [address] [place] [address] 08/01/2024 2:30 PM CUSTOMER SUPPORT CONSULTANT Virtual Visit [facility] [address] [phone] Roro Acevedo, CECI [address] [place] [address] documented as of this encounter Visit Diagnoses Diagnosis Acute deep vein thrombosis (DVT) of iliac vein of right lower extremity (H)- Primary documented in this encounter Additional Health Concerns Assessment Noted Time PHQ-9 Depression Total Score: 24 024 11:07 AM CDT documented as of this encounter Care Teams Biomedical Engineering Supervisor Relationship Specialty Start Date End Date Valentin Muñoz MD [address] [place] [address] PAM BELL [address] PCP - General Internal Medicine 10/08/10 Valentin Muñoz MD [address] [place] [address] P[place] [address] Assigned PCP 10/03/16 documented as of this encounter
--- OUTSIDE RECORDS SUMMARY | 2024-05-26 04:22 | XMS_ITS | Encounter Summary ---
Author Organization [place] Address [address] [place] [address]. [place] [address] Care Team Providers Care Appeals Assistant Name Role Phone Valentin Muñoz MD Primary Care Provider [phone] Valentin Muñoz MD Unavailable [phone] Omero hPam MD Unavailable [phone] Roro Acevedo PA-C Unavailable [phone] Reason for Visit * Reason Onset Date Comments Medication Request 05/14/2024 Encounter Details Date Type Department Care Team (Late st Contact Info) Description 05/14/2024 MyC Medical Advice [facility] [place] [address] [facility] [address] [place] [address] Valentin Muñoz MD [address] [facility] [place] [address] Medication Request Social History Tobacco Use Types Packs/Day Years [...] week 04/04/2023 How often do you attend caro center or jew services? More than 4 times per year 04/04/2023 Do you belong to any clubs o r organizations such as denominational groups, unions, fraternal or athletic groups, or [...] Answer Date Recorded PHQ-2 Score 2 02/19/2024 [facility] of Occupat ional [facility] - Occupational Stress Questionnaire Answer Date [...] Description 06/18/2024 12:00 PM CDT Virtual Visit [facility] [address] [phone] Josephine Krishnan PA-C [address] [facility] [address] [place] [address] 07/22/2024 5:00 PM ASSISTANT REFINERY OPERATOR Appointment [facility] [address] [place] [phone] Roro Acevedo, CECI [address] [place] [address] 08/01/2024 2:30 PM ASSISTANT REFINERY OPERATOR Virtual Visit [facility] [address] [place] [address] 105 [place] [phone] Roro Acevedo PA-C [address] [place] [address] 906014 documented as of this encounter Visit Diagnoses Not on filedocumented in this encounter Additional Health Concerns Assessment Noted Time PHQ-9 Depression Total Score: 24 024 11:07 AM CDT documented as of this encounter Care Teams Appeals Assistant Relationship Specialty Start Date End Date Toni, Valentin E, MD [address] [facility] [place] [address] PCP - General Internal Medicine 10/08/10 Valentin Muñoz MD [address] [facility] [place] [address] Assigned PCP 10/03/16 Omero Pham MD [facility] RADIOLOGIC CONS [address] [place], [place] [address] Assigned Heart and Vascular Provider 04/12/24 Roro Acevedo PAShannaC [address] [place], [place] [address] Assigned Cancer Care Provider 04/12/24 documented as of this encounter
--- OUTSIDE RECORDS SUMMARY | 2024-05-26 04:22 | XMS_ITS | Encounter Summary ---
Author Organization [place] Address [address] [place] [address]. [place] [address] Care Team Providers Care Hospital Pharmacy Director Name Role Phone Valentin Muñoz MD Primary Care Provider [phone] Valentin Muñoz MD Unavailable [phone] Reason for Visit * Reason Onset Date Comments Direct Oral Anticoagulant 03/12/2024 Encounter Details Date Type Department Care Team (Latest Contact Info) Description 03/12/2024 Documentation Only [facility] [address] [place] [phone] Isamar Chen RN Direct Oral Anticoagulant Social History Tobacco [...] often do you attend chur ch or mu-ism services? More than 4 times per year [...] Answer Date Recorded PHQ-2 Score 2 02/19/2024 [facility] of Occupat ional Health - Occupational Stress [...] as of this encounter Progress Notes * Isamar Chen, YOLIS - 03/12/2024 4:40 PM CDT Anticoagulant Therapeutic Duplication Duplicate orders identified: same medication but different dose, form, frequency or route Duplicate orders appropriate RX on file for rivaroxaban starting therapy dose and rivaroxaban maintenance therapy to follow Active anticoagulant: rivaroxaban (Xarelto) Plan made per [facility] anticoagulation protocol. Isamar Chen RN 03/12/2024 documented in this encounter Plan of Treatment Upcoming Encounters Date Type Department Care Team (Late st Contact Info) Description 06/18/2024 12:00 PM CDT Virtual Visit [facility] [place] [address] [place] [phone] Josephine Krishnan PA-C [address] [facility] [address] [place] [address] 07/22/2024 5:00 PM RADIATOR SPECIALIST Appointment [facility] [address] [place] [phone] Roro Acevedo PA-C [address] [place] [address] 08/01/2024 2:30 PM RADIATOR SPECIALIST Virtual Visit [facility] [address] [phone] Roro Acevedo PA-C [address] [place], [place] [address] documented as of this encounter Visit Diagnoses Not on filedocumented in this encounter Additional Health Concerns Assessment Noted Time PHQ-9 Depression Total Score: 24 024 11:07 AM CDT documented as of this encounter Care Teams Hospital Pharmacy Director Relationship Specialty Start Date End Date Valentin Muñoz MD [address] [place] [address] [place] [address] PCP - General Internal Medicine 10/08/10 Valentin Muñoz MD [address] [place] [address] [place] [address] Assigned PCP 10/03/16 documented as of this encounter
--- OUTSIDE RECORDS SUMMARY | 2024-05-26 04:22 | XMS_ITS | Encounter Summary ---
Author Organization [place] Address [address] [place] [address] Care Team Providers Care Manager Paid Name Role Phone Valentin Muñoz MD Primary Care Provider [phone] Valentin Muñoz MD Unavailable [phone] Encounter Details Date Type Department Care Team (Latest Contact Info) Description 04/09/2024 Travel Social History Tobacco Use Types Packs/Day [...] How often do you attend chur or judaism services? More than 4 times per year [...] Answer Date Recorded PHQ-2 Score 2 02/19/2024 [facility] of Occupat ional Health [...] 06/18/2024 12:[address] PM CDT Virtual Visit [facility] [place] [address] [place] [address] Josephine Krishnan PA-C [address] [place] [id number] 07/22/2024 5:00 PM FOOT CASTER Appointment [facility] [address] [place] [phone] Roro Acevedo, CECI [address] [place] [address] 954164 08/01/2024 2:30 PM FOOT CASTER Virtual Visit [facility] [address] [place] [address] 105 [place] [phone] Roro Acevedo, CECI [address] [place] [address] 875784 documented as of this encounter Visit Diagnoses Not on filedocumented in this encounter Additional Health Concerns Assessment Noted Time PHQ-9 Depression Total Score: 24 024 11:07 AM CDT documented as of this encounter Care Teams Manager Paid Relationship Specialty Start Date End Date Valentin Muñoz MD [address] [place] [address] [place] [address] PCP - General Internal Medicine 10/08/10 Valentin Muñoz MD [address] [place] [address] [place] [address] Assigned PCP 10/03/16 documented as of this encounter
--- OUTSIDE RECORDS SUMMARY | 2024-05-26 04:22 | XMS_ITS | Encounter Summary ---
Author Organization [place] Address [address] [place] [address] Care Team Providers Care Chief Payroll Clerk Name Role Phone Valentin Muñoz MD Primary Care Provider [phone] Valentin Muñoz MD Unavailable [phone] Encounter Details Date Type Department Care Team (Latest Contact Info) Description 04/04/2024 Travel Social History Tobacco Use Types Packs/Day [...] Answer Date Recorded PHQ-2 Score 2 02/19/2024 [facility] of Occupat ional Health - Occupational [...] place to sleep or slept in a fdc (including now)? No 04/04/2023 Adolescent Education Answer [...] Description 06/18/2024 12:00 PM CDT Virtual Visit [facility] [place] [address] [place] [address] Josephine Krishnan PA-C [address] [place] [id number] 07/22/2024 5:00 PM CORPORATE RECEPTIONIST Appointment [facility] [address] [place] [phone] Roro Acevedo, CECI [address] [place] [address] 8428[address] 08/01/2024 2:30 PM CORPORATE RECEPTIONIST Virtual Visit [facility] [address] [place] [address] 105 [place] [phone] Roro Acevedo, CECI [address] [place] [address]69[address] documented as of this encounter Visit Diagnoses Not on filedocumented in this encounter Additional Health Concerns Assessment Noted Time PHQ-9 Depression Total Score: 24 024 11:07 AM CDT documented as of this encounter Care Teams Chief Payroll Clerk Relationship Specialty Start Date End Date Valentin Muñoz MD [address] [place] [address] [place] [address] PCP - General Internal Medicine 10/08/10 Valentin Muñoz MD [address] [place] [address] [place] [address] Assigned PCP 10/03/16 documented as of this encounter
--- OUTSIDE RECORDS SUMMARY | 2024-05-26 04:22 | XMS_ITS | Encounter Summary ---
Author Organization [facility] Address [address] [place] [address] Care Team Providers Care Epoxy Fabrication Supervisor Name Role Phone Valentin Muñoz MD Primary Care Provider [phone] Valentin Muñoz MD Unavailable Encounter Details Date Type Department Care Team (Latest Contact Info) Description 03/28/2024 Travel Social History Tobacco Use Types Packs/Day [...] How often do you attend chur or lutheran services? More than 4 times per year 04/04/2023 Do you belong to any clubs o r organizations such as spiritism groups, unions, fraternal or athletic groups, or [...] 02/19/2024 [facility] of Occupat ional Health - Occupational [...] Description 06/18/2024 12:00 PM CDT Virtual Visit [facility] [place] [address] [place] [address] Josephine Krishnan PA-C [address] [place] [id number] 07/22/2024 5:00 PM ACCOUNT SUPPORT MANAGER Appointment [facility] [address] [place] [phone] Roro Acevedo, CECI [address] [place] [address] 685154 08/01/2024 2:30 PM ACCOUNT SUPPORT MANAGER Virtual Visit [facility] [address] [place] [address] 105 [place] [phone] Roro Acevedo, CECI [address] [place] [address] 325744 documented as of this encounter Visit Diagnoses Not on filedocumented in this encounter Additional Health Concerns Assessment Noted Time PHQ-9 Depression Total Score: 24 024 11:07 AM CDT documented as of this encounter Care Teams Epoxy Fabrication Supervisor Relationship Specialty Start Date End Date Valentin Muñoz MD [address] [place] [address] [place] [address] PCP - General Internal Medicine 10/08/10 Valentin Muñoz MD [address] [place] [address] [place] [address] Assigned PCP 10/03/16 documented as of this encounter
--- OUTSIDE RECORDS SUMMARY | 2024-05-26 04:23 | XMS_ITS | Encounter Summary ---
Author Organization [place] Address [address] [place] [address] Care Team Providers Care Shirt Bander Name Role Phone Valentin Muñoz MD Primary Care Provider [phone] Valentin Muñoz MD Unavailable [phone] Reason for Referral * Diagnostic Imaging Ultrasound (Routine) - Pending Review Specialty Diagnoses / Procedures Referred By Jazzy arndt Referred To Contact Radiology. Diagnoses Right calf pain Procedures US Lower Extremity Venous Duplex Right Valentin Muñoz MD [address] [facility] [place] [address] Referral ID Status Reason Start Date Expiration Date V isits Requested Visits Authorized [id number] Pending Review 02/19/2024 02/18/2025 1 1 Reason for Visit * Auth/Cert Specialty Diagnoses / Procedures Referred By Jazzy arndt Referred To Contact EMERGENCY MEDICINE Diagnoses Acute deep vein thrombosis (DVT) of iliac vein of right lower extremity (H) Acute saddle pulmonary embolism with acute cor pulmonale (H) Emergency Dept 64[address] [place] [address] Referral ID Status Reason Start Date Expiration Date Visits Re quested Visits Authorized [id number] 1 1 Encounter Details Date Type Department Care Team (Latest Contact Info) Description 02/19/2024 2:37 PM CDT - 02/19/2024 3:31 PM CDT Hospital Encounter [facility] [address] [place] [phone] Valentin Muñoz MD [address] [facility] [place] [phone] Right calf pain Discharge Disposition: Home or [...] How often do you attend chur or episcopal services? More than 4 times [...] Answer Date Recorded PHQ-2 Score 2 02/19/2024 [facility] [place] of Occupat ional Health - Occupational Stress [...] request) 02/22/2024 04/04/2024 amLODIPine (NORVASC) 10 MG tabletIndications:Essen tial hypertension Take 1 tablet (10 mg) by mouth daily HOLD IF SBP <130 90 tablet 3 02/23/2024 04/08/2024 amLODIPine (NORVASC) 10 MG tabletIndications:Essen tial hypertension [...] mouth daily 30 tablet 2 02/24/2024 02/23/2024 hydrOXYzine (VISTARIL) 50 MG capsule Take 50 mg by mouth 3 times daily as needed for anxiety 02/06/2024 04/04/2024 lisinopril-hydrochlorot hiazide (ZESTORETIC) 20-25 MG tabletIndications:Essen tial hypertension TAKE 2 TABLETS DAILY 180 tablet 3 02/27/2023 02/22/2024 LORazepam (ATIVAN) 1 MG tablet Take 1 mg by mouth daily as needed for anxiety 04/04/2024 potassium chloride misa ER (KLOR-CON M10) 10 MEQ CR tablet Take 10 mEq by mouth daily 02/06/2024 02/22/2024 rivaroxaban ANTICOAGULANT (XARELTO) 2.5 MG TABS tabletIndications:DVT-P E Treatment Take 6 tablets (15 mg) by mouth 2 times daily (with meals) for 19 days, THEN 8 tablets (20 mg) daily (with dinner) for 30 days. 468 tablet 02/22/2024 04/04/2024 documented as of this encounter Plan of Treatment Upcoming Encounters Date Type Department Care Team (Late st Contact Info) Description 06/18/2024 12:00 PM CDT Virtual Visit [facility] [place] [address] [place] [phone] Josephine Krishnan PA-C [address] [place] [address] 07/22/2024 5:00 PM PALM GATHERER Appointment [facility] [address] [place] [phone] Roro Acevedo PA-C [address] [place] [address] [id number] 08/01/2024 2:30 PM PALM GATHERER Virtual Visit [facility] [address] [place] [address] 105 [place] [phone] Roro Acevedo PA-C [address] [place] [address] documented as of this encounter Procedures Procedure [...] patient was also short of breath. GALI GILES, DO Narrative 02/19/2024 3:33 PM CDT US [...] breath. GALI GILES DO Valentin Muñoz MD [facility] US ORDERABLES documented in this encounter Visit Diagnoses Diagnosis Right calf pain documented in this encounter Additional Health Concerns Assessment Noted Time PHQ-9 Depression Total Score: 24 024 11:07 AM CDT documented as of this encounter Care Teams Shirt Bander Relationship Specialty Start Date End Date Valentin Muñoz MD [address] [facility] [place] [address] PCP - General Internal Medicine 10/08/10 Valentin Muñoz MD [address] [facility] [place] [phone] Assigned PCP 10/03/16 documented as of this encounter
--- OUTSIDE RECORDS SUMMARY | 2024-05-26 04:23 | XMS_ITS | Encounter Summary ---
Author Organization [place] Address [address] [place] [address]. [place] [address] Care Team Providers Care Technology Education Teacher Name Role Phone Valentin Muñoz MD Primary Care Provider [phone] Valentin Muñoz MD Unavailable [phone] Reason for Referral * Diagnostic Imaging Ultrasound (Routine) - Pending Review Specialty Diagnoses / Procedures Referred By Contac t Referred To Contact Radiology. Diagnoses Acute deep vein thrombosis (DVT) of iliac vein of right lower extremity (H) Procedures US Lower Extremity Venous Duplex Right Omero Pham MD [facility] RADIOLOGIC CONS [address] [facility] [address] [place] [address] Referral ID Status Reason Start Date Expiration Date V isits Requested Visits Authorized [id number] Pending Review 03/04/2024 03/04/2025 1 1 Encounter Details Date Type Department Care Team (Late st Contact Info) Description 03/04/[address] [facility] [place] [address] [place] [phone] Minerva Campbell pipe cleaning machine operator deep vein thrombosis (DVT) of iliac [...] How often do you attend chur or zoroastrianism services? More than 4 times per year 04/04/2023 Do you belong to any clubs o r organizations such as rastafari groups, unions, fraternal or athletic groups, or [...] Date Recorded PHQ-2 Score 2 02/19/2024 [facility] of Occupat ionla Health - Occupational Stress Questionnaire Answer [...] 06/18/2024 12:00 PM CDT Virtual Visit [facility] [address] [phone] Josephine Krishnan PA-C [address] [place] [address] 07/22/2024 5:00 PM AUTOMATIC MACHINES SUPERVISOR Appointment [facility] [address] [place] [phone] oRro Acevedo, PAShannaC [address] [place] [phone] 08/01/2024 2:30 PM AUTOMATIC MACHINES SUPERVISOR Virtual Visit [facility] [address] [place] [phone] Roro Acevedo, KELLYC [address] [place] [address] Pending Results Name Type Priority Associated Diagnoses Date /Time US Lower Extremity Venous Duplex Right Imaging Routine Acute deep vein thrombosis (DVT) of iliac vein of right lower extremity (H) 04/01/2024 2:09 PM CDT documented as of this encounter Visit Diagnoses Diagnosis Acute deep vein thrombosis (DVT) of iliac vein of right lower extremity (H)- Primary documented in this encounter Additional Health Concerns Assessment Noted Time PHQ-9 Depression Total Score: 24 024 11:07 AM CDT documented as of this encounter Care Teams Technology Education Teacher Relationship Specialty Start Date End Date Valentin Muñoz MD [address] [facility] [place] [address] PCP - General Internal Medicine 10/08/10 Valentin Muñoz MD [address] [facility] [place] [address] Assigned PCP 10/03/16 documented as of this encounter
--- OUTSIDE RECORDS SUMMARY | 2024-05-26 04:23 | XMS_ITS | Encounter Summary ---
Author Organization [place] Address [address] [place] [address]. [place] [address] Care Team Providers Care Supply Technician Name Role Phone Valentin Muñoz MD Primary Care Provider [phone] Valentin Muñoz MD Unavailable [phone] Reason for Visit * Reason Onset Date Comments sleep eval 02/28/2024 Encounter Details Date Type Department Care Team (Late st Contact Info) Description 02/28/2024 Telephone [facility] [place] [address] [address] Josephine Krishnan PA-C [address] [address] sleep eval Social History Tobacco [...] often do you attend chur ch or oriental orthodox services? More than 4 times per year 04/04/2023 Do you belong to any clubs o r organizations such as religious groups, unions, fraternal or athletic groups, or [...] Answer Date Recorded PHQ-2 Score 2 02/19/2024 [facility] of Occupat ional Health - Occupational [...] we [facility] you [facility] or would you prefer to receive a [...] 06/18/2024 12:00 PM CDT Virtual Visit [facility] [place] [address] [place] [address] Josephine Krishnan PA-C [address] [facility] [address] [place] [address] 07/22/2024 5:00 PM SPINNER CAP FRAME Appointment [facility] [address] [place] [phone] Roro Acevedo, CECI [address] [place] [address] 08/01/2024 2:30 PM SPINNER CAP FRAME Virtual Visit [facility] [address] [place] [phone] Roro Acevedo, CECI [address] [place] [address] documented as of this encounter Visit Diagnoses Not on filedocumented in this encounter Additional Health Concerns Assessment Noted Time PHQ-9 Depression Total Score: 24 01/23/ 024 11:07 AM CDT documented as of this encounter Care Teams Supply Technician Relationship Specialty Start Date End Date Valentin Muñoz MD [address] [place] [address] [place] [address] PCP - General Internal Medicine 10/08/10 Valentin Muñoz MD [address] [place] [address] [place] [address] Assigned PCP 10/03/16 documented as of this encounter
--- OUTSIDE RECORDS SUMMARY | 2024-05-26 04:23 | XMS_ITS | Encounter Summary ---
Author Organization [facility] Address [address] [place] [address]. [place] [address] Care Team Providers Care Systems Development Manager Name Role Phone Valentin Muñoz MD Primary Care Provider [phone] Valentin Muñoz MD Unavailable [phone] Reason for Referral * Care Coordination (Routine: Next available opening) - Pending Review Specialty Diagnoses / Procedures Referred By Contac t Referred To Contact Diagnoses Acute saddle pulmonary embolism with acute cor pulmonale (H) Daiana Tai MD [address] [address] Referral ID Status Reason Start Date Expiration Date V isits Requested Visits Authorized [id number] Pending Review 02/21/2024 02/20/2025 1 1 Question [...] with acute cor pulmonale (H) Emergency Dept [address] [place] [id number] Referral ID Status Reason Start Date Expiration Date Visits Re quested Visits Authorized [id number] 1 1 Encounter Details Date Type Department Care Team (Late st Contact Info) Description 02/19/2024 3:32 PM CDT - 02/23/2024 4:20 PM CDT Hospital Encounter [facility] [address] [phone] Trigger, Fco Maddox MD [facility] [address] [place] [address] [place] [id number] Joshua Whitehead MD [address] [id number] Hypertension (Primary Dx); Acute deep vein thrombosis [...] week 04/04/2023 How often do you attend [facility] or hinduism services? More than 4 times per year [...] Answer Date Recorded PHQ-2 Score 2 02/19/2024 [facility] - Occupational Stress Questionnaire Answer Date [...] Olmstead MD - 02/23/2024 4:22 PM CDT [facility] Hospitalist Discharge Summary Date of Admission: 02/19/2024 [...] diagnosis (US 02/14/2024) who was admitted to [facility] on 02/19/2024 for acute hypoxic [...] minutes discharging this patient. Twan Olmstead MD [place] [address] [place] [address] Physical Exam Vital Signs: Temp: 98.2 ??F [...] CT CHEST PULMONARY EMBOLISM W CONTRAST LOCATION: [facility] DATE: 02/19/2024 INDICATION: known DVT, SOB [...] PM CDT. IR Pulmonary Angiogram Bilateral Narrative [facility] LOCATION: [facility] [...] sterile drape. Prior to the procedure, the embossograph operator and credit assistant performed hand hygiene and wore hat, [...] exchanged over the wire for a 4 Chadian coaxial dilator. The inner 3 Chadian dilator and 0.018 inch wire were then exchanged for a 0.035 inch guidewire. The outer 4 Chadian dilator was then exchanged over the guidewire for a 6 Chadian vascular sheath. Utilizing preclose technique 2 Perclose suture devices were deployed at the right common femoral venous access site in standard fashion. The 6 Chadian sheath was removed over a 0.035 inch Amplatz wire. Serial dilatation was performed to 20 Chadian followed by a 24 Chadian dry seal sheath. A 6 Chadian Grollman-type catheter was advanced over a 0.035 [...] branch (greater than third order). A 24 Chadian FlowTriever catheter was advanced into the main right pulmonary artery and primary percutaneous transluminal mechanical thrombectomy (extirpation of matter) was performed with removal of a moderate amount of thrombus from the main right and right lower and right upper lobe pulmonary arteries. Pressure measurement was obtained. The catheter was retracted in the main pulmonary artery. A 5 Chadian KMP catheter, with the aid of a 0.035 inch angled Glidewire, was directed through the 24 Chadian catheter and directed into the left pulmonary artery. Pressure measurements were obtained. A pulmonary arteriogram was obtained. Next the Amplatz wire was removed from the left pulmonary artery and advanced through the KMP catheter into the left pulmonary artery. Following this the KMP catheter was exchanged for the dilator of the 24 Chadian catheter. This was advanced into the left pulmonary artery. The 24 Chadian FlowTriever catheter was advanced into the main left pulmonary artery and primary percutaneous transluminal mechanical thrombectomy (extirpation of matter) was performed with removal of a moderate amount of thrombus from the left mid and left lower pulmonary arteries. A 20 Chadian curved embolectomy catheter was advanced coaxially through the 24 Chadian catheter and additional mechanical thrombectomy performed with [...] popliteal vein. Over series of maneuvers, 6 Chadian vascular sheath was placed. Berenstein catheter was placed in the popliteal vein, femoral vein, common femoral vein, common iliac vein, and IVC where venograms were performed. Catheter was then used to advance a super stiff Amplatz wire to the ipsilateral subclavian vein. 13 Chadian sheath was then placed and 8 mm [...] MD Echocardiogram Complete Value LVEF 60% Narrative [id number] [facility] [id number]^ZAIRE^DAIANA [facility] Echocardiography Laboratory [facility] [place] [address] Name: YESIKA FONTAINE : 1985 Study Date: 02/20/2024 12:17 PM Age: 38 yrs Gender: Male Patient Location: [facility] Reason For Study: SOB Ordering Physician: DAIANA TAI Referring Physician: Valentin Muñoz Performed By: Earnest Bellamy BSA: 2.8 m2 Height: 72 in Weight: 380 lb HR: 94 BP: 120/78 mmHg Procedure Complete Portable Echo Adult. Optison ([facility] #[id number]) given intravenously. Interpretation Summary 1. The left [...] sent through Care Everywhere. * Pulmonary Embolism (Dominican) documented in this encounter Medications at Time [...] 02/22/2024 04/04/2024 documented as of this encounter Progress Notes [...] in follow up in a month. Thanks, [facility] Interventional Radiology [facility] ([phone]) (phone [phone]) * Bel Platt RN - 02/22/2024 6:17 PM CDT A&O, flat affect. VSS on RA. Tele discontinued, was SR/ST. Lungs clear. CMS intact. Groin and popliteal thrombectomy sites TEREZA, non tender, soft. IND, ambulating in hallway frequently today. PIV SL. Voiding adequately. No BM today, BS active, passing gas. Low NA diet, tolerating. Plan: Monitor overnight oxygen needs, CPAP vs BIPAP as needed. Pulmonology consult for tomorrow. Plan to discharge tomorrow if cleared. * JdCatherine Arias, - 02/22/2024 12:02 PM CDT [facility] Medicine Progress Note - Hospitalist Service Date of Admission: 02/19/2024 Assessment & Plan Yesika Fontaine is a 38 year old male with a history of hypertension, anxiety, and depression, who presents to the ED for R leg evaluation and shortness of breath. The patient was sent for an ultrasound by Dr. Gilmore at [facility] due to R leg pain, which [...] couple weeks ago, and was hospitalized at [place] over the weekend for mental health challenges. [...] Depression Insomnia Patient had recent admissions at [facility] and recently in the [facility] system. Psych consulted (02/21/24) - appreciated Recs are to continue [employer] WORK[employer] prozac, risperdol and neurontin dose Holding [employer] WORK[employer] ativan, for now, d/t oxygenation challenges (as above) 4. 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 Catherine Wilburn DO Hospitalist Service [facility] Securely message with Paulette (more info) Text page via [facility] Paging/Directory Interval History Slept on and off. [...] Daily Joshua Whitehead MD 40 mg at 02/22/24923 potassium chloride misa ER (KLOR-CON M20) CR tablet 40 mEq 40 mEq Oral Once Catherine Wilburn DO risperiDONE (risperDAL) tablet 2 mg 2 mg Oral At Bedtime Joshua Whitehead MD 2 mg at 02/21/242126 rivaroxaban ANTICOAGULANT (XARELTO) tablet 15 mg 15 mg Oral BID w/meals Daiana Tai MD 15 mg at02/22/24923 Followed by [START ON 03/11/2024] rivaroxaban ANTICOAGULANT (XARELTO) tablet 20 mg 20 mg Oral Daily with supper Daiana Tai MD sodium chloride (PF) 0.9% PF flush 3 mL 3 mL Intracatheter Q8H Joshua Whitehead MD 3 mL at 02/22/24 06 sodium chloride (PF) 0.9% PF flush 3 mL 3 mL Intracatheter Q8H Joshua Whitehead MD 3 mL at 02/22/24 0632 Labs and Imaging results below reviewed today. Recent Labs Lab 02/22/24 0624 02/21/24 1004 02/21/24 0734 02/20/24 0533 02/19/24 1555 WBC -- -- -- 8.5 10.6 HGB 12.2* 13.7 13.3 14.1 16.4 HCT -- -- -- 40.1 46.1 MCV -- -- -- 79 79 PLT -- -- -- 203 246 Recent Labs Lab 02/22/24 0624 02/21/24 0735 02/21/24 0734 02/21/24 0019 02/20/24 [...] the last 168 hours. Recent Labs Lab 02/22/24 0624 02/21/24 0735 02/21/24 0734 02/21/24 0019 02/20/24 [...] PT - 02/21/2024 5:35 PM CDT 02/21/24 1635 Appointment Info Signing Clinician's Name / Credentials (PT) Cristofer Tracy PT, DPT Compressor Operator Adjuster Compressor Operator Adjuster Present no Living Environment People in Home [...] for an ultrasound by Dr. Gilmore at [facility] due to R leg pain, which [...] couple weeks ago, and was hospitalized at [place] over the weekend for mental health challenges. General Observations Patient is outside of bedrest window following mechanical thrombectomy in [facility] on 02/19. Cognition Affect/Mental Status (Cognition) [...] Evaluation Time PT Eval, Low Complexity Minutes (00579) 5 Physical Therapy Goals PT Frequency Daily PT Predicted Duration/Target Date for Goal Attainment 02/26/24 PT Goals Bed Mobility;Transfers;Gait;Stairs PT: Bed Mobility Independent;Supine to/from sit;Goal Met;Completed PT: Transfers Independent;Sit to/from stand;Bed to/from chair PT: Gait Independent;Greater than 200 feet PT: Stairs Modified independent;3 stairs Interventions Interventions Quick Adds Gait Training;Therapeutic Activity Therapeutic Activity Therapeutic Activities: dynamic activities to improve functional performance Minutes (65705) 5 Symptoms Noted During/After Treatment Fatigue Treatment [...] RN updated. Gait Training Gait Training Minutes (80871) 10 Symptoms Noted During/After Treatment (Gait Training) [...] timed and untimed services) 20 * Sneha Kramer, LUIS [facility] - 02/21/2024 12:42 PM CDT Images from the original note were not included. Interventional Radiology Progress Note: Inpatient at [facility] Date: February 21, 2024 HPI: Yesika Fontaine [...] follow up today. Interval History: Doing ok. [place] dizzy after being up in a chair. [...] month for an US and clinic visit. [facility] will call the patient after discharge to make the appointment. Total time spent on the date of the encounter is 30 minutes, including time spent counseling the patient, performing a medically appropriate evaluation, reviewing prior medical history, ordering medications and tests, documenting clinical information in the medical record, and communication of results. Thanks [facility] Interventional Radiology [facility] ([phone]) (phone [phone]) * Herbert Chisholm PA-C - 02/20/2024 2:32 [...] for procedure Herbert Chisholm PA-C Interventional Radiology *[id number] Total Time: 55 minutes * Daiana Tai MD - 02/20/2024 10:17 AM CDT [facility] Medicine Progress Note - Hospitalist Service Date of Admission: 02/19/2024 Assessment & Plan Yesika Fontaine is a 38 year old male with a history of hypertension, anxiety, and depression, who presents to the ED for R leg evaluation and shortness of breath. The patient was sent for an ultrasound by Dr. Gilmore at [facility] due to R leg pain, which [...] Of note[facility], and was hospitalized at [place] over the weekend for mental health challenges. ## Acute Saddle Pulmonary embolus with RV strain ## Severe RLE DVT ct on IV heparin Appreciate IR review. Now s/p mechanical thrombectomy 02/18 A/W further IR plan with respect to RLE DVT for possible IVC filter +/- RLE thrombectomy Echo--p ## Major Depression Patient had recent admissions at [facility] and recently in the [facility] system. His is at bedside, and he [...] 2-4 Days Daiana Tai MD Hospitalist Service [facility] Securely message with [email or web address] (more info) Text page via [facility] Paging/Directory The above note was dictated using [...] the past 24 hrs: 8.5 \ 14.1 203 135 98 20.6 (H) / 125 [...] CT CHEST PULMONARY EMBOLISM W CONTRAST LOCATION: [facility] DATE: 02/19/2024 INDICATION: known DVT, SOB [...] PM CDT. IR Pulmonary Angiogram Bilateral Narrative [facility] LOCATION: [facility] [...] sterile drape. Prior to the procedure, the embossograph operator and credit assistant performed hand hygiene and wore hat, [...] exchanged over the wire for a 4 Chadian coaxial dilator. The inner 3 Chadian dilator and 0.018 inch wire were then exchanged for a 0.035 inch guidewire. The outer 4 Chadian dilator was then exchanged over the guidewire for a 6 Chadian vascular sheath. Utilizing preclose technique 2 Perclose suture devices were deployed at the right common femoral venous access site in standard fashion. The 6 Chadian sheath was removed over a 0.035 inch Amplatz wire. Serial dilatation was performed to 20 Chadian followed by a 24 Chadian dry seal sheath. A 6 Chadian Grollman-type catheter was advanced over a 0.035 [...] branch (greater than third order). A 24 Chadian FlowTriever catheter was advanced into the main right pulmonary artery and primary percutaneous transluminal mechanical thrombectomy (extirpation of matter) was performed with removal of a moderate amount of thrombus from the main right and right lower and right upper lobe pulmonary arteries. Pressure measurement was obtained. The catheter was retracted in the main pulmonary artery. A 5 Chadian KMP catheter, with the aid of a 0.035 inch angled Glidewire, was directed through the 24 Chadian catheter and directed into the left pulmonary artery. Pressure measurements were obtained. A pulmonary arteriogram was obtained. Next the Amplatz wire was removed from the left pulmonary artery and advanced through the KMP catheter into the left pulmonary artery. Following this the KMP catheter was exchanged for the dilator of the 24 Chadian catheter. This was advanced into the left pulmonary artery. The 24 Chadian FlowTriever catheter was advanced into the main left pulmonary artery and primary percutaneous transluminal mechanical thrombectomy (extirpation of matter) was performed with removal of a moderate amount of thrombus from the left mid and left lower pulmonary arteries. A 20 Chadian curved embolectomy catheter was advanced coaxially through the 24 Chadian catheter and additional mechanical thrombectomy performed with [...] Echocardiogram Complete Result Value LVEF 60% Narrative [id number]^ZAIRE^DAIANA [facility] Echocardiography Laboratory [address] [place] [address] Name: YESIKA FONTAINE : 1985 Study Date: 02/20/2024 12:17 PM Age: 38 yrs Gender: Male Patient Location: [facility] Reason For Study: SOB Ordering Physician: DAIANA TAI Referring Physician: Valentin Muñoz Performed By: Earnest Bellamy BSA: 2.8 m2 Height: 72 in Weight: 380 lb HR: 94 BP: 120/78 mmHg Procedure Complete Portable Echo Adult. Optison ([facility] #[id number]) given intravenously. Interpretation Summary 1. The left [...] his baseline. He and his question possible CARD PAINTER causes for his fairly abrupt mood change a few months ago. Is reasonable to order CARD PAINTER imaging to ensure he doesnot have a [...] is taking medications regularly. Hospital Follow-up Visit: Hospital/Group Home/IP Rehab Facility: [facility] Date of Admission: 02/02/2024 Date of Discharge: [...] Whitehead MD - 02/19/2024 7:22 PM CDT [facility] History and Physical - Hospitalist Service Date of Admission: 02/19/2024 Assessment & Plan Yesika Fontaine is a 38 year old male with a history of hypertension, anxiety, and depression, who presents to the ED for R leg evaluation and shortness of breath. The patient was sent for an ultrasound by Dr. Gilmore at [facility] due to R leg pain, which [...] Of note, he was seen in the [facility] unit a couple weeks ago, and was hospitalized at [place] over the weekend for mental health challenges. [...] undergo mechanical thrombectomy and then transferred to [facility] for close monitoring. Started on IV heparin NPO To IR suite for mechanical thrombectomy Transfer to [facility] post procedure Further IR re-consultation with respect to RLE DVT for possible IVC filter +/- RLE thrombectomy ## Major Depression Patient had recent admissions at [facility] and recently in the [facility] system. His is at bedside, and he [...] 2-4 Days Joshua Whitehead MD Hospitalist Service [facility] Securely message with [email or web address] (more info) Text page via [facility] Paging/Directory Chief Complaint Leg pain and sob [...] for an ultrasound by Dr. Gilmore at [facility] due to R leg pain, which [...] couple weeks ago, and was hospitalized at [place] over the weekend for mental health challenges. [...] CT CHEST PULMONARY EMBOLISM W CONTRAST LOCATION: [facility] DATE: 02/19/2024 INDICATION: known DVT, SOB [...] 8:05 AM CDTAssociated Order(s): PULMONARY IP CONSULT [facility] Pulmonary Consult Note Date of Service: 02/23/24 [...] 97.5 ??F (36.4 ??C) (Axillary) Resp 18 RhH148% Gen: NAD HEENT: anicteric, OP clear, Mallampati [...] Female Other Topics Concern Parent/sibling w/ CABG, AK or angioplasty before 65F 55M? No Social History Narrative Not on file Social Determinants of Health Financial Resource Strain: Low Risk (02/02/2024) Received from [employer] Financial Resource Strain Difficulty of Paying Living Expenses: 3 Difficulty of Paying Living Expenses: Not on file Food Insecurity: No Food Insecurity (02/02/2024) Received from [employer] Food Insecurity Worried About Running Out of Food in the Last Year: 1 Transportation Needs: No Transportation Needs (02/02/2024) Received from [employer] Transportation Needs Lack of Transportation (Medical): 1 Physical Activity: Sufficiently Active (04/04/2023) Exercise Vital Sign Days of Exercise per Week: 7 days Minutes of Exercise per Session: 70 min Stress: Stress Concern Present (04/04/2023) [employer] [employer] [facility] - Occupational Stress Questionnaire Feeling of Stress : Rather much Social Connections: Socially Integrated (02/02/2024) Received from [employer] Social Connections Frequency of Communication with Friends and Family: 0 Interpersonal Safety: Not on file Housing Stability: Low Risk (02/02/2024) Received from [employer] Housing Stability Unable to Pay for Housing in the Last Year: 1 Madan Dee MD Pulmonary and Critical Care Medicine [facility] * Elodia Connolly APRN [facility] - 02/21/2024 2:11 PM CDTAssociated Order(s): PSYCHIATRY IP CONSULT Images from the original note were not included. Initial Psychiatric Consult Consult date: February 21, 2024 Reason for Consult, requesting source: Severe depression Requesting source: Joshua Angelique Ventura Labs and imaging reviewed. Patient seen and evaluated by Elodia Connolly APRN [facility] HPI: Yesika Fontaine is a 38 year old male with a history of hypertension, anxiety, and depression, who presents to the ED for R leg evaluation and shortness of breath. The patient was sent for an ultrasound by Dr. Gilmore at [facility] due to R leg pain, which started on Monday (02/14/24). An ultrasound showed a blood clot, and he was sent to the ED because they were concerned for it traveling to his lungs due to his shortness of breath upon ambulation and a slight cough. Of note, he was seen in the [facility] unit a couple weeks ago, and was hospitalized at [facility] for mental health challenges. Patient reports he is struggling and it is rough being here. He presents with a flat affect butdid deny SI, HI, AVH. He has an outpatient psychiarist and therapist and is planning on starting anoutpatient mental health program March 05 in [facility]. Past Psychiatric History: Previous psychiatric admissions - [facility] ; seen at [facility] 01/30, 12/06 Previous commitment history - Denies. Current psychiatric provider - [facility] Current therapist - [facility] at [place]. Patient denies current [facility] case polisher. Previous medication trials include Fluoxetine, Gabapentin, Risperdal, [...] [place] [address] outside of [place], [place]. Currently on leave of absence from [...] Rate 111 BPM Atrial Rate 111 BPM PA Interval 150 ms QRS Duration 100 ms QT 360 ms QTc 489 ms P [place] 38 degrees R AXIS -21 degrees T [place] -7 degrees Interpretation ECG Sinus tachycardia T wave abnormality, consider anterior ischemia Abnormal ECG When compared with ECG of 17-JAN-2024 15:35, T wave inversion now evident in Anterior leads Confirmed by GENERATED REPORT, COMPUTER ([id number]), commercial production editor Jeimy Hale ([id number]) on 02/19/2024 6:00:09 PM D dimer quantitative [...] is flat Speech: monotonous Language: Fluent in mozambican Psychomotor Behavior: no evidence of tardive dyskinesia, [...] maintain remission of psychosis Recommend restarting his [employer] WORKER medication of 1,200mg at bedtime for insomnia Once medically stable, okay to discharge to his outpatient psychiatric programming/supports Elodia Connolly, PMHNP- Consult/Liaison Psychiatry [facility] * Rissa Donohue - 02/21/2024 1:31 PM [...] to help with your patient Rissa Charanjit [facility] Pharmacy Discharge Liaison [facility] documented in this encounter ED Notes * Tiffanie Guzman RN - 02/19/2024 7:43 PM CDT [facility] ED Nurse Handoff Report ED Chief complaint: [...] and uncomfortable. Given 4mg morphine IV, heparin [id number] units/hr. Plan for IR. Focused Assessment: Neuro: [...] injection 4 mg (4 mg Intravenous $Given 7/1/24 1923) heparin ANTICOAGULANT loading dose for HIGH INTENSITY TREATMENT* Give BEFORE starting heparin infusion (8,000 Units Intravenous $Given 02/19/24 1812) iopamidol (ISOVUE-370) solution 83 mL (83 mLs [...] - Current: [facility] Patient's Preferred language: Dominican Compressor Operator Adjuster Needed?: No Isolation: None Infection: Not Applicable [...] interventions performed were ED NURSE PHONE NUMBER: *[id number] * Jeimy Hale - 02/19/2024 4:54 PM [...] for an ultrasound by Dr. Muñoz at [facility] due to R leg pain, which [...] couple weeks ago, and was hospitalized at [facility] for mental health challenges. Independent Historian present [...] -- -- -- 94 11 93 % 02/19/240 (!) 88/57 -- -- 96 (!) 34 [...] at 1543 Sinus tachycardia Rate 111 bpm. PA interval 150 ms. QRS duration 100 ms. QT/QTc 360/489 ms. T wave inversion in the anterior leads Independent Interpretation Review of the CT pulmonary angiogram demonstrates extensive bilateral PE ED Course Medications Administered Medications heparin 25,000 units in 0.45% NaCl 250 mL ANTICOAGULANT infusion (1,800 Units/hr Intravenous Rate/Dose Verify 7/1/1924) morphine (PF) injection 4 mg (4 mg [...] the patient had an abnormal d-dimer. MIREILLE Fontaine is a 38 year old male [...] thrombectomy. Patient will be admitted to the [facility] following the procedure. Critical care time exclusive [...] goal(s). See goals on Care Plan in [facility] electronic health record for goal details. Goals [...] Kimble MD - 02/20/2024 6:43 PM CDT [facility] POST PROCEDURE NOTE Procedure: RLE Femoral venous [...] for sedation Herbert Chisholm PA-C Interventional Radiology [phone] (IR) *[phone] (ESPERAN[place] Office) * Plan of Care - [...] 2029 End time: 2107 Report provided to: [facility] RN Patient depart time and location: [address] [facility] Note: Patient entered Interventional Radiology Suite number [...] Source(s): Patient, Family member, Prescription bottles, and CareEverywhere/SureScriptsvia in-person Pertinent Information: None Changes made to [employer] medication list: Added: None Deleted: olanzaprine Changed: Gabapentin 800mg at bedtime to 1200mg at bedtime Allergies reviewed with patient and updates made in EHR: yes Medication History Completed By: Clemencia Laboy RPH 02/19/2024 7:44 PM [employer] Med List Medication Sig Last Dose amLODIPine [...] Description 06/18/2024 12:00 PM CDT Virtual Visit [facility] [address] [place] [address] Josephine Krishnan PA-C [address] [place] [id number] 07/22/2024 5:00 PM SUBJECT SCIENTIFIC RESEARCH Appointment [facility] [address] [place] [phone] Roro Acevedo PA-C [address] [place] [address] 08/01/2024 2:30 PM SUBJECT SCIENTIFIC RESEARCH Virtual Visit [facility] [address] [facility] [address] [place] [phone] MiteshRoro Davis PA-C [address] [place] [id number] Scheduled Referrals Name Type Priority Associated Diagnoses [...] Results * Potassium (02/22/2024 6:21 PM CDT) [facility] Potassium 3.8 3.4 - 5.3 mmol/L 02/22/2024 6:56 PM CDT LABORATORY Blood STRUCTURE OF FINGER OF LEFT HAND / Unknown Capillary / Unknown 02/22/2024 6:21 PM CDT 02/22/2024 6:40 PM CDT Catherine Wilburn DO LAB - BLOOD O RDERABLES LABORATORY [facility] [address] 1[address] floor, [address] [place] [address], [facility] [phone] * (ABNORMAL) Hemoglobin (02/22/2024 6:24 AM CDT) Hemoglobin 12.2(L) 13.3 - 17.7 g/dL 02/22/2024 7:04 AM T LABORATORY Blood STRUCTURE OF LEFT HAND / Unknown Venipuncture / Unknown 02/22/2024 6:24 AM CDT 02/22/2024 6:58 AM CDT Daiana Tai MD LAB - BLOOD ORDERABL ES LABORATORY [facility] [address] floor, [address] [place] [address], [facility] [phone] * (ABNORMAL) Basic metabolic panel (02/22/2024 6:24 AM CDT) Sodium 134(L) 135 - 145 mmol/L 02/22/2024 7:31 AM [facility] LABORATORY Potassium 3.3(L) 3.4 - 5.3 mmol/L 02/22/2024 7:31 AM [facility] LABORATORY Chloride 101 98 - 107 mmol/L 02/22/2024 7:31 AM [facility] LABORATORY Carbon Dioxide (CO2) 25 22 - 29 mmol/L 02/22/2024 7:31 AM [facility] LABORATORY Anion Gap 8 7 - 15 mmol/L 02/22/2024 7:31 AM [facility] LABORATORY Urea Nitrogen 12.7 6.0 - 20.0 mg/dL 02/22/2024 7:31 AM [facility] LABORATORY Creatinine 0.72 0.67 - 1.17 mg/dL 02/22/2024 7:31 AM [facility] LABORATORY GFR Estimate >90 >60 mL/min/1.7 3m2 02/22/2024 7:31 AM [facility] LABORATORY Comment:eGFR calculated usin 2020 CKD-EPI equation. Calcium 8.2(L) 8.6 - 10.0 mg/dL 02/22/2024 7:31 AM [facility] LABORATORY Glucose 99 70 - 99 mg/dL 02/22/2024 7:31 AM [facility] LABORATORY Blood STRUCTURE OF LEFT HAND / Unknown Venipuncture / Unknown 02/22/2024 6:24 AM CDT 02/22/2024 6:58 AM CDT Daiana Tai MD LAB - BLOOD ORDERABL ES LABORATORY [facility] [address] 1[address], [address] [place] [address], [facility] [phone] * (ABNORMAL) Blood gas venous (02/21/2024 3:39 [...] MD LAB - BLOOD ORDERABL ES LABORATORY [facility] [address], [address] [place] [address], [facility] [phone] * Hemoglobin (02/21/2024 10:04 AM CDT) Hemoglobin 13.7 13.3 - 17.7 g/dL 02/21/2024 10:27 AM CDT LABORATORY Blood STRUCTURE OF LEFT HAND / Unknown Venipuncture / Unknown 02/21/2024 10:04 AM CDT 02/21/2024 10:23 AM CDT Daiana Tai MD LAB - BLOOD ORDERABL ES LABORATORY [facility] [address], [address] [address], [facility] [phone] * (ABNORMAL) Glucose by meter (02/21/2024 7:35 AM CDT) GLUCOSE BY METER POCT 113(H) 70 - 99 mg/dL 02/21/2024 7:42 AM CDT LABORATORY POC Blood, Capillary BLOOD SPECIMEN / Unknown 02/21/2024 7:35 AM CDT 02/21/2024 7:42 AM CDT Joshua Whitehead MD LAB - BEAKER POCT LABORATORY POC [facility] [address], [address] [address], [facility] * Heparin Unfractionated Anti Xa Level (02/21/2024 [...] MD LAB - BLOOD ORDERAB LES LABORATORY [facility] [address], [address] [place] [address], [facility] [phone] * Potassium (02/21/2024 7:34 AM CDT) Potassium 3.6 3.4 - 5.3 mmol/L 02/21/2024 8:08 AM CDT LABORATORY Blood STRUCTURE OF LEFT HAND / Unknown Venipuncture / Unknown 02/21/2024 7:34 AM CDT 02/21/2024 7:41 AM CDT Joshua Whitehead MD LAB - BLOOD ORDERAB LES LABORATORY [facility] [address], [address], [place] [address], [facility] [phone] * (ABNORMAL) Basic metabolic panel (02/21/2024 7:34 [...] 02/21/2024 8:08 AM CDT LABORATORY Comment:eGFR calculated usin 2020 CKD-EPI equation. Calcium 8.1(L) 8.6 - 10.0 mg/dL 02/21/2024 8:08 AM CDT LABORATORY Glucose 108(H) 70 - 99 mg/dL 02/21/2024 8:08 AM CDT LABORATORY Blood STRUCTURE OF LEFT HAND / Unknown Venipuncture / Unknown 02/21/2024 7:34 AM CDT 02/21/2024 7:41 AM CDT Daiana Tai MD LAB - BLOOD ORDERABL ES [facility] [address], [address] [place] [address], [facility] [phone] * Hemoglobin (02/21/2024 7:34 AM CDT) Hemoglobin 13.3 13.3 - 17.7 g/dL 02/21/2024 7:44 AM CDT LABORATORY Blood STRUCTURE OF LEFT HAND / Unknown Venipuncture / Unknown 02/21/2024 7:34 AM CDT 02/21/2024 7:41 AM CDT Daiana Tai MD LAB - BLOOD ORDERABL ES [facility] [address], [address] [place] [address], [facility] [phone] * Heparin Unfractionated Anti Xa Level (02/21/2024 12:19 AM CDT) Pathologist [facility] Anti Xa Unfractionated Heparin 0.29 For Reference [...] Whitehead MD LAB - BLOOD ORDERAB LES [facility] [address], [address], [place] [address], [facility] [phone] * (ABNORMAL) Potassium (02/21/2024 12:19 AM CDT) [facility] Potassium 3.3(L) 3.4 - 5.3 mmol/L 02/21/2024 12:47 AM CDT LABORATORY Blood STRUCTURE OF LEFT HAND / Unknown Venipuncture / Unknown 02/21/2024 12:19 AM CDT 02/21/2024 12:24 AM CDT Daiana Tai MD LAB - BLOOD ORDERABL ES [facility] [address], [address] [place] [address], [place] [phone] * IR Lower Extremity Venogram Right (02/20/2024 [...] popliteal vein. Over series of maneuvers, 6 Chadian vascular sheath was placed. Berenstein catheter was placed in the popliteal vein, femoral vein, common femoral vein, common iliac vein, and IVC where venograms were performed. Catheter was then used to advance a super stiff Amplatz wire to the ipsilateral subclavian vein. 13 Chadian sheath was then placed and 8 mm [...] popliteal vein. Over series of maneuvers, 6 Chadian vascular sheath was placed. Steek SAenstein catheter was placed in the popliteal vein, femoral vein, common femoral vein, common iliac vein, and IVC where venograms were performed. Catheter was then used to advance a super stiff Amplatz wire to the ipsilateral subclavian vein. 13 Chadian sheath was then placed and 8 mm [...] days. OMERO KIMBLE MD Joshua Whitehead MD [facility] IR ORDERABLES * Activated clotting time celite, POCT (02/20/2024 5:11 PM CDT) [facility] Activated Clotting Time (Celite) POCT 140 74 - 150 seconds 02/20/2024 5:45 PM CDT LABORATORY POC Blood, venous BLOOD SPECIMEN / Unknown 02/20/2024 5:11 PM CDT 02/20/2024 5:45 PM CDT Joshua Whitehead MD [facility] POCT LABORATORY POC [facility] [address], [address] [place] [address], [facility] * Heparin Unfractionated Anti Xa Level (02/20/2024 1:14 PM CDT) [facility] Anti Xa Unfractionated Heparin <0.10 For Reference [...] LAB - BLOOD ORDERAB LES LABORATORY [facility] [address], [address] [place] [address], [facility] [phone] * ECHO COMPLETE WITH CONTRAST (02/20/2024 12:45 PM CDT) [facility] LVEF 60% CARDIOLOGY RESULTS Anatomical Region Laterality Modality Echocardiography 02/20/2024 12:1 7 PM CDT Narrative 02/20/2024 12:56 PM CDT [id number]^ZAIRE^DAIANA [facility] Echocardiography Laboratory [address] [place] [address] Name: YESIKA FONTAINE : 1985 Study Date: 02/20/2024 12:17 PM Age: 38 yrs Gender: Male Patient Location: [facility] Reason For Study: SOB Ordering Physician: DAIANA TAI Referring Physician: Valentin Muñoz Performed By: Earnest Bellamy BSA: 2.8 m2 Height: 72 in Weight: 380 lb HR: 94 BP: 120/78 mmHg Procedure Complete Portable Echo Adult. Kristal ([facility] #[id number]) given intravenously. Interpretation Summary 1. The left [...] Procedure Note Navin Giles MD - 02/20/2024 [id number] [facility] [id number]^ZAIRE^DAIANA [facility] Echocardiography Laboratory [address] [place] [address], [place] [address] Name: YESIKA FONTAINE : 1985 Study Date: 02/20/2024 12:17 PM Age: 38 yrs Gender: Male Patient Location: [facility] Reason For Study: SOB Ordering Physician: DAIANA TAI Referring Physician: Valentin Muñoz Performed By: Earnest Bellamy BSA: 2.8 m2 Height: 72 in Weight: 380 lb HR: 94 BP: 120/78 mmHg Procedure Complete Portable Echo Adult. Devorahson ([facility] #[id number]) givenintravenously. Interpretation Summary 1. The left ventricle [...] T, High Sensitivity (02/20/2024 5:33 AM CDT) [facility] Troponin T, High Sensitivity 41(H) <=22 ng/L [...] [address], [address] [place] [address], [facility] [phone] * Magnesium (02/20/2024 5:33 AM CDT) Magnesium 2.2 1.7 - 2.3 mg/dL 02/20/2024 10:21 AM CDT LABORATORY Blood STRUCTURE OF RIGHT HAND / Unknown Venipuncture / Unknown 02/20/2024 5:33 AM CDT 02/20/2024 5:39 AM CDT Daiana Tai MD LAB - BLOOD ORDERABL ES LABORATORY [facility] [address], [address] [place] [address], [facility] [phone] * Heparin Unfractionated Anti Xa Level (02/20/2024 [...] MD LAB - BLOOD ORDERAB LES LABORATORY [facility] [address], [address] [place] [address], [facility] [phone] * CBC with platelets (02/20/2024 5:33 AM [...] Whitehead MD LAB - BLOOD ORDERAB LES [facility] Organization Address City/State/ZIP Co de Phone Number LABORATORY [facility] [address], [address] [place] [address], [facility] [phone] * (ABNORMAL) Comprehensive metabolic panel (02/20/2024 5:33 AM CDT) Pathologist [facility] Sodium 135 135 - 145 mmol/L 02/20/2024 6:01 AM CDT LABORATORY Potassium 2.9(L) 3.4 - 5.3 mmol/L 02/20/2024 6:01 AM CDT LABORATORY Carbon Dioxide (CO2) 24 22 - 29 mmol/L 02/20/2024 6:01 AM [facility] LABORATORY Anion Gap 13 7 - 15 mmol/L 02/20/2024 6:01 AM [facility] LABORATORY Urea Nitrogen 20.6(H) 6.0 - 20.0 mg/dL 02/20/2024 6:01 AM [facility] LABORATORY Creatinine 0.84 0.67 - 1.17 mg/dL 02/20/2024 6:01 AM [facility] LABORATORY GFR Estimate >90 >60 mL/min/1. 73m2 02/20/2024 6:01 AM [facility] LABORATORY Comment:eGFR calculated usvt 2020 CKD-EPI equation. Calcium 8.7 8.6 - 10.0 mg/dL 02/20/2024 6:01 AM [facility] LABORATORY Chloride 98 98 - 107 mmol/L 02/20/2024 6:01 AM [facility] LABORATORY Glucose 125(H) 70 - 99 mg/dL 02/20/2024 6:01 AM [facility] LABORATORY Alkaline Phosphatase 53 40 - 150 U/L 02/20/2024 6:01 AM [facility] LABORATORY AST 14 0 - 45 U/L 02/20/2024 6:01 AM [facility] LABORATORY Comment:Reference intervals for this test were updated on 01/30/2023 to more accurately reflect our healthy population. There may be differences in the flagging of prior results with similar values performed with this method. Interpretation of those prior results can be made in the context of the updated reference intervals. ALT 20 0 - 70 U/L 02/20/2024 6:01 AM [facility] LABORATORY Comment:Reference intervals for this test were updated on 01/30/2023 to more accurately reflect our healthy population. There may be differences in the flagging of prior results with similar values performed with this method. Interpretation of those prior results can be made in the context of the updated reference intervals. Protein Total 6.4 6.4 - 8.3 g/dL 02/20/2024 6:01 AM [facility] LABORATORY Albumin 3.5 3.5 - 5.2 g/dL 02/20/2024 6:01 AM [facility] LABORATORY Bilirubin Total 1.0 <=1.2 mg/dL 02/20/2024 6:01 AM [facility] LABORATORY Blood STRUCTURE OF RIGHT HAND / Unknown Venipuncture / Unknown 02/20/2024 5:33 AM CDT 02/20/2024 5:39 AM CDT Joshua Whitehead MD LAB - BLOOD ORDERAB LES LABORATORY [facility] [address], [address] [place] [address], [facility] [phone] * (ABNORMAL) Glucose by meter (02/20/2024 1:34 AM CDT) GLUCOSE BY METER POCT 115(H) 70 - 99 mg/dL 02/20/2024 1:41 AM CDT LABORATORY POC Blood, Capillary BLOOD SPECIMEN / Unknown 02/20/2024 1:34 AM CDT 02/20/2024 1:41 AM CDT Joshua Whitehead MD LAB - BEAKER POCT LABORATORY POC [facility] [address], [address] [address], [facility] * Heparin Unfractionated Anti Xa Level [...] [address] floor, [address] [place] [address], [facility] [phone] * IR Pulmonary Angiogram Bilateral (02/19/2024 9:06 [...] EDOUARD MD Narrative 02/19/2024 9:38 PM CDT [facility] LOCATION: [facility] [...] sterile drape. Prior to the procedure, the embossograph operator and credit assistant performed hand hygiene and wore hat, [...] exchanged over the wire for a 4 Chadian coaxial dilator. The inner 3 Chadian dilator and 0.018 inch wire were then exchanged for a 0.035 inch guidewire. The outer 4 Chadian dilator was then exchanged over the guidewire for a 6 Chadian vascular sheath. ?? Utilizing preclose technique 2 Perclose suture devices were deployed at the right common femoral venous access site in standard fashion. The 6 Chadian sheath was removed over a 0.035 inch Amplatz wire. Serial dilatation was performed to 20 Chadian followed by a 24 Chadian dry seal sheath. A 6 Chadian Grollman-type catheter was advanced over a 0.035 [...] branch (greater than third order). A 24 Chadian FlowTriever catheter was advanced into the main right pulmonary artery and primary percutaneous transluminal mechanical thrombectomy (extirpation of matter) was performed with removal of a moderate amount of thrombus from the main right and right lower and right upper lobe pulmonary arteries. Pressure measurement was obtained. The catheter was retracted in the main pulmonary artery. A 5 Chadian KMP catheter, with the aid of a 0.035 inch angled Glidewire, was directed through the 24 Chadian catheter and directed into the left pulmonary artery. Pressure measurements were obtained. A pulmonary arteriogram was obtained. Next the Amplatz wire was removed from the left pulmonary artery and advanced through the KMP catheter into the left pulmonary artery. Following this the KMP catheter was exchanged for the dilator of the 24 Chadian catheter. This was advanced into the left pulmonary artery. The 24 Chadian FlowTriever catheter was advanced into the main left pulmonary artery and primary percutaneous transluminal mechanical thrombectomy (extirpation of matter) was performed with removal of a moderate amount of thrombus from the left mid and left lower pulmonary arteries. A 20 Chadian curved embolectomy catheter was advanced coaxially through the 24 Chadian catheter and additional mechanical thrombectomy performed with [...] Procedure Note Nas Edouard MD - 02/19/2024 [facility] LOCATION: [facility] [...] sterile drape. Prior to the procedure, the embossograph operator and credit assistant performed hand hygiene and wore hat, [...] exchanged over the wire for a 4 Chadian coaxial dilator. The inner 3 Chadian dilator and 0.018 inch wire were then exchanged for a 0.035 inch guidewire. The outer 4 Chadian dilator was then exchanged over the guidewire for a 6 Chadian vascular sheath. Utilizing preclose technique 2 Perclose suture devices were deployed at the right common femoral venous access site in standard fashion. The 6 Chadian sheath was removed over a 0.035 inch Amplatz wire. Serial dilatation was performed to 20 Chadian followed by a 24 Chadian dry seal sheath. A 6 Chadian Grollman-type catheter was advanced over a 0.035 [...] branch (greater than third order). A 24 Chadian FlowTriever catheter was advanced into the main right pulmonary artery and primary percutaneous transluminal mechanical thrombectomy (extirpation of matter) was performed with removal of a moderate amount of thrombus from the main right and right lower and right upper lobe pulmonary arteries. Pressure measurement was obtained. The catheter was retracted in the main pulmonary artery. A 5 Chadian KMP catheter, with the aid of a 0.035 inch angled Glidewire, was directed through the 24 Chadian catheter and directed into the left pulmonary artery. Pressure measurements were obtained. A pulmonary arteriogram was obtained. Next the Amplatz wire was removed from the left pulmonary artery and advanced through the KMP catheter into the left pulmonary artery. Following this the KMP catheter was exchanged for the dilator of the 24 Chadian catheter. This was advanced into the left pulmonary artery. The 24 Chadian FlowTriever catheter was advanced into the main left pulmonary artery and primary percutaneous transluminal mechanical thrombectomy (extirpation of matter) was performed with removal of a moderate amount of thrombus from the left mid and left lower pulmonary arteries. A 20 Chadian curved embolectomy catheter was advanced coaxially through the 24 Chadian catheter and additional mechanical thrombectomy performed with [...] 13 NAS EDOUARD MD Nas Edouard MD [facility] IR ORDERABLES * (ABNORMAL) CT Chest Pulmonary [...] CT CHEST PULMONARY EMBOLISM W CONTRAST LOCATION: [facility] DATE: 02/19/2024 INDICATION: known DVT, SOB [...] CT CHEST PULMONARY EMBOLISM W CONTRAST LOCATION: [facility] DATE: 02/19/2024 INDICATION: known DVT, SOB [...] PM CDT. Dr. Trujillo was contacted by ut on 02/19/2024 6:44 PM CDT. Fco Trujillo MD IM CT ORDERAB LES * CBC with platelets and differential (02/19/2024 3:55 PM CDT) [facility] WBC Count 10.6 4.0 - 11.0 10e3/uL [...] [address], [address] [place] [address], [facility] [phone] * (ABNORMAL) Nt probnp inpatient (BNP) (02/19/2024 [...] [address], [address] [place] [address], [facility] [phone] * (ABNORMAL) Blood gas venous (02/19/2024 3:55 PM CDT) pH Venous 7.48(H) 7.32 - 7.43 02/19/2024 4:01 PM CDT LABORATORY pCO2 Venous 33(L) 40 - 50 mm Hg 02/19/2024 4:01 PM T LABORATORY pO2 Venous 42 25 - 47 [...] MD LAB - BLOOD OR DERABLES LABORATORY [facility] [address], [address] [place] [address], [place] [phone] * (ABNORMAL) Troponin T, High Sensitivity (02/19/2024 3:55 PM CDT) [facility] Troponin T, High Sensitivity 48(H) <=22 ng/L [...] MD LAB - BLOOD OR DERABLES LABORATORY [facility] [address], [address] [place] [address], [place] [phone] * (ABNORMAL) Comprehensive metabolic panel (02/19/2024 3:55 PM CDT) Sodium 133(L) 135 - 145 mmol/L 02/19/2024 5:03 PM [facility] LABORATORY Potassium 3.4 3.4 - 5.3 mmol/L 02/19/2024 5:03 PM [facility] LABORATORY Carbon Dioxide (CO2) 21(L) 22 - 29 mmol/L 02/19/2024 5:03 PM [facility] LABORATORY Anion Gap 16(H) 7 - 15 mmol/L 02/19/2024 5:03 PM [facility] LABORATORY Urea Nitrogen 23.4(H) 6.0 - 20.0 mg/dL 02/19/2024 5:03 PM [facility] LABORATORY Creatinine 1.19(H) 0.67 - 1.17 mg/dL 02/19/2024 5:03 PM [facility] LABORATORY GFR Estimate 80 >60 mL/min/1. 73m2 02/19/2024 5:03 PM [facility] LABORATORY Comment:eGFR calculated usin 2020 CKD-EPI equation. Calcium 9.2 8.6 - 10.0 mg/dL 02/19/2024 5:03 PM [facility] LABORATORY Chloride 96(L) 98 - 107 mmol/L 02/19/2024 5:03 PM [facility] LABORATORY Glucose 133(H) 70 - 99 mg/dL 02/19/2024 5:03 PM [facility] LABORATORY Alkaline Phosphatase 59 40 - 150 U/L 02/19/2024 5:03 PM [facility] LABORATORY AST 20 0 - 45 U/L 02/19/2024 5:03 PM [facility] LABORATORY Comment: Specimen is hemolyzed which can [...] 0 - 70 U/L 02/19/2024 5:03 PM [facility] LABORATORY Comment:Reference intervals for this [...] - BLOOD OR DERABLES Performing Organization Address City/[facility]/[place] Co de Phone Number LABORATORY [facility] [address], [address], [place] [address], [facility] [phone] * (ABNORMAL) D dimer quantitative (02/19/2024 3:55 PM CDT) [facility] D-Dimer Quantitative 6.32(H) 0.00 - 0.50 ug/mL [...] - BLOOD OR DERABLES Performing Organization Address City/[facility]/ZIP Co de Phone Number LABORATORY [facility] [address] 1st floor, Room 20[address] [place] [address], [facility] [phone] * EKG 12-lead, tracing only (02/19/2024 3:43 PM CDT) Systolic Blood Pressure mmHg RADIOLOGY RESULTS Diastolic Blood Pressure mmHg RADIOLOGY RESULTS Ventricular Rate 111 BPM RAD IOLOGY RESULTS Atrial Rate 111 BPM RADIOLOG Y RESULTS PA Interval 150 ms RADIOLOG Y RESULTS QRS Duration 100 ms RADIOLO GY RESULTS QT 360 ms RADIOLOGY RESULTS QTc 489 ms RADIOLOGY RESULTS P [place] 38 degrees RADIOLOGY RESULTS R AXIS -21 degrees RADIOLOGY RESULTS T [place] -7 degrees RADIOLOGY RESULTS Interpretation ECG Sinus tachycardia T wave abnormality, consider anterior ischemia Abnormal ECG When compared with ECG of 17-JAN-2024 15:35, T wave inversion now evident in Anterior leads Confirmed by GENERATED REPORT, COMPUTER ([id number]), commercial production editor Jeimy Hale ([id number]) on 02/19/2024 6:00:09 PM RADIOLOGY RESULTS 02/19/2024 [...] Oral, AT BEDTIME, First dose on Sara 02/22/24 at 2200 $Given 02/22/2024 9:01 PM CDT 1,200 mg heparin (porcine) injection 4,000 Units 4,000 Units, Intravenous, ONCE PRN, other, when verbally ordered by prescriber during the procedure., Starting on Mon02/19/24 at 2052, For 1 dose, Prescriber will determine dose [...] 100 mL, Intravenous, ONCE, On Mon02/19/24 at 2009, For 1 dose, Supplied and administered by [...] during the procedure., Starting on Mon02/19/24 at 2001, For 1 dose, Dose to be divided [...] analgesic side effects. Hold while on IV FAMILY SERVICES WORKER or with regular IV opioid dosing. $Given [...] 40 mEq 40 mEq, Oral, ONCE, On Mon02/22/24 at 1000, For 1 dose, Potassium level [...] RN) 1001 ($Given - Provider: Tha Elise, RN) FLUoxetine (PROzac) capsule 40 mg 40 mg, Oral, DAILY, First dose on Mon02/20/24 at 0900 0908 ($Given - Provider: Bel Platt RN) 0924 ($Given - Provider: Bel Platt, RN) 1001 ($Given - Provider: Tha Elise, RN) gabapentin (NEURONTIN) tablet 1,200 mg 1,200 mg, [...] mEq (COMPLETED) 40 mEq, Oral, ONCE, On Mon02/22/24 at 1000, For 1 dose, Potassium level [...] RN) 1001 ($Given - Provider: Tha Elise, YOLIS)1800 (Canceled Entry - Provider: Orders Generic Provider [...] interventions if ordered, Starting on Mon02/19/24 at 215, May use concomitant with non-opioid analgesics. hydrOXYzine [...] documented as of this encounter Care Teams Systems Development Manager Relationship Specialty Start Date End Date Valentin Muñoz MD [address] [place] [address] PCP - General Internal Medicine 10/08/10 Valentin Muñoz MD [address] [facility] [facility] [place] [address] Assigned PCP 10/03/16 documented as of this encounter
--- OUTSIDE RECORDS SUMMARY | 2024-05-26 04:23 | XMS_ITS | Encounter Summary ---
Author Organization [place] Address [address] [place] [address] Care Team Providers Care Coordinator Of Library Services Name Role Phone Valentin Muñoz MD Primary Care Provider [phone] Valentin Muñoz MD Unavailable [phone] Encounter Details Date Type Department Care Team (Late st Contact Info) Description 02/21/2024 Telephone [facility] [address] [place] [phone] Rissa Donohue Social History Tobacco Use [...] any clubs o r organizations such as holiness groups, unions, fraternal or athletic groups, or [...] Date Recorded PHQ-2 Score 2 02/19/2024 [facility] of Occupat ional Health - Occupational [...] Description 06/18/2024 12:00 PM CDT Virtual Visit [facility] [place] [address] [place] [phone] Josephine Krishnan PA-C [address] [place] [id number] 07/22/2024 5:00 PM RAG WASHER Appointment [facility] [address] [place] [phone] Roro Acevedo, KELLYC [address] [place] [address] 08/01/2024 2:30 PM RAG WASHER Virtual Visit [facility] [address] [place] [address] 105 [place] [phone] Roro Acevedo, CECI [address] [place] [address] documented as of this encounter Visit Diagnoses Not on filedocumented in this encounter Additional Health Concerns Assessment Noted Time PHQ-9 Depression Total Score: 24 024 11:07 AM CDT documented as of this encounter Care Teams Coordinator Of Library Services Relationship Specialty Start Date End Date Valentin Muñoz MD [address] [place] [address] [place] [address] PCP - General Internal Medicine 10/08/10 Valentin Muñoz MD [address] [place] [address] [place] [address] Assigned PCP 10/03/16 documented as of this encounter
--- OUTSIDE RECORDS SUMMARY | 2024-05-26 04:23 | XMS_ITS | Encounter Summary ---
Author Organization [place] Address [address] [place] [address] Care Team Providers Care Bottle Sorter Name Role Phone Valentin Muñoz MD Primary Care Provider [phone] Valentin Muñoz MD Unavailable [phone] Encounter Details Date Type Department Care [...] How often do you attend chur or congregation services? More than 4 times per year 04/04/2023 Do you belong to any clubs o r organizations such as mandaeism groups, unions, fraternal or athletic groups, or [...] Answer Date Recorded PHQ-2 Score 2 02/19/2024 [facility] of Occupat ional Health - Occupational [...] Description 06/18/2024 12:00 PM CDT Virtual Visit [facility] [place] [address] [place] [address] Josephine Krishnan PA-C [address] [place] 080425 07/22/2024 5:00 PM BIOLOGY MANAGER Appointment [facility] [address] [place] [phone] Roro Acevedo, CECI [address] [place] [address] 08/01/2024 2:30 PM BIOLOGY MANAGER Virtual Visit [facility] [address] [place] [address] 105 [place] [phone] Roro Acevedo, CECI [address] [place] [address] 126334 documented as of this encounter Visit Diagnoses Not on filedocumented in this encounter Additional Health Concerns Assessment Noted Time PHQ-9 Depression Total Score: 24 024 11:07 AM CDT documented as of this encounter Care Teams Bottle Sorter Relationship Specialty Start Date End Date Valentin Muñoz MD [address] [place] [address] [place] [address] PCP - General Internal Medicine 10/08/10 Valentin Muñoz MD [address] [place] [address] [place] [address] Assigned PCP 10/03/16 documented as of this encounter
--- OUTSIDE RECORDS SUMMARY | 2024-05-26 04:23 | XMS_ITS | Encounter Summary ---
Author Organization [place] Address [address] [place] [address] Care Team Providers Care Gold Leaf Laborer Name Role Phone Valentin Muñoz MD Primary Care Provider [phone] Valentin Muñoz MD Unavailable [phone] Reason for Referral * Diagnostic Imaging CT Scan (Routine) - Closed Specialty Diagnoses / Procedures Referred By Contac t Referred To Contact Radiology. Diagnoses 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) Procedures CT Head w/o Contrast Valentin Muñoz MD [address] [place] [address] [address] [address] Scan [address] [place] [id number] Referral ID Status Reason Start Date Expiration Date Visits Re quested Visits Authorized [id number] Closed 02/19/2024 02/18/2025 1 1 Reason for Visit * Diagnostic Imaging CT Scan (Routine) - Closed Specialty Diagnoses / Procedures Referred By Contac t Referred To Contact Radiology. 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 [place] [address] Severe recurrent major depression without psychotic features [...] How often do you attend chur or moravian services? More than 4 times per year [...] Answer Date Recorded PHQ-2 Score 2 02/19/2024 [facility] - Occupational Stress Questionnaire Answer Date [...] place to sleep or slept in a nursing home (including now)? No 04/04/2023 Adolescent Education [...] Virtual Visit [facility] [address] [place] [address] Josephine Krishnan PA-C [address] [address]99[address] 07/22/2024 5:00 PM NUCLEAR POWER PLANT ENGINEER Appointment [facility] [address] [place] [phone] Roro Acevedo PA-C [address] [place], [place] [address] 08/01/2024 2:30 PM NUCLEAR POWER PLANT ENGINEER Virtual Visit [facility] [address] [phone] Roro Acevedo PA-C [address] [place] [address] 455784 documented as of this encounter Procedures Procedure [...] documented as of this encounter Care Teams Gold Leaf Laborer Relationship Specialty Start Date End Date Valentin Muñoz MD [address] [place] [address] [place] [address] PCP - General Internal Medicine 10/08/10 Valentin Muñoz MD [address] [place] [address] [place] [address] Assigned PCP 10/03/16 documented as of this encounter
--- OUTSIDE RECORDS SUMMARY | 2024-05-26 04:23 | XMS_ITS | Encounter Summary ---
Author Organization [place] Address [address] [place] [address]. [place] [address] Care Team Providers Care Interpretive Program Coordinator Name Role Phone Valentin Muñoz MD Primary Care Provider [phone] Valentin Muñoz MD Unavailable [phone] Reason for Referral * Consultation (Routine: Next available opening) - Pending Review Specialty Diagnoses / Procedures Referred By Jazzy arndt Referred To Contact Medical Oncology Diagnoses Acute deep vein thrombosis (DVT) of iliac vein of right lower extremity (H) Acute saddle pulmonary embolism with acute cor pulmonale (H) Valentin Muñoz MD [address] [facility] [address] Referral ID Status Reason Start Date Expiration Date V isits Requested Visits Authorized [id number] Pending Review 02/28/2024 02/27/2025 1 1 Question Answer My Clinical Question Is: Extensive right leg DVT with saddle PE. Question what if any additional evaluation is needed and duration of anticoagulation. If you have additional clinical questions which require a provider discussion, please call [phone]. Ask for the Chemo only medicine physician. Reason for Referral: Bleeding and Clotting Scheduling Instructions: Referrizer [place] will call you to coordinate your care as prescribed by the provider. If you don? t hear from a traffic workforce representative within 2 business days, please call Comments Please be aware that coverage of these services is subject to the terms and limitations of your health insurance plan. Call member services at your health plan with any benefit or coverage questions. Referrizer [place] will call you to coordinate your care as prescribed by the provider. If you don? t hear from a traffic workforce representative within 2 business days, please call Reason for Visit * Reason Comments Hospital F/U Encounter Details Date Type Department Care Team (Late st Contact Info) Description 02/28/2024 4:00 PM CDT Office Visit [facility] [address] [place] [address] Valenitn Muñoz MD [address] [place] [address] [place] [address] Acute deep vein thrombosis (DVT) of iliac [...] How often do you attend chur or denominational services? More than 4 times per year [...] PHQ-2 Score 2 02/19/2024 [facility] - Occupational Stress Questionnaire Answer Date Recorded [...] (XARELTO) 20 MG TABS tablet Adult Oncology/Hematology Bioinformatics Software Engineer Referral 2. Acute saddle pulmonary embolism with acute cor pulmonale (H) I26.02 rivaroxaban ANTICOAGULANT (XARELTO) 20 MG TABS tablet Adult Oncology/Hematology Bioinformatics Software Engineer Referral 3. Severe recurrent major depression without [...] new medications none HPI Hospital Follow-up Visit: Hospital/Alf/IP Rehab Facility: [facility] Date of Admission: 02/19/24 Date of Discharge: [...] to non-medication therapy: None Summary of hospitalization: [facility] discharge summary reviewed Diagnostic Tests/Treatments reviewed. Follow [...] Description 06/18/2024 12:00 PM CDT Virtual Visit [facility] [address] [phone] Josephine Krishnan PA-C [address] [place] [address] 07/22/2024 5:00 PM BOX ICER Appointment [facility] [address] [place] [phone] Roro Acevedo PA-C [address] [place] [address]23[address] 08/01/2024 2:30 PM BOX ICER [facility] [address] [place] [phone] Roro Acevedo PA-C [address] [place] [address] [id number] Scheduled Referrals Name Type Priority Associated Diagnoses Orde r Schedule Adult Oncology/Hematology Bioinformatics Software Engineer Referral Referral Routine: Next available opening Acute [...] documented as of this encounter Care Teams Interpretive Program Coordinator Relationship Specialty Start Date End Date Valentin Muñoz MD [address] [place] [address] [place] [address] PCP - General Internal Medicine 10/08/10 Valentin Muñoz MD [address] [place] [address] [place] [address] Assigned PCP 10/03/16 documented as of this encounter
--- OUTSIDE RECORDS SUMMARY | 2024-05-26 04:23 | XMS_ITS | Encounter Summary ---
Author Organization [place] Address [address] [place] [address]. [place] [address] Care Team Providers Care Bull Rider Name Role Phone Valentin Muñoz MD Primary Care Provider [phone] Valentin Muñoz MD Unavailable [phone] Reason for Visit * Reason Onset Date Comments Clinic Care Coordination - Follow-up 03/11/2024 Encounter Details Date Type Department Care Team (Late st Contact Info) Description 03/11/[address] [facility] [place] [address] [phone] Minerva Campbell RN Clinic Care Coordination - Follow-up Social History Tobacco Use Types Packs/Day Years [...] often do you attend chur ch or sabianist services? More than 4 times per year [...] encounter Miscellaneous Notes * Telephone Encounter - Minerva Campbell RN - 03/11/2024 12:00 PM CDT Patient returned phone call. Flat affect. Right groin site is bleeding, using gauze and tape. Having to change 3 x a day. He feels that it is bleeding more than it should. Patient was see in the [facility] at [facility] where was consulted consumer lender via telephone Asked patient to apply pressure and use pressure dressing, unsure if patient actually comprehended my directions. Patient would rather come in tomorrow and have someone look at it. Did suggest may need to use glue to close the site. Patient scheduled for 03/12 Makenna Campbell RN IR nurse clinician [phone] * Telephone Encounter - Minerva Campbell RN - 03/11/2024 11:[address] Branham, contact patient to check on status of puncture site. Left VM for patient to return phone call. Makenna Campbell RN IR nurse clinician [phone] documented in this encounter Plan of Treatment Upcoming Encounters Date Type Department Care Team (Late st Contact Info) Description 06/18/2024 12:00 PM CDT Virtual Visit [address] [phone] Josephine Krishnan PA-C [address] [address] 07/22/2024 5:00 PM PROFESSOR OF LANGUAGES Appointment [facility] [address] [place] [phone] Roro Acevedo PA-C [address] [place], [place] [address] 08/01/2024 2:30 PM PROFESSOR OF LANGUAGES Virtual Visit [facility] [address] [place] [phone] Roro Acevedo, CECI [address] [place] [address] documented as of this encounter Visit Diagnoses Not on filedocumented in this encounter Additional Health Concerns Assessment Noted Time PHQ-9 Depression Total Score: 24 024 11:07 AM CDT documented as of this encounter Care Teams Bull Rider Relationship Specialty Start Date End Date Valentin Muñoz MD [address] [place] [address] [place] [address] PCP - General Internal Medicine 10/08/10 Valentin Muñoz MD [address] [place] [address] [place] [address] Assigned PCP 10/03/16 documented as of this encounter
--- OUTSIDE RECORDS SUMMARY | 2024-05-26 04:23 | XMS_ITS | Encounter Summary ---
Author Organization [place] Address [address] [place] [address] Care Team Providers Care Transportation Manager Name Role Phone Valentin Muñoz MD Primary Care Provider [phone] Valentin Muñoz MD Unavailable [phone] Encounter Details Date Type Department Care [...] Date Recorded PHQ-2 Score 2 02/19/2024 [facility] - Occupational [...] Description 06/18/2024 12:00 PM CDT Virtual Visit [facility] [place] [address] [place] [address] Josephine Krishnan PA-C [address] [place] [id number] 07/22/2024 5:00 PM PERSONAL TRAINER Appointment [facility] [address] [place] [phone] Roro Acevedo, CECI [address] [place] [address] 08/01/2024 2:30 PM PERSONAL TRAINER Virtual Visit [facility] [address] [place] [address] 105 [place] [phone] Roro Acevedo, CECI [address] [place] [address] documented as of this encounter Visit Diagnoses Not on filedocumented in this encounter Additional Health Concerns Assessment Noted Time PHQ-9 Depression Total Score: 24 024 11:07 AM CDT documented as of this encounter Care Teams Transportation Manager Relationship Specialty Start Date End Date Valentin Muñoz MD [address] [place] [address] [place] [address] PCP - General Internal Medicine 10/08/10 Valentin Muñoz MD [address] [place] [address] [place] [address] Assigned PCP 10/03/16 documented as of this encounter
--- OUTSIDE RECORDS SUMMARY | 2024-05-26 04:24 | XMS_ITS ---
Author Organization [place] Address [address] [place] [address] Care Team Providers Care Production Material Handler Name Role Phone Valentin Muñoz MD Primary Care Provider [phone] Valentin Muñoz MD Unavailable [phone] Omeor Pham MD Unavailable Roro Acevedo PA-C Unavailable [phone] Transitional Care Management Status:Closed (Closed) Start date:02/26/2024 Enrollment date:02/27/2024 End date:03/11/2024 Close reason:Goals met Continued Care and Services Coordination
--- OUTSIDE RECORDS SUMMARY | 2024-05-26 04:24 | XMS_ITS | Encounter Summary ---
Author Organization [place] Address [address] [place] [address] Care Team Providers Care Machine Silk Screen Printer Name Role Phone Valentin Muñoz MD Primary Care Provider [phone] Valentin Muñoz MD Unavailable [phone] Josephine Espinal PA-C Unavailable [phone] Omero Pham MD Unavailable [phone] Roro Acevedo PA-C Unavailable [phone] Encounter Details Date Type Department Care Team [...] Answer Date Recorded PHQ-2 Score 0 01/28/2022 [facility] [place] [place] of Occupat ional Health - Occupational Stress [...] slept in a residential (including now)? No 01/28/2022 Sex and Gender [...] Description 06/18/2024 12:00 PM CDT Virtual Visit [facility] [place] [address] [place] [phone] Josephine Krishnan PA-C [address] [facility] [address] [place] [id number] 07/22/2024 5:00 PM FREELANCE COPYWRITER Appointment [facility] [address] [place] [phone] Roro Acevedo PA-C [address] [place] [address] 966214 08/01/2024 2:30 PM FREELANCE COPYWRITER Virtual Visit [facility] [address] [place] [phone] Roro Acevedo PA-C [address] [place] [address] 295044 documented as of this encounter Visit Diagnoses Not on filedocumented in this encounter Additional Health Concerns Infection Onset Date Last Indicated Resolved Time Influenza 07/26/2022 07/26/2022 08/02/2022 11:3 9 PM FREELANCE COPYWRITER documented as of this encounter Care Teams Machine Silk Screen Printer Relationship Specialty Start Date End Date Valentin Muñoz MD [address] [facility] [address] [place] [address] PCP - General Internal Medicine 10/08/10 Valentin Muñoz MD [address] [facility] [place] [phone] Assigned PCP 10/03/16 Josephine Krishnan PA-C [address] [facility] 103 [place], [place] 931[address] Assigned Sleep Provider 01/29/22 Omero Pham MD [facility] [address] [facility] [address] [place] [address] Assigned Heart and Vascular Provider 04/12/24 Roro Acveedo PA-C [address] [place], [place] 739[address] Assigned Cancer Care Provider 04/12/24 documented as of this encounter
--- OUTSIDE RECORDS SUMMARY | 2024-05-26 04:24 | XMS_ITS | Encounter Summary ---
Author Organization [facility] Address [address] [place] [address] Care Team Providers Care Director Field Services Name Role Phone Valentin Muñoz MD Primary Care Provider [phone] Valentin Muñoz MD Unavailable [phone] Josephine Espinal PA-C Unavailable [phone] Omero Pham MD Unavailable [phone] Roro Acevedo PA-C Unavailable [phone] Reason for Visit * Reason Comments Medication Refill Encounter Details Date Type Department Care Team (Late st Contact Info) Description 10/[facility] [address] [place] [address] Valentin Louis PA-C [address] [place], [place] [address] Medication Refill Social History Tobacco Use Types [...] CDT Virtual Visit [facility] [address] [place] [address] Josephine Krishnan PA-C [address] [place] [id number] 07/22/2024 5:00 PM STAFF PHARMACIST Appointment [facility] [address] [place] [phone] Roro Acevedo PA-C [address] [place] [id number] 08/01/2024 2:30 PM STAFF PHARMACIST Virtual Visit [facility] [address] [place] [address] 105 [place] [phone] Roro Acevedo, CECI [address] [place] [id number] documented as of this encounter Visit Diagnoses Diagnosis Essential hypertension Unspecified essential hypertension documented in this encounter Additional Health Concerns Infection Onset Date Last Indicated Resolved Time Influenza 07/26/2022 07/26/2022 08/02/2022 11:3 9 PM STAFF PHARMACIST documented as of this encounter Care Teams Director Field Services Relationship Specialty Start Date End Date Valentin Muñoz MD [address] [place] [address] [place] [address] PCP - General Internal Medicine 10/08/10 Valentin Muñoz MD [address] [place] [address] [place] [address] Assigned PCP 10/03/16 Josephine Krishnan PA-C [address] [facility] 103 [place], [place] [address] Assigned Sleep Provider 01/29/22 Omero Pham MD [facility] [address] [facility] [address] [place], [place] [address] Assigned Heart and Vascular Provider 04/12/24 Roro Acevedo PA-C [address] [place], [place] [address] Assigned Cancer Care Provider 04/12/24 documented as of this encounter
--- OUTSIDE RECORDS SUMMARY | 2024-05-26 04:24 | XMS_ITS | Encounter Summary ---
Author Organization [facility] Address [address] [place] [address] Care Team Providers Care Conference Translator Name Role Phone Valentin Muñoz MD Primary Care Provider [phone] Valentin Muñoz MD Unavailable [phone] Josephine Espinal PA-C Unavailable [phone] Omero Pham MD Unavailable [phone] Roro Acevedo PA-C Unavailable [phone] Encounter Details Date Type Department Care Team (Late st Contact Info) Description 05/17/2022 MyC Medical Advice [facility] [address] [address] Yeimi Conway, MOUNTER Social History Tobacco Use Types Packs/Day Years [...] Answer Date Recorded PHQ-2 Score 0 05/03/2022 [facility] - [...] slept in a intermediate (including now)? No 01/28/2022 Sex and Gender Information Value Date Recorded Sex Assigned at Not on file Gender Identity Not on file Sexual Orientation Not on file documented as of this encounter Plan of Treatment Upcoming Encounters Date Type Department Care Team (Late st Contact Info) Description 06/18/2024 12:00 PM CDT Virtual Visit [facility] [place] [address] [place] [address] Josephine Krishnan PA-C [address] [facility] [address] [place] [id number] 07/22/2024 5:00 PM CORNICE MAKER Appointment [facility] [address] [place] [phone] Roro Acevedo PA-C [address] [place] [address] [id number] 08/01/2024 2:30 PM CORNICE MAKER Virtual Visit [facility] [address] [place] [phone] Roro Acevedo PA-C [address] [place] [address] [id number] documented as of this encounter Visit Diagnoses Not on filedocumented in this encounter Additional Health Concerns Infection Onset Date Last Indicated Resolved Time Influenza 07/26/2022 07/26/2022 08/02/2022 11:3 9 PM CORNICE MAKER documented as of this encounter Care Teams Conference Translator Relationship Specialty Start Date End Date Valentin Muñoz MD [address] [facility] [place] [address] PCP - General Internal Medicine 10/08/10 Valentin Muñoz MD [address] [place] [place] [address] Assigned PCP 10/03/16 Josephine Krishnan PA-C [address] [facility] 103 [place], [place] [address] Assigned Sleep Provider 01/29/22 Omero Pham MD [facility] [address] [facility] 108 [place], [place] [phone] Assigned Heart and Vascular Provider 04/12/24 Roro Acevedo PA-C [address] [place], [place] [address] Assigned Cancer Care Provider 04/12/24 documented as of this encounter
--- OUTSIDE RECORDS SUMMARY | 2024-05-26 04:24 | XMS_ITS | Clinical Summary ---
Author Organization [facility] Address [place], [place] [address] Care Team Providers Care Explosive Ordnance Manager Name Role Phone Valentin Muñoz MD Primary Care Provider [phone] Allergies Active Allergy Reactions Criticality Noted Date Comments Cephalexin Rash Low 02/26/2009 Medications Medication Sig Dispensed Refills Start Date End Date Status lisinopril-hydrochlor othiazide, 20-25 mg, (PRINZIDE, ZESTORETIC) 20-25 mg per tablet Take 2 Tablets by mouth once daily. 02/27/2023 Active amLODIPine (NORVASC) 10 mg tablet Take 10 mg by mouth once daily. 02/23/2023 Active traZODone (DESYREL) 100 mg tabletIndications:Mod erate episode of recurrent major depressive disorder (HC) Take 1 Tablet (100 mg) by mouth at bedtime if needed, may repeat once for Sleep. 60 Tablet 02/06/2024 Active potassium chloride (KLOR-CON M10) 10 mEq extended-release tablet (part/cryst)Indicatio ns:Hypokalemia Take 1 Tablet (10 mEq) by mouth once daily with a meal. 30 Tablet 02/06/2024 Active hydrOXYzine pamoate (VISTARIL) 50 mg capsuleIndications:An xiety Take 1 Capsule (50 mg) by mouth 3 times daily if needed for Anxiety. 90 Capsule 02/06/2024 Active LORazepam (ATIVAN) 1 mg tabletIndications:Anx iety Take 1 Tablet (1 mg) by mouth at bedtime if needed for Anxiety. 30 Tablet 02/06/2024 Active rivaroxaban (Xarelto) 15 mg tab tabletIndications:izzy p vein thrombosis prevention,deep venous thrombosis Take 15 mg by mouth two times daily. 02/22/2024 Active FLUoxetine (PROZAC) 40 mg capsuleIndications:Cu rrent severe episode of major depressive disorder without psychotic features, unspecified whether recurrent (HC) Take 1 Capsule (40 mg) by mouth once daily. Take along with 20mg capsule 30 Capsule 03/06/2024 Active risperiDONE (RISPERDAL) 1 mg tabletIndications:Cur rent severe episode of major depressive disorder without psychotic features, unspecified whether recurrent (HC) Take 1 Tablet (1 mg) by mouth at bedtime. 30 Tablet 03/08/2024 Active gabapentin (NEURONTIN) 600 mg tabletIndications:Anx iety disorder, unspecified type Take 2 Tablets (1,200 mg) by mouth at bedtime. 60 Tablet 03/08/2024 Active FLUoxetine (PROZAC) 20 mg capsuleIndications:Cu rrent severe episode of major depressive disorder without psychotic features, unspecified whether recurrent (HC) Take 1 Capsule (20 mg) by mouth once daily. 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 02/19/2024 Anxiety disorder 02/19/2024 Hypokalemia 02/03/2024 Sinus tachycardia 02/03/2024 Moderate episode of recurrent major depressive d isorder 02/02/2024 HTN (hypertension) 02/02/2024 Morbid obesity 02/02/2024 FAITH (obstructive sleep apnea) 02/02/2024 Encounters Date Type Department Care Team Description 04/04/2024 Refill [facility] [address] [place] [address] Gege Hollingsworth NP Refill Request (Gabapentin) 03/26/2024 8:53 AM CDT - 03/26/2024 11:59 PM CDT Hospital Encounter [facility] [address] [place] [address] Gege Hollingsworth NP Current severe episode of major depressive disorder without psychotic features, unspecified whether recurrent (HC); Anxiety disorder, unspecified type 03/25/2024 8:53 AM CDT - 03/25/2024 11:59 PM CDT Hospital Encounter [facility] [address] [facility] [place] [address] Gege Hollingsworth, COAT HANGER SHAPER MACHINE OPERATOR Current severe episode of major depressive disorder without psychotic features, unspecified whether recurrent (HC); Anxiety disorder, unspecified type 03/25/2024 Travel 03/22/2024 8:57 AM CDT - 03/22/2024 11:59 PM CDT Hospital Encounter [facility] [address] [place] [address] Gege Hollingsworth, COAT HANGER SHAPER MACHINE OPERATOR Moderate episode of recurrent major depressive disorder (HC) (Primary Dx); Current severe episode of major depressive disorder without psychotic features, unspecified whether recurrent (HC); Anxiety disorder, unspecified type 03/22/2024 Travel 03/21/2024 8:50 AM CDT - 03/21/2024 11:59 PM CDT Hospital Encounter [facility] [address] [place] [address] Gege Hollingsworth, COAT HANGER SHAPER MACHINE OPERATOR Sleep apnea, unspecified type (Primary Dx); Current severe episode of major depressive disorder without psychotic features, unspecified whether recurrent (HC); Anxiety disorder, unspecified type 03/21/2024 Telephone [facility] [address] [place] [address] Mirian Barber, [facility] Discharge Planning 03/20/2024 8:53 AM CDT - 03/20/2024 11:59 PM CDT Hospital Encounter [facility] [address] [place] [address] Gege Hollingsworth, COAT HANGER SHAPER MACHINE OPERATOR Current severe episode of major depressive disorder without psychotic features, unspecified whether recurrent (HC); Anxiety disorder, unspecified type 03/20/2024 Travel 03/19/2024 8:54 AM CDT - 03/19/2024 11:59 PM CDT Hospital Encounter [facility] [address] [place] [address] Gege Hollingsworth, COAT HANGER SHAPER MACHINE OPERATOR Current severe episode of major depressive disorder without psychotic features, unspecified whether recurrent (HC); Anxiety disorder, unspecified type 03/18/2024 8:54 AM CDT - 03/18/2024 11:59 PM CDT Hospital Encounter [facility] [address] [facility] [place] [address] Gege Hollingsworth NP Current severe episode of major depressive disorder without psychotic features, unspecified whether recurrent (HC); Anxiety disorder, unspecified type 03/18/2024 Travel 03/15/2024 8:49 AM CDT - 03/15/2024 11:59 PM CDT Hospital Encounter [facility] [address] [place] [address] Gege Hollingsworth NP Current severe episode of major depressive disorder without psychotic features, unspecified whether recurrent (HC); Anxiety disorder, unspecified type 03/15/2024 Travel 03/14/2024 3:00 PM CDT Office Visit [facility] [address] [facility] [place] [address] Sonali Cagle NP Drainage From Incision (Noting bright red blood from insertion site of angiogram done on 02/19/24. Was glued at [place] on 03/12/24. Noted bleeding from site again this morning. Incision located right right groin.) 03/14/2024 8:50 AM CDT - 03/14/2024 11:59 PM CDT Hospital Encounter [facility] [address] [place] [address] Gege Hollingsworth NP Current severe episode of major depressive disorder without psychotic features, unspecified whether recurrent (HC); Anxiety disorder, unspecified type 03/13/2024 8:52 AM CDT - 03/13/2024 11:59 PM CDT Hospital Encounter [facility] [address] [facility] [place] [address] Gege Hollingsworth NP Current severe episode of major depressive disorder without psychotic features, unspecified whether recurrent (HC); Anxiety disorder, unspecified type 03/13/2024 Travel 03/12/2024 8:49 AM CDT - 03/12/2024 11:59 PM CDT Hospital Encounter [facility] [address] [facility] [place] [address] Gege Hollingsworth COAT HANGER SHAPER MACHINE OPERATOR Current severe episode of major depressive disorder without psychotic features, unspecified whether recurrent (HC); Anxiety disorder, unspecified type 03/11/2024 8:54 AM CDT - 03/11/2024 11:59 PM CDT Hospital Encounter [facility] [address] [place] [address] Gege Hollingsworth, COAT HANGER SHAPER MACHINE OPERATOR Current severe episode of major depressive disorder without psychotic features, unspecified whether recurrent (HC); Anxiety disorder, unspecified type 03/11/2024 Telephone [facility] [address] [place] [address] Mayra Estrada [facility] attendance 03/11/2024 Travel 03/08/2024 8:54 AM CDT - 03/08/2024 11:59 PM CDT Hospital Encounter [facility] [address] [place] [address] Gege Hollingsworth COAT HANGER SHAPER MACHINE OPERATOR Current severe episode of major depressive disorder without psychotic features, unspecified whether recurrent (HC); Anxiety disorder, unspecified type 03/07/2024 1:32 PM CDT - 03/07/2024 5:39 PM CDT Emergency [facility] [address] [place] [address] Rose Lopez DO Dizziness (Primary Dx) Discharge Disposition: Home Self Care 03/07/2024 1:00 PM CDT Office Visit [facility] [address] [facility] [place] [address] Lightheaded (Complaints of lightheadedness/diz ziness for the last 10 minutes or so. Started during outpatient group therapy at the hospital. Denies any chest pain or shortness of breath. ) 03/07/2024 8:52 AM CDT - 03/07/2024 1:31 PM CDT Hospital Encounter [facility] [address] [place] [address] Gege Hollingsworth NP Current severe episode of major depressive disorder without psychotic features, unspecified whether recurrent (HC); Anxiety disorder, unspecified type 03/07/2024 Travel 03/06/2024 8:54 AM CDT - 03/06/2024 11:59 PM CDT Hospital Encounter [facility] [address] [place] [address] Gege Hollingsworth NP Current severe episode of major depressive disorder without psychotic features, unspecified whether recurrent (HC); Anxiety disorder, unspecified type 03/05/2024 9:00 AM CDT - 03/05/2024 11:59 PM CDT Hospital Encounter [facility] [address] [place] [address] Vickie Buitrago NP Current severe episode of major depressive disorder without psychotic features, unspecified whether recurrent (HC); Anxiety disorder, unspecified type 03/05/2024 Travel 02/27/2024 9:30 AM CDT Office Visit [facility] [address] [place] [address] Rony Gonzáles, [facility] Visit 02/27/2024 Travel from Last 3 Months Social History Tobacco Use Types Packs/Day Years Used Date Smoking Tobacco: Never Smokeless Tobacco: Never Tobacco Cessation:Counseling Given: Not Answered Alcohol Use Standard Drinks/Week Comments Not Currently 0 (1 standard drink = 0.6 oz pur e alcohol) PHQ-2 Answer Date Recorded PHQ-2 TOTAL SCORE 1 03/26/2024 Social Connections Answer Date Recorded Frequency of [...] Sign Reading Time Taken Comments Blood Pressure 137/85 03/14/2024 3:19 PM CDT Pulse 85 03/14/2024 3:19 PM CDT Temperature 36.2 ??C (97.2 ??F) 03/14/2024 3:19 PM CD T Respiratory Rate 18 03/14/2024 3:19 PM CDT Oxygen Saturation 97% 03/14/2024 3:19 PM CDT Inhaled Oxygen Concentration - - Weight 168.4 kg (371 lb 4.8 oz) 03/14/2024 3:19 PM CDT Height 182.9 cm (6') 03/07/2024 1:41 PM CDT Body Mass Index 50.36 03/07/2024 1:41 PM CDT Plan of Treatment Health Maintenance Due Date Last Done Comments Tdap 1995 HIV for age 15-65 1999 Hepatitis C screening for age 18-79 2002 Tetanus booster 2004 BMI (ht and wt on same day) for age 18+ 03/31/2024 03/31/2023 COVID-19 vaccine series ( season) 2024 08/16/2021, 12/11/2020, 11/20/2020 Influenza for age 9-49 04/21/2024 Depression screening for age 12+ 03/26/2025 03/26/2024, 03/21/2024, 03/20/2024, Additional history exists Lipids for age 35-44 [...] DIFF STAT 03/07/2024 1:4 8 PM CDT LIPID PANEL Early AM 02/03/2024 8:49 AM CDT from Last 3 Months or Most Recently Relevant to Health Maintenance Results * XR CHEST 1 VIEW PORTABLE (03/07/2024 4:20 PM CDT) Anatomical Region Laterality Modality HEART, THORAX, CHEST Digital Rad iography 03/07/2024 4:47 PM CDT Narrative 03/07/2024 4:47 PM CDT For Patients: ??As a result of the Century Cures Act, [...] (HS) ONE TIME (03/07/2024 4:00 PM CDT) TROPONIN T HS 9 6-15 ng/L ng/L 03/07/2024 4:[address] [facility] Blood BLOOD SPECIMEN / Unknown Venipuncture / Unknown 03/07/2024 4:00 PM CDT 03/07/2024 4:02 PM CDT Rose Lopez DO CHEMISTRY [facility] [address] [place] [address] * EKG 12 LEAD (03/07/2024 1:53 PM CDT) Interpretation Sinus rhythm with frequent Premature ventricular [...] NOW QTc 467 ms BEYOND NOW P Austin 22 degrees BEYOND NOW R Austin -9 degrees BEYOND NOW T Austin 20 degrees BEYOND NOW 03/07/2024 1:53 PM CDT 03/08/2024 12:05 PM CDT Rose Lopez DO EKG ORD BEYOND NOW [place], [place] * TROPONIN T (HS) ACUTE W/2HR REFLEX (03/07/2024 1:48 PM CDT) TROPONIN T HS 11 6-15 ng/L ng/L 03/07/2024 2:[address] [facility] Blood BLOOD SPECIMEN / Unknown Venipuncture / Unknown 03/07/2024 1:48 PM CDT 03/07/2024 1:[address] [facility] - 03/07/2024 2:40 PM CDT hs-cTnT [...] low risk in emergency department patient population. Rsoe Ania Lopez DO CHEMISTRY Performing Organization Address [facility] Co de Phone Number [facility] [address] [place] [phone] * TSH (03/07/2024 1:48 PM CDT) [facility] TSH 1.04 0.27 - 4.20 uIU/mL 03/07/2024 2:[address] [facility] Blood BLOOD SPECIMEN / Unknown Venipuncture / Unknown 03/07/2024 1:48 PM CDT 03/07/2024 1:53 PM CDT [facility] - 03/07/2024 2:20 PM CDT In Adults, TSH values between 5.00 and 10.00 uIU/ml do not necessarily indicate the presence of Hypothyroidism. Correlation with clinical findings such as presence of goiter and/or Thyroperoxidase (TPO) Antibody may be helpful. For more information please refer to EVELYN 2004; 291: 228-238. Rose Ania Lopez DO CHEMISTRY Performing Organization Address [facility] Co de Phone Number [facility] [address] [place] [phone] * CBC W PLT NO DIFF (03/07/2024 1:48 PM CDT) WHITE BLOOD COUNT 5.7 4.5 - 11.0 thou/cu mm 03/07/2024 2:[address] [facility] RED BLOOD COUNT 4.99 4.30 - 5.90 mil/cu mm 03/07/2024 2:[address] [facility] HEMOGLOBIN 13.8 13.5 - 17.5 g/dL 03/07/2024 2:[address] [facility] HEMATOCRIT 40.4 37.0 - 53.0 % 03/07/2024 2:[address] [facility] MCV 81 80 - 100 fL 03/07/2024 2:[address] [facility] MCH 27.7 26.0 - 34.0 pg 03/07/2024 2:[address] [facility] MCHC 34.2 32.0 - 36.0 g/dL 03/07/2024 2:[address] [facility] RDW 13.9 11.5 - 15.5 % 03/07/2024 2:[address] [facility] PLATELET COUNT 383 140 - 440 thou/cu mm 03/07/2024 2:[address] [facility] MPV 9.1 6.5 - 11.0 fL 03/07/2024 2:[address] [facility] Blood BLOOD SPECIMEN / Unknown Venipuncture / Unknown 03/07/2024 1:48 PM CDT 03/07/2024 1:53 PM CDT Rose Lopez DO HEMATOLOGY [facility] [address] [place] [phone] * (ABNORMAL) PRO-BNP (03/07/2024 1:48 PM CDT) PRO-BNP 131(H) <125 pg/mL 03/07/2024 2:[address] [facility] Blood BLOOD SPECIMEN / Unknown Venipuncture / Unknown 03/07/2024 1:48 PM CDT 03/07/2024 1:53 PM CDT [facility] - 03/07/2024 2:41 PM CDT The [...] Lopez DO SEND OUTS Performing Organization Address [facility] Co de Phone Number [facility] [address] [place] [address] * MAGNESIUM (03/07/2024 1:48 PM CDT) [facility] MAGNESIUM 2.1 1.6 - 2.6 mg/dL 03/07/2024 3:[address] [facility] Blood BLOOD SPECIMEN / Unknown Venipuncture / Unknown 03/07/2024 1:48 PM CDT 03/07/2024 1:53 PM CDT Rose Lopez DO CHEMISTRY Performing Organization Address [facility] Co de Phone Number [facility] [address] [place], [place] [phone] * (ABNORMAL) BASIC METABOLIC PANEL (03/07/2024 1:48 PM CDT) [facility] SODIUM 137 136 - 145 mmol/L 03/07/2024 2:[address] [facility] POTASSIUM 3.4(L) 3.5 - 5.1 mmol/L 03/07/2024 2:[address] [facility] CHLORIDE 99 98 - 107 mmol/L 03/07/2024 2:20 PM [facility] CO2,TOTAL 28 22 - 29 mmol/L 03/07/2024 2:[address] [facility] ANION GAP 10 5 - 18 03/07/2024 2:20 PM [facility] GLUCOSE 174(H) 70 - 99 mg/dL 03/07/2024 2:20 PM [facility] CALCIUM 9.5 8.6 - 10.0 mg/dL 03/07/2024 2:20 PM [facility] BUN 14 6 - 20 mg/dL 03/07/2024 2:20 PM [facility] CREATININE 0.90 0.70 - 1.20 mg/dL 03/07/2024 2:20 PM [facility] BUN/CREAT RATIO 16 10 - 20 2:20 PM [facility] eGFR >90 >90 mL/min/1.7 3m2 03/07/2024 2:20 PM [facility] Comment:As of 2021, eG FR [...] 1:53 PM CDT Rose Lopez DO CHEMISTRY [facility] [address] [place], [place] [phone] * (ABNORMAL) Lipid Panel (02/03/2024 8:49 AM CDT) CHOLESTEROL,TOTAL 108 100 - 199 mg/dL 02/03/2024 9:50 AM CDT [facility] Comment: Cholesterol, Total Reference Ranges Desirable <200 mg/dL Borderline 200-239 mg/dL High >=240 mg/dL TRIGLYCERIDES 108 <150 mg/dL 02/03/2024 9:50 AM CDT [facility] HDL CHOLESTEROL 40(L) >40 mg/dL 9:50 AM CDT [facility] NON-HDL CHOLESTEROL 68 <145 mg/dl 02/03/2024 9:50 AM CDT [facility] CHOL/HDL RATIO 2.70 <4.50 02/03/2024 9:50 AM CDT [facility] LDL CHOLESTEROL 46 <=130 mg/dL 02/03/2024 9:50 AM CDT [facility] VLDL CHOLESTEROL 22 <=30 mg/dL 02/03/2024 9:50 AM CDT [facility] PROVIDER ORDERED STATUS RANDOM 02/03/2024 9:50 AM T [facility] Blood BLOOD SPECIMEN / Unknown Venipuncture / Unknown 02/03/2024 8:49 AM CDT 02/03/2024 9:11 AM CDT Didier Bailey COAT HANGER SHAPER MACHINE OPERATOR CHEMISTRY [facility] [address] [place] [phone], from Last 3 Months or Most Recently Relevant to Health Maintenance Advance Directives * Full Code (Latest Code Status on File) Date Activated Date Inactivated Comments 02/02/2024 11:35 AM 02/06/2024 7:40 PM Question Answer Comments Code Status Discussion: Reviewed Preferences Care Teams Explosive Ordnance Manager Relationship Specialty Start Date End Date Valentin Muñoz MD [address] [place] [address] PCP - General Internal Medicine 02/27/24
--- OUTSIDE RECORDS SUMMARY | 2024-05-26 04:24 | XMS_ITS | Encounter Summary ---
Author Organization [facility] Address [address] [place] [address] Care Team Providers Care Market Sales Manager Name Role Phone Valentin Muñoz MD Primary Care Provider [phone] Valentin Muñoz MD Unavailable [phone] Josephine Espinal PA-C Unavailable [phone] Omero Pham MD Unavailable + [phone] Roro Acevedo PA-C Unavailable [phone] Encounter Details Date Type Department Care Team (Late st Contact Info) Description 01/03/2022 [facility] [address] [address] [place], [place] Social History [...] Description 06/18/2024 12:00 PM CDT Virtual Visit [facility] [place] [address] [place] [phone] Josephine Krishnan PA-C [address] [place] [id number] 07/22/2024 5:00 PM RACK PUSHER Appointment [facility] [address] [place] [phone] Roro Acevedo PA-C [address] [place] [phone] 08/01/2024 2:30 PM RACK PUSHER Virtual Visit [facility] [address] [place] [phone] Roro Acevedo PA-C [address] [place] [address] [phone] documented as of this encounter Visit Diagnoses Not on filedocumented in this encounter Additional Health Concerns Infection Onset Date Last Indicated Resolved Time Influenza 07/26/2022 07/26/2022 08/02/2022 11:3 9 PM RACK PUSHER documented as of this encounter Care Teams Market Sales Manager Relationship Specialty Start Date End Date Valentin Muñoz MD [address] [place] [address] [place] [address] PCP - General Internal Medicine 10/08/10 Valentin Muñ[place] [address] [place] [address] [place] [address] Assigned PCP 10/03/16 Josephine Krishnan PA-C [address] [place] [id number] Assigned Sleep Provider 01/29/22 Omero Pham MD [facility] [address] [place] [address] Assigned Heart and Vascular Provider 04/12/24 Roro Acevedo PA-C [address] [place] [address] Assigned Cancer Care Provider 04/12/24 documented as of this encounter
--- OUTSIDE RECORDS SUMMARY | 2024-05-26 04:24 | XMS_ITS | Encounter Summary ---
Author Organization [facility] Address [address] [place] [address]. [place] [address] Care Team Providers Care Manufacturing Quality Technician Name Role Phone Valentin Muñoz MD Primary Care Provider [phone] Valentin Muñoz MD Unavailable [phone] Josephine Espinal PA-C Unavailable [phone] Omero Pham MD Unavailable + [phone] Roro AcevedoC Unavailable [phone] Encounter Details Date Type Department Care Team (Late st Contact Info) Description 11/05/2021 [facility] [address] [place] [phone] Dilia Lei Social History Tobacco Use Types [...] PM CDT Virtual Visit [facility] [place] [address] [place] [phone] Josephine Krishnan PA-C [address] [place] [phone] 07/22/2024 5:00 PM PRODUCTION LEAD Appointment [facility] [address] [place] [phone] Roro Acevedo PA-C [address] [place] [address] [phone] 08/01/2024 2:30 PM PRODUCTION LEAD Virtual Visit [facility] [address] [place] [address] [address] [place] [phone] Roro Acevedo PA-C [address] [place] [address] [phone] documented as of this encounter Visit Diagnoses Not on filedocumented in this encounter Additional Health Concerns Infection Onset Date Last Indicated Resolved Time Influenza 07/26/2022 07/26/2022 08/02/2022 11:3 9 PM PRODUCTION LEAD documented as of this encounter Care Teams Manufacturing Quality Technician Relationship Specialty Start Date End Date Valentin Muñoz MD [address] [place] [address] [place] [address] PCP - General Internal Medicine 10/08/10 Valentin Muñoz MD [address] [place] [address] [place] [address] Assigned PCP 10/03/16 Josephine Krishnan PA-C [address] [place] [id number] Assigned Sleep Provider 01/29/22 Omero Pham MD [facility] [address] [phone] Assigned Heart and Vascular Provider 04/12/24 Roro Acevedo PA-C [address] [place], [place] [address] Assigned Cancer Care Provider 04/12/24 documented as of this encounter
--- OUTSIDE RECORDS SUMMARY | 2024-05-26 04:24 | XMS_ITS | Encounter Summary ---
Author Organization [facility] Address [address] [place] [address] Care Team Providers Care Professor Of Philosophy Name Role Phone Valentin Muñoz MD Primary Care Provider [phone] Valentin Muñoz MD Unavailable [phone] Josephine Espinal PA-C Unavailable [phone] Omero Pham MD Unavailable + [phone] Roro Acevedo PA-C Unavailable + [phone] Encounter Details Date Type Department Care Team (Late st Contact Info) Description 01/24/2022 [facility] Medical Advice [address] [address] Felipa Ol[place]stead, [place] Social History [...] often do you attend chur ch or scientology services? More than 4 times per year 01/28/2022 Do you belong to any clubs o r organizations such as buddhist groups, unions, fraternal or athletic groups, or [...] Answer Date Recorded PHQ-2 Score 0 01/28/2022 [facility] - Occupational [...] Description 06/18/2024 12:00 PM CDT Virtual Visit [facility] Sleep [address] [phone] Josephine rKishnan PA-C [address] [facility] [address] [place] [phone] 07/22/2024 5:00 PM HAND STAPLER Appointment [facility] Imaging [address] [place] [phone] Roro Acevedo, CECI [address] [place] [address]22294 08/01/2024 2:30 PM HAND STAPLER Virtual Visit [facility] [address] [place] [address] 105 [place] [phone] Roro Acevedo PA-C [address] [place] [address]264 documented as of this encounter Visit Diagnoses Not on filedocumented in this encounter Additional Health Concerns Infection Onset Date Last Indicated Resolved Time Influenza 07/26/2022 07/26/2022 08/02/2022 11:3 9 PM HAND STAPLER documented as of this encounter Care Teams Professor Of Philosophy Relationship Specialty Start Date End Date Valentin Muñoz MD [address] [facility] [place] [address] PCP - General Internal Medicine 10/08/10 Valentin Muñoz MD [address] [facility] [place] [address] Assigned PCP 10/03/16 Josephine Krishnan PA-C [address] [facility] [address] [place], [place] [address] Assigned Sleep Provider 01/29/22 Omero Pham MD [facility] [address] [facility] 108 [place], [place] [address] Assigned Heart and Vascular Provider 04/12/24 Roro Acevedo PA-C [address] [place], [place] [address] Assigned Cancer Care Provider 04/12/24 documented as of this encounter
--- OUTSIDE RECORDS SUMMARY | 2024-05-26 04:24 | XMS_ITS | Encounter Summary ---
Author Organization [facility] Address [address] [place] [address] Care Team Providers Care Extruder Operator Vertical Name Role Phone Valentin Muñoz MD Primary Care Provider [phone] Valentin Muñoz MD Unavailable [phone] Reason for Referral * Diagnostic Imaging CT Scan (Routine) - Closed Specialty Diagnoses / Procedures Referred By Contac t Referred To Contact Radiology. Diagnoses 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) Procedures CT Head w/o Contrast Valentin Muñoz MD [address] [place] [address] Scan [address] [facility] [place] [address] Referral ID Status Reason Start Date Expiration Date Visits Re quested Visits Authorized [id number] Closed 02/19/2024 02/18/2025 1 1 * Diagnostic Imaging Ultrasound (Routine) - Pending Review Specialty Diagnoses / Procedures Referred By Contac t Referred To Contact Radiology. Diagnoses Right calf pain Procedures US Lower Extremity Venous Duplex Right Valentin Muñoz MD [address] [place] [address] [place] [address] Referral ID Status Reason Start Date Expiration Date V isits Requested Visits Authorized [id number] Pending Review 02/19/2024 02/18/2025 1 1 Reason for Visit * Reason Comments Hospital F/U Musculoskeletal Problem Right Calf pain x 5 days Encounter Details Date Type Department Care Team (Late st Contact Info) Description 02/19/2024 7:00 AM CDT Office Visit [facility] [place] [address] [place] [address] Valentin Muñoz MD [address] [facility] [place] [address] Severe recurrent major depression without psychotic features [...] How often do you attend chur or spiritism services? More than 4 times per year [...] 2 02/19/2024 [facility] - Occupational Stress Questionnaire Answer Date [...] his baseline. He and his question possible TEST ENGINEERING INTERN causes for his fairly abrupt mood change a few months ago. Is reasonable to order TEST ENGINEERING INTERN imaging to ensure he doesnot have a [...] is taking medications regularly. Hospital Follow-up Visit: Hospital/Senior Care/IP Rehab Facility: [facility] Date of Admission: 02/02/2024 Date [...] Virtual Visit [facility] [place] [address] [place] [phone] Josephine Krishnan PA-C [address] [place] [id number] 07/22/2024 5:00 PM TRACTOR MECHANIC HELPER Appointment [facility] Imaging [address] [place] [phone] Roro Acevedo PA-C [address] [place] [address] 08/01/2024 2:30 PM TRACTOR MECHANIC HELPER Virtual Visit [facility] [address] [facility] [address] [place] [phone] Roro Acevedo PA-C [address] [place] [address] [phone] documented as of this encounter Results * [...] documented as of this encounter Care Teams Extruder Operator Vertical Relationship Specialty Start Date End Date Valentin Muñoz MD [facility] [place] [address] PCP - General Internal Medicine 10/08/10 Valentin Muñoz MD [address] [place] [address] [place] [address] Assigned PCP 10/03/16 documented as of this encounter
--- OUTSIDE RECORDS SUMMARY | 2024-05-26 04:24 | XMS_ITS | Encounter Summary ---
Author Organization [facility] Address [address] [place] [address] Care Team Providers Care Instrument And Electrical Technician Name Role Phone Valentin Muñoz MD Primary Care Provider [phone] Valentin Muñoz MD Unavailable [phone] Encounter Details Date Type Department Care [...] week 04/04/2023 How often do you attend [facility] or jainism services? More than 4 times per year 04/04/2023 Do you belong to any clubs o r organizations such as shinto groups, unions, fraternal or athletic groups, or [...] Date Recorded PHQ-2 Score 2 02/19/2024 [facility] - Occupational Stress Questionnaire Answer Date [...] CDT Virtual Visit [facility] [place] [address] [place] [phone] Josephine Krishnan PA-C [address] [place] [address] 07/22/2024 5:00 PM ARMATURE REWINDER Appointment [facility] Imaging [address] [place] [phone] Roro Acevedo, CECI [address] [place] [address] 08/01/2024 2:30 PM ARMATURE REWINDER Virtual Visit [facility] [address] [place] [address] 105 [place] [phone] Roro Acevedo PA-C [address] [place] [address] [phone] documented as of this encounter Visit Diagnoses Not on filedocumented in this encounter Additional Health Concerns Assessment Noted Time PHQ-9 Depression Total Score: 24 024 11:07 AM CDT documented as of this encounter Care Teams Instrument And Electrical Technician Relationship Specialty Start Date End Date Valentin Muñoz MD [address] [place] [address] [place] [address] PCP - General Internal Medicine 10/08/10 Valentin Muñoz MD [address] [place] [address] [place] [address] Assigned PCP 10/03/16 documented as of this encounter
== END 2024-05-12 08:50 | disposition home or self-care (01) ==
LOC: AMB 05-26 04:19
PROVIDERS: Visit Provider Family Medicine
DX: S21.112A Laceration without foreign body of left front wall of thorax without penetration into thoracic cavity, initial encounter (principal); X78.1XXA Intentional self-harm by knife, initial encounter; Y92.002 Bathroom of unspecified non-institutional (private) residence as the place of occurrence of the external cause
CPT/HCPCS: A0425; A0427

== ENCOUNTER 2024-10-14 03:54 | Emergency (ER) | payer OTHER, SELFPAY ==
--- OUTSIDE RECORDS SUMMARY | 2024-10-14 03:57 | XMS_ITS | Encounter Summary ---
Author Organization [place] Address [address] [place] [address] Care Team Providers Care Dredge Master Name Role Phone Valentin Muñoz MD Primary Care Provider [phone] Valentin Muñoz MD Unavailable [phone] DecesaOmero west MD Unavailable [phone] Roro Acevedo PA-C Unavailable + [phone] Josephine Krishnan PA-C Unavailable [phone] Reason for Referral * Consultation (Routine: Next available opening) - Pending Review Specialty Diagnoses / Procedures Referred By Jazzy arndt Referred To Contact Otolaryngology Diagnoses Tongue lesion Amy Gutiérrez MD [address] [facility] [place] [address] Phone: tel: fax: Referral ID Status Reason Start Date Expiration Date V isits Requested Visits Authorized [id number] Pending Review 09/25/2024 09/25/2025 1 1 Question Answer Reason for Referral: Head and Neck Reason for Referral: Mass Scheduling Instructions: [facility] will call you to coordinate your care as prescribed by the provider. If you don t hear from a traffic workforce representative within 2 business days, please call [phone]. Additional Information: Tongue lesion, photo in media tab Comments Please be aware that coverage of these services is subject to the terms and limitations of your health insurance plan. Call member services at your health plan with any benefit or coverage questions. [employer] will call you to coordinate your care as prescribed by the provider. If you don t hear from a traffic workforce representative within 2 business days, please call [phone]. ANALYTICS SPECIALIST Reason for Visit * Reason Comments Fatigue Encounter Details Date Type Department Care Team (Late st Contact Info) Description 09/25/2024 1:40 PM WEB ANALYTICS SPECIALIST Office Visit [address] [place] [address] Rebeca Holt MD [address] [place] [address] Other fatigue (Primary Dx); Tongue lesion Social History Tobacco Use Types Packs/Day Years [...] How often do you attend chur or sikh services? More than 4 times per year [...] PHQ-2 Answer Date Recorded PHQ-2 Score 4 09/25/2024 [facility] - Occupational Stress Questionnaire Answer Date Recorded [...] School Help Needed Not on file 06/02 Interpersonal Safety Answer Date Record ed Do you feel physically and e motionally safe where you currently live? Yes 09/25/2024 Within the past 12 months, h ave you been hit, slapped, kicked or otherwise physically hurt by someone? No 09/25/2024 Within the past 12 months, h ave you been humiliated or emotionally abused in other ways by your partner or ex-partner? No 09/25/2024 Sex and Gender Information Value Date Recorded Sex Assigned at Not on file Legal Sex Male 5:04 AM WEB ANALYTICS SPECIALIST Gender Identity Not on file Sexual Orientation Not on file documented as of this encounter Last Filed Vital Signs Vital Sign Reading Time Taken Comments Blood Pressure 124/83 09/25/2024 12:55 PM WEB ANALYTICS SPECIALIST Pulse 110 09/25/2024 12:55 PM WEB ANALYTICS SPECIALIST Temperature 36.7 C (98.1 F) 09/25/2024 12:55 PM WEB ANALYTICS SPECIALIST Respiratory Rate - - Oxygen Saturation 96% 09/25/2024 12:55 PM WEB ANALYTICS SPECIALIST Inhaled Oxygen Concentration - - Weight 189.1 kg (417 lb) 09/25/2024 12:55 PM WEB ANALYTICS SPECIALIST Height 182.9 cm (6') 09/25/2024 12:55 PM WEB ANALYTICS SPECIALIST Body Mass Index 56.56 09/25/2024 12:55 PM WEB ANALYTICS SPECIALIST documented in this encounter Patient Instructions * Patient Instructions* Rebeca Holt MD - 09/25/2024 1:40 PM WEB ANALYTICS SPECIALIST Please follow up with your PCP or another provider in clinic in 1-2 weeks if your symptoms are not improving. We will be in touch regarding your labs results. So nice to meet you! Rebeca Holt MD ANALYTICS SPECIALIST documented in this encounter Progress Notes * Rebeca Holt MD - 09/25/2024 1:40 PM CST Images from the original note were not included. Assessment & Plan Pk is a 39yo M presenting for evaluation of fatigue. Other fatigue Broad ddx. Acute gastrointestinal illness in setting of new diarrhea most likely as well as untreated sleep apnea. Will obtain CMP, CBC to rule out anemia, liver disease, acute electrolyte abnormalities. Most recent TSH in 04/2024 wnl. No fevers, night sweats, unintentional weight loss that would beconcerning for underlying malignancy. Encouraged adequate hydration and recommend he return for follow up if he is not feeling better within 1-2 weeks. - CBC with platelets and differential; Future - Comprehensive metabolic panel (BMP + Alb, Alk Phos, ALT, AST, Total. Bili, TP); Future Tongue lesion His dentist noted tongue lesion about 2-3 months ago. Has not noticed it changing or becoming painful. - Adult ENT Head Grower Referral; Future The longitudinal plan of care for the diagnosis(es)/condition(s) as documented were addressed during this visit. Due to the added complexity in care, I will continue to support Ant in the subsequent management and with ongoing continuity of care. BMI Estimated body mass index is 56.56 kg/m?? as calculated from the following: Height as of this encounter: 1.829 m (6'). Weight as of this encounter: 189.1 kg (417 lb). Depression Screening Follow Up 09/25/2024 12:28 PM PHQ PHQ-9 Total Score 14 Q9: Thoughts of better off /self-harm past 2 weeks More than half the days F/U: Thoughts of suicide or self-harm Yes F/U: Self harm-plan No F/U: Self-harm action No F/U: Safety concerns No Patient-reported Follow Up Actions Taken Referred patient back to mental health provider Discussed the following ways the patient can remain in a safe environment: be around others Subjective Ant is a 39 year old, presenting for the following health issues: Fatigue 09/25/2024 12:52 PM Additional Questions Roomed by Shyann Accompanied by self 09/25/2024 12:52 PM Patient Reported Additional Medications Patient reports taking the following new medications none Fatigue Associated symptoms include fatigue. History of Present Illness Reason for visit: Want blood draw Symptom onset: 3-7 days ago Symptoms include: Really tired like body is fighting something Symptom intensity: Severe Symptom progression: Worsening Had these symptoms before: No What makes it worse: No What makes it better: No He is taking medications regularly. Started to feel fatigued about 1 week ago. Even though he gets sleep, he still feels tired. Gettingabout 6-7 hours of sleep per night. Does have sleep apnea, does not use his CPAP regularly. Denies fevers, chills, cough, difficulty breathing, sore throat, chest pain, abd pain, nausea, vomiting. Also developed diarrhea about 1 week ago. No blood in his stools, does have some urgency when needing to have a BM but does make it to the bathroom on time. No dysuria, hematuria. Denies unintentional weight loss, night sweats. No sick contacts of which he is aware. No medication changes in the past month. Does endorse active suicidal ideation. Does not have a plan. Has a support system in his and daughter. Follows regularly with his psychiatry team at [facility]. Objective BP 124/83 Pulse 110 Temp 98.1 ??F (36.7 ??C) (Oral) Ht 1.829 m (6') Wt (!) 189.1 kg (417 lb) SpO2 96% BMI 56.56 kg/m?? Body mass index is 56.56 kg/m??. Physical Exam GENERAL: alert and no distress EYES: Eyes grossly normal to inspection, PERRL and conjunctivae and sclerae normal HENT: ear canals and TM's normal, nose and mouth without ulcers or lesions NECK: no adenopathy, no asymmetry, masses, or scars RESP: lungs clear to auscultation - no rales, rhonchi or wheezes CV: regular rate and rhythm, normal S1 S2, no S3 or S4, no murmur, click or rub, no peripheral edema ABDOMEN: soft, nontender MS: no gross musculoskeletal defects noted, no edema Signed Electronically by: Rebeca Holt MD Cosigned by Amy Gutiérrez MD at 09/27/2024 1:39 PM WEB ANALYTICS SPECIALIST ANALYTICS SPECIALIST Associated attestation - Amy Gutiérrez MD - 09/27/2024 1:39 PM WEB ANALYTICS SPECIALIST Physician Attestation I saw and evaluated Ant Beckford as part of a shared SALESPERSON JEWELRY/PA visit. I personally reviewed the vital signs and labs. I personally provided a substantive portion of care for this patient and I approve the care plan aswritten by the ESPERANZA. I was involved with Medical Decision Making including: Please see A&P for additional details of medical decision making. Amy Gutiérrez MD Date of Service (when I saw the patient): 09/25/24 documented in this encounter Plan of Treatment Scheduled Referrals Name Type Priority Associated Diagnoses Orde r Schedule Adult ENT Head Grower Referral Referral Routine: Next available opening Tongue lesion Expected: 09/25/2024 (Approximate), Expires: 09/25/2025 documented as of this encounter Procedures Procedure Name Priority Date/Time Associated Diagnosis Comments CBC WITH PLATELETS AND DIFFERENTIAL Routine 09/25/2024 2:05 PM WEB ANALYTICS SPECIALIST Other fatigue CBC WITH PLATELETS & DIFFERENTIAL Routine 09/25/2024 2:05 PM WEB ANALYTICS SPECIALIST Other fatigue HEMOGLOBIN A1C Add-On 09/25/2024 2:05 PM WEB ANALYTICS SPECIALIST Other fatigue COMPREHENSIVE METABOLIC PANEL Routine 09/25/2024 2:05 PM WEB ANALYTICS SPECIALIST Other fatigue documented in this encounter Results * (ABNORMAL) Hemoglobin A1c (09/25/2024 2:05 PM WEB ANALYTICS SPECIALIST) Estimated Average Glucose 134(H) <117 mg/dL 09/26/2024 10:17 AM WEB ANALYTICS SPECIALIST [facility] Hemoglobin A1C 6.3(H) 0.0 - 5.6 % 09/26/2024 10:17 AM WEB ANALYTICS SPECIALIST [facility] Comment: Normal <5.7% Prediabetes 5.7-6.4% Diabetes 6.5% or higher Note: Adopted from ADA consensus guidelines. Blood BLOOD SPECIMEN / Unknown Venipuncture / Unknown 09/25/2024 2:05 PM WEB ANALYTICS SPECIALIST 09/25/2024 2:05 PM WEB ANALYTICS SPECIALIST us Amy Gutiérrez MD LAB - BLOOD ORDERABLES Fin al Result LABORATORY [facility] [place] [facility] [address] [place] [phone] * (ABNORMAL) CBC with platelets and differential (09/25/2024 2:05 PM WEB ANALYTICS SPECIALIST) WBC Count 6.9 4.0 - 11.0 10e3/uL 09/25/2024 2:08 PM WEB ANALYTICS SPECIALIST [facility] RBC Count 6.29(H) 4.40 - 5.90 10e6/uL 09/25/2024 2:08 PM WEB ANALYTICS SPECIALIST [facility] Hemoglobin 17.0 13.3 - 17.7 g/dL 09/25/2024 2:08 PM WEB ANALYTICS SPECIALIST [facility] Hematocrit 49.3 40.0 - 53.0 % 09/25/2024 2:08 PM WEB ANALYTICS SPECIALIST [facility] MCV 78 78 - 100 fL 09/25/2024 2:08 PM WEB ANALYTICS SPECIALIST [facility] MCH 27.0 26.5 - 33.0 pg 09/25/2024 2:08 PM WEB ANALYTICS SPECIALIST [facility] MCHC 34.5 31.5 - 36.5 g/dL 09/25/2024 2:08 PM WEB ANALYTICS SPECIALIST [facility] RDW 14.4 10.0 - 15.0 % 09/25/2024 2:08 PM WEB ANALYTICS SPECIALIST [facility] Platelet Count 339 150 - 450 10e3/uL 09/25/2024 2:08 PM WEB ANALYTICS SPECIALIST [facility] % Neutrophils 55 % 09/25/2024 2:08 PM WEB ANALYTICS SPECIALIST [facility] % Lymphocytes 31 % 09/25/2024 2:08 PM WEB ANALYTICS SPECIALIST [facility] % Monocytes 11 % 09/25/2024 2:08 PM WEB ANALYTICS SPECIALIST [facility] % Eosinophils 3 % 09/25/2024 2:08 PM WEB ANALYTICS SPECIALIST [facility] % Basophils 0 % 09/25/2024 2:08 PM WEB ANALYTICS SPECIALIST [facility] % Immature Granulocytes 1 % 09/25/2024 2:08 PM WEB ANALYTICS SPECIALIST [facility] Absolute Neutrophils 3.8 1.6 - 8.3 10e3/uL 09/25/2024 2:08 PM WEB ANALYTICS SPECIALIST [facility] Absolute Lymphocytes 2.2 0.8 - 5.3 10e3/uL 09/25/2024 2:08 PM WEB ANALYTICS SPECIALIST [facility] Absolute Monocytes 0.7 0.0 - 1.3 10e3/uL 09/25/2024 2:08 PM WEB ANALYTICS SPECIALIST [facility] Absolute Eosinophils 0.2 0.0 - 0.7 10e3/uL 09/25/2024 2:08 PM WEB ANALYTICS SPECIALIST [facility] Absolute Basophils 0.0 0.0 - 0.2 10e3/uL 09/25/2024 2:08 PM WEB ANALYTICS SPECIALIST [facility] Absolute Immature Granulocytes 0.0 <=0.4 10e3/uL 09/25/2024 2:08 PM WEB ANALYTICS SPECIALIST [facility] Blood BLOOD SPECIMEN / Unknown Venipuncture / Unknown 09/25/2024 2:05 PM WEB ANALYTICS SPECIALIST 09/25/2024 2:05 PM [facility] Amy Gutiérrez MD LAB - BLOOD ORDERABLES Fin al Result [facility] [place] [facility] [address] [place] [address], [facility] * (ABNORMAL) Comprehensive metabolic panel (BMP + Alb, Alk Phos, ALT, AST, Total. Bili, TP) (09/25/2024 2:05 PM WEB ANALYTICS SPECIALIST) Sodium 140 135 - 145 mmol/L 09/25/2024 9:49 PM WEB ANALYTICS SPECIALIST [facility] Potassium 3.5 3.4 - 5.3 mmol/L 09/25/2024 9:49 PM WEB ANALYTICS SPECIALIST [facility] Carbon Dioxide (CO2) 23 22 - 29 mmol/L 09/25/2024 9:49 PM WEB ANALYTICS SPECIALIST [facility] Anion Gap 15 7 - 15 mmol/L 09/25/2024 9:49 PM WEB ANALYTICS SPECIALIST [facility] Urea Nitrogen 15.4 6.0 - 20.0 mg/dL 09/25/2024 9:49 PM WEB ANALYTICS SPECIALIST [facility] Creatinine 0.82 0.67 - 1.17 mg/dL 09/25/2024 9:49 PM WEB ANALYTICS SPECIALIST [facility] GFR Estimate >90 >60 mL/min/1.7 3m2 09/25/2024 9:49 PM WEB ANALYTICS SPECIALIST [facility] Comment:eGFR calculated usin 2020 CKD-EPI equation. Calcium 9.7 8.8 - 10.4 mg/dL 09/25/2024 9:49 PM WEB ANALYTICS SPECIALIST [facility] Chloride 102 98 - 107 mmol/L 09/25/2024 9:49 PM WEB ANALYTICS SPECIALIST [facility] Glucose 136(H) 70 - 99 mg/dL 09/25/2024 9:49 PM WEB ANALYTICS SPECIALIST [facility] Alkaline Phosphatase 81 40 - 150 U/L 09/25/2024 9:49 PM WEB ANALYTICS SPECIALIST [facility] AST 24 0 - 45 U/L 09/25/2024 9:49 PM WEB ANALYTICS SPECIALIST [facility] ALT 28 0 - 70 U/L 09/25/2024 9:49 PM WEB ANALYTICS SPECIALIST [facility] Protein Total 6.9 6.4 - 8.3 g/dL 09/25/2024 9:49 PM WEB ANALYTICS SPECIALIST [facility] Albumin 4.4 3.5 - 5.2 g/dL 09/25/2024 9:49 PM WEB ANALYTICS SPECIALIST [facility] Bilirubin Total 0.4 <=1.2 mg/dL 09/25/2024 9:49 PM WEB ANALYTICS SPECIALIST [facility] Blood BLOOD SPECIMEN / Unknown Venipuncture / Unknown 09/25/2024 2:05 PM WEB ANALYTICS SPECIALIST 09/25/2024 2:05 PM WEB ANALYTICS SPECIALIST us Amy Gutiérrez MD LAB - BLOOD ORDERABLES Fin al Result [facility] [place] [facility] [address] [facility], [address] [place] [address] documented in this encounter Visit Diagnoses Diagnosis Other fatigue- Primary Tongue lesion Other specified conditions of the tongue documented in this encounter Additional Health Concerns Assessment Noted Time PHQ-9 Depression Total Score: 14 025 12:28 PM WEB ANALYTICS SPECIALIST documented as of this encounter Care Teams Dredge Master Relationship Specialty Start Date End Date Valentin Muñoz MD [facility] [place] [address] PCP - General Internal Medicine 10/08/10 Valentin Muñoz MD [address] [place] [address] [place] [address] Assigned PCP 10/03/16 Omero Pham MD [facility] [address] [place], [place] [phone] Assigned Heart and Vascular Provider 04/12/24 Roro Acevedo PA-C [address] [place], [place] [phone] Assigned Cancer Care Provider 04/12/24 Josephine Krishnan PA-C [address] [place], [place] [phone] Assigned Sleep Provider 07/13/24 documented as of this encounter
--- OUTSIDE RECORDS SUMMARY | 2024-10-14 03:57 | XMS_ITS | Encounter Summary ---
Author Organization [place] Address [address] [place] [address] Care Team Providers Care Automated Cutting Machine Operator Name Role Phone Valentin Muñoz MD Primary Care Provider [phone] Valentin Muñoz MD Unavailable [phone] Omero Pham MD Unavailable + [phone] Roro Acevedo PA-C Unavailable +[phone] Josephine Krishnan PA-C Unavailable +[phone] Encounter Details Date Type Department Care Team (Latest Contact Info) Description 10/02/2024 Travel Social History Tobacco Use Types Packs/Day [...] often do you attend chur ch or mormonism services? More than 4 times [...] Answer Date Recorded PHQ-2 Score 4 09/25/2024 [facility] of Occupat ional Health - Occupational Stress [...] on file Legal Sex Male 5:04 AM PORCELAIN WAXER Gender Identity Not on file Sexual Orientation Not on file documented as of this encounter Plan of Treatment Not on file documented as of this encounter Visit Diagnoses Not on filedocumented in this encounter Additional Health Concerns Assessment Noted Time PHQ-9 Depression Total Score: 14 025 12:28 PM PORCELAIN WAXER documented as of this encounter Care Teams Automated Cutting Machine Operator Relationship Specialty Start Date End Date Valentin Muñoz MD [facility] [place] [address] PCP - General Internal Medicine 10/08/10 Valentin Muñoz MD [address] [place] [address] [place] [address] Assigned PCP 10/03/16 Omero Pham MD [facility] [address] [place], [place] [address] Assigned Heart and Vascular Provider 04/12/24 Roro Acevedo, PAShannaC [address] [place] [address] Assigned Cancer Care Provider 04/12/24 Josephine Krishnan PA-C [address] [place] [address] Assigned Sleep Provider 07/13/24 documented as of this encounter
--- OUTSIDE RECORDS SUMMARY | 2024-10-14 03:57 | XMS_ITS | Encounter Summary ---
Author Organization [facility] Address [address] [place] [address] Care Team Providers Care Perfect Binder Feeder Offbearer Name Role Phone Valentin Muñoz MD Primary Care Provider [phone] Valentin Muñoz MD Unavailable [phone] Josephine Krishnan PA-C Unavailable [phone] Omero Pham MD Unavailable [phone] Roro AcevedoC Unavailable + [phone] Josephine Krishnan PA-C Unavailable [phone] Encounter Details Date Type Department Care Team (Late st Contact Info) Description 01/03/2022 [facility] [place] [facility] [address] [address] Felipa [place], [place] Social History [...] on file Legal Sex Male 5:04 AM GAUGE CONTROLLER Gender Identity Not on file Sexual Orientation Not on file documented as of this encounter Plan of Treatment Not on file documented as of this encounter Visit Diagnoses Not on filedocumented in this encounter Additional Health Concerns Infection Onset Date Last Indicated Resolved Time Influenza 07/26/2022 07/26/2022 08/02/2022 11:3 9 PM GAUGE CONTROLLER documented as of this encounter Care Teams Perfect Binder Feeder Offbearer Relationship Specialty Start Date End Date Valentin Muñoz MD [address] [place] [address] [place] [address] PCP - General Internal Medicine 10/08/10 Valentin Muñoz MD [address] [place] [address] [place] [address] Assigned PCP 10/03/16 Josephine Krishnan PA-C [address] [place] [address] Assigned Sleep Provider 01/29/22 Omero Pham MD [facility] [address] [place] [address] Assigned Heart and Vascular Provider 04/12/24 Roro Acevedo PA-C [address] [place], [place] [address] Assigned Cancer Care Provider 04/12/24 Josephine Krishnan PA-C [address] [place] [address] Assigned Sleep Provider 07/13/24 documented as of this encounter
--- OUTSIDE RECORDS SUMMARY | 2024-10-14 03:57 | XMS_ITS | Encounter Summary ---
Author Organization [facility] Address [address] [place] [address]. [place] [address] Care Team Providers Care Chief Financial Officer Name Role Phone Valentin Muñoz MD Primary Care Provider [phone] Valentin Muñoz MD Unavailable [phone] Omero Pham MD Unavailable + [phone] Roro Acevedo PA-C Unavailable [phone] Josephine Krishnan PA-C Unavailable [phone] Reason for Visit * Reason Comments Prior Authorization Allyssa KAY Approved Encounter Details Date Type Department Care Team (Latest Contact Info) Description 04/10/2024 Documentation Only [facility] [address] [place] [address] [address] [place] [id number] Shawna Redman RPH Prior Authorization (Allyssa KAY [...] often do you attend chur ch or latter day services? 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 Gender Identity Not on file Sexual Orientation Not on file documented as of this encounter Plan of Treatment Not on file documented as of this encounter Visit Diagnoses Not on filedocumented in this encounter Additional Health Concerns Assessment Noted Time PHQ-9 Depression Total Score: 24 024 11:07 AM CDT documented as of this encounter Care Teams Chief Financial Officer Relationship Specialty Start Date End Date Valentin Muñoz MD [address] [place] [address] [place] [address] PCP - General Internal Medicine 10/08/10 Valentin Muñoz MD [address] [place] [address] [place] [address] Assigned PCP 10/03/16 Omero Pham MD [facility] [address] [email or web address] [address] [place], [place] [address] Assigned Heart and Vascular Provider 04/12/24 Roro Acevedo PA-C [address] [place], [place] [address] Assigned Cancer Care Provider 04/12/24 Josephine Krishnan PA-C [address] [facility] 103 [place], [place] [address] Assigned Sleep Provider 07/13/24 documented as of this encounter
--- OUTSIDE RECORDS SUMMARY | 2024-10-14 03:57 | XMS_ITS | Encounter Summary ---
Author Organization [place] Address [address] [place] [address] Care Team Providers Care Model Maker Firearms Name Role Phone Valentin Muñoz MD Primary Care Provider [phone] Valentin Muñoz MD Unavailable [phone] Omero Pham MD Unavailable + [phone] Roro Acevedo PA-C Unavailable [phone] Josephine Krishnan PA-C Unavailable [phone] Encounter Details Date Type Department Care Team (Latest Contact Info) Description 09/25/2024 Travel Social History Tobacco Use Types Packs/Day [...] often do you attend chur ch or voodoo services? 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 Gender Identity Not on file Sexual Orientation Not on file documented as of this encounter Plan of Treatment Not on file documented as of this encounter Visit Diagnoses Not on filedocumented in this encounter Additional Health Concerns Assessment Noted Time PHQ-9 Depression Total Score: 14 025 12:28 PM REGULAR SENIOR CARE PROVIDER documented as of this encounter Care Teams Model Maker Firearms Relationship Specialty Start Date End Date Valentin Muñoz MD [facility] [place] [address] PCP - General Internal Medicine 10/08/10 Valentin Muñoz MD [address] [place] [address] [place] [address] Assigned PCP 10/03/16 Omero Pham MD [facility] [address] [place], [place] [address] Assigned Heart and Vascular Provider 04/12/24 Roro Acevedo, PAShannaC [address] [place] [address] Assigned Cancer Care Provider 04/12/24 Josephine Krishnan PA-C [address] [place] [address] Assigned Sleep Provider 07/13/24 documented as of this encounter
--- OUTSIDE RECORDS SUMMARY | 2024-10-14 03:57 | XMS_ITS | Encounter Summary ---
Author Organization [place] Address [address] [place] [address] Care Team Providers Care Coke Crusher Operator Name Role Phone Valentin Muñoz MD Primary Care Provider [phone] Valentin Muñoz MD Unavailable [phone] Josephine Krishnan PA-C Unavailable [phone] Omero Pham MD Unavailable + [phone] Roro AcevedoC Unavailable + [phone] Josephine Krishnan PA-C Unavailable + [phone] Encounter Details Date Type Department Care Team (Late st Contact Info) Description 01/24/2022 [facility] [place] [address] [address] [place], [place] Social History [...] How often do you attend chur or catholic services? More than 4 times per year 01/28/2022 Do you belong to any clubs o r organizations such as restorationist groups, unions, fraternal or athletic groups, or [...] Answer Date Recorded PHQ-2 Score 0 01/28/2022 [facility] of Occupat ional Health - Occupational Stress [...] in a nursing home (including now)? 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 Gender Identity Not on file Sexual Orientation [...] Influenza 07/26/2022 07/26/2022 08/02/2022 11:3 9 PM SNUFF BLENDER documented as of this encounter Care Teams Coke Crusher Operator Relationship Specialty Start Date End Date Valentin Muñoz MD [address] [facility] [place] [address] PCP - General Internal Medicine 10/08/10 Valentin Muñoz MD [address] [facility] [place] [address] Assigned PCP 10/03/16 Josephine Krishnan PA-C [address] [facility] 103 [place] [address] Assigned Sleep Provider 01/29/22 Omero Pham MD [facility] [address] [place] [address] Assigned Heart and Vascular Provider 04/12/24 Roro Acevedo PA-C [address] [place] [address] Assigned Cancer Care Provider 04/12/24 Josephine Krishnan PA-C [address] [address] Assigned Sleep Provider 07/13/24 documented as of this encounter
--- OUTSIDE RECORDS SUMMARY | 2024-10-14 03:57 | XMS_ITS | Encounter Summary ---
Author Organization [place] Address [address] [place] [address] Care Team Providers Care Rn Neonatal Icu Name Role Phone Valentin Muñoz MD Primary Care Provider [phone] Valentin Muñoz MD Unavailable [phone] Josephine Krishnan PA-C Unavailable + [phone] Omero Pham MD Unavailable + [phone] Roro Acevedo PA-C Unavailable + [phone] Josephine Krishnan PA-C Unavailable [phone] Reason for Visit * Reason Comments Medication Refill Encounter Details Date Type Department Care Team (Late st Contact Info) Description 10/02/2020 [facility] [place] [address] [facility] [address] [place] [address] Valentin Louis, PAShannaC [address] [place] [address] Medication Refill Social History Tobacco Use Types [...] on file 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 Gender Identity Not on file Sexual Orientation Not on file documented as of this encounter Plan of Treatment Not on file documented as of this encounter Visit Diagnoses Diagnosis Essential hypertension Unspecified essential hypertension documented in this encounter Additional Health Concerns Infection Onset Date Last Indicated Resolved Time Influenza 07/26/2022 07/26/2022 08/02/2022 11:3 9 PM PHLEBOTOMIST documented as of this encounter Care Teams Rn Neonatal Icu Relationship Specialty Start Date End Date Valentin Muñoz MD [address] [place] [address] [place] [address] PCP - General Internal Medicine 10/08/10 Valentin Muñoz MD [address] [place] [address] [place] [address] Assigned PCP 10/03/16 Josephine Krishnan PA-C [address] [place] [address] Assigned Sleep Provider 01/29/22 Omero Pham MD [facility] [address] [place], [place] [address] Assigned Heart and Vascular Provider 04/12/24 Roro Acevedo PA-C [address] [place], [place] [address] Assigned Cancer Care Provider 04/12/24 Josephine Krishnan PA-C [address] [place], [place] [address] Assigned Sleep Provider 07/13/24 documented as of this encounter
--- OUTSIDE RECORDS SUMMARY | 2024-10-14 03:57 | XMS_ITS | Encounter Summary ---
Author Organization [place] Address [address] [place] [address] Care Team Providers Care Assembler For Puller Over Hand Name Role Phone Valentin Muñoz MD Primary Care Provider [phone] Valentin Muñoz MD Unavailable [phone] Omero Pham MD Unavailable + [phone] Roro Acevedo PA-C Unavailable + [phone] Josephine KrishnanC Unavailable + [phone] Encounter Details Date Type Department Care Team (Late st Contact Info) Description 09/25/2024 [facility] Medical Advice [facility] [place] [address] [place] [address] [address] [place] [address] Valentin Muñoz MD [address] [facility] [place] [address] Social History Tobacco Use [...] week 04/04/2023 How often do you attend [facility] or scientologist services? More than 4 times per year [...] Answer Date Recorded PHQ-2 Score 4 09/25/2024 [facility] of Occupat ional [facility] - Occupational Stress Questionnaire Answer [...] place to sleep or slept in a assisted (including now)? 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 Gender Identity Not on file Sexual Orientation Not on file documented as of this encounter Plan of Treatment Not on file documented as of this encounter Visit Diagnoses Not on filedocumented in this encounter Additional Health Concerns Assessment Noted Time PHQ-9 Depression Total Score: 14 025 12:28 PM FAMILY PRACTICE DOCTOR documented as of this encounter Care Teams Assembler For Puller Over Hand Relationship Specialty Start Date End Date Valentin Muñoz MD [address] [place] [address] [place] [address] PCP - General Internal Medicine 10/08/10 Valentin Muñoz MD [address] [place] [address] [place] [address] Assigned PCP 10/03/16 Omero Pham MD [facility] [address] [place] [address] Assigned Heart and Vascular Provider 04/12/24 Roro Acevedo PA-C [address] [place] [address] Assigned Cancer Care Provider 04/12/24 Josephine Krishnan PA-C [address] [address] Assigned Sleep Provider 07/13/24 documented as of this encounter
--- OUTSIDE RECORDS SUMMARY | 2024-10-14 03:57 | XMS_ITS | Encounter Summary ---
Author Organization [place] Address [address] [place] [address] Care Team Providers Care Library Acquisitions Technician Name Role Phone Valentin Muñoz MD Primary Care Provider [phone] Valentin Muñoz MD Unavailable [phone] Omero Pham MD Unavailable + [phone] Roro Acevedo PA-C Unavailable + [phone] Josephine Krishnan PA-C Unavailable [phone] Reason for Visit * Reason Comments Abdominal Pain Nausea Encounter Details Date Type Department Care Team (Late st Contact Info) Description 10/02/2024 11:30 AM AIR LIAISON AND SPECIAL STAFF Office Visit [facility] [address] [place] [address] Drive [address] [place] [address] Valentin Muñoz MD [address] [place] [address] [place] [address] Acute diarrhea (Primary Dx) Social History Tobacco Use Types [...] Answer Date Recorded PHQ-2 Score 4 09/25/2024 [facility] of Occupat ional Health - [...] on file Legal Sex Male 5:04 AM AIR LIAISON AND SPECIAL STAFF Gender Identity Not on file Sexual Orientation Not on file documented as of this encounter Last Filed Vital Signs Vital Sign Reading Time Taken Comments Blood Pressure 127/89 10/02/2024 10:52 AM AIR LIAISON AND SPECIAL STAFF Pulse 113 10/02/2024 10:52 AM AIR LIAISON AND SPECIAL STAFF Temperature 36.7 C (98 F) 10/02/2024 10:52 AM AIR LIAISON AND SPECIAL STAFF Respiratory Rate 20 10/02/2024 10:5 2 AM AIR LIAISON AND SPECIAL STAFF Oxygen Saturation 96% 10/02/2024 10: 52 AM AIR LIAISON AND SPECIAL STAFF Inhaled Oxygen Concentration - - Weight 186.1 kg (410 lb 4.8 oz) 025 10:52 AM AIR LIAISON AND SPECIAL STAFF Height 189 cm (6' 2.41) 10/02/2024 10: 52 AM AIR LIAISON AND SPECIAL STAFF Body Mass Index 52.1 10/02/2024 10:52 AM AIR LIAISON AND SPECIAL STAFF documented in this encounter Progress Notes * Valentin Muñoz MD - 10/02/2024 11:30 AM CST Assessment & Plan ICD-10-CM 1. Acute diarrhea R19.7 Enteric Bacteria and Virus Panel by ROSA M Stool Concern for infectious cause for his diarrhea. Sx are persisting. Stool ROSA M ordered. Continue to hydrate. [place] foods. Valentin Muñoz MD Bassam Cain is a 39 year old, presenting for the following health issues: Abdominal Pain and Nausea 10/02/2024 10:51 AM Additional Questions Roomed by NH 10/02/2024 10:51 AM Patient Reported Additional Medications Patient reports taking the following new medications None HPI Concern - Upset stomach and nausea Onset: started a couple of weeks ago Description: stomach pain loose stools also having fatigue Intensity: moderate Progression of Symptoms: worsening Accompanying Signs & Symptoms: fatigue ness Previous history of similar problem: NA Precipitating factors: Worsened by: When eating a big meal Alleviating factors: Improved by: None Therapies tried and outcome: Tums Sx ongoing for the past 2-3 weeks. Loose stools. Several per day. Having fatigue sx. Evaluated in clinic 09/25, labs were drawn. Normal CBC, CMP. A1C mildly elevated at 6.3%. No recent antibiotic use. No ill contacts. No travel. Does have well water at home, no others w/ sx. Objective BP 127/89 (BP Location: Right arm, Patient Position: Sitting, Cuff Size: Adult Large) Pulse 113 Temp 98 ??F (36.7 ??C) (Temporal) Resp 20 Ht 1.89 m (6' 2.41) Wt (!) 186.1 kg (410 lb 4.8 oz) SpO2 96% BMI 52.10 kg/m?? Body mass index is 52.1 kg/m??. Physical Exam GEN: No distress Signed Electronically by: Valentin Muñoz MD LIAISON AND SPECIAL STAFF documented in this encounter Plan of Treatment Scheduled Orders Name Type Priority Associated Diagnoses Orde r Schedule Enteric Bacteria and Virus Panel by ROSA M Stool Microbiology Routine Acute diarrhea Expected: 10/02/2024 (Approximate), Expires: 10/02/2025 documented as of this encounter Visit Diagnoses Diagnosis Acute diarrhea- Primary Diarrhea documented in this encounter Additional Health Concerns Assessment Noted Time PHQ-9 Depression Total Score: 14 025 12:28 PM AIR LIAISON AND SPECIAL STAFF documented as of this encounter Care Teams Library Acquisitions Technician Relationship Specialty Start Date End Date Valentin Muñoz MD [address] [facility] [place] [address] PCP - General Internal Medicine 10/08/10 Valentin Muñoz MD [address] [facility] [place] [address] Assigned PCP 10/03/16 Omero Pham MD [facility] [address] [place], [place] [address] Assigned Heart and Vascular Provider 04/12/24 Roro Acevedo PA-C [address] [place], [place] [address] Assigned Cancer Care Provider 04/12/24 Josephine Krishnan PA-C [address] [facility] 103 [place], [place] [address] Assigned Sleep Provider 07/13/24 documented as of this encounter
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
--- OUTSIDE RECORDS SUMMARY | 2024-10-14 03:57 | XMS_ITS | Referral Summary ---
Author Organization [facility] Address [address] [place] [address] Care Team Providers Care Rocket Motor Mechanic Name Role Phone Unknown, Md Primary Care [...] Plan of Treatment Not on file Procedures Procedure Name Priority Date/Time Associated Diagnosis Comments BASIC METABOLIC PROF MAGNESIUM Routine 05/23/2024 3:02 PM CDT LIPID PROFILE CASCADE Timed Procedure 05/15/2024 5:47 AM CDT from Last 3 Months or Most Recently Relevant to Health Maintenance Results * (ABNORMAL) Basic Metabolic Profile Magnesium (05/23/2024 3:02 PM CDT) Sodium 141 136 - 145 mmol/L 05/23/2024 3:46 PM [facility] Potassium 4.4 3.4 - 5.1 mmol/L 05/23/2024 3:46 PM [facility] Comment:Interpret with cauti on, specimen slightly hemolyzed. Results may be affected Chloride 110(H) 98 - 108 mmol/L 05/23/2024 3:46 PM [facility] Carbon Dioxide 23 20 - 31 mmol/L 05/23/2024 3:46 PM [facility] BUN (Urea Nitro) 15 9 - 23 mg/dL 05/23/2024 3:46 PM [facility] Creatinine 0.96 0.73 - 1.18 mg/dL 05/23/2024 3:46 PM [facility] Est GFR (CKD-EPI) >60.00 >60.00 mL/min/1. 73m2 05/23/2024 3:46 PM [facility] Comment:Calculation based on the Chronic Kidney Disease Epidemiology Collaboration (CKD-EPI) equation refit without adjustment for race. Glucose 71(L) 74 - 106 mg/dL 05/23/2024 3:46 PM CDT [facility] Calcium, Serum 10.3 8.7 - 10.4 mg/dL 05/23/2024 3:46 PM CDT [facility] Anion Gap 8.0 0.0 - 15.0 mmol/L 05/23/2024 3:46 PM CDT [facility] Magnesium 2.3 1.6 - 2.6 mg/dL 05/23/2024 3:46 PM CDT [facility] Blood Venipuncture / Unknown 05/23/2024 3:02 PM CDT 05/23/2024 3:08 PM CDT us Lucretia Quinones PA-C CHEMISTRY ORDERABLE Final Result [facility] [address] [place] [address] * (ABNORMAL) Lipid Profile [place] (05/15/2024 5:47 AM CDT) Specimen Type Fasting 05/15/2024 7:24 AM T [facility] Cholesterol 110 <200 mg/dL 05/15/2024 7:24 AM T [facility] Triglycerides 86 <150 mg/dL 05/15/2024 7:24 AM T [facility] LDL Chol, Calc 56 <100 mg/dL 05/15/2024 7:24 AM [facility] HDL Cholesterol 37(L) >40 mg/dL 7:24 AM [facility] Chol/HDL Ratio 3.0 0.0 - 4.9 05/15/2024 7:24 AM T [facility] Blood 05/15/2024 5:47 AM CDT 05/15/2024 6:[address] [facility] - 05/15/2024 7:24 AM CDT LDL CHOLESTEROL REFERENCE RANGES: (FOR PATIENTS W/O HEART DISEASE) <100 mg/dL = Optimal 100-129 mg/dL = Near/Above Optimal 130-159 mg/dL = Borderline High 160-189 mg/dL = High >/= 190 mg/dL = Very High us Ronny Bolivar MD CHEMISTRY ORDERABLE Final Re sult [facility] [address] [place] [address] from Last 3 Months or Most Recently Relevant to Health Maintenance Insurance [facility] ([facility] Advance Directives For more information, please contact: [phone] * Full Code (Latest Code Status on File) Date Activated Date Inactivated Comments 05/13/2024 1:58 PM 05/28/2024 6:54 PM Question Answer Comments How was code status determined? Patient Care Teams Rocket Motor Mechanic Relationship Specialty Start Date End Date Unknown, NO ADDRESS/PHONE/FAX AFFILIATED PCP - General 05/12/24
--- OUTSIDE RECORDS SUMMARY | 2024-10-14 03:57 | XMS_ITS | Encounter Summary ---
Author Organization [facility] Address [address] [place] [address] Care Team Providers Care Digital Imager Name Role Phone Valentin Muñoz MD Primary Care Provider [phone] Valentin Muñoz MD Unavailable [phone] Omero Pham MD Unavailable + [phone] Roro Acevedo PA-C Unavailable + [phone] Josephine Krishnan-C Unavailable + [phone] Reason for Visit * Reason Onset Date Comments Refill Request 09/05/2024 Encounter Details Date Type Department Care Team (Late st Contact Info) Description 09/05/2024 Ashwin Motley [facility] Janelle [address] [place] [address] [address] [place] [address] Valentin Muñoz MD [address] [place] [address] [place] [address] Refill Request Social History Tobacco Use Types Packs/Day [...] often do you attend chur ch or episcopalian services? 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 NGUAL MIDDLE SCHOOL TEACHER documented in this encounter Plan of Treatment Not on file documented as of this encounter Visit Diagnoses Diagnosis Hypokalemia Hypopotassemia documented in this encounter Additional Health Concerns Assessment Noted Time PHQ-9 Depression Total Score: 14 024 1:01 PM CDT documented as of this encounter Care Teams Digital Imager Relationship Specialty Start Date End Date Valentin Muñoz MD [address] [place] [address] [place] [address] PCP - General Internal Medicine 10/08/10 Valentin Muñoz MD [address] [place] [address] [place] [address] Assigned PCP 10/03/16 Omero Pham MD [facility] [address] [place] [address] Assigned Heart and Vascular Provider 04/12/24 Roro Acevedo PA-C [address] [place] [address] Assigned Cancer Care Provider 04/12/24 Josephine Krishnan PA-C [address] [address] Assigned Sleep Provider 07/13/24 documented as of this encounter
--- OUTSIDE RECORDS SUMMARY | 2024-10-14 03:57 | XMS_ITS | Encounter Summary ---
Author Organization [facility] Address [address] [place] [address] Care Team Providers Care Outside Production Inspector Name Role Phone Valentin Muñoz MD Primary Care Provider [phone] Valentin Muñoz MD Unavailable [phone] Josephine Krishnan PA-C Unavailable [phone] Omero Pham MD Unavailable + [phone] Roro Acevedo-C Unavailable + [phone] Josephine Krishnan PA-C Unavailable + [phone] Encounter Details Date Type Department Care Team (Late st Contact Info) Description 11/05/2021 [facility] Medical Advice [address] [place] [address] Dilia Lei Social History Tobacco Use [...] on file 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 Gender Identity Not on file Sexual Orientation Not on file documented as of this encounter Plan of Treatment Not on file documented as of this encounter Visit Diagnoses Not on filedocumented in this encounter Additional Health Concerns Infection Onset Date Last Indicated Resolved Time Influenza 07/26/2022 07/26/2022 08/02/2022 11:3 9 PM RN IMCU documented as of this encounter Care Teams Outside Production Inspector Relationship Specialty Start Date End Date Valentin Muñoz MD [address] [place] [address] [place] [address] PCP - General Internal Medicine 10/08/10 Valentin Muñoz MD [address] [place] [address] [place] [address] Assigned PCP 10/03/16 Josephine Krishnan PA-C [address] [place] [address] Assigned Sleep Provider 01/29/22 Omero Pham MD [facility] [address] [place] [address] Assigned Heart and Vascular Provider 04/12/24 Roro Acevedo PA-C [address] [place], [place] [address] Assigned Cancer Care Provider 04/12/24 Josephine Krishnan PA-C [address] [place] [address] Assigned Sleep Provider 07/13/24 documented as of this encounter
--- OUTSIDE RECORDS SUMMARY | 2024-10-14 03:57 | XMS_ITS | Encounter Summary ---
Author Organization [facility] Address [address] [place] [address] Care Team Providers Care Vp Packaging Name Role Phone Valentin Muñoz MD Primary Care Provider [phone] Valentin Muñoz MD Unavailable [phone] Omero Pham MD Unavailable + [phone] Roro Acevedo PA-C Unavailable + [phone] Josephine KrishnanC Unavailable + [phone] Encounter Details Date Type Department Care Team (Late st Contact Info) Description 05/21/2024 My[facility] Medical Advice [facility] [address] [place] [address] Valentin Muñoz MD [address] [facility] [place] [address] Social History Tobacco [...] week 04/04/2023 How often do you attend [facility] or yazidism services? 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 MyChart note sent. documented in this encounter Plan of Treatment Not on file documented as of this encounter Visit Diagnoses Not on filedocumented in this encounter Additional Health Concerns Assessment Noted Time PHQ-9 Depression Total Score: 24 024 11:07 AM CDT documented as of this encounter Care Teams Vp Packaging Relationship Specialty Start Date End Date Valentin Muñoz MD [address] [facility] [place] [address] PCP - General Internal Medicine 10/08/10 Valentin Muñoz MD [address] [facility] [place] [address] Assigned PCP 10/03/16 Omero Pham MD [facility] [address] [place] [address] Assigned Heart and Vascular Provider 04/12/24 Roro Acevedo PA-C [address] [place] [address] Assigned Cancer Care Provider 04/12/24 Josephine Krishnan PA-C [address] [address] Assigned Sleep Provider 07/13/24 documented as of this encounter
--- OUTSIDE RECORDS SUMMARY | 2024-10-14 03:57 | XMS_ITS | Encounter Summary ---
Author Organization [facility] Address [address] [place] [address] Care Team Providers Care Associate Media Director Name Role Phone Valentin Muñoz MD Primary Care Provider [phone] Valentin Muñoz MD Unavailable [phone] Omero Pham MD Unavailable + [phone] Roro Acevedo PA-C Unavailable + [phone] Josephine Krishnan-C Unavailable [phone] Encounter Details Date Type Department Care Team (Late st Contact Info) Description 09/26/2024 [facility] Medical Advice [address] [address] Armida Mills, RN Social History Tobacco Use Types Packs/Day Years [...] any clubs o r organizations such as jain groups, unions, fraternal or athletic groups, or [...] Answer Date Recorded PHQ-2 Score 4 09/25/2024 [facility] Occupat ional [facility] - Occupational Stress Questionnaire Answer Date [...] on file 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 Gender Identity Not on file Sexual Orientation Not on file documented as of this encounter Plan of Treatment Not on file documented as of this encounter Visit Diagnoses Not on filedocumented in this encounter Additional Health Concerns Assessment Noted Time PHQ-9 Depression Total Score: 14 025 12:28 PM EVENT MARKETING ASSISTANT documented as of this encounter Care Teams Associate Media Director Relationship Specialty Start Date End Date Valentin Muñoz MD [address] [place] [address] [place] [address] PCP - General Internal Medicine 10/08/10 Valentin Muñoz MD [address] [place] [address] [place] [address] Assigned PCP 10/03/16 Omero Pham MD [facility] [address] [place] [address] Assigned Heart and Vascular Provider 04/12/24 Roro Acevedo, PAShannaC [address] [place] [address] Assigned Cancer Care Provider 04/12/24 oJsephine Krishnan PA-C [address] [facility] [address] [place] [address] Assigned Sleep Provider 07/13/24 documented as of this encounter
--- OUTSIDE RECORDS SUMMARY | 2024-10-14 03:57 | XMS_ITS | Encounter Summary ---
Author Organization [facility] Address [address] [place] [address] Care Team Providers Care Pediatric Intensive Physician Name Role Phone Valentin Muñoz MD Primary Care Provider [phone] Valentin Muñoz MD Unavailable [phone] Omero Pham MD Unavailable + [phone] Roro Acevedo PA-C Unavailable + [phone] Josephine Krishnan PA-C Unavailable [phone] Reason for Visit * Reason Onset Date Comments Appointment 09/26/2024 Encounter Details Date Type Department Care Team (Late st Contact Info) Description 09/26/2024 Telephone [facility] [address] [address] Unknown, Provider Appointment (/) Social History Tobacco Use Types Packs/Day [...] often do you attend chur ch or sikhism services? More than 4 times per year [...] Answer Date Recorded PHQ-2 Score 4 09/25/2024 [facility] Occupat ional [facility] - Occupational Stress Questionnaire Answer Date [...] place to sleep or slept in a [place] health care facility (including now)? 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 Pt lives in [place] and works in [place]. Pt agreeable to an appointment at the [facility] location and is scheduled to see Guillermo Quintanilla PA-C on 10/11/2024 at 2:40 pm. Pt verbalized understanding and is agreeable to date/time/location/reason for appointment. Tahmina Caputo RN on 09/26/2024 at 9:52 AM LE HYPERION CONSULTANT * Telephone Encounter - Alison Painter RN - 09/26/2024 9:44 AM ORACLE HYPERION CONSULTANT This is fine, looks like we have openings on 10/07, please call and help arrange. Alison Painter RN on 09/26/2024 at 9:45 AM LE HYPERION CONSULTANT * Telephone Encounter - Kinza Lynn - 09/26/2024 9:[address] Peña see patient for a tongue lesion? LE HYPERION CONSULTANT * Telephone Encounter - Florecita Shah - 09/26/2024 8:57 AM CST [facility] Phone Message May a detailed message be left on voicemail: yes Reason for Call: Appointment Intake Referring Provider Name: Amy Gutiérrez MD Diagnosis and/or Symptoms: Tongue Lesion No response in chat, patient has no location preference, sending to all Dx not in our protocols Action Taken: Other: ENT Travel Screening: Not Applicable Date of Service: LE HYPERION CONSULTANT documented in this encounter Plan of Treatment Not on file documented as of this encounter Visit Diagnoses Not on filedocumented in this encounter Additional Health Concerns Assessment Noted Time PHQ-9 Depression Total Score: 14 025 12:28 PM ORACLE HYPERION CONSULTANT documented as of this encounter Care Teams Pediatric Intensive Physician Relationship Specialty Start Date End Date Valentin Muñoz MD [address] [place] [address] [place] [address] PCP - General Internal Medicine 10/08/10 Valentin Muñoz MD [address] [place] [address] [place] [address] Assigned PCP 10/03/16 Omero Pham MD [facility] [address] [facility] [address] [place], [place] [address] Assigned Heart and Vascular Provider 04/12/24 Roro Acevedo, PAShannaC [address] [place] [address] Assigned Cancer Care Provider 04/12/24 Josephine Krishnan PA-C [address] [place] [address] Assigned Sleep Provider 07/13/24 documented as of this encounter
--- OUTSIDE RECORDS SUMMARY | 2024-10-14 03:57 | XMS_ITS | Clinical Summary ---
Author Organization [facility] Address [address] [place] [address] Care Team Providers Care Locker Room Clerk Name Role Phone Valentin Muñoz MD Primary Care Provider [phone] Valentin Muñoz MD Unavailable [phone] Omero Pham MD Unavailable [phone] Roro Acevedo PA-C Unavailable [phone] Josephine Krishnan-C Unavailable [phone] Allergies Active Allergy Reactions Criticality Noted Date Comments Cephalexin Hives Medium 10/14/2011 Medications apixaban ANTICOAGULANT (ELIQUIS ANTICOAGULANT) 5 MG tabletIndications :Acute saddle pulmonary embolism with acute cor pulmonale (H),Acute deep vein thrombosis (DVT) of iliac vein of right lower extremity (H) Take 1 tablet (5 mg) by mouth 2 times daily 180 tablet 1 04/09/20 24 Active modafinil (PROVIGIL) 200 MG tablet Take 200 mg by mouth. 05/28/20 24 Active potassium chloride misa ER (KLOR-CON M20) 20 MEQ CR tabletIndications :Hypokalemia Take 1 tablet (20 mEq) by mouth daily. 90 tablet 1 05/31/20 24 Active lamoTRIgine (LAMICTAL) 100 MG tablet Take 1 tablet by mouth daily at 2 pm. 09/06/19 25 Active traZODone (DESYREL) 100 MG tablet Take 1 tablet by mouth daily at 2 pm. 09/05/19 25 Active lisinopril-hydroc hlorothiazide (ZESTORETIC) 20-25 MG tabletIndications :Essential hypertension Take 2 tablets by mouth daily. 180 tablet 1 10/03/19 Active risperiDONE (RISPERDAL) 2 MG tablet Take 1 tablet by mouth at bedtime 02/06/20 24 025 Discontinued VITAMIN D-[address] 25 MCG (1000 UT) tablet Take 25 mcg by mouth. 05/28/20 24 025 Discontinued venlafaxine (EFFEXOR XR) 150 MG 24 hr capsule Take 150 mg by mouth. 05/28/20 24 025 Discontinued zolpidem (AMBIEN) 10 MG tablet Take 10 mg by mouth daily. 05/27/20 025 Discontinued lisinopril-hydroc hlorothiazide (ZESTORETIC) 20-25 MG tabletIndications :Essential hypertension Take 2 tablets by mouth daily. 180 tablet 3 06/26/20 025 Discontinued(Re order (No AVS)) VRAYLAR 1.5 MG capsule Take 1.5 mg by mouth daily. 09/03/19 025 Discontinued(Th erapy completed (No AVS)) Active Problems Problem Noted Date Diagnosed Date Acute deep vein thrombosis ( DVT) of iliac vein of right lower extremity 02/19/2024 Severe recurrent major depre ssion without psychotic features 01/30/2024 CAROLE (generalized anxiety disorder) 01/30/2024 Suicidal ideation 01/30/2024 MDD (major depressive disorder), recurrent episo de, severe 01/30/2024 Insomnia, unspecified type 01/30/2024 Hypokalemia 01/17/2024 Adjustment disorder with anxious mood 01/17/2024 Psychosis, unspecified psychosis type 12/07/2023 Anxiety 12/07/2023 Paranoia 12/07/2023 Insomnia due to other mental disorder 12/07/2023 FAITH (obstructive sleep apnea) 03/24/2022 Overview (03/24/2022): 03/21/2022 [facility] (410.0 lbs) - AHI 84.9, RDI 86.6, Supine AHI 103.6, REM AHI 76.3, Low O2 62.0%, Time Spent <=88% 143.1 minutes / Time Spent <=89% 188.1 minutes. Hypertension 03/12/2009 Morbid obesity 03/12/2009 Resolved Problems Problem Noted Date Diagnosed Date Resolved Date Acute saddle pulmonary embol ism with acute cor pulmonale 02/19/2024 05/31/2024 CARDIOVASCULAR SCREENING; LD L GOAL LESS THAN 160 06/20/2010 04/11/2023 Encounters Date Type Department Care Team Description 10/03/2024 MyC Refill [address] [place] [phone] Valentin Muñoz MD Refill Request 10/02/2024 11:30 AM FISHER DIVING Office Visit [address] [place] [address] Valentin Muñoz MD Acute diarrhea (Primary Dx) 10/02/2024 Travel 10/02/[address] [place] [address] Valentin Muñoz MD Appointment 09/26/2024 MyC Medical Advice [facility] [address] [place] [phone] Armida Mills RN 09/26/2024 Telephone [facility] [place] [address] [place] [address] 4th [place] [phone] Unknown, Provider Appointment (/) 09/25/2024 1:40 PM FISHER DIVING Office Visit [address] [place] [address] Rebeca Holt MD Other fatigue (Primary Dx); Tongue lesion 09/25/2024 MyC Medical Advice [address] [place] [phone] Valentin Muñoz MD 09/25/2024 Travel 09/05/2024 MyC Refill [address] [place] [phone] Valentin Muñoz MD Refill Request 08/01/2024 2:30 PM FISHER DIVING Virtual Visit [facility] [address] [place] [phone] Roro Acevedo PA-C Factor V Leiden (Primary Dx); Chronic deep vein thrombosis (DVT) of femoral vein of left lower extremity (H); History of pulmonary embolism; Encounter for anticoagulation discussion and counseling 07/22/2024 4:14 PM FISHER DIVING - 07/22/2024 11:59 PM FISHER DIVING Hospital Encounter [facility] [address] [place] [phone] [facility] Roro Craft, CECI Acute deep vein thrombosis (DVT) of iliac vein of right lower extremity (H) Discharge Disposition: Home or Self Care 07/22/2024 Travel 07/17/2024 1:00 PM FISHER DIVING Documentation Only [facility] [address] [place] [address], [address] [place] [phone] Sleep Problem (STM) from Last 3 Months Immunizations Name Administration Dates Next Due COVID-19 12+ (Pfizer) 05/31/2024 COVID-19 MONOVALENT 12+ (Pfizer) 12/11/2020,0409/2020 COVID-19 Monovalent Booster 18+ (Moderna) 08/16/2021 Historical DTP/aP 04/12/1991, 9,02/12/1985,1984,1984 Influenza (IIV3) PF 05/30/2012 Influenza Vaccine >6 months,quad, PF 08/16/2021 Influenza Vaccine, 6+MO IM (QUADRIVALENT W/PRESERVATIVES) 08/16/2021,06/15/2020,05/13/2019,2017,05/29/2017,05/26/2015 Influenza, Split Virus, Triv alent, Pf (Fluzone\Fluarix) 05/31/2024 Influenza,INJ,MDCK,PF,Quad >6mo(Flucelvax) 06/15/2020 MMR 09/25/1996,10/22/1985 Poliovirus, inactivated [...] often do you attend chur ch or scientologist services? More than 4 times per year 04/04/2023 Do you belong to any clubs o r organizations such as episcopalian groups, unions, fraternal or athletic groups, or [...] Answer Date Recorded PHQ-2 Score 4 09/25/2024 [facility] [place] [facility] - Occupational Stress [...] slept in a correction (including now)? No 04/04/2023 Adolescent Education Answer [...] on file Legal Sex Male 5:04 AM FISHER DIVING Gender Identity Not on file Sexual Orientation Not on file Last Filed Vital Signs Vital Sign Reading Time Taken Comments Blood Pressure 127/89 10/02/2024 10:52 AM FISHER DIVING Pulse 113 10/02/2024 10:52 AM FISHER DIVING Temperature 36.7 C (98 F) 10/02/2024 10:52 AM FISHER DIVING Respiratory Rate 20 10/02/2024 10:5 2 AM FISHER DIVING Oxygen Saturation 96% 10/02/2024 10: 52 AM FISHER DIVING Inhaled Oxygen Concentration - - Weight 186.1 kg (410 lb 4.8 oz) 025 10:52 AM FISHER DIVING Height 189 cm (6' 2.41) 10/02/2024 10: 52 AM FISHER DIVING Body Mass Index 52.1 10/02/2024 10:52 AM FISHER DIVING Plan of Treatment Health Maintenance Due Date Last Done Comments ANNUAL REVIEW OF HM ORDERS 1984 DEPRESSION ACTION PLAN 1984 Pneumococcal Vaccine: Pediatrics (0 to 5 Years) and At-Risk Patients (6 to 49 Years) (1 of 2 - PCV) 2003 YEARLY PREVENTIVE VISIT 04/11/2024 04/11/20, 01/28/2022, 10/09/2020, Additional history exists PHQ-9 03/25/2025 09/25/2024, 05/21, 01/24/2024 BMP 09/25/2025 09/25/2024, 11/0 08/2023, 02/22/2024, Additional history exists ADVANCE CARE PLANNING 10/10/2025 10/10/2020 GLUCOSE 09/25/2027 09/25/2024, 11/0 08/2023, 06/03/2024, Additional history exists LIPID 01/29/2029 01/30/2024, 01/19, 03/19/2009 DTAP/TDAP/TD IMMUNIZATION (7 - Td or Tdap) 04/11/2033 04/11/2023, 06/06/2012, 05/21/2005, Additional history exists ZOSTER IMMUNIZATION (1 of 2) 2034 TSH W/FREE T4 REFLEX Discontinued 01/30/2024, 01/16/2023, 02/26/2009 HIV SCREENING Discontinued 05/21/2024 COVID-19 Vaccine Completed 05/31/2024, , 12/11/2020, Additional history exists INFLUENZA VACCINE Completed 05/31/2024, , 08/16/2021, Additional history exists HEPATITIS B IMMUNIZATION Discontinued HEPATITIS C SCREENING Discontinued HPV IMMUNIZATION Aged Out No longer e ligible based on patient's age to complete this topic MENINGITIS IMMUNIZATION Aged Out No l onger eligible based on patient's age to complete this topic Procedures Procedure Name Priority Date/Time Associated Diagnosis Comments CBC WITH PLATELETS & DIFFERENTIAL Routine 09/25/2024 2:05 PM FISHER DIVING Other fatigue HEMOGLOBIN A1C Add-On 09/25/2024 2:05 PM FISHER DIVING Other fatigue CBC WITH PLATELETS AND DIFFERENTIAL Routine 09/25/2024 2:05 PM FISHER DIVING Other fatigue COMPREHENSIVE METABOLIC PANEL Routine 09/25/2024 2:05 PM FISHER DIVING Other fatigue US LOWER EXTREMITY VENOUS DUPLEX RIGHT Routine 07/22/2024 4:54 PM FISHER DIVING Acute deep vein thrombosis (DVT) of iliac vein of right lower extremity (H) TSH WITH FREE T4 REFLEX Routine 01/30/2024 10:21 AM CDT Acute paranoid reaction (H) LIPID REFLEX TO DIRECT LDL PANEL Routine 01/30/2024 10:21 AM CDT Acute paranoid reaction (H) from Last 3 Months or Most Recently Relevant to Health Maintenance Results * (ABNORMAL) CBC with platelets and differential (09/25/2024 2:05 PM FISHER DIVING) WBC Count 6.9 4.0 - 11.0 10e3/uL 09/25/2024 2:08 PM FISHER DIVING [facility] RBC Count 6.29(H) 4.40 - 5.90 10e6/uL 09/25/2024 2:08 PM FISHER DIVING [facility] Hemoglobin 17.0 13.3 - 17.7 g/dL 09/25/2024 2:08 PM FISHER DIVING [facility] Hematocrit 49.3 40.0 - 53.0 % 09/25/2024 2:08 PM FISHER DIVING [facility] MCV 78 78 - 100 fL 09/25/2024 2:08 PM FISHER DIVING [facility] MCH 27.0 26.5 - 33.0 pg 09/25/2024 2:08 PM FISHER DIVING [facility] MCHC 34.5 31.5 - 36.5 g/dL 09/25/2024 2:08 PM FISHER DIVING [facility] RDW 14.4 10.0 - 15.0 % 09/25/2024 2:08 PM FISHER DIVING [facility] Platelet Count 339 150 - 450 10e3/uL 09/25/2024 2:08 PM FISHER DIVING [facility] % Neutrophils 55 % 09/25/2024 2:08 PM FISHER DIVING [facility] % Lymphocytes 31 % 09/25/2024 2:08 PM FISHER DIVING [facility] % Monocytes 11 % 09/25/2024 2:08 PM FISHER DIVING [facility] % Eosinophils 3 % 09/25/2024 2:08 PM FISHER DIVING [facility] % Basophils 0 % 09/25/2024 2:08 PM FISHER DIVING [facility] % Immature Granulocytes 1 % 09/25/2024 2:08 PM FISHER DIVING [facility] Absolute Neutrophils 3.8 1.6 - 8.3 10e3/uL 09/25/2024 2:08 PM FISHER DIVING [facility] Absolute Lymphocytes 2.2 0.8 - 5.3 10e3/uL 09/25/2024 2:08 PM FISHER DIVING [facility] Absolute Monocytes 0.7 0.0 - 1.3 10e3/uL 09/25/2024 2:08 PM FISHER DIVING [facility] Absolute Eosinophils 0.2 0.0 - 0.7 10e3/uL 09/25/2024 2:08 PM FISHER DIVING [facility] Absolute Basophils 0.0 0.0 - 0.2 10e3/uL 09/25/2024 2:08 PM FISHER DIVING [facility] Absolute Immature Granulocytes 0.0 <=0.4 10e3/uL 09/25/2024 2:08 PM FISHER DIVING [facility] Blood BLOOD SPECIMEN / Unknown Venipuncture / Unknown 09/25/2024 2:05 PM FISHER DIVING 09/25/2024 2:05 PM FISHER DIVING us Amy Gutiérrez MD LAB - BLOOD ORDERABLES Fin al Result [facility] [address] [place] [address] [place] [phone], [facility] * (ABNORMAL) Hemoglobin A1c (09/25/2024 2:05 PM FISHER DIVING) [facility] Estimated Average Glucose 134(H) <117 mg/dL 09/26/2024 10:17 AM FISHER DIVING [facility] Hemoglobin A1C 6.3(H) 0.0 - 5.6 % 09/26/2024 10:17 AM FISHER DIVING [facility] Comment: Normal <5.7% Prediabetes 5.7-6.4% Diabetes 6.5% or higher Note: Adopted from ADA consensus guidelines. Blood BLOOD SPECIMEN / Unknown Venipuncture / Unknown 09/25/2024 2:05 PM FISHER DIVING 09/25/2024 2:05 PM FISHER DIVING us Amy Gutiérrez MD LAB - BLOOD ORDERABLES Fin al Result Performing Organization Address [facility] [[email or web address]] Co de Phone Number LABORATORY [facility] [address] [place] [address] [place] [phone], [facility] * (ABNORMAL) Comprehensive metabolic panel (BMP + Alb, Alk Phos, ALT, AST, Total. Bili, TP) (09/25/2024 2:05 PM FISHER DIVING) [facility] Sodium 140 135 - 145 mmol/L 09/25/2024 9:49 PM FISHER DIVING [facility] Potassium 3.5 3.4 - 5.3 mmol/L 09/25/2024 9:49 PM FISHER DIVING [facility] Carbon Dioxide (CO2) 23 22 - 29 mmol/L 09/25/2024 9:49 PM FISHER DIVING [facility] Anion Gap 15 7 - 15 mmol/L 09/25/2024 9:49 PM FISHER DIVING [facility] Urea Nitrogen 15.4 6.0 - 20.0 mg/dL 09/25/2024 9:49 PM FISHER DIVING [facility] Creatinine 0.82 0.67 - 1.17 mg/dL 09/25/2024 9:49 PM FISHER DIVING [facility] GFR Estimate >90 >60 mL/min/1.7 3m2 09/25/2024 9:49 PM FISHER DIVING [facility] Comment:eGFR calculated usin g 2021 CKD-EPI equation. Calcium 9.7 8.8 - 10.4 mg/dL 09/25/2024 9:49 PM FISHER DIVING [facility] Chloride 102 98 - 107 mmol/L 09/25/2024 9:49 PM FISHER DIVING [facility] Glucose 136(H) 70 - 99 mg/dL 09/25/2024 9:49 PM FISHER DIVING [facility] Alkaline Phosphatase 81 40 - 150 U/L 09/25/2024 9:49 PM FISHER DIVING [facility] AST 24 0 - 45 U/L 09/25/2024 9:49 PM FISHER DIVING [facility] ALT 28 0 - 70 U/L 09/25/2024 9:49 PM FISHER DIVING [facility] Protein Total 6.9 6.4 - 8.3 g/dL 09/25/2024 9:49 PM FISHER DIVING [facility] Albumin 4.4 3.5 - 5.2 g/dL 09/25/2024 9:49 PM FISHER DIVING [facility] Bilirubin Total 0.4 <=1.2 mg/dL 09/25/2024 9:49 PM FISHER DIVING [facility] Blood BLOOD SPECIMEN / Unknown Venipuncture / Unknown 09/25/2024 2:05 PM FISHER DIVING 09/25/2024 2:05 PM FISHER DIVING us Amy Gutiérrez MD LAB - BLOOD ORDERABLES Fin al Result [facility] [address] [facility], [address] [phone] * US Lower Extremity Venous Duplex Right (07/22/2024 4:54 PM FISHER DIVING) Anatomical Region Laterality Modality Lower Extremity Ultrasound 07/22/2024 4:54 PM FISHER DIVING Impressions 07/22/2024 10:41 PM FISHER DIVING IMPRESSION: 1. Significant interval improvement as compared to the previous study from 04/01/2024. 2. Persistent nonocclusive peripheral remodeled chronic thrombus involving the right proximal to mid femoral vein as detailed above. Previously occlusive thrombus was present throughout the right femoral and popliteal veins. Narrative 07/22/2024 10:41 PM FISHER DIVING EXAM: US LOWER EXTREMITY VENOUS DUPLEX RIGHT LOCATION: [facility] DATE: 07/22/2024 INDICATION: HIstory of RLE DVT s p thrombectomy, assess for residual thrombus COMPARISON: 04/01/2024. TECHNIQUE: Venous Duplex ultrasound of the right lower extremity with and without compression, augmentation and duplex. Color flow and spectral Doppler with waveform analysis performed. FINDINGS: Exam includes the common femoral, femoral, popliteal, and contralateral common femoral veins as well as segmentally visualized deep calf veins and greater saphenous vein. RIGHT LOWER EXTREMITY: The right proximal to mid thigh femoral vein (deep vein) partially compressible containing nonocclusive endoluminal thrombus which limits the flow lumen approximately 30%. More distally the femoral, popliteal and segmentally visualized calf veins are patent, fully compressible and free of thrombus. No superficial thrombophlebitis. No popliteal cyst. Procedure Note Killian Rivera MD - 07/22/2024 EXAM: US LOWER EXTREMITY VENOUS DUPLEX RIGHT LOCATION: [facility] DATE: 07/22/2024 INDICATION: HIstory of RLE DVT s p thrombectomy, assess for residualthrombus COMPARISON: 04/01/2024. TECHNIQUE: Venous Duplex ultrasound of the right lower extremity with andwithout compression, augmentation and duplex. Color flow and spectralDoppler with waveform analysis performed. FINDINGS: Exam includes the common femoral, femoral, popliteal, andcontralateral common femoral veins as well as segmentally visualized deepcalf veins and greater saphenous vein. RIGHT LOWER EXTREMITY: The right proximal to mid thigh femoral vein (deep vein) partiallycompressible containing nonocclusive endoluminal thrombus which limits theflow lumen approximately 30%. More distally the femoral, popliteal andsegmentally visualized calf veins are patent, fully compressible and free of thrombus. No superficial thrombophlebitis. No popliteal cyst. IMPRESSION: 1. Significant interval improvement as compared to the previous studyfrom 04/01/2024. 2. Persistent nonocclusive peripheral remodeled chronic thrombusinvolving the right proximal to mid femoral vein as detailed above.Previously occlusive thrombus was present throughout the right femoral andpopliteal veins. us Roro D Bernhoft Bediako PA-C IMG US ORDERABLES F inal Result * TSH with free T4 reflex (01/30/2024 10:21 AM CDT) TSH 1.43 0.30 - 4.20 uIU/mL 01/30/2024 8:09 PM CDT [facility] Blood BLOOD SPECIMEN / Unknown Venipuncture / Unknown 01/30/2024 10:21 AM CDT 01/30/2024 10:21 AM CDT us Sarah Robles APRN MATHEMATICS IMPROVEMENT TEACHER LAB - BLOOD ORDERABLES Final Result [facility] [address] [facility], [address] [place] [address] * Lipid panel reflex to direct LDL [...] - 01/30/2024 8:09 PM CDT Cholesterol Desirable: <200 mg/dL Triglycerides Normal: Less than 150 mg/dL Borderline High: 150-199 mg/dL High: 200-499 mg/dL Very High: Greater than or equal to 500 mg/dL Direct Measure HDL Female: Greater than or equal to 50 mg/dL Male: Greater than or equal to 40 mg/dL LDL Cholesterol Desirable: <100mg/dL Above Desirable: 100-129 mg/dL Borderline High: 130-159 mg/dL High: 160-189 mg/dL Very High: >= 190 mg/dL Non HDL Cholesterol Desirable: 130 mg/dL Above Desirable: 130-159 mg/dL Borderline High: 160-189 mg/dL High: 190-219 mg/dL Very High: Greater than or equal to 220 mg/dL Sarah Robles APRN MATHEMATICS IMPROVEMENT TEACHER LAB - BLOOD ORDERABLES Final Result [facility] [address] [facility] [place] [address] from Last 3 Months or Most Recently Relevant to Health Maintenance Insurance [facility] Advance Directives For more information, please contact: [phone] * Full Code (Latest Code Status on File) Date Activated Date Inactivated Comments 02/19/2024 9:52 PM 02/23/2024 6:57 PM All basic and advanced life-sustaining interventions are performed as appropriate Question Answer Comments Code status determined by: Discussion with patie nt/ legal decision maker Care Teams Locker Room Clerk Relationship Specialty Start Date End Date Valentin Muñoz MD [address] [facility] [place] [address] PCP - General Internal Medicine 10/08/10 Valentin Muñoz MD [facility] [place] [address] Assigned PCP 10/03/16 Omero Pham MD [facility] [address] [place], [place] [address] Assigned Heart and Vascular Provider 04/12/24 Roro Acevedo PA-C [address] [place] [address] Assigned Cancer Care Provider 04/12/24 Josephine Krishnan PA-C [address] [facility] [address] [place] [address] Assigned Sleep Provider 07/13/24
--- OUTSIDE RECORDS SUMMARY | 2024-10-14 03:57 | XMS_ITS | Encounter Summary ---
Author Organization [place] Address [address] [place] [address] Care Team Providers Care Billet Recorder Name Role Phone Valentin Muñoz MD Primary Care Provider [phone] Valentin Muñoz MD Unavailable [phone] Josephine Krishnan PA-C Unavailable [phone] Omero Pham MD Unavailable + [phone] Roro Acevedo PA-C Unavailable + [phone] Josephine Krishnan PA-C Unavailable + [phone] Encounter Details Date Type Department Care Team [...] often do you attend chur ch or christian services? More than 4 times per year 01/28/2022 Do you belong to any clubs o r organizations such as catholic groups, unions, fraternal or athletic groups, [...] Date Recorded PHQ-2 Score 0 01/28/2022 [facility] [...] slept in a [facility] (including now)? No 01/28/2022 Sex and Gender Information Value Date Recorded Sex Assigned at Not on file Legal Sex Male 5:04 AM HEAD LIBRARIAN Gender Identity Not on file Sexual Orientation [...] Influenza 07/26/2022 07/26/2022 08/02/2022 11:3 9 PM HEAD LIBRARIAN documented as of this encounter Care Teams Billet Recorder Relationship Specialty Start Date End Date Valentin Muñoz MD [address] [place] [address] [place] [address] PCP - General Internal Medicine 10/08/10 Valentin Muñoz MD [address] [place] [address] [place] [address] Assigned PCP 10/03/16 Josephine Krishnan PA-C [address] [facility] [address] [place], [place] [address] Assigned Sleep Provider 01/29/22 Omero Pham MD [facility] [address] [facility] [address] [place], [place] [address] Assigned Heart and Vascular Provider 04/12/24 Roro Acevedo PA-C [address] [place], [place] [address] Assigned Cancer Care Provider 04/12/24 Josephine Krishnan PA-C [address] [place] [address] Assigned Sleep Provider 07/13/24 documented as of this encounter
--- OUTSIDE RECORDS SUMMARY | 2024-10-14 03:57 | XMS_ITS | Encounter Summary ---
Author Organization [facility] Address [address] [place] [address] Care Team Providers Care Race And Sports Book Writer Name Role Phone Valentin Muñoz MD Primary Care Provider [phone] Valentin Muñoz MD Unavailable [phone] Josephine Krishnan PA-C Unavailable [phone] Omero Pham MD Unavailable + [phone] Roro AcevedoC Unavailable + [phone] Josephine Krishnan PA-C Unavailable + [phone] Encounter Details Date Type Department Care Team (Late st Contact Info) Description 05/17/2022 MyC Medical Advice [facility] [address] [address] Yeimi Conway, SHEETROCK APPLICATOR Social History Tobacco Use Types Packs/Day Years [...] Answer Date Recorded PHQ-2 Score 0 05/03/2022 [facility] - Occupational Stress Questionnaire Answer Date [...] slept in a [facility] (including now)? No 01/28/2022 Sex and Gender Information Value Date Recorded Sex Assigned at Not on file Legal Sex Male 5:04 AM BAG MACHINE SET UP OPERATOR Gender Identity Not on file Sexual Orientation Not on file documented as of this encounter Plan of Treatment Not on file documented as of this encounter Visit Diagnoses Not on filedocumented in this encounter Additional Health Concerns Infection Onset Date Last Indicated Resolved Time Influenza 07/26/2022 07/26/2022 08/02/2022 11:3 9 PM BAG MACHINE SET UP OPERATOR documented as of this encounter Care Teams Race And Sports Book Writer Relationship Specialty Start Date End Date Valentin Muñoz MD [address] [facility] [place] [address] PCP - General Internal Medicine 10/08/10 Valentin Muñoz MD [address] [facility] [place] [address] Assigned PCP 10/03/16 Josephine Krishnan PA-C [address] [facility] [address] [place], [place] [address] Assigned Sleep Provider 01/29/22 Omero Pham MD [facility] [address] [place], [place] [address] Assigned Heart and Vascular Provider 04/12/24 Roro Acevedo PA-C [address] [place], [place] [address] Assigned Cancer Care Provider 04/12/24 Josephine Krishnan PA-C [address] [place] [address] [place] [address] Assigned Sleep Provider 07/13/24 documented as of this encounter
--- OUTSIDE RECORDS SUMMARY | 2024-10-14 03:57 | XMS_ITS | Encounter Summary ---
Author Organization [facility] Address [address] [place] [address] Care Team Providers Care Instrument Engineer Name Role Phone Valentin Muñoz MD Primary Care Provider [phone] Valentin Muñoz MD Unavailable [phone] Omero Pham MD Unavailable + [phone] Roro Acevedo PA-C Unavailable + [phone] Josephine Krishnan-C Unavailable [phone] Reason for Visit * Reason Onset Date Comments Appointment 10/02/2024 Encounter Details Date Type Department Care Team (Late st Contact Info) Description 10/02/2024 Telephone [facility] Janelle [address] [place] [address] Drive [address] [place] [address] Valentin Muñoz MD [address] [place] [address] [place] [address] Appointment Social History Tobacco Use Types Packs/Day [...] any clubs o r organizations such as latter day groups, unions, fraternal or athletic groups, or [...] Answer Date Recorded PHQ-2 Score 4 09/25/2024 [facility] - Occupational Stress [...] on file Legal Sex Male 5:04 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 Gender Identity Not on file Sexual Orientation Not on file documented as of this encounter Miscellaneous Notes * Telephone Encounter - Gege Santana - 10/02/2024 7:33 AM CST Reason for Call: Appointment Request Patient requesting this type of appt: upset stomach nausea Requested provider: Valentin Muñoz Reason patient unable to be scheduled: Not with their preferred provider When does patient want to be seen/preferred time: Same day Comments: patient wondering if he could be worked in today virtually or in person Could we send this information to you in [place] or would you prefer to receive a phone call?: Patient would prefer a phone call Okay to leave a detailed message?: Yes at Home number on file [phone] (home) Call taken on 10/02/2024 at 7:33 AM by Gege Santana D BANK ORDER 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 documented in this encounter Plan of Treatment Not on file documented as of this encounter Visit Diagnoses Not on filedocumented in this encounter Additional Health Concerns Assessment Noted Time PHQ-9 Depression Total Score: 14 025 12:28 PM BLOOD BANK ORDER 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 documented as of this encounter Care Teams Instrument Engineer Relationship Specialty Start Date End Date Valentin Muñoz MD [facility] [place] [address] PCP - General Internal Medicine 10/08/10 Valentin Muñoz MD [address] [place] [address] [place] [address] Assigned PCP 10/03/16 Omero Pham MD [facility] [address] [place] [address] Assigned Heart and Vascular Provider 04/12/24 Roro Acevedo PA-C [address] [place] [address] Assigned Cancer Care Provider 04/12/24 Josephine Krishnan PA-C [address] [facility] [address] [place] [address] Assigned Sleep Provider 07/13/24 documented as of this encounter
--- OUTSIDE RECORDS SUMMARY | 2024-10-14 03:57 | XMS_ITS | Encounter Summary ---
Author Organization [facility] Address [address] [place] [address] Care Team Providers Care Lens Molding Equipment Operator Name Role Phone Valentin Muñoz MD Primary Care Provider [phone] Valentin Muñoz MD Unavailable [phone] Omero Pham MD Unavailable + [phone] Roro Acevedo PA-C Unavailable [phone] Josephine Krishnan-C Unavailable + [phone] Reason for Visit * Reason Onset Date Comments Refill Request 10/03/2024 Encounter Details Date Type Department Care Team (Late st Contact Info) Description 10/03/2024 [facility] Janelle [address] [place] [address] [address] [place] [address] Valentin Muñoz MD [address] [place] [address] [place] [address] Refill Request Social History [...] often do you attend chur ch or anglican services? 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 Gender Identity Not on file Sexual Orientation Not on file documented as of this encounter Plan of Treatment Not on file documented as of this encounter Visit Diagnoses Diagnosis Hypertension Unspecified essential hypertension documented in this encounter Additional Health Concerns Assessment Noted Time PHQ-9 Depression Total Score: 14 025 12:28 PM ASSISTANT NEWS DIRECTOR documented as of this encounter Care Teams Lens Molding Equipment Operator Relationship Specialty Start Date End Date Valentin Muñoz MD [address] [place] [address] [place] [address] PCP - General Internal Medicine 10/08/10 Valentin Muñoz MD [address] [place] [address] [place] [address] Assigned PCP 10/03/16 Omero Pham MD [facility] [address] [facility] [address] [place] [address] Assigned Heart and Vascular Provider 04/12/24 Roro Acevedo PA-C [address] [place] [address] Assigned Cancer Care Provider 04/12/24 Josephine Krishnan PA-C [address] [address] Assigned Sleep Provider 07/13/24 documented as of this encounter
[2024-10-14 03:59] VITALS: BP 135/105; PULSE 110; RESP 18; TEMP 36.8; O2SAT 95; BMI 54.2
--- NOTE | 2024-10-14 04:07 | ED_ITS ---
HPI - SOB/Dyspnea General Time Seen by Provider: 04:07 Date Seen: 10/14/24 Chief Complaint: Shortness of Breath/Dyspnea Stated Complaint: right side chest pain Time Seen by Provider: 10/14/24 04:17 Source: patient and family Mode of arrival: ambulatory Limitations: no limitations History of Present Illness HPI Narrative: 39-year-old male who presents today with cough. Patient has had the cough for about a week, nonproductive. Denies runny nose, sore throat. No fevers or chills. He notes some pain in the sides when he coughs, but now also some pain in the anterior chest on the left when he coughs. Pain is not present when he is not coughing. Cough does not seem to be worse at night. Denies runny nose, leg swelling, abdominal pain, nausea, vomiting. Related Data Home Medications ?Medication ?Instructions ?Recorded ?Confirmed trazodone 100 mg tablet 100 mg PO DAILY 03/09/24 10/07/24 lamotrigine 100 mg tablet mg PO DAILY 10/07/24 10/07/24 lisinopril 20 tab PO 10/07/24 10/07/24 mg-hydrochlorothiazide 25 mg tablet Previous Rx's ?Medication ?Instructions ?Recorded albuterol sulfate 90 mcg/actuation 2 puff inhalation Q4-6H PRN 10/07/24 aerosol inhaler shortness of breath or wheezing #1 packet azithromycin 250 mg tablet See Rx Instructions PO .COMPLEX #6 10/07/24 (Zithromax Z-Greyson) tabs benzonatate 200 mg capsule 200 mg PO TID PRN cough #30 caps 10/07/24 Allergies Allergy/AdvReac Type Severity Reaction Status Date / Time cephalexin Allergy Mild rash Verified 10/07/24 10:29 [facility] Medical History (Updated 10/14/24 @ 06:13 by Omero Kirk MD) Morbid obesity ?E66.01 - Morbid (severe) obesity due to excess calories (ICD-10) Pre-diabetes ?R73.03 - Prediabetes (ICD-10) Bronchitis ?J40 - Bronchitis, not specified as acute or chronic (ICD-10) Wheezing ?R06.2 - Wheezing (ICD-10) Social History Smoking Status: Never smoker How often do you have a drink containing alcohol: never How often do you have six or more drinks on one occasion: Never AUDIT-C Alcohol total score: 0 Non-prescribed substance use: denies use Exam Narrative: Exam Narrative: General: Well-developed and well-nourished, no acute distress Head: Atraumatic and normocephalic Eyes: Pupils are equal reactive, extraocular motions intact, conjunctiva clear ENT: External nose and ears are normal, posterior pharynx without erythema or exudate Neck: No midline cervical tenderness, full spontaneous range of motion the neck, trachea midline, no adenopathy Heart: Tachycardic but regular Lungs: Bilateral expiratory wheezes, trace inspiratory wheezes Abdomen: Soft, nontender, nondistended with active bowel sounds Musculoskeletal: No tenderness, deformity, or edema Neurologic: Awake, alert, and oriented x3, no gross focal neurologic deficits, cranial nerves intact as tested Psych: Mood and affect are appropriate Skin: No rashes Const: Vital Signs, click to edit/add: Vital Signs - 24 hr 10/14/24 03:59 10/14/24 05:14 Temperature 98.3 F Pulse Rate 111 H Pulse Rate [Left P ulse Oximeter] 110 H Respiratory Rate 18 19 Blood Pressure [Ri ght Upper Arm] 135/105 H Pulse Oximetry 95 94 Oxygen Delivery Me thod Room Air Course Course ED Course: Reviewed most recent urgent care visit from October 07 when patient was seen with cough, diagnosed with bronchitis. Started on Z-Greyson, prednisone, albuterol. With patient presents today with persistent cough, also some left lower chest pain when he coughs. Denies fever, chills, vomiting, diarrhea, leg swelling. On exam here, patient tachycardic but otherwise vital is stable. Occasional cough. Inspiratory and expiratory wheezes on lung exam, diffuse and bilateral. Left anterior lower chest wall tenderness consistent with costochondritis. Labs ordered along with chest x-ray to evaluate for other causes cough and wheeze including cardiogenic wheezing. Patient also tachycardic, problem list does show sinus tachycardia in the past but PE considered, D-dimer will be ordered and proceed to CT PE study if needed. Reevaluation(s) Time of Reevaluation #1: 04:42 Reevaluation #1: Chest x-ray independently interpreted by me with elevated right hemidiaphragm, no other acute findings. EKG and bili interpreted by me performed at 4:28 a.m. demonstrates sinus tachycardia rate 103, no acute ST elevations or depressions, normal intervals, n ormal axis, KY 154, QTC 468 Time of Reevaluation #2: 05:14 Reevaluation #2: Labs in the panel interpreted by me with normal CBC, normal basic panel other than mild hyperglycemia, negative BNP, negative respiratory panel cheek. Time of Reevaluation #3: 06:10 Reevaluation #3: CT scan of the chest independently interpreted by me with no central pulmonary embolism, radiology interpretation agrees with current also passed in the right upper low. Patient will be started on Augmentin and doxycycline, prednisone burst, and continue albuterol inhaler. Vital Signs Vital signs: Initial Vital Signs Temperature 98.3 F 10/14/24 03:59 Temperature Source Oral 10/14/24 03:59 Pulse Rate 110 H 10/14/24 03:59 Pulse Rhythm Regular 10/14/24 03:59 Respiratory Rate 18 10/14/24 03:59 Blood Pressure 135/105 H 10/14/24 03:59 Blood Pressure Mean 115 H 10/14/24 03:59 Blood Pressure Position Sitting 10/14/24 03:59 Pulse Oximetry 95 10/14/24 03:59 Oxygen Delivery Method Room Air 10/14/24 03:59 Vital Signs Temperature 98.3 F 10/14/24 03:59 Pulse Rate 110 H 10/14/24 03:59 Respiratory Rate 18 10/14/24 03:59 Blood Pressure 135/105 H 10/14/24 03:59 Pulse Oximetry 95 10/14/24 03:59 Oxygen Delivery Method Room Air 10/14/24 03:59 Temperature 98.3 F 10/14/24 03:59 Pulse Rate 111 H 10/14/24 05:14 Respiratory Rate 19 10/14/24 05:14 Blood Pressure 135/105 H 10/14/24 03:59 Pulse Oximetry 94 10/14/24 05:14 Oxygen Delivery Method Room Air 10/14/24 03:59 Medications Administered Medications: Discontinued Medications Generic Name Dose Route Start Last Admin Trade Name Freq PRN Reason Stop Dose Admin Albuterol/Ipratropium 1 neb 10/14/24 04:16 10/14/24 04:39 Iprat-Albut 0.5-2.5 Mg/3 Ml Neb IH 10/14/24 04:17 1 neb ONCE ONE Administration Ketorolac Tromethamine 15 mg 10/14/24 05:15 10/14/24 05:30 Ketorolac 15 Mg/Ml Inj IVP 10/14/24 05:16 15 mg ONCE ONE Administration MDM - SOB/Dyspnea Lab Data Labs: Lab Results 10/14/24 10/14/24 Range/Units 04:04 04:29 WBC 7.32 (4.50-11.00) K/uL RBC 6.12 H (4.30-5.90) m/uL Hgb 16.4 (13.5-17.5) gm/dL Hct 48.8 (37.0-53.0) % MCV 80 (80-100) fL MCH 27 (26-34) pg MCHC 34 (32-36) gm/dL RDW Coeff of Audrey 13.8 (11.5-15.5) % Plt Count 289 (140-440) K/uL Neut % (Auto) 56.8 (42.0-72.0) % Lymph % (Auto) 31.1 (20-44) % Gove % (Auto) 6.6 (0.0-11.0) % Eos % (Auto) 4.2 (0.0-7.0) % Baso % (Auto) 0.5 (0.0-3.0) % Neut # (Auto) 4.15 (1.7-7.0) K/uL Lymph # (Auto) 2.28 (0.90-2.90) K/uL Gove # (Auto) 0.50 (0.00-0.90) K/UL Eos # (Auto) 0.31 (0.00-0.50) K/uL Baso # (Auto) 0.04 (0.00-0.30) K/uL Abs Immat Gran (auto) 0.06 (0.00-0.30) K/uL Imm/Tot Granulo (auto) 0.8 % D-Dimer Quant (PE/DVT) 1.01 H (0.00-0.50) ug/ml Sodium 137 (135-149) mmol/L Potassium 3.3 L (3.6-5.1) mmol/L Chloride 101 (96-114) mmol/L Carbon Dioxide 24 (20-32) mmol/L Anion Gap 12 (7-15) mEq/L BUN 14 (5-24) mg/dL Creatinine 0.7 (0.5-1.5) mg/dL Estimated Creat Clear 153.97 Estimated GFR 119 ml/min Glucose 207 H (60-115) mg/dL Calcium 9.1 (8.4-10.6) mg/dL NT-Pro-B Natriuret Pep < 20 pg/mL SARS-CoV-2 (PCR) Negative SARS-CoV-2 (Negative) Influenza Type A (PCR) Negative PCR FLU A (Negative) Influenza Type B (PCR) Negative PCR FLU B (Negative) RSV (PCR) Negative PCR RSV (Negative) Discharge Plan Discharge Clinical Impression: Community acquired pneumonia Patient Disposition: Home, Self-Care Condition: Stable Instructions: Community Acquired Pneumonia (DC) Additional Instructions: Take antibiotics as well as steroid burst and taper as prescribed Albuterol inhaler 2 puffs every 2 hours while awake for 24 hours, then 2 puffs every 3 hours while awake for 24 hours, then 2 puffs every 4 hours as needed Activity Level: No Restrictions Discharge Diet: Regular Prescriptions: No Action lamotrigine 100 mg tablet PO DAILY lisinopril-hydrochlorothiazide 20-25 mg tablet PO Patient Comments: [NO ORIGINAL SIG] albuterol sulfate 90 mcg/actuation HFA aerosol inhaler 2 puff inhalation Q4-6H PRN (Reason: shortness of breath or wheezing) Qty: 1 0RF azithromycin [Zithromax Z-Greyson] 250 mg tablet See Rx Instructions PO .COMPLEX Qty: 6 0RF Rx Instructions: For 250 mg dose pack: take 500 mg today (day 1), then 250 mg for 4 days (days 2-5) PO benzonatate 200 mg capsule 200 mg PO TID PRN (Reason: cough) Qty: 30 2RF trazodone 100 mg tablet 100 mg PO DAILY Follow Up/Referrals: Provider,Not a Local [Primary Care Provider] - Stand Alone Forms: [facility] Inst[facility]
--- NOTE | 2024-10-14 04:16 | CRLHL7_ITS ---
For Patients: As a result of the Century Cures Act, medical imaging exams and procedure reports are released immediately into your electronic medical record. You may view this report before your referring provider. If you have questions, please contact your health care provider. INDICATION: Cough for about a week COMPARISON: None TECHNIQUE: PA and lateral views of the chest were acquired FINDINGS: TUBES AND LINES: None. HEART AND MEDIASTINUM: The heart size is normal. The mediastinal contour appears normal for patient age. LUNGS AND PLEURAL SPACES: Left lung and left pleural space appear normal. Elevated right hemidiaphragm with minimal crowding of the bronchovascular markings at the right lung base probably atelectasis.The most common cause this pattern of diaphragmatic elevation is diaphragmatic eventration. OSSEOUS STRUCTURES: Age-appropriate appearance. No acute focal finding. IMPRESSION: Right basilar opacity probably atelectasis associated with an elevated right hemidiaphragm. The diaphragmatic elevation is statistically most likely due to diaphragmatic eventration. Dictated by Herbert Hunt MD @ 10/14/2024 4:47:16 AM (Electronically Signed)
[2024-10-14] MEDS: IPRAT-ALBUT 0.5-2.5 MG/3 ML NEB 1 NEB IH (04:39)
--- OUTSIDE RECORDS SUMMARY | 2024-10-14 04:39 | XMS_ITS | Clinical Summary ---
Author Organization [facility] Address [address] [place] [address] Care Team Providers Care Outside Production Inspector Name Role Phone Unknown, Md Primary Care [...] - 145 mmol/L 05/23/2024 3:46 PM CDT [facility] Potassium 4.4 3.4 - 5.1 mmol/L 05/23/2024 3:46 PM [facility] Comment:Interpret with cauti on, specimen slightly hemolyzed. Results may be affected Chloride 110(H) 98 - 108 mmol/L 05/23/2024 3:46 PM T [facility] Carbon Dioxide 23 20 - 31 mmol/L 05/23/2024 3:46 PM T [facility] BUN (Urea Nitro) 15 9 - 23 mg/dL 05/23/2024 3:46 PM T [facility] Creatinine 0.96 0.73 - 1.18 mg/dL 05/23/2024 3:46 PM [facility] Est GFR (CKD-EPI) >60.00 >60.00 mL/min/1. 73m2 05/23/2024 3:46 PM [facility] Comment:Calculation based on the Chronic Kidney Disease Epidemiology Collaboration (CKD-EPI) equation refit without adjustment for race. Glucose 71(L) 74 - 106 mg/dL 05/23/2024 3:46 PM [facility] Calcium, Serum 10.3 8.7 - 10.4 mg/dL 05/23/2024 3:46 PM [facility] Anion Gap 8.0 0.0 - 15.0 mmol/L 05/23/2024 3:46 PM [facility] Magnesium 2.3 1.6 - 2.6 mg/dL 05/23/2024 3:46 PM [facility] Blood Venipuncture / Unknown 05/23/2024 3:02 PM CDT 05/23/2024 3:08 PM CDT us Lucretia Quinones PA-C CHEMISTRY ORDERABLE Final Result [facility] [address] [place] [address] * (ABNORMAL) Lipid Profile [place] (05/15/2024 5:47 AM CDT) Specimen Type Fasting 05/15/2024 7:24 AM T [facility] Cholesterol 110 <200 mg/dL 05/15/2024 7:24 AM [facility] Triglycerides 86 <150 mg/dL 05/15/2024 7:24 AM T [facility] LDL Chol, Calc 56 <100 mg/dL 05/15/2024 7:24 AM [facility] HDL Cholesterol 37(L) >40 mg/dL 7:24 AM [facility] Chol/HDL Ratio 3.0 0.0 - 4.9 05/15/2024 7:24 AM [facility] Blood 05/15/2024 5:47 AM CDT 05/15/2024 6:22 AM CDT [facility] - 05/15/2024 7:24 AM T LDL CHOLESTEROL REFERENCE RANGES: (FOR PATIENTS W/O HEART DISEASE) <100 mg/dL = Optimal 100-129 mg/dL = Near/Above Optimal 130-159 mg/dL = Borderline High 160-189 mg/dL = High >/= 190 mg/dL = Very High Ronny Bolivar MD CHEMISTRY ORDERABLE Final Re sult [facility] [address] [facility] [place] [address] from Last 3 Months or Most Recently Relevant to Health Maintenance Insurance [facility] ([facility] [place] [address] Advance Directives For more information, please contact: [phone] * Full Code (Latest Code Status on File) Date Activated Date Inactivated Comments 05/13/2024 1:58 PM 05/28/2024 6:54 PM Question Answer Comments How was code status determined? Patient Care Teams Outside Production Inspector Relationship Specialty Start Date End Date Unknown, NO ADDRESS/PHONE/FAX AFFILIATED PCP - General 05/12/24
--- OUTSIDE RECORDS SUMMARY | 2024-10-14 04:39 | XMS_ITS | Clinical Summary ---
Author Organization [facility] [employer] [facility] Address [address] [place] [address] Care Team Providers Care Jumpbasting Lining Baster Name Role Phone Valentin Muñoz MD Primary Care Provider [phone] Allergies Active Allergy Reactions Criticality Noted Date Comments Cephalexin Rash Low 02/26/2009 Medications lisinopril-hydro chlorothiazide, 20-25 mg, (PRINZIDE, ZESTORETIC) 20-25 mg per tablet Take 2 Tablets by mouth once daily. 02/27/2023 Active amLODIPine (NORVASC) 10 mg tablet Take 10 mg by mouth once daily. 02/23/2023 Active traZODone (DESYREL) 100 mg tabletIndication s:Moderate episode of recurrent major depressive disorder (HC) Take 1 Tablet (100 mg) by mouth at bedtime if needed, may repeat once for Sleep. 60 Tablet 02/06/2024 12:34 PM CDT 02/06/2024 Active potassium chloride (KLOR-CON M10) 10 mEq extended-release tablet (part/cryst)Chanda cations:Hypokale natalie Take 1 Tablet (10 mEq) by mouth once daily with a meal. 30 Tablet 02/06/2024 12:34 PM CDT 02/06/2024 Active hydrOXYzine pamoate (VISTARIL) 50 mg capsuleIndicatio ns:Anxiety Take 1 Capsule (50 mg) by mouth 3 times daily if needed for Anxiety. 90 Capsule 02/06/2024 12:34 PM CDT 02/06/2024 Active LORazepam (ATIVAN) 1 mg tabletIndication s:Anxiety Take 1 Tablet (1 mg) by mouth at bedtime if needed for Anxiety. 30 Tablet 02/06/2024 12:34 PM CDT 02/06/2024 Active rivaroxaban (Xarelto) 15 mg tab tabletIndication s:deep vein thrombosis prevention,deep venous thrombosis Take 15 mg by mouth two times daily. 02/22/2024 Active FLUoxetine (PROZAC) 40 mg capsuleIndicatio ns:Current severe episode of major depressive disorder without psychotic features, unspecified whether recurrent (HC) Take 1 Capsule (40 mg) by mouth once daily. Take along with 20mg capsule 30 Capsule 03/06/2024 Active risperiDONE (RISPERDAL) 1 mg tabletIndication s:Current severe episode of major depressive disorder without psychotic features, unspecified whether recurrent (HC) Take 1 Tablet (1 mg) by mouth at bedtime. 30 Tablet 03/08/2024 Active gabapentin (NEURONTIN) 600 mg tabletIndication s:Anxiety disorder, unspecified type Take 2 Tablets (1,200 mg) by mouth at bedtime. 60 Tablet 03/08/2024 Active FLUoxetine (PROZAC) 20 mg capsuleIndicatio ns:Current severe episode of major depressive disorder without [...] obesity 02/02/2024 FAITH (obstructive sleep apnea) 02/02/2024 Social History Tobacco Use Types Packs/Day Years Used Date Smoking Tobacco: Never Smokeless Tobacco: Never Tobacco Cessation:Counseling Given: Not Answered Alcohol Use Standard Drinks/Week Comments Not Currently 0 (1 standard drink = 0.6 oz pur e alcohol) PHQ-2 Answer Date Recorded PHQ-2 TOTAL SCORE 1 03/26/2024 Social Connections Answer Date Recorded Do you often feel lonely or isolated from those around you? 0 02/02/2024 Alcohol Use Answer Date Recorded [...] file 02/02/2024 Food Insecurity Answer Date Recorded Do you worry your food will run out before you are able to buy more? 1 02/02/2024 Transportation Needs Answer Date Record ed Does lack of transportation keep you from medica l appointments? 1 02/02/2024 Does lack of transportation keep you from work, meetings or getting things that you need? 1 02/02/2024 Housing Stability Answer Date Recorded What is your housing situation today? 1 02/02/2024 Interpersonal Safety Answer Date Record ed Are you being hit, kicked, p ushed or yelled at (see row info)? No 03/07/2024 Interpersonal Safety Abuse 12 - 18 Not on file 03/07/2024 Interpersonal Safety Ambulatory Vulnerability No t on file 03/07/2024 Utilities Answer Date Recorded Do you have trouble paying f or utilities (for example, heat, electricity, water, phone)? 1 02/02/2024 Sex and Gender Information Value Date Recorded Sex Assigned at Not on file Legal Sex Male 3:55 PM CDT Gender Identity Not on file Sexual Orientation Not on file Obstetrics History Last Filed Vital Signs Vital Sign Reading Time Taken Comments Blood Pressure 137/85 03/14/2024 3:19 PM CDT Pulse 85 03/14/2024 3:19 PM CDT Temperature 36.2 C (97.2 F) 03/14/2024 3:19 PM CDT Respiratory Rate 18 03/14/2024 3:19 PM CDT [...] exists Lipids for age 35-44 02/02/2029 02/03/2024 COVID-19 vaccine series Completed 05/31/20 24, 08/16/2021, 12/11/2020, Additional history exists Pneumococcal series for age 6-49 Aged Out No longer eligible based on patient's age to complete this topic Procedures Procedure Name Priority Date/Time Associated Diagnosis Comments LIPID PANEL Early AM 02/03/2024 8:49 AM CDT from Last 3 Months or Most Recently Relevant to Health Maintenance Results * (ABNORMAL) Lipid Panel (02/03/2024 8:49 AM CDT) CHOLESTEROL,TOTAL 108 100 - 199 mg/dL 02/03/2024 9:50 AM CDT [facility] Comment: Cholesterol, Total Reference Ranges Desirable <200 mg/dL Borderline 200-239 mg/dL High >=240 mg/dL TRIGLYCERIDES 108 <150 mg/dL 02/03/2024 9:50 AM CDT [facility] HDL CHOLESTEROL 40(L) >40 mg/dL 9:50 AM CDT [facility] NON-HDL CHOLESTEROL 68 <145 mg/dl 02/03/2024 9:50 AM CDT [facility] CHOL/HDL RATIO 2.70 <4.50 02/03/2024 9:50 AM CDT [facility] LDL CHOLESTEROL 46 <=130 mg/dL 02/03/2024 9:50 AM CDT [facility] VLDL CHOLESTEROL 22 <=30 mg/dL 02/03/2024 9:50 AM CDT [facility] PROVIDER ORDERED STATUS RANDOM 02/03/2024 9:50 AM CDT [facility] Blood BLOOD SPECIMEN / Unknown Venipuncture / Unknown 02/03/2024 8:49 AM CDT 02/03/2024 9:11 AM CDT us Didier Summers Labreche BURRER MACHINE CHEMISTRY Final Re sult [facility] [address] [place] [address], [place] from Last 3 Months or Most Recently Relevant to Health Maintenance Insurance [facility] PLANS HB ONLY Advance Directives * Full Code (Latest Code Status on File) Date Activated Date Inactivated Comments 02/02/2024 11:35 AM 02/06/2024 7:40 PM Question Answer Comments Code Status Discussion: Reviewed Preferences Care Teams Jumpbasting Lining Baster Relationship Specialty Start Date End Date Valentin Muñoz MD [address] [facility] [place] [address] PCP - General Internal Medicine 02/27/24
--- OUTSIDE RECORDS SUMMARY | 2024-10-14 04:40 | XMS_ITS | Encounter Summary ---
Author Organization [facility] Address [address] [place] [address] Care Team Providers Care Human Resource Internship Name Role Phone Valentin Muñoz MD Primary Care Provider [phone] Valentin Muñoz MD Unavailable [phone] DecesaOmero west MD Unavailable + [phone] Roro Acevedo PA-C Unavailable + [phone] Josephine Krishnan PA-C Unavailable [phone] Reason for Referral * Consultation (Routine: Next available opening) - Pending Review Specialty Diagnoses / Procedures Referred By Jazzy arndt Referred To Contact Otolaryngology Diagnoses Tongue lesion Amy Gutiérrez MD [address] [facility] [place] [address] Phone: tel: fax: Referral ID Status Reason Start Date Expiration Date V isits Requested Visits Authorized [id number] Pending Review 09/25/2024 09/25/2025 1 1 Question Answer Reason for Referral: Head and Neck Reason for Referral: Mass Scheduling Instructions: [facility] will call you to coordinate your care as prescribed by the provider. If you don t hear from a motor vehicle field representative within 2 business days, please call [phone]. Additional Information: Tongue lesion, photo in media tab Comments Please be aware that coverage of these services is subject to the terms and limitations of your health insurance plan. Call member services at your health plan with any benefit or coverage questions. [facility] will call you to coordinate your care as prescribed by the provider. If you don t hear from a motor vehicle field representative within 2 business days, please call [phone]. NEERING SCIENTIST Reason for Visit * Reason Comments Fatigue Encounter Details Date Type Department Care Team (Late st Contact Info) Description 09/25/2024 1:40 PM ENGINEERING SCIENTIST Office Visit [address] [place] [address] Rebeca Holt MD [address] [place] [address] Other fatigue (Primary Dx); Tongue lesion [...] How often do you attend chur or hinduism services? More than 4 times per year 04/04/2023 Do you belong to any clubs o r organizations such as sikhism groups, unions, fraternal or athletic groups, or [...] Answer Date Recorded PHQ-2 Score 4 09/25/2024 [facility] - Occupational Stress Questionnaire Answer Date [...] on file Legal Sex Male 5:04 AM ENGINEERING SCIENTIST Gender Identity Not on file Sexual Orientation Not on file documented as of this encounter Last Filed Vital Signs Vital Sign Reading Time Taken Comments Blood Pressure 124/83 09/25/2024 12:55 PM ENGINEERING SCIENTIST Pulse 110 09/25/2024 12:55 PM ENGINEERING SCIENTIST Temperature 36.7 C (98.1 F) 09/25/2024 12:55 PM ENGINEERING SCIENTIST Respiratory Rate - - Oxygen Saturation 96% 09/25/2024 12:55 PM ENGINEERING SCIENTIST Inhaled Oxygen Concentration - - Weight 189.1 kg (417 lb) 09/25/2024 12:55 PM ENGINEERING SCIENTIST Height 182.9 cm (6') 09/25/2024 12:55 PM ENGINEERING SCIENTIST Body Mass Index 56.56 09/25/2024 12:55 PM ENGINEERING SCIENTIST documented in this encounter Patient Instructions * Patient Instructions* Rebeca Holt MD - 09/25/2024 1:40 PM ENGINEERING SCIENTIST Please follow up with your PCP or another provider in clinic in 1-2 weeks if your symptoms are not improving. We will be in touch regarding your labs results. So nice to meet you! Rebeca Holt MD NEERING SCIENTIST documented in this encounter Progress Notes * [...] changing or becoming painful. - Adult ENT Label Sewer Referral; Future The longitudinal plan of care [...] Follows regularly with his psychiatry team at [facility]. Objective BP 124/83 Pulse 110 Temp 98.1 [...] Amy Gutiérrez MD at 09/27/2024 1:39 PM ENGINEERING SCIENTIST NEERING SCIENTIST Associated attestation - Amy Gutiérrez MD - 09/27/2024 1:39 PM ENGINEERING SCIENTIST Physician Attestation I saw and evaluated Ant Beckford as part of a shared STAFF REGISTERED NURSE/PA visit. I personally reviewed the vital signs [...] Associated Diagnoses Orde r Schedule Adult ENT Label Sewer Referral Referral Routine: Next available opening Tongue lesion Expected: 09/25/2024 (Approximate), Expires: 09/25/2025 documented as of this encounter Procedures Procedure Name Priority Date/Time Associated Diagnosis Comments CBC WITH PLATELETS AND DIFFERENTIAL Routine 09/25/2024 2:05 PM ENGINEERING SCIENTIST Other fatigue CBC WITH PLATELETS & DIFFERENTIAL Routine 09/25/2024 2:05 PM ENGINEERING SCIENTIST Other fatigue HEMOGLOBIN A1C Add-On 09/25/2024 2:05 PM ENGINEERING SCIENTIST Other fatigue COMPREHENSIVE METABOLIC PANEL Routine 09/25/2024 2:05 PM ENGINEERING SCIENTIST Other fatigue documented in this encounter Results * (ABNORMAL) Hemoglobin A1c (09/25/2024 2:05 PM ENGINEERING SCIENTIST) Estimated Average Glucose 134(H) <117 mg/dL 09/26/2024 10:17 AM ENGINEERING SCIENTIST [facility] Hemoglobin A1C 6.3(H) 0.0 - 5.6 % 09/26/2024 10:17 AM ENGINEERING SCIENTIST [facility] Comment: Normal <5.7% Prediabetes 5.7-6.4% Diabetes 6.5% or higher Note: Adopted from ADA consensus guidelines. Blood BLOOD SPECIMEN / Unknown Venipuncture / Unknown 09/25/2024 2:05 PM ENGINEERING SCIENTIST 09/25/2024 2:05 PM ENGINEERING SCIENTIST us Amy Gutiérrez MD LAB - BLOOD ORDERABLES Fin al Result LABORATORY [facility] [place] [facility] [address] [facility] [address] [place] [id number] * (ABNORMAL) CBC with platelets and differential (09/25/2024 2:05 PM ENGINEERING SCIENTIST) WBC Count 6.9 4.0 - 11.0 10e3/uL 09/25/2024 2:08 PM ENGINEERING SCIENTIST [facility] RBC Count 6.29(H) 4.40 - 5.90 10e6/uL 09/25/2024 2:08 PM ENGINEERING SCIENTIST [facility] Hemoglobin 17.0 13.3 - 17.7 g/dL 09/25/2024 2:08 PM ENGINEERING SCIENTIST [facility] Hematocrit 49.3 40.0 - 53.0 % 09/25/2024 2:08 PM ENGINEERING SCIENTIST [facility] MCV 78 78 - 100 fL 09/25/2024 2:08 PM ENGINEERING SCIENTIST [facility] MCH 27.0 26.5 - 33.0 pg 09/25/2024 2:08 PM ENGINEERING SCIENTIST [facility] MCHC 34.5 31.5 - 36.5 g/dL 09/25/2024 2:08 PM ENGINEERING SCIENTIST [facility] RDW 14.4 10.0 - 15.0 % 09/25/2024 2:08 PM ENGINEERING SCIENTIST [facility] Platelet Count 339 150 - 450 10e3/uL 09/25/2024 2:08 PM ENGINEERING SCIENTIST [facility] % Neutrophils 55 % 09/25/2024 2:08 PM ENGINEERING SCIENTIST [facility] % Lymphocytes 31 % 09/25/2024 2:08 PM ENGINEERING SCIENTIST [facility] % Monocytes 11 % 09/25/2024 2:08 PM ENGINEERING SCIENTIST [facility] % Eosinophils 3 % 09/25/2024 2:08 PM ENGINEERING SCIENTIST [facility] % Basophils 0 % 09/25/2024 2:08 PM ENGINEERING SCIENTIST [facility] % Immature Granulocytes 1 % 09/25/2024 2:08 PM ENGINEERING SCIENTIST [facility] Absolute Neutrophils 3.8 1.6 - 8.3 10e3/uL 09/25/2024 2:08 PM ENGINEERING SCIENTIST [facility] Absolute Lymphocytes 2.2 0.8 - 5.3 10e3/uL 09/25/2024 2:08 PM ENGINEERING SCIENTIST [facility] Absolute Monocytes 0.7 0.0 - 1.3 10e3/uL 09/25/2024 2:08 PM ENGINEERING SCIENTIST [facility] Absolute Eosinophils 0.2 0.0 - 0.7 10e3/uL 09/25/2024 2:08 PM ENGINEERING SCIENTIST [facility] Absolute Basophils 0.0 0.0 - 0.2 10e3/uL 09/25/2024 2:08 PM ENGINEERING SCIENTIST [facility] Absolute Immature Granulocytes 0.0 <=0.4 10e3/uL 09/25/2024 2:08 PM ENGINEERING SCIENTIST [facility] Blood BLOOD SPECIMEN / Unknown Venipuncture / Unknown 09/25/2024 2:05 PM ENGINEERING SCIENTIST 09/25/2024 2:05 PM [facility] Amy Gutiérrez MD LAB - BLOOD ORDERABLES Fin al Result [facility] [place] [facility] [address] [facility] [address] [place] [address], [facility] * (ABNORMAL) Comprehensive metabolic panel (BMP + Alb, Alk Phos, ALT, AST, Total. Bili, TP) (09/25/2024 2:05 PM ENGINEERING SCIENTIST) Sodium 140 135 - 145 mmol/L 09/25/2024 9:49 PM ENGINEERING SCIENTIST [facility] Potassium 3.5 3.4 - 5.3 mmol/L 09/25/2024 9:49 PM ENGINEERING SCIENTIST [facility] Carbon Dioxide (CO2) 23 22 - 29 mmol/L 09/25/2024 9:49 PM ENGINEERING SCIENTIST [facility] Anion Gap 15 7 - 15 mmol/L 09/25/2024 9:49 PM ENGINEERING SCIENTIST [facility] Urea Nitrogen 15.4 6.0 - 20.0 mg/dL 09/25/2024 9:49 PM ENGINEERING SCIENTIST [facility] Creatinine 0.82 0.67 - 1.17 mg/dL 09/25/2024 9:49 PM ENGINEERING SCIENTIST [facility] GFR Estimate >90 >60 mL/min/1.7 3m2 09/25/2024 9:49 PM ENGINEERING SCIENTIST [facility] Comment:eGFR calculated usin 2020 CKD-EPI equation. Calcium 9.7 8.8 - 10.4 mg/dL 09/25/2024 9:49 PM ENGINEERING SCIENTIST [facility] Chloride 102 98 - 107 mmol/L 09/25/2024 9:49 PM ENGINEERING SCIENTIST [facility] Glucose 136(H) 70 - 99 mg/dL 09/25/2024 9:49 PM ENGINEERING SCIENTIST [facility] Alkaline Phosphatase 81 40 - 150 U/L 09/25/2024 9:49 PM ENGINEERING SCIENTIST [facility] AST 24 0 - 45 U/L 09/25/2024 9:49 PM ENGINEERING SCIENTIST [facility] ALT 28 0 - 70 U/L 09/25/2024 9:49 PM ENGINEERING SCIENTIST [facility] Protein Total 6.9 6.4 - 8.3 g/dL 09/25/2024 9:49 PM ENGINEERING SCIENTIST [facility] Albumin 4.4 3.5 - 5.2 g/dL 09/25/2024 9:49 PM ENGINEERING SCIENTIST [facility] Bilirubin Total 0.4 <=1.2 mg/dL 09/25/2024 9:49 PM ENGINEERING SCIENTIST [facility] Blood BLOOD SPECIMEN / Unknown Venipuncture / Unknown 09/25/2024 2:05 PM ENGINEERING SCIENTIST 09/25/2024 2:05 PM ENGINEERING SCIENTIST us Amy Gutiérrez MD LAB - BLOOD ORDERABLES Fin al Result [facility] [place] [facility] [address] [facility] [place] [address] documented in this encounter Visit Diagnoses Diagnosis Other fatigue- Primary Tongue lesion Other specified conditions of the tongue documented in this encounter Additional Health Concerns Assessment Noted Time PHQ-9 Depression Total Score: 14 025 12:28 PM ENGINEERING SCIENTIST documented as of this encounter Care Teams Human Resource Internship Relationship Specialty Start Date End Date Valentin Muñoz MD [facility] [facility] [place] [address] PCP - General Internal Medicine 10/08/10 Valentin Muñoz MD [address] [place] [address] [place] [address] Assigned PCP 10/03/16 Omero Pham MD [facility] [address] [place], [place] [address] Assigned Heart and Vascular Provider 04/12/24 Roro Acevedo PA-C [address] [place], [place] [address] Assigned Cancer Care Provider 04/12/24 Josephine Krishnan PA-C [address] [facility] [place], [place] [address] Assigned Sleep Provider 07/13/24 documented as of this encounter
--- OUTSIDE RECORDS SUMMARY | 2024-10-14 04:40 | XMS_ITS | Encounter Summary ---
Author Organization [facility] Address [address] [place] [address] Care Team Providers Care Tyre Retreader Name Role Phone Valentin Muñoz MD Primary Care Provider [phone] Valentin Muñoz MD Unavailable [phone] Josehpine Krishnan PA-C Unavailable [phone] Omero Pham MD Unavailable + [phone] Roro Acevedo PA-C Unavailable + [phone] Josephine Krishnan PA-C Unavailable + [phone] Encounter Details Date Type Department Care Team [...] often do you attend chur ch or synagogue services? More than 4 times [...] Answer Date Recorded PHQ-2 Score 0 01/28/2022 [facility] - Occupational [...] slept in a chcf (including now)? No 01/28/2022 Sex and Gender Information Value Date Recorded Sex Assigned at Not on file Legal Sex Male 5:04 AM CHIEF DEPUTY CLERK/BAILIFF Gender Identity Not on file Sexual Orientation [...] Influenza 07/26/2022 07/26/2022 08/02/2022 11:3 9 PM CHIEF DEPUTY CLERK/BAILIFF documented as of this encounter Care Teams Tyre Retreader Relationship Specialty Start Date End Date Valentin Muñoz MD [address] [place] [address] [place] [address] PCP - General Internal Medicine 10/08/10 Valentin Muñoz MD [address] [place] [address] [place] [address] Assigned PCP 10/03/16 Josephine Krishnan PA-C [address] [facility] [address] [place], [place] [address] Assigned Sleep Provider 01/29/22 Omero Pham MD [facility] [address] [facility] [address] [place], [place] [address] Assigned Heart and Vascular Provider 04/12/24 Roro Acevedo PA-C [address] [place], [place] [address] Assigned Cancer Care Provider 04/12/24 Josephine Krishnan PA-C [address] [place] [place] [address] Assigned Sleep Provider 07/13/24 documented as of this encounter
--- OUTSIDE RECORDS SUMMARY | 2024-10-14 04:40 | XMS_ITS | Encounter Summary ---
Author Organization [facility] Address [address] [place] [address] Care Team Providers Care Reiki Practitioner Name Role Phone Valentin Muñoz MD Primary Care Provider [phone] Valentin Muñoz MD Unavailable [phone] Josephine Krishnan PA-C Unavailable [phone] Omero Pham MD Unavailable + [phone] Roro AcevedoC Unavailable + [phone] Josephine Krishnan PA-C Unavailable + [phone] Encounter Details Date Type Department Care Team (Late st Contact Info) Description 01/24/2022 [facility] [place] [place] Medical Advice [address] [address] Felipa [place], [place] Social History [...] How often do you attend chur or quaker services? More than 4 times per year [...] Answer Date Recorded PHQ-2 Score 0 01/28/2022 [facility] - Occupational [...] slept in a custodial (including now)? No 01/28/2022 Sex and Gender Information Value Date Recorded Sex Assigned at Not on file Legal Sex Male 5:04 AM SURFACE LAY OUT TECHNICIAN Gender Identity Not on file Sexual Orientation [...] Influenza 07/26/2022 07/26/2022 08/02/2022 11:3 9 PM SURFACE LAY OUT TECHNICIAN documented as of this encounter Care Teams Reiki Practitioner Relationship Specialty Start Date End Date Valentin Muñoz MD [address] [facility] [place] [address] PCP - General Internal Medicine 10/08/10 Valentin Muñoz MD [address] [facility] [place] [address] Assigned PCP 10/03/16 Josephine Krishnan PA-C [address] [facility] [address] [place] [address] Assigned Sleep Provider 01/29/22 Omero Pham MD [facility] [address] [place] [address] Assigned Heart and Vascular Provider 04/12/24 Roro Acevedo PA-C [address] [place] [address] Assigned Cancer Care Provider 04/12/24 Josephine Krishnan PA-C [address] [address] Assigned Sleep Provider 07/13/24 documented as of this encounter
--- OUTSIDE RECORDS SUMMARY | 2024-10-14 04:40 | XMS_ITS | Encounter Summary ---
Author Organization [facility] Address [address] [place] [address] Care Team Providers Care Seismograph Recorder Name Role Phone Valentin Muñoz MD Primary Care Provider [phone] Valentin Muñoz MD Unavailable [phone] Omero Pham MD Unavailable + [phone] Roro Acevedo PA-C Unavailable [phone] Josephine Krishnan-C Unavailable [phone] Encounter Details Date Type Department Care Team (Late st Contact Info) Description 09/26/2024 [facility] [place] Medical Advice [address] [address] Armida Mills, RN Social History [...] How often do you attend chur or adventist services? More than 4 times per year 04/04/2023 Do you belong to any clubs o r organizations such as mandaen groups, unions, fraternal or athletic groups, or [...] Answer Date Recorded PHQ-2 Score 4 09/25/2024 [facility] - Occupational Stress Questionnaire [...] on file Legal Sex Male 5:04 AM UX RESEARCHER Gender Identity Not on file Sexual Orientation Not on file documented as of this encounter Plan of Treatment Not on file documented as of this encounter Visit Diagnoses Not on filedocumented in this encounter Additional Health Concerns Assessment Noted Time PHQ-9 Depression Total Score: 14 025 12:28 PM UX RESEARCHER documented as of this encounter Care Teams Seismograph Recorder Relationship Specialty Start Date End Date Valentin Muñoz MD [address] [place] [address] [place] [address] PCP - General Internal Medicine 10/08/10 Valentin Muñoz MD [address] [place] [address] [place] [address] Assigned PCP 10/03/16 Omero Pham MD [facility] [address] [place] [address] Assigned Heart and Vascular Provider 04/12/24 Roro Acevedo, PAShannaC [address] [place] [address] Assigned Cancer Care Provider 04/12/24 Josephine Krishnan PA-C [address] [facility] [address] [place] [address] Assigned Sleep Provider 07/13/24 documented as of this encounter
--- OUTSIDE RECORDS SUMMARY | 2024-10-14 04:40 | XMS_ITS | Encounter Summary ---
Author Organization [facility] Address [address] [place] [address] Care Team Providers Care Liquor Grinding Mill Operator Name Role Phone Valentin Muñoz MD Primary Care Provider [phone] Valentin Muñoz MD Unavailable [phone] Omero Pham MD Unavailable + [phone] Roro Acevedo PA-C Unavailable + [phone] Josephine Krishnan-C Unavailable +[phone] Reason for Visit * Reason Onset Date Comments Appointment 10/02/2024 Encounter Details Date Type Department Care Team (Late st Contact Info) Description 10/02/2024 Telephone [facility] Janelle [address] [place] [address] Drive [address] [place] [address] Valentin Muñoz MD [address] [place] [address] [place] [address] Appointment Social History Tobacco [...] Answer Date Recorded PHQ-2 Score 4 09/25/2024 [facility] - Occupational Stress Questionnaire Answer [...] place to sleep or slept in a fci (including now)? No 04/04/2023 Adolescent Education Answer [...] on file Legal Sex Male 5:04 AM CLINICAL TRANSPLANT COORDINATOR Gender Identity Not on file Sexual Orientation Not on file documented as of this encounter Miscellaneous Notes * Telephone Encounter - Gege Satnana - 10/02/2024 7:33 AM CST Reason for [...] we send this information to you in [employer] or would you prefer to receive a phone call?: Patient would prefer a phone call Okay to leave a detailed message?: Yes at Home number on file [phone] (home) Call taken on 10/02/2024 at 7:33 AM by Gege Santana ICAL TRANSPLANT COORDINATOR documented in this encounter Plan of Treatment Not on file documented as of this encounter Visit Diagnoses Not on filedocumented in this encounter Additional Health Concerns Assessment Noted Time PHQ-9 Depression Total Score: 14 025 12:28 PM CLINICAL TRANSPLANT COORDINATOR documented as of this encounter Care Teams Liquor Grinding Mill Operator Relationship Specialty Start Date End Date Valentin Muñoz MD [facility] [place] [address] PCP - General Internal Medicine 10/08/10 Valentin Muñoz MD [address] [place] [address] [place] [address] Assigned PCP 10/03/16 Omero Pham MD [facility] [address] [place] [address] Assigned Heart and Vascular Provider 04/12/24 Roro Acevedo PA-C [address] [place] [address] Assigned Cancer Care Provider 04/12/24 Josephine Krishnan PA-C [address] [facility] [place] [address] Assigned Sleep Provider 07/13/24 documented as of this encounter
--- OUTSIDE RECORDS SUMMARY | 2024-10-14 04:40 | XMS_ITS | Encounter Summary ---
Author Organization [facility] Address [address] [place] [address] Care Team Providers Care Ribber Name Role Phone Valentin Muñoz MD Primary Care Provider [phone] Valentin Muñoz MD Unavailable [phone] Omero Pham MD Unavailable + [phone] Roor Acevedo PA-C Unavailable + [phone] Josephine KrishnanC Unavailable + [phone] Encounter Details Date Type Department Care Team (Late st Contact Info) Description 09/25/2024 My[facility] Medical Advice [facility] [place] [address] [place] [address] Drive [address] [place] [address] Valentin Muñoz MD [address] [facility] [place] [address] Social History Tobacco [...] you attend [facility] or taoism services? More than 4 times [...] Answer Date Recorded PHQ-2 Score 4 09/25/2024 [facility] of Occupat ional [facility] - Occupational Stress Questionnaire Answer Date [...] on file Legal Sex Male 5:04 AM ACCOUNT MANAGER Gender Identity Not on file Sexual Orientation Not on file documented as of this encounter Plan of Treatment Not on file documented as of this encounter Visit Diagnoses Not on filedocumented in this encounter Additional Health Concerns Assessment Noted Time PHQ-9 Depression Total Score: 14 025 12:28 PM ACCOUNT MANAGER documented as of this encounter Care Teams Ribber Relationship Specialty Start Date End Date Valentin Muñoz MD [address] [place] [address] [place] [address] PCP - General Internal Medicine 10/08/10 Valentin Muñoz MD [address] [place] [address] [place] [address] Assigned PCP 10/03/16 Omero Pham MD [facility] [address] [place] [address] Assigned Heart and Vascular Provider 04/12/24 Roro Acevedo PA-C [address] [place] [address] Assigned Cancer Care Provider 04/12/24 Josephine Krishnan PA-C [address] [address] Assigned Sleep Provider 07/13/24 documented as of this encounter
--- OUTSIDE RECORDS SUMMARY | 2024-10-14 04:40 | XMS_ITS | Encounter Summary ---
Author Organization [place] [facility] Address [address] [place] [address] Care Team Providers Care Systems Qa Analyst Name Role Phone Valentin Muñoz MD Primary Care Provider [phone] Valentin Muñoz MD Unavailable [phone] Omero Pham MD Unavailable + [phone] Roro Acevedo PA-C Unavailable + [phone] Josephine Krishnan-C Unavailable + [phone] Reason for Visit * Reason Onset Date Comments Refill Request 09/05/2024 Encounter Details Date Type Department Care Team (Late st Contact Info) Description 09/05/2024 [facility] Janelle [address] [place] [address] [address] [place] [address] Valentin Muñoz MD [address] [place] [address] [place] [address] Refill Request Social History [...] often do you attend chur ch or zoroastrian services? More than 4 times per year [...] Answer Date Recorded PHQ-2 Score 2 06/18/2024 [facility] of Occupat ional Health - Occupational [...] on file Legal Sex Male 5:04 AM HOT CAR OPERATOR Gender Identity Not on file Sexual Orientation Not on file documented as of this encounter Miscellaneous Notes * Telephone Encounter - Keke Michel RN - 09/06/2024 1:33 PM CST Refill too soon. CAR OPERATOR documented in this encounter Plan of Treatment Not on file documented as of this encounter Visit Diagnoses Diagnosis Hypokalemia Hypopotassemia documented in this encounter Additional Health Concerns Assessment Noted Time PHQ-9 Depression Total Score: 14 024 1:01 PM CDT documented as of this encounter Care Teams Systems Qa Analyst Relationship Specialty Start Date End Date Valentin Muñoz MD [address] [place] [address] [place] [address] PCP - General Internal Medicine 10/08/10 Valentin Muñoz MD [address] [place] [address] [place] [address] Assigned PCP 10/03/16 Omero Pham MD [facility] [address] [place] [address] Assigned Heart and Vascular Provider 04/12/24 Roro Acevedo PA-C [address] [place] [address] Assigned Cancer Care Provider 04/12/24 Josephine Krishnan PA-C [address] [address] Assigned Sleep Provider 07/13/24 documented as of this encounter
--- OUTSIDE RECORDS SUMMARY | 2024-10-14 04:40 | XMS_ITS | Encounter Summary ---
Author Organization [facility] Address [address] [place] [address]. [place] [address] Care Team Providers Care Needle Setter Name Role Phone Valentin Muñoz MD Primary Care Provider [phone] Valentin Muñoz MD Unavailable [phone] Omero Pham MD Unavailable + [phone] Roro Acevedo PA-C Unavailable +[phone] Josephine Krishnan PA-C Unavailable +[phone] Reason for Visit * Reason Comments Prior Authorization Allyssa KAY Approved Encounter Details Date Type Department Care Team (Latest Contact Info) Description 04/10/2024 Documentation Only [facility] [address] [place] [address] 105 [place] [id number] Shawna Redman RPH Prior Authorization (Allyssa KAY [...] often do you attend chur ch or congregational services? 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 Gender Identity Not on file Sexual Orientation Not on file documented as of this encounter Plan of Treatment Not on file documented as of this encounter Visit Diagnoses Not on filedocumented in this encounter Additional Health Concerns Assessment Noted Time PHQ-9 Depression Total Score: 24 024 11:07 AM CDT documented as of this encounter Care Teams Needle Setter Relationship Specialty Start Date End Date Valentin Muñoz MD [address] [place] [address] [place] [address] PCP - General Internal Medicine 10/08/10 Valentin Muñoz MD [address] [place] [address] [place] [address] Assigned PCP 10/03/16 Omero Pham MD [facility] [address] [facility] 108 [place], [place] [address] Assigned Heart and Vascular Provider 04/12/24 Roro Acevedo PA-C [address] [place], [place] [address] Assigned Cancer Care Provider 04/12/24 Josephine Krishnan PA-C [address] [facility] 103 [place], [place] [address] Assigned Sleep Provider 07/13/24 documented as of this encounter
--- OUTSIDE RECORDS SUMMARY | 2024-10-14 04:40 | XMS_ITS | Encounter Summary ---
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 Gender Identity Not on file Sexual Orientation Not on file documented as of this encounter Plan of Treatment Not on file documented as of this encounter Visit Diagnoses Not on filedocumented in this encounter Additional Health Concerns Assessment Noted Time PHQ-9 Depression Total Score: 14 025 12:28 PM PRINTING SUPPLIES SALES REPRESENTATIVE documented as of this encounter Care Teams Developmental Therapist Relationship Specialty Start Date End Date Valentin Muñoz MD [facility] [place] [address] PCP - General Internal Medicine 10/08/10 Valentin Muñoz MD [address] [place] [address] [place] [address] Assigned PCP 10/03/16 Omero Pham MD [facility] [address] [place], [place] [address] Assigned Heart and Vascular Provider 04/12/24 Roro Acevedo, PAShannaC [address] [place] [address] Assigned Cancer Care Provider 04/12/24 Josephine Krishnan PA-C [address] [place] [address] Assigned Sleep Provider 07/13/24 documented as of this encounter
--- OUTSIDE RECORDS SUMMARY | 2024-10-14 04:40 | XMS_ITS | Encounter Summary ---
Author Organization [facility] Address [address] [place] [address] Care Team Providers Care Shop Tailor Apprentice Name Role Phone Valentin Muñoz MD Primary Care Provider [phone] Valentin Muñoz MD Unavailable [phone] Omero Pham MD Unavailable + [phone] Roro Acevedo PA-C Unavailable + [phone] Josephine KrishnanC Unavailable + [phone] Encounter Details Date Type Department Care Team (Late st Contact Info) Description 05/21/2024 MyC Medical Advice [facility] [address] [facility] [facility] [address] [place] [address] Valentin Muñoz MD [address] [facility] [place] [address] Social History [...] How often do you attend [facility] or denominational services? 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 [place] [address] Assigned Cancer Care Provider 04/12/24 Josephine Krishnan PA-C [address] [address] Assigned Sleep Provider 07/13/24 documented as of this encounter
--- OUTSIDE RECORDS SUMMARY | 2024-10-14 04:40 | XMS_ITS | Encounter Summary ---
Author Organization [facility] Address [address] [place] [address] Care Team Providers Care Sergeant Of Officers Name Role Phone Valentin Muñoz MD Primary Care Provider [phone] Valentin Muñoz MD Unavailable [phone] Josephine Krishnan PA-C Unavailable + [phone] Omero Pham MD Unavailable + [phone] Roro Acevedo PA-C Unavailable + [phone] Josephine Krishnan PA-C Unavailable [phone] Reason for Visit * Reason Comments Medication Refill Encounter Details Date Type Department Care Team (Late st Contact Info) Description 10/02/2020 [facility] [place] [address] [facility] [address] [place] [address] Valentin Louis, PAShannaC [address] [place] [address] Medication Refill Social History Tobacco Use Types [...] on file 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 Gender Identity Not on file Sexual Orientation Not on file documented as of this encounter Plan of Treatment Not on file documented as of this encounter Visit Diagnoses Diagnosis Essential hypertension Unspecified essential hypertension documented in this encounter Additional Health Concerns Infection Onset Date Last Indicated Resolved Time Influenza 07/26/2022 07/26/2022 08/02/2022 11:3 9 PM FORGING ENGINEER documented as of this encounter Care Teams Sergeant Of Officers Relationship Specialty Start Date End Date Valentin Muñoz MD [address] [place] [address] [place] [address] PCP - General Internal Medicine 10/08/10 Valentin Muñoz MD [address] [place] [address] [place] [address] Assigned PCP 10/03/16 Josephine Krishnan PA-C [address] [place] [address] Assigned Sleep Provider 01/29/22 Omero Pham MD [facility] [address] [place], [place] [address] Assigned Heart and Vascular Provider 04/12/24 Roro Acevedo PA-C [address] [place], [place] [address] Assigned Cancer Care Provider 04/12/24 Josephine Krishnan PA-C [address] [place], [place] [address] Assigned Sleep Provider 07/13/24 documented as of this encounter
--- OUTSIDE RECORDS SUMMARY | 2024-10-14 04:40 | XMS_ITS | Encounter Summary ---
Author Organization [facility] Address [address] [place] [address] Care Team Providers Care Mate Chief Name Role Phone Valentin Muñoz MD Primary Care Provider [phone] Valentin Muñoz MD Unavailable [phone] Josephine Krishnan PA-C Unavailable [phone] Omero Pham MD Unavailable [phone] Roro AcevedoC Unavailable + [phone] Josephine Krishnan PA-C Unavailable +[phone] Encounter Details Date Type Department Care Team (Late st Contact Info) Description 01/03/2022 [facility] Medical Advice [facility] [address] [address] Felipa [place], [place] Social History [...] on file 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 Gender Identity Not on file Sexual Orientation Not on file documented as of this encounter Plan of Treatment Not on file documented as of this encounter Visit Diagnoses Not on filedocumented in this encounter Additional Health Concerns Infection Onset Date Last Indicated Resolved Time Influenza 07/26/2022 07/26/2022 08/02/2022 11:3 9 PM CUSTOMER SUPPORT REPRESENTATIVE documented as of this encounter Care Teams Mate Chief Relationship Specialty Start Date End Date Valentin Muñoz MD [address] [place] [address] [place] [address] PCP - General Internal Medicine 10/08/10 Valentin Muñoz MD [address] [place] [address] [place] [address] Assigned PCP 10/03/16 Josephine Krishnan PA-C [address] [place] [address] Assigned Sleep Provider 01/29/22 Omero Pham MD [facility] [address] [place] [address] Assigned Heart and Vascular Provider 04/12/24 Roro Acevedo PA-C [address] [place], [place] [address] Assigned Cancer Care Provider 04/12/24 Josephine Krishnan PA-C [address] [place] [address] Assigned Sleep Provider 07/13/24 documented as of this encounter
--- OUTSIDE RECORDS SUMMARY | 2024-10-14 04:40 | XMS_ITS | Encounter Summary ---
Author Organization [facility] Address [address] [place] [address] Care Team Providers Care Elevator Worker Name Role Phone Valentin Muñoz MD Primary Care Provider [phone] Valentin Muñoz MD Unavailable [phone] Omero Pham MD Unavailable + [phone] Roro Acevedo PA-C Unavailable + [phone] Josephine Krishnan PA-C Unavailable [phone] Reason for Visit * Reason Comments Abdominal Pain Nausea Encounter Details Date Type Department Care Team (Late st Contact Info) Description 10/02/2024 11:30 AM COUNSELING DIRECTOR Office Visit [facility] Janelle [address] [place] [address] Drive [address] [place] [address] Valentin Muñoz MD [address] [place] [address] [place] [address] Acute diarrhea (Primary Dx) [...] Answer Date Recorded PHQ-2 Score 4 09/25/2024 [facility] of Occupat ional Health - Occupational [...] on file 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 Gender Identity Not on file Sexual Orientation Not on file documented as of this encounter Last Filed Vital Signs Vital Sign Reading Time Taken Comments Blood Pressure 127/89 10/02/2024 10:52 AM COUNSELING DIRECTOR Pulse 113 10/02/2024 10:52 AM COUNSELING DIRECTOR Temperature 36.7 C (98 F) 10/02/2024 10:52 AM COUNSELING DIRECTOR Respiratory Rate 20 10/02/2024 10:5 2 AM COUNSELING DIRECTOR Oxygen Saturation 96% 10/02/2024 10: 52 AM COUNSELING DIRECTOR Inhaled Oxygen Concentration - - Weight 186.1 kg (410 lb 4.8 oz) 025 10:52 AM COUNSELING DIRECTOR Height 189 cm (6' 2.41) 10/02/2024 10: 52 AM COUNSELING DIRECTOR Body Mass Index 52.1 10/02/2024 10:52 AM COUNSELING DIRECTOR documented in this encounter Progress Notes * Valentin Muñoz MD - 10/02/2024 11:30 AM CST Assessment & Plan ICD-10-CM 1. Acute diarrhea R19.7 Enteric Bacteria and Virus Panel by ROSA M Stool Concern for infectious cause for his diarrhea. Sx are persisting. Stool ROSA M ordered. Continue to hydrate. [place] [employer]. Valentin Muñoz MD Bassam Cain is a 39 year old, presenting for the following health issues: Abdominal Pain and Nausea 10/02/2024 10:51 AM Additional Questions Roomed by [place] 10/02/2024 10:51 AM Patient Reported Additional Medications [...] distress Signed Electronically by: Valentin Muñoz MD SELING DIRECTOR documented in this encounter Plan of Treatment [...] Depression Total Score: 14 025 12:28 PM COUNSELING DIRECTOR documented as of this encounter Care Teams Elevator Worker Relationship Specialty Start Date End Date Valentin Muñoz MD [address] [facility] [place] [address] PCP - General Internal Medicine 10/08/10 Valentin Muñoz MD [address] [facility] [place] [address] Assigned PCP 10/03/16 Omero Pham MD [facility] [address] [place], [place] [address] Assigned Heart and Vascular Provider 04/12/24 Roro Acevedo PA-C [address] [place], [place] [address] Assigned Cancer Care Provider 04/12/24 Josephine Krishnan PA-C [address] [facility] 103 [place], [place] [address]408[address] Assigned Sleep Provider 07/13/24 documented as of this encounter
--- OUTSIDE RECORDS SUMMARY | 2024-10-14 04:40 | XMS_ITS | Encounter Summary ---
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 Gender Identity Not on file Sexual Orientation Not on file documented as of this encounter Plan of Treatment Not on file documented as of this encounter Visit Diagnoses Not on filedocumented in this encounter Additional Health Concerns Assessment Noted Time PHQ-9 Depression Total Score: 14 025 12:28 PM PETROLEUM SUPPLY SPECIALIST documented as of this encounter Care Teams Cutting Table Operator Relationship Specialty Start Date End Date Valentin Muñoz MD [facility] [place] [address] PCP - General Internal Medicine 10/08/10 Valentin Muñoz MD [address] [place] [address] [place] [address] Assigned PCP 10/03/16 Omero Pham MD [facility] [address] [place], [place] [address] Assigned Heart and Vascular Provider 04/12/24 Roro Acevedo, PAShannaC [address] [place] [address] Assigned Cancer Care Provider 04/12/24 Josephine Krishnan PA-C [address] [place] [address] Assigned Sleep Provider 07/13/24 documented as of this encounter
--- OUTSIDE RECORDS SUMMARY | 2024-10-14 04:40 | XMS_ITS | Encounter Summary ---
Author Organization [place] Address [address] [place] [address] Care Team Providers Care Job Superintendent Name Role Phone Valentin Muñoz MD Primary Care Provider [phone] Valentin Muñoz MD Unavailable [phone] Omero Pham MD Unavailable + [phone] Roro Acevedo PA-C Unavailable + [phone] Josephine Krishnan PA-C Unavailable [phone] Reason for Visit * Reason Onset Date Comments Appointment 09/26/2024 Encounter Details Date Type Department Care Team (Late st Contact Info) Description 09/26/2024 Telephone [facility] [address] [address] Unknown, Provider Appointment (/) Social [...] often do you attend chur ch or alevism services? 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 Pt lives in [place] and works in [place]. Pt agreeable to an appointment at the [facility] location and is scheduled to see Guillermo Quintanilla PA-C on 10/11/2024 at 2:40 pm. Pt verbalized understanding and is agreeable to date/time/location/reason for appointment. Tahmina Caputo RN on 09/26/2024 at 9:52 AM OWNER OPERATOR TRUCK DRIVER * Telephone Encounter - Alison Painter RN - 09/26/2024 9:44 AM OTR OWNER OPERATOR TRUCK DRIVER This is fine, looks like we have openings on 10/07, please call and help arrange. Alison Painter RN on 09/26/2024 at 9:45 AM OWNER OPERATOR TRUCK DRIVER * Telephone Encounter - Kinza Lynn - 09/26/2024 9:[address] Peña see patient for a tongue lesion? OWNER OPERATOR TRUCK DRIVER * Telephone Encounter - Florecita Shah - 09/26/2024 8:57 AM CST [facility] Call Center Phone Message May a detailed message be left on voicemail: yes Reason for Call: Appointment Intake Referring Provider Name: Amy Gutiérrez MD Diagnosis and/or Symptoms: Tongue Lesion No response in chat, patient has no location preference, sending to all Dx not in our protocols Action Taken: Other: ENT Travel Screening: Not Applicable Date of Service: OWNER OPERATOR TRUCK DRIVER documented in this encounter Plan of Treatment Not on file documented as of this encounter Visit Diagnoses Not on filedocumented in this encounter Additional Health Concerns Assessment Noted Time PHQ-9 Depression Total Score: 14 025 12:28 PM OTR OWNER OPERATOR TRUCK DRIVER documented as of this encounter Care Teams Job Superintendent Relationship Specialty Start Date End Date Valentin Muñoz MD [address] [place] [address] [place] [address] PCP - General Internal Medicine 10/08/10 Valentin Muñoz MD [address] [place] [address] [place] [address] Assigned PCP 10/03/16 Omero Pham MD [facility] [address] [facility] [address] [place], [place] [address] Assigned Heart and Vascular Provider 04/12/24 Roro Acevedo, PAShannaC [address] [place] [address] Assigned Cancer Care Provider 04/12/24 Josephine Krishnan PA-C [address] [place] [address] Assigned Sleep Provider 07/13/24 documented as of this encounter
--- OUTSIDE RECORDS SUMMARY | 2024-10-14 04:40 | XMS_ITS | Encounter Summary ---
Author Organization [place] Address [address] [place] [address] Care Team Providers Care Pasting Machine Offbearer Name Role Phone Valentin Muñoz MD Primary Care Provider [phone] Valentin Muñoz MD Unavailable [phone] Josephine Krishnan PA-C Unavailable [phone] Omero Pham MD Unavailable + [phone] Roro AcevedoC Unavailable + [phone] Josephine Krishnan PA-C Unavailable + [phone] Encounter Details Date Type Department Care Team (Late st Contact Info) Description 05/17/2022 MyC Medical Advice [facility] [address] [address] Yeimi Conway, OUTREACH CONSULTANT Social History Tobacco Use Types Packs/Day Years [...] any clubs o r organizations such as druze groups, unions, fraternal or athletic groups, or [...] Answer Date Recorded PHQ-2 Score 0 05/03/2022 [facility] of Occupat ional [facility] - Occupational Stress Questionnaire Answer Date Recorded [...] slept in a fdc (including now)? 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 Gender Identity Not on file Sexual Orientation Not on file documented as of this encounter Plan of Treatment Not on file documented as of this encounter Visit Diagnoses Not on filedocumented in this encounter Additional Health Concerns Infection Onset Date Last Indicated Resolved Time Influenza 07/26/2022 07/26/2022 08/02/2022 11:3 9 PM YARDING AND FOLDING MACHINE OPERATOR documented as of this encounter Care Teams Pasting Machine Offbearer Relationship Specialty Start Date End Date Valentin Muñoz MD [address] [facility] [place] [address] PCP - General Internal Medicine 10/08/10 Valentin Muñoz MD [address] [facility] [place] [address] Assigned PCP 10/03/16 Josephine Krishnan PA-C [address] [facility] [address] [place], [place] [address] Assigned Sleep Provider 01/29/22 Omero Pham MD [facility] [address] [place], [place] [address] Assigned Heart and Vascular Provider 04/12/24 Roro Acevedo PA-C [address] [place], [place] [address] Assigned Cancer Care Provider 04/12/24 Josephine Krishnan PA-C [address] [place] [address] [place] [address] Assigned Sleep Provider 07/13/24 documented as of this encounter
--- OUTSIDE RECORDS SUMMARY | 2024-10-14 04:40 | XMS_ITS | Referral Summary ---
Author Organization [facility] Address [address] [place] [address] Care Team Providers Care Adult Services Librarian Name Role Phone Unknown, Md Primary Care [...] 136 - 145 mmol/L 05/23/2024 3:46 PM [facility] Potassium 4.4 3.4 - 5.1 mmol/L 05/23/2024 3:46 PM [facility] Comment:Interpret with cauti on, specimen slightly hemolyzed. Results may be affected Chloride 110(H) 98 - 108 mmol/L 05/23/2024 3:46 PM [facility] Carbon Dioxide 23 20 - 31 mmol/L 05/23/2024 3:46 PM [facility] BUN (Urea Nitro) 15 9 - 23 mg/dL 05/23/2024 3:46 PM [facility] Creatinine 0.96 0.73 - 1.18 mg/dL 05/23/2024 3:46 PM [facility] Est GFR (CKD-EPI) >60.00 >60.00 mL/min/1. 73m2 05/23/2024 3:46 PM [facility] Comment:Calculation based on the Chronic Kidney Disease Epidemiology Collaboration (CKD-EPI) equation refit without adjustment for race. Glucose 71(L) 74 - 106 mg/dL 05/23/2024 3:46 PM CDT [facility] Calcium, Serum 10.3 8.7 - 10.4 mg/dL 05/23/2024 3:46 PM CDT [facility] Anion Gap 8.0 0.0 - 15.0 mmol/L 05/23/2024 3:46 PM CDT [facility] Magnesium 2.3 1.6 - 2.6 mg/dL 05/23/2024 3:46 PM CDT [facility] Blood Venipuncture / Unknown 05/23/2024 3:02 PM CDT 05/23/2024 3:08 PM CDT us Lucretia Quinones PA-C CHEMISTRY ORDERABLE Final Result [facility] [address] [place] [address] * (ABNORMAL) Lipid Profile [place] (05/15/2024 5:47 AM CDT) Specimen Type Fasting 05/15/2024 7:24 AM T [facility] Cholesterol 110 <200 mg/dL 05/15/2024 7:24 AM T [facility] Triglycerides 86 <150 mg/dL 05/15/2024 7:24 AM T [facility] LDL Chol, Calc 56 <100 mg/dL 05/15/2024 7:24 AM [facility] HDL Cholesterol 37(L) >40 mg/dL 7:24 AM [facility] Chol/HDL Ratio 3.0 0.0 - 4.9 05/15/2024 7:24 AM T [facility] Blood 05/15/2024 5:47 AM CDT 05/15/2024 6:22 AM CDT [facility] - 05/15/2024 7:24 AM CDT LDL CHOLESTEROL REFERENCE RANGES: (FOR PATIENTS W/O HEART DISEASE) <100 mg/dL = Optimal 100-129 mg/dL = Near/Above Optimal 130-159 mg/dL = Borderline High 160-189 mg/dL = High >/= 190 mg/dL = Very High us Ronny Bolivar MD CHEMISTRY ORDERABLE Final Re sult [facility] [address] [place] [address] from Last 3 Months or Most Recently Relevant to Health Maintenance Insurance [facility] [place] Address: [address] [address] Advance Directives For more information, please contact: [phone] * Full Code (Latest Code Status on File) Date Activated Date Inactivated Comments 05/13/2024 1:58 PM 05/28/2024 6:54 PM Question Answer Comments How was code status determined? Patient Care Teams Adult Services Librarian Relationship Specialty Start Date End Date Unknown, NO ADDRESS/PHONE/FAX AFFILIATED PCP - General 05/12/24
--- OUTSIDE RECORDS SUMMARY | 2024-10-14 04:40 | XMS_ITS | Clinical Summary ---
Author Organization [place] Address [address] [place] [address] Care Team Providers Care Dance Entertainer Name Role Phone Valentin Muñoz MD Primary Care Provider [phone] Valentin Muñoz MD Unavailable [phone] Omero Pham MD Unavailable [phone] Roro Acevedo PA-C Unavailable [phone] Josephine Krishnan-C Unavailable [phone] Allergies Active Allergy Reactions Criticality Noted Date [...] (obstructive sleep apnea) 03/24/2022 Overview (03/24/2022): 03/21/2022 [facility] (410.0 lbs) - AHI [...] Department Care Team Description 10/03/2024 MyC Refill [address] [place] [phone] Valentin Muñoz MD Refill Request 10/02/2024 11:30 AM TOP CUTTER Office Visit [address] [place] [address] Valentin Muñoz MD Acute diarrhea (Primary Dx) 10/02/2024 Travel 10/02/[address] [place] [address] Valentin Muñoz MD Appointment 09/26/2024 MyC Medical Advice [facility] [address] [facility] [address] [place] [phone] Armida Mills RN 09/26/2024 Telephone [facility] Caroleen [address] [place] [address] 4th [place] [phone] Unknown, Provider Appointment (/) 09/25/2024 1:40 PM TOP CUTTER Office Visit [address] [place] [address] Rebeca Holt MD Other fatigue (Primary Dx); Tongue lesion 09/25/2024 MyC Medical Advice [address] [place] [phone] Valentin Muñoz MD 09/25/2024 Travel 09/05/2024 MyC Refill [address] [place] [phone] Valentin Muñoz MD Refill Request 08/01/2024 2:30 PM TOP CUTTER Virtual Visit [facility] [address] [place] [phone] Roro Acevedo PA-C Factor V Leiden (Primary Dx); Chronic deep vein thrombosis (DVT) of femoral vein of left lower extremity (H); History of pulmonary embolism; Encounter for anticoagulation discussion and counseling 07/22/2024 4:14 PM TOP CUTTER - 07/22/2024 11:59 PM TOP CUTTER Hospital Encounter [facility] [address] [place] [phone] [facility] Roro Craft, CECI Acute deep vein thrombosis (DVT) of iliac vein of right lower extremity (H) Discharge Disposition: Home or Self Care 07/22/2024 Travel 07/17/2024 1:00 PM TOP CUTTER Documentation Only [facility] Virtual [facility] [address] [place] [address], [address] [place] [phone] Sleep Problem (STM) from Last 3 Months [...] Date Recorded PHQ-2 Score 4 09/25/2024 [place] [facility] - Occupational Stress [...] on file Legal Sex Male 5:04 AM TOP CUTTER Gender Identity Not on file Sexual Orientation Not on file Last Filed Vital Signs Vital Sign Reading Time Taken Comments Blood Pressure 127/89 10/02/2024 10:52 AM TOP CUTTER Pulse 113 10/02/2024 10:52 AM TOP CUTTER Temperature 36.7 C (98 F) 10/02/2024 10:52 AM TOP CUTTER Respiratory Rate 20 10/02/2024 10:5 2 AM TOP CUTTER Oxygen Saturation 96% 10/02/2024 10: 52 AM TOP CUTTER Inhaled Oxygen Concentration - - Weight 186.1 kg (410 lb 4.8 oz) 025 10:52 AM TOP CUTTER Height 189 cm (6' 2.41) 10/02/2024 10: 52 AM TOP CUTTER Body Mass Index 52.1 10/02/2024 10:52 AM TOP CUTTER Plan of Treatment Health Maintenance Due Date [...] PLATELETS & DIFFERENTIAL Routine 09/25/2024 2:05 PM TOP CUTTER Other fatigue HEMOGLOBIN A1C Add-On 09/25/2024 2:05 PM TOP CUTTER Other fatigue CBC WITH PLATELETS AND DIFFERENTIAL Routine 09/25/2024 2:05 PM TOP CUTTER Other fatigue COMPREHENSIVE METABOLIC PANEL Routine 09/25/2024 2:05 PM TOP CUTTER Other fatigue US LOWER EXTREMITY VENOUS DUPLEX RIGHT Routine 07/22/2024 4:54 PM TOP CUTTER Acute deep vein thrombosis (DVT) of iliac [...] with platelets and differential (09/25/2024 2:05 PM TOP CUTTER) WBC Count 6.9 4.0 - 11.0 10e3/uL 09/25/2024 2:08 PM TOP CUTTER [facility] RBC Count 6.29(H) 4.40 - 5.90 10e6/uL 09/25/2024 2:08 PM TOP CUTTER [facility] Hemoglobin 17.0 13.3 - 17.7 g/dL 09/25/2024 2:08 PM TOP CUTTER [facility] Hematocrit 49.3 40.0 - 53.0 % 09/25/2024 2:08 PM TOP CUTTER [facility] MCV 78 78 - 100 fL 09/25/2024 2:08 PM TOP CUTTER [facility] MCH 27.0 26.5 - 33.0 pg 09/25/2024 2:08 PM TOP CUTTER [facility] MCHC 34.5 31.5 - 36.5 g/dL 09/25/2024 2:08 PM TOP CUTTER [facility] RDW 14.4 10.0 - 15.0 % 09/25/2024 2:08 PM TOP CUTTER [facility] Platelet Count 339 150 - 450 10e3/uL 09/25/2024 2:08 PM TOP CUTTER [facility] % Neutrophils 55 % 09/25/2024 2:08 PM TOP CUTTER [facility] % Lymphocytes 31 % 09/25/2024 2:08 PM TOP CUTTER [facility] % Monocytes 11 % 09/25/2024 2:08 PM TOP CUTTER [facility] % Eosinophils 3 % 09/25/2024 2:08 PM TOP CUTTER [facility] % Basophils 0 % 09/25/2024 2:08 PM TOP CUTTER [facility] % Immature Granulocytes 1 % 09/25/2024 2:08 PM TOP CUTTER [facility] Absolute Neutrophils 3.8 1.6 - 8.3 10e3/uL 09/25/2024 2:08 PM TOP CUTTER [facility] Absolute Lymphocytes 2.2 0.8 - 5.3 10e3/uL 09/25/2024 2:08 PM TOP CUTTER [facility] Absolute Monocytes 0.7 0.0 - 1.3 10e3/uL 09/25/2024 2:08 PM TOP CUTTER [facility] Absolute Eosinophils 0.2 0.0 - 0.7 10e3/uL 09/25/2024 2:08 PM TOP CUTTER [facility] Absolute Basophils 0.0 0.0 - 0.2 10e3/uL 09/25/2024 2:08 PM TOP CUTTER [facility] Absolute Immature Granulocytes 0.0 <=0.4 10e3/uL 09/25/2024 2:08 PM TOP CUTTER [facility] Blood BLOOD SPECIMEN / Unknown Venipuncture / Unknown 09/25/2024 2:05 PM TOP CUTTER 09/25/2024 2:05 PM TOP CUTTER us Amy Gutiérrez MD LAB - BLOOD ORDERABLES Fin al Result [facility] [address] [place] [address] [place] [phone], [facility] * (ABNORMAL) Hemoglobin A1c (09/25/2024 2:05 PM TOP CUTTER) [facility] Estimated Average Glucose 134(H) <117 mg/dL 09/26/2024 10:17 AM TOP CUTTER [facility] Hemoglobin A1C 6.3(H) 0.0 - 5.6 % 09/26/2024 10:17 AM TOP CUTTER [facility] Comment: Normal <5.7% Prediabetes 5.7-6.4% Diabetes 6.5% or higher Note: Adopted from ADA consensus guidelines. Blood BLOOD SPECIMEN / Unknown Venipuncture / Unknown 09/25/2024 2:05 PM TOP CUTTER 09/25/2024 2:05 PM TOP CUTTER us Amy Gutiérrez MD LAB - BLOOD ORDERABLES Fin al Result Performing Organization Address [facility] Co de Phone Number LABORATORY [facility] [address] [place] [address] [place] [phone], [facility] * (ABNORMAL) Comprehensive metabolic panel (BMP + Alb, Alk Phos, ALT, AST, Total. Bili, TP) (09/25/2024 2:05 PM TOP CUTTER) [facility] Sodium 140 135 - 145 mmol/L 09/25/2024 9:49 PM TOP CUTTER [facility] Potassium 3.5 3.4 - 5.3 mmol/L 09/25/2024 9:49 PM TOP CUTTER [facility] Carbon Dioxide (CO2) 23 22 - 29 mmol/L 09/25/2024 9:49 PM TOP CUTTER [facility] Anion Gap 15 7 - 15 mmol/L 09/25/2024 9:49 PM TOP CUTTER [facility] Urea Nitrogen 15.4 6.0 - 20.0 mg/dL 09/25/2024 9:49 PM TOP CUTTER [facility] Creatinine 0.82 0.67 - 1.17 mg/dL 09/25/2024 9:49 PM TOP CUTTER [facility] GFR Estimate >90 >60 mL/min/1.7 3m2 09/25/2024 9:49 PM TOP CUTTER [facility] Comment:eGFR calculated usin g 2021 CKD-EPI equation. Calcium 9.7 8.8 - 10.4 mg/dL 09/25/2024 9:49 PM TOP CUTTER [facility] Chloride 102 98 - 107 mmol/L 09/25/2024 9:49 PM TOP CUTTER [facility] Glucose 136(H) 70 - 99 mg/dL 09/25/2024 9:49 PM TOP CUTTER [facility] Alkaline Phosphatase 81 40 - 150 U/L 09/25/2024 9:49 PM TOP CUTTER [facility] AST 24 0 - 45 U/L 09/25/2024 9:49 PM TOP CUTTER [facility] ALT 28 0 - 70 U/L 09/25/2024 9:49 PM TOP CUTTER [facility] Protein Total 6.9 6.4 - 8.3 g/dL 09/25/2024 9:49 PM TOP CUTTER [facility] Albumin 4.4 3.5 - 5.2 g/dL 09/25/2024 9:49 PM TOP CUTTER [facility] Bilirubin Total 0.4 <=1.2 mg/dL 09/25/2024 9:49 PM TOP CUTTER [facility] Blood BLOOD SPECIMEN / Unknown Venipuncture / Unknown 09/25/2024 2:05 PM TOP CUTTER 09/25/2024 2:05 PM TOP CUTTER us Amy Gutiérrez MD LAB - BLOOD ORDERABLES Fin al Result [facility] [place] [facility] [address] [facility], [address] [phone] * US Lower Extremity Venous Duplex Right (07/22/2024 4:54 PM TOP CUTTER) Anatomical Region Laterality Modality Lower Extremity Ultrasound 07/22/2024 4:54 PM TOP CUTTER Impressions 07/22/2024 10:41 PM TOP CUTTER IMPRESSION: 1. Significant interval improvement as compared to the previous study from 04/01/2024. 2. Persistent nonocclusive peripheral remodeled chronic thrombus involving the right proximal to mid femoral vein as detailed above. Previously occlusive thrombus was present throughout the right femoral and popliteal veins. Narrative 07/22/2024 10:41 PM TOP CUTTER EXAM: US LOWER EXTREMITY VENOUS DUPLEX RIGHT LOCATION: [facility] DATE: 07/22/2024 INDICATION: HIstory of RLE [...] US LOWER EXTREMITY VENOUS DUPLEX RIGHT LOCATION: [facility] DATE: 07/22/2024 INDICATION: HIstory of RLE [...] 10:21 AM CDT us Sarah Robles APRN INDUSTRIAL RELATIONS MANAGER LAB - BLOOD ORDERABLES Final Result [facility] [address] [facility], [address] [place] [address] * Lipid panel reflex [...] equal to 220 mg/dL Sarah Robles APRN INDUSTRIAL RELATIONS MANAGER LAB - BLOOD ORDERABLES Final Result [facility] [place] [facility] [address] [facility], [address] [place] [address] from Last 3 Months or Most Recently Relevant to Health Maintenance Insurance [employer] [facility] Advance Directives For more information, please contact: [phone] * Full Code (Latest Code Status on File) Date Activated Date Inactivated Comments 02/19/2024 9:52 PM 02/23/2024 6:57 PM All basic and advanced life-sustaining interventions are performed as appropriate Question Answer Comments Code status determined by: Discussion with patie nt/ legal decision maker Care Teams Dance Entertainer Relationship Specialty Start Date End Date Valentin Muñoz MD [address] [facility] [place] [address] PCP - General Internal Medicine 10/08/10 Valentin Muñoz MD [facility] [place] [address] Assigned PCP 10/03/16 Omero Pham MD [facility] [address] [place], [place] [address] Assigned Heart and Vascular Provider 04/12/24 Roro Acevedo PA-C [address] [place] [address] Assigned Cancer Care Provider 04/12/24 Josephine Krishnan PA-C [address] [facility] [address] [place] [address] Assigned Sleep Provider 07/13/24
--- OUTSIDE RECORDS SUMMARY | 2024-10-14 04:40 | XMS_ITS | Encounter Summary ---
Author Organization [facility] Address [address] [place] [address] Care Team Providers Care Bearing Inspector Name Role Phone Valentin Muñoz MD Primary Care Provider [phone] Valentin Muñoz MD Unavailable [phone] Josephine Krishnan PA-C Unavailable [phone] Omero Pham MD Unavailable [phone] Roro Acevedo-C Unavailable + [phone] Josephine Krishnan PA-C Unavailable [phone] Encounter Details Date Type Department Care Team (Late st Contact Info) Description 11/05/2021 MyC Medical Advice [address] [place] [phone] Dilia Lei Social History Tobacco Use [...] on file Legal Sex Male 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 Gender Identity Not on file Sexual Orientation Not on file documented as of this encounter Plan of Treatment Not on file documented as of this encounter Visit Diagnoses Not on filedocumented in this encounter Additional Health Concerns Infection Onset Date Last Indicated Resolved Time Influenza 07/26/2022 07/26/2022 08/02/2022 11:3 9 PM NUCLEAR CRITICALITY SAFETY ENGINEER documented as of this encounter Care Teams Bearing Inspector Relationship Specialty Start Date End Date Valentin Muñoz MD [address] [place] [address] [place] [address] PCP - General Internal Medicine 10/08/10 Valentin Muñoz MD [address] [place] [address] [place] [address] Assigned PCP 10/03/16 Josephine Krishnan PA-C [address] [place] [address] Assigned Sleep Provider 01/29/22 Omero Pham MD [facility] [address] [place] [address] Assigned Heart and Vascular Provider 04/12/24 Roro Acevedo PA-C [address] [place], [place] [address] Assigned Cancer Care Provider 04/12/24 Josephine Krishnan PA-C [address] [place] [address] Assigned Sleep Provider 07/13/24 documented as of this encounter
--- OUTSIDE RECORDS SUMMARY | 2024-10-14 04:40 | XMS_ITS | Encounter Summary ---
Author Organization [facility] Address [address] [place] [id number] Care Team Providers Care Box Hinge And Lock Attacher Name Role Phone Valentin Muñoz MD Primary Care Provider [phone] Valentin Muñoz MD Unavailable [phone] Omero Pham MD Unavailable [phone] Roro Acevedo PA-C Unavailable + [phone] Josephine Krishnan-C Unavailable + [phone] Reason for Visit * Reason Onset Date Comments Refill Request 10/03/2024 Encounter Details Date Type Department Care Team (Late st Contact Info) Description 10/03/2024 Ashwin Motley [facility] Janelle [address] [place] [address] [address] [place] [phone] Valentin Muñoz MD [address] [place] [address] [place] [id number] Refill Request Social History [...] often do you attend chur ch or judaism services? More than 4 times [...] Answer Date Recorded PHQ-2 Score 4 09/25/2024 [facility] - [...] place to sleep or slept in a long-term (including now)? 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 Gender Identity Not on file Sexual Orientation Not on file documented as of this encounter Plan of Treatment Not on file documented as of this encounter Visit Diagnoses Diagnosis Hypertension Unspecified essential hypertension documented in this encounter Additional Health Concerns Assessment Noted Time PHQ-9 Depression Total Score: 14 025 12:28 PM SAND CONTROL WORKER documented as of this encounter Care Teams Box Hinge And Lock Attacher Relationship Specialty Start Date End Date Valentin Muñoz MD [address] [place] [address] [place] [phone] PCP - General Internal Medicine 10/08/10 Valentin Muñoz MD [address] [place] [address] [place] [id number] Assigned PCP 10/03/16 Omero Pham MD [facility] [address] [facility] [address] [place] [address] Assigned Heart and Vascular Provider 04/12/24 Roro Acevedo PA-C [address] [place] [address] Assigned Cancer Care Provider 04/12/24 Josephine Krishnan PA-C [address] [address] Assigned Sleep Provider 07/13/24 documented as of this encounter
[2024-10-14 04:43] LABS: Basophils Absolute Auto 0.04 K/uL (0.00-0.30); Basophils Percent Auto 0.5 % (0.0-3.0); Eosinophils Absolute Auto 0.31 K/uL (0.00-0.50); Eosinophils Percent Auto 4.2 % (0.0-7.0); Hematocrit 48.8 % (37.0-53.0); Hemoglobin* 16.4 gm/dL (13.5-17.5); Immature Granulocytes Abs Auto 0.06 K/uL (0.00-0.30); Immature Granulocytes Pct Auto 0.8 %; Lymphocytes Absolute Auto 2.28 K/uL (0.90-2.90); Lymphocytes Percent Auto 31.1 % (20-44); Mean Corpuscular HGB Conc 34 gm/dL (32-36); Mean Corpuscular Hemoglobin 27 pg (26-34); Mean Corpuscular Volume 80 fL (80-100); Monocytes Percent Auto 6.6 % (0.0-11.0); Neutrophils Absolute Auto 4.15 K/uL (1.7-7.0); Neutrophils Percent Auto 56.8 % (42.0-72.0); Platelet Count* 289 K/uL (140-440); RDW Coefficient of Variation % 13.8 % (11.5-15.5); Red Blood Count 6.12 m/uL (4.30-5.90); White Blood Count* 7.32 K/uL (4.50-11.00)
[2024-10-14 04:44] LABS: PCR FLU A Negative PCR FLU A (Negative); PCR FLU B Negative PCR FLU B (Negative); PCR RSV Negative PCR RSV (Negative); SARS PCR* Negative SARS-CoV-2 (Negative)
[2024-10-14 04:46] LABS: Slide Review Reflex No
[2024-10-14 04:56] LABS: Chloride* 101 mmol/L (96-114); Potassium* 3.3 mmol/L (3.6-5.1); Sodium* 137 mmol/L (135-149)
[2024-10-14 04:59] LABS: Anion Gap 12 mEq/L (7-15); Blood Urea Nitrogen* 14 mg/dL (5-24); Carbon Dioxide* 24 mmol/L (20-32); Creatinine* 0.7 mg/dL (0.5-1.5); Est. Creatinine Clearance* 153.97; Estimated Glomerular Filt Rate 119 ml/min
[2024-10-14 05:00] LABS: Calcium* 9.1 mg/dL (8.4-10.6); Glucose* 207 mg/dL (60-115)
[2024-10-14 05:13] LABS: NT Pro B Type NatriureticPept* < 20 pg/mL
[2024-10-14 05:14] VITALS: PULSE 111; RESP 19; O2SAT 94
[2024-10-14 05:15] LABS: D Dimer Quantitative* 1.01 ug/ml (0.00-0.50)
--- NOTE | 2024-10-14 05:18 | CRLHL7_ITS ---
For Patients: As a result of the Century Cures Act, medical imaging exams and procedure reports are released immediately into your electronic medical record. You may view this report before your referring provider. If you have questions, please contact your health care provider. INDICATION: Clinical signs and symptoms of an acute stroke.. Cough. Dyspnea. Elevated D-dimer. COMPARISON: No prior CTs available for comparison TECHNIQUE: : CT examination of the chest was performed with the uneventful intravenous administration of 95 cc of Isovue 370 while thin axial sections were obtained from above the apices of the lungs to the lung bases. The examination was timed as a pulmonary artery angiogram. Please note that all CT scans at this facility use dose modulation, iterative reconstruction, and/or weight-based dosing when appropriate to reduce radiation dose to as low as reasonably achievable. FINDINGS: : HEART and MEDIASTINUM: The heart size is normal. There is no mediastinal or hilar adenopathy or mass. There is no pericardial effusion.There are atherosclerotic vascular calcifications including the coronary arteries. Small hiatal hernia PULMONARY ARTERIAL CIRCULATION: Somewhat limited due to bolus timing factors but no PE is identified. Smaller peripheral emboli would be difficult to visualize on this exam. LUNGS and PLEURAL SPACES: The left lung and pleural space appear normal. There is crowding of the bronchovascular markings at the right lung base due to an elevated right hemidiaphragm. This is probably due to atelectasis. Has a separate finding, there is minimal patchy ground-glass in the right upper lobe which is probably minimal inflammatory in nature. No focal consolidation.Normal right pleural space. VISUALIZED UPPER ABDOMEN: The limited visualized upper abdominal structures appear normal. The right diaphragmatic elevation is related to a diaphragmatic eventration OSSEOUS STRUCTURES: Age-appropriate appearance. No acute fracture or destructive process. TUBES and LINES: None. IMPRESSION: 1. Somewhat limited bolus timing but no indication of pulmonary embolus. 2. Left lung and pleural space appear normal. Minimal atelectasis at the right base due to an elevated right hemidiaphragm. Minimal patchy ground-glass in the right upper lobe probably a mild inflammatory process. No consolidation. Normal right pleural space. 3. The elevated right hemidiaphragm appears to be due to diaphragmatic eventration without neo herniation. 4. Atherosclerotic vascular calcifications as above. 5. Small hiatal hernia Please note that all CT scans at this facility use dose modulation, iterative reconstruction, and/or weight-based dosing when appropriate to reduce radiation dose to as low as reasonably achievable. Dictated by Herbert Hunt MD @ 10/14/2024 6:03:36 AM (Electronically Signed)
[2024-10-14] MEDS: KETOROLAC 15 MG/ML inj IVP (05:30)
[2024-10-14 05:43] VITALS: PULSE 124; O2SAT 95
[2024-10-14 05:46] VITALS: BP 158/108; PULSE 114; RESP 24; O2SAT 93
[2024-10-14 06:00] VITALS: PULSE 117; RESP 21; O2SAT 91
[2024-10-14 06:03] VITALS: BP 164/110; PULSE 121; RESP 20; O2SAT 90
== END 2024-10-14 06:24 | disposition home or self-care (01) ==
PROVIDERS: Emergency Provider Family Medicine
DX: J18.9 Pneumonia, unspecified organism (principal)
CPT/HCPCS: 36415; 71046; 71275; 80048; 83880; 85025; 85379; 87631; 93005; 99284; 99285; J1885; Q9967

== ENCOUNTER 2025-04-23 08:42 | Outpatient (CLI) | payer OTHER, SELFPAY ==
[2025-04-23 09:26] LABS: PCR FLU A Negative PCR FLU A (Negative); PCR FLU B Negative PCR FLU B (Negative); SARS PCR* Negative SARS-CoV-2 (Negative)
== END 2025-04-23 08:43 | disposition home or self-care (01) ==
PROVIDERS: Visit Provider Physician Assistant Surgical
DX: R19.7 Diarrhea, unspecified (principal); R53.1 Weakness; R53.81 Other malaise
CPT/HCPCS: 84145; 86140; 86141; 87631

== ENCOUNTER 2025-06-30 14:53 | Outpatient (CLI) | payer OTHER, SELFPAY | END 2025-06-30 14:54 | disposition home or self-care (01) | LOC: NFLDREF 14:54 | PROVIDERS: PCP Family Medicine; Visit Provider Family Medicine | DX: I10 Essential (primary) hypertension (principal) | CPT/HCPCS: 80048 ==

== ENCOUNTER 2025-07-04 16:01 | Outpatient (CLI) | payer OTHER, SELFPAY ==
--- NOTE | 2025-07-04 16:00 | CRLHL7_ITS ---
For Patients: As a result of the Century Cures Act, medical imaging exams and procedure reports are released immediately into your electronic medical record. You may view this report before your referring provider. If you have questions, please contact your health care provider. INDICATION: Right calf pain, history of DVT COMPARISON: None. TECHNIQUE: A compression venous ultrasound exam was performed of the right lower extremity using mcgarry-scale imaging, color Doppler and spectral Doppler analysis. FINDINGS: Sonographic imaging of the right lower extremity demonstrates normal compressibility and color Doppler venous blood flow within the common femoral vein, deep femoral vein, and the proximal greater saphenous vein. Within the thigh, the femoral vein is patent and compressible. At a lower level, the popliteal and posterior tibial veins also show normal compressibility and color Doppler venous blood flow. Limited imaging of the contralateral groin demonstrates a normal spectral waveform and color Doppler venous blood flow within the left common femoral vein. IMPRESSION: No evidence of deep vein thrombosis within the right lower extremity. Dictated by Burak Deluca MD @ 07/07/2025 7:28:15 AM (Electronically Signed)
== END 2025-07-04 16:02 | disposition home or self-care (01) ==
LOC: US 16:02
PROVIDERS: PCP Family Medicine; Visit Provider Physician Assistant Medical
DX: M79.661 Pain in right lower leg (principal); Z86.718 Personal history of other venous thrombosis and embolism
CPT/HCPCS: 93971

== ENCOUNTER 2025-08-01 15:59 | Outpatient (CLI) | payer OTHER, SELFPAY ==
--- NOTE | 2025-08-01 16:00 | CRLHL7_ITS ---
For Patients: As a result of the Century Cures Act, medical imaging exams and procedure reports are released immediately into your electronic medical record. You may view this report before your referring provider. If you have questions, please contact your health care provider. INDICATION: greater swelling since previous ultrasound, prior DVT 02/19/24 at outside facility COMPARISON: 07/04/2025 TECHNIQUE: A compression venous ultrasound exam was performed of the right lower extremity using mcgarry-scale imaging, color Doppler and spectral Doppler analysis. FINDINGS: Sonographic imaging of the right lower extremity demonstrates normal compressibility and color Doppler venous blood flow within the common femoral vein, deep femoral vein, and the proximal greater saphenous vein. Within the thigh, the femoral vein is patent and compressible. At a lower level, the popliteal and proximal posterior tibial veins also show normal compressibility and color Doppler venous blood flow. Limited imaging of the contralateral groin demonstrates a normal spectral waveform and color Doppler venous blood flow within the left common femoral vein. IMPRESSION: No evidence of deep vein thrombosis within the right lower extremity. Dictated by Burak Deluca MD @ 08/04/2025 9:27:15 AM (Electronically Signed)
== END 2025-08-01 16:00 | disposition home or self-care (01) ==
LOC: US 16:00
PROVIDERS: PCP Family Medicine; Visit Provider Family Medicine
DX: R60.0 Localized edema (principal); D68.2 Hereditary deficiency of other clotting factors; Z86.718 Personal history of other venous thrombosis and embolism
CPT/HCPCS: 93971

== ENCOUNTER 2025-08-15 13:52 | Outpatient (CLI) | payer OTHER, SELFPAY ==
[2025-08-15 14:36] LABS: PCR FLU A Negative PCR FLU A (Negative); PCR FLU B Negative PCR FLU B (Negative); SARS PCR* Negative SARS-CoV-2 (Negative)
== END 2025-08-15 13:53 | disposition home or self-care (01) ==
LOC: NFLDUCREF 13:52
PROVIDERS: PCP Family Medicine; Visit Provider Physician Assistant Surgical
DX: R68.89 Other general symptoms and signs (principal)
CPT/HCPCS: 87636